=== PATIENT | male | born 1955 | race Caucasian/White ===

== ENCOUNTER 2020-10-15 13:52 | Inpatient (IN) | payer MEDICARE, OTHER ==
[2020-10-15] MEDS ORDERED: IPRATROPIUM-ALBUTEROL 3 ML NEB INHALATION STA (13:55)
[2020-10-15] MEDS ORDERED: ACETAMINOPHEN TAB 325 MG TAB PO STA (13:55)
--- NOTE | 2020-10-15 14:08 | ED ---
General Adult HPI - General Chief complaint: Altered Mental Status Stated complaint: dyspnea Time Seen by Provider: 10/15/20 13:54 Source: patient, EMS, RN notes reviewed Mode of arrival: EMS Limitations: altered mental status - History of Present Illness Initial comments: Patient is a pleasant 64-year-old male presenting to emergency department by ambulance for dyspnea. Patient reportedly has been missing his dialysis and police have been called several times for well check. Patient has refused to go for dialysis. Patient was found today to be altered during will check. Patient is a poor historian. Patient does admit to being short of breath. EMS was concerned for possible fever. - Related Data Home Medications Medication Instructions Recorded Confirmed Calcium Acetate [PhosLo] 1,334 mg PO AC-TID 02/20/15 03/01/15 amLODIPine [Norvasc] 10 mg PO DAILY@1500 02/20/15 03/01/15 Previous Rx's Medication Instructions Recorded Epoetin Juanpablo [Procrit] 4,000 unit SQ MoWeFr vial 03/09/15 HYDROcodone/APAP 7.5-325MG [[place] 1 each PO Q6H PRN #12 tab 03/09/15 7.5-325] bisacodyL [Dulcolax] 10 mg PO DAILY PRN #20 tablet. 03/09/15 Allergies Allergy/AdvReac Type Severity Reaction Status Date / Time Sulfa (Sulfonamide Allergy Rash/Hives Verified 03/01/15 13:26 Antibiotics) Review of Systems ROS Statement: Those systems with pertinent positive or pertinent negative responses have been documented in the HPI. ROS Other: All systems not noted in ROS Statement are negative. Constitutional: Reports: fever Eyes: Denies: eye pain ENT: Denies: ear pain Respiratory: Reports: dyspnea Cardiovascular: Denies: chest pain Endocrine: Denies: fatigue Gastrointestinal: Denies: abdominal pain Genitourinary: Denies: dysuria Musculoskeletal: Denies: back pain Skin: Denies: rash Neurological: Denies: weakness Past Medical History Past Medical History: Hypertension Additional Past Medical History / Comment(s): DIALYSIS T,TH,SA History of Any Multi-Drug Resistant Organisms: None Reported Additional Past Surgical History / Comment(s): FISTULA Past Psychological History: No Psychological Hx Reported Smoking Status: Unknown if ever smoked Past Alcohol Use History: None Reported Past Drug Use History: None Reported - Past Family History Mother Family Medical History: Dementia, Hypertension General Exam Limitations: altered mental status General appearance: alert Head exam: Present: normocephalic Eye exam: Present: normal appearance ENT exam: Present: mucous membranes dry Neck exam: Present: normal inspection Respiratory exam: Present: respiratory distress, rales Cardiovascular Exam: Present: regular rate, normal rhythm GI/Abdominal exam: Present: soft. Absent: tenderness Extremities exam: Present: pedal edema (+1 bilateral). Absent: calf tenderness Neurological exam: Present: alert. Absent: motor sensory deficit Expanded Neurological exam: Present: protecting the airway Patient oriented to: Present: person, place Psychiatric exam: Present: normal affect, normal mood Skin exam: Present: normal color Course Vital Signs 10/15/20 10/15/20 10/15/20 13:53 14:26 14:35 Temperature 103.3 F H Pulse Rate 87 80 80 Respiratory 22 31 H 21 Rate Blood Pressure 145/83 O2 Sat by Pulse 99 Oximetry - Reevaluation(s) Reevaluation #1: 10/15/20 14:15 Call from patient's dialysis center states last dialysis was 5 days ago EKG Findings - EKG Comments: EKG Findings:: Normal sinus rhythm with rate of 86. MO 158. QRS 124. QT 380. QTC 454 per left axis. LVH with repolarization change. Lateral T wave inversion in V6. Medical Decision Making - Medical Decision Making Patient reevaluated and improving with BiPAP. Patient updated on results and plan. Case was discussed with Dr. Mederos, who will admit for hospital call. - Lab Data Lab Results 10/15/20 10/15/20 10/15/20 Range/Units 14:03 14:03 14:03 PT 13.3 H (9.0-12.0) sec INR 1.3 H (<1.2) APTT 25.5 (22.0-30.0) sec Plasma Lactic Acid Kory 1.7 (0.7-2.0) mmol/L Coronavirus (PCR) Not Detected (Not Detectd) - Radiology Data Radiology results: image reviewed (Masslike consolidation right upper lobe) Disposition Clinical Impression: Pneumonia, Sepsis Disposition: ADMITTED IP TO THIS HOSP Condition: Serious Is patient prescribed a controlled substance at d/c from ED?: No Referrals: None,Stated [Primary Care Provider] - 1-2 days Decision Time: 14:55
[2020-10-15] MEDS ORDERED: IPRATROPIUM-ALBUTEROL 3 ML NEB INHALATION PRN (14:11)
[2020-10-15] MEDS ORDERED: AZITHROMYCIN 500 MG in SODIUM CHLORIDE 0.9% 250 ML IVPB STA (14:11)
[2020-10-15] MEDS ORDERED: PNEUMONIA PROTOCOL UTILIZED 1 EACH MISC PO PRN (14:11)
--- NOTE | 2020-10-15 14:17 | XR ---
EXAMINATION TYPE: XR chest 1V portable DATE OF EXAM: 10/15/2020 COMPARISON: Chest x-ray May 15, 2012 HISTORY: Fever and shortness of breath TECHNIQUE: Single frontal view of the chest is obtained. FINDINGS: There is chronic parenchymal change with new right upper lung opacity. There is additiona l medial right mid to lower lung opacity. No mediastinal shift. Left lung clear. No significant pleur al effusion or pneumothorax. The cardiac silhouette size is more prominent and enlarged on current st udy with atherosclerotic aorta. The osseous structures are intact. IMPRESSION: Cardiomegaly and chronic parenchymal changes with right upper lung and medial right mid to lower lung masslike consolidation. Correlate for multilobar pneumonia. Follow-up studies after rafa atment advised to exclude underlying mass.
[2020-10-15 14:43] LABS: INR 1.3 (<1.2); Partial Thromboplastin Time 25.5 sec (22.0-30.0); Prothrombin Time 13.3 sec (9.0-12.0)
[2020-10-15 14:45] LABS: Albumin 3.3 g/dL (3.5-5.0); Calcium 9.8 mg/dL (8.4-10.2); Total Protein 5.9 g/dL (6.3-8.2)
[2020-10-15 14:53] LABS: Potassium 6.8 mmol/L (3.5-5.1)
[2020-10-15 15:03] LABS: Basophils % (A) 0 %; Eosinophils % (A) 0 %; HCT 33.3 % (39.0-53.0); HGB 11.2 gm/dL (13.0-17.5); Lymphocytes # (A) 0.2 k/uL (1.0-4.8); Lymphocytes % (A) 3 %; MCH 32.9 pg (25.0-35.0); MCHC 33.5 g/dL (31.0-37.0); MCV 98.1 fL (80.0-100.0); Macrocytosis Slight; Mean Platelet Volume 10.6; Monocytes # (A) 0.3 k/uL (0-1.0); Monocytes % (A) 3 %; Neutrophils # (A) 8.3 k/uL (1.3-7.7); Neutrophils % (A) 93 %; Platelet Count 152 k/uL (150-450); RBC 3.39 m/uL (4.30-5.90); RDW 15.6 % (11.5-15.5); WBC 8.9 k/uL (3.8-10.6)
[2020-10-15] MEDS ORDERED: DEXTROSE 50% SYRINGE 50 ML IVP STA (15:51)
[2020-10-15] MEDS ORDERED: INSULIN REGULAR 100 UNIT/ML VIAL (IV) IV ONE (16:00)
[2020-10-15 16:02] LABS: Glucose,Whole Blood 117 mg/dL (75-99)
[2020-10-15] MEDS: IPRATROPIUM-ALBUTEROL 3 ML NEB INHALATION SCH ×2 (16:15→19:21)
[2020-10-15] MEDS ORDERED: CALCIUM GLUCONATE 1 GM in SODIUM CHLORIDE 0.9% 100 ML IVPB ONE (16:38)
[2020-10-15] MEDS ORDERED: SODIUM BICARB 8.4% 50 ML SYR (1 MEQ/ML) IV STA (16:39)
[2020-10-15 16:52] LABS: ABG HCO3 21 mmol/L (21-25); ABG Oxygen Saturation 98.5 % (94-97); ABG PCO2 32 mmHg (35-45); ABG PH 7.43 (7.35-7.45); ABG PO2 143 mmHg (83-108); ABG TCO2 22 mmol/L (19-24)
[2020-10-15 17:04] LABS: Glucose,Whole Blood 178 mg/dL (75-99)
[2020-10-15 17:51] LABS: Calcium 9.7 mg/dL (8.4-10.2); Magnesium 3.1 mg/dL (1.6-2.3); Potassium 5.6 mmol/L (3.5-5.1)
[2020-10-15 18:15] LABS: Phosphorus 9.2 mg/dL (2.5-4.5)
--- NOTE | 2020-10-15 20:54 | P.GSCN ---
History of Present Illness Consult date: 10/15/20 History of present illness: Harinder is a 64 y/o male who presented to the ER via ambulance for shortness of breath. He has refused on multiple occasions to go to dialysis and has reportedly missed the last week. Apparently he has had multiple wellness checks. Poor historian, apparently the daytime dialysis nurse reported the fistula to be non functional and subsequent catheter was requested. Pt unable to give much information given mental status Past Medical History Past Medical History: Hypertension Additional Past Medical History / Comment(s): DIALYSIS T,TH,SA History of Any Multi-Drug Resistant Organisms: None Reported Additional Past Surgical History / Comment(s): FISTULA Past Psychological History: No Psychological Hx Reported Smoking Status: Unknown if ever smoked Past Alcohol Use History: None Reported Past Drug Use History: None Reported - Past Family History Mother Family Medical History: Dementia, Hypertension Medications and Allergies Home Medications Medication Instructions Recorded Confirmed Type amLODIPine [Norvasc] 10 mg PO DAILY 02/20/15 10/15/20 History Carvedilol [Coreg] 25 mg PO BID 10/15/20 10/15/20 History Doxazosin [Cardura] 2 mg PO BID 10/15/20 10/15/20 History Fosrenal 1 tab PO AC-TID 10/15/20 10/15/20 History Pantoprazole Sodium [Protonix] 40 mg PO DAILY PRN 10/15/20 10/15/20 History Patiromer Calcium Sorbitex 8.4 gm PO DAILY 10/15/20 10/15/20 History [Veltassa] Renaplex-D 1 tab PO DAILY 10/15/20 10/15/20 History Sevelamer [Renvela] 1,600 mg PO AC-TID 10/15/20 10/15/20 History cloNIDine HCL [Catapres] 0.3 mg PO Q8H 10/15/20 10/15/20 History Allergies Allergy/AdvReac Type Severity Reaction Status Date / Time Sulfa (Sulfonamide Allergy Rash/Hives Verified 10/15/20 16:06 Antibiotics) Surgical - Exam Vital Signs Temp Pulse Resp BP Pulse Ox 103.3 F H 87 22 145/83 99 10/15/20 13:53 10/15/20 13:53 10/15/20 13:53 10/15/20 13:53 10/15/20 13:53 General is a lethargic male in no acute distress. HEENT normocephalic. CPAP in place. heart appears regular. Lungs with coarse breath sounds. Left upper extremity fistula aneurysmal, good palpable thrill almost throughout. Dilated veins up to axilla/shoulder with palpable thrill. Results - Labs 10/15/20 14:03 10/15/20 17:10 Abnormal Lab Results - Last 24 Hours (Table) 10/15/20 10/15/20 10/15/20 Range/Units 14:03 14:03 14:03 RBC 3.39 L (4.30-5.90) m/uL Hgb 11.2 L (13.0-17.5) gm/dL Hct 33.3 L (39.0-53.0) % RDW 15.6 H (11.5-15.5) % Neutrophils # 8.3 H (1.3-7.7) k/uL Lymphocytes # 0.2 L (1.0-4.8) k/uL PT 13.3 H (9.0-12.0) sec INR 1.3 H (<1.2) ABG pCO2 (35-45) mmHg ABG pO2 (83-108) mmHg ABG O2 Saturation (94-97) % Potassium 6.8 H* (3.5-5.1) mmol/L Carbon Dioxide 18 L (22-30) mmol/L BUN 175 H* (9-20) mg/dL Creatinine 18.65 H* (0.66-1.25) mg/dL Glucose 120 H (74-99) mg/dL POC Glucose (mg/dL) (75-99) mg/dL Phosphorus (2.5-4.5) mg/dL Magnesium (1.6-2.3) mg/dL AST 108 H (17-59) U/L Alkaline Phosphatase 33 L (38-126) U/L Total Protein 5.9 L (6.3-8.2) g/dL Albumin 3.3 L (3.5-5.0) g/dL 10/15/20 10/15/20 10/15/20 Range/Units 16:01 16:49 17:03 RBC (4.30-5.90) m/uL Hgb (13.0-17.5) gm/dL Hct (39.0-53.0) % RDW (11.5-15.5) % Neutrophils # (1.3-7.7) k/uL Lymphocytes # (1.0-4.8) k/uL PT (9.0-12.0) sec INR (<1.2) ABG pCO2 32 L (35-45) mmHg ABG pO2 143 H (83-108) mmHg ABG O2 Saturation 98.5 H (94-97) % Potassium (3.5-5.1) mmol/L Carbon Dioxide (22-30) mmol/L BUN (9-20) mg/dL Creatinine (0.66-1.25) mg/dL Glucose (74-99) mg/dL POC Glucose (mg/dL) 117 H 178 H (75-99) mg/dL Phosphorus (2.5-4.5) mg/dL Magnesium (1.6-2.3) mg/dL AST (17-59) U/L Alkaline Phosphatase (38-126) U/L Total Protein (6.3-8.2) g/dL Albumin (3.5-5.0) g/dL 10/15/20 Range/Units 17:10 RBC (4.30-5.90) m/uL Hgb (13.0-17.5) gm/dL Hct (39.0-53.0) % RDW (11.5-15.5) % Neutrophils # (1.3-7.7) k/uL Lymphocytes # (1.0-4.8) k/uL PT (9.0-12.0) sec INR (<1.2) ABG pCO2 (35-45) mmHg ABG pO2 (83-108) mmHg ABG O2 Saturation (94-97) % Potassium 5.6 H (3.5-5.1) mmol/L Carbon Dioxide 19 L (22-30) mmol/L BUN 181 H* (9-20) mg/dL Creatinine 18.86 H* (0.66-1.25) mg/dL Glucose 161 H (74-99) mg/dL POC Glucose (mg/dL) (75-99) mg/dL Phosphorus 9.2 H* (2.5-4.5) mg/dL Magnesium 3.1 H (1.6-2.3) mg/dL AST (17-59) U/L Alkaline Phosphatase (38-126) U/L Total Protein (6.3-8.2) g/dL Albumin (3.5-5.0) g/dL Diabetes panel 10/15/20 10/15/20 Range/Units 14:03 17:10 Sodium 139 140 (137-145) mmol/L Potassium 6.8 H* 5.6 H (3.5-5.1) mmol/L Chloride 99 100 (98-107) mmol/L Carbon Dioxide 18 L 19 L (22-30) mmol/L BUN 175 H* 181 H* (9-20) mg/dL Creatinine 18.65 H* 18.86 H* (0.66-1.25) mg/dL Glucose 120 H 161 H (74-99) mg/dL Calcium 9.8 9.7 (8.4-10.2) mg/dL AST 108 H (17-59) U/L ALT 36 (4-49) U/L Alkaline Phosphatase 33 L (38-126) U/L Total Protein 5.9 L (6.3-8.2) g/dL Albumin 3.3 L (3.5-5.0) g/dL Calcium panel 10/15/20 10/15/20 Range/Units 14:03 17:10 Calcium 9.8 9.7 (8.4-10.2) mg/dL Phosphorus 9.2 H* (2.5-4.5) mg/dL Albumin 3.3 L (3.5-5.0) g/dL Pituitary panel 10/15/20 10/15/20 Range/Units 14:03 17:10 Sodium 139 140 (137-145) mmol/L Potassium 6.8 H* 5.6 H (3.5-5.1) mmol/L Chloride 99 100 (98-107) mmol/L Carbon Dioxide 18 L 19 L (22-30) mmol/L BUN 175 H* 181 H* (9-20) mg/dL Creatinine 18.65 H* 18.86 H* (0.66-1.25) mg/dL Glucose 120 H 161 H (74-99) mg/dL Calcium 9.8 9.7 (8.4-10.2) mg/dL Adrenal panel 10/15/20 10/15/20 Range/Units 14:03 17:10 Sodium 139 140 (137-145) mmol/L Potassium 6.8 H* 5.6 H (3.5-5.1) mmol/L Chloride 99 100 (98-107) mmol/L Carbon Dioxide 18 L 19 L (22-30) mmol/L BUN 175 H* 181 H* (9-20) mg/dL Creatinine 18.65 H* 18.86 H* (0.66-1.25) mg/dL Glucose 120 H 161 H (74-99) mg/dL Calcium 9.8 9.7 (8.4-10.2) mg/dL Total Bilirubin 1.0 (0.2-1.3) mg/dL AST 108 H (17-59) U/L ALT 36 (4-49) U/L Alkaline Phosphatase 33 L (38-126) U/L Total Protein 5.9 L (6.3-8.2) g/dL Albumin 3.3 L (3.5-5.0) g/dL Assessment and Plan Assessment: ESRD noncompliance [facility] dialysis uremia pyrexic Plan: dialysis access appears to be fine, wait until 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
[2020-10-16] MEDS: IPRATROPIUM-ALBUTEROL 3 ML NEB INHALATION SCH ×4 (07:37→20:45)
--- NOTE | 2020-10-16 08:13 | XR ---
EXAMINATION TYPE: XR chest 1V portable DATE OF EXAM: 10/16/2020 COMPARISON: 10/15/2020 INDICATION: Pneumonia TECHNIQUE: Single frontal view of the chest is obtained. FINDINGS: The heart size is upper limits of normal. The pulmonary vasculature is normal. There is large consolidation right upper lobe can be compatible with pneumonia. There may be some imp rovement over the interval. IMPRESSION: 1. Large right upper lobe consolidation can be compatible with pneumonia. Some improvement may be pre sent. Continued follow-up to clearing is recommended.
[2020-10-16] MEDS ORDERED: AZITHROMYCIN 500 MG TAB PO SCH (09:00)
--- NOTE | 2020-10-16 09:38 | CT ---
EXAMINATION TYPE: CT brain wo con DATE OF EXAM: 10/16/2020 COMPARISON: None HISTORY: Unequal pupils, sepsis, pneumonia CT DLP: 1099.4 mGycm Automated exposure control for dose reduction was used. FINDINGS: Mild to moderate generalized degenerative change. Low-attenuation in the white matter is nonspecific but most typical remote white matter ischemia. No midline shift or mass effect. There is nodular prom inence the basilar tip. Calvarium intact. Craniocervical junction maintained. Sella turcica has a normal appearance. Intracra nial atherosclerotic changes noted. Tiny low density within the right basal ganglia compatible with r emote lacunar infarct. IMPRESSION: DEGENERATIVE AND NONSPECIFIC WHITE MATTER CHANGES MOST TYPICAL OF REMOTE ISCHEMIA NOTED NODULAR PROMI NENCE OF THE BASILAR TIP COULD BE ASSOCIATED WITH A SMALL ANEURYSM SHORT-TERM FOLLOW-UP MRA MASHPEE OF ALFONSO RECOMMENDED..
[2020-10-16] MEDS ORDERED: VANCOMYCIN IV PER PHARMACY 1 EACH MISC MISCELLANE PRN (09:44)
[2020-10-16] MEDS ORDERED: DEXAMETHASONE SOD PHOSPHATE 4 MG/ML 1 ML VIAL IV PRN (09:51)
[2020-10-16] MEDS: LORazepam 2 MG/ML INJ ONE ×2 (09:56→10:06)
[2020-10-16] MEDS ORDERED: VANCOMYCIN 1,250 MG in SODIUM CHLORIDE 0.9% 250 ML IVPB ONE (10:00)
--- NOTE | 2020-10-16 10:02 | P.NPCON ---
History of Present Illness - Reason for Consult end stage renal disease - History of Present Illness Reason for consultation: End-stage renal disease History of present illness: Patient is a 64-year-old male seen in renal consultation for end-stage renal disease. He is maintained on hemodialysis on Monday schedule via left upper extremity AV fistula. Patient is usually very compliant with hemodialysis treatments outpatient but missed the past week. He was found to be altered during wellness check and was brought to the hospital. He is currently on BiPAP. He is not a reliable historian. Potassium level w case was discussed with the neurologist and a CT angiogram of the head and neck will be ordered. as 6.8 on admission and he underwent emergent hemodialysis last night. Labs from this morning are pending. Blood pressures stable. One of his pupils as noted to be nonreactive. Computed tomography scan revealed no acute changes. Patient also had a black colored bowel movement this morning. Vital signs are stable. General: The patient appeared well nourished and normally developed. HEENT: Currently on BiPAP. LUNGS: Breath sounds decreased. HEART: Rate and Rhythm are regular. ABDOMEN: Soft, no distention. EXTREMITITES: No edema. Past Medical History Past Medical History: Hypertension Additional Past Medical History / Comment(s): DIALYSIS ,, History of Any Multi-Drug Resistant Organisms: None Reported Additional Past Surgical History / Comment(s): FISTULA Past Psychological History: No Psychological Hx Reported Smoking Status: Unknown if ever smoked Past Alcohol Use History: None Reported Past Drug Use History: None Reported - Past Family History Mother Family Medical History: Dementia, Hypertension Medications and Allergies Home Medications Medication Instructions Recorded Confirmed Type amLODIPine [Norvasc] 10 mg PO DAILY 02/20/15 10/15/20 History Carvedilol [Coreg] 25 mg PO BID 10/15/20 10/15/20 History Doxazosin [Cardura] 2 mg PO BID 10/15/20 10/15/20 History Fosrenal 1 tab PO AC-TID 10/15/20 10/15/20 History Pantoprazole Sodium [Protonix] 40 mg PO DAILY PRN 10/15/20 10/15/20 History Patiromer Calcium Sorbitex 8.4 gm PO DAILY 10/15/20 10/15/20 History [Veltassa] Renaplex-D 1 tab PO DAILY 10/15/20 10/15/20 History Sevelamer [Renvela] 1,600 mg PO AC-TID 10/15/20 10/15/20 History cloNIDine HCL [Catapres] 0.3 mg PO Q8H 10/15/20 10/15/20 History Allergies Allergy/AdvReac Type Severity Reaction Status Date / Time Sulfa (Sulfonamide Allergy Rash/Hives Verified 10/15/20 16:06 Antibiotics) Physical Exam Vitals: Vital Signs Temp Pulse Pulse Resp BP BP Pulse Ox 10/16/20 07:50 82 10/16/20 07:39 80 10/16/20 04:00 99 F 86 29 H 167/97 10/16/20 02:00 27 H 10/16/20 00:00 99.8 F H 10/15/20 23:04 101.2 F H 67 139/97 10/15/20 19:37 76 10/15/20 19:24 73 10/15/20 18:35 101.2 F H 75 27 H 141/85 95 10/15/20 16:25 80 24 10/15/20 16:15 73 28 H 99 10/15/20 16:00 101.2 F H 77 20 128/82 98 10/15/20 15:30 75 22 135/84 98 10/15/20 15:15 77 20 136/83 98 10/15/20 15:00 81 22 141/84 100 10/15/20 14:35 80 21 10/15/20 14:26 80 31 H 10/15/20 13:53 103.3 F H 87 22 145/83 99 Intake and Output 10/15/20 10/16/20 10/16/20 22:59 06:59 14:59 Output Total 0 1000 Balance 0 -1000 Output: Urine 0 0 Hemodialysis 1000 Other: Voiding Method Urinal # Bowel Movements 1 Weight 63.4 kg Results - Lab Results Most recent lab results ABG pH 7.43 (7.35-7.45) 10/15/20 16:49 ABG pCO2 32 mmHg (35-45) L 10/15/20 16:49 ABG pO2 143 mmHg (83-108) H 10/15/20 16:49 ABG HCO3 21 mmol/L (21-25) 10/15/20 16:49 ABG O2 Saturation 98.5 % (94-97) H 10/15/20 16:49 Calcium 9.7 mg/dL (8.4-10.2) 10/15/20 17:10 Phosphorus 9.2 mg/dL (2.5-4.5) H* 10/15/20 17:10 Magnesium 3.1 mg/dL (1.6-2.3) H 10/15/20 17:10 10/15/20 14:03 10/15/20 17:10 Assessment and Plan Plan: Assessment: 1. End-stage renal disease maintained on hemodialysis on Monday schedule via left approximately AV fistula. 2. Altered mental status. Questionable aneurysm versus stroke. CT angiogram of the head and neck will be ordered. Case discussed with neurology. 3. Hyperkalemia secondary to chronic kidney disease and missed dialysis treatments. Patient has chronic hyperkalemia and is maintained on Veltassa as outpatient. He does not make urine. 4. Melena. Possible uremic bleed. 5. Chronic kidney disease mineral bone disease. 6. Metabolic acidosis secondary to chronic kidney disease. 7. Hypertension with chronic disease. 8. Possible pneumonia on chest x-ray. On antibiotics. Plan: Hemodialysis today and again tomorrow. I will give him a dose of IV DDAVP. Check CBC and BMP now. CT angiogram of the head and neck pending. Add phosphate binders once able to tolerate oral intake. Thank you for the consult patient. I will continue to follow the patient with you during his hospital stay.
[2020-10-16 10:15] LABS: HCT 30.8 % (39.0-53.0); HGB 10.2 gm/dL (13.0-17.5); MCH 32.6 pg (25.0-35.0); MCHC 33.2 g/dL (31.0-37.0); MCV 98.2 fL (80.0-100.0); Macrocytosis Slight; Mean Platelet Volume 9.9; Platelet Count 135 k/uL (150-450); RBC 3.14 m/uL (4.30-5.90); RDW 15.4 % (11.5-15.5); WBC 6.1 k/uL (3.8-10.6)
[2020-10-16] MEDS ORDERED: LACOSAMIDE IV 100 MG in SODIUM CHLORIDE 0.9% 50 ML IVPB STA (10:21)
[2020-10-16 10:24] LABS: INR 1.3 (<1.2); Prothrombin Time 13.6 sec (9.0-12.0)
[2020-10-16 10:25] LABS: Albumin 2.6 g/dL (3.5-5.0); Calcium 9.8 mg/dL (8.4-10.2); Potassium 5.4 mmol/L (3.5-5.1); Total Bilirubin 0.8 mg/dL (0.2-1.3); Total Protein 5.1 g/dL (6.3-8.2)
[2020-10-16] MEDS ORDERED: DESMOPRESSIN ACETATE 19 MCG in SODIUM CHLORIDE 0.9% 50 ML IVPB ONE (11:00)
[2020-10-16] MEDS: PIPERACILLIN-TAZOBACTAM 3.375 GM in SODIUM CHLORIDE 0.9% 100 ML IVPB SCH ×2 (11:08→22:02)
--- NOTE | 2020-10-16 11:10 | P.CNPUL ---
History of Present Illness Consult date: 10/16/20 Requesting physician: Santi Monae Reason for consult: pneumonia Chief complaint: Altered mental status History of present illness: This is a 64-year-old white male with history of chronic renal failure, end- stage renal disease, patient is on hemodialysis normally Monday and Monday. Patient has always been very compliant with hemodialysis treatments and he always showed up to the dialysis unit for hemodialysis on a regular basis. However over the last week, patient has not been showing up for his hemodialysis, and a wellness check on the patient was done, and he was found u se, short of breath, and experiencing episodes of myoclonic jerks, and extremely weak. Patient was brought into the ER, and he was found to have right upper lobe pneumonia possibly even a left lower lobe infiltrate, patient is also found to have profound mental status change with profound weakness, myoclonic jerking, anisocoria with right pupil much more dilated than the left pupil. Patient is a lso found to be extremely uremic and encephalopathic. Workup in the ER included CT of the brain which was nondiagnostic except for slight asymmetry of the optic nerve on the right. Nonspecific white matter changes were noted. His labs showed no evidence of leukocytosis. He was hyperkalemic with a potassium as high as 6.8 acidotic with bicarb of 18 uremic with a BUN of 175 and creatinine of 18.65. COVID-19 PCR was negative. ABG on BiPAP showed a pO2 of 143 pCO2 of 32 pH of 7.43. And this was on IPAP of 12 and EPAP of 6 and FiO2 of 40%. Angiography CT of the head and neck is pending. Patient was admitted to the ICU, and I was asked to see him on consultation. As soon as I evaluated the patient, recommended stat neurological consultation, also recommended changing his antibiotics to vancomycin and Zosyn. Cultures are pending. Review of Systems ROS unobtainable: due to mental status Past Medical History Past Medical History: Hypertension Additional Past Medical History / Comment(s): DIALYSIS T,, History of Any Multi-Drug Resistant Organisms: None Reported Additional Past Surgical History / Comment(s): FISTULA Past Psychological History: No Psychological Hx Reported Smoking Status: Unknown if ever smoked Past Alcohol Use History: None Reported Past Drug Use History: None Reported - Past Family History Mother Family Medical History: Dementia, Hypertension Medications and Allergies Home Medications Medication Instructions Recorded Confirmed Type amLODIPine [Norvasc] 10 mg PO DAILY 02/20/15 10/15/20 History Carvedilol [Coreg] 25 mg PO BID 10/15/20 10/15/20 History Doxazosin [Cardura] 2 mg PO BID 10/15/20 10/15/20 History Fosrenal 1 tab PO AC-TID 10/15/20 10/15/20 History Pantoprazole Sodium [Protonix] 40 mg PO DAILY PRN 10/15/20 10/15/20 History Patiromer Calcium Sorbitex 8.4 gm PO DAILY 10/15/20 10/15/20 History [Veltassa] Renaplex-D 1 tab PO DAILY 10/15/20 10/15/20 History Sevelamer [Renvela] 1,600 mg PO AC-TID 10/15/20 10/15/20 History cloNIDine HCL [Catapres] 0.3 mg PO Q8H 10/15/20 10/15/20 History Allergies Allergy/AdvReac Type Severity Reaction Status Date / Time Sulfa (Sulfonamide Allergy Rash/Hives Verified 10/15/20 16:06 Antibiotics) Physical Exam Vitals: Vital Signs Temp Pulse Pulse Resp BP BP Pulse Ox 10/16/20 07:50 82 10/16/20 07:39 80 10/16/20 04:00 99 F 86 29 H 167/97 10/16/20 02:00 27 H 10/16/20 00:00 99.8 F H 10/15/20 23:04 101.2 F H 67 139/97 10/15/20 19:37 76 10/15/20 19:24 73 10/15/20 18:35 101.2 F H 75 27 H 141/85 95 10/15/20 16:25 80 24 10/15/20 16:15 73 28 H 99 10/15/20 16:00 101.2 F H 77 20 128/82 98 10/15/20 15:30 75 22 135/84 98 10/15/20 15:15 77 20 136/83 98 10/15/20 15:00 81 22 141/84 100 10/15/20 14:35 80 21 10/15/20 14:26 80 31 H 10/15/20 13:53 103.3 F H 87 22 145/83 99 Intake and Output 10/15/20 10/16/20 10/16/20 22:59 06:59 14:59 Output Total 0 1000 0 Balance 0 -1000 0 Output: Urine 0 0 Hemodialysis 1000 0 Other: Voiding Method Urinal # Bowel Movements 1 Weight 63.4 kg Physical Exam: Revealed 64-year-old male frail looking, chronically ill-looking, extremely weak, comprehends simple instructions and follows simple instructions however he is noted to have myoclonic jerks all over his body, patient opens and closes eyes, wiggles his toes, but he has profound weakness in his upper extremities and lower extremities. Slight hyperreflexia is noted, pupils are unequal with the right pupil dilated. Head: Atraumatic, normocephalic. Patient is on BiPAP. HEENT:[Neck is supple.] [No neck masses.] [No thyromegaly.] [No JVD.] Chest: [Symmetrical chest expansion, diminished breath sound bilaterally crackles at the base. No rhonchi and no wheezes. Cardiac Exam: [Normal S1 and S2, no S3 gallop, no murmur.] Abdomen: [Soft, nontender, no megaly, no rebound, no guarding, normal bowel sounds.] Extremities: [No clubbing, no edema, no cyanosis.] [Left Arm AV fistula is noted.] Neurological Exam: Patient is noted to be encephalopathic. He does comprehend and follows simple instructions. But extremely weak. Noted to have myoclonic jerks all over. Noted to have anisocoria with right pupil much larger than the left pupil. Profound weakness noted in upper and lower extremities. Slight hyperreflexia noted. Patient has confused mental status. Results - Laboratory Findings CBC and BMP: 10/16/20 10:04 10/15/20 17:10 ABG ABG pH 7.43 (7.35-7.45) 10/15/20 16:49 ABG pCO2 32 mmHg (35-45) L 10/15/20 16:49 ABG pO2 143 mmHg (83-108) H 10/15/20 16:49 ABG O2 Saturation 98.5 % (94-97) H 10/15/20 16:49 PT/INR, D-dimer PT 13.6 sec (9.0-12.0) H 10/16/20 10:04 INR 1.3 (<1.2) H 10/16/20 10:04 Abnormal lab findings: Abnormal Labs 10/15/20 10/15/20 10/15/20 14:03 14:03 14:03 RBC 3.39 L Hgb 11.2 L Hct 33.3 L RDW 15.6 H Plt Count Neutrophils # 8.3 H Lymphocytes # 0.2 L PT 13.3 H INR 1.3 H APTT ABG pCO2 ABG pO2 ABG O2 Saturation Potassium 6.8 H* Carbon Dioxide 18 L BUN 175 H* Creatinine 18.65 H* Glucose 120 H POC Glucose (mg/dL) Phosphorus Magnesium AST 108 H Alkaline Phosphatase 33 L Total Protein 5.9 L Albumin 3.3 L 10/15/20 10/15/20 10/15/20 16:01 16:49 17:03 RBC Hgb Hct RDW Plt Count Neutrophils # Lymphocytes # PT INR APTT ABG pCO2 32 L ABG pO2 143 H ABG O2 Saturation 98.5 H Potassium Carbon Dioxide BUN Creatinine Glucose POC Glucose (mg/dL) 117 H 178 H Phosphorus Magnesium AST Alkaline Phosphatase Total Protein Albumin 10/15/20 10/16/20 10/16/20 17:10 10:04 10:04 RBC 3.14 L Hgb 10.2 L Hct 30.8 L RDW Plt Count 135 L Neutrophils # Lymphocytes # PT 13.6 H INR 1.3 H APTT 35.0 H ABG pCO2 ABG pO2 ABG O2 Saturation Potassium 5.6 H Carbon Dioxide 19 L BUN 181 H* Creatinine 18.86 H* Glucose 161 H POC Glucose (mg/dL) Phosphorus 9.2 H* Magnesium 3.1 H AST Alkaline Phosphatase Total Protein Albumin - Diagnostic Findings Chest x-ray: image reviewed (As noted in HPI.) Additional studies: CT of the brain as noted in HPI. Assessment and Plan Assessment: Impression: Altered mental status, secondary to acute metabolic encephalopathy with severe uremia, known history of end-stage renal disease, but no hemodialysis for the last 1 week. Papilledema involving the right optic nerve, possible CVA. Further workup is pending. Possible CVA with encephalopathy profound weakness and myoclonic jerks as well as anisocoria/unequal pupillary sizes Acute rhabdomyolysis with significantly elevated CPK mostly because the patient has been inactive, and he may have fallen at home. Acute bilateral pneumonia with significant consolidation in the right upper lobe, strongly suspect aspiration pneumonia. Possible sepsis with pneumonia being the primary source. End-stage renal disease, on hemodialysis. History of hypertension Acute metabolic acidosis secondary to chronic kidney disease. Hyperkalemia secondary to chronic kidney disease and missed hemodialysis. Recommendation: Monitor patient in the ICU. Transition BiPAP to nasal cannula and titrate accordingly. Stat neurology consultation. Decadron 4 mg IV push every 6 hours for papilledema. Ophthalmology consultation to evaluate papilledema. CT angiogram of the head and neck, and consider MRI. EEG to be done. Although I strongly doubt seizures but not entirely ruled out. Hydrate patient with early because of his rhabdomyolysis. And monitor CPK. Hemodialysis today and every day for now. Antibiotics for presumptive aspiration pneumonia and sepsis, will empirically use vancomycin and Zosyn. GI and DVT prophylaxis. Address nutritional support/enteral feeding in the next 24 hours. Prognosis extremely poor and guarded, we'll continue to follow. Patient is critically ill. Time with Patient: Greater than 30
--- NOTE | 2020-10-16 11:33 | P.CNNES ---
History of Present Illness Consult date: 10/16/20 Requesting physician: Wander Fernando Reason for Consult: altered mental status change and unequal pupils History of Present Illness: This is a 64-year-old gentleman with medical history of end-stage renal disease on dialysis, hypertension who presented to the emergency department on the 10/16/2020 the ambulance for dyspnea. History is obtained from medical records as well as the medical team. Per his tile inspector (Dr. Fernando) who is known to him, patient baseline is awake alert rated 3 and verbalizes appropriately and is complying getting his hemodialysis except for the last 1 week he misses dialysis which is off from his baseline. Patient resides home alone. Per the patient nurse it is noted that the patient has unequal pupils and unknown last normal state and has been having tremors throughout the body as well as has confusion. A shallow medication per EMR is clonidine 0.3 mg every 8 hours, amlodipine 10 mg daily, Protonix, carvedilol 25 motor as it 1 tab twice a day, Doxazosin, Renaplex, Renvela, Veltassa. Some other workup in the hospital consisted of: Initial vital signs: Blood pressure of 145/83, heart rate of 87, respiratory of 22, temperature of 103.3 Fahrenheit rectal and pulse ox of 99% room air. He had a repeated the temperature of 101.2. White blood cell is 8.9 and a repeat is 6 0.1 thousand which is considered within normal limits. He had the slight neutrophilic of 8.3. Chemistry panel is a sodium of 139 considered within normal limits, glucose of 120 which is slightly elevated but unremarkable, calcium initial one was 9.8 which is considered within normal limits. His initial potassium is 6.8 which is a significantly elevated. His creatinine on presentation to 18.6 which is above his baseline and he missed dialysis for a week. As well as the BUN is 175 on presentation the which is also elevated. AST of 108 which is slightly elevated but the ALT is 36 which is considered within normal limits. Phosphorus is 9.2 which is elevated and magnesium 3.1 which is also elevated. His potassium is trending down and the last one is 5.6. CT of the head is reported as degenerative and nonspecific white matter changes most typical of remote ischemic noted nodular prominence of basilar tip could be associated with a small aneurysm short segment follow-up [facility] [place] recommended. Chest x-ray was reported as cardiomegaly and chronic parenchymal changes with the right upper long and medial right mid to lower lung mass likely consolidation. Correlate for multi-lobe pneumonia. Follow-up studies after treatment advised to exclude underlying mass. Repeat chest x-ray on 10/16/2020 is reported as large right upper lobe consolidation can be compatible with pneumonia. Some improvement may be present. Continue to follow up to clearing is recommended that. Review of Systems Review of system is limited but the per positive and negative as per HPI. Past Medical History Past Medical History: Hypertension Additional Past Medical History / Comment(s): DIALYSIS T,TH,SA History of Any Multi-Drug Resistant Organisms: None Reported Additional Past Surgical History / Comment(s): FISTULA Past Psychological History: No Psychological Hx Reported Smoking Status: Unknown if ever smoked Past Alcohol Use History: None Reported Past Drug Use History: None Reported - Past Family History Mother Family Medical History: Dementia, Hypertension Medications and Allergies Home Medications Medication Instructions Recorded Confirmed Type amLODIPine [Norvasc] 10 mg PO DAILY 02/20/15 10/15/20 History Carvedilol [Coreg] 25 mg PO BID 10/15/20 10/15/20 History Doxazosin [Cardura] 2 mg PO BID 10/15/20 10/15/20 History Fosrenal 1 tab PO AC-TID 10/15/20 10/15/20 History Pantoprazole Sodium [Protonix] 40 mg PO DAILY PRN 10/15/20 10/15/20 History Patiromer Calcium Sorbitex 8.4 gm PO DAILY 10/15/20 10/15/20 History [Veltassa] Renaplex-D 1 tab PO DAILY 10/15/20 10/15/20 History Sevelamer [Renvela] 1,600 mg PO AC-TID 10/15/20 10/15/20 History cloNIDine HCL [Catapres] 0.3 mg PO Q8H 10/15/20 10/15/20 History Allergies Allergy/AdvReac Type Severity Reaction Status Date / Time Sulfa (Sulfonamide Allergy Rash/Hives Verified 10/15/20 16:06 Antibiotics) Physical Examination - Vital Signs Vital Signs: Vital Signs Temp Pulse Pulse Resp BP BP Pulse Ox 10/16/20 07:50 82 10/16/20 07:39 80 10/16/20 04:00 99 F 86 29 H 167/97 10/16/20 02:00 27 H 10/16/20 00:00 99.8 F H 10/15/20 23:04 101.2 F H 67 139/97 10/15/20 19:37 76 10/15/20 19:24 73 10/15/20 18:35 101.2 F H 75 27 H 141/85 95 10/15/20 16:25 80 24 10/15/20 16:15 73 28 H 99 10/15/20 16:00 101.2 F H 77 20 128/82 98 10/15/20 15:30 75 22 135/84 98 10/15/20 15:15 77 20 136/83 98 10/15/20 15:00 81 22 141/84 100 10/15/20 14:35 80 21 10/15/20 14:26 80 31 H 10/15/20 13:53 103.3 F H 87 22 145/83 99 Intake and Output 10/15/20 10/16/20 10/16/20 22:59 06:59 14:59 Output Total 0 1000 0 Balance 0 -1000 0 Output: Urine 0 0 Hemodialysis 1000 0 Other: Voiding Method Urinal # Bowel Movements 1 Weight 63.4 kg GENERAL: The patient is lying in bed and seems in moderate acute distress. HENT: Supple neck and no nuchal ridigity. CHEST: The heart rate is regular rate rhythm. No murmurs to auscultation. No carotid bruit bilaterally. LUNG: Clear to auscultation bilaterally no wheezing noted throughout. Not labored breathing. ABDOMEN/GI: Bowel sounds present in all 4 quadrants. No tenderness to palpation throughout. NEUROLOGICAL: Higher mental function: The patient is awake, alert, oriented to self only. Otherwise not responding to questions. She is following simple commands (showing thumbs up, closing and opening eyes and sticking tongue out). . Cranial nerves: The pupils are round, unequal, right is 6-7 while left is 3-4 and the right is sluggishly reactive to light. Has moderate ptosis of the right eye. Visual hurtado are hard to assess. Primary gaze is midline or slightly to right. EOM is hard to assess but felt he prefers right and time he would cross midline to left. No facial weakness. Has mild dysarthria. Was able to stick tongue out but was not moving it side to side. Otherwise could not assess rest of cranial nerves because of his condition. Motor: Gait is deferred. The strength is with assistance able to keep arms raised but would drift but did not fall on bed. I felt he was moving the right upper more than left while resting. Bilateral lowers with assistance would drop to floor. Decrease tone throughout. Has tremor throughout the body and it was repeating jerks/twitches and that including face. Cerebellum: Could not assess. Sensation: Could not assess. Reflexes (right/left): 2+ throughout except patellars are 2-3+ Plantars are mute bilaterally. Results Coagulation study: PT of 13.3, INR 1.3 and PTT of 25.5 the repeat INR is 1.3. Sanchez virus PCR was not detected. - Laboratory Findings CBC and BMP: 10/16/20 10:04 10/16/20 10:04 Abnormal Lab Findings: Abnormal Labs 10/15/20 10/15/20 10/15/20 14:03 14:03 14:03 RBC 3.39 L Hgb 11.2 L Hct 33.3 L RDW 15.6 H Plt Count Neutrophils # 8.3 H Lymphocytes # 0.2 L PT 13.3 H INR 1.3 H APTT ABG pCO2 ABG pO2 ABG O2 Saturation Potassium 6.8 H* Carbon Dioxide 18 L BUN 175 H* Creatinine 18.65 H* Glucose 120 H POC Glucose (mg/dL) Phosphorus Magnesium AST 108 H Alkaline Phosphatase 33 L Total Protein 5.9 L Albumin 3.3 L 10/15/20 10/15/20 10/15/20 16:01 16:49 17:03 RBC Hgb Hct RDW Plt Count Neutrophils # Lymphocytes # PT INR APTT ABG pCO2 32 L ABG pO2 143 H ABG O2 Saturation 98.5 H Potassium Carbon Dioxide BUN Creatinine Glucose POC Glucose (mg/dL) 117 H 178 H Phosphorus Magnesium AST Alkaline Phosphatase Total Protein Albumin 10/15/20 10/16/20 10/16/20 17:10 10:04 10:04 RBC 3.14 L Hgb 10.2 L Hct 30.8 L RDW Plt Count 135 L Neutrophils # Lymphocytes # PT 13.6 H INR 1.3 H APTT 35.0 H ABG pCO2 ABG pO2 ABG O2 Saturation Potassium 5.6 H Carbon Dioxide 19 L BUN 181 H* Creatinine 18.86 H* Glucose 161 H POC Glucose (mg/dL) Phosphorus 9.2 H* Magnesium 3.1 H AST Alkaline Phosphatase Total Protein Albumin Assessment and Plan Assessment: Encephalopathy seems multifactorial toxic-metabolic encephalopathy (missed dialysis for the past on week and has worsening of kidney and electrolyte deragement) as well septic encephalopathy (pneumonia). Right eye ptosis, unequal pupils (dilated over the right) and preference to the right: Rule out aneurysm vs mass effect and rule out stroke. Myoclonus throughout the body. Seems possibly metabolic. Cannot rule out seizures. Electrolyte imbalance hyperphosphatemia, hypermagnesemia Acute Pneumonia over the right. Hypertension chronic disease Plan: I ordered CT angiography of the head and neck. I ordered a stat EEG. I prophylactically the start the patient on Vimpat 100 mg IV loading dose then 50 mg IV every 12 hours.Patient was given 2 mg of Ativan in total. Every hour neuro checks Ordered 2-D echo and lipid panel. Ordered MRI of the brain and MRI Cervical without to rule out stroke or mass (Cannot get Gadolinium). Started the patient on Ceftriaxone 2gm every 12 hours, ampicillin and he is on Vacomycine for meningeal coverage (seems unlikely). Ordered hemoglobin A1c, vitamin B-12, folate level. Ordered ammonia level. TSH levels ordered by the ICU team and is pending. Consulted ophthalmology infection disease. 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 We'll defer the rest of medical management to the ICU team met. Next The plan is discussed with the patient's nurse and ICU team. Also discussed case with Nephrology team. Thank you for consultation. UPDATE: CT angiography of the head is reported as no large vessel intracranial arterial occlusion, significant stenosis or aneurysm at change is seen. Incidental severe right upper lobe consolidation and small bilateral pleural effusion. While for the CT angiography of the neck it is reported as moderate atherosclerotic change at the bilateral carotid bifurcation resulting in mild, less than 40% ICA stenosis on both sides. There may be a moderate narrowing at the right vertebral artery origin. MRI the brain is reported as no MRI evidence for recent infarct. Background mild diffuse cerebral atrophy and moderate to advanced nonspecific white matter changes favor product of chronic small vessel ischemia and patient of this age. Other etiologies not entirely excluded. Increased fluid in the left mastoid air cells could reflect product of mastoiditis, correlate clinically. MRI cervical spine was reported as suboptimal study. Multilevel degenerative changes as noted above. Spinal cold caliber and signal preserved. Routine EEG: There is mild to moderate encephalopathy. There are no focal slowing, epileptiform discharges or seizures on the EEG. The tremors/twitching is without EEG correlate for seizures. I spoke with Ophthamologist (Dr. Carballo) and he stated that patient does not have papilledema and he said the patient right eye is dilated and non-reactive. I went back and the his pupils are unequal with right significantly enlarge compared to left. But the right pupil is reactive (7mm-->4mm). Because of the images above the patient does not have an aneurysm, there is no significant occlusion or stenosis, there is no stroke. Unknown cause of patient right pupil symptoms. Ordered lumbar puncture (to rule out any central infection). If cannot get consent for Lumbar puncture, then I am giving an emergent consent. Please obtain opening pressure. I ordered CSF studies and some fungal . Consulted Anesthesiology STAT. This was discussed with the patient's nurse. Dr. Campbell will take over neurology service starting tomorrow AM. Joaquin Camacho M.D. Neuro-Hospitalist Time with Patient: Greater than 30
[2020-10-16 11:57] LABS: T4, Free (Free Thyroxine) 0.73 ng/dL (0.78-2.19)
[2020-10-16] MEDS ORDERED: AMPICILLIN 2,000 MG in SODIUM CHLORIDE 0.9% 100 ML IVPB SCH (12:00)
--- NOTE | 2020-10-16 12:07 | CT ---
EXAMINATION TYPE: CODE STROKE: CTA head neck DATE OF EXAM: 10/16/2020 COMPARISON: CT same day HISTORY: 64-year-old male confusion, Altered mental status. TECHNIQUE: Contiguous axial scanning of the head and neck performed with IV Contrast, patient injecte d with 65ml mL of Isovue 370. Coronal/sagittal MIP reconstructions performed. 3-D reconstructions gen erated on a dedicated independent workstation. CT DLP: 416.9 mGycm Automated exposure control for dose reduction was used. FINDINGS: NECK: Severe consolidation right upper lobe. Small bilateral pleural effusions. Mild atherosclerotic arch calcifications. Conventional vessel branching anatomy. Moderate atherosclerotic narrowing origin of the right vertebral artery and mild at the origin of the left vertebral artery. The vertebral arteries otherwise appear patent throughout the course. Right common carotid artery is patent. Moderate atherosclerotic calcifications right carotid bifurcation with mild, less than 40% narrowing proximal right ICA by NASCET criteria. Left common carotid artery is patent. Moderate atherosclerotic calcifications of the left carotid bifurcation with mild, less than 40% narr owing proximal left ICA by NASCET criteria. HEAD: Mild atherosclerotic calcifications bilateral V4 segments of the vertebral arteries. Otherwise, verte bral and basilar arteries are patent as is the remainder of the posterior circulation. Mild atherosclerotic calcifications within the carotid siphons. Otherwise, the internal carotid arter ies and remainder of the posterior circulation is patent. No aneurysmal change is identified. IMPRESSION: 1. NECK: MODERATE ATHEROSCLEROTIC CHANGE AT THE BILATERAL CAROTID BIFURCATIONS RESULTING IN MILD, LES S THAN 40% PROXIMAL ICA STENOSIS ON BOTH SIDES. THERE MAY BE A MODERATE NARROWING AT THE RIGHT VERTEB RAL ARTERY ORIGIN. 2. HEAD: NO LARGE VESSEL INTRACRANIAL ARTERIAL OCCLUSION, SIGNIFICANT STENOSIS, OR ANEURYSMAL CHANGE IS SEEN. 3. INCIDENTAL: SEVERE RIGHT UPPER LOBE CONSOLIDATION AND SMALL BILATERAL PLEURAL EFFUSIONS.
[2020-10-16] MEDS: SODIUM CHLORIDE 0.9% 1,000 ML IV SCH ×2 (12:26→20:39)
[2020-10-16 13:33] LABS: Magnesium 2.4 mg/dL (1.6-2.3)
[2020-10-16] MEDS ORDERED: LORazepam 2 MG/ML INJ IV STA (14:11)
--- NOTE | 2020-10-16 15:50 | MR ---
EXAMINATION TYPE: MR brain/cspine wo DATE OF EXAM: 10/16/2020 COMPARISON: CT brain earlier today. HISTORY: Right ptosis and unequal pupil. Stroke. R/O mass. Neck pain. TECHNIQUE: Multiplanar, multisequence imaging of the brain and brainstem and cervical spine are all p erformed without IV contrast. FINDINGS: BRAIN: Diffusion weighted images demonstrate no evidence of a recent infarct or other diffusion abnormality. There is mild ventricular and sulcal prominence redemonstrated. There are more prominent focal and co nfluent areas of T2 hyperintensity seen throughout the white matter bilaterally greatest at deep and periventricular levels. Lesions are nonspecific in appearance and distribution favor product of chron ic small vessel ischemic change. Midline structures redemonstrate normal morphology. The craniocervical junction appears within michael l limits. Slight prominence or dolichoectasia of basilar tip redemonstrated otherwise normal flow voi ds are noted. There is small mucous retention cyst or polyp in the inferior posterior left maxillary sinus. The visualized sinuses are otherwise clear and the globes are intact. Increased fluid signal l eft mastoid air cells redemonstrated IMPRESSION: 1. No MRI evidence for recent infarct. 2. Background mild diffuse cerebral atrophy and moderate to advanced nonspecific white matter changes favor product of chronic small vessel ischemic change in patient of this age. Other etiologies not e ntirely excluded. 3. Increased fluid signal left mastoid air cells could reflect product of mastoiditis, correlate clin ically. C-SPINE: FINDINGS: Exam suboptimal due to artifact degradation. Sagittal images of the cervical spine show the craniocervical junction to appear within normal limits. The cervical and upper thoracic spinal cord is normal in course caliber and signal. Slight grade 1 retrolisthesis C3 on C4. The vertebral body heights are normal. Moderate multilevel disc space narrowing and mild anterior spurring. Overall dif fuse diminished T1 and T2 signal of osseous structures perhaps artifact as no diffuse sclerosis seen on recent CT, correlate to exclude myeloproliferative disorder. Axial images significantly degraded by artifact. Axial images at C3-C4 level show broad-based right p aracentral spur disc complex effacing anterior thecal sac and causing moderate right-sided neural for aminal narrowing protrusion. Axial images show neural foramina to be mild to moderately narrowed at C 4-C5 level due to broad-based disc protrusion. Patent bilateral neural foramina at C5-C6 and C7-T1 1 levels with more moderate to severe right-sided narrowing at C6-C7 level thought present due to poste rior spur disc complex. IMPRESSION: Suboptimal study. Multilevel degenerative changes as noted above. Spinal cord caliber and signal preserved.
--- NOTE | 2020-10-16 17:09 | P.HPIM ---
History of Present Illness H&P Date: 10/16/20 Chief Complaint: Altered mental status 64-year-old male presenting to emergency department by ambulance for dyspnea. Patient reportedly has been missing his dialysis and police have been called several times for well check. Patient has refused to go for dialysis. Patient was found today to be altered during will check. Patient is a poor historian. Patient does admit to being short of breath. EMS was concerned for possible fever. Initial vital signs: Blood pressure of 145/83, heart rate of 87, respiratory of 22, temperature of 103.3 Fahrenheit rectal and pulse ox of 99% room air. He had a repeated the temperature of 101.2. White blood cell is 8.9 and a repeat is 6 0.1 thousand which is considered within normal limits. He had the slight neutrophilic of 8.3. Chemistry panel is a sodium of 139 considered within normal limits, glucose of 120 which is slightly elevated but unremarkable, calcium initial one was 9.8 which is considered within normal limits. His initial potassium is 6.8 which is a significantly elevated. His creatinine on presentation to 18.6 which is above his baseline and he missed dialysis for a week. As well as the BUN is 175 on presentation the which is also elevated. AST of 108 which is slightly elevated but the ALT is 36 which is considered within normal limits. Phosphorus is 9.2 which is elevated and magnesium 3.1 which is also elevated. His potassium is trending down and the last one is 5.6. CT of the head is reported as degenerative and nonspecific white matter changes most typical of remote ischemic noted nodular prominence of basilar tip could be associated with a small aneurysm short segment follow-up MRA [place] of [place] recommended. Chest x-ray was reported as cardiomegaly and chronic parenchymal changes with the right upper long and medial right mid to lower lung mass likely consolidation. Correlate for multi-lobe pneumonia. Follow-up studies after treatment advised to exclude underlying mass. Repeat chest x-ray on 10/16/2020 is reported as large right upper lobe consolidation can be compatible with pneumonia. Some improvement may be present. Continue to follow up to clearing is recommended that. Review of Systems ROS unobtainable: due to mental status Past Medical History Past Medical History: Hypertension Additional Past Medical History / Comment(s): DIALYSIS T,TH,SA History of Any Multi-Drug Resistant Organisms: None Reported Additional Past Surgical History / Comment(s): FISTULA Past Psychological History: No Psychological Hx Reported Smoking Status: Unknown if ever smoked Past Alcohol Use History: None Reported Past Drug Use History: None Reported - Past Family History Mother Family Medical History: Dementia, Hypertension Medications and Allergies Home Medications Medication Instructions Recorded Confirmed Type amLODIPine [Norvasc] 10 mg PO DAILY 02/20/15 10/15/20 History Carvedilol [Coreg] 25 mg PO BID 10/15/20 10/15/20 History Doxazosin [Cardura] 2 mg PO BID 10/15/20 10/15/20 History Fosrenal 1 tab PO AC-TID 10/15/20 10/15/20 History Pantoprazole Sodium [Protonix] 40 mg PO DAILY PRN 10/15/20 10/15/20 History Patiromer Calcium Sorbitex 8.4 gm PO DAILY 10/15/20 10/15/20 History [Veltassa] Renaplex-D 1 tab PO DAILY 10/15/20 10/15/20 History Sevelamer [Renvela] 1,600 mg PO AC-TID 10/15/20 10/15/20 History cloNIDine HCL [Catapres] 0.3 mg PO Q8H 10/15/20 10/15/20 History Allergies Allergy/AdvReac Type Severity Reaction Status Date / Time Sulfa (Sulfonamide Allergy Rash/Hives Verified 10/15/20 16:06 Antibiotics) Physical Exam Vitals: Vital Signs Temp Pulse Pulse Resp BP BP Pulse Ox 10/16/20 07:50 82 10/16/20 07:39 80 10/16/20 04:00 99 F 86 29 H 167/97 10/16/20 02:00 27 H 10/16/20 00:00 99.8 F H 10/15/20 23:04 101.2 F H 67 139/97 10/15/20 19:37 76 10/15/20 19:24 73 10/15/20 18:35 101.2 F H 75 27 H 141/85 95 10/15/20 16:25 80 24 10/15/20 16:15 73 28 H 99 10/15/20 16:00 101.2 F H 77 20 128/82 98 10/15/20 15:30 75 22 135/84 98 10/15/20 15:15 77 20 136/83 98 10/15/20 15:00 81 22 141/84 100 10/15/20 14:35 80 21 10/15/20 14:26 80 31 H 10/15/20 13:53 103.3 F H 87 22 145/83 99 Intake and Output 10/15/20 10/16/20 10/16/20 22:59 06:59 14:59 Output Total 0 1000 0 Balance 0 -1000 0 Output: Urine 0 0 Hemodialysis 1000 0 Other: Voiding Method Urinal # Bowel Movements 1 Weight 63.4 kg Head: Atraumatic, normocephalic. Patient is on BiPAP. HEENT:[Neck is supple.] [No neck masses.] [No thyromegaly.] [No JVD.] Chest: [Symmetrical chest expansion, diminished breath sound bilaterally crackles at the base. No rhonchi and no wheezes. Cardiac Exam: [Normal S1 and S2, no S3 gallop, no murmur.] Abdomen: [Soft, nontender, no megaly, no rebound, no guarding, normal bowel sounds.] Extremities: [No clubbing, no edema, no cyanosis.] [Left Arm AV fistula is noted.] Neurological Exam: Patient is noted to be encephalopathic. He does comprehend a nd follows simple instructions. But extremely weak. Noted to have myoclonic jerks all over. Noted to have anisocoria with right pupil much larger than the left pupil. Profound weakness noted in upper and lower extremities. Slight hyperreflexia noted. Patient has confused mental status. Results CBC & Chem 7: 10/16/20 10:04 10/16/20 10:04 Labs: Abnormal Lab Results - Last 24 Hours (Table) 10/15/20 10/15/20 10/15/20 Range/Units 14:03 14:03 14:03 RBC 3.39 L (4.30-5.90) m/uL Hgb 11.2 L (13.0-17.5) gm/dL Hct 33.3 L (39.0-53.0) % RDW 15.6 H (11.5-15.5) % Plt Count (150-450) k/uL Neutrophils # 8.3 H (1.3-7.7) k/uL Lymphocytes # 0.2 L (1.0-4.8) k/uL PT 13.3 H (9.0-12.0) sec INR 1.3 H (<1.2) APTT (22.0-30.0) sec ABG pCO2 (35-45) mmHg ABG pO2 (83-108) mmHg ABG O2 Saturation (94-97) % Potassium 6.8 H* (3.5-5.1) mmol/L Carbon Dioxide 18 L (22-30) mmol/L BUN 175 H* (9-20) mg/dL Creatinine 18.65 H* (0.66-1.25) mg/dL Glucose 120 H (74-99) mg/dL POC Glucose (mg/dL) (75-99) mg/dL Phosphorus (2.5-4.5) mg/dL Magnesium (1.6-2.3) mg/dL AST 108 H (17-59) U/L Alkaline Phosphatase 33 L (38-126) U/L Creatine Kinase (55-170) U/L Total Protein 5.9 L (6.3-8.2) g/dL Albumin 3.3 L (3.5-5.0) g/dL TSH (0.465-4.680) mIU/L 10/15/20 10/15/20 10/15/20 Range/Units 16:01 16:49 17:03 RBC (4.30-5.90) m/uL Hgb (13.0-17.5) gm/dL Hct (39.0-53.0) % RDW (11.5-15.5) % Plt Count (150-450) k/uL Neutrophils # (1.3-7.7) k/uL Lymphocytes # (1.0-4.8) k/uL PT (9.0-12.0) sec INR (<1.2) APTT (22.0-30.0) sec ABG pCO2 32 L (35-45) mmHg ABG pO2 143 H (83-108) mmHg ABG O2 Saturation 98.5 H (94-97) % Potassium (3.5-5.1) mmol/L Carbon Dioxide (22-30) mmol/L BUN (9-20) mg/dL Creatinine (0.66-1.25) mg/dL Glucose (74-99) mg/dL POC Glucose (mg/dL) 117 H 178 H (75-99) mg/dL Phosphorus (2.5-4.5) mg/dL Magnesium (1.6-2.3) mg/dL AST (17-59) U/L Alkaline Phosphatase (38-126) U/L Creatine Kinase (55-170) U/L Total Protein (6.3-8.2) g/dL Albumin (3.5-5.0) g/dL TSH (0.465-4.680) mIU/L 10/15/20 10/16/20 10/16/20 Range/Units 17:10 10:04 10:04 RBC 3.14 L (4.30-5.90) m/uL Hgb 10.2 L (13.0-17.5) gm/dL Hct 30.8 L (39.0-53.0) % RDW (11.5-15.5) % Plt Count 135 L (150-450) k/uL Neutrophils # (1.3-7.7) k/uL Lymphocytes # (1.0-4.8) k/uL PT 13.6 H (9.0-12.0) sec INR 1.3 H (<1.2) APTT 35.0 H (22.0-30.0) sec ABG pCO2 (35-45) mmHg ABG pO2 (83-108) mmHg ABG O2 Saturation (94-97) % Potassium 5.6 H (3.5-5.1) mmol/L Carbon Dioxide 19 L (22-30) mmol/L BUN 181 H* (9-20) mg/dL Creatinine 18.86 H* (0.66-1.25) mg/dL Glucose 161 H (74-99) mg/dL POC Glucose (mg/dL) (75-99) mg/dL Phosphorus 9.2 H* (2.5-4.5) mg/dL Magnesium 3.1 H (1.6-2.3) mg/dL AST (17-59) U/L Alkaline Phosphatase (38-126) U/L Creatine Kinase (55-170) U/L Total Protein (6.3-8.2) g/dL Albumin (3.5-5.0) g/dL TSH (0.465-4.680) mIU/L 10/16/20 Range/Units 10:04 RBC (4.30-5.90) m/uL Hgb (13.0-17.5) gm/dL Hct (39.0-53.0) % RDW (11.5-15.5) % Plt Count (150-450) k/uL Neutrophils # (1.3-7.7) k/uL Lymphocytes # (1.0-4.8) k/uL PT (9.0-12.0) sec INR (<1.2) APTT (22.0-30.0) sec ABG pCO2 (35-45) mmHg ABG pO2 (83-108) mmHg ABG O2 Saturation (94-97) % Potassium 5.4 H (3.5-5.1) mmol/L Carbon Dioxide (22-30) mmol/L BUN 119 H* (9-20) mg/dL Creatinine 12.68 H* (0.66-1.25) mg/dL Glucose 110 H (74-99) mg/dL POC Glucose (mg/dL) (75-99) mg/dL Phosphorus (2.5-4.5) mg/dL Magnesium (1.6-2.3) mg/dL AST 98 H (17-59) U/L Alkaline Phosphatase 27 L (38-126) U/L Creatine Kinase 4425 H* (55-170) U/L Total Protein 5.1 L (6.3-8.2) g/dL Albumin 2.6 L (3.5-5.0) g/dL TSH 6.410 H (0.465-4.680) mIU/L Assessment and Plan Assessment: 1. Altered mental status, secondary to acute metabolic encephalopathy with severe uremia - known history of end-stage renal disease, but no hemodialysis for the last 1 week. - Nephrology is on board and patient will undergo hemodialysis today and again tomorrow 2. Papilledema involving the right optic nerve, possible CVA. Further workup is pending. -- Possible CVA with encephalopathy profound weakness and myoclonic jerks as well as anisocoria/unequal pupillary sizes; patient has been placed on Decadron 4 mg IV every 6 hours her papilledema - Stat neurology consultation is obtained; ophthalmology is consulted - CT head and CTA head and neck is unremarkable; patient is to receive an MRI of the brain; EEG is ordered and pending 3. Acute rhabdomyolysis with significantly elevated CPK mostly because the patient has been inactive, and he may have fallen at home. - Patient will be treated with IV fluid hydration; hemodialysis per nephrology recommendations; we will monitor strict VIOLA's, daily weights, renal function and electrolytes 4. Acute bilateral pneumonia with significant consolidation in the right upper lobe, strongly suspect aspiration pneumonia. --Possible sepsis with pneumonia being the primary source. - Drying Room Attendant service recommending IV Zosyn and vancomycin for presumption of aspiration pneumonia and sepsis - Further recommendations once blood cultures and sputum cultures are resulted 5. End-stage renal disease, on hemodialysis. --Acute metabolic acidosis secondary to chronic kidney disease. --Hyperkalemia secondary to chronic kidney disease and missed hemodialysis. 6. Hypertension; amlodipine 10 mg daily, Coreg 25 mg twice a day, Cardura 2 mg twice a day and clonidine 0.3 mg every 8 hours DVT prophylaxis; SCDs CODE STATUS; full code
--- NOTE | 2020-10-16 17:26 | CONS ---
CONSULTATION DATE OF SERVICE: 10/16/2020. HISTORY: This is a 64-year-old white male with a history of chronic renal failure, who was found unresponsive, admitted to the hospital with severe mental status changes. The patient was diagnosed with right-sided pneumonia with questionable involvement of the left side as well. Of note, that the patient's pupil is dilated in his right eye. The patient is currently resting in bed and is not responsive to commands. PHYSICAL EXAM: External examination revealed significant ptosis bilaterally. It does not appear there is significant asymmetry in his ptosis at this time. Visual acuity: I was not able to obtain the vision due to the patient's current mental status. The pupils were asymmetric with the right side measuring 6 mm and fixed. There was no significant responsiveness to light stimulus. The left side was 3 mm and responsive to light. I could not appreciate any significant afferent pupillary defect at this at this time. Extraocular movements were difficult to determine. However, they appeared full during my examination. The patient was able to assume primary gaze when both eyelids were lifted up and the proper alignment appeared to be evident. In attempt to have the patient move his eyes to the left gaze position, the right eye was able to cross the midline. However, he did appear to favor his right side when looking at objects. On penlight exam, the lids were normal in their contour. The conjunctivae was quiet. Both corneas were clear. The anterior chambers were well formed. The iris was normal and the lenses appeared clear. On fundus exam, the patient has normal-appearing maculae vessels and discs. IMPRESSION: Anisocoria, due to this patient's the patient's mental condition, I cannot rule out the possibility of a 3rd nerve palsy on the right side. Typically, these result in the deviation of the affected eye to the lateral gaze in that eye. However, symptoms are often difficult to determine in an unresponsive patient. With the pupil enlargement of the right side, consideration of a compressive lesion must be considered. This includes aneurysm of the [place] and it is my understanding that the CTA was negative. A CT of the head likewise was negative. I would still recommend an MRI to determine the presence of any compressive lesion of the 3rd nerve on the right side. An MRI is currently pending. However, contrast cannot be used due to the patient's current renal status. I will continue to follow this patient and feel free to consult me should a change in his mental status occur. Thank you very much for the consultation. MMDANISH / IJN: [id number] /
--- NOTE | 2020-10-16 17:48 | ECHOF ---
Referral Reason:rule out stroke MEASUREMENTS -------- HEIGHT: 172.7 cm WEIGHT: 63.0 kg BP: 167/97 RVIDd: 3.8 cm (< 3.3) IVSd: 1.7 cm (0.6 - 1.1) LVIDd: 5.6 cm (3.9 - 5.3) LVPWd: 1.5 cm (0.6 - 1.1) IVSs: 2.2 cm LVIDs: 3.7 cm LVPWs: 2.5 cm LA Diam: 5.4 cm (2.7 - 3.8) Ao Diam: 3.1 cm (2.0 - 3.7) AV Cusp: 1.5 cm (1.5 - 2.6) LA Diam: 4.6 cm (2.7 - 3.8) MV EXCURSION: 19.910 mm (> 18.000) MV EF SLOPE: 103 mm/s (70 - 150) EPSS: 0.9 cm MV E Fran: 0.74 m/s MV DecT: 170 ms MV A Fran: 1.24 m/s MV E/A Ratio: 0.59 AV maxP.01 mmHg AV meanP.71 mmHg RAP: 5.00 mmHg RVSP: 50.94 mmHg FINDINGS -------- Sinus rhythm. This was a technically adequate study. The left ventricular size is normal. There is severe concentric left ventricular hypertrophy. Ove rall left ventricular systolic function is low-normal with, an EF between 50 - 55 %. The right ventricle is mild to moderately enlarged. The left atrium is markedly dilated. The right atrium is moderately enlarged. Interatrial and interventricular septum intact. There is mild aortic valve sclerosis. There is mild aortic regurgitation. There is mild aortic st enosis present. Peak/mean gradient across the Aortic Valve is 31.01mmHg / 16.71mmHg. The mitral valve leaflets are mild to moderately thickened. [id number] mitral regurgitatio n is present. Moderate tricuspid regurgitation present. There is moderate pulmonary hypertension. The right jaida tricular systolic pressure, as measured by Doppler, is 50.94mmHg. There is no pulmonic regurgitation present. The aortic root size is normal. Normal inferior vena cava with normal inspiratory collapse consistent with estimated right atrial pre ssure of 5 mmHg. There is a moderate, generalized pericardial effusion present. CONCLUSIONS -------- 1. There is severe concentric left ventricular hypertrophy. 2. Overall left ventricular systolic function is low-normal with, an EF between 50 - 55 %. 3. The right ventricle is mild to moderately enlarged. 4. The left atrium is markedly dilated. 5. The right atrium is moderately enlarged. 6. There is mild aortic valve sclerosis. 7. There is mild aortic regurgitation. 8. There is mild aortic stenosis present. 9. Peak/mean gradient across the Aortic Valve is 31.01mmHg / 16.71mmHg. 10. The mitral valve leaflets are mild to moderately thickened. 11. [id number] mitral regurgitation is present. 12. Moderate tricuspid regurgitation present. 13. There is moderate pulmonary hypertension. 14. There is a moderate, generalized pericardial effusion present. PRECAST WORKER: Madai Pérez RDCS
[2020-10-16 20:38] LABS: Hemoglobin A1C 4.9 % (4.0-6.0)
--- NOTE | 2020-10-16 21:06 | EEG ---
ELECTROENCEPHALOGRAM REPORT DATE OF SERVICE: 10/16/2020 CLINICAL HISTORY: This is a 64-year-old gentleman with altered mental status as well as entire body jerks/tremor. This video EEG is obtained to evaluate for seizure epileptiform activity. RELEVANT MEDICATION: 2 mg of Ativan and Vimpat. EEG TYPE: Routine 21 channel EEG performed with video using the 10/20 electrode placement system. DESCRIPTION: Wakefulness and drowsiness are obtained. During the awake state the background consists of low to moderate voltage of 6-7 hertz theta activity and sometimes intermixed with delta activity. There is no stage 2 sleep architecture seen. There is no focal slowing seen on the EEG. Interictal and ictal none. There is no EEG that correlate for seizure for patient's diffuse body tremor or jerks. ACTIVATION PROCEDURE: Photic stimulation did not evoke a posterior driving response. There is no abnormality during the photic stimulation. Hyperventilation is not performed. CLINICAL INTERPRETATION: This is an abnormal routine EEG. The background slowing is suggestive of mild to moderate encephalopathy likely due to toxic metabolic encephalopathy. There are no focal slowing, epileptiform discharges or seizure on the EEG. The patient's diffuse body jerk/tremor is without any EEG correlate for seizures. Clinical correlation is recommended. RECOMMENDATION: If patient continues to have altered mental status with body jerks/tremor, then consider repeating EEG. ERICKA / BROOKN: [id number] / ISABELA
[2020-10-16 21:45] LABS: Chol/HDL Ratio 9.89; LDL Cholesterol,Calculated 46.2 mg/dL (0.0-131.0); VLDL Calculation 33.8 mg/dL (5.00-40.00)
[2020-10-16] MEDS: LACOSAMIDE IV 50 MG in SODIUM CHLORIDE 0.9% 50 ML IVPB SCH (22:23)
--- NOTE | 2020-10-16 22:47 | CONS ---
CONSULTATION DATE OF SERVICE: 10/16/2020 REASON FOR CONSULTATION: Underlying infection. HISTORY OF PRESENT ILLNESS: The patient is a 64-year-old male with a past medical history significant for end-stage renal disease on dialysis through left arm AV fistula Monday, and Monday. Apparently, the patient has not been going for dialysis over the last one week and the police have been called multiple times for a well check on him. Yesterday afternoon the patient, on arrival of the forensic social worker, was noticed to be confused and running a fever and did not look good. EMS was called and the patient was subsequently brought to [facility] ER for further evaluation. On arrival to the ER, the patient had been running a fever of 103 degrees Fahrenheit. The patient was tachycardic and hypoxic requiring supplemental oxygen. The patient did have a normal white count though. Did have elevated BUN and creatinine as well as potassium. Liver enzymes were mildly elevated. The patient did have blood culture which is currently pending. The patient did have a chest x-ray which shows cardiomegaly, chronic parenchymal changes with right upper lobe and right middle lobe infiltrate concerning for pneumonia. The patient has been admitted to the ICU. He was started on vancomycin and Zosyn. Infectious Disease was consulted for further management of antibiotic therapy. Most of the information has been obtained from review of the chart and nursing staff as the patient is currently pleasantly confused, lethargic and was not able to provide any history. REVIEW OF SYSTEMS: Positive points have been mentioned in HPI. Rest of systems are negative. PAST MEDICAL HISTORY: End-stage disease on hemodialysis Monday, and Monday and history of hypertension. PAST SURGICAL HISTORY: Left arm fistula placement. SOCIAL HISTORY: No history of smoking or drug use. FAMILY HISTORY: Mother with history of dementia and hypertension. ALLERGIES: SULFA. MEDICATIONS: The patient is currently on Zosyn, vancomycin, Decadron, DuoNeb. Prior to that received Rocephin and Zithromax. PHYSICAL EXAMINATION: Blood pressure is 155/97, pulse of 105, temperature is 100, T-max is 103. He is 90% on 40% ( ). General description is a middle-aged male lying in bed in no distress. No tachypnea or accessory muscles of respiration use. HEENT: Examination shows pallor, no scleral icterus. Oral mucous membranes dry. Neck: Trachea central, no thyromegaly. Lungs: Unlabored breathing. Coarse breath sounds bilaterally, no wheeze. Heart S1, S2. Tachycardic. Abdomen soft, mildly distended, no guarding or rigidity. Extremities: No edema of the feet. No rash or mass palpable. Neurologically, the patient is lethargic. Orientation could not be determined. LABS: Hemoglobin is 10.1, white count 6.1, BUN of 119, creatinine is 2.68, potassium is 5.4, admission potassium was 6.8. AST slightly elevated. ALT was normal. CK is elevated. Sanchez PCR was not detected. Chest x-ray with right upper lobe dense consolidation. DIAGNOSTIC IMPRESSION AND PLAN: Patient admitted to the hospital with sepsis in this patient who did have a fever, tachycardia with right upper lobe pneumonia, concern for likely aspiration etiology and this patient did have mental status changes and has been missing his dialysis ( ) sensitivities of infection. PLAN: 1. Try to obtain a sputum for ( ) culture. 2. Continue with Zosyn 3.5 g q.8 hours along with vancomycin. 3. We will follow on his clinical condition and culture to further adjust medication if needed. Thank you for this consultation. Will follow this patient along with you. MMODL / IJN: [id number] /
[2020-10-17 00:04] LABS: Glucose,Whole Blood 102 mg/dL (75-99)
[2020-10-17] MEDS: SODIUM CHLORIDE 0.9% 1,000 ML IV SCH ×3 (06:30→18:29)
[2020-10-17] MEDS: DEXAMETHASONE SOD PHOSPHATE 4 MG/ML 1 ML VIAL IV SCH ×4 (06:30→23:20)
[2020-10-17 07:00] LABS: Glucose,Whole Blood 100 mg/dL (75-99)
[2020-10-17 07:28] LABS: Basophils % (A) 0 %; Eosinophils # (A) 0.1 k/uL (0-0.7); Eosinophils % (A) 1 %; HCT 32.2 % (39.0-53.0); HGB 10.3 gm/dL (13.0-17.5); Hypochromasia Moderate; Lymphocytes # (A) 0.2 k/uL (1.0-4.8); Lymphocytes % (A) 4 %; MCH 32.7 pg (25.0-35.0); MCV 102.1 fL (80.0-100.0); Macrocytosis Slight; Mean Platelet Volume 9.9; Monocytes # (A) 0.1 k/uL (0-1.0); Monocytes % (A) 2 %; Neutrophils % (A) 93 %; Platelet Count 136 k/uL (150-450); RBC 3.16 m/uL (4.30-5.90); RDW 14.8 % (11.5-15.5); WBC 5.4 k/uL (3.8-10.6)
[2020-10-17 07:36] LABS: Calcium 10.6 mg/dL (8.4-10.2); Potassium 5.5 mmol/L (3.5-5.1)
[2020-10-17] MEDS: IPRATROPIUM-ALBUTEROL 3 ML NEB INHALATION SCH ×4 (07:42→19:18)
[2020-10-17] MEDS ORDERED: VANCOMYCIN 1,250 MG in SODIUM CHLORIDE 0.9% 250 ML IVPB ONE (10:00)
[2020-10-17 10:09] LABS: INR 1.4 (<1.2); Prothrombin Time 14.5 sec (9.0-12.0)
[2020-10-17] MEDS: LACOSAMIDE IV 50 MG in SODIUM CHLORIDE 0.9% 50 ML IVPB SCH ×2 (10:56→20:27)
[2020-10-17] MEDS: PIPERACILLIN-TAZOBACTAM 3.375 GM in SODIUM CHLORIDE 0.9% 100 ML IVPB SCH ×2 (11:02→21:03)
--- NOTE | 2020-10-17 11:50 | XR ---
EXAMINATION TYPE: XR chest 1V portable DATE OF EXAM: 10/17/2020 COMPARISON: 10/16/2020 INDICATION: Right upper lobe pneumonia TECHNIQUE: Single frontal view of the chest is obtained. FINDINGS: The heart size is mildly prominent. The pulmonary vasculature is normal. There is a large consolidation right apex. Findings can be compatible with pneumonia. Follow-up to [facility] is recommended. Underlying neoplasm is not excluded. IMPRESSION: 1. Persistent right upper lobe consolidation can be compatible with pneumonia. Follow up exams are re commended.
--- NOTE | 2020-10-17 12:00 | PN ---
PROGRESS NOTE The patient is seen for followup for end-stage renal disease. He was admitted to the hospital with having missed dialysis for about a week. The patient is currently maintained on BiPAP. He is awake, but drowsy. Currently patient is seen on dialysis, doing well. EXAMINATION: Today blood pressure 127/78, heart rate 96 per minute. Patient is afebrile. Examination of the heart S1, S2. Examination of the lungs, bilateral breath sounds are heard. Abdomen is soft, nontender. Examination of lower extremities shows edema 1+ bilaterally. 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 He is currently maintained on BiPAP. LAB: Show hemoglobin 10.3, sodium 145, potassium 5.5, BUN 105, serum creatinine 12.28. ASSESSMENT: 1. End-stage renal disease, currently on hemodialysis, tolerating treatment well. 2. Volume overload. 3. Hyperkalemia associated with having missed dialysis prior to admission. 4. Mental status changes, possible cerebrovascular accident, status post MRI of the head which does not reveal any acute findings. 5. Gastrointestinal bleed. 6. Metabolic acidosis secondary to renal failure. 7. Possible pneumonia on chest x-ray. PLAN: Hemodialysis today. Will arrange for dialysis again on Monday. Increase UF as tolerated. MMODL / IJN: [id number] /
--- NOTE | 2020-10-17 12:51 | P.PN ---
Subjective Progress Note Date: 10/17/20 Principal diagnosis: Acute metabolic encephalopathy This is a 64-year-old white male with history of chronic renal failure, end- stage renal disease, patient is on hemodialysis normally Monday and Monday. Patient has always been very compliant with hemodialysis treatments and he always showed up to the dialysis unit for hemodialysis on a regular basis. However over the last week, patient has not been showing up for his hemodialysis, and a wellness check on the patient was done, and he was found use, short of breath, and experiencing episodes of myoclonic jerks, and extremely weak. Patient was brought into the ER, and he was found to have right upper lobe pneumonia possibly even a left lower lobe infiltrate, patient is also found to have profound mental status change with profound weakness, myoclonic jerking, anisocoria with right pupil much more dilated than the left pupil. Patient is also found to be extremely uremic and encephalopathic. Workup in the ER included CT of the brain which was nondiagnostic except for slight asymmetry of the optic nerve on the right. Nonspecific white matter changes were noted. His labs showed no evidence of leukocytosis. He was hyperkalemic with a potassium as high as 6.8 acidotic with bicarb of 18 uremic with a BUN of 175 and creatinine of 18.65. COVID-19 PCR was negative. ABG on BiPAP showed a pO2 of 143 pCO2 of 32 pH of 7.43. And this was on IPAP of 12 and EPAP of 6 and FiO2 of 40%. Angiography CT of the head and neck is pending. Patient was admitted to the ICU, and I was asked to see him on consultation. As soon as I evaluated the patient, recommended stat neurological consultation, also recommended changing his antibiotics to vancomycin and Zosyn. Cultures are pending. Patient was reevaluated today on 10/17/2020, remains in the ICU, remains on BiPAP with IPAP of 12 and EPAP of 6 FiO2 40%, remains on daily hemodialysis, he is receiving hemodialysis this morning. Continues to have significant uremia creatinine remains 12.28. Patient will be dialyzed today and the plan is to remove 3 L. Patient did not get a lumbar puncture mostly because of his elevated PTT. Remains on IV fluid at 0.9 normal saline 1 50 mL per hour. CPK is improving, but remains over 1999. CBC is relatively normal PTT is 42 potassium is 5.5 BUN 105 creatinine 12.28. CPK 2226. Patient remains on updrafts, he is also on anti-seizure therapy, Decadron, Zosyn empirically, chest x-ray continues to show right upper lobe pneumonia. Objective - Vital Signs Vital signs: Vital Signs Temp 99.1 F 10/17/20 06:00 Pulse 85 10/17/20 11:26 Resp 16 10/17/20 07:00 BP 127/78 10/17/20 07:00 Pulse Ox 97 10/17/20 07:00 Intake & Output 10/16/20 10/17/20 10/17/20 18:59 06:59 18:59 Intake Total 1300 2100 Output Total 1000 Balance 300 2100 Weight 65.4 kg Intake: IV 1200 1950 Sodium Chloride 0.9% 1, 1200 1950 000 ml @ 150 mls/hr IV . Q6H40M [facility] Rx#:[id number] Intake, IV Titration 100 150 Amount Lacosamide IV 50 mg In 50 50 Sodium Chloride 0.9% 50 ml @ 100 mls/hr IVPB BID [facility] Rx#:[id number] Piperacillin-Tazobactam 3 100 .375 gm In Sodium Chloride 0.9% 100 ml @ 25 mls/hr IVPB Q12HR [facility] Rx #:[id number] cefTRIAXone 2 gm In 50 Sodium Chloride 0.9% 50 ml @ 100 mls/hr IVPB ONCE ONE Rx#:[id number] Output: Hemodialysis 1000 Other: # Bowel Movements 1 - Exam Physical Exam: Revealed 64-year-old male frail looking, in no distress, remains on BiPAP. Head: Atraumatic, normocephalic. Patient is on BiPAP. HEENT:[Neck is supple.] [No neck masses.] [No thyromegaly.] [No JVD.] Chest: [Symmetrical chest expansion, diminished breath sound bilaterally crackles at the base. No rhonchi and no wheezes. Cardiac Exam: [Normal S1 and S2, no S3 gallop, no murmur.] Abdomen: [Soft, nontender, no megaly, no rebound, no guarding, normal bowel sounds.] Extremities: [No clubbing, no edema, no cyanosis.] [Left Arm AV fistula is noted.] Neurological Exam: Less encephalopathic today compared to yesterday.. He does comprehend and follows simple instructions. But extremely weak. Less myoclonic jerks noted today compared to yesterday.. Noted to have anisocoria with right pupil much larger than the left pupil. Profound weakness persists in both upper and lower extremities. - Labs CBC & Chem 7: 10/17/20 07:17 10/17/20 07:17 Labs: Abnormal Lab Results - Last 24 Hours (Table) 10/16/20 10/17/20 10/17/20 Range/Units 13:02 00:02 04:05 RBC (4.30-5.90) m/uL Hgb (13.0-17.5) gm/dL Hct (39.0-53.0) % MCV (80.0-100.0) fL Plt Count (150-450) k/uL Lymphocytes # (1.0-4.8) k/uL PT (9.0-12.0) sec INR (<1.2) APTT (22.0-30.0) sec Potassium (3.5-5.1) mmol/L Chloride (98-107) mmol/L Carbon Dioxide (22-30) mmol/L BUN (9-20) mg/dL Creatinine 11.86 H* (0.66-1.25) mg/dL Glucose (74-99) mg/dL POC Glucose (mg/dL) 102 H (75-99) mg/dL Calcium (8.4-10.2) mg/dL Magnesium 2.4 H (1.6-2.3) mg/dL Creatine Kinase 2226 H* (55-170) U/L Triglycerides 169.0 H (0.0-149.0) mg/dL HDL Cholesterol 9.0 L (40.0-60.0) mg/dL Vitamin B12 957.0 H (200.0-944.0) pg/mL 10/17/20 10/17/20 10/17/20 Range/Units 06:58 07:17 07:17 RBC 3.16 L (4.30-5.90) m/uL Hgb 10.3 L (13.0-17.5) gm/dL Hct 32.2 L (39.0-53.0) % MCV 102.1 H (80.0-100.0) fL Plt Count 136 L (150-450) k/uL Lymphocytes # 0.2 L (1.0-4.8) k/uL PT (9.0-12.0) sec INR (<1.2) APTT (22.0-30.0) sec Potassium 5.5 H (3.5-5.1) mmol/L Chloride 108 H (98-107) mmol/L Carbon Dioxide 20 L (22-30) mmol/L BUN 105 H* (9-20) mg/dL Creatinine 12.28 H* (0.66-1.25) mg/dL Glucose 107 H (74-99) mg/dL POC Glucose (mg/dL) 100 H (75-99) mg/dL Calcium 10.6 H (8.4-10.2) mg/dL Magnesium (1.6-2.3) mg/dL Creatine Kinase (55-170) U/L Triglycerides (0.0-149.0) mg/dL HDL Cholesterol (40.0-60.0) mg/dL Vitamin B12 (200.0-944.0) pg/mL 10/17/20 Range/Units 08:29 RBC (4.30-5.90) m/uL Hgb (13.0-17.5) gm/dL Hct (39.0-53.0) % MCV (80.0-100.0) fL Plt Count (150-450) k/uL Lymphocytes # (1.0-4.8) k/uL PT 14.5 H (9.0-12.0) sec INR 1.4 H (<1.2) APTT 42.0 H (22.0-30.0) sec Potassium (3.5-5.1) mmol/L Chloride (98-107) mmol/L Carbon Dioxide (22-30) mmol/L BUN (9-20) mg/dL Creatinine (0.66-1.25) mg/dL Glucose (74-99) mg/dL POC Glucose (mg/dL) (75-99) mg/dL Calcium (8.4-10.2) mg/dL Magnesium (1.6-2.3) mg/dL Creatine Kinase (55-170) U/L Triglycerides (0.0-149.0) mg/dL HDL Cholesterol (40.0-60.0) mg/dL Vitamin B12 (200.0-944.0) pg/mL Microbiology - Last 24 Hours (Table) 10/15/20 14:21 Blood Culture - Preliminary Blood No Growth after 24 hours 10/15/20 14:05 Blood Culture - Preliminary Blood No Growth after 24 hours Assessment and Plan Assessment: Impression: Altered mental status, secondary to acute metabolic encephalopathy with severe uremia, known history of end-stage renal disease, but no hemodialysis for the last 1 week. Possible CVA with encephalopathy profound weakness and myoclonic jerks as well a s anisocoria/unequal pupillary sizes Acute rhabdomyolysis with significantly elevated CPK mostly because the patient has been inactive, and he may have fallen at home. Acute bilateral pneumonia with significant consolidation in the right upper lobe, strongly suspect aspiration pneumonia. Possible sepsis with pneumonia being the primary source. End-stage renal disease, on hemodialysis. History of hypertension Acute metabolic acidosis secondary to chronic kidney disease. Hyperkalemia secondary to chronic kidney disease and missed hemodialysis. Recommendation: Continue to monitor in the ICU. Continue BiPAP. Continue to follow up with other consultants including neurology and infectious disease as well as nephrology and ophthalmology. Continue Decadron. Continue hemodialysis. Continue IV fluids for his rhabdomyolysis. Continue GI and DVT prophylaxis. Continue Zosyn for presumptive aspiration pneumonia. Address nutritional support possibly enteral feeding once the BiPAP was discontinued. Overall prognosis remains extremely poor and guarded. We'll continue to follow. Time with Patient: Less than 30
[2020-10-17 14:03] LABS: Glucose,Whole Blood 119 mg/dL (75-99)
--- NOTE | 2020-10-17 15:45 | PN ---
PROGRESS NOTE DATE OF SERVICE: 10/17/2020 REASON FOR FOLLOWUP: Pneumonia, likely aspiration etiology. INTERVAL HISTORY: The patient is afebrile. The patient is more awake and alert. The patient denies having any headache. No chest pain, abdominal pain or diarrhea. PHYSICAL EXAMINATION: Blood pressure 149/91 with a pulse of 82, temperature is 97.7. He is 98% on 3 L nasal cannula. General description is a middle-aged male lying in bed in no distress. Respiratory system: Unlabored breathing, ( ), no wheeze. Heart S1, S2. Regular rate and rhythm. Abdomen soft, no tenderness. LABS: Hemoglobin is 10.1, white count of 5.4, BUN of 105, creatinine is 12.28. DIAGNOSTIC IMPRESSION AND PLAN: Patient in the hospital with mental status changes, fever, sepsis, concern for pneumonia, possible aspiration etiology. Patient is covered with Zosyn, to continue. Will monitor clinical course closely. Continue supportive care. MMODL / IJN: [id number] /
--- NOTE | 2020-10-17 16:08 | P.PN ---
Subjective Progress Note Date: 10/17/20 Principal diagnosis: Acute metabolic encephalopathy Possible CVA with encephalopathy Acute rhabdomyolysis Acute bilateral pneumonia/ sepsis End-stage renal disease/HD. 64-year-old male presenting to emergency department by ambulance for dyspnea. Patient reportedly has been missing his dialysis and police have been called several times for well check. Patient has refused to go for dialysis. Patient was found today to be altered during will check. Patient is a poor historian. Patient does admit to being short of breath. EMS was concerned for possible fever. Initial vital signs: Blood pressure of 145/83, heart rate of 87, respiratory of 22, temperature of 103.3 Fahrenheit rectal and pulse ox of 99% room air. He had a repeated the temperature of 101.2. White blood cell is 8.9 and a repeat is 6 0.1 thousand which is considered within normal limits. He had the slight neutrophilic of 8.3. Chemistry panel is a sodium of 139 considered within normal limits, glucose of 120 which is slightly elevated but unremarkable, calcium initial one was 9.8 which is considered within normal limits. His initial potassium is 6.8 which is a significantly elevated. His creatinine on presentation to 18.6 which is above his baseline and he missed dialysis for a week. As well as the BUN is 175 on presentation the which is also elevated. AST of 108 which is slightly elevated but the ALT is 36 which is considered within normal limits. Phosphorus is 9.2 which is elevated and magnesium 3.1 which is also elevated. His potassium is trending down and the last one is 5.6. CT of the head is reported as degenerative and nonspecific white matter changes most typical of remote ischemic noted nodular prominence of basilar tip could be associated with a small aneurysm short segment follow-up [facility] [place] [facility] [place] recommended. Chest x-ray was reported as cardiomegaly and chronic parenchymal changes with the right upper long and medial right mid to lower lung mass likely consolidation. Correlate for multi-lobe pneumonia. Follow-up studies after treatment advised to exclude underlying mass. Repeat chest x-ray on 10/16/2020 is reported as large right upper lobe consolidation can be compatible with pneumonia. Some improvement may be present. Continue to follow up to clearing is recommended that. Objective - Vital Signs Vital signs: Vital Signs Temp 99.1 F 10/17/20 06:00 Pulse 84 10/17/20 07:59 Resp 16 10/17/20 07:00 BP 127/78 10/17/20 07:00 Pulse Ox 97 10/17/20 07:00 Intake & Output 10/16/20 10/17/20 10/17/20 18:59 06:59 18:59 Intake Total 1300 2100 Output Total 1000 Balance 300 2100 Weight 65.4 kg Intake: IV 1200 1950 Sodium Chloride 0.9% 1, 1200 1950 000 ml @ 150 mls/hr IV . Q6H40M [facility] Rx#:[id number] Intake, IV Titration 100 150 Amount Lacosamide IV 50 mg In 50 50 Sodium Chloride 0.9% 50 ml @ 100 mls/hr IVPB BID [facility] Rx#:[id number] Piperacillin-Tazobactam 3 100 .375 gm In Sodium Chloride 0.9% 100 ml @ 25 mls/hr IVPB Q12HR [facility] Rx #:[id number] cefTRIAXone 2 gm In 50 Sodium Chloride 0.9% 50 ml @ 100 mls/hr IVPB ONCE ONE Rx#:[id number] Output: Hemodialysis 1000 Other: # Bowel Movements 1 - Exam - Constitutional General appearance: Present: average body habitus, cooperative, no acute distress - EENT Eyes: Present: anicteric sclerae, EOMI, PERRLA, normal appearance ENT: Present: hearing grossly normal, normal oropharynx Ears: bilateral: normal - Neck Neck: Present: normal ROM. Absent: lymphadenopathy, rigidity, thyromegaly Carotids: negative: bruit present Thyroid: bilateral: normal size, negative: enlarged, nodule - Respiratory Respiratory: bilateral: CTA, negative: rales, rhonchi, wheezing - Cardiovascular Rhythm: regular Heart sounds: normal: S1, S2 Abnormal Heart Sounds: Absent: systolic murmur, diastolic murmur - Gastrointestinal General gastrointestinal: Present: normal bowel sounds, soft. Absent: diste nded, organomegaly, tenderness - Genitourinary Genitourinary Comment(s): deferred - Integumentary Integumentary: Present: normal turgor. Absent: jaundiced, rash, ulcer - Neurologic Neurologic: Present: CNII-XII intact. Absent: focal deficits - Musculoskeletal Musculoskeletal: Present: gait normal, strength equal bilaterally - Psychiatric Psychiatric: Present: A&O x's 3, appropriate affect, intact judgment & insight - Labs CBC & Chem 7: 10/17/20 07:17 10/17/20 07:17 Labs: Abnormal Lab Results - Last 24 Hours (Table) 10/16/20 10/16/20 10/16/20 Range/Units 10:04 10:04 13:02 RBC (4.30-5.90) m/uL Hgb (13.0-17.5) gm/dL Hct (39.0-53.0) % MCV (80.0-100.0) fL Plt Count (150-450) k/uL Lymphocytes # (1.0-4.8) k/uL PT 13.6 H (9.0-12.0) sec INR 1.3 H (<1.2) APTT 35.0 H (22.0-30.0) sec Potassium 5.4 H (3.5-5.1) mmol/L Chloride (98-107) mmol/L Carbon Dioxide (22-30) mmol/L BUN 119 H* (9-20) mg/dL Creatinine 12.68 H* (0.66-1.25) mg/dL Glucose 110 H (74-99) mg/dL POC Glucose (mg/dL) (75-99) mg/dL Calcium (8.4-10.2) mg/dL Magnesium 2.4 H (1.6-2.3) mg/dL AST 98 H (17-59) U/L Alkaline Phosphatase 27 L (38-126) U/L Creatine Kinase 4425 H* (55-170) U/L Total Protein 5.1 L (6.3-8.2) g/dL Albumin 2.6 L (3.5-5.0) g/dL Triglycerides 169.0 H (0.0-149.0) mg/dL HDL Cholesterol 9.0 L (40.0-60.0) mg/dL Vitamin B12 957.0 H (200.0-944.0) pg/mL TSH 6.410 H (0.465-4.680) mIU/L Free T4 0.73 L (0.78-2.19) ng/dL 10/17/20 10/17/20 10/17/20 Range/Units 00:02 04:05 06:58 RBC (4.30-5.90) m/uL Hgb (13.0-17.5) gm/dL Hct (39.0-53.0) % MCV (80.0-100.0) fL Plt Count (150-450) k/uL Lymphocytes # (1.0-4.8) k/uL PT (9.0-12.0) sec INR (<1.2) APTT (22.0-30.0) sec Potassium (3.5-5.1) mmol/L Chloride (98-107) mmol/L Carbon Dioxide (22-30) mmol/L BUN (9-20) mg/dL Creatinine 11.86 H* (0.66-1.25) mg/dL Glucose (74-99) mg/dL POC Glucose (mg/dL) 102 H 100 H (75-99) mg/dL Calcium (8.4-10.2) mg/dL Magnesium (1.6-2.3) mg/dL AST (17-59) U/L Alkaline Phosphatase (38-126) U/L Creatine Kinase 2226 H* (55-170) U/L Total Protein (6.3-8.2) g/dL Albumin (3.5-5.0) g/dL Triglycerides (0.0-149.0) mg/dL HDL Cholesterol (40.0-60.0) mg/dL Vitamin B12 (200.0-944.0) pg/mL TSH (0.465-4.680) mIU/L Free T4 (0.78-2.19) ng/dL 10/17/20 10/17/20 10/17/20 Range/Units 07:17 07:17 08:29 RBC 3.16 L (4.30-5.90) m/uL Hgb 10.3 L (13.0-17.5) gm/dL Hct 32.2 L (39.0-53.0) % MCV 102.1 H (80.0-100.0) fL Plt Count 136 L (150-450) k/uL Lymphocytes # 0.2 L (1.0-4.8) k/uL PT 14.5 H (9.0-12.0) sec INR 1.4 H (<1.2) APTT 42.0 H (22.0-30.0) sec Potassium 5.5 H (3.5-5.1) mmol/L Chloride 108 H (98-107) mmol/L Carbon Dioxide 20 L (22-30) mmol/L BUN 105 H* (9-20) mg/dL Creatinine 12.28 H* (0.66-1.25) mg/dL Glucose 107 H (74-99) mg/dL POC Glucose (mg/dL) (75-99) mg/dL Calcium 10.6 H (8.4-10.2) mg/dL Magnesium (1.6-2.3) mg/dL AST (17-59) U/L Alkaline Phosphatase (38-126) U/L Creatine Kinase (55-170) U/L Total Protein (6.3-8.2) g/dL Albumin (3.5-5.0) g/dL Triglycerides (0.0-149.0) mg/dL HDL Cholesterol (40.0-60.0) mg/dL Vitamin B12 (200.0-944.0) pg/mL TSH (0.465-4.680) mIU/L Free T4 (0.78-2.19) ng/dL Microbiology - Last 24 Hours (Table) 10/15/20 14:21 Blood Culture - Preliminary Blood No Growth after 24 hours 10/15/20 14:05 Blood Culture - Preliminary Blood No Growth after 24 hours Assessment and Plan Assessment: 1. Altered mental status, secondary to acute metabolic encephalopathy with severe uremia - known history of end-stage renal disease, but no hemodialysis for the last 1 week. - Nephrology is on board and patient will undergo hemodialysis today and again t omorrow 2. Papilledema involving the right optic nerve, possible CVA. Further workup is pending. -- Possible CVA with encephalopathy profound weakness and myoclonic jerks as well as anisocoria/unequal pupillary sizes; patient has been placed on Decadron 4 mg IV every 6 hours her papilledema - Stat neurology consultation is obtained; ophthalmology is consulted - CT head and CTA head and neck is unremarkable; patient is to receive an MRI of the brain; EEG is ordered and pending 3. Acute rhabdomyolysis with significantly elevated CPK mostly because the patient has been inactive, and he may have fallen at home. - Patient will be treated with IV fluid hydration; hemodialysis per nephrology recommendations; we will monitor strict VIOLA's, daily weights, renal function and electrolytes 4. Acute bilateral pneumonia with significant consolidation in the right upper lobe, strongly suspect aspiration pneumonia. --Possible sepsis with pneumonia being the primary source. - Tutoring Assistant service recommending IV Zosyn and vancomycin for presumption of aspiration pneumonia and sepsis - Further recommendations once blood cultures and sputum cultures are resulted 5. End-stage renal disease, on hemodialysis. --Acute metabolic acidosis secondary to chronic kidney disease. --Hyperkalemia secondary to chronic kidney disease and missed hemodialysis. 6. Hypertension; amlodipine 10 mg daily, Coreg 25 mg twice a day, Cardura 2 mg twice a day and clonidine 0.3 mg every 8 hours DVT prophylaxis; SCDs CODE STATUS; full code
[2020-10-17] MEDS ORDERED: hydrALAZINE HCL 20 MG/ML 1 ML VIAL IVP PRN (18:15)
[2020-10-17 19:01] LABS: Glucose,Whole Blood 123 mg/dL (75-99)
[2020-10-17 22:58] LABS: Glucose,Whole Blood 112 mg/dL (75-99)
[2020-10-18] MEDS: DEXAMETHASONE SOD PHOSPHATE 4 MG/ML 1 ML VIAL IV SCH ×2 (05:59→22:08)
[2020-10-18] MEDS: SODIUM CHLORIDE 0.9% 1,000 ML IV SCH ×4 (06:00→17:39)
[2020-10-18 06:04] LABS: Glucose,Whole Blood 125 mg/dL (75-99)
[2020-10-18 06:23] LABS: HCT 32.5 % (39.0-53.0); HGB 10.2 gm/dL (13.0-17.5); Hypochromasia Marked; MCH 32.1 pg (25.0-35.0); MCHC 31.2 g/dL (31.0-37.0); Macrocytosis Slight; Mean Platelet Volume 10.1; Platelet Count 158 k/uL (150-450); RBC 3.16 m/uL (4.30-5.90); RDW 14.9 % (11.5-15.5)
[2020-10-18 07:09] LABS: Potassium 5.1 mmol/L (3.5-5.1)
[2020-10-18] MEDS: IPRATROPIUM-ALBUTEROL 3 ML NEB INHALATION SCH ×4 (07:36→19:27)
[2020-10-18] MEDS ORDERED: DEXAMETHASONE SOD PHOSPHATE 4 MG/ML 1 ML VIAL IV SCH (09:00)
[2020-10-18] MEDS: DOXAZOSIN 2 MG TAB PO SCH ×2 (10:25→22:06)
[2020-10-18] MEDS: amLODIPine 10 MG TAB PO SCH (10:26)
[2020-10-18] MEDS: carvediloL 12.5 MG TAB PO SCH ×2 (10:26→17:39)
[2020-10-18] MEDS: PIPERACILLIN-TAZOBACTAM 3.375 GM in SODIUM CHLORIDE 0.9% 100 ML IVPB SCH ×2 (10:26→22:08)
[2020-10-18] MEDS: cloNIDine HCL 0.1 MG TAB PO SCH ×3 (10:26→22:03)
[2020-10-18] MEDS: LACOSAMIDE IV 50 MG in SODIUM CHLORIDE 0.9% 50 ML IVPB SCH ×2 (10:30→22:09)
--- NOTE | 2020-10-18 10:35 | P.PN ---
Subjective Progress Note Date: 10/18/20 Principal diagnosis: Acute metabolic encephalopathy This is a 64-year-old white male with history of chronic renal failure, end- stage renal disease, patient is on hemodialysis normally Monday and Monday. Patient has always been very compliant with hemodialysis treatments and he always showed up to the dialysis unit for hemodialysis on a regular basis. However over the last week, patient has not been showing up for his hemodialysis, and a wellness check on the patient was done, and he was found use, short of breath, and experiencing episodes of myoclonic jerks, and extremely weak. Patient was brought into the ER, and he was found to have right upper lobe pneumonia possibly even a left lower lobe infiltrate, patient is also found to have profound mental status change with profound weakness, myoclonic jerking, anisocoria with right pupil much more dilated than the left pupil. Patient is also found to be extremely uremic and encephalopathic. Workup in the ER included CT of the brain which was nondiagnostic except for slight asymmetry of the optic nerve on the right. Nonspecific white matter changes were noted. His labs showed no evidence of leukocytosis. He was hyperkalemic with a potassium as high as 6.8 acidotic with bicarb of 18 uremic with a BUN of 175 and creatinine of 18.65. COVID-19 PCR was negative. ABG on BiPAP showed a pO2 of 143 pCO2 of 32 pH of 7.43. And this was on IPAP of 12 and EPAP of 6 and FiO2 of 40%. Angiography CT of the head and neck is pending. Patient was admitted to the ICU, and I was asked to see him on consultation. As soon as I evaluated the patient, recommended stat neurological consultation, also recommended changing his antibiotics to vancomycin and Zosyn. Cultures are pending. Patient was reevaluated today on 10/17/2020, remains in the ICU, remains on BiPAP with IPAP of 12 and EPAP of 6 FiO2 40%, remains on daily hemodialysis, he is receiving hemodialysis this morning. Continues to have significant uremia creatinine remains 12.28. Patient will be dialyzed today and the plan is to remove 3 L. Patient did not get a lumbar puncture mostly because of his elevated PTT. Remains on IV fluid at 0.9 normal saline 1 50 mL per hour. CPK is improving, but remains over 1999. CBC is relatively normal PTT is 42 potassium is 5.5 BUN 105 creatinine 12.28. CPK 2226. Patient remains on updrafts, he is also on anti-seizure therapy, Decadron, Zosyn empirically, chest x-ray continues to show right upper lobe pneumonia. On 10/18/2020 patient seen in follow-up in the intensive care unit, he is more awake on today's exam, however still confused, but not agitated, less shaky, he is breathing comfortably, he is currently on room air with a pulse ox of 95%, no evidence of any respiratory distress, he is on IV fluids 0.9 at 150 ML per hour, no other drips. Today's chest x-ray has been reviewed showing persistent right upper lobe consolidation. Current antibiotic coverage is with Zosyn and van comycin. His blood cultures have been negative, today's labs have been reviewed. His white count is 6.0, hemoglobin is 10.2, sodium is 144, potassium is 5.1, chloride is 108, CO2 is 18, B1 is 91, creatinine is 9.5. Patient had hemodialysis treatment yesterday would removal of 1.5 L of fluid, his total CK is improving on today's labs, and is down to 1125. Patient was also tested for COVID-19 was found to be negative, his vital signs have been stable, his last lactic acid from couple days ago was down to 1.7. At no fever or chills in the last 24 hours. Pupils are a lot more reactive today, his right pupil is improved in size, and is 3 mm, his left pupil is 2 mm. And also remains on Deca dron milligrams every 6 hours for papilledema, patient was seen by ophthalmology consultation was noted. Patient has been nothing by mouth, and he states he is hungry and would like to eat. His abdomen is soft, no tenderness tenderness, no nausea vomiting or diarrhea. Blood pressures are running a little higher, with the systolic in the 150s and 160s and diastolic in the 90s and 100s. We can r estart some of his home medications including Coreg, Norvasc, Cardura. Objective - Vital Signs Vital signs: Vital Signs Temp 98 F 10/18/20 04:00 Pulse 86 10/18/20 07:47 Resp 13 10/18/20 07:00 BP 150/96 10/18/20 07:00 Pulse Ox 94 L 10/18/20 07:36 Intake & Output 10/17/20 10/18/20 10/18/20 18:59 06:59 18:59 Intake Total 2200 1800 150 Output Total 0 1800 0 Balance 2200 0 150 Weight 63.8 kg Intake: IV 2200 1800 150 Lacosamide IV 50 mg In 50 50 Sodium Chloride 0.9% 50 ml @ 100 mls/hr IVPB BID [facility] Rx#:[id number] Piperacillin-Tazobactam 3 100 100 .375 gm In Sodium Chloride 0.9% 100 ml @ 25 mls/hr IVPB Q12HR [facility] Rx #:[id number] Sodium Chloride 0.9% 1, 1800 1650 150 000 ml @ 150 mls/hr IV . Q6H40M [facility] Rx#:[id number] Vancomycin 1,250 mg In 250 Sodium Chloride 0.9% 250 ml @ 125 mls/hr IVPB ONCE ONE Rx#:[id number] Output: Urine 0 0 0 Hemodialysis 1800 - Exam GENERAL EXAM: Lethargic, but readily arousable to verbal stimuli, 64-year-old white male, resting comfortably in bed, oriented 2, slightly confused, but not agitated, on room air with a pulse ox of 95% comfortable in no apparent distress. HEAD: Normocephalic/atraumatic. EYES: Normal reaction of pupils, equal size. Conjunctiva pink, sclera white. NOSE: Clear with pink turbinates. THROAT: No erythema or exudates. NECK: No masses, no JVD, no thyroid enlargement, no adenopathy. CHEST: No chest wall deformity. Symmetrical expansion. LUNGS: Equal air entry with no crackles, wheeze, rhonchi or dullness. CVS: Regular rate and rhythm, normal S1 and S2, no gallops, no murmurs, no rubs ABDOMEN: Soft, nontender. No hepatosplenomegaly, normal bowel sounds, no guarding or rigidity. EXTREMITIES: No clubbing, no edema, no cyanosis, 2+ pulses and upper and lower extremities. MUSCULOSKELETAL: Muscle strength and tone normal. SPINE: No scoliosis or deformity SKIN: No rashes CENTRAL NERVOUS SYSTEM: Alert and oriented -2. No focal deficits, tone is norm al in all 4 extremities. PSYCHIATRIC: Alert and oriented -2. Appropriate affect. Intact judgment and insight. - Labs CBC & Chem 7: 10/18/20 05:30 10/18/20 05:31 Labs: Abnormal Lab Results - Last 24 Hours (Table) 10/17/20 10/17/20 10/17/20 Range/Units 14:01 18:59 22:55 RBC (4.30-5.90) m/uL Hgb (13.0-17.5) gm/dL Hct (39.0-53.0) % MCV (80.0-100.0) fL Chloride (98-107) mmol/L Carbon Dioxide (22-30) mmol/L BUN (9-20) mg/dL Creatinine (0.66-1.25) mg/dL Glucose (74-99) mg/dL POC Glucose (mg/dL) 119 H 123 H 112 H (75-99) mg/dL Calcium (8.4-10.2) mg/dL Creatine Kinase (55-170) U/L 10/18/20 10/18/20 10/18/20 Range/Units 05:30 05:31 06:02 RBC 3.16 L (4.30-5.90) m/uL Hgb 10.2 L (13.0-17.5) gm/dL Hct 32.5 L (39.0-53.0) % MCV 103.0 H (80.0-100.0) fL Chloride 108 H (98-107) mmol/L Carbon Dioxide 18 L (22-30) mmol/L BUN 91 H (9-20) mg/dL Creatinine 9.50 H* (0.66-1.25) mg/dL Glucose 134 H (74-99) mg/dL POC Glucose (mg/dL) 125 H (75-99) mg/dL Calcium 11.0 H (8.4-10.2) mg/dL Creatine Kinase (55-170) U/L 10/18/20 Range/Units 09:16 RBC (4.30-5.90) m/uL Hgb (13.0-17.5) gm/dL Hct (39.0-53.0) % MCV (80.0-100.0) fL Chloride (98-107) mmol/L Carbon Dioxide (22-30) mmol/L BUN (9-20) mg/dL Creatinine (0.66-1.25) mg/dL Glucose (74-99) mg/dL POC Glucose (mg/dL) (75-99) mg/dL Calcium (8.4-10.2) mg/dL Creatine Kinase 1125 H* (55-170) U/L Microbiology - Last 24 Hours (Table) 10/15/20 14:05 Blood Culture - Preliminary Blood No Growth after 48 hours 10/15/20 14:21 Blood Culture - Preliminary Blood No Growth after 48 hours Assessment and Plan Plan: Assessment: #1. Altered mental status, secondary to acute metabolic encephalopathy with severe uremia, with a known history of end-stage renal disease, had missed hemodialysis for one week prior to presentation #2. Possible CVA with encephalopathy, profound weakness in myoclonic jerks as well as in the subchorionic/unequal pupillary sizes. #3. Acute rhabdomyolysis with significantly elevated CPK, related to possible fall at home, and inability to ambulate #4. Acute bilateral pneumonia with significant consolidation in the right upper lobe, strongly suspect aspiration pneumonia, currently covered with Zosyn and vancomycin #5. Possible sepsis with pneumonia being the primary source #6. End-stage renal disease on hemodialysis #7. History of hypertension #8. Acute metabolic acidosis secondary to acute on chronic kidney disease #9. Hyperkalemia secondary to acute on chronic kidney disease, and missed hemodialysis, improved #10. Papilledema involving the right optic nerve, possible CVA, ophthalmology is following. She is currently on Decadron. CT had and CTA head and neck were unremarkable, MRI of the brain with no evidence of recent infarct #11. Myoclonus, EEG showed background slowing, suggestive of mild to moderate encephalopathy, no evidence of epileptiform discharges Plan: Continue current medical treatment Continue IV fluids at 75 Discontinue vancomycin, continue with Zosyn Cut back Decadron 4 mg IV twice daily We'll restart his medications including Norvasc, Coreg, Catapres and Cardura Obtain bedside swallow evaluation, start oral feedings with full liquid diet with supervision Follow-up chest x-ray tomorrow follow-up labs Continue close monitoring in the intensive care unit I performed a history & physical examination of the patient and discussed their management with my nurse practitioner, Acacia Guzman. I reviewed the nurse practitioner's note and agree with the documented findings and plan of care. Lung sounds are positive for clear breath sounds throughout the lung hurtado. The findings and the impression was discussed with the patient. I attest to the documentation by the nurse practitioner. Time with Patient: Greater than 30
[2020-10-18 11:04] LABS: Glucose,Whole Blood 136 mg/dL (75-99)
[2020-10-18] MEDS ORDERED: VANCOMYCIN 1,250 MG in SODIUM CHLORIDE 0.9% 250 ML IVPB ONE (12:00)
--- NOTE | 2020-10-18 12:01 | PN ---
PROGRESS NOTE Patient is seen for followup for end-stage renal disease. This morning he is comfortable, awake. He is not in any acute distress. The patient was dialyzed yesterday. PHYSICAL EXAMINATION: This morning blood pressure is 150/96, heart rate 72 per minute, he is afebrile . Examination of the heart S1, S2. Examination of the lungs, decreased breath sounds at the bases. Abdomen is soft, nontender. Examination lower extremities shows edema, mainly in the feet. [employer] exam grossly intact. The patient is sleepy but arousable. LAB: Show sodium 144, potassium 5.1, chloride 108, CO2 is 18, BUN 91, creatinine 9.5, hemoglobin 10.2 g/dL. CK 1125. ASSESSMENT: 1. End-stage renal disease, on hemodialysis on a Monday, , Monday schedule. We will arrange for dialysis again tomorrow as patient remains with significantly elevated creatinine and metabolic acidosis. 2. Mental status changes associated with uremia as well as underlying infection, most likely pneumonia. 3. Pneumonia, right upper lobe consolidation seen on chest x-ray, maintained on antibiotics. 4. Hyperkalemia, currently improved post dialysis. 5. Gastrointestinal bleed. No active bleeding noted at this time. 6. Metabolic acidosis secondary to renal failure, expect further improvement with dialysis tomorrow. We will adjust bicarb bath on the machine. PLAN: Hemodialysis in a.m. UF about 2 L as tolerated. MMODL / BROOKN: [id number] /
--- NOTE | 2020-10-18 15:46 | PN ---
PROGRESS NOTE DATE OF SERVICE: 10/18/2020. REASON FOR FOLLOWUP: Pneumonia. INTERVAL HISTORY: The patient is afebrile. The patient is breathing comfortably. He is more awake, alert. Was drinking juice without difficulty swallowing. No chest pain or shortness of breath. Occasional cough. No abdominal pain, no diarrhea. PHYSICAL EXAMINATION: Blood pressure 159/96, pulse of 72, temperature is 97.4. He is 91% on 2 L nasal cannula. General description is a middle-aged male lying in bed in no distress. Respiratory system: Unlabored breathing, decreased intensity of breath sounds. No wheeze. Heart: S1, S2. Regular rate and rhythm. Abdomen soft, no tenderness. LABS: Hemoglobin is 10.1, white count 6.0, BUN of 21, creatinine of 0.50. Blood culture has been negative. Sputum not collected. DIAGNOSTIC IMPRESSION AND PLAN: Patient admitted to the hospital with mental status changes in this patient who did have a cough, consolidation right upper lobe, possible aspiration pneumonia. To continue with Zosyn. Try to obtain a sputum ( ) and monitor clinical course closely. MMODL / IJN: [id number] /
--- NOTE | 2020-10-18 16:11 | P.PN ---
Subjective Progress Note Date: 10/18/20 The patient is seen in neurologic follow-up on October 18, 2020, via telemetry neurology. Chart is reviewed. MRI of the brain reveals no signs of compressive lesion. CT angiogram of the head and neck reveals no signs of aneurysm. Ophthalmology consultation is reviewed. They report bilateral ptosis. According to the family at the bedside, patient has been a little bit more alert today. The patient himself, denies diplopia. Objective - Vital Signs Vital signs: Vital Signs Temp 97.4 F L 10/18/20 08:00 Pulse 62 10/18/20 15:29 Resp 16 10/18/20 15:00 BP 126/78 10/18/20 15:00 Pulse Ox 93 L 10/18/20 15:00 Intake & Output 10/17/20 10/18/20 10/18/20 18:59 06:59 18:59 Intake Total 2200 1800 900 Output Total 0 1800 0 Balance 2200 0 900 Weight 63.8 kg Intake: IV 2200 1800 900 Lacosamide IV 50 mg In 50 50 Sodium Chloride 0.9% 50 ml @ 100 mls/hr IVPB BID [facility] Rx#:[id number] Piperacillin-Tazobactam 3 100 100 .375 gm In Sodium Chloride 0.9% 100 ml @ 25 mls/hr IVPB Q12HR [facility] Rx #:[id number] Sodium Chloride 0.9% 1, 1800 1650 900 000 ml @ 75 mls/hr IV . [id number] [facility] Rx#:[id number] Vancomycin 1,250 mg In 250 Sodium Chloride 0.9% 250 ml @ 125 mls/hr IVPB ONCE ONE Rx#:[id number] Output: Urine 0 0 0 Hemodialysis 1800 - Exam Gen.: The patient is reclining in the bed. He is well-nourished, well-developed and in no acute distress. HEENT: Head is atraumatic, normocephalic. Fundus not visualized. There is no scleral icterus. Neurological examination Mental status: The patient is awake. He is essentially nonverbal. He does deny diplopia. He does not follow commands. There are no spontaneous movements. Cranial nerves: Pupils are unequal with the right pupil being 3 mm and the left being 2 mm. Both are reactive. Eyes are midline. There is bilateral ptosis. There is no obvious facial asymmetry. Motor: There are no spontaneous movements - Labs CBC & Chem 7: 10/18/20 05:30 10/18/20 05:31 Labs: Abnormal Lab Results - Last 24 Hours (Table) 10/17/20 10/17/20 10/18/20 Range/Units 18:59 22:55 05:30 RBC 3.16 L (4.30-5.90) m/uL Hgb 10.2 L (13.0-17.5) gm/dL Hct 32.5 L (39.0-53.0) % MCV 103.0 H (80.0-100.0) fL Chloride (98-107) mmol/L Carbon Dioxide (22-30) mmol/L BUN (9-20) mg/dL Creatinine (0.66-1.25) mg/dL Glucose (74-99) mg/dL POC Glucose (mg/dL) 123 H 112 H (75-99) mg/dL Calcium (8.4-10.2) mg/dL Creatine Kinase (55-170) U/L 10/18/20 10/18/20 10/18/20 Range/Units 05:31 06:02 09:16 RBC (4.30-5.90) m/uL Hgb (13.0-17.5) gm/dL Hct (39.0-53.0) % MCV (80.0-100.0) fL Chloride 108 H (98-107) mmol/L Carbon Dioxide 18 L (22-30) mmol/L BUN 91 H (9-20) mg/dL Creatinine 9.50 H* (0.66-1.25) mg/dL Glucose 134 H (74-99) mg/dL POC Glucose (mg/dL) 125 H (75-99) mg/dL Calcium 11.0 H (8.4-10.2) mg/dL Creatine Kinase 1125 H* (55-170) U/L 10/18/20 Range/Units 11:03 RBC (4.30-5.90) m/uL Hgb (13.0-17.5) gm/dL Hct (39.0-53.0) % MCV (80.0-100.0) fL Chloride (98-107) mmol/L Carbon Dioxide (22-30) mmol/L BUN (9-20) mg/dL Creatinine (0.66-1.25) mg/dL Glucose (74-99) mg/dL POC Glucose (mg/dL) 136 H (75-99) mg/dL Calcium (8.4-10.2) mg/dL Creatine Kinase (55-170) U/L Microbiology - Last 24 Hours (Table) 10/15/20 14:05 Blood Culture - Preliminary Blood No Growth after 48 hours 10/15/20 14:21 Blood Culture - Preliminary Blood No Growth after 48 hours Assessment and Plan Assessment: 1. Toxic metabolic encephalopathy secondary to acute on chronic renal failure 2. Bilateral ptosis with anisocoria-consider myasthenia gravis Plan: 1. We will order acetylcholine receptor antibodies 2. Continue your supportive medical care and treatment Time with Patient: Less than 30 (Spent 25 minutes with patient via teleneurology)
--- NOTE | 2020-10-18 16:18 | P.PN ---
Subjective Progress Note Date: 10/18/20 Principal diagnosis: Acute metabolic encephalopathy Possible CVA with encephalopathy Acute rhabdomyolysis Acute bilateral pneumonia/ sepsis End-stage renal disease/HD. 64-year-old male presenting to emergency department by ambulance for dyspnea. Patient reportedly has been missing his dialysis and police have been called several times for well check. Patient has refused to go for dialysis. Patient was found today to be altered during will check. Patient is a poor historian. Patient does admit to being short of breath. EMS was concerned for possible fever. Initial vital signs: Blood pressure of 145/83, heart rate of 87, respiratory of 22, temperature of 103.3 Fahrenheit rectal and pulse ox of 99% room air. He had a repeated the temperature of 101.2. White blood cell is 8.9 and a repeat is 6 0.1 thousand which is considered within normal limits. He had the slight neutrophilic of 8.3. Chemistry panel is a sodium of 139 considered within normal limits, glucose of 120 which is slightly elevated but unremarkable, calcium initial one was 9.8 which is considered within normal limits. His initial potassium is 6.8 which is a significantly elevated. His creatinine on presentation to 18.6 which is above his baseline and he missed dialysis for a week. As well as the BUN is 175 on presentation the which is also elevated. AST of 108 which is slightly elevated but the ALT is 36 which is considered within normal limits. Phosphorus is 9.2 which is elevated and magnesium 3.1 which is also elevated. His potassium is trending down and the last one is 5.6. CT of the head is reported as degenerative and nonspecific white matter changes most typical of remote ischemic noted nodular prominence of basilar tip could be associated with a small aneurysm short segment follow-up [facility] [place] recommended. Chest x-ray was reported as cardiomegaly and chronic parenchymal changes with the right upper long and medial right mid to lower lung mass likely consolidation. Correlate for multi-lobe pneumonia. Follow-up studies after treatment advised to exclude underlying mass. Repeat chest x-ray on 10/16/2020 is reported as large right upper lobe consolidation can be compatible with pneumonia. Some improvement may be present. Continue to follow up to clearing is recommended that. 10/18/2020 patient seen and evaluated at bedside in ICU, patient is more awake and responsive this morning; remains confused Currently on room air with a pulse ox of 95%, no evidence of any respiratory distress Chest x-ray has been reviewed showing persistent right upper lobe consolidation; patient remains on IV antibiotics in form of Zosyn and vancomycin. His blood cultures have been negative; white count is 6.0, hemoglobin is 10.2, sodium is 144, potassium is 5.1, chloride is 108, CO2 is 18, B1 is 91, creatinine is 9.5. Patient is negative for COVID-19 MRI of the brain reveals no signs of compressive lesion. CT angiogram of the head and neck reveals no signs of aneurysm. Patient had hemodialysis treatment yesterday would removal of 1.5 L of fluid, his total CK is improving on today's labs, and is down to 1125. Patient remains on Decadron milligrams every 6 hours for papilledema, patient was seen by ophthalmology consultation was noted. Patient has been nothing by mouth, and he states he is hungry and would like to eat. His abdomen is soft, no tenderness tenderness, no nausea vomiting or diarrhea. Blood pressures are running a little higher, with the systolic in the 150s and 160s and diastolic in the 90s and 100s. We can restart some of his home medications including Coreg, Norvasc, Cardura. Neurology is on board for toxic metabolic encephalopathy; possibility of myasthenia gravis given bilateral ptosis and anisocoria; acetylcholine receptor antibodies has been ordered by neurology Objective - Vital Signs Vital signs: Vital Signs Temp 97.4 F L 10/18/20 08:00 Pulse 90 10/18/20 11:35 Resp 14 10/18/20 11:00 BP 152/97 10/18/20 11:00 Pulse Ox 95 10/18/20 11:00 Intake & Output 10/17/20 10/18/20 10/18/20 18:59 06:59 18:59 Intake Total 2200 1800 600 Output Total 0 1800 0 Balance 2200 0 600 Weight 63.8 kg Intake: IV 2200 1800 600 Lacosamide IV 50 mg In 50 50 Sodium Chloride 0.9% 50 ml @ 100 mls/hr IVPB BID [facility] Rx#:[id number] Piperacillin-Tazobactam 3 100 100 .375 gm In Sodium Chloride 0.9% 100 ml @ 25 mls/hr IVPB Q12HR [facility] Rx #:[id number] Sodium Chloride 0.9% 1, 1800 1650 600 000 ml @ 75 mls/hr IV . [id number] [facility] Rx#:[id number] Vancomycin 1,250 mg In 250 Sodium Chloride 0.9% 250 ml @ 125 mls/hr IVPB ONCE ONE Rx#:[id number] Output: Urine 0 0 0 Hemodialysis 1800 - Exam - Constitutional General appearance: Present: average body habitus, cooperative, no acute distress - EENT Eyes: Present: anicteric sclerae, EOMI, PERRLA, normal appearance ENT: Present: hearing grossly normal, normal oropharynx Ears: bilateral: normal - Neck Neck: Present: normal ROM. Absent: lymphadenopathy, rigidity, thyromegaly Carotids: negative: bruit present Thyroid: bilateral: normal size, negative: enlarged, nodule - Respiratory Respiratory: bilateral: CTA, negative: rales, rhonchi, wheezing - Cardiovascular Rhythm: regular Heart sounds: normal: S1, S2 Abnormal Heart Sounds: Absent: systolic murmur, diastolic murmur - Gastrointestinal General gastrointestinal: Present: normal bowel sounds, soft. Absent: distende d, organomegaly, tenderness - Genitourinary Genitourinary Comment(s): deferred - Integumentary Integumentary: Present: normal turgor. Absent: jaundiced, rash, ulcer - Neurologic Neurologic: Present: CNII-XII intact. Absent: focal deficits - Musculoskeletal Musculoskeletal: Present: gait normal, strength equal bilaterally - Psychiatric Psychiatric: Present: A&O x's 3, appropriate affect, intact judgment & insight - Labs CBC & Chem 7: 10/18/20 05:30 10/18/20 05:31 Labs: Abnormal Lab Results - Last 24 Hours (Table) 10/17/20 10/17/20 10/17/20 Range/Units 14:01 18:59 22:55 RBC (4.30-5.90) m/uL Hgb (13.0-17.5) gm/dL Hct (39.0-53.0) % MCV (80.0-100.0) fL Chloride (98-107) mmol/L Carbon Dioxide (22-30) mmol/L BUN (9-20) mg/dL Creatinine (0.66-1.25) mg/dL Glucose (74-99) mg/dL POC Glucose (mg/dL) 119 H 123 H 112 H (75-99) mg/dL Calcium (8.4-10.2) mg/dL Creatine Kinase (55-170) U/L 10/18/20 10/18/20 10/18/20 Range/Units 05:30 05:31 06:02 RBC 3.16 L (4.30-5.90) m/uL Hgb 10.2 L (13.0-17.5) gm/dL Hct 32.5 L (39.0-53.0) % MCV 103.0 H (80.0-100.0) fL Chloride 108 H (98-107) mmol/L Carbon Dioxide 18 L (22-30) mmol/L BUN 91 H (9-20) mg/dL Creatinine 9.50 H* (0.66-1.25) mg/dL Glucose 134 H (74-99) mg/dL POC Glucose (mg/dL) 125 H (75-99) mg/dL Calcium 11.0 H (8.4-10.2) mg/dL Creatine Kinase (55-170) U/L 10/18/20 10/18/20 Range/Units 09:16 11:03 RBC (4.30-5.90) m/uL Hgb (13.0-17.5) gm/dL Hct (39.0-53.0) % MCV (80.0-100.0) fL Chloride (98-107) mmol/L Carbon Dioxide (22-30) mmol/L BUN (9-20) mg/dL Creatinine (0.66-1.25) mg/dL Glucose (74-99) mg/dL POC Glucose (mg/dL) 136 H (75-99) mg/dL Calcium (8.4-10.2) mg/dL Creatine Kinase 1125 H* (55-170) U/L Microbiology - Last 24 Hours (Table) 10/15/20 14:05 Blood Culture - Preliminary Blood No Growth after 48 hours 10/15/20 14:21 Blood Culture - Preliminary Blood No Growth after 48 hours Assessment and Plan Assessment: 1. Altered mental status, secondary to acute metabolic encephalopathy with severe uremia - known history of end-stage renal disease, but no hemodialysis for the last 1 week. - Nephrology is on board and patient will undergo hemodialysis today and again tomorrow 2. Papilledema involving the right optic nerve, possible CVA. Further workup is pending. -- Possible CVA with encephalopathy profound weakness and myoclonic jerks as well as anisocoria/unequal pupillary sizes; patient has been placed on Decadron 4 mg IV every 6 hours her papilledema - Stat neurology consultation is obtained; ophthalmology is consulted - CT head and CTA head and neck is unremarkable; patient is to receive an MRI of the brain; EEG is ordered and pending 3. Acute rhabdomyolysis with significantly elevated CPK mostly because the patient has been inactive, and he may have fallen at home. - Patient will be treated with IV fluid hydration; hemodialysis per nephrology recommendations; we will monitor strict VIOLA's, daily weights, renal function and electrolytes 4. Acute bilateral pneumonia with significant consolidation in the right upper lobe, strongly suspect aspiration pneumonia. --Possible sepsis with pneumonia being the primary source. - [employer] recommending IV Zosyn and vancomycin for presumption of aspiration pneumonia and sepsis - Further recommendations once blood cultures and sputum cultures are resulted 5. End-stage renal disease, on hemodialysis. --Acute metabolic acidosis secondary to chronic kidney disease. --Hyperkalemia secondary to chronic kidney disease and missed hemodialysis. 6. Hypertension; amlodipine 10 mg daily, Coreg 25 mg twice a day, Cardura 2 mg twice a day and clonidine 0.3 mg every 8 hours DVT prophylaxis; SCDs CODE STATUS; full code
[2020-10-18 18:01] LABS: Glucose,Whole Blood 151 mg/dL (75-99)
[2020-10-18 23:38] LABS: Glucose,Whole Blood 137 mg/dL (75-99)
[2020-10-19] MEDS: SODIUM CHLORIDE 0.9% 1,000 ML IV SCH ×2 (00:05→16:44)
[2020-10-19 00:37] LABS: Glucose,Whole Blood 127 mg/dL (75-99)
[2020-10-19 05:52] LABS: Basophils % (A) 0 %; Eosinophils % (A) 0 %; HCT 30.7 % (39.0-53.0); HGB 9.6 gm/dL (13.0-17.5); Hypochromasia Marked; Lymphocytes # (A) 0.3 k/uL (1.0-4.8); Lymphocytes % (A) 5 %; MCH 32.2 pg (25.0-35.0); MCHC 31.3 g/dL (31.0-37.0); MCV 102.7 fL (80.0-100.0); Macrocytosis Slight; Mean Platelet Volume 10.5; Monocytes # (A) 0.2 k/uL (0-1.0); Monocytes % (A) 3 %; Neutrophils # (A) 4.7 k/uL (1.3-7.7); Neutrophils % (A) 90 %; Platelet Count 135 k/uL (150-450); RBC 2.99 m/uL (4.30-5.90); WBC 5.2 k/uL (3.8-10.6)
[2020-10-19 06:09] LABS: Albumin 2.3 g/dL (3.5-5.0); Calcium 10.2 mg/dL (8.4-10.2); Potassium 5.2 mmol/L (3.5-5.1); Total Bilirubin 0.5 mg/dL (0.2-1.3); Total Protein 4.6 g/dL (6.3-8.2)
[2020-10-19 06:16] LABS: Glucose,Whole Blood 138 mg/dL (75-99)
--- NOTE | 2020-10-19 07:42 | XR ---
EXAMINATION TYPE: XR chest 1V DATE OF EXAM: 10/19/2020 COMPARISON: 10/17/2020 INDICATION: Short of breath TECHNIQUE: Single frontal view of the chest is obtained. FINDINGS: The heart size is prominent. The pulmonary vasculature is normal. Vertebral of consolidation is present which is improving. Left lower lobe infiltrate is developing. IMPRESSION: 1. Improving right upper lobe infiltrate. 2. Developing left lower lobe infiltrate.
[2020-10-19] MEDS: IPRATROPIUM-ALBUTEROL 3 ML NEB INHALATION SCH ×4 (07:49→19:26)
[2020-10-19] MEDS: carvediloL 12.5 MG TAB PO SCH ×2 (09:14→16:44)
[2020-10-19] MEDS: PIPERACILLIN-TAZOBACTAM 3.375 GM in SODIUM CHLORIDE 0.9% 100 ML IVPB SCH ×2 (09:32→22:13)
[2020-10-19] MEDS: cloNIDine HCL 0.1 MG TAB PO SCH ×3 (09:33→22:13)
[2020-10-19] MEDS: DEXAMETHASONE SOD PHOSPHATE 4 MG/ML 1 ML VIAL IV SCH ×2 (09:33→22:14)
[2020-10-19] MEDS: amLODIPine 10 MG TAB PO SCH (09:33)
[2020-10-19] MEDS: DOXAZOSIN 2 MG TAB PO SCH ×2 (09:33→22:14)
--- NOTE | 2020-10-19 10:50 | P.PN ---
Subjective Progress Note Date: 10/19/20 Principal diagnosis: Acute metabolic encephalopathy This is a 64-year-old white male with history of chronic renal failure, end- stage renal disease, patient is on hemodialysis normally Monday and Monday. Patient has always been very compliant with hemodialysis treatments and he always showed up to the dialysis unit for hemodialysis on a regular basis. However over the last week, patient has not been showing up for his hemodialysis, and a wellness check on the patient was done, and he was found use, short of breath, and experiencing episodes of myoclonic jerks, and extremely weak. Patient was brought into the ER, and he was found to have right upper lobe pneumonia possibly even a left lower lobe infiltrate, patient is also found to have profound mental status change with profound weakness, myoclonic jerking, anisocoria with right pupil much more dilated than the left pupil. Patient is also found to be extremely uremic and encephalopathic. Workup in the ER included CT of the brain which was nondiagnostic except for slight asymmetry of the optic nerve on the right. Nonspecific white matter changes were noted. His labs showed no evidence of leukocytosis. He was hyperkalemic with a potassium as high as 6.8 acidotic with bicarb of 18 uremic with a BUN of 175 and creatinine of 18.65. COVID-19 PCR was negative. ABG on BiPAP showed a pO2 of 143 pCO2 of 32 pH of 7.43. And this was on IPAP of 12 and EPAP of 6 and FiO2 of 40%. Angiography CT of the head and neck is pending. Patient was admitted to the ICU, and I was asked to see him on consultation. As soon as I evaluated the patient, recommended stat neurological consultation, also recommended changing his antibiotics to vancomycin and Zosyn. Cultures are pending. Patient was reevaluated today on 10/17/2020, remains in the ICU, remains on BiPAP with IPAP of 12 and EPAP of 6 FiO2 40%, remains on daily hemodialysis, he is receiving hemodialysis this morning. Continues to have significant uremia creatinine remains 12.28. Patient will be dialyzed today and the plan is to remove 3 L. Patient did not get a lumbar puncture mostly because of his elevated PTT. Remains on IV fluid at 0.9 normal saline 1 50 mL per hour. CPK is improving, but remains over 1999. CBC is relatively normal PTT is 42 potassium is 5.5 BUN 105 creatinine 12.28. CPK 2226. Patient remains on updrafts, he is also on anti-seizure therapy, Decadron, Zosyn empirically, chest x-ray continues to show right upper lobe pneumonia. On 10/18/2020 patient seen in follow-up in the intensive care unit, he is more awake on today's exam, however still confused, but not agitated, less shaky, he is breathing comfortably, he is currently on room air with a pulse ox of 95%, no evidence of any respiratory distress, he is on IV fluids 0.9 at 150 ML per hour, no other drips. Today's chest x-ray has been reviewed showing persistent right upper lobe consolidation. Current antibiotic coverage is with Zosyn and van comycin. His blood cultures have been negative, today's labs have been reviewed. His white count is 6.0, hemoglobin is 10.2, sodium is 144, potassium is 5.1, chloride is 108, CO2 is 18, B1 is 91, creatinine is 9.5. Patient had hemodialysis treatment yesterday would removal of 1.5 L of fluid, his total CK is improving on today's labs, and is down to 1125. Patient was also tested for COVID-19 was found to be negative, his vital signs have been stable, his last lactic acid from couple days ago was down to 1.7. At no fever or chills in the last 24 hours. Pupils are a lot more reactive today, his right pupil is improved in size, and is 3 mm, his left pupil is 2 mm. And also remains on Deca dron milligrams every 6 hours for papilledema, patient was seen by ophthalmology consultation was noted. Patient has been nothing by mouth, and he states he is hungry and would like to eat. His abdomen is soft, no tenderness tenderness, no nausea vomiting or diarrhea. Blood pressures are running a little higher, with the systolic in the 150s and 160s and diastolic in the 90s and 100s. We can r estart some of his home medications including Coreg, Norvasc, Cardura. On 10/19/2009 with patient seen in follow-up in intensive care unit, he is resting comfortably in bed, he is awake, he is oriented to self, but not place or time. No garbled speech, no focal neurological deficits. He is moving all 4 extremities, he is generally weak, appears to be in no acute distress, no sign of any shortness of breath or cough, today's chest x-ray has been reviewed showing improving right upper lobe infiltrate, and developing left lower lobe infiltrate. He is on 2 L of oxygen with pulse ox of 98%, as been afebrile, hemodynamically his been stable, he continues on Zosyn for antibiotic coverage. Cultures remain negative, patient's last hemodialysis session was on 10/17/2020 would removal of 1.8 L of fluid. Patient remains on dexamethasone 4 mg twice a day, remains on Levaquin some 9, remains on breathing treatments, antibiotics, and IV fluids with 0.9 normal saline at a rate of 75 ML per hour. No Acute issues overnight. Today's labs have been reviewed, white blood cell count is 5.2, hemoglobin is 9.6, potassium is 5.2, chloride is 110, CO2 is 20, B1 is 117, creatinine is 9.85. Patient is anuric, anticipate hemodialysis today, nephrology is following. His CPKs were improving on yesterday's labs and or down to 1125, obtain a follow-up CK today. His had no nausea or vomiting or diarrhea. His oral intake has been poor. The patient has been tolerating full liquid diet. Objective - Vital Signs Vital signs: Vital Signs Temp 98.9 F 10/19/20 08:00 Pulse 58 L 10/19/20 10:00 Resp 15 10/19/20 10:00 BP 96/63 10/19/20 10:00 Pulse Ox 94 L 10/19/20 10:00 Intake & Output 10/18/20 10/19/20 10/19/20 18:59 06:59 18:59 Intake Total 1125 1080 400 Output Total 0 0 Balance 1125 1080 400 Weight 67.3 kg Intake: IV 1125 1050 400 Lacosamide IV 50 mg In 50 Sodium Chloride 0.9% 50 ml @ 100 mls/hr IVPB BID [facility] Rx#:[id number] Piperacillin-Tazobactam 3 100 100 .375 gm In Sodium Chloride 0.9% 100 ml @ 25 mls/hr IVPB Q12HR [facility] Rx #:[id number] Sodium Chloride 0.9% 1, 1125 900 300 000 ml @ 75 mls/hr IV . [id number] [facility] Rx#:[id number] Oral 30 Output: Urine 0 0 Other: # Bowel Movements 1 - Exam GENERAL EXAM: Lethargic, but readily arousable to verbal stimuli, 64-year-old white male, resting comfortably in bed, oriented 2, slightly confused, but not agitated, on room air with a pulse ox of 95% comfortable in no apparent distress. HEAD: Normocephalic/atraumatic. EYES: Normal reaction of pupils, equal size. Conjunctiva pink, sclera white. NOSE: Clear with pink turbinates. THROAT: No erythema or exudates. NECK: No masses, no JVD, no thyroid enlargement, no adenopathy. CHEST: No chest wall deformity. Symmetrical expansion. LUNGS: Equal air entry with no crackles, wheeze, rhonchi or dullness. CVS: Regular rate and rhythm, normal S1 and S2, no gallops, no murmurs, no rubs ABDOMEN: Soft, nontender. No hepatosplenomegaly, normal bowel sounds, no guarding or rigidity. EXTREMITIES: No clubbing, no edema, no cyanosis, 2+ pulses and upper and lower extremities. MUSCULOSKELETAL: Muscle strength and tone normal. SPINE: No scoliosis or deformity SKIN: No rashes CENTRAL NERVOUS SYSTEM: Alert and oriented -2. No focal deficits, tone is normal in all 4 extremities. PSYCHIATRIC: Alert and oriented -2. Appropriate affect. Intact judgment and insight. - Labs CBC & Chem 7: 10/19/20 05:36 10/19/20 05:36 Labs: Abnormal Lab Results - Last 24 Hours (Table) 10/18/20 10/18/20 10/18/20 Range/Units 11:03 17:59 23:36 RBC (4.30-5.90) m/uL Hgb (13.0-17.5) gm/dL Hct (39.0-53.0) % MCV (80.0-100.0) fL Plt Count (150-450) k/uL Lymphocytes # (1.0-4.8) k/uL Potassium (3.5-5.1) mmol/L Chloride (98-107) mmol/L Carbon Dioxide (22-30) mmol/L BUN (9-20) mg/dL Creatinine (0.66-1.25) mg/dL Glucose (74-99) mg/dL POC Glucose (mg/dL) 136 H 151 H 137 H (75-99) mg/dL Alkaline Phosphatase (38-126) U/L Total Protein (6.3-8.2) g/dL Albumin (3.5-5.0) g/dL 10/19/20 10/19/20 10/19/20 Range/Units 00:35 05:36 05:36 RBC 2.99 L (4.30-5.90) m/uL Hgb 9.6 L (13.0-17.5) gm/dL Hct 30.7 L (39.0-53.0) % MCV 102.7 H (80.0-100.0) fL Plt Count 135 L (150-450) k/uL Lymphocytes # 0.3 L (1.0-4.8) k/uL Potassium 5.2 H (3.5-5.1) mmol/L Chloride 110 H (98-107) mmol/L Carbon Dioxide 20 L (22-30) mmol/L BUN 117 H* (9-20) mg/dL Creatinine 9.85 H* (0.66-1.25) mg/dL Glucose 149 H (74-99) mg/dL POC Glucose (mg/dL) 127 H (75-99) mg/dL Alkaline Phosphatase 32 L (38-126) U/L Total Protein 4.6 L (6.3-8.2) g/dL Albumin 2.3 L (3.5-5.0) g/dL 10/19/20 Range/Units 06:14 RBC (4.30-5.90) m/uL Hgb (13.0-17.5) gm/dL Hct (39.0-53.0) % MCV (80.0-100.0) fL Plt Count (150-450) k/uL Lymphocytes # (1.0-4.8) k/uL Potassium (3.5-5.1) mmol/L Chloride (98-107) mmol/L Carbon Dioxide (22-30) mmol/L BUN (9-20) mg/dL Creatinine (0.66-1.25) mg/dL Glucose (74-99) mg/dL POC Glucose (mg/dL) 138 H (75-99) mg/dL Alkaline Phosphatase (38-126) U/L Total Protein (6.3-8.2) g/dL Albumin (3.5-5.0) g/dL Microbiology - Last 24 Hours (Table) 10/15/20 14:21 Blood Culture - Preliminary Blood No Growth after 72 hours 10/15/20 14:05 Blood Culture - Preliminary Blood No Growth after 72 hours Assessment and Plan Plan: Assessment: #1. Altered mental status, secondary to acute metabolic encephalopathy with severe uremia, with a known history of end-stage renal disease, had missed hemodialysis for one week prior to presentation #2. Possible CVA with encephalopathy, profound weakness in myoclonic jerks as well as in the subchorionic/unequal pupillary sizes. #3. Acute rhabdomyolysis with significantly elevated CPK, related to possible fall at home, and inability to ambulate #4. Acute bilateral pneumonia with significant consolidation in the right upper lobe, strongly suspect aspiration pneumonia, currently covered with Zosyn and vancomycin #5. Possible sepsis with pneumonia being the primary source #6. End-stage renal disease on hemodialysis #7. History of hypertension #8. Acute metabolic acidosis secondary to acute on chronic kidney disease #9. Hyperkalemia secondary to acute on chronic kidney disease, and missed hemodialysis, improved #10. Papilledema involving the right optic nerve, possible CVA, ophthalmology is following. She is currently on Decadron. CT had and CTA head and neck were unremarkable, MRI of the brain with no evidence of recent infarct #11. Myoclonus, EEG showed background slowing, suggestive of mild to moderate encephalopathy, no evidence of epileptiform discharges Plan: Continue IV fluids at 75 follow up CK level Continue antibiotic coverage with Zosyn Continue Decadron 4 mg IV twice daily Today's chest x-ray has been reviewed, labs have been reviewed Hemodialysis per nephrology Hemodynamically patient has remained stable Allegedly patient is a bit more awake and alert although still disoriented to place and time Neurology swallowing MRI showed no compressive lesion or aneurysm No acute issues overnight Vital signs are stable Stable to [facility] I performed a history & physical examination of the patient and discussed their management with my nurse practitioner, Acacia Guzman. I reviewed the nurse practitioner's note and agree with the documented findings and plan of care. Lung sounds are positive for clear breath sounds throughout the lung hurt[place]. The findings and the impression was discussed with the patient. I attest to the documentation by the nurse practitioner. Time with Patient: Greater than 30
[2020-10-19 11:06] LABS: Candida albicans IgE Class CLASS 0
[2020-10-19 11:21] LABS: Glucose,Whole Blood 110 mg/dL (75-99)
[2020-10-19 13:22] LABS: Folate, Serum 15.3 ng/mL
--- NOTE | 2020-10-19 14:14 | PN ---
PROGRESS NOTE The patient is seen for followup for end-stage renal disease. He is currently seen on hemodialysis, tolerating his treatment fairly well. Blood pressure slightly on the lower side. Goal UF is about 1-2 L as tolerated. PHYSICAL EXAMINATION: On examination today, patient is awake. He is comfortable. He goes back to sleep. Blood pressure 130/79, heart rate 70 per minute. He is afebrile. Examination of the heart S1, S2. Examination of the lungs, bilateral breath sounds are heard. Abdomen is soft, nontender. Examination of lower extremities shows improved edema. [employer] exam grossly intact. LAB: Shows hemoglobin 9.6 g/dL, sodium 143, potassium 5.2, BUN 117, creatinine 9.85. ASSESSMENT: 1. End-stage renal disease, on hemodialysis on a Monday, , Monday schedule as outpatient status post hemodialysis on Monday. Patient being dialyzed again today secondary to significantly elevated BUN and creatinine and the fact that he had missed a week of dialysis prior to his admission. 2. Metabolic acidosis. Expect improvement post dialysis. The bicarb bath has been adjusted. 3. Hyperkalemia, improved post dialysis. 4. Pneumonia with right upper lobe consolidation, maintained on antibiotics. 5. Mental status changes secondary to pneumonia and uremia. 6. Gastrointestinal bleed. PLAN: Hemodialysis today. Can decrease goal to about 1 to 1-1/2 L as tolerated since blood pressure is on the lower side. Patient's volume status has improved significantly. MMODL / IJN: [id number] /
--- NOTE | 2020-10-19 14:50 | P.PN ---
Subjective Progress Note Date: 10/19/20 64-year-old male presenting to emergency department by ambulance for dyspnea. Patient reportedly has been missing his dialysis and police have been called several times for well check. Patient has refused to go for dialysis. Patient was found today to be altered during will check. Patient is a poor historian. Patient does admit to being short of breath. EMS was concerned for possible fever. Initial vital signs: Blood pressure of 145/83, heart rate of 87, respiratory of 22, temperature of 103.3 Fahrenheit rectal and pulse ox of 99% room air. He had a repeated the temperature of 101.2. White blood cell is 8.9 and a repeat is 6 0.1 thousand which is considered within normal limits. He had the slight neutrophilic of 8.3. Chemistry panel is a sodium of 139 considered within normal limits, glucose of 120 which is slightly elevated but unremarkable, calcium initial one was 9.8 which is considered within normal limits. His initial potassium is 6.8 which is a significantly elevated. His creatinine on presentation to 18.6 which is above his baseline and he missed dialysis for a week. As well as the BUN is 175 on presentation the which is also elevated. AST of 108 which is slightly elevated but the ALT is 36 which is considered within normal limits. Phosphorus is 9.2 which is elevated and magnesium 3.1 which is also elevated. His potassium is trending down and the last one is 5.6. CT of the head is reported as degenerative and nonspecific white matter changes most typical of remote ischemic noted nodular prominence of basilar tip could be associated with a small aneurysm short segment follow-up [facility] recommended. Chest x-ray was reported as cardiomegaly and chronic parenchymal changes with the right upper long and medial right mid to lower lung mass likely conso lidation. Correlate for multi-lobe pneumonia. Follow-up studies after treatment advised to exclude underlying mass. Repeat chest x-ray on 10/16/2020 is reported as large right upper lobe consolidation can be compatible with pneumonia. Some improvement may be present. Continue to follow up to clearing is recommended that. 10/18/2020 patient seen and evaluated at bedside in ICU, patient is more awake and responsive this morning; remains confused Currently on room air with a pulse ox of 95%, no evidence of any respiratory distress Chest x-ray has been reviewed showing persistent right upper lobe consolidation; patient remains on IV antibiotics in form of Zosyn and vancomycin. His blood cultures have been negative; white count is 6.0, hemoglobin is 10.2, sodium is 144, potassium is 5.1, chloride is 108, CO2 is 18, B1 is 91, creatinine is 9.5. Patient is negative for COVID-19 MRI of the brain reveals no signs of compressive lesion. CT angiogram of the head and neck reveals no signs of aneurysm. Patient had hemodialysis treatment yesterday would removal of 1.5 L of fluid, his total CK is improving on today's labs, and is down to 1125. Patient remains on Decadron milligrams every 6 hours for papilledema, patient was seen by ophthalmology consultation was noted. Patient has been nothing by mouth, and he states he is hungry and would like to eat. His abdomen is soft, no tenderness tenderness, no nausea vomiting or diarrhea. Blood pressures are r unning a little higher, with the systolic in the 150s and 160s and diastolic in the 90s and 100s. We can restart some of his home medications including Coreg, Norvasc, Cardura. Neurology is on board for toxic metabolic encephalopathy; possibility of myasthenia gravis given bilateral ptosis and anisocoria; acetylcholine receptor antibodies has been ordered by neurology 10/19/2020 Patient is seen and evaluated in follow-up today continues to be closely monitored in the ICU. Patient's mentation continues to improve although extremely lethargic and is alert 2. Patient currently receiving hemodialysis for end-stage renal disease. Multiple consultations including nephrology and neurology following along with crm campaign manager. Patient states he uses 2 L of oxygen in the outpatient setting and continues to do so although denies any worsening shortness of breath. Patient's chest x-ray today shows improving right upper lobe infiltrate with a possible developing left lower lobe. Blood pressure has been on the lower side and will continue to monitor. White blood count within normal limits at 5.2, hemoglobin is 9.6, sodium is 143 with a potassium of 5.2, BUN is 117 and creatinine is 9.85. Sugars being monitored closely and will continue with sliding scale if needed. Patient maintained on full liquids and tolerating although continues to have poor oral intake stating he does not have much of an appetite. Patient also continues on IV Zosyn with infectious disease following closely. Blood cultures have remained negative. Patient is afebrile. Review of systems: Constitutional: reports of fatigue Cardiovascular: No reports of chest pain or palpitations Respiratory: No reports of shortness of breath or cough GI: No reports of nausea, vomiting, or diarrhea : No reports of dysuria or retention, a is anuric Neurovascular: Reports generalized weakness All medications have been reviewed Physical exam: Gen: This is a 64-year-old male asleep and lethargic although easily arousable but fatigues easily, oriented 2, no acute distress HEENT: Head is atraumatic, normocephalic. Pupils equal, round. Sclerae is anicteric. NECK: Supple. No JVD. No lymphadenopathy. No thyromegaly. LUNGS: Diminished breath sounds bilaterally with no wheezing or rhonchi noted. No intercostal retractions. HEART: Regular rate and rhythm. No murmur. ABDOMEN: Soft. Thin, Bowel sounds are present. No masses. No tenderness. EXTREMITIES: No pedal edema. No calf tenderness. NEUROLOGICAL: Patient is awake, alert and oriented x3. Cranial nerves 2 through 12 are grossly intact. Assessment and plan: Altered mental status secondary to acute medical encephalopathy with severe uremia: Patient has end-stage renal disease and had been missing hemodialysis for 1 week, nephrology following and currently receiving ultrafiltration dialysis today Papilledema involving the right optic nerve, possibly CVA with neurology following a neurological workup is in process, CT of the head and CTA of the h ead and neck are negative, MRI of the brain is negative for recent infarct with possible left mastoiditis not excluded Acute rhabdomyolysis with elevated CK with possibility of unwitnessed fall and downtime at home Acute bilateral pneumonia with significant consolidation in the right upper lobe with possible aspiration pneumonia with possible sepsis, present on admission: Patient being followed by infectious disease and maintained on IV Zosyn End-stage renal disease on hemodialysis and nephrology following, reported one week without dialysis Acute metabolic acidosis secondary to chronic kidney disease Hyperkalemia secondary to chronic kidney disease and missed hemodialysis Hypertension DVT prophylaxis Full code Plan: Patient continues on hemodialysis with nephrology along with crm campaign manager and infectious disease following. Neurology also following. Patient underwent MRI of the brain which was negative for any evidence of recent infarct which also showed some background mild diffuse cerebral atrophy and moderate to advanced nonspecific white matter changes favoring chronic small vessel ischemic change with increased fluid signal of the left mastoid air cells that could reflect mas toiditis. Ophthalmology was consulted and pending. Patient to continue on IV antibiotic therapy along with gentle IV hydration and IV Decadron. Patient to continue with breathing inhalational treatments as well. Will repeat labs in continue to monitor closely. Encourage oral intake as he is maintained on full liquids and not eating much. Patient is extremely lethargic but arousable. We'll have PT/OT evaluate the patient. Objective - Vital Signs Vital signs: Vital Signs Temp 98.9 F 10/19/20 08:00 Pulse 57 L 10/19/20 08:00 Resp 16 10/19/20 08:00 BP 107/70 10/19/20 08:00 Pulse Ox 98 10/19/20 08:00 Intake & Output 10/18/20 10/19/20 10/19/20 18:59 06:59 18:59 Intake Total 1125 1080 150 Output Total 0 0 Balance 1125 1080 150 Weight 67.3 kg Intake: IV 1125 1050 150 Lacosamide IV 50 mg In 50 Sodium Chloride 0.9% 50 ml @ 100 mls/hr IVPB BID [facility] Rx#:[id number] Piperacillin-Tazobactam 3 100 .375 gm In Sodium Chloride 0.9% 100 ml @ 25 mls/hr IVPB Q12HR [facility] Rx #:[id number] Sodium Chloride 0.9% 1, 1125 900 150 000 ml @ 75 mls/hr IV . [id number] [facility] Rx#:[id number] Oral 30 Output: Urine 0 0 Other: # Bowel Movements 1 - Labs CBC & Chem 7: 10/19/20 05:36 10/19/20 05:36 Labs: Abnormal Lab Results - Last 24 Hours (Table) 10/18/20 10/18/20 10/18/20 Range/Units 09:16 11:03 17:59 RBC (4.30-5.90) m/uL Hgb (13.0-17.5) gm/dL Hct (39.0-53.0) % MCV (80.0-100.0) fL Plt Count (150-450) k/uL Lymphocytes # (1.0-4.8) k/uL Potassium (3.5-5.1) mmol/L Chloride (98-107) mmol/L Carbon Dioxide (22-30) mmol/L BUN (9-20) mg/dL Creatinine (0.66-1.25) mg/dL Glucose (74-99) mg/dL POC Glucose (mg/dL) 136 H 151 H (75-99) mg/dL Alkaline Phosphatase (38-126) U/L Creatine Kinase 1125 H* (55-170) U/L Total Protein (6.3-8.2) g/dL Albumin (3.5-5.0) g/dL 10/18/20 10/19/20 10/19/20 Range/Units 23:36 00:35 05:36 RBC 2.99 L (4.30-5.90) m/uL Hgb 9.6 L (13.0-17.5) gm/dL Hct 30.7 L (39.0-53.0) % MCV 102.7 H (80.0-100.0) fL Plt Count 135 L (150-450) k/uL Lymphocytes # 0.3 L (1.0-4.8) k/uL Potassium (3.5-5.1) mmol/L Chloride (98-107) mmol/L Carbon Dioxide (22-30) mmol/L BUN (9-20) mg/dL Creatinine (0.66-1.25) mg/dL Glucose (74-99) mg/dL POC Glucose (mg/dL) 137 H 127 H (75-99) mg/dL Alkaline Phosphatase (38-126) U/L Creatine Kinase (55-170) U/L Total Protein (6.3-8.2) g/dL Albumin (3.5-5.0) g/dL 10/19/20 10/19/20 Range/Units 05:36 06:14 RBC (4.30-5.90) m/uL Hgb (13.0-17.5) gm/dL Hct (39.0-53.0) % MCV (80.0-100.0) fL Plt Count (150-450) k/uL Lymphocytes # (1.0-4.8) k/uL Potassium 5.2 H (3.5-5.1) mmol/L Chloride 110 H (98-107) mmol/L Carbon Dioxide 20 L (22-30) mmol/L BUN 117 H* (9-20) mg/dL Creatinine 9.85 H* (0.66-1.25) mg/dL Glucose 149 H (74-99) mg/dL POC Glucose (mg/dL) 138 H (75-99) mg/dL Alkaline Phosphatase 32 L (38-126) U/L Creatine Kinase (55-170) U/L Total Protein 4.6 L (6.3-8.2) g/dL Albumin 2.3 L (3.5-5.0) g/dL Microbiology - Last 24 Hours (Table) 10/15/20 14:21 Blood Culture - Preliminary Blood No Growth after 72 hours 10/15/20 14:05 Blood Culture - Preliminary Blood No Growth after 72 hours
[2020-10-19] MEDS: LACOSAMIDE IV 50 MG in SODIUM CHLORIDE 0.9% 50 ML IVPB SCH ×2 (15:00→23:48)
[2020-10-19 23:55] LABS: Glucose,Whole Blood 140 mg/dL (75-99)
[2020-10-20 06:01] LABS: Glucose,Whole Blood 135 mg/dL (75-99)
[2020-10-20] MEDS: carvediloL 12.5 MG TAB PO SCH ×2 (06:37→17:14)
[2020-10-20] MEDS: SODIUM CHLORIDE 0.9% 1,000 ML IV SCH (06:39)
--- NOTE | 2020-10-20 06:42 | P.PN ---
Subjective Progress Note Date: 10/20/20 Principal diagnosis: Acute on chronic renal failure. This is a 64-year-old white male with history of chronic renal failure, end- stage renal disease, patient is on hemodialysis normally Monday and Monday. Patient has always been very compliant with hemodialysis treatments and he always showed up to the dialysis unit for hemodialysis on a regular basis. However over the last week, patient has not been showing up for his hemodialysis, and a wellness check on the patient was done, and he was found use, short of breath, and experiencing episodes of myoclonic jerks, and extremely weak. Patient was brought into the ER, and he was found to have right upper lobe pneumonia possibly even a left lower lobe infiltrate, patient is also found to have profound mental status change with profound weakness, myoclonic jerking, anisocoria with right pupil much more dilated than the left pupil. Patient is also found to be extremely uremic and encephalopathic. Workup in the ER included CT of the brain which was nondiagnostic except for slight asymmetry of the optic nerve on the right. Nonspecific white matter changes were noted. His labs showed no evidence of leukocytosis. He was hyperkalemic with a potassium as high as 6.8 acidotic with bicarb of 18 uremic with a BUN of 175 and creatinine of 18.65. COVID-19 PCR was negative. ABG on BiPAP showed a pO2 of 143 pCO2 of 32 pH of 7.43. And this was on IPAP of 12 and EPAP of 6 and FiO2 of 40%. Angiography CT of the head and neck is pending. Patient was admitted to the ICU, and I was asked to see him on consultation. As soon as I evaluated the patient, recommended stat neurological consultation, also recommended changing his antibiotics to vancomycin and Zosyn. Cultures are pending. Patient was reevaluated today on 10/17/2020, remains in the ICU, remains on BiPAP with IPAP of 12 and EPAP of 6 FiO2 40%, remains on daily hemodialysis, he is receiving hemodialysis this morning. Continues to have significant uremia creatinine remains 12.28. Patient will be dialyzed today and the plan is to remove 3 L. Patient did not get a lumbar puncture mostly because of his elevated PTT. Remains on IV fluid at 0.9 normal saline 1 50 mL per hour. CPK is improving, but remains over 2000. CBC is relatively normal PTT is 42 potassium is 5.5 BUN 105 creatinine 12.28. CPK 2226. Patient remains on updrafts, he is also on anti-seizure therapy, Decadron, Zosyn empirically, chest x-ray continues to show right upper lobe pneumonia. On 10/18/2020 patient seen in follow-up in the intensive care unit, he is more awake on today's exam, however still confused, but not agitated, less shaky, he is breathing comfortably, he is currently on room air with a pulse ox of 95%, no evidence of any respiratory distress, he is on IV fluids 0.9 at 150 ML per hour, no other drips. Today's chest x-ray has been reviewed showing persistent right upper lobe consolidation. Current antibiotic coverage is with Zosyn and v ancomycin. His blood cultures have been negative, today's labs have been reviewed. His white count is 6.0, hemoglobin is 10.2, sodium is 144, potassium is 5.1, chloride is 108, CO2 is 18, B1 is 91, creatinine is 9.5. Patient had hemodialysis treatment yesterday would removal of 1.5 L of fluid, his total CK is improving on today's labs, and is down to 1125. Patient was also tested for COVID-19 was found to be negative, his vital signs have been stable, his last lactic acid from couple days ago was down to 1.7. At no fever or chills in the last 24 hours. Pupils are a lot more reactive today, his right pupil is improved in size, and is 3 mm, his left pupil is 2 mm. And also remains on De cadron milligrams every 6 hours for papilledema, patient was seen by ophthalmology consultation was noted. Patient has been nothing by mouth, and he states he is hungry and would like to eat. His abdomen is soft, no tenderness tenderness, no nausea vomiting or diarrhea. Blood pressures are running a little higher, with the systolic in the 150s and 160s and diastolic in the 90s and 100s. We can restart some of his home medications including Coreg, Norvasc, Cardura. On 10/19/2009 with patient seen in follow-up in intensive care unit, he is resting comfortably in bed, he is awake, he is oriented to self, but not place or time. No garbled speech, no focal neurological deficits. He is moving all 4 extremities, he is generally weak, appears to be in no acute distress, no sign of any shortness of breath or cough, today's chest x-ray has been reviewed showing improving right upper lobe infiltrate, and developing left lower lobe infiltrate. He is on 2 L of oxygen with pulse ox of 98%, as been afebrile, hemodynamically his been stable, he continues on Zosyn for antibiotic coverage. Cultures remain negative, patient's last hemodialysis session was on 10/17/2020 would removal of 1.8 L of fluid. Patient remains on dexamethasone 4 mg twice a day, remains on Levaquin some 9, remains on breathing treatments, antibiotics, and IV fluids with 0.9 normal saline at a rate of 75 ML per hour. No Acute issues overnight. Today's labs have been reviewed, white blood cell count is 5.2, hemoglobin is 9.6, potassium is 5.2, chloride is 110, CO2 is 20, B1 is 117, creatinine is 9.85. Patient is anuric, anticipate hemodialysis today, nephrology is following. His CPKs were improving on yesterday's labs and or down to 1125, obtain a follow-up CK today. His had no nausea or vomiting or diarrhea. His oral intake has been poor. The patient has been tolerating full liquid diet. Progress note dated 10/20/2020. This is a 64-year-old male who is again seen in the intensive care unit, room 253. The patient is waiting for a bed out on the general medical floor, with telemetry. Currently, he's on 2 L nasal cannula. He is getting saline at 50 mL an hour. He did have hemodialysis yesterday, with 1 L being removed. Clinically he is feeling well. He had an uneventful night according to the nurse. No labs from today as yet. Blood cultures are negative. Objective - Vital Signs Vital signs: Vital Signs Temp 98.1 F 10/20/20 02:00 Pulse 65 10/20/20 02:00 Resp 14 10/20/20 02:00 BP 133/81 10/20/20 02:00 Pulse Ox 94 L 10/20/20 02:00 Intake & Output 10/19/20 10/19/20 10/20/20 06:59 18:59 06:59 Intake Total 1080 1000 600 Output Total 0 1000 0 Balance 1080 0 600 Weight 67.3 kg 68 kg Intake: IV 1050 1000 600 Lacosamide IV 50 mg In 50 Sodium Chloride 0.9% 50 ml @ 100 mls/hr IVPB BID [facility] Rx#:[id number] Piperacillin-Tazobactam 3 100 100 .375 gm In Sodium Chloride 0.9% 100 ml @ 25 mls/hr IVPB Q12HR [facility] Rx #:[id number] Sodium Chloride 0.9% 1, 900 900 600 000 ml @ 75 mls/hr IV . [id number] [facility] Rx#:[id number] Oral 30 Output: Urine 0 0 0 Hemodialysis 1000 Other: # Bowel Movements 1 - Exam No acute distress, oriented 3. Currently on 2 L nasal cannula. HEENT examination is grossly unremarkable. Neck supple. Full range of motion. No adenopathy thyromegaly or neck vein distention. Cardiovascular examination reveals regular rhythm rate. S1-S2 normal. No S3 or S4. No discernible murmur noted. Heart sounds are distant. Heart rate 65 bpm. Lungs reveal scattered bilateral rhonchi. Mild bibasilar crackles. Breath sounds equal bilaterally. No wheezes. Abdomen soft bowel sounds are heard. No masses or tenderness. Extremities are intact. No cyanosis or clubbing. Mild diffuse edema is appreciated.. Skin is without rash or lesion. Neurologic examination is brief but nonfocal. - Labs CBC & Chem 7: 10/19/20 05:36 10/19/20 05:36 Labs: Abnormal Lab Results - Last 24 Hours (Table) 10/16/20 10/19/20 10/19/20 Range/Units 12:57 05:36 11:20 POC Glucose (mg/dL) 110 H (75-99) mg/dL Creatine Kinase 543 H (55-170) U/L RBC Folate 1,289 H (280 - 791) ng/mL 10/19/20 10/20/20 Range/Units 23:54 06:00 POC Glucose (mg/dL) 140 H 135 H (75-99) mg/dL Creatine Kinase (55-170) U/L RBC Folate (280 - 791) ng/mL Microbiology - Last 24 Hours (Table) 10/15/20 14:21 Blood Culture - Preliminary Blood No Growth after 96 hours 10/15/20 14:05 Blood Culture - Preliminary Blood No Growth after 96 hours Assessment and Plan Assessment: #1. Altered mental status, secondary to acute metabolic encephalopathy with severe uremia, with a known history of end-stage renal disease, had missed hemodialysis for one week prior to presentation. #2. Possible CVA with encephalopathy, profound weakness in myoclonic jerks as well as in the subchorionic/unequal pupillary sizes. #3. Acute rhabdomyolysis with significantly elevated CPK, related to possible fall at home, and inability to ambulate. #4. Acute bilateral pneumonia with significant consolidation in the right upper lobe, strongly suspect aspiration pneumonia, currently covered with Zosyn and vancomycin. #5. Possible sepsis with pneumonia being the primary source. #6. End-stage renal disease on hemodialysis. #7. History of hypertension. #8. Acute metabolic acidosis secondary to acute on chronic kidney disease. #9. Hyperkalemia secondary to acute on chronic kidney disease, and missed hemodialysis, improved. #10. Papilledema involving the right optic nerve, possible CVA, ophthalmology is following. She is currently on Decadron. CT had and CTA head and neck were unremarkable, MRI of the brain with no evidence of recent infarct. #11. Myoclonus, EEG showed background slowing, suggestive of mild to moderate encephalopathy, no evidence of epileptiform discharges. Plan: Plan dated 10/20/2020. The patient is stable. The patient can be transferred out of the intensive care unit. The patient did have hemodialysis yesterday, and 1 L was removed. The patient remains on 2 L nasal cannula. That can probably be weaned off as well. We will continue to follow. Prognosis is guarded. Time with Patient: Less than 30
[2020-10-20 07:57] LABS: Calcium 9.5 mg/dL (8.4-10.2); Potassium 4.4 mmol/L (3.5-5.1)
[2020-10-20 08:00] LABS: Basophils % (A) 1 %; Eosinophils % (A) 0 %; HCT 28.8 % (39.0-53.0); HGB 9.1 gm/dL (13.0-17.5); Hypochromasia Slight; Lymphocytes # (A) 0.4 k/uL (1.0-4.8); Lymphocytes % (A) 7 %; MCH 31.8 pg (25.0-35.0); MCHC 31.6 g/dL (31.0-37.0); MCV 100.6 fL (80.0-100.0); Macrocytosis Slight; Mean Platelet Volume 9.8; Monocytes # (A) 0.2 k/uL (0-1.0); Monocytes % (A) 4 %; Neutrophils # (A) 5.4 k/uL (1.3-7.7); Neutrophils % (A) 88 %; Platelet Count 131 k/uL (150-450); RBC 2.87 m/uL (4.30-5.90); RDW 15.6 % (11.5-15.5); WBC 6.1 k/uL (3.8-10.6)
--- NOTE | 2020-10-20 08:04 | PN ---
PROGRESS NOTE DATE OF SERVICE: 10/19/2020. REASON FOR FOLLOWUP: Pneumonia. INTERVAL HISTORY: The patient is afebrile. The patient is breathing slightly comfortably. Denies having any chest pain. Did have a cough. Not bringing up any sputum. No abdominal pain. No diarrhea. PHYSICAL EXAMINATION: Blood pressure 132/87, pulse of 73, temperature 98.4. He is 91% on 2 L nasal cannula. General description is a middle-aged male lying in bed in no distress. Respiratory system: Unlabored breathing with decreased breath sounds in the base. No wheeze. Heart S1, S2. Regular rate and rhythm. Abdomen: Soft, no tenderness. LABS: Hemoglobin 9.1, white count of 5.2. BUN of 114, creatinine 9.58. Blood culture negative. Sputum not collected. DIAGNOSTIC IMPRESSION AND PLAN: Patient with more likely aspiration etiology. Patient is covered with Zosyn that will be continued. Did have clinical improvement and continue supportive care. MMODL / IJN: [id number] /
[2020-10-20] MEDS: DEXAMETHASONE SOD PHOSPHATE 4 MG/ML 1 ML VIAL IV SCH ×2 (08:45→21:40)
[2020-10-20] MEDS: amLODIPine 10 MG TAB PO SCH (08:45)
[2020-10-20] MEDS: cloNIDine HCL 0.1 MG TAB PO SCH ×3 (08:45→21:40)
[2020-10-20] MEDS: PIPERACILLIN-TAZOBACTAM 3.375 GM in SODIUM CHLORIDE 0.9% 100 ML IVPB SCH ×2 (08:46→21:39)
[2020-10-20] MEDS: DOXAZOSIN 2 MG TAB PO SCH ×2 (08:46→21:40)
[2020-10-20] MEDS: IPRATROPIUM-ALBUTEROL 3 ML NEB INHALATION SCH ×4 (08:46→19:17)
[2020-10-20] MEDS: LACOSAMIDE IV 50 MG in SODIUM CHLORIDE 0.9% 50 ML IVPB SCH ×2 (09:05→22:05)
--- NOTE | 2020-10-20 11:20 | P.PN ---
Subjective Progress Note Date: 10/19/20 Patient was seen for a follow-up. Patient initially seen by Dr. Joaquin Camacho. Please refer to his note for details. Patient is a 64-year-old male with history of end-stage renal disease on hemodialysis, who missed his dialysis for one week. Patient came with altered mental status, unequal pupil, enlarged on the right but slightly reactive. Patient is receiving hemodialysis every day. Mentation is much improved. No seizure-like activity. No focal symptoms. MRI of the brain reveals no signs of compressive lesion. CT angiogram of the head and neck reveals no signs of aneurysm. Ophthalmology consultation is reviewed. They report bilateral ptosis. CTA negative for aneurysm. MRI brain negative for stroke. EEG negative for seizure. Patient's mentation is much improved. He does have pneumonia. Objective - Vital Signs Vital signs: Vital Signs Temp 97.9 F 10/19/20 20:00 Pulse 70 10/19/20 20:00 Resp 15 10/19/20 20:00 BP 136/80 10/19/20 20:00 Pulse Ox 94 L 10/19/20 17:00 Intake & Output 10/19/20 10/19/20 10/20/20 06:59 18:59 06:59 Intake Total 1080 1000 Output Total 0 1000 Balance 1080 0 Weight 67.3 kg Intake: IV 1050 1000 Lacosamide IV 50 mg In 50 Sodium Chloride 0.9% 50 ml @ 100 mls/hr IVPB BID [facility] Rx#:[id number] Piperacillin-Tazobactam 3 100 100 .375 gm In Sodium Chloride 0.9% 100 ml @ 25 mls/hr IVPB Q12HR [facility] Rx #:[id number] Sodium Chloride 0.9% 1, 900 900 000 ml @ 75 mls/hr IV . [id number] [facility] Rx#:[id number] Oral 30 Output: Urine 0 0 Hemodialysis 1000 Other: # Bowel Movements 1 - Exam Patient is very much alert and awake. Patient states he is 64 years of age, and that he is in [facility] in [place]. He could not tell the month although he knows the year is 2020. Patient's speech and language functions are normal. No aphasia or dysarthria. Patient's pupils are round, sluggishly reacting. Face is symmetric and tongue protrudes to the midline. Muscle strength is normal in the arms and legs. No ataxia. Sensations are equal. - Labs CBC & Chem 7: 10/20/20 07:25 10/20/20 07:25 Labs: Abnormal Lab Results - Last 24 Hours (Table) 10/16/20 10/19/20 10/19/20 Range/Units 12:57 00:35 05:36 RBC 2.99 L (4.30-5.90) m/uL Hgb 9.6 L (13.0-17.5) gm/dL Hct 30.7 L (39.0-53.0) % MCV 102.7 H (80.0-100.0) fL Plt Count 135 L (150-450) k/uL Lymphocytes # 0.3 L (1.0-4.8) k/uL Potassium (3.5-5.1) mmol/L Chloride (98-107) mmol/L Carbon Dioxide (22-30) mmol/L BUN (9-20) mg/dL Creatinine (0.66-1.25) mg/dL Glucose (74-99) mg/dL POC Glucose (mg/dL) 127 H (75-99) mg/dL Alkaline Phosphatase (38-126) U/L Creatine Kinase (55-170) U/L Total Protein (6.3-8.2) g/dL Albumin (3.5-5.0) g/dL RBC Folate 1,289 H (280 - 791) ng/mL 10/19/20 10/19/20 10/19/20 Range/Units 05:36 05:36 06:14 RBC (4.30-5.90) m/uL Hgb (13.0-17.5) gm/dL Hct (39.0-53.0) % MCV (80.0-100.0) fL Plt Count (150-450) k/uL Lymphocytes # (1.0-4.8) k/uL Potassium 5.2 H (3.5-5.1) mmol/L Chloride 110 H (98-107) mmol/L Carbon Dioxide 20 L (22-30) mmol/L BUN 117 H* (9-20) mg/dL Creatinine 9.85 H* (0.66-1.25) mg/dL Glucose 149 H (74-99) mg/dL POC Glucose (mg/dL) 138 H (75-99) mg/dL Alkaline Phosphatase 32 L (38-126) U/L Creatine Kinase 543 H (55-170) U/L Total Protein 4.6 L (6.3-8.2) g/dL Albumin 2.3 L (3.5-5.0) g/dL RBC Folate (280 - 791) ng/mL 10/19/20 Range/Units 11:20 RBC (4.30-5.90) m/uL Hgb (13.0-17.5) gm/dL Hct (39.0-53.0) % MCV (80.0-100.0) fL Plt Count (150-450) k/uL Lymphocytes # (1.0-4.8) k/uL Potassium (3.5-5.1) mmol/L Chloride (98-107) mmol/L Carbon Dioxide (22-30) mmol/L BUN (9-20) mg/dL Creatinine (0.66-1.25) mg/dL Glucose (74-99) mg/dL POC Glucose (mg/dL) 110 H (75-99) mg/dL Alkaline Phosphatase (38-126) U/L Creatine Kinase (55-170) U/L Total Protein (6.3-8.2) g/dL Albumin (3.5-5.0) g/dL RBC Folate (280 - 791) ng/mL Microbiology - Last 24 Hours (Table) 10/15/20 14:21 Blood Culture - Preliminary Blood No Growth after 96 hours 10/15/20 14:05 Blood Culture - Preliminary Blood No Growth after 96 hours Assessment and Plan Assessment: * Toxic metabolic encephalopathy, likely due to missing hemodialysis. Patient is getting dialysis almost daily. Patient's mentation has remarkably improved. His well oriented. * ESRD on hemodialysis. * Right upper lobe consolidation, compatible with pneumonia. Patient on Zosyn. * Chronic anemia with neck close eye ptosis. * Myoclonic jerks, likely due to toxic metabolic dysfunction. Now resolved. * Hypertension Plan: * Patient's mentation has much improved. Still mild confusion. Patient's BUN is 117, creatinine 9.85. Patient is getting dialysis every day. * Chest x-ray from 10/17/2020 shows persistent right upper lobe consolidation, can be compatible with pneumonia. Follow-up exam recommended. * Ophthalmology has seen the patient for anisocoria. At present pupils seems equal. Possible tonic pupil. * CT angiography of the head is reported as no large vessel intracranial arterial occlusion, significant stenosis or aneurysm at change is seen. Incidental severe right upper lobe consolidation and small bilateral pleural effusion. While for the CT angiography of the neck it is reported as moderate atherosclerotic change at the bilateral carotid bifurcation resulting in mild, less than 40% ICA stenosis on both sides. There may be a moderate narrowing at the right vertebral artery origin. We will start aspirin 81 mg daily. * MRI the brain is reported as no MRI evidence for recent infarct. Background mild diffuse cerebral atrophy and moderate to advanced nonspecific white matter changes favor product of chronic small vessel ischemia and patient of this age. Other etiologies not entirely excluded. Increased fluid in the left mastoid air cells could reflect product of mastoiditis, correlate clinically. * MRI cervical spine was reported as suboptimal study. Multilevel degenerative changes as noted above. Spinal cord caliber and signal preserved. * Routine EEG: There is mild to moderate encephalopathy. There are no focal slowing, epileptiform discharges or seizures on the EEG. The tremors/twitching is without EEG correlate for seizures. * May discontinue Vimpat, once renal functions and other metabolic functions stabilizing patient's mentation goes back to normal. * B12 957, folate 15.3. TSH is 6.4. Will defer IM to address elevated TSH. Hemoglobin A1c 4.9. Sanchez virus PCR negative.
[2020-10-20 11:53] LABS: Glucose,Whole Blood 118 mg/dL (75-99)
[2020-10-20] MEDS: ASPIRIN 81 MG PO SCH (12:35)
--- NOTE | 2020-10-20 14:16 | P.PN ---
Subjective Progress Note Date: 10/20/20 64-year-old male presenting to emergency department by ambulance for dyspnea. Patient reportedly has been missing his dialysis and police have been called several times for well check. Patient has refused to go for dialysis. Patient was found today to be altered during will check. Patient is a poor historian. Patient does admit to being short of breath. EMS was concerned for possible fever. Initial vital signs: Blood pressure of 145/83, heart rate of 87, respiratory of 22, temperature of 103.3 Fahrenheit rectal and pulse ox of 99% room air. He had a repeated the temperature of 101.2. White blood cell is 8.9 and a repeat is 6 0.1 thousand which is considered within normal limits. He had the slight neutrophilic of 8.3. Chemistry panel is a sodium of 139 considered within normal limits, glucose of 120 which is slightly elevated but unremarkable, calcium initial one was 9.8 which is considered within normal limits. His initial potassium is 6.8 which is a significantly elevated. His creatinine on presentation to 18.6 which is above his baseline and he missed dialysis for a week. As well as the BUN is 175 on presentation the which is also elevated. AST of 108 which is slightly elevated but the ALT is 36 which is considered within normal limits. Phosphorus is 9.2 which is elevated and magnesium 3.1 which is also elevated. His potassium is trending down and the last one is 5.6. CT of the head is reported as degenerative and nonspecific white matter changes most typical of remote ischemic noted nodular prominence of basilar tip could be associated with a small aneurysm short segment follow-up MRA [place] of [place] recommended. Chest x-ray was reported as cardiomegaly and chronic parenchymal changes with the right upper long and medial right mid to lower lung mass likely conso lidation. Correlate for multi-lobe pneumonia. Follow-up studies after treatment advised to exclude underlying mass. Repeat chest x-ray on 10/16/2020 is reported as large right upper lobe consolidation can be compatible with pneumonia. Some improvement may be present. Continue to follow up to clearing is recommended that. 10/18/2020 patient seen and evaluated at bedside in ICU, patient is more awake and responsive this morning; remains confused Currently on room air with a pulse ox of 95%, no evidence of any respiratory distress Chest x-ray has been reviewed showing persistent right upper lobe consolidation; patient remains on IV antibiotics in form of Zosyn and vancomycin. His blood cultures have been negative; white count is 6.0, hemoglobin is 10.2, sodium is 144, potassium is 5.1, chloride is 108, CO2 is 18, B1 is 91, creatinine is 9.5. Patient is negative for COVID-19 MRI of the brain reveals no signs of compressive lesion. CT angiogram of the head and neck reveals no signs of aneurysm. Patient had hemodialysis treatment yesterday would removal of 1.5 L of fluid, his total CK is improving on today's labs, and is down to 1125. Patient remains on Decadron milligrams every 6 hours for papilledema, patient was seen by ophthalmology consultation was noted. Patient has been nothing by mouth, and he states he is hungry and would like to eat. His abdomen is soft, no tenderness tenderness, no nausea vomiting or diarrhea. Blood pressures are r unning a little higher, with the systolic in the 150s and 160s and diastolic in the 90s and 100s. We can restart some of his home medications including Coreg, Norvasc, Cardura. Neurology is on board for toxic metabolic encephalopathy; possibility of myasthenia gravis given bilateral ptosis and anisocoria; acetylcholine receptor antibodies has been ordered by neurology 10/19/2020 Patient is seen and evaluated in follow-up today continues to be closely monitored in the ICU. Patient's mentation continues to improve although extremely lethargic and is alert 2. Patient currently receiving hemodialysis for end-stage renal disease. Multiple consultations including nephrology and neurology following along with pipe coverer. Patient states he uses 2 L of oxygen in the outpatient setting and continues to do so although denies any worsening shortness of breath. Patient's chest x-ray today shows improving right upper lobe infiltrate with a possible developing left lower lobe. Blood pressure has been on the lower side and will continue to monitor. White blood count within normal limits at 5.2, hemoglobin is 9.6, sodium is 143 with a potassium of 5.2, BUN is 117 and creatinine is 9.85. Sugars being monitored closely and will continue with sliding scale if needed. Patient maintained on full liquids and tolerating although continues to have poor oral intake stating he does not have much of an appetite. Patient also continues on IV Zosyn with infectious disease following closely. Blood cultures have remained negative. Patient is afebrile. 10/20/2020 Patient is seen in follow-up currently working with PT/OT therapy at the bedside and continues to be quite weak and plans are for possible rehab that can accommodate hemodialysis as he continues on Monday/Monday/Monday schedule. Patient states he does live at home home and is unable to care for himself currently. Patient did receive hemodialysis yesterday with 1 L removal and doing well with nephrology following closely. Patient is tolerating oral diet and advance as tolerated. Possible speech reevaluation to further increase diet. Patient continues to have poor oral intake and requires encouragement. Patient is slightly more awake today. Continues on 2 L via nasal cannula and wean as tolerated. Patient also continues with IV Zosyn and blood cultures remain negative. Recommend continue aspiration precautions with head of the bed elevated 30-45. Patient continues on Decadron for possible papilledema and ophthalmology has been consulted and following. Neurology also following. Blood count within normal limits at 6.1 hemoglobin is 9.1, sodium is 144 with a potassium of 4.4. Appropriate home medications resumed. Review of systems: Constitutional: reports of fatigue Cardiovascular: No reports of chest pain or palpitations Respiratory: No reports of shortness of breath or cough GI: No reports of nausea, vomiting, or diarrhea, reports continued decreased appetite : No reports of dysuria or retention, patient is anuric Neurovascular: Reports generalized weakness All medications have been reviewed Physical exam: Gen: This is a 64-year-old male sitting up in the chair lethargic although awake but fatigues easily, oriented 2-3, no acute distress HEENT: Head is atraumatic, normocephalic. Pupils equal, round. Sclerae is anicteric. NECK: Supple. No JVD. No lymphadenopathy. No thyromegaly. LUNGS: Diminished breath sounds bilaterally with no wheezing or rhonchi noted. No intercostal retractions. HEART: Regular rate and rhythm. No murmur. ABDOMEN: Soft. Thin, Bowel sounds are present. No masses. No tenderness. EXTREMITIES: No pedal edema. No calf tenderness. NEUROLOGICAL: Patient is awake, alert and oriented x3. Diffusely weak Assessment and plan: Altered mental status secondary to acute metabolic encephalopathy with severe uremia: Patient has end-stage renal disease and had been missing hemodialysis for 1 week, nephrology following and currently continued on Monday /Monday/Monday schedule Papilledema involving the right optic nerve, possibly CVA with neurology following a neurological workup is in process, CT of the head and CTA of the head and neck are negative, MRI of the brain is negative for recent infarct with possible left mastoiditis not excluded, patient is continued on IV Decadron and ophthalmology following. CVA ruled out Acute rhabdomyolysis with elevated CK with possibility of unwitnessed fall and downtime at home Acute bilateral pneumonia with significant consolidation in the right upper lobe with possible aspiration pneumonia with possible sepsis, present on admission: Patient being followed by infectious disease and maintained on IV Zosyn End-stage renal disease on hemodialysis and nephrology following, reported one week without dialysis Acute metabolic acidosis secondary to chronic kidney disease Hyperkalemia secondary to chronic kidney disease and missed hemodialysis, improved Hypertension DVT prophylaxis Full code Plan: Patient continues on hemodialysis with nephrology along with pipe coverer and infectious disease following. Neurology also following. Patient underwent MRI of the brain which was negative for any evidence of recent infarct which also showed some background mild diffuse cerebral atrophy and moderate to advanced nonspecific white matter changes favoring chronic small vessel ischemic change with increased fluid signal of the left mastoid air cells that could reflect mastoiditis. Ophthalmology was consulted and following for possible papilledema. Patient is maintained on IV Decadron and will continue. Patient to continue on IV Zosyn therapy along with gentle IV hydration. Patient to continue with breathing inhalational treatments as well. Continue to Encourage oral intake as he is maintained on full liquids and not eating much. Advanced diet as tolerated and continue with aspiration precautions of head of the bed elevated 30-45 and supervision with meals. PT/OT therapy evaluated the patient recommending subacute rehab and social work following working on accepting facilities and accommodate hemodialysis as he continues with Monday/Monday/Monday schedule. [facility] Objective - Vital Signs Vital signs: Vital Signs Temp 97.7 F 10/20/20 08:00 Pulse 64 10/20/20 08:00 Resp 12 10/20/20 08:00 BP 141/82 10/20/20 08:00 Pulse Ox 94 L 10/20/20 08:00 Intake & Output 10/19/20 10/20/20 10/20/20 18:59 06:59 18:59 Intake Total 1000 600 Output Total 1000 0 Balance 0 600 Weight 68 kg Intake: IV 1000 600 Piperacillin-Tazobactam 3 100 .375 gm In Sodium Chloride 0.9% 100 ml @ 25 mls/hr IVPB Q12HR [facility] Rx #:[id number] Sodium Chloride 0.9% 1, 900 600 000 ml @ 75 mls/hr IV . [id number] [facility] Rx#:[id number] Output: Urine 0 0 Hemodialysis 1000 - Labs CBC & Chem 7: 10/20/20 07:25 10/20/20 07:25 Labs: Abnormal Lab Results - Last 24 Hours (Table) 10/16/20 10/19/20 10/19/20 Range/Units 12:57 05:36 11:20 RBC (4.30-5.90) m/uL Hgb (13.0-17.5) gm/dL Hct (39.0-53.0) % MCV (80.0-100.0) fL RDW (11.5-15.5) % Plt Count (150-450) k/uL Lymphocytes # (1.0-4.8) k/uL Chloride (98-107) mmol/L BUN (9-20) mg/dL Creatinine (0.66-1.25) mg/dL Glucose (74-99) mg/dL POC Glucose (mg/dL) 110 H (75-99) mg/dL Creatine Kinase 543 H (55-170) U/L RBC Folate 1,289 H (280 - 791) ng/mL 10/19/20 10/20/20 10/20/20 Range/Units 23:54 06:00 07:25 RBC 2.87 L (4.30-5.90) m/uL Hgb 9.1 L (13.0-17.5) gm/dL Hct 28.8 L (39.0-53.0) % MCV 100.6 H (80.0-100.0) fL RDW 15.6 H (11.5-15.5) % Plt Count 131 L (150-450) k/uL Lymphocytes # 0.4 L (1.0-4.8) k/uL Chloride (98-107) mmol/L BUN (9-20) mg/dL Creatinine (0.66-1.25) mg/dL Glucose (74-99) mg/dL POC Glucose (mg/dL) 140 H 135 H (75-99) mg/dL Creatine Kinase (55-170) U/L RBC Folate (280 - 791) ng/mL 10/20/20 Range/Units 07:25 RBC (4.30-5.90) m/uL Hgb (13.0-17.5) gm/dL Hct (39.0-53.0) % MCV (80.0-100.0) fL RDW (11.5-15.5) % Plt Count (150-450) k/uL Lymphocytes # (1.0-4.8) k/uL Chloride 111 H (98-107) mmol/L BUN 78 H (9-20) mg/dL Creatinine 6.43 H (0.66-1.25) mg/dL Glucose 142 H (74-99) mg/dL POC Glucose (mg/dL) (75-99) mg/dL Creatine Kinase (55-170) U/L RBC Folate (280 - 791) ng/mL Microbiology - Last 24 Hours (Table) 10/15/20 14:21 Blood Culture - Preliminary Blood No Growth after 96 hours 10/15/20 14:05 Blood Culture - Preliminary Blood No Growth after 96 hours
[2020-10-20 16:43] LABS: Glucose,Whole Blood 129 mg/dL (75-99)
[2020-10-20] MEDS: SEVELAMER 800 MG TAB PO SCH ×2 (17:11→18:45)
[2020-10-20] MEDS ORDERED: SEVELAMER 800 MG TAB PO SCH (17:30)
--- NOTE | 2020-10-20 17:30 | PN ---
PROGRESS NOTE Patient is seen for followup for end-stage renal disease. This morning he is comfortable, awake, not in any acute distress. The patient has been confused at times according to nursing staff. PHYSICAL EXAMINATION: On examination today, blood pressure 141/82, heart rate of 64 per minute, he is afebrile. Examination of the heart S1, S2. Examination of lungs, decreased breath sounds at the bases. Abdomen is soft, nontender. Examination of lower extremities shows no significant edema. BOX PACKER exam shows patient is moving all 4 extremities. He has been confused at times as per nursing staff. LAB: Show hemoglobin 9.1, sodium 144, potassium 4.4, chloride 111, BUN 78, serum creatinine 6.43. ASSESSMENT: 1. End-stage renal disease on hemodialysis on a Monday, , Monday schedule. However, patient is currently on a Monday, Monday, Monday schedule. We will dialyze him tomorrow and plan for another treatment on to get him back on his regular schedule. 2. Hypertension. Continue current antihypertensive regimen. Blood pressure is controlled. 3. Mental status changes associated with some degree of uremia, currently improved. 4. Hyperkalemia on admission, now resolved. 5. Right lung pneumonia, maintained on antibiotics. 6. Chronic kidney disease mineral bone disorder. The patient is maintained on Renvela. He is currently not eating much. He is maintained on five Renvela's t.i.d. with meals. This dose was increased as at home the patient takes two tablets t.i.d. The patient would likely need another binder added. 7. Mental status changes possibly related to toxic metabolic encephalopathy, currently improving. PLAN: Hemodialysis in a.m. and then will dialyze the patient again on to get him back on his regular outpatient schedule. MMODL / IJN: [id number] /
--- NOTE | 2020-10-20 22:26 | PN ---
PROGRESS NOTE DATE OF SERVICE: 10/20/2020 REASON FOR FOLLOWUP: Pneumonia. INTERVAL HISTORY: The patient is afebrile. The patient is more awake and alert. He is breathing comfortably. Denies any chest pain, no cough. No nausea. No diarrhea. PHYSICAL EXAMINATION: Blood pressure 122/76, pulse of 73, temperature 98. He is 93% on 2 L nasal cannula. General description is a middle-aged male lying in bed in no distress. Respiratory system: Unlabored breathing, decreased breath sounds at the base. No wheeze. Heart: S1, S2. Regular rate and rhythm. Abdomen soft, no tenderness. LABS: Hemoglobin 9.1, white count 6.1, BUN of 78, creatinine 6.43. Blood culture has been negative. DIAGNOSTIC IMPRESSION AND PLAN: Patient with right lower lobe pneumonia, possible aspiration etiology and responding to Zosyn that will be continued, transition to oral on discharge. Continue supportive care. MMODL / IJN: [id number] /
[2020-10-20 23:47] LABS: Glucose,Whole Blood 197 mg/dL (75-99)
[2020-10-21 04:09] LABS: Calcium 9.5 mg/dL (8.4-10.2); Potassium 4.5 mmol/L (3.5-5.1)
[2020-10-21] MEDS: carvediloL 12.5 MG TAB PO SCH ×2 (06:33→20:45)
[2020-10-21] MEDS: SEVELAMER 800 MG TAB PO SCH ×4 (06:33→17:12)
[2020-10-21 06:36] LABS: Glucose,Whole Blood 165 mg/dL (75-99)
--- NOTE | 2020-10-21 09:02 | P.PN ---
Subjective Progress Note Date: 10/20/20 10/20/2020: Patient is sitting comfortably in the recliner. Patient's son friend was also present. Patient offers no complaints. 10/19/2020: Patient was seen for a follow-up. Patient initially seen by Dr. Joaquin Camacho. Please refer to his note for details. Patient is a 64-year-old male with history of end-stage renal disease on hemodialysis, who missed his dialysis for one week. Patient came with altered mental status, unequal pupil, enlarged on the right but slightly reactive. Patient is receiving hemodialysis every day. Mentation is much improved. No seizure-like activity. No focal symptoms. MRI of the brain reveals no signs of compressive lesion. CT angiogram of the head and neck reveals no signs of aneurysm. Ophthalmology consultation is reviewed. They report bilateral ptosis. CTA negative for aneurysm. MRI brain negative for stroke. EEG negative for seizure. Patient's mentation is much improved. He does have pneumonia. Objective - Vital Signs Vital signs: Vital Signs Temp 97.7 F 10/20/20 08:00 Pulse 60 10/20/20 14:00 Resp 17 10/20/20 14:00 BP 122/76 10/20/20 14:00 Pulse Ox 93 L 10/20/20 14:00 Intake & Output 10/19/20 10/20/20 10/20/20 18:59 06:59 18:59 Intake Total 1000 600 480 Output Total 1000 0 Balance 0 600 480 Weight 68 kg Intake: IV 1000 600 480 Piperacillin-Tazobactam 3 100 .375 gm In Sodium Chloride 0.9% 100 ml @ 25 mls/hr IVPB Q12HR [facility] Rx #:[id number] Sodium Chloride 0.9% 1, 900 600 480 000 ml @ 75 mls/hr IV . [id number] [facility] Rx#:[id number] Output: Urine 0 0 Hemodialysis 1000 - Exam Patient is very much alert and awake. Speech and language functions are normal. Patient states it is February and the year is 2020. No aphasia or dysarthria. Patient's pupils are mostly equal, round, briskly reacting. The left pupil at times appears minimally larger, but on repeated testing appears equal and both are equally reactive. Face is symmetric and tongue protrudes to the midline. Patient has significant edema of the left upper limb, which is heavier than the right. There is presence of the AV fistula. Patient has mild peripheral edema. On muscle strength testing, (right/left) deltoid 5/5-, biceps 5/5, collar band creaser is 5/5-. Hip flexion 5/5-, ankle dorsiflexion is 5/5. Patient has ataxia for ecvdyw-co-slvc testing on the left. Clarification from the note from yesterday. Current muscle strength examination is more reliable, as compared to yesterday, as patient was more cooperating with exam. - Labs CBC & Chem 7: 10/20/20 07:25 10/21/20 03:18 Labs: Abnormal Lab Results - Last 24 Hours (Table) 10/19/20 10/20/20 10/20/20 Range/Units 23:54 06:00 07:25 RBC 2.87 L (4.30-5.90) m/uL Hgb 9.1 L (13.0-17.5) gm/dL Hct 28.8 L (39.0-53.0) % MCV 100.6 H (80.0-100.0) fL RDW 15.6 H (11.5-15.5) % Plt Count 131 L (150-450) k/uL Lymphocytes # 0.4 L (1.0-4.8) k/uL Chloride (98-107) mmol/L BUN (9-20) mg/dL Creatinine (0.66-1.25) mg/dL Glucose (74-99) mg/dL POC Glucose (mg/dL) 140 H 135 H (75-99) mg/dL Phosphorus (2.5-4.5) mg/dL 10/20/20 10/20/20 10/20/20 Range/Units 07:25 07:25 11:52 RBC (4.30-5.90) m/uL Hgb (13.0-17.5) gm/dL Hct (39.0-53.0) % MCV (80.0-100.0) fL RDW (11.5-15.5) % Plt Count (150-450) k/uL Lymphocytes # (1.0-4.8) k/uL Chloride 111 H (98-107) mmol/L BUN 78 H (9-20) mg/dL Creatinine 6.43 H (0.66-1.25) mg/dL Glucose 142 H (74-99) mg/dL POC Glucose (mg/dL) 118 H (75-99) mg/dL Phosphorus 7.8 H (2.5-4.5) mg/dL 10/20/20 Range/Units 16:41 RBC (4.30-5.90) m/uL Hgb (13.0-17.5) gm/dL Hct (39.0-53.0) % MCV (80.0-100.0) fL RDW (11.5-15.5) % Plt Count (150-450) k/uL Lymphocytes # (1.0-4.8) k/uL Chloride (98-107) mmol/L BUN (9-20) mg/dL Creatinine (0.66-1.25) mg/dL Glucose (74-99) mg/dL POC Glucose (mg/dL) 129 H (75-99) mg/dL Phosphorus (2.5-4.5) mg/dL Microbiology - Last 24 Hours (Table) 10/15/20 14:21 Blood Culture - Preliminary Blood No Growth after 120 hours 10/15/20 14:05 Blood Culture - Preliminary Blood No Growth after 120 hours Assessment and Plan Assessment: * Toxic metabolic encephalopathy, likely due to missing hemodialysis. Patient is getting dialysis almost daily. Patient's mentation has remarkably improved. Patient still gets confused, mildly encephalopathic. * ESRD on hemodialysis. * Right upper lobe consolidation, compatible with pneumonia. Patient on Zosyn. * Chronic anemia. * Myoclonic jerks, likely due to toxic metabolic dysfunction. Now resolved. * Hypertension Plan: * Patient's mentation has much improved. Still mild confusion. Patient's BUN is 78, creatinine 6.43. Patient is getting dialysis every day. * Chest x-ray from 10/17/2020 shows persistent right upper lobe consolidation, can be compatible with pneumonia. Follow-up exam recommended. * Ophthalmology has seen the patient for anisocoria. At present pupils are equal. Possible ?tonic pupil. * CT angiography of the head is reported as no large vessel intracranial arterial occlusion, significant stenosis or aneurysm at change is seen. Incidental severe right upper lobe consolidation and small bilateral pleural effusion. While for the CT angiography of the neck it is reported as moderate atherosclerotic change at the bilateral carotid bifurcation resulting in mild, less than 40% ICA stenosis on both sides. There may be a moderate narrowing at the right vertebral artery origin. We will start aspirin 81 mg daily. * MRI the brain 10/16/2020 is reported as no MRI evidence for recent infarct. Background mild diffuse cerebral atrophy and moderate to advanced nonspecific white matter changes favor product of chronic small vessel ischemia and patient of this age. Other etiologies not entirely excluded. Increased fluid in the left mastoid air cells could reflect product of mastoiditis, correlate clinically. * 2-D echo 10/16/2020 shows severe concentric LVH, EF is low normal between 50- 55%. Right ventricle is mild to moderately enlarged. Left atrium is markedly dilated. Moderate to severe MR, moderate TR. Moderate, generalized pericardial effusion. Would defer critical care to address echo findings. * MRI cervical spine was reported as suboptimal study. Multilevel degenerative changes as noted above. Spinal cord caliber and signal preserved. * Routine EEG: There is mild to moderate encephalopathy. There are no focal slowing, epileptiform discharges or seizures on the EEG. The tremors/twitching is without EEG correlate for seizures. * May discontinue Vimpat, once renal functions and other metabolic functions have stabilized, and patient's mentation goes back to normal. * B12 957, folate 15.3. TSH is 6.4. Will defer IM to address elevated TSH. Hemoglobin A1c 4.9. Sanchez virus PCR negative.
--- NOTE | 2020-10-21 09:14 | P.PN ---
Subjective Progress Note Date: 10/21/20 Principal diagnosis: Acute on chronic renal failure. This is a 64-year-old white male with history of chronic renal failure, end- stage renal disease, patient is on hemodialysis normally Monday and Monday. Patient has always been very compliant with hemodialysis treatments and he always showed up to the dialysis unit for hemodialysis on a regular basis. However over the last week, patient has not been showing up for his hemodialysis, and a wellness check on the patient was done, and he was found use, short of breath, and experiencing episodes of myoclonic jerks, and extremely weak. Patient was brought into the ER, and he was found to have right upper lobe pneumonia possibly even a left lower lobe infiltrate, patient is also found to have profound mental status change with profound weakness, myoclonic jerking, anisocoria with right pupil much more dilated than the left pupil. Patient is also found to be extremely uremic and encephalopathic. Workup in the ER included CT of the brain which was nondiagnostic except for slight asymmetry of the optic nerve on the right. Nonspecific white matter changes were noted. His labs showed no evidence of leukocytosis. He was hyperkalemic with a potassium as high as 6.8 acidotic with bicarb of 18 uremic with a BUN of 175 and creatinine of 18.65. COVID-19 PCR was negative. ABG on BiPAP showed a pO2 of 143 pCO2 of 32 pH of 7.43. And this was on IPAP of 12 and EPAP of 6 and FiO2 of 40%. Angiography CT of the head and neck is pending. Patient was admitted to the ICU, and I was asked to see him on consultation. As soon as I evaluated the patient, recommended stat neurological consultation, also recommended changing his antibiotics to vancomycin and Zosyn. Cultures are pending. Patient was reevaluated today on 10/17/2020, remains in the ICU, remains on BiPAP with IPAP of 12 and EPAP of 6 FiO2 40%, remains on daily hemodialysis, he is receiving hemodialysis this morning. Continues to have significant uremia creatinine remains 12.28. Patient will be dialyzed today and the plan is to remove 3 L. Patient did not get a lumbar puncture mostly because of his elevated PTT. Remains on IV fluid at 0.9 normal saline 1 50 mL per hour. CPK is improving, but remains over 2000. CBC is relatively normal PTT is 42 potassium is 5.5 BUN 105 creatinine 12.28. CPK 2226. Patient remains on updrafts, he is also on anti-seizure therapy, Decadron, Zosyn empirically, chest x-ray continues to show right upper lobe pneumonia. On 10/18/2020 patient seen in follow-up in the intensive care unit, he is more awake on today's exam, however still confused, but not agitated, less shaky, he is breathing comfortably, he is currently on room air with a pulse ox of 95%, no evidence of any respiratory distress, he is on IV fluids 0.9 at 150 ML per hour, no other drips. Today's chest x-ray has been reviewed showing persistent right upper lobe consolidation. Current antibiotic coverage is with Zosyn and v ancomycin. His blood cultures have been negative, today's labs have been reviewed. His white count is 6.0, hemoglobin is 10.2, sodium is 144, potassium is 5.1, chloride is 108, CO2 is 18, B1 is 91, creatinine is 9.5. Patient had hemodialysis treatment yesterday would removal of 1.5 L of fluid, his total CK is improving on today's labs, and is down to 1125. Patient was also tested for COVID-19 was found to be negative, his vital signs have been stable, his last lactic acid from couple days ago was down to 1.7. At no fever or chills in the last 24 hours. Pupils are a lot more reactive today, his right pupil is improved in size, and is 3 mm, his left pupil is 2 mm. And also remains on De cadron milligrams every 6 hours for papilledema, patient was seen by ophthalmology consultation was noted. Patient has been nothing by mouth, and he states he is hungry and would like to eat. His abdomen is soft, no tenderness tenderness, no nausea vomiting or diarrhea. Blood pressures are running a little higher, with the systolic in the 150s and 160s and diastolic in the 90s and 100s. We can restart some of his home medications including Coreg, Norvasc, Cardura. On 10/19/2009 with patient seen in follow-up in intensive care unit, he is resting comfortably in bed, he is awake, he is oriented to self, but not place or time. No garbled speech, no focal neurological deficits. He is moving all 4 extremities, he is generally weak, appears to be in no acute distress, no sign of any shortness of breath or cough, today's chest x-ray has been reviewed showing improving right upper lobe infiltrate, and developing left lower lobe infiltrate. He is on 2 L of oxygen with pulse ox of 98%, as been afebrile, hemodynamically his been stable, he continues on Zosyn for antibiotic coverage. Cultures remain negative, patient's last hemodialysis session was on 10/17/2020 would removal of 1.8 L of fluid. Patient remains on dexamethasone 4 mg twice a day, remains on Levaquin some 9, remains on breathing treatments, antibiotics, and IV fluids with 0.9 normal saline at a rate of 75 ML per hour. No Acute issues overnight. Today's labs have been reviewed, white blood cell count is 5.2, hemoglobin is 9.6, potassium is 5.2, chloride is 110, CO2 is 20, B1 is 117, creatinine is 9.85. Patient is anuric, anticipate hemodialysis today, nephrology is following. His CPKs were improving on yesterday's labs and or down to 1125, obtain a follow-up CK today. His had no nausea or vomiting or diarrhea. His oral intake has been poor. The patient has been tolerating full liquid diet. Progress note dated 10/20/2020. This is a 64-year-old male who is again seen in the intensive care unit, room 253. The patient is waiting for a bed out on the general medical floor, with telemetry. Currently, he's on 2 L nasal cannula. He is getting saline at 50 mL an hour. He did have hemodialysis yesterday, with 1 L being removed. Clinically he is feeling well. He had an uneventful night according to the nurse. No labs from today as yet. Blood cultures are negative. Progress note dated 10/21/2020. 64-year-old male, again seen in the intensive care unit, room 253. The patient is either on room air, or when he sleeping, on 2 L. The patient's getting saline at KVO which she does not need. I've asked the nurse to discontinue that. The patient is doing well otherwise. We'll discontinue Zosyn and Decadron. His IV as mentioned above will be discontinued as well. The patient can be transferred to the general medical floor with telemetry. Current lab data includes a sodium 145, potassium 4.5, chlorides 110, CO2 23, anion gap 12, BUN 96, creatinine 7.62. No chest x-ray today. Objective - Vital Signs Vital signs: Vital Signs Temp 96 F L 10/21/20 02:00 Pulse 48 L 10/21/20 02:00 Resp 9 L 10/21/20 02:00 BP 145/83 10/21/20 02:00 Pulse Ox 95 10/21/20 02:00 Intake & Output 10/20/20 10/21/20 10/21/20 18:59 06:59 18:59 Intake Total 480 180 Output Total 0 Balance 480 180 Weight 66.4 kg Intake: IV 480 180 Sodium Chloride 0.9% 1, 480 180 000 ml @ 75 mls/hr IV . [id number] [facility] Rx#:[id number] Output: Urine 0 - Exam No acute distress, oriented 3. Currently on 2 L nasal cannula. Saturations are 95%. HEENT examination is grossly unremarkable. Neck supple. Full range of motion. No adenopathy thyromegaly or neck vein distention. Cardiovascular examination reveals regular rhythm rate. S1-S2 normal. No S3 or S4. No discernible murmur noted. Heart sounds are distant. Heart rate 52 bpm. Lungs reveal scattered bilateral rhonchi. Mild bibasilar crackles. Breath sounds equal bilaterally. No wheezes. Abdomen soft bowel sounds are heard. No masses or tenderness. Extremities are intact. No cyanosis or clubbing. Mild diffuse edema is appreciated.. Skin is without rash or lesion. Neurologic examination is brief but nonfocal. - Labs CBC & Chem 7: 10/20/20 07:25 10/21/20 03:18 Labs: Abnormal Lab Results - Last 24 Hours (Table) 10/20/20 10/20/20 10/20/20 Range/Units 07:25 11:52 16:41 Chloride (98-107) mmol/L BUN (9-20) mg/dL Creatinine (0.66-1.25) mg/dL Glucose (74-99) mg/dL POC Glucose (mg/dL) 118 H 129 H (75-99) mg/dL Phosphorus 7.8 H (2.5-4.5) mg/dL 10/20/20 10/21/20 10/21/20 Range/Units 23:45 03:18 06:35 Chloride 110 H (98-107) mmol/L BUN 96 H (9-20) mg/dL Creatinine 7.62 H* (0.66-1.25) mg/dL Glucose 127 H (74-99) mg/dL POC Glucose (mg/dL) 197 H 165 H (75-99) mg/dL Phosphorus (2.5-4.5) mg/dL Microbiology - Last 24 Hours (Table) 10/15/20 14:21 Blood Culture - Preliminary Blood No Growth after 120 hours 10/15/20 14:05 Blood Culture - Preliminary Blood No Growth after 120 hours Assessment and Plan Assessment: #1. Altered mental status, secondary to acute metabolic encephalopathy with severe uremia, with a known history of end-stage renal disease, had missed hemodialysis for one week prior to presentation. #2. Possible CVA with encephalopathy, profound weakness in myoclonic jerks as well as in the subchorionic/unequal pupillary sizes. #3. Acute rhabdomyolysis with significantly elevated CPK, related to possible fall at home, and inability to ambulate. #4. Acute bilateral pneumonia with significant consolidation in the right upper lobe, strongly suspect aspiration pneumonia, currently covered with Zosyn and vancomycin. #5. Possible sepsis with pneumonia being the primary source. #6. End-stage renal disease on hemodialysis. #7. History of hypertension. #8. Acute metabolic acidosis secondary to acute on chronic kidney disease. #9. Hyperkalemia secondary to acute on chronic kidney disease, and missed hemodialysis, improved. #10. Papilledema involving the right optic nerve, possible CVA, ophthalmology is following. She is currently on Decadron. CT had and CTA head and neck were unremarkable, MRI of the brain with no evidence of recent infarct. #11. Myoclonus, EEG showed background slowing, suggestive of mild to moderate encephalopathy, no evidence of epileptiform discharges. Plan: Plan dated 10/20/2020. The patient is stable. The patient can be transferred out of the intensive care unit. The patient did have hemodialysis yesterday, and 1 L was removed. The patient remains on 2 L nasal cannula. That can probably be weaned off as well. We will continue to follow. Prognosis is guarded. Plan dated 10/21/2020. Currently, the patient's doing well. The patient can be transferred out to the general medical floor with telemetry. We are going to discontinue the antibiotic, i.e. Zosyn, and Decadron. We'll also DC the IV fluids. The patient otherwise is doing reasonably well. Most of the time, the patient's on room air. He does have some mild desaturation when he sleeps at nighttime. We will continue to follow make recommendations where appropriate. Time with Patient: Less than 30
[2020-10-21] MEDS: ASPIRIN 81 MG PO SCH (09:17)
[2020-10-21] MEDS: DOXAZOSIN 2 MG TAB PO SCH ×2 (09:17→21:16)
[2020-10-21] MEDS: cloNIDine HCL 0.1 MG TAB PO SCH ×3 (09:17→21:15)
[2020-10-21] MEDS: FOLIC ACID-VIT B COMPLEX-VIT C 1 CAP PO SCH (09:20)
[2020-10-21] MEDS: amLODIPine 10 MG TAB PO SCH (09:21)
[2020-10-21 11:34] LABS: Glucose,Whole Blood 107 mg/dL (75-99)
[2020-10-21] MEDS: PATIROMER CALCIUM SORBITEX PO SCH (11:49)
[2020-10-21] MEDS: PIPERACILLIN-TAZOBACTAM 3.375 GM in SODIUM CHLORIDE 0.9% 100 ML IVPB SCH (12:08)
--- NOTE | 2020-10-21 13:23 | PN ---
PROGRESS NOTE The patient is seen for followup for end-stage renal disease. This morning he is awake, comfortable, not in any acute distress. The patient has not had any further ectopies. He is currently seen on dialysis. He is tolerating his treatment well. PHYSICAL EXAMINATION: Blood pressure 145/83, heart rate 53 per minute. He is afebrile. Examination of the heart S1, S2. Examination of the lungs, bilateral breath sounds are heard. Abdomen is soft, nontender. Examination of lower extremities shows no evidence of edema [employer]IAN exam grossly intact. LAB: Show sodium 145, potassium 4.5, chloride 110, BUN 96, serum creatinine 7.62. ASSESSMENT: 1. End-stage renal disease, on hemodialysis on a Monday, , Monday schedule, currently maintained on a Monday, Monday, Monday schedule. We will dialyze him again tomorrow to get him back on the TTS schedule. 2. Sepsis from pneumonia, currently improving. 3. Hyperkalemia, now improved. 4. Encephalopathy from uremia and sepsis, now improved. PLAN: Repeat hemodialysis in a.m. Encourage increased oral intake. MMODL / IJN: [id number] /
[2020-10-21] MEDS: LACOSAMIDE IV 50 MG in SODIUM CHLORIDE 0.9% 50 ML IVPB SCH ×2 (13:30→21:24)
--- NOTE | 2020-10-21 13:51 | PN ---
PROGRESS NOTE DATE OF SERVICE: 10/21/2020. REASON FOR FOLLOWUP: Aspiration pneumonia. INTERVAL HISTORY: Patient is afebrile. The patient is breathing more comfortably. Denies having any chest pain or cough. No abdominal pain or diarrhea. PHYSICAL EXAMINATION: Blood pressure 145/83, pulse 40, temperature 96, he is 95 percent on 2 L nasal cannula. General description is a middle-aged male up in the bed in no distress. Respiratory system: Unlabored breathing, clear to auscultation anteriorly. Heart S1-S2 regular rate and rhythm. Abdomen: Soft, no tenderness. LABS: BUN of 96, creatinine 7.62. Blood culture negative so far. Sputum was not collected. DIAGNOSTIC IMPRESSION AND PLAN: Patient admitted to the hospital with mental status changes in this patient who did have a right upper lobe pneumonia concern for possible aspiration etiology, the patient to be continued on Zosyn, transition to oral antibiotic on discharge and monitor clinical course closely. MMODL / IJN: [id number] /
--- NOTE | 2020-10-21 14:14 | P.PN ---
Subjective Progress Note Date: 10/21/20 64-year-old male presenting to emergency department by ambulance for dyspnea. Patient reportedly has been missing his dialysis and police have been called several times for well check. Patient has refused to go for dialysis. Patient was found today to be altered during will check. Patient is a poor historian. Patient does admit to being short of breath. EMS was concerned for possible fever. Initial vital signs: Blood pressure of 145/83, heart rate of 87, respiratory of 22, temperature of 103.3 Fahrenheit rectal and pulse ox of 99% room air. He had a repeated the temperature of 101.2. White blood cell is 8.9 and a repeat is 6 0.1 thousand which is considered within normal limits. He had the slight neutrophilic of 8.3. Chemistry panel is a sodium of 139 considered within normal limits, glucose of 120 which is slightly elevated but unremarkable, calcium initial one was 9.8 which is considered within normal limits. His initial potassium is 6.8 which is a significantly elevated. His creatinine on presentation to 18.6 which is above his baseline and he missed dialysis for a week. As well as the BUN is 175 on presentation the which is also elevated. AST of 108 which is slightly elevated but the ALT is 36 which is considered within normal limits. Phosphorus is 9.2 which is elevated and magnesium 3.1 which is also elevated. His potassium is trending down and the last one is 5.6. CT of the head is reported as degenerative and nonspecific white matter changes most typical of remote ischemic noted nodular prominence of basilar tip could be associated with a small aneurysm short segment follow-up MRA habematole[facility] of [place] recommended. Chest x-ray was reported as cardiomegaly and chronic parenchymal changes with the right upper long and medial right mid to lower lung mass likely conso lidation. Correlate for multi-lobe pneumonia. Follow-up studies after treatment advised to exclude underlying mass. Repeat chest x-ray on 10/16/2020 is reported as large right upper lobe consolidation can be compatible with pneumonia. Some improvement may be present. Continue to follow up to clearing is recommended that. 10/18/2020 patient seen and evaluated at bedside in ICU, patient is more awake and responsive this morning; remains confused Currently on room air with a pulse ox of 95%, no evidence of any respiratory distress Chest x-ray has been reviewed showing persistent right upper lobe consolidation; patient remains on IV antibiotics in form of Zosyn and vancomycin. His blood cultures have been negative; white count is 6.0, hemoglobin is 10.2, sodium is 144, potassium is 5.1, chloride is 108, CO2 is 18, B1 is 91, creatinine is 9.5. Patient is negative for COVID-19 MRI of the brain reveals no signs of compressive lesion. CT angiogram of the head and neck reveals no signs of aneurysm. Patient had hemodialysis treatment yesterday would removal of 1.5 L of fluid, his total CK is improving on today's labs, and is down to 1125. Patient remains on Decadron milligrams every 6 hours for papilledema, patient was seen by ophthalmology consultation was noted. Patient has been nothing by mouth, and he states he is hungry and would like to eat. His abdomen is soft, no tenderness tenderness, no nausea vomiting or diarrhea. Blood pressures are r unning a little higher, with the systolic in the 150s and 160s and diastolic in the 90s and 100s. We can restart some of his home medications including Coreg, Norvasc, Cardura. Neurology is on board for toxic metabolic encephalopathy; possibility of myasthenia gravis given bilateral ptosis and anisocoria; acetylcholine receptor antibodies has been ordered by neurology 10/19/2020 Patient is seen and evaluated in follow-up today continues to be closely monitored in the ICU. Patient's mentation continues to improve although extremely lethargic and is alert 2. Patient currently receiving hemodialysis for end-stage renal disease. Multiple consultations including nephrology and neurology following along with club concierge. Patient states he uses 2 L of oxygen in the outpatient setting and continues to do so although denies any worsening shortness of breath. Patient's chest x-ray today shows improving right upper lobe infiltrate with a possible developing left lower lobe. Blood pressure has been on the lower side and will continue to monitor. White blood count within normal limits at 5.2, hemoglobin is 9.6, sodium is 143 with a potassium of 5.2, BUN is 117 and creatinine is 9.85. Sugars being monitored closely and will continue with sliding scale if needed. Patient maintained on full liquids and tolerating although continues to have poor oral intake stating he does not have much of an appetite. Patient also continues on IV Zosyn with infectious disease following closely. Blood cultures have remained negative. Patient is afebrile. 10/20/2020 Patient is seen in follow-up currently working with PT/OT therapy at the bedside and continues to be quite weak and plans are for possible rehab that can accommodate hemodialysis as he continues on Monday/Monday/Monday schedule. Patient states he does live at home home and is unable to care for himself currently. Patient did receive hemodialysis yesterday with 1 L removal and doing well with nephrology following closely. Patient is tolerating oral diet and advance as tolerated. Possible speech reevaluation to further increase diet. Patient continues to have poor oral intake and requires encouragement. Patient is slightly more awake today. Continues on 2 L via nasal cannula and wean as tolerated. Patient also continues with IV Zosyn and blood cultures remain negative. Recommend continue aspiration precautions with head of the bed elevated 30-45. Patient continues on Decadron for possible papilledema and ophthalmology has been consulted and following. Neurology also following. Blood count within normal limits at 6.1 hemoglobin is 9.1, sodium is 144 with a potassium of 4.4. Appropriate home medications resumed. 10/21/2020 Patient is seen in follow-up this morning continues to be in the ICU and awaiting overflow bed with no acute overnight issues noted. Patient continues on IV Zosyn and we'll transition to oral antibiotics on discharge. Patient is tolerating diet and continues to have poor oral intake although is eating with no difficulties. Patient currently receiving hemodialysis as he is normally scheduled on Monday/Monday/Monday. Mentation much improved although patient is lethargic but answering and responding to questions and commands appropriately. Social work following for possible placement at [facility] and awaiting an accepting facility. Sodium is 145 with a potassium of 4.5 current creatinine is 7.62 and again receiving hemodialysis today. Review of systems: Constitutional: reports of fatigue Cardiovascular: No reports of chest pain or palpitations Respiratory: No reports of shortness of breath or cough GI: No reports of nausea, vomiting, or diarrhea, reports continued decreased appetite : No reports of dysuria or retention, patient is anuric Neurovascular: Reports generalized weakness All medications have been reviewed Physical exam: Gen: This is a 64-year-old male sitting up in the bed awake but fatigues easily, oriented 3, no acute distress HEENT: Head is atraumatic, normocephalic. Pupils equal, round. Sclerae is anic teric. NECK: Supple. No JVD. No lymphadenopathy. No thyromegaly. LUNGS: Diminished breath sounds bilaterally with no wheezing or rhonchi noted. No intercostal retractions. HEART: Regular rate and rhythm. No murmur. ABDOMEN: Soft. Thin, Bowel sounds are present. No masses. No tenderness. EXTREMITIES: No pedal edema. No calf tenderness. NEUROLOGICAL: Patient is awake, alert and oriented x3. Diffusely weak Assessment and plan: -Altered mental status secondary to acute metabolic encephalopathy with severe uremia: Patient has end-stage renal disease and had been missing hemodialysis for 1 week, nephrology following and currently continued on Monday/Monday/Monday schedule, improved -Papilledema involving the right optic nerve, possibly CVA with neurology following a neurological workup is in process, CT of the head and CTA of the head and neck are negative, MRI of the brain is negative for recent infarct with possible left mastoiditis not excluded, patient is continued on IV Decadron and ophthalmology following. CVA ruled out -Acute rhabdomyolysis with elevated CK with possibility of unwitnessed fall and downtime at home, improved -Acute bilateral pneumonia with significant consolidation in the right upper lobe with possible aspiration pneumonia with possible sepsis, present on admission: Patient being followed by infectious disease and maintained on IV Zosyn, we'll transition to oral antibiotics on discharge -End-stage renal disease on hemodialysis and nephrology following, reported one week without dialysis -Acute metabolic acidosis secondary to chronic kidney disease -Hyperkalemia secondary to chronic kidney disease and missed hemodialysis, improved -Hypertension -DVT prophylaxis -Full code Plan: Patient continues on hemodialysis with nephrology along with club concierge and infectious disease following. Neurology also following. Patient underwent MRI of the brain which was negative for any evidence of recent infarct which also showed some background mild diffuse cerebral atrophy and moderate to advanced nonspecific white matter changes favoring chronic small vessel ischemic change with increased fluid signal of the left mastoid air cells that could reflect mastoiditis. Ophthalmology was consulted and following for possible papilledema. Patient is maintained on IV Decadron and will continue. Patient to continue on IV Zosyn therapy along with gentle IV hydration. Patient to continue with breathing inhalational treatments as well. Continue to Encourage oral intake as he is tolerating regular diet although not eating much. continue with aspiration precautions of head of the bed elevated 30-45 and supervision with meals. PT/OT therapy evaluated the patient recommending subacute rehab and social work following working on accepting facilities and accommodate hemodialysis as he continues with Monday/Monday/Monday schedule. Patient aggie iting transfer out of the ICU and stable for [facility] floor. Possible discharge in 24-48 hours. Objective - Vital Signs Vital signs: Vital Signs Temp 96 F L 10/21/20 02:00 Pulse 48 L 10/21/20 02:00 Resp 9 L 10/21/20 02:00 BP 145/83 10/21/20 02:00 Pulse Ox 95 10/21/20 02:00 Intake & Output 10/20/20 10/21/20 10/21/20 18:59 06:59 18:59 Intake Total 480 180 Output Total 0 Balance 480 180 Weight 66.4 kg Intake: IV 480 180 Sodium Chloride 0.9% 1, 480 180 000 ml @ 75 mls/hr IV . [id number] [facility] Rx#:[id number] Output: Urine 0 - Labs CBC & Chem 7: 10/20/20 07:25 10/21/20 03:18 Labs: Abnormal Lab Results - Last 24 Hours (Table) 10/20/20 10/20/20 10/20/20 Range/Units 07:25 11:52 16:41 Chloride (98-107) mmol/L BUN (9-20) mg/dL Creatinine (0.66-1.25) mg/dL Glucose (74-99) mg/dL POC Glucose (mg/dL) 118 H 129 H (75-99) mg/dL Phosphorus 7.8 H (2.5-4.5) mg/dL 10/20/20 10/21/20 10/21/20 Range/Units 23:45 03:18 06:35 Chloride 110 H (98-107) mmol/L BUN 96 H (9-20) mg/dL Creatinine 7.62 H* (0.66-1.25) mg/dL Glucose 127 H (74-99) mg/dL POC Glucose (mg/dL) 197 H 165 H (75-99) mg/dL Phosphorus (2.5-4.5) mg/dL Microbiology - Last 24 Hours (Table) 10/15/20 14:21 Blood Culture - Preliminary Blood No Growth after 120 hours 10/15/20 14:05 Blood Culture - Preliminary Blood No Growth after 120 hours
[2020-10-21 14:41] VITALS: BMI 22.2
[2020-10-21 17:06] LABS: Glucose,Whole Blood 108 mg/dL (75-99)
[2020-10-21 21:01] LABS: Glucose,Whole Blood 117 mg/dL (75-99)
[2020-10-22] MEDS: PIPERACILLIN-TAZOBACTAM 3.375 GM in SODIUM CHLORIDE 0.9% 100 ML IVPB SCH ×2 (00:46→12:05)
[2020-10-22 04:20] LABS: Calcium 8.9 mg/dL (8.4-10.2); Potassium 3.6 mmol/L (3.5-5.1)
[2020-10-22] MEDS: SEVELAMER 800 MG TAB PO SCH ×2 (06:52→12:05)
[2020-10-22] MEDS: carvediloL 12.5 MG TAB PO SCH (06:52)
[2020-10-22 07:05] LABS: Glucose,Whole Blood 93 mg/dL (75-99)
--- NOTE | 2020-10-22 09:45 | P.PN ---
Subjective Progress Note Date: 10/22/20 Principal diagnosis: Acute on chronic renal failure. This is a 64-year-old white male with history of chronic renal failure, end- stage renal disease, patient is on hemodialysis normally Monday and Monday. Patient has always been very compliant with hemodialysis treatments and he always showed up to the dialysis unit for hemodialysis on a regular basis. However over the last week, patient has not been showing up for his hemodialysis, and a wellness check on the patient was done, and he was found use, short of breath, and experiencing episodes of myoclonic jerks, and extremely weak. Patient was brought into the ER, and he was found to have right upper lobe pneumonia possibly even a left lower lobe infiltrate, patient is also found to have profound mental status change with profound weakness, myoclonic jerking, anisocoria with right pupil much more dilated than the left pupil. Patient is also found to be extremely uremic and encephalopathic. Workup in the ER included CT of the brain which was nondiagnostic except for slight asymmetry of the optic nerve on the right. Nonspecific white matter changes were noted. His labs showed no evidence of leukocytosis. He was hyperkalemic with a potassium as high as 6.8 acidotic with bicarb of 18 uremic with a BUN of 175 and creatinine of 18.65. COVID-19 PCR was negative. ABG on BiPAP showed a pO2 of 143 pCO2 of 32 pH of 7.43. And this was on IPAP of 12 and EPAP of 6 and FiO2 of 40%. Angiography CT of the head and neck is pending. Patient was admitted to the ICU, and I was asked to see him on consultation. As soon as I evaluated the patient, recommended stat neurological consultation, also recommended changing his antibiotics to vancomycin and Zosyn. Cultures are pending. Patient was reevaluated today on 10/17/2020, remains in the ICU, remains on BiPAP with IPAP of 12 and EPAP of 6 FiO2 40%, remains on daily hemodialysis, he is receiving hemodialysis this morning. Continues to have significant uremia creatinine remains 12.28. Patient will be dialyzed today and the plan is to remove 3 L. Patient did not get a lumbar puncture mostly because of his elevated PTT. Remains on IV fluid at 0.9 normal saline 1 50 mL per hour. CPK is improving, but remains over 2000. CBC is relatively normal PTT is 42 potassium is 5.5 BUN 105 creatinine 12.28. CPK 2226. Patient remains on updrafts, he is also on anti-seizure therapy, Decadron, Zosyn empirically, chest x-ray continues to show right upper lobe pneumonia. On 10/18/2020 patient seen in follow-up in the intensive care unit, he is more awake on today's exam, however still confused, but not agitated, less shaky, he is breathing comfortably, he is currently on room air with a pulse ox of 95%, no evidence of any respiratory distress, he is on IV fluids 0.9 at 150 ML per hour, no other drips. Today's chest x-ray has been reviewed showing persistent right upper lobe consolidation. Current antibiotic coverage is with Zosyn and v ancomycin. His blood cultures have been negative, today's labs have been reviewed. His white count is 6.0, hemoglobin is 10.2, sodium is 144, potassium is 5.1, chloride is 108, CO2 is 18, B1 is 91, creatinine is 9.5. Patient had hemodialysis treatment yesterday would removal of 1.5 L of fluid, his total CK is improving on today's labs, and is down to 1125. Patient was also tested for COVID-19 was found to be negative, his vital signs have been stable, his last lactic acid from couple days ago was down to 1.7. At no fever or chills in the last 24 hours. Pupils are a lot more reactive today, his right pupil is improved in size, and is 3 mm, his left pupil is 2 mm. And also remains on De cadron milligrams every 6 hours for papilledema, patient was seen by ophthalmology consultation was noted. Patient has been nothing by mouth, and he states he is hungry and would like to eat. His abdomen is soft, no tenderness tenderness, no nausea vomiting or diarrhea. Blood pressures are running a little higher, with the systolic in the 150s and 160s and diastolic in the 90s and 100s. We can restart some of his home medications including Coreg, Norvasc, Cardura. On 10/19/2009 with patient seen in follow-up in intensive care unit, he is resting comfortably in bed, he is awake, he is oriented to self, but not place or time. No garbled speech, no focal neurological deficits. He is moving all 4 extremities, he is generally weak, appears to be in no acute distress, no sign of any shortness of breath or cough, today's chest x-ray has been reviewed showing improving right upper lobe infiltrate, and developing left lower lobe infiltrate. He is on 2 L of oxygen with pulse ox of 98%, as been afebrile, hemodynamically his been stable, he continues on Zosyn for antibiotic coverage. Cultures remain negative, patient's last hemodialysis session was on 10/17/2020 would removal of 1.8 L of fluid. Patient remains on dexamethasone 4 mg twice a day, remains on Levaquin some 9, remains on breathing treatments, antibiotics, and IV fluids with 0.9 normal saline at a rate of 75 ML per hour. No Acute issues overnight. Today's labs have been reviewed, white blood cell count is 5.2, hemoglobin is 9.6, potassium is 5.2, chloride is 110, CO2 is 20, B1 is 117, creatinine is 9.85. Patient is anuric, anticipate hemodialysis today, nephrology is following. His CPKs were improving on yesterday's labs and or down to 1125, obtain a follow-up CK today. His had no nausea or vomiting or diarrhea. His oral intake has been poor. The patient has been tolerating full liquid diet. Progress note dated 10/20/2020. This is a 64-year-old male who is again seen in the intensive care unit, room 253. The patient is waiting for a bed out on the general medical floor, with telemetry. Currently, he's on 2 L nasal cannula. He is getting saline at 50 mL an hour. He did have hemodialysis yesterday, with 1 L being removed. Clinically he is feeling well. He had an uneventful night according to the nurse. No labs from today as yet. Blood cultures are negative. Progress note dated 10/21/2020. 64-year-old male, again seen in the intensive care unit, room 253. The patient is either on room air, or when he sleeping, on 2 L. The patient's getting saline at KVO which she does not need. I've asked the nurse to discontinue that. The patient is doing well otherwise. We'll discontinue Zosyn and Decadron. His IV as mentioned above will be discontinued as well. The patient can be transferred to the general medical floor with telemetry. Current lab data includes a sodium 145, potassium 4.5, chlorides 110, CO2 23, anion gap 12, BUN 96, creatinine 7.62. No chest x-ray today. Progress note dated 10/22/2020. 64-year-old male, again seen in the intensive care unit, room 253. The patient is not on any supplemental oxygen or receiving any IV fluids. The patient continues to do well. Clinically he is much more stable. The patient will continue on hemodialysis, and his usual schedule. He has no new complaints today. He is resting comfortably. Most recent blood work shows a sodium 140, potassium 3.6, chlorides 103, CO2 27, anion gap 10, BUN 66, creatinine 5.84. The patient has not had a recent chest x-ray. Objective - Vital Signs Vital signs: Vital Signs Temp 97.5 F L 10/22/20 08:00 Pulse 58 L 10/22/20 08:00 Resp 16 10/22/20 08:00 BP 124/73 10/22/20 08:00 Pulse Ox 95 10/22/20 08:00 Intake & Output 10/21/20 10/22/20 10/22/20 18:59 06:59 18:59 Intake Total 400 100 Output Total 2000 0 Balance -1600 100 0 Weight 66.4 kg 66 kg Intake: IV 100 Piperacillin-Tazobactam 3 100 .375 gm In Sodium Chloride 0.9% 100 ml @ 25 mls/hr IVPB Q12HR [facility] Rx #:[id number] Intake, IV Titration 50 Amount Lacosamide IV 50 mg In 50 Sodium Chloride 0.9% 50 ml @ 100 mls/hr IVPB BID [facility] Rx#:[id number] Oral 250 100 Output: Urine 0 Hemodialysis 2000 Other: # Voids 0 0 # Bowel Movements 1 - Exam No acute distress, oriented 3. Currently, on room air, saturations are 95%. HEENT examination is grossly unremarkable. Neck supple. Full range of motion. No adenopathy thyromegaly or neck vein di stention. Cardiovascular examination reveals regular rhythm rate. S1-S2 normal. No S3 or S4. No discernible murmur noted. Heart sounds are distant. Heart rate 58 bpm. Lungs reveal scattered bilateral rhonchi. Mild bibasilar crackles. Breath sounds equal bilaterally. No wheezes. Abdomen soft bowel sounds are heard. No masses or tenderness. Extremities are intact. No cyanosis or clubbing. Mild diffuse edema is appreciated.. Skin is without rash or lesion. Neurologic examination is brief but nonfocal. - Labs CBC & Chem 7: 10/20/20 07:25 10/22/20 03:35 Labs: Abnormal Lab Results - Last 24 Hours (Table) 10/21/20 10/21/20 10/21/20 Range/Units 11:33 17:05 20:59 BUN (9-20) mg/dL Creatinine (0.66-1.25) mg/dL POC Glucose (mg/dL) 107 H 108 H 117 H (75-99) mg/dL 10/22/20 Range/Units 03:35 BUN 66 H (9-20) mg/dL Creatinine 5.84 H (0.66-1.25) mg/dL POC Glucose (mg/dL) (75-99) mg/dL Microbiology - Last 24 Hours (Table) 10/15/20 14:21 Blood Culture - Final Blood No Growth after 144 hours 10/15/20 14:05 Blood Culture - Final Blood No Growth after 144 hours Assessment and Plan Assessment: #1. Altered mental status, secondary to acute metabolic encephalopathy with severe uremia, with a known history of end-stage renal disease, had missed hemo dialysis for one week prior to presentation. #2. Possible CVA with encephalopathy, profound weakness in myoclonic jerks as well as in the subchorionic/unequal pupillary sizes. #3. Acute rhabdomyolysis with significantly elevated CPK, related to possible fall at home, and inability to ambulate. #4. Acute bilateral pneumonia with significant consolidation in the right upper lobe, strongly suspect aspiration pneumonia, currently covered with Zosyn and vancomycin. #5. Possible sepsis with pneumonia being the primary source. #6. End-stage renal disease on hemodialysis. #7. History of hypertension. #8. Acute metabolic acidosis secondary to acute on chronic kidney disease. #9. Hyperkalemia secondary to acute on chronic kidney disease, and missed hemodialysis, improved. #10. Papilledema involving the right optic nerve, possible CVA, ophthalmology is following. She is currently on Decadron. CT had and CTA head and neck were unremarkable, MRI of the brain with no evidence of recent infarct. #11. Myoclonus, EEG showed background slowing, suggestive of mild to moderate encephalopathy, no evidence of epileptiform discharges. Plan: Plan dated 10/20/2020. The patient is stable. The patient can be transferred out of the intensive care unit. The patient did have hemodialysis yesterday, and 1 L was removed. The patient remains on 2 L nasal cannula. That can probably be weaned off as well. We will continue to follow. Prognosis is guarded. Plan dated 10/21/2020. Currently, the patient's doing well. The patient can be transferred out to the general medical floor with telemetry. We are going to discontinue the antibiotic, i.e. Zosyn, and Decadron. We'll also DC the IV fluids. The patient otherwise is doing reasonably well. Most of the time, the patient's on room air. He does have some mild desaturation when he sleeps at nighttime. We will continue to follow make recommendations where appropriate. Plan dated 10/22/2020. The patient's doing well. The patient has been weaned off of supplemental oxygen. He's not receiving any IV fluids. He continues with his usual hemodialysis. Microbiology studies are negative. The patient remains on Zosyn as per infectious diseases. Additional recommendations and suggestions are forthcoming. We will see the patient only as needed moving forward. Time with Patient: Less than 30
[2020-10-22] MEDS ORDERED: LOPERAMIDE 2 MG CAP PO PRN (11:25)
[2020-10-22] MEDS ORDERED: LOPERAMIDE 2 MG CAP PO STA (11:25)
[2020-10-22] MEDS: LACOSAMIDE IV 50 MG in SODIUM CHLORIDE 0.9% 50 ML IVPB SCH (12:04)
[2020-10-22] MEDS: ASPIRIN 81 MG PO SCH (12:05)
[2020-10-22] MEDS: FOLIC ACID-VIT B COMPLEX-VIT C 1 CAP PO SCH (12:05)
--- NOTE | 2020-10-22 14:36 | P.DS ---
Providers Date of admission: 10/15/20 14:11 Expected date of discharge: 10/22/20 Attending physician: Santi Monae MD Consults: 10/15/20 14:13 Consult Physician Urgent Consulting Provider: Wander Fernando Consult Reason/Comments: ESRD Do you want consulting provider notified?: Yes 10/16/20 08:56 Consult Physician Urgent Consulting Provider: Beena Ovlera Consult Reason/Comments: ICU management Do you want consulting provider notified?: Yes 10/16/20 08:58 Consult Physician Urgent Consulting Provider: Joaquin Camacho Consult Reason/Comments: unequal pupils, mental status changes Do you want consulting provider notified?: Yes 10/16/20 10:02 Consult Physician Routine Consulting Provider: Lennox Baxter Consult Reason/Comments: papilledema Do you want consulting provider notified?: Yes 10/16/20 10:59 Consult Physician Urgent Consulting Provider: Sabine Brooks Consult Reason/Comments: underlying infection Do you want consulting provider notified?: Yes 10/16/20 17:58 Consult to Anesthesia Stat Consulting Provider: Anesthesia,Services Consult Reason/Comments: lumbar puncture. Obtain opening pressure Primary care physician: Stated None Hospital Course: Final diagnosis -Altered mental status secondary to acute metabolic encephalopathy with severe uremia: Patient has end-stage renal disease and had been missing hemodialysis for 1 week -Papilledema involving the right optic nerve, possibly CVA with neurology following a neurological workup is in process, CT of the head and CTA of the head and neck are negative, MRI of the brain is negative for recent infarct with possible left mastoiditis not excluded. CVA ruled out -Acute rhabdomyolysis with elevated CK with possibility of unwitnessed fall and downtime at home, improved -Acute bilateral pneumonia with significant consolidation in the right upper lobe with possible aspiration pneumonia with possible sepsis, present on admission -End-stage renal disease on hemodialysis and nephrology following, reported one week without dialysis -Acute metabolic acidosis secondary to chronic kidney disease -Hyperkalemia secondary to chronic kidney disease and missed hemodialysis, improved -Hypertension -DVT prophylaxis -Full code Discharge disposition Patient is being discharged in a stable condition with guarded prognosis to [facility] for continued PT/OT therapy. Patient will follow-up with Dr. Damon in the outpatient setting upon discharge. Patient is to continue with hemodialysis as scheduled. Total time taken is greater than 35 minutes. Hospital course 64-year-old male presenting to emergency department by ambulance for dyspnea. Patient reportedly has been missing his dialysis and police have been called several times for well check. Patient has refused to go for dialysis. Patient was found today to be altered during will check. Patient is a poor historian. Patient does admit to being short of breath. EMS was concerned for possible fever. Initial vital signs: Blood pressure of 145/83, heart rate of 87, respiratory of 22, temperature of 103.3 Fahrenheit rectal and pulse ox of 99% room air. He had a repeated the temperature of 101.2. White blood cell is 8.9 and a repeat is 6 0.1 thousand which is considered within normal limits. He had the slight neutrophilic of 8.3. Chemistry panel is a sodium of 139 considered within normal limits, glucose of 120 which is slightly elevated but unremarkable, calcium initial one was 9.8 which is considered within normal limits. His initial potassium is 6.8 which is a significantly elevated. His creatinine on presentation to 18.6 which is above his baseline and he missed dialysis for a week. As well as the BUN is 175 on presentation the which is also elevated. AST of 108 which is slightly elevated but the ALT is 36 which is considered within normal limits. Phosphorus is 9.2 which is elevated and magnesium 3.1 which is also elevated. His potassium is trending down and the last one is 5.6. CT of the head is reported as degenerative and nonspecific white matter changes most typical of remote ischemic noted nodular prominence of basilar tip could be associated with a small aneurysm short segment follow-up MRA [place] of [place] recommended. Chest x-ray was reported as cardiomegaly and chronic parenchymal changes with the right upper long and medial right mid to lower lung mass likely consolidation. Correlate for multi-lobe pneumonia. Follow-up studies after treatment advised to exclude underlying mass. Repeat chest x-ray on 10/16/2020 is reported as large right upper lobe consolidation can be compatible with pneumonia. Some improvement may be present. Continue to follow up to clearing is recommended that. 10/18/2020 patient seen and evaluated at bedside in ICU, patient is more awake and responsive this morning; remains confused Currently on room air with a pulse ox of 95%, no evidence of any respiratory distress Chest x-ray has been reviewed showing persistent right upper lobe consolidation; patient remains on IV antibiotics in form of Zosyn and vancomycin. His blood cultures have been negative; white count is 6.0, hemoglobin is 10.2, sodium is 144, potassium is 5.1, chloride is 108, CO2 is 18, B1 is 91, creatinine is 9.5. Patient is negative for COVID-19 MRI of the brain reveals no signs of compressive lesion. CT angiogram of the head and neck reveals no signs of aneurysm. Patient had hemodialysis treatment yesterday would removal of 1.5 L of fluid, his total CK is improving on today's labs, and is down to 1125. Patient remains on Decadron milligrams every 6 hours for papilledema, patient was seen by ophthalmology consultation was noted. Patient has been nothing by mouth, and he states he is hungry and would like to eat. His abdomen is soft, no tenderness tenderness, no nausea vomiting or diarrhea. Blood pressures are running a little higher, with the systolic in the 150s and 160s and diastolic in the 90s and 100s. We can restart some of his home medications including Coreg, Norvasc, Cardura. Neurology is on board for toxic metabolic encephalopathy; possibility of myasthenia gravis given bilateral ptosis and anisocoria; acetylcholine receptor antibodies has been ordered by neurology 10/19/2020 Patient is seen and evaluated in follow-up today continues to be closely monitored in the ICU. Patient's mentation continues to improve although extremely lethargic and is alert 2. Patient currently receiving hemodialysis for end-stage renal disease. Multiple consultations including nephrology and neurology following along with activity aid. Patient states he uses 2 L of oxygen in the outpatient setting and continues to do so although denies any worsening shortness of breath. Patient's chest x-ray today shows improving right upper lobe infiltrate with a possible developing left lower lobe. Blood pressure has been on the lower side and will continue to monitor. White blood count within normal limits at 5.2, hemoglobin is 9.6, sodium is 143 with a potassium of 5.2, BUN is 117 and creatinine is 9.85. Sugars being monitored closely and will continue with sliding scale if needed. Patient maintained on full liquids and tolerating although continues to have poor oral intake stating he does not have much of an appetite. Patient also continues on IV Zosyn with infectious disease following closely. Blood cultures have remained negative. Patient is afebrile. 10/20/2020 Patient is seen in follow-up currently working with PT/OT therapy at the bedside and continues to be quite weak and plans are for possible rehab that can accommodate hemodialysis as he continues on Monday/Monday/Monday schedule. Patient states he does live at home home and is unable to care for himself currently. Patient did receive hemodialysis yesterday with 1 L removal and doing well with nephrology following closely. Patient is tolerating oral diet and advance as tolerated. Possible speech reevaluation to further increase diet. Patient continues to have poor oral intake and requires encouragement. Patient is slightly more awake today. Continues on 2 L via nasal cannula and wean as tolerated. Patient also continues with IV Zosyn and blood cultures remain negative. Recommend continue aspiration precautions with head of the bed elevated 30-45. Patient continues on Decadron for possible papilledema and ophthalmology has been consulted and following. Neurology also following. Blood count within normal limits at 6.1 hemoglobin is 9.1, sodium is 144 with a potassium of 4.4. Appropriate home medications resumed. 10/21/2020 Patient is seen in follow-up this morning continues to be in the ICU and awaiting overflow bed with no acute overnight issues noted. Patient continues on IV Zosyn and we'll transition to oral antibiotics on discharge. Patient is tolerating diet and continues to have poor oral intake although is eating with no difficulties. Patient currently receiving hemodialysis as he is normally scheduled on Monday/Monday/Monday. Mentation much improved although patient is lethargic but answering and responding to questions and commands appropriately. Social work following for possible placement at [facility] and awaiting an accepting facility. Sodium is 145 with a potassium of 4.5 current creatinine is 7.62 and again receiving hemodialysis today. Currently no reports of chest pain, shortness of breath, or palpitations. Patient is afebrile. No reports of nausea or vomiting and patient is tolerating diet. Patient will be going to [facility] today. 10/22/2020 Patient is seen this morning with no acute overnight issues. Patient currently receiving hemodialysis as he is scheduled Monday/Monday/Monday and will continue. Patient awaiting to go to [facility] with accepted him for continued PT/OT therapy. Per neurology patient to continue with Vimpat and will need neurology outpatient follow-up and continue current medications. Patient will also continue with antibiotics in the form of Augmentin 500 mg twice daily for the next 1 week and then may discontinue. Patient to continue with current consistent carb diet, renal diet and continue with aspiration precautions of head of the bed elevated 30-45. Patient will need outpatient follow-up with primary care provider along with nephrology as well. Gen: This is a 64-year-old male sitting up in the bed awake but fatigues easily, oriented 3, no acute distress HEENT: Head is atraumatic, normocephalic. Pupils equal, round. Sclerae is anicteric. NECK: Supple. No JVD. No lymphadenopathy. No thyromegaly. LUNGS: Diminished breath sounds bilaterally with no wheezing or rhonchi noted. No intercostal retractions. HEART: Regular rate and rhythm. No murmur. ABDOMEN: Soft. Thin, Bowel sounds are present. No masses. No tenderness. EXTREMITIES: No pedal edema. No calf tenderness. NEUROLOGICAL: Patient is awake, alert and oriented x3. Diffusely weak On exam vital signs are stable. Cardio S1, S2 are muffled. Respiratory system shows diminished breath sounds at the bases with no wheezing or rhonchi noted. Abdomen is soft and nontender. Nervous system shows diffuse weakness. Please refer to medication reconciliation sheet for a list of medications. Patient Condition at Discharge: Stable Plan - Discharge Summary New Discharge Prescriptions: New Sevelamer [Renvela] 4,000 mg PO AC-TID tab Lacosamide [Vimpat] 50 mg PO BID 3 Days #6 tab Aspirin 81 mg PO DAILY chew Amoxicillin/Potassium Clav [Augmentin 500-125 Tablet] 1 tab PO Q12HR 7 Days #14 tab Loperamide [Imodium] 2 mg PO QID PRN cap PRN Reason: Diarrhea Continue amLODIPine [Norvasc] 10 mg PO DAILY Patiromer Calcium Sorbitex [Veltassa] 8.4 gm PO DAILY cloNIDine HCL [Catapres] 0.3 mg PO Q8H Pantoprazole Sodium [Protonix] 40 mg PO DAILY PRN PRN Reason: Heartburn Carvedilol [Coreg] 25 mg PO BID Renaplex-D 1 tab PO DAILY Doxazosin [Cardura] 2 mg PO BID Lanthanum Carbonate 1,000 mg PO TID-W/MEALS Discontinued Sevelamer [Renvela] 1,600 mg PO AC-TID Discharge Medication List amLODIPine [Norvasc] 10 mg PO DAILY 02/20/15 [History] Carvedilol [Coreg] 25 mg PO BID 10/15/20 [History] Doxazosin [Cardura] 2 mg PO BID 10/15/20 [History] Lanthanum Carbonate 1,000 mg PO TID-W/MEALS 10/15/20 [History] Pantoprazole Sodium [Protonix] 40 mg PO DAILY PRN 10/15/20 [History] Patiromer Calcium Sorbitex [Veltassa] 8.4 gm PO DAILY 10/15/20 [History] Renaplex-D 1 tab PO DAILY 10/15/20 [History] cloNIDine HCL [Catapres] 0.3 mg PO Q8H 10/15/20 [History] Amoxicillin/Potassium Clav [Augmentin 500-125 Tablet] 1 tab PO Q12HR 7 Days #14 tab 10/22/20 [Rx] Aspirin 81 mg PO DAILY chew 10/22/20 [Rx] Lacosamide [Vimpat] 50 mg PO BID 3 Days #6 tab 10/22/20 [Rx] Loperamide [Imodium] 2 mg PO QID PRN cap 10/22/20 [Rx] Sevelamer [Renvela] 4,000 mg PO AC-TID tab 10/22/20 [Rx] Follow up Appointment(s)/Referral(s): Fam Han MD [REFERRING] - 1 Week Jose Martin Rivera MD [REFERRING] - 1 Week Activity/Diet/Wound Care/Special Instructions: Patient is going to [facility] as tolerated Continue with antibiotics twice daily for 1 week and then may discontinue Continue his medications as prescribed Outpatient follow-up with neurology in 1-2 weeks Continue with hemodialysis Monday/Monday/Monday and follow-up with nephrology outpatient Need to establish with primary care provider in the outpatient setting Continue with nephro oral supplements 3 times a day with meals Continue renal diet low potassium, low phosphorus Continue with aspiration precautions of head of the bed elevated 30-45 at all times Follow-up outpatient with ophthalmology for possible papilledema Discharge Disposition: TRANSFER TO SNF/ECF
[2020-10-22 15:06] VITALS: BP 128/71; PULSE 66; RESP 20; TEMP 98
[2020-10-22] MEDS: PATIROMER CALCIUM SORBITEX PO SCH (15:06)
[2020-10-22] MEDS: cloNIDine HCL 0.1 MG TAB PO SCH (15:07)
[2020-10-22] MEDS: amLODIPine 10 MG TAB PO SCH (15:07)
[2020-10-22] MEDS: DOXAZOSIN 2 MG TAB PO SCH (15:07)
--- NOTE | 2020-10-22 15:48 | PN ---
PROGRESS NOTE DATE OF SERVICE: 10/22/2020 REASON FOR FOLLOWUP VISIT: Pneumonia, likely aspiration etiology. INTERVAL HISTORY: The patient is currently afebrile. He is breathing comfortably. Undergoing dialysis. However mentioned not feeling that good though. denies having any chest pain or any worsening cough. No vomiting. No abdominal pain. No diarrhea. PHYSICAL EXAMINATION: Blood pressure is 128/77 with a pulse of 71, temperature 98.6. He is 95% on room air. General description is a middle-aged male lying in bed in no distress. Respiratory system: Unlabored breathing, decreased intensity of breath sounds. No wheeze. Heart: S1, S2. Regular rate and rhythm. Abdomen: Soft, no tenderness. LABS: Hemoglobin 9.8, white count 6.1. BUN of 66, creatinine 5.84. Blood culture has been negative. Sputum not collected. DIAGNOSTIC IMPRESSION AND PLAN: Patient with lower lobe pneumonia, possible aspiration etiology. Overall improvement on Zosyn, finish therapy with either Avelox or Augmentin for another week and close outpatient followup. MMODL / IJN: [id number] /
[2020-10-22 20:54] LABS: Histoplasma Abs by ID None Detected (None Detected); Histoplasma Abs by Mycelia, CF <1:8 (<1:8)
== END 2020-10-22 17:14 | DRG 871 ==
LOC: EC 13:52 → 3SCARD 14:11 → 2SICU 16:16
PROVIDERS: ADMIT Internal Medicine; ATTEND Internal Medicine
PROC: 5A09557 Assistance with Respiratory Ventilation, Greater than 96 Consecutive Hours, Continuous Positive Airway Pressure (ICD-10-PCS; principal; 2020-10-15)
DX: A41.9 Sepsis, unspecified organism (principal); J18.9 Pneumonia, unspecified organism; N18.6 End stage renal disease; G92 Toxic encephalopathy; J69.0 Pneumonitis due to inhalation of food and vomit; I12.0 Hypertensive chronic kidney disease with stage 5 chronic kidney disease or end stage renal disease; H47.10 Unspecified papilledema; M62.82 Rhabdomyolysis; E87.2 Acidosis; N17.9 Acute kidney failure, unspecified; Z91.15 Patient's noncompliance with renal dialysis; E87.5 Hyperkalemia; E83.39 Other disorders of phosphorus metabolism; H02.401 Unspecified ptosis of right eyelid; E83.41 Hypermagnesemia; E87.70 Fluid overload, unspecified; G25.3 Myoclonus; Z99.2 Dependence on renal dialysis; Z91.19 Patient's noncompliance with other medical treatment and regimen; Z82.49 Family history of ischemic heart disease and other diseases of the circulatory system; Z79.899 Other long term (current) drug therapy; Z20.822 Contact with and (suspected) exposure to COVID-19; R65.20 Severe sepsis without septic shock; R09.02 Hypoxemia
CPT/HCPCS: 36600; 70450; 70496; 70498; 70551; 71045; 72141; 80048; 80053; 80061; 80202; 82140; 82533; 82550; 82565; 82607; 82746; 82747; 82805; 83036; 83519; 83605; 83735; 84100; 84439; 84443; 85025; 85027; 85610; 85730; 86003; 86635; 86698; 87040; 87327; 87635; 90935; 93005; 93306; 94640; 94660; 95816; 99285

== ENCOUNTER 2020-10-24 14:54 | Inpatient (IN) | payer MEDICARE, OTHER ==
--- NOTE | 2020-10-24 16:19 | ED ---
General Adult HPI - General Chief complaint: Skin/Abscess/Foreign Body Stated complaint: dialysis abscess Time Seen by Provider: 10/24/20 15:39 Source: patient, EMS, RN notes reviewed Mode of arrival: EMS Limitations: no limitations - History of Present Illness Initial comments: Patient is a pleasant 64-year-old male presenting to the emergency Department with swelling to the left arm. Patient states it is been present for a couple of weeks now. Patient is a poor historian. Patient after time is able to state that his dialysis fistula was placed approximately 6 years ago. Patient is unclear where this was placed. Patient denies any discomfort. Patient denies any fevers. Patient has swelling of his left forearm. Patient denies any dyspnea or fevers. - Related Data Home Medications Medication Instructions Recorded Confirmed amLODIPine [Norvasc] 10 mg PO DAILY 02/20/15 10/15/20 Carvedilol [Coreg] 25 mg PO BID 10/15/20 10/15/20 Doxazosin [Cardura] 2 mg PO BID 10/15/20 10/15/20 Lanthanum Carbonate 1,000 mg PO TID-W/MEALS 10/15/20 10/20/20 Pantoprazole Sodium [Protonix] 40 mg PO DAILY PRN 10/15/20 10/15/20 Patiromer Calcium Sorbitex 8.4 gm PO DAILY 10/15/20 10/15/20 [Veltassa] Renaplex-D 1 tab PO DAILY 10/15/20 10/15/20 cloNIDine HCL [Catapres] 0.3 mg PO Q8H 10/15/20 10/15/20 Previous Rx's Medication Instructions Recorded Amoxicillin/Potassium Clav 1 tab PO Q12HR 7 Days #14 tab 10/22/20 [Augmentin 500-125 Tablet] Aspirin 81 mg PO DAILY chew 10/22/20 Lacosamide [Vimpat] 50 mg PO BID 3 Days #6 tab 10/22/20 Loperamide [Imodium] 2 mg PO QID PRN cap 10/22/20 Sevelamer [Renvela] 4,000 mg PO AC-TID tab 10/22/20 Allergies Allergy/AdvReac Type Severity Reaction Status Date / Time Sulfa (Sulfonamide Allergy Rash/Hives Verified 10/24/20 15:13 Antibiotics) Review of Systems ROS Statement: Those systems with pertinent positive or pertinent negative responses have been documented in the HPI. ROS Other: All systems not noted in ROS Statement are negative. Constitutional: Denies: fever, chills Eyes: Denies: eye pain ENT: Denies: ear pain Respiratory: Denies: cough Cardiovascular: Denies: chest pain Endocrine: Denies: fatigue Gastrointestinal: Denies: abdominal pain Genitourinary: Denies: dysuria Musculoskeletal: Denies: back pain Skin: Denies: lesions Past Medical History Past Medical History: Hypertension Additional Past Medical History / Comment(s): DIALYSIS T,TH,SA History of Any Multi-Drug Resistant Organisms: None Reported Additional Past Surgical History / Comment(s): FISTULA, rigth side kidney removal. Past Psychological History: No Psychological Hx Reported Smoking Status: Unknown if ever smoked Past Alcohol Use History: None Reported Past Drug Use History: None Reported - Past Family History Mother Family Medical History: Dementia, Hypertension General Exam Limitations: no limitations General appearance: alert, in no apparent distress Head exam: Present: normocephalic Eye exam: Present: normal appearance Neck exam: Present: normal inspection Respiratory exam: Present: normal lung sounds bilaterally Cardiovascular Exam: Present: regular rate, normal rhythm GI/Abdominal exam: Present: soft. Absent: tenderness Extremities exam: Present: other (Large dilated left upper arm fistula consistent with previous exam. Thrill present. Left forearm with mild swelling extending to the hand. No significant erythema or warmth or tenderness.) Back exam: Present: normal inspection Neurological exam: Present: alert Psychiatric exam: Present: normal affect, normal mood Skin exam: Present: normal color Course Vital Signs 10/24/20 10/24/20 15:05 19:01 Temperature 98 F Pulse Rate 78 73 Respiratory 18 16 Rate Blood Pressure 147/83 134/80 O2 Sat by Pulse 97 97 Oximetry Medical Decision Making - Medical Decision Making Patient reevaluated and updated. Case discussed with Dr. Amaya, who will admit for patient was recently admitted to their service. - Lab Data Result diagrams: 10/24/20 17:29 10/24/20 17:29 Lab Results 10/24/20 10/24/20 10/24/20 Range/Units 17:29 17:29 17:29 WBC 5.1 (3.8-10.6) k/uL RBC 2.71 L (4.30-5.90) m/uL Hgb 8.6 L (13.0-17.5) gm/dL Hct 26.8 L (39.0-53.0) % MCV 98.8 (80.0-100.0) fL MCH 31.7 (25.0-35.0) pg MCHC 32.1 (31.0-37.0) g/dL RDW 16.8 H (11.5-15.5) % Plt Count 83 L (150-450) k/uL MPV 10.2 Neutrophils % 80 % Lymphocytes % 12 % Monocytes % 3 % Eosinophils % 3 % Basophils % 0 % Neutrophils # 4.1 (1.3-7.7) k/uL Lymphocytes # 0.6 L (1.0-4.8) k/uL Monocytes # 0.2 (0-1.0) k/uL Eosinophils # 0.2 (0-0.7) k/uL Basophils # 0.0 (0-0.2) k/uL Anisocytosis Slight Macrocytosis Slight PT 11.5 (9.0-12.0) sec INR 1.1 (<1.2) APTT 19.1 L (22.0-30.0) sec Sodium 136 L (137-145) mmol/L Potassium 4.5 (3.5-5.1) mmol/L Chloride 103 (98-107) mmol/L Carbon Dioxide 23 (22-30) mmol/L Anion Gap 10 mmol/L BUN 85 H (9-20) mg/dL Creatinine 6.97 H (0.66-1.25) mg/dL Est GFR (CKD-EPI)AfAm 9 (>60 ml/min/1.73 sqM) Est GFR (CKD-EPI)NonAf 8 (>60 ml/min/1.73 sqM) Glucose 94 (74-99) mg/dL Calcium 8.7 (8.4-10.2) mg/dL Total Bilirubin 0.9 (0.2-1.3) mg/dL AST 76 H (17-59) U/L ALT 61 H (4-49) U/L Alkaline Phosphatase 38 (38-126) U/L Total Protein 5.2 L (6.3-8.2) g/dL Albumin 2.6 L (3.5-5.0) g/dL - Radiology Data Radiology results: report reviewed (us negative for DVT), image reviewed (Chest x-ray shows new mild right lower lobe infiltrate) Disposition Clinical Impression: Renal failure (ARF), acute on chronic, Arm swelling, Pneumonia Disposition: ADMITTED IP TO THIS HOSP Is patient prescribed a controlled substance at d/c from ED?: No Referrals: None,Stated [Primary Care Provider] - 1-2 days Decision Time: 19:25
[2020-10-24 17:47] LABS: Albumin 2.6 g/dL (3.5-5.0); Calcium 8.7 mg/dL (8.4-10.2); Total Bilirubin 0.9 mg/dL (0.2-1.3); Total Protein 5.2 g/dL (6.3-8.2)
--- NOTE | 2020-10-24 17:50 | US ---
EXAMINATION TYPE: US venous doppler duplex UE LT DATE OF EXAM: 10/24/2020 COMPARISON: NONE CLINICAL HISTORY: swelling. Patient has dialysis graft that is severly dilated. SIDE PERFORMED: Left Left Arm: No DVT seen. Dialysis vessel is severely distended and patent. IMPRESSION: No evidence of deep vein thrombosis in the left arm.
[2020-10-24 17:57] LABS: Potassium 4.5 mmol/L (3.5-5.1)
[2020-10-24 18:01] LABS: Anisocytosis Slight; Basophils % (A) 0 %; Eosinophils # (A) 0.2 k/uL (0-0.7); Eosinophils % (A) 3 %; HCT 26.8 % (39.0-53.0); HGB 8.6 gm/dL (13.0-17.5); Lymphocytes # (A) 0.6 k/uL (1.0-4.8); Lymphocytes % (A) 12 %; MCH 31.7 pg (25.0-35.0); MCHC 32.1 g/dL (31.0-37.0); MCV 98.8 fL (80.0-100.0); Macrocytosis Slight; Mean Platelet Volume 10.2; Monocytes # (A) 0.2 k/uL (0-1.0); Monocytes % (A) 3 %; Neutrophils # (A) 4.1 k/uL (1.3-7.7); Neutrophils % (A) 80 %; RBC 2.71 m/uL (4.30-5.90); RDW 16.8 % (11.5-15.5); WBC 5.1 k/uL (3.8-10.6)
[2020-10-24 18:02] LABS: Platelet Count 83 k/uL (150-450)
[2020-10-24 18:03] LABS: INR 1.1 (<1.2); Prothrombin Time 11.5 sec (9.0-12.0)
[2020-10-24 18:12] LABS: Partial Thromboplastin Time 19.1 sec (22.0-30.0)
--- NOTE | 2020-10-24 19:10 | XR ---
EXAMINATION TYPE: XR chest 2V DATE OF EXAM: 10/24/2020 COMPARISON: 10/19/2020 HISTORY: Weakness TECHNIQUE: 2 views FINDINGS: There is some blunting of the costophrenic angles and more on the left side. Heart size is normal. There are no hilar masses. There is some mild infiltrate right upper lobe. There is no gross heart failure. There is some mild infiltrate left lung base. There is small infiltrate lateral right lung base. IMPRESSION: Bilateral pneumonia that is improved compared to recent exam. No heart failure. There is a new small infiltrate right lung base compared to last exam.
[2020-10-24] MEDS ORDERED: AZITHROMYCIN 500 MG in SODIUM CHLORIDE 0.9% 250 ML IVPB STA (19:25)
[2020-10-24] MEDS ORDERED: PNEUMONIA PROTOCOL UTILIZED 1 EACH MISC PO PRN (19:25)
[2020-10-24] MEDS ORDERED: PIPERACILLIN-TAZOBACTAM 3.375 GM in SODIUM CHLORIDE 0.9% 100 ML IVPB STA (19:25)
--- NOTE | 2020-10-24 20:31 | HP ---
HISTORY AND PHYSICAL DATE OF SERVICE: 10/24/2020 CHIEF COMPLAINT: Swelling of the left arm as well as inability to do the hemodialysis. HISTORY OF PRESENT ILLNESS: This 64-year-old gentleman with a past medical history of multiple medical problems, including hypertension, history of hemodialysis on Monday, , Monday, history of AV fistula on the left arm, was recently admitted to [facility] with complaints of change in mental status and some papilledema. The patient apparently had some cellulitic process on the left arm also. The patient was seen by Infectious Disease during that time. The patient has also had some left lower lobe pneumonia, possibly aspiration. Zosyn was finished and the patient was started on p.o. antibiotics and discharged. Currently apparently the dialysis could not be done, and the patient was sent to [facility] for further evaluation and treatment. The patient missed hemodialysis and the creatinine is elevated to 6.97 and BUN is 85. The chest x-ray which was done today, which was reviewed personally by me, showed some bilateral pneumonia. The patient has significant pneumonic process on the right upper lobe which is clear, but the right lower lobe is still showing some changes. Fluid overload could not be completely ruled out. There is no history of any fever, rigor or chills at this time. The patient is followed by Dr. Han in the outpatient setting. PAST MEDICAL HISTORY: History of hypertension, history of chronic renal failure, history of AV fistula on the left arm. MEDICATIONS: Home medications are clonidine, amlodipine, Renvela, RenaPlex, Protonix, Imodium, lanthanum, Vimpat, Cardura, Coreg, aspirin, Augmentin. ALLERGIES: SULFA. FAMILY HISTORY: Dementia, hypertension. SOCIAL HISTORY: No history of smoking. No history of al intake. REVIEW OF SYSTEMS: ENT: Diminished hearing. Diminished vision. CARDIOVASCULAR SYSTEM: As mentioned earlier. RESPIRATORY SYSTEM: As mentioned earlier. GI: As mentioned earlier. : As mentioned earlier. NERVOUS SYSTEM: No numbness, weakness. ALLERGY/IMMUNOLOGY: No asthma or hay fever. MUSCULOSKELETAL: As mentioned earlier. HEMATOLOGY/ONCOLOGY: No history of anemia. ENDOCRINE: No history of diabetes or hypothyroidism. CONSTITUTIONAL: As mentioned earlier. DERMATOLOGY: As mentioned earlier. RHEUMATOLOGY: Negative. PSYCHIATRY: Negative. PHYSICAL EXAMINATION: Patient is alert and oriented x3. Pulse 78, blood pressure 147/83, respiration 18, temperature 98 degrees, pulse ox 97% on room air, HEENT: Conjunctivae normal. Oral mucosa moist. NECK: No jugular venous distention. No carotid bruit. No lymph node enlargement. CARDIOVASCULAR SYSTEM: S1, S2 muffled. No S3. No S4. RESPIRATORY: Breath sounds diminished at the bases. No rhonchi. No crackles. ABDOMEN: Soft, nontender. No mass palpable. LEGS: No edema. No swelling. NERVOUS SYSTEM: Higher functions as mentioned earlier. Moves all 4 limbs. Mild diffuse weakness. LYMPHATICS: No lymph node palpable in neck, axillae or groin. SKIN: Significant dilatation of the veins present. Minimal erythema noted. No tenderness noted. Pulsations noted. JOINTS: No active deforming arthropathy. LABS: Labs at this time show WBC 5.2, hemoglobin is 8.6, sodium 136, AST 76. ALT is 61. ASSESSMENT: 1. Left arm AV fistula with inability to do the dialysis. 2. Possible right lower lobe pneumonia. 3. History of recent bilateral pneumonia, right more than the left, including right upper lobe. 4. History of chronic kidney disease, end-stage renal disease. 5. Recent change in mental status, metabolic acidosis secondary to uremia. 6. History of papilledema involving the right optic nerve recently. 7. History of rhabdomyolysis recently. RECOMMENDATIONS AND DISCUSSION: In this 64-year-old gentleman who presented with multiple complex medical issues, at this time I recommend continuing the current medications. Consult Nephrology. Repeat labs. I would also recommend continuing the antibiotics. Infectious disease evaluation. The ultrasound shows extremely dilated veins at this time. Will continue to monitor. Prognosis is guarded because of multiple complex medical issues. A copy of this dictation is being forwarded to Dr. Han, who is the primary physician. MMODL / IJN: [id number] / MTDD
[2020-10-24] MEDS ORDERED: LOPERAMIDE 2 MG CAP PO PRN (21:08)
[2020-10-24] MEDS: cloNIDine HCL 0.1 MG TAB PO SCH (21:30)
[2020-10-25] MEDS: PIPERACILLIN-TAZOBACTAM 3.375 GM in SODIUM CHLORIDE 0.9% 100 ML IVPB SCH ×2 (04:01→12:12)
[2020-10-25] MEDS: cloNIDine HCL 0.1 MG TAB PO SCH ×3 (05:42→21:21)
[2020-10-25] MEDS: PANTOPRAZOLE 40 MG TABLET PO SCH (05:42)
[2020-10-25] MEDS ORDERED: SEVELAMER 800 MG TAB PO SCH ×3 (07:00→08:00)
[2020-10-25] MEDS ORDERED: ACETAMINOPHEN TAB 325 MG TAB PO PRN (07:10)
[2020-10-25] MEDS ORDERED: [UNRECOGNIZED DRUG - OTHER] PO SCH (09:00)
--- NOTE | 2020-10-25 09:17 | XR ---
EXAMINATION TYPE: XR chest 2V DATE OF EXAM: 10/25/2020 COMPARISON: 10/24/2020 HISTORY: 64 years Male. STUDY INDICATION GIVEN: pneumonia . TECHNIQUE: AP and lateral chest radiographs FINDINGS AND IMPRESSION: Left retrocardiac opacity without significant change likely representing pneumonia. Bibasilar subsegm ental atelectasis and mild interstitial opacities could be on the basis of mild pulmonary edema. There is bilateral left greater than right pleural effusion. No pneumothorax. Mild prominence of the cardiac silhouette. Normal mediastinal silhouette. Vascular calcifications pro ject over the intrathoracic aorta. No acute osseous abnormality.
[2020-10-25] MEDS: AZITHROMYCIN 500 MG in SODIUM CHLORIDE 0.9% 250 ML IVPB SCH (09:19)
[2020-10-25] MEDS: SEVELAMER 800 MG TAB PO SCH ×3 (09:19→17:13)
[2020-10-25] MEDS: FOLIC ACID-VIT B COMPLEX-VIT C 1 CAP PO SCH (09:20)
[2020-10-25] MEDS: DOXAZOSIN 2 MG TAB PO SCH ×2 (09:20→17:13)
[2020-10-25] MEDS: LACOSAMIDE 50 MG TABLET PO SCH ×3 (09:21→21:21)
[2020-10-25] MEDS: LANTHANUM 1000 MG PO SCH ×3 (09:21→17:13)
[2020-10-25] MEDS: ASPIRIN 81 MG PO SCH (09:21)
[2020-10-25] MEDS: amLODIPine 10 MG TAB PO SCH (09:22)
[2020-10-25] MEDS: carvediloL 12.5 MG TAB PO SCH ×2 (09:22→17:13)
--- NOTE | 2020-10-25 09:23 | P.NPCON ---
History of Present Illness - Reason for Consult end stage renal disease - History of Present Illness Reason for consultation: End-stage renal disease History of present illness: I sent patient is a 64-year-old male seen in initial consultation for end-stage renal disease. He is maintained on hemodialysis on Monday schedule via left upper extremity AV fistula. Patient was recently discharged from the hospital last week and at that time was admitted with altered mental status, uremia and pneumonia. He went to hemodialysis yesterday but there was concern of his left arm being swollen and that dialysis techs were not comfortable starting him on hemodialysis. He was advised to go to [facility] but was transferred here. Patient's vascular surgeon is Dr. Snyder who is out of [facility]. Patient states he had a stent placed in his access about 2 weeks ago. He currently denies any chest pain shortness of breath. He is awake and alert. No fever or chills. No vomiting or diarrhea. Potassium level 4.5 as of yesterday. Vital signs are stable. General: The patient appeared well nourished and normally developed. HEENT: Head exam is unremarkable. LUNGS: Breath sounds decreased. HEART: Rate and Rhythm are regular. ABDOMEN: Soft, no distention. EXTREMITITES: No edema. Past Medical History Past Medical History: Hypertension Additional Past Medical History / Comment(s): DIALYSIS ,,; pt. is a poor historian. History of Any Multi-Drug Resistant Organisms: None Reported Additional Past Surgical History / Comment(s): FISTULA, rigth side kidney re moval. Past Psychological History: No Psychological Hx Reported Smoking Status: Former smoker, Unknown if ever smoked Past Alcohol Use History: None Reported Past Drug Use History: None Reported - Past Family History Mother Family Medical History: Dementia, Hypertension Medications and Allergies Home Medications Medication Instructions Recorded Confirmed Type amLODIPine [Norvasc] 10 mg PO DAILY@0900 02/20/15 10/24/20 History Carvedilol [Coreg] 25 mg PO BID@0900,1700 10/15/20 10/24/20 History Doxazosin [Cardura] 2 mg PO BID@0900,1700 10/15/20 10/24/20 History Lanthanum Carbonate 1,000 mg PO TID@0800,1200,1700 10/15/20 10/24/20 History Patiromer Calcium Sorbitex 8.4 gm PO DAILY@0900 10/15/20 10/24/20 History [Veltassa] cloNIDine HCL [Catapres] 0.3 mg PO TID@0600,1400,2200 10/15/20 10/24/20 History Loperamide [Imodium] 2 mg PO QID PRN cap 10/22/20 10/24/20 Rx Amoxicillin/Potassium Clav 1 tab PO BID@0900,2100 10/24/20 10/24/20 History [Augmentin 500-125 Tablet] Aspirin 81 mg PO DAILY@0900 10/24/20 10/24/20 History Lacosamide [Vimpat] 50 mg PO TID@0900,1300,2100 10/24/20 10/24/20 History Omeprazole 20 mg PO DAILY@0600 10/24/20 10/24/20 History Prostat Sugar Free Liquid Protein 1 can PO BID@0900,1700 10/24/20 10/24/20 History Saba-Dwight (P-Srjeucz-F-Folic-Acid) 1 tab PO DAILY@0900 10/24/20 10/24/20 History Sevelamer [Renvela] 4,000 mg PO TID@0700,1100,1800 10/24/20 10/24/20 History Allergies Allergy/AdvReac Type Severity Reaction Status Date / Time Sulfa (Sulfonamide Allergy Rash/Hives Verified 10/24/20 20:43 Antibiotics) Physical Exam Vitals: Vital Signs Temp Pulse Pulse Resp BP BP Pulse Ox 10/25/20 08:00 98.3 F 73 16 120/62 96 10/25/20 07:49 97 10/25/20 01:44 98.3 F 76 17 126/66 96 10/24/20 22:00 97.6 F 75 18 161/76 98 10/24/20 19:01 73 16 134/80 97 10/24/20 15:05 98 F 78 18 147/83 97 Intake and Output 10/24/20 10/25/20 10/25/20 22:59 06:59 14:59 Other: # Voids 0 # Bowel Movements 1 Weight 66.5 kg Results - Lab Results Most recent lab results Calcium 8.7 mg/dL (8.4-10.2) 10/24/20 17:29 10/24/20 17:29 10/24/20 17:29 Assessment and Plan Plan: Assessment: 1. End-stage renal disease maintained on hemodialysis on Monday schedule via left upper extremity AV fistula. 2. Recent intervention of the AV fistula. Left upper extremity swollen. Patient's vascular surgeon is Dr. Snyder out of [facility]. 3. Recent pneumonia on antibiotics. 4. Hypertension with chronic kidney disease. Stable. 5. Chronic kidney disease mineral bone disease maintained on Renvela. 6. Anemia of chronic kidney disease. 7. Chronic hyperkalemia maintained on Veltassa outpatient. Plan: Patient did not receive hemodialysis yesterday due to concern of his vascular access. Check potassium level today. Add Grecthen. Vascular surgery consulted but will not be able to see the patient today. He will be transferred to [facility]. Above plan was discussed with the patient and the nurse. Thank you for the consultation. I will continue to follow the patient with you during his hospital stay.
[2020-10-25] MEDS ORDERED: DARBEPOETIN ALFA 40 MCG/0.4 ML SYRINGE SQ SCH (10:00)
[2020-10-25] MEDS: PATIROMER CALCIUM SORBITEX PO SCH (11:36)
[2020-10-25 13:39] LABS: ALT 44 U/L (4-49); AST 43 U/L (17-59); African American GFR (CKD) 7 (>60 ml/min/1.73 sqM); Albumin/Globulin Ratio 0.9; Alkaline Phosphatase 51 U/L (38-126); Anion Gap 9 mmol/L; Blood Urea Nitrogen 96 mg/dL (9-20); Calcium 8.5 mg/dL (8.4-10.2); Carbon Dioxide 19 mmol/L (22-30); Chloride 110 mmol/L (98-107); Globulin 2.2 g/dL; Glucose 97 mg/dL (74-99); Non-African American GFR(CKD) 6 (>60 ml/min/1.73 sqM); Sodium 138 mmol/L (137-145); Total Bilirubin 0.6 mg/dL (0.2-1.3); Total Protein 4.2 g/dL (6.3-8.2)
--- NOTE | 2020-10-25 14:02 | PN ---
PROGRESS NOTE DATE OF SERVICE: 10/25/2020 This 64-year-old gentleman with a past medical history of chronic kidney disease, had a left arm fistula. The patient has significant swelling of left arm fistula and staff at the dialysis center was some uncomfortable in accessing, so the patient was sent here. Apparently patient had vascular surgery procedure and recent stent placement also in [facility] and Nephrology, Dr. Fernando as well as vascular surgery recommend the patient be transferred to [facility] under the care of his previous physicians. The patient has massively enlarged dialysis fistula with a persistent bruit on the left arm. No chest pain. No palpitations. No fever. PHYSICAL EXAMINATION: Alert and oriented times three. Pulse 73, blood pressure 120/60, respirations 16, temperature 98.2, pulse ox 97% on room air. HEENT: Conjunctivae normal. Neck: No JVD. Cardiovascular: S1, S2 muffled. Respiration: Breath sounds diminished in the bases. A few scattered rhonchi and crackles. Abdomen: Soft, nontender. Legs are no edema. No swelling. Nervous system: No focal deficits. LABS: WBC 12.2, hemoglobin is 8.6, sodium 136, creatinine 6.97. ASSESSMENT: 1. Left arm fistula swelling and dilatation with inability to perform the dialysis. 2. Possible right lower lobe pneumonia. 3. History of recent bilateral pneumonia, right more than the left including the right upper lobe. 4. History of chronic kidney disease, end-stage renal disease. 5. Recent change in mental status acute metabolic encephalopathy secondary to uremia. 6. History of papilledema in the right optic nerve recently. 7. History of rhabdomyolysis recently. RECOMMENDATIONS AND DISCUSSION: Recommend to continue current medications, symptomatic treatment. Otherwise, at this time, I recommend follow closely with vascular surgery and Nephrology and pillowcase turner for possible transfer to [facility]. We will talk with the physician on- call. Prognosis guarded. Further recommendations to follow. MMODL / IJN: [id number] /
--- NOTE | 2020-10-25 23:51 | P.CONS ---
History of Present Illness - Reason for Consult Consult date: 10/25/20 pneumonia Requesting physician: Shawn Amaya - Chief Complaint left arm swelling x few days - History of Present Illness History of present illness : Patient is 64-year-old male who was recently admitted to this facility with mental status changes with concern for right upper lobe aspiration pneumonia patient was treated with Zosyn after stabilized and discharged on oral antibiotics patient to have a history of end- stage renal disease on hemodialysis Monday through the left arm AV fistula patient went for dialysis yesterday however noticed to have more swelling in the left arm dialysis nurses were not comfortable and subsequently sent the patient to the ER for further evaluation, patient currently denies having any fever or any chills the patient denies having any chest pain or shortness of breath did have occasional cough no sputum production denies having any pain to the left upper extremity did have some swelling but no redness on admission to the hospital the patient was afebrile he did have a normal white count Doppler ultrasound of the left upper extremity was negative for DVT chest x-ray was bilateral pneumonia however improved compared to recent exam patient was started on Zosyn and Zithromax admitted to the hospital infectious disease was consulted for further management Review of system: Positive point has been mentioned in HPI rest of the systems are negative Past medical history : Reviewed, documented below Past surgical history : Reviewed, documented below Social history: Reviewed, documented below Medications: Reviewed, as documented below GENERAL DESCRIPTION: Middle-aged male lying in bed, no distress. No tachypnea or accessory muscle of respiration use. HEENT: Shows Pallor , no scleral icterus. Oral mucous membrane is dry. NECK: Trachea central, no thyromegaly. LUNGS: Unlabored breathing. Decreased breath sound at the base. No wheeze or crackle. HEART: S1, S2, regular rate and rhythm. ABDOMEN: Soft, no tenderness , guarding or rigidity EXTREMITIES: No edema of feet. SKIN: No rash, no masses palpable. NEUROLOGICAL: The patient is awake, alert, oriented x3, mood and affect normal. LABS AND RADIOLOGY: Reviewed results see below Assessment : Patient with evidence of bilateral pneumonia seen on the chest x- ray in this patient who was recently to the hospital and concern for possible as piration pneumonia for the patient was treated with Zosyn and did have an improvement now presented to hospital with the swelling to the left upper extremity site of his AV fistula ultrasound was negative for any DVT Plan: 1-patient to continue with the Zosyn while inpatient 2-try to obtain a sputum for Gram stain culture 3-check inflammatory markers We will follow on clinical condition and cultures to further adjust medication if needed Thank you for this consultation we will follow the patient along with you Past Medical History Past Medical History: Hypertension Additional Past Medical History / Comment(s): DIALYSIS T,TH,SA; pt. is a poor historian. History of Any Multi-Drug Resistant Organisms: None Reported Additional Past Surgical History / Comment(s): FISTULA, rigth side kidney removal. Past Psychological History: No Psychological Hx Reported Smoking Status: Former smoker, Unknown if ever smoked Past Alcohol Use History: None Reported Past Drug Use History: None Reported - Past Family History Mother Family Medical History: Dementia, Hypertension Medications and Allergies Home Medications Medication Instructions Recorded Confirmed Type amLODIPine [Norvasc] 10 mg PO DAILY@0900 02/20/15 10/24/20 History Carvedilol [Coreg] 25 mg PO BID@0900,1700 10/15/20 10/24/20 History Doxazosin [Cardura] 2 mg PO BID@0900,1700 10/15/20 10/24/20 History Lanthanum Carbonate 1,000 mg PO TID@0800,1200,1700 10/15/20 10/24/20 History Patiromer Calcium Sorbitex 8.4 gm PO DAILY@0900 10/15/20 10/24/20 History [Veltassa] cloNIDine HCL [Catapres] 0.3 mg PO TID@0600,1400,2200 10/15/20 10/24/20 History Loperamide [Imodium] 2 mg PO QID PRN cap 10/22/20 10/24/20 Rx Amoxicillin/Potassium Clav 1 tab PO BID@0900,2100 10/24/20 10/24/20 History [Augmentin 500-125 Tablet] Aspirin 81 mg PO DAILY@0900 10/24/20 10/24/20 History Lacosamide [Vimpat] 50 mg PO TID@0900,1300,2100 10/24/20 10/24/20 History Omeprazole 20 mg PO DAILY@0600 10/24/20 10/24/20 History Prostat Sugar Free Liquid Protein 1 can PO BID@0900,1700 10/24/20 10/24/20 History Saba-Dwight (K-Pxcatuy-U-Folic-Acid) 1 tab PO DAILY@0900 10/24/20 10/24/20 History Sevelamer [Renvela] 4,000 mg PO TID@0700,1100,1800 10/24/20 10/24/20 History Allergies Allergy/AdvReac Type Severity Reaction Status Date / Time Sulfa (Sulfonamide Allergy Rash/Hives Verified 10/24/20 20:43 Antibiotics) Physical Exam Vitals: Vital Signs Temp Pulse Pulse Resp BP BP Pulse Ox 10/25/20 14:00 98.8 F 76 16 147/72 96 10/25/20 08:00 98.3 F 73 16 120/62 96 10/25/20 07:49 97 10/25/20 01:44 98.3 F 76 17 126/66 96 10/24/20 22:00 97.6 F 75 18 161/76 98 10/24/20 19:01 73 16 134/80 97 Intake and Output 10/25/20 10/25/20 10/25/20 06:59 14:59 22:59 Other: # Voids 0 # Bowel Movements 1 Results CBC & Chem 7: 10/24/20 17:29 10/25/20 10:25 Labs: Abnormal Lab Results - Last 24 Hours (Table) 10/24/20 10/24/20 10/24/20 Range/Units 17:29 17:29 17:29 RBC 2.71 L (4.30-5.90) m/uL Hgb 8.6 L (13.0-17.5) gm/dL Hct 26.8 L (39.0-53.0) % RDW 16.8 H (11.5-15.5) % Plt Count 83 L (150-450) k/uL Lymphocytes # 0.6 L (1.0-4.8) k/uL APTT 19.1 L (22.0-30.0) sec Sodium 136 L (137-145) mmol/L Chloride (98-107) mmol/L Carbon Dioxide (22-30) mmol/L BUN 85 H (9-20) mg/dL Creatinine 6.97 H (0.66-1.25) mg/dL AST 76 H (17-59) U/L ALT 61 H (4-49) U/L Total Protein 5.2 L (6.3-8.2) g/dL Albumin 2.6 L (3.5-5.0) g/dL 10/25/ Range/Units 10:25 RBC (4.30-5.90) m/uL Hgb (13.0-17.5) gm/dL Hct (39.0-53.0) % RDW (11.5-15.5) % Plt Count (150-450) k/uL Lymphocytes # (1.0-4.8) k/uL APTT (22.0-30.0) sec Sodium (137-145) mmol/L Chloride 110 H (98-107) mmol/L Carbon Dioxide 19 L (22-30) mmol/L BUN 96 H (9-20) mg/dL Creatinine 8.15 H* (0.66-1.25) mg/dL AST (17-59) U/L ALT (4-49) U/L Total Protein 4.2 L (6.3-8.2) g/dL Albumin 2.0 L (3.5-5.0) g/dL
[2020-10-26] MEDS: PIPERACILLIN-TAZOBACTAM 3.375 GM in SODIUM CHLORIDE 0.9% 100 ML IVPB SCH ×2 (01:39→14:18)
[2020-10-26] MEDS: PANTOPRAZOLE 40 MG TABLET PO SCH (05:15)
[2020-10-26] MEDS: cloNIDine HCL 0.1 MG TAB PO SCH ×3 (05:16→20:25)
[2020-10-26] MEDS: carvediloL 12.5 MG TAB PO SCH ×2 (08:21→17:11)
[2020-10-26] MEDS: ASPIRIN 81 MG PO SCH (08:21)
[2020-10-26] MEDS: DOXAZOSIN 2 MG TAB PO SCH ×2 (08:22→17:14)
[2020-10-26] MEDS: SEVELAMER 800 MG TAB PO SCH ×3 (08:22→17:14)
[2020-10-26] MEDS: FOLIC ACID-VIT B COMPLEX-VIT C 1 CAP PO SCH (08:22)
[2020-10-26] MEDS: PATIROMER CALCIUM SORBITEX PO SCH (08:23)
[2020-10-26] MEDS: amLODIPine 10 MG TAB PO SCH (08:23)
[2020-10-26] MEDS: LANTHANUM 1000 MG PO SCH ×3 (08:23→17:15)
[2020-10-26] MEDS: LACOSAMIDE 50 MG TABLET PO SCH ×3 (08:25→20:25)
[2020-10-26] MEDS: AZITHROMYCIN 500 MG in SODIUM CHLORIDE 0.9% 250 ML IVPB SCH (08:25)
--- NOTE | 2020-10-26 09:08 | P.PN ---
Subjective Patient is seen in follow-up for end-stage renal disease. He is maintained on hemodialysis on Monday schedule. Denies chest pain or shortness of breath. Vital signs are stable. General: The patient appeared well nourished and normally developed. HEENT: Head exam is unremarkable. Neck is without jugular venous distension. LUNGS: Breath sounds decreased. HEART: Rate and Rhythm are regular. ABDOMEN: Soft, no distention. EXTREMITITES: No edema. Objective - Vital Signs Vital signs: Vital Signs Temp 98.3 F 10/26/20 08:00 Pulse 65 10/26/20 08:00 Resp 18 10/26/20 08:00 BP 128/65 10/26/20 08:00 Pulse Ox 98 10/26/20 08:00 Intake & Output 10/25/20 10/26/20 10/26/20 18:59 06:59 18:59 Intake Total 250 Balance 250 Intake: Oral 250 Other: # Voids 0 # Bowel Movements 0 - Labs CBC & Chem 7: 10/24/20 17:29 10/25/20 10:25 Labs: Abnormal Lab Results - Last 24 Hours (Table) 10/25/20 Range/Units 10:25 Chloride 110 H (98-107) mmol/L Carbon Dioxide 19 L (22-30) mmol/L BUN 96 H (9-20) mg/dL Creatinine 8.15 H* (0.66-1.25) mg/dL Total Protein 4.2 L (6.3-8.2) g/dL Albumin 2.0 L (3.5-5.0) g/dL Microbiology - Last 24 Hours (Table) 10/24/20 19:43 Blood Culture - Preliminary Blood No Growth after 24 hours 10/24/20 19:43 Blood Culture - Preliminary Blood No Growth after 24 hours Assessment and Plan Plan: Assessment: 1. End-stage renal disease maintained on hemodialysis on Monday schedule via left upper extremity AV fistula. 2. Recent intervention of the AV fistula. Left upper extremity swollen. Patient's vascular surgeon is Dr. Snyder out of [facility]. 3. Recent pneumonia on antibiotics. 4. Hypertension with chronic kidney disease. Stable. 5. Chronic kidney disease mineral bone disease maintained on Renvela. 6. Anemia of chronic kidney disease maintained on Aranesp. 7. Chronic hyperkalemia maintained on Veltassa outpatient. 8. Metabolic acidosis secondary to chronic kidney disease. Expect improvement postdialysis. Plan: Patient has not been evaluated by vascular surgery for clearance of the AV fistula. Discussed with the nurse that patient needs dialysis today and if AV fistula cannot be used, then temporary catheter needs to be placed. Awaits transfer to [facility] once room available.
[2020-10-26 09:34] LABS: Basophils # (A) 0.01 X 10*3/uL (0.00-0.10); Basophils % (A) 0.2 %; Eosinophils # (A) 0.19 X 10*3/uL (0.04-0.35); Lymphocytes # (A) 0.74 X 10*3/uL (0.90-5.00); Lymphocytes % (A) 11.8 %; Monocytes # (A) 0.52 X 10*3/uL (0.20-1.00); Monocytes % (A) 8.3 %; Neutrophils # (A) 4.71 X 10*3/uL (1.80-7.70); Neutrophils % (A) 74.9 %
[2020-10-26 09:41] LABS: HCT 21.5 % (39.6-50.0); HGB 6.5 g/dL (13.0-17.0); MCHC 30.2 g/dL (32.0-37.0); MCV 102.4 fL (80.0-97.0); Mean Platelet Volume 11.6 fL (9.5-12.2); Platelet Count 119 X 10*3/uL (140-440); RDW 16.2 % (11.5-14.5); WBC 6.28 X 10*3/uL (4.50-10.00)
--- NOTE | 2020-10-26 12:20 | P.GSCN ---
History of Present Illness Consult date: 10/26/20 Reason for Consult: Swollen fistula Requesting physician: Wander Fernando History of present illness: This is 64-year-old male patient with a past medical history of end-stage renal disease on hemodialysis who states he was sent to the emergency department Monday from his hemodialysis for evaluation of left upper extremity swelling. He receives dialysis on Monday, , Monday schedule. The patient was just recently admitted to this hospital for treatment of altered mental status, uremia and pneumonia. 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 However at that time the fistula was working without any problems, and he underwent hemodialysis. The patient states he has been having swelling in that left upper extremity and he had seen his vascular surgeon Dr. Snyder out of [facility] who he thinks put a stent and within the last 2 weeks duration. Nephrology has seen patient and asked vascular surgery to assess left upper extremity AV fistula for hemodialysis. The patient is a poor historian, and unable to give accurate details. 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 The patient is able to move his left upper extremity, he denies any acute pain. He denies any shortness of breath or chest pain. Patient is currently undergoing hemodialysis with good flow, hemodialysis nurse states easily cannulated. Review of Systems A 14 point review of systems was completed all pertinent positives and negatives as stated in the HPI Past Medical History Past Medical History: Hypertension Additional Past Medical History / Comment(s): DIALYSIS ,,; pt. is a poor historian. History of Any Multi-Drug Resistant Organisms: None Reported Additional Past Surgical History / Comment(s): FISTULA, rigth side kidney removal. Past Psychological History: No Psychological Hx Reported Smoking Status: Former smoker, Unknown if ever smoked Past Alcohol Use History: None Reported Past Drug Use History: None Reported - Past Family History Mother Family Medical History: Dementia, Hypertension Medications and Allergies Home Medications Medication Instructions Recorded Confirmed Type amLODIPine [Norvasc] 10 mg PO DAILY@0900 02/20/15 10/24/20 History Carvedilol [Coreg] 25 mg PO BID@0900,1700 10/15/20 10/24/20 History Doxazosin [Cardura] 2 mg PO BID@0900,1700 10/15/20 10/24/20 History Lanthanum Carbonate 1,000 mg PO TID@0800,1200,1700 10/15/20 10/24/20 History Patiromer Calcium Sorbitex 8.4 gm PO DAILY@0900 10/15/20 10/24/20 History [Veltassa] cloNIDine HCL [Catapres] 0.3 mg PO TID@0600,1400,2200 10/15/20 10/24/20 History Loperamide [Imodium] 2 mg PO QID PRN cap 10/22/20 10/24/20 Rx Amoxicillin/Potassium Clav 1 tab PO BID@0900,2100 10/24/20 10/24/20 History [Augmentin 500-125 Tablet] Aspirin 81 mg PO DAILY@0900 10/24/20 10/24/20 History Lacosamide [Vimpat] 50 mg PO TID@0900,1300,2100 10/24/20 10/24/20 History Omeprazole 20 mg PO DAILY@0600 10/24/20 10/24/20 History Prostat Sugar Free Liquid Protein 1 can PO BID@0900,1700 10/24/20 10/24/20 History Saba-Dwight (M-Anchgkx-U-Folic-Acid) 1 tab PO DAILY@0900 10/24/20 10/24/20 History Sevelamer [Renvela] 4,000 mg PO TID@0700,1100,1800 10/24/20 10/24/20 History Allergies Allergy/AdvReac Type Severity Reaction Status Date / Time Sulfa (Sulfonamide Allergy Rash/Hives Verified 10/24/20 20:43 Antibiotics) Surgical - Exam Vital Signs Temp Pulse Resp BP Pulse Ox 98 F 78 18 147/83 97 10/24/20 15:05 10/24/20 15:05 10/24/20 15:05 10/24/20 15:05 10/24/20 15:05 General appearance: The patient is alert, oriented, in no acute distress. HET: Head is normocephalic and atraumatic. Neck: Supple without lymphadenopathy. Trachea midline. Heart: S1 S2. Regular rate and rhythm. Lungs: Clear to auscultation. Abdomen: Soft, nontender, nondistended. Extremities: Bilateral palpable radial pulses. Bilateral normal upper extremity range of motion. Left upper extremity with swelling, Left upper extremity fistula aneurysmal, good palpable thrill almost throughout. Dilated veins up to axilla/shoulder with palpable thrill. Neurological: No focal deficits. Strength and sensation are grossly intact. Results - Labs 10/26/20 04:49 10/25/20 10:25 Abnormal Lab Results - Last 24 Hours (Table) 10/25/20 Range/Units 10:25 Chloride 110 H (98-107) mmol/L Carbon Dioxide 19 L (22-30) mmol/L BUN 96 H (9-20) mg/dL Creatinine 8.15 H* (0.66-1.25) mg/dL Total Protein 4.2 L (6.3-8.2) g/dL Albumin 2.0 L (3.5-5.0) g/dL Microbiology - Last 24 Hours (Table) 10/24/20 19:43 Blood Culture - Preliminary Blood No Growth after 24 hours 10/24/20 19:43 Blood Culture - Preliminary Blood No Growth after 24 hours Diabetes panel 10/25/20 Range/Units 10:25 Sodium 138 (137-145) mmol/L Potassium 4.0 (3.5-5.1) mmol/L Chloride 110 H (98-107) mmol/L Carbon Dioxide 19 L (22-30) mmol/L BUN 96 H (9-20) mg/dL Creatinine 8.15 H* (0.66-1.25) mg/dL Glucose 97 (74-99) mg/dL Calcium 8.5 (8.4-10.2) mg/dL AST 43 (17-59) U/L ALT 44 (4-49) U/L Alkaline Phosphatase 51 (38-126) U/L Total Protein 4.2 L (6.3-8.2) g/dL Albumin 2.0 L (3.5-5.0) g/dL Calcium panel 10/25/20 Range/Units 10:25 Calcium 8.5 (8.4-10.2) mg/dL Albumin 2.0 L (3.5-5.0) g/dL Pituitary panel 10/25/20 Range/Units 10:25 Sodium 138 (137-145) mmol/L Potassium 4.0 (3.5-5.1) mmol/L Chloride 110 H (98-107) mmol/L Carbon Dioxide 19 L (22-30) mmol/L BUN 96 H (9-20) mg/dL Creatinine 8.15 H* (0.66-1.25) mg/dL Glucose 97 (74-99) mg/dL Calcium 8.5 (8.4-10.2) mg/dL Adrenal panel 10/25/20 Range/Units 10:25 Sodium 138 (137-145) mmol/L Potassium 4.0 (3.5-5.1) mmol/L Chloride 110 H (98-107) mmol/L Carbon Dioxide 19 L (22-30) mmol/L BUN 96 H (9-20) mg/dL Creatinine 8.15 H* (0.66-1.25) mg/dL Glucose 97 (74-99) mg/dL Calcium 8.5 (8.4-10.2) mg/dL Total Bilirubin 0.6 (0.2-1.3) mg/dL AST 43 (17-59) U/L ALT 44 (4-49) U/L Alkaline Phosphatase 51 (38-126) U/L Total Protein 4.2 L (6.3-8.2) g/dL Albumin 2.0 L (3.5-5.0) g/dL - Imaging Comments: Left upper extremity venous Doppler negative for DVT. Assessment and Plan Assessment: 1. End-stage renal disease on hemodialysis Plan: Dialysis access appears to be fine, access site cannulated easily and hemodialysis working well. No indication for any acute vascular surgical intervention. Continue dialysis as ordered. Patient needs to follow-up with vascular surgeon from [place] for upper extremity swelling. Thank you for this consultation, and allowing us take part in the plan of care o f your patient during his hospital stay The impression and plan of care has been dictated as directed. I performed a history and examination of this patient, discussed the same with the dictator. I agree with the dictator's note ,documented as a scribe. Any additional findings or plans will be noted.
[2020-10-26 12:41] LABS: African American GFR (CKD) 6.2 (60.0-200.0); Anion Gap 17.5 mmol/L (4.00-12.00); BUN/Creat Ratio 11.08 Ratio (12.00-20.00); Calcium 7.8 mg/dL (8.7-10.3); Carbon Dioxide 19.5 mmol/L (21.6-31.8); Non-African American GFR(CKD) 5.4 (60.0-200.0); Potassium 4.3 mmol/L (3.5-5.5)
--- NOTE | 2020-10-26 19:18 | PN ---
PROGRESS NOTE DATE OF SERVICE: 10/26/2020 REASON FOR FOLLOWUP: Pneumonia. INTERVAL HISTORY: The patient is afebrile. The patient is currently feeling better, breathing comfortably. Denies having any chest pain or shortness of breath. Occasional cough. No abdominal pain or diarrhea. PHYSICAL EXAMINATION: On examination, blood pressure 109/64, pulse of 68, temperature 97.4. He is 98% on room air. GENERAL DESCRIPTION: General description is middle-aged male lying in bed in no distress. RESPIRATORY SYSTEM: Unlabored breathing. Clear to auscultation anteriorly. HEART: S1, S2. Regular rate and rhythm. ABDOMEN: Soft. No tenderness. LABS: Hemoglobin is 6.5, white count 6.28, BUN of 103, creatinine 9.3. Blood culture has been negative. DIAGNOSTIC IMPRESSION AND PLAN: Patient with pneumonia, possible aspiration etiology, for which the patient is responding to the IV Zosyn; to continue. Transition to oral antibiotic on discharge and monitor his clinical course closely. MMODL / IJN: [id number] /
--- NOTE | 2020-10-26 21:47 | CT ---
EXAMINATION TYPE: CT upper extremity LT wo con DATE OF EXAM: 10/26/2020 COMPARISON: None HISTORY: left arm swelling CT DLP: 1595.6 mGycm Automated exposure control for dose reduction was used. Images obtained from the top of the shoulder to the distal metacarpals without contrast. The glenohumeral joint is intact. Shoulder joint spaces are fairly normal. Elbow joint appears intact . There is no sign of elbow joint effusion. Radius and ulna appear intact. Scapula appears normal. Th e carpal bones appear intact. There is a long tubular structure on the anterior humerus consistent wi th a dilated dialysis vessel Extending from the shoulder to the elbow. This is markedly aneurysmal an d measures up to 4.6 cm in diameter. There is some atherosclerotic vascular calcification.There is diffuse subcutaneous edema around the f orearm. There is also subcutaneous edema around the left hip joint I see no focal bone destruction. E tejas fluid in the forearm measures up to 1.7 cm in thickness. IMPRESSION: Dilated dialysis vessel in the upper arm. Extensive subcutaneous edema around the forearm and to a le sser extent the upper arm.
[2020-10-27] MEDS: PIPERACILLIN-TAZOBACTAM 3.375 GM in SODIUM CHLORIDE 0.9% 100 ML IVPB SCH ×2 (00:04→15:12)
[2020-10-27] MEDS: PANTOPRAZOLE 40 MG TABLET PO SCH (04:15)
--- NOTE | 2020-10-27 04:36 | P.PN ---
Subjective Progress Note Date: 10/26/20 This is a 64-year-old male who was recently admitted with significant swelling noted to the left arm fistula and is being closely monitored. Patient is maintained on hemodialysis with a left arm fistula and nursing staff at the dialysis center were uncomfortable with accessing and sent here for further evaluation. Nephrology consulted along with vascular surgery and currently receiving hemodialysis today at the bedside. Patient continues to have significant left arm swelling and ordering CT of the left arm and report is pending. Review of systems: Constitutional: No reports of fatigue, fever, or chills Cardiovascular: No reports of chest pain or palpitations Respiratory: No reports of shortness of breath or cough GI: No reports of nausea, vomiting, or diarrhea : No reports of dysuria or retention Neurovascular: No reports of weakness or numbness All medications have been reviewed Objective - Vital Signs Vital signs: Vital Signs Temp 98.3 F 10/26/20 08:00 Pulse 65 10/26/20 08:00 Resp 18 10/26/20 08:00 BP 128/65 10/26/20 08:00 Pulse Ox 98 10/26/20 08:00 Intake & Output 10/25/20 10/26/20 10/26/20 18:59 06:59 18:59 Intake Total 250 Balance 250 Intake: Oral 250 Other: # Voids 0 # Bowel Movements 0 - Exam Gen: This is a 64-year-old male awake, alert and oriented 2-3, thin built. Temp is 98.3F, pulse is 65, respirations are 18, blood pressure is 128/65, oxygen saturation is 98% on room air. HEENT: Head is atraumatic, normocephalic. Pupils equal, round. Sclerae is anicteric. NECK: Supple. No JVD. No lymphadenopathy. No thyromegaly. LUNGS: diminished breath sounds bilaterally with some scattered rhonchi noted. No intercostal retractions. HEART: S1, S2 muffled ABDOMEN: Soft. Bowel sounds are present. No masses. No tenderness. EXTREMITIES: No pedal edema. No calf tenderness. left upper extremity swelling noted and dialysis fistula noted with a thrill and currently receiving hemodialysis NEUROLOGICAL: Patient is awake, alert and oriented x2-3. no focal deficits noted. - Labs CBC & Chem 7: 10/26/20 04:49 10/26/20 04:49 Labs: Abnormal Lab Results - Last 24 Hours (Table) 10/25/20 10/26/20 10/26/20 Range/Units 10:25 04:49 04:49 RBC 2.10 L (4.40-5.60) X 10*6/uL Hgb 6.5 L* (13.0-17.0) g/dL Hct 21.5 L (39.6-50.0) % MCV 102.4 H (80.0-97.0) fL MCHC 30.2 L (32.0-37.0) g/dL RDW 16.2 H (11.5-14.5) % Plt Count 119 L (140-440) X 10*3/uL Plt Count Comment A Immature Gran # 0.11 H (0.00-0.04) X 10*3/uL Lymphocytes # 0.74 L (0.90-5.00) X 10*3/uL Chloride 110 H (98-107) mmol/L Carbon Dioxide 19 L (22-30) mmol/L BUN 96 H (9-20) mg/dL Creatinine 8.15 H* (0.66-1.25) mg/dL C-Reactive Protein (0.0-0.8) mg/dL Total Protein 4.2 L (6.3-8.2) g/dL Albumin 2.0 L (3.5-5.0) g/dL Procalcitonin 11.12 H (0.02-0.09) ng/mL 10/26/20 Range/Units 04:49 RBC (4.40-5.60) X 10*6/uL Hgb (13.0-17.0) g/dL Hct (39.6-50.0) % MCV (80.0-97.0) fL MCHC (32.0-37.0) g/dL RDW (11.5-14.5) % Plt Count (140-440) X 10*3/uL Plt Count Comment Immature Gran # (0.00-0.04) X 10*3/uL Lymphocytes # (0.90-5.00) X 10*3/uL Chloride (98-107) mmol/L Carbon Dioxide (22-30) mmol/L BUN (9-20) mg/dL Creatinine (0.66-1.25) mg/dL C-Reactive Protein 6.8 H (0.0-0.8) mg/dL Total Protein (6.3-8.2) g/dL Albumin (3.5-5.0) g/dL Procalcitonin (0.02-0.09) ng/mL Microbiology - Last 24 Hours (Table) 10/24/20 19:43 Blood Culture - Preliminary Blood No Growth after 24 hours 10/24/20 19:43 Blood Culture - Preliminary Blood No Growth after 24 hours Assessment and Plan Assessment: Left arm fistula swelling and dilatation with inability to perform dialysis Possible right lower lobe pneumonia History of recent bilateral pneumonia of right more than left including the right upper lobe history of chronic kidney disease, end-stage renal disease Recent change in mental status acute metabolic encephalopathy secondary to uremia 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 Nephrology and vascular surgery following. Vascular surgery evaluated the patient for possible temporary cath placement as the dialysis center of [facility] was uncomfortable with accessing the left fistula given its significant swelling and was accessed by the dialysis nurse here at [facility] with no difficulties. Dialysis nurse here states the swelling of the left upper extremity is chronic for this patient. Patient will need outpatient follow up with vascular surgeon out of [place] if requiring revision of the fistula. Patient had left upper extremity CT showing dilated dialysis vessel and significant subcutaneous edema noted around the forearm and lesser of the upper arm. Patient continues on IV antibiotics with infectious disease following. Patient refusing return to rehab. Will have PT/OT evaluate the patient. Prognosis is guarded.
[2020-10-27] MEDS: cloNIDine HCL 0.1 MG TAB PO SCH ×3 (05:42→22:06)
[2020-10-27 05:47] LABS: Anisocytosis Slight; Basophils % (A) 0 %; Eosinophils # (A) 0.2 k/uL (0-0.7); Eosinophils % (A) 3 %; HCT 25.3 % (39.0-53.0); HGB 8.2 gm/dL (13.0-17.5); Hypochromasia Moderate; Lymphocytes # (A) 0.8 k/uL (1.0-4.8); Lymphocytes % (A) 15 %; MCH 32.3 pg (25.0-35.0); MCHC 32.3 g/dL (31.0-37.0); MCV 100.1 fL (80.0-100.0); Macrocytosis Slight; Mean Platelet Volume 9.2; Monocytes # (A) 0.3 k/uL (0-1.0); Monocytes % (A) 5 %; Neutrophils # (A) 3.8 k/uL (1.3-7.7); Neutrophils % (A) 75 %; Poikilocytosis Slight; RBC 2.53 m/uL (4.30-5.90); RDW 16.3 % (11.5-15.5); WBC 5.1 k/uL (3.8-10.6)
[2020-10-27 05:49] LABS: Platelet Count 130 k/uL (150-450)
[2020-10-27 06:20] LABS: African American GFR (CKD) 10 (>60 ml/min/1.73 sqM); Anion Gap 9 mmol/L; Blood Urea Nitrogen 67 mg/dL (9-20); Calcium 8.9 mg/dL (8.4-10.2); Carbon Dioxide 21 mmol/L (22-30); Chloride 113 mmol/L (98-107); Glucose 92 mg/dL (74-99); Non-African American GFR(CKD) 8 (>60 ml/min/1.73 sqM); Potassium 4.2 mmol/L (3.5-5.1); Sodium 143 mmol/L (137-145)
[2020-10-27] MEDS: carvediloL 12.5 MG TAB PO SCH ×2 (08:44→18:27)
[2020-10-27] MEDS: amLODIPine 10 MG TAB PO SCH (08:44)
[2020-10-27] MEDS: PATIROMER CALCIUM SORBITEX PO SCH (08:45)
[2020-10-27] MEDS: LANTHANUM 1000 MG PO SCH ×3 (08:45→17:21)
[2020-10-27] MEDS: DOXAZOSIN 2 MG TAB PO SCH ×2 (08:45→18:27)
[2020-10-27] MEDS: SEVELAMER 800 MG TAB PO SCH ×3 (09:13→18:28)
[2020-10-27] MEDS: ONDANSETRON 4 MG/2 ML VIAL IVP PRN ×2 (09:13→18:54)
[2020-10-27] MEDS: FOLIC ACID-VIT B COMPLEX-VIT C 1 CAP PO SCH (09:13)
[2020-10-27] MEDS: ASPIRIN 81 MG PO SCH (09:14)
[2020-10-27] MEDS: LACOSAMIDE 50 MG TABLET PO SCH ×3 (09:14→21:46)
--- NOTE | 2020-10-27 09:32 | P.PN ---
Subjective Patient is seen in follow-up for end-stage renal disease. He is maintained on hemodialysis on Monday schedule. Denies chest pain or shortness of breath. Tolerating dialysis well. Access working fine. Vital signs are stable. General: The patient appeared well nourished and normally developed. HEENT: Head exam is unremarkable. Neck is without jugular venous distension. LUNGS: Breath sounds decreased. HEART: Rate and Rhythm are regular. ABDOMEN: Soft, no distention. EXTREMITITES: No edema. Objective - Vital Signs Vital signs: Vital Signs Temp 97.8 F 10/27/20 08:00 Pulse 99 10/27/20 08:00 Resp 18 10/27/20 08:00 BP 91/53 10/27/20 08:00 Pulse Ox 91 L 10/27/20 08:00 Intake & Output 10/26/20 10/27/20 10/27/20 18:59 06:59 18:59 Intake Total 850 580 Output Total 2000 Balance -1150 580 Intake: Intake, IV Titration 100 Amount Piperacillin-Tazobactam 3 100 .375 gm In Sodium Chloride 0.9% 100 ml @ 25 mls/hr IVPB Q12H [facility] Rx# :[id number] Oral 540 480 Blood Product 310 Rc As-1 Unit 310 [id number] Output: Hemodialysis 2000 Other: # Voids 0 0 # Bowel Movements 1 0 - Labs CBC & Chem 7: 10/27/20 05:30 10/27/20 05:30 Labs: Abnormal Lab Results - Last 24 Hours (Table) 10/26/20 10/26/20 10/26/20 Range/Units 04:49 04:49 04:49 RBC 2.10 L (4.40-5.60) X 10*6/uL Hgb 6.5 L* (13.0-17.0) g/dL Hct 21.5 L (39.6-50.0) % MCV 102.4 H (80.0-97.0) fL MCHC 30.2 L (32.0-37.0) g/dL RDW 16.2 H (11.5-14.5) % Plt Count 119 L (140-440) X 10*3/uL Plt Count Comment A Immature Gran # 0.11 H (0.00-0.04) X 10*3/uL Lymphocytes # 0.74 L (0.90-5.00) X 10*3/uL Chloride (98-107) mmol/L Carbon Dioxide (21.6-31.8) mmol/L Anion Gap (4.00-12.00) mmol/L BUN (9.0-27.0) mg/dL Creatinine (0.6-1.5) mg/dL Est GFR (CKD-EPI)AfAm (60.0-200.0) Est GFR (CKD-EPI)NonAf (60.0-200.0) BUN/Creatinine Ratio (12.00-20.00) Ratio Calcium (8.7-10.3) mg/dL C-Reactive Protein 6.8 H (0.0-0.8) mg/dL Procalcitonin 11.12 H (0.02-0.09) ng/mL Crossmatch 10/26/20 10/26/20 10/27/20 Range/Units 04:49 10:07 05:30 RBC 2.53 L (4.40-5.60) X 10*6/uL Hgb 8.2 L (13.0-17.0) g/dL Hct 25.3 L (39.6-50.0) % MCV 100.1 H (80.0-97.0) fL MCHC (32.0-37.0) g/dL RDW 16.3 H (11.5-14.5) % Plt Count 130 L D (140-440) X 10*3/uL Plt Count Comment Immature Gran # (0.00-0.04) X 10*3/uL Lymphocytes # 0.8 L (0.90-5.00) X 10*3/uL Chloride (98-107) mmol/L Carbon Dioxide 19.5 L (21.6-31.8) mmol/L Anion Gap 17.50 H (4.00-12.00) mmol/L BUN 103.0 H* (9.0-27.0) mg/dL Creatinine 9.3 H* (0.6-1.5) mg/dL Est GFR (CKD-EPI)AfAm 6.2 L (60.0-200.0) Est GFR (CKD-EPI)NonAf 5.4 L (60.0-200.0) BUN/Creatinine Ratio 11.08 L (12.00-20.00) Ratio Calcium 7.8 L (8.7-10.3) mg/dL C-Reactive Protein (0.0-0.8) mg/dL Procalcitonin (0.02-0.09) ng/mL Crossmatch See Detail 10/27/20 Range/Units 05:30 RBC (4.40-5.60) X 10*6/uL Hgb (13.0-17.0) g/dL Hct (39.6-50.0) % MCV (80.0-97.0) fL MCHC (32.0-37.0) g/dL RDW (11.5-14.5) % Plt Count (140-440) X 10*3/uL Plt Count Comment Immature Gran # (0.00-0.04) X 10*3/uL Lymphocytes # (0.90-5.00) X 10*3/uL Chloride 113 H (98-107) mmol/L Carbon Dioxide 21 L (21.6-31.8) mmol/L Anion Gap (4.00-12.00) mmol/L BUN 67 H (9.0-27.0) mg/dL Creatinine 6.50 H (0.6-1.5) mg/dL Est GFR (CKD-EPI)AfAm (60.0-200.0) Est GFR (CKD-EPI)NonAf (60.0-200.0) BUN/Creatinine Ratio (12.00-20.00) Ratio Calcium (8.7-10.3) mg/dL C-Reactive Protein (0.0-0.8) mg/dL Procalcitonin (0.02-0.09) ng/mL Crossmatch Microbiology - Last 24 Hours (Table) 10/24/20 19:43 Blood Culture - Preliminary Blood No Growth after 48 hours 10/24/20 19:43 Blood Culture - Preliminary Blood No Growth after 48 hours Assessment and Plan Plan: Assessment: 1. End-stage renal disease maintained on hemodialysis on Monday schedule via left upper extremity AV fistula. 2. Recent intervention of the AV fistula. Left upper extremity swollen. Vascular axis was cleared to be used by vascular surgery. No problems with dialysis yesterday or today. 3. Recent pneumonia on antibiotics. 4. Hypertension with chronic kidney disease. Stable. 5. Chronic kidney disease mineral bone disease maintained on Renvela. 6. Anemia of chronic kidney disease maintained on Aranesp. 7. Chronic hyperkalemia maintained on Veltassa outpatient. 8. Metabolic acidosis secondary to chronic kidney disease. Improved postdialysis. Plan: Currently seen was undergoing hemodialysis. Next treatment on . Patient to follow-up with his vascular surgeon, Dr. Snyder out of [facility], upon discharge.
--- NOTE | 2020-10-27 10:16 | P.PN ---
Subjective Progress Note Date: 10/27/20 Principal diagnosis: Left upper extremity swelling Patient seen and examined lying in bed. No acute changes through the night. He did have a drop in his hemoglobin yesterday to 6.5 and was given 1 unit of PRBC transfusion. Repeat hemoglobin today is 8.2. He was having complaints of some dark tarry stool 1 episode. He underwent hemodialysis yesterday without any difficulty with cannulation and treatment. He again is undergoing hemodialysis today without any difficulty. Objective - Vital Signs Vital signs: Vital Signs Temp 97.8 F 10/27/20 08:00 Pulse 99 10/27/20 08:00 Resp 18 10/27/20 08:00 BP 91/53 10/27/20 08:00 Pulse Ox 91 L 10/27/20 08:00 Intake & Output 10/26/20 10/27/20 10/27/20 18:59 06:59 18:59 Intake Total 850 580 Output Total 2000 Balance -1150 580 Intake: Intake, IV Titration 100 Amount Piperacillin-Tazobactam 3 100 .375 gm In Sodium Chloride 0.9% 100 ml @ 25 mls/hr IVPB Q12H [facility] Rx# :[id number] Oral 540 480 Blood Product 310 Rc As-1 Unit 310 [id number] Output: Hemodialysis 2000 Other: # Voids 0 0 # Bowel Movements 1 0 - Exam General appearance: The patient is alert, oriented, in no acute distress. HET: Head is normocephalic and atraumatic. Neck: Supple without lymphadenopathy. Trachea midline. Heart: S1 S2. Regular rate and rhythm. Lungs: Clear to auscultation. Extremities: Normal skin color and turgor. Left upper extremity with swelling, AV fistula aneurysmal. Neurological: No focal deficits. Strength and sensation are grossly intact. - Labs CBC & Chem 7: 10/27/20 05:30 10/27/20 05:30 Labs: Abnormal Lab Results - Last 24 Hours (Table) 10/26/20 10/26/20 10/26/20 Range/Units 04:49 04:49 10:07 RBC (4.30-5.90) m/uL Hgb (13.0-17.5) gm/dL Hct (39.0-53.0) % MCV (80.0-100.0) fL RDW (11.5-15.5) % Plt Count (150-450) k/uL Lymphocytes # (1.0-4.8) k/uL Chloride (98-107) mmol/L Carbon Dioxide 19.5 L (21.6-31.8) mmol/L Anion Gap 17.50 H (4.00-12.00) mmol/L BUN 103.0 H* (9.0-27.0) mg/dL Creatinine 9.3 H* (0.6-1.5) mg/dL Est GFR (CKD-EPI)AfAm 6.2 L (60.0-200.0) Est GFR (CKD-EPI)NonAf 5.4 L (60.0-200.0) BUN/Creatinine Ratio 11.08 L (12.00-20.00) Ratio Calcium 7.8 L (8.7-10.3) mg/dL Procalcitonin 11.12 H (0.02-0.09) ng/mL Crossmatch See Detail 10/27/20 10/27/20 Range/Units 05:30 05:30 RBC 2.53 L (4.30-5.90) m/uL Hgb 8.2 L (13.0-17.5) gm/dL Hct 25.3 L (39.0-53.0) % MCV 100.1 H (80.0-100.0) fL RDW 16.3 H (11.5-15.5) % Plt Count 130 L D (150-450) k/uL Lymphocytes # 0.8 L (1.0-4.8) k/uL Chloride 113 H (98-107) mmol/L Carbon Dioxide 21 L (21.6-31.8) mmol/L Anion Gap (4.00-12.00) mmol/L BUN 67 H (9.0-27.0) mg/dL Creatinine 6.50 H (0.6-1.5) mg/dL Est GFR (CKD-EPI)AfAm (60.0-200.0) Est GFR (CKD-EPI)NonAf (60.0-200.0) BUN/Creatinine Ratio (12.00-20.00) Ratio Calcium (8.7-10.3) mg/dL Procalcitonin (0.02-0.09) ng/mL Crossmatch Microbiology - Last 24 Hours (Table) 08/14/21 19:43 Blood Culture - Preliminary Blood No Growth after 48 hours 10/24/20 19:43 Blood Culture - Preliminary Blood No Growth after 48 hours Assessment and Plan Assessment: 1. End-stage renal disease on hemodialysis Plan: Dialysis access appears to be fine, access site cannulated easily and hemodialysis working well, now on his second treatment. No indication for any acute vascular surgical intervention. Continue dialysis as ordered. Patient needs to follow-up with vascular surgeon from [place] for upper extremity swelling. Thank you for this consultation, vascular surgery will sign off at this time. The impression and plan of care has been dictated as directed. I performed a history and examination of this patient, discussed the same with the dictator. I agree with the dictator's note ,documented as a scribe. Any additional findings or plans will be noted.
[2020-10-27] MEDS: AZITHROMYCIN 500 MG in SODIUM CHLORIDE 0.9% 250 ML IVPB SCH (11:36)
--- NOTE | 2020-10-27 12:29 | P.CONS ---
History of Present Illness - Reason for Consult Consult date: 10/27/20 Melena, anemia Requesting physician: Shawn Amaya - Chief Complaint Left upper extremity swelling - History of Present Illness This is 64-year-old male patient with a past medical history of end-stage renal disease on hemodialysis who states he was sent to the emergency department Monday from his hemodialysis for evaluation of left upper extremity swelling. He receives dialysis on Monday, , Monday schedule. The patient was just recently admitted to this hospital for treatment of altered mental status, uremia and pneumonia. 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 However at that time the fistula was working without any problems, and he underwent hemodialysis. The patient states he has been having swelling in that left upper extremity and he had seen his vascular surgeon Dr. Snyder out of [facility] who he thinks put a stent and within the last 2 weeks duration. The patient is able to move his left upper extremity, he denies any acute pain. He denies any shortness of breath or chest pain. Patient is currently undergoing hemodialysis with good flow, hemodialysis nurse states easily cannulated. Patient was noted to have a drop in his hemoglobin yesterday to 6.5, he received 1 unit of PRBC transfusion. Today repeat hemoglobin is 8.2. He had a dark tarry stool reported this morning. He denies any abdominal pain, however states he has some nausea but no vomiting. He denies any NSAID use, he does take a daily low-dose aspirin, no history of peptic ulcer disease, states he did have an EGD many many years ago. He states once in a while he has some acid reflux. He states his last colonoscopy was greater than 5 years ago and was within normal limits. He does have a history of chronic anemia. patient was seen later in the afternoon after an 18 was called, patient had approximately 300 mL of dark red emesis. Review of Systems REVIEW OF SYSTEMS: CARDIOPULMONARY: No chest pain or shortness of breath. Gastrointestinal: No abdominal pain. Nausea, no vomiting. No hematemesis, coffee-ground emesis. No rectal bleeding, reported dark black tarry stool today. GENITOURINARY: No dysuria or hematuria. MUSCULOSKELETAL: Reports normal range of motion., Joint pain. Left upper extremity swelling SKIN: No rashes. No jaundice. ENDOCRINE: No chills, fevers. No excessive weight gain or loss. No polydipsia or polyuria. PSYCHIATRIC: Unremarkable. NEUROLOGY: No change in mental status. Denies dizziness, headache. ENT: Vision unremarkable. CONSTITUTIONAL: No recent weight loss. No fever, chills, night sweats. Past Medical History Past Medical History: Hypertension Additional Past Medical History / Comment(s): DIALYSIS T,TH,SA; pt. is a poor historian. History of Any Multi-Drug Resistant Organisms: None Reported Additional Past Surgical History / Comment(s): FISTULA, rigth side kidney removal. Past Psychological History: No Psychological Hx Reported Smoking Status: Former smoker, Unknown if ever smoked Past Alcohol Use History: None Reported Past Drug Use History: None Reported - Past Family History Mother Family Medical History: Dementia, Hypertension Medications and Allergies Home Medications Medication Instructions Recorded Confirmed Type amLODIPine [Norvasc] 10 mg PO DAILY@0900 02/20/15 10/24/20 History Carvedilol [Coreg] 25 mg PO BID@0900,1700 10/15/20 10/24/20 History Doxazosin [Cardura] 2 mg PO BID@0900,1700 10/15/20 10/24/20 History Lanthanum Carbonate 1,000 mg PO TID@0800,1200,1700 10/15/20 10/24/20 History Patiromer Calcium Sorbitex 8.4 gm PO DAILY@0900 10/15/20 10/24/20 History [Veltassa] cloNIDine HCL [Catapres] 0.3 mg PO TID@0600,1400,2200 10/15/20 10/24/20 History Loperamide [Imodium] 2 mg PO QID PRN cap 10/22/20 10/24/20 Rx Amoxicillin/Potassium Clav 1 tab PO BID@0900,2100 10/24/20 10/24/20 History [Augmentin 500-125 Tablet] Aspirin 81 mg PO DAILY@0900 10/24/20 10/24/20 History Lacosamide [Vimpat] 50 mg PO TID@0900,1300,2100 10/24/20 10/24/20 History Omeprazole 20 mg PO DAILY@0600 10/24/20 10/24/20 History Prostat Sugar Free Liquid Protein 1 can PO BID@0900,1700 10/24/20 10/24/20 History Saba-Dwight (H-Gpuknay-Q-Folic-Acid) 1 tab PO DAILY@0900 10/24/20 10/24/20 History Sevelamer [Renvela] 4,000 mg PO TID@0700,1100,1800 10/24/20 10/24/20 History Allergies Allergy/AdvReac Type Severity Reaction Status Date / Time Sulfa (Sulfonamide Allergy Rash/Hives Verified 10/24/20 20:43 Antibiotics) Physical Exam Vitals: Vital Signs Temp Pulse Pulse Resp BP BP Pulse Ox 10/27/20 08:00 97.8 F 99 18 91/53 91 L 10/27/20 02:55 98.9 F 77 18 144/75 96 10/26/20 22:30 96 10/26/20 20:00 98.2 F 75 17 134/65 98 10/26/20 14:49 68 18 109/64 10/26/20 14:00 97.4 F L 72 18 119/64 98 10/26/20 12:43 97.5 F L 66 16 97/55 99 10/26/20 12:41 97.5 F L 61 16 95/52 99 10/26/20 12:11 97.0 F L 64 17 97/57 98 10/26/20 12:01 97.0 F L 68 17 107/60 98 Intake and Output 10/26/20 10/27/20 10/27/20 22:59 06:59 14:59 Intake Total 540 580 Balance 540 580 Intake: Intake, IV Titration 100 Amount Piperacillin-Tazobactam 3 100 .375 gm In Sodium Chloride 0.9% 100 ml @ 25 mls/hr IVPB Q12H [facility] Rx# :[id number] Oral 540 480 Other: # Voids 0 0 # Bowel Movements 1 0 Results CBC & Chem 7: 10/27/20 05:30 10/27/20 05:30 Labs: Abnormal Lab Results - Last 24 Hours (Table) 10/26/20 10/26/20 10/26/20 Range/Units 04:49 04:49 10:07 RBC (4.30-5.90) m/uL Hgb (13.0-17.5) gm/dL Hct (39.0-53.0) % MCV (80.0-100.0) fL RDW (11.5-15.5) % Plt Count (150-450) k/uL Lymphocytes # (1.0-4.8) k/uL Chloride (98-107) mmol/L Carbon Dioxide 19.5 L (21.6-31.8) mmol/L Anion Gap 17.50 H (4.00-12.00) mmol/L BUN 103.0 H* (9.0-27.0) mg/dL Creatinine 9.3 H* (0.6-1.5) mg/dL Est GFR (CKD-EPI)AfAm 6.2 L (60.0-200.0) Est GFR (CKD-EPI)NonAf 5.4 L (60.0-200.0) BUN/Creatinine Ratio 11.08 L (12.00-20.00) Ratio Calcium 7.8 L (8.7-10.3) mg/dL Procalcitonin 11.12 H (0.02-0.09) ng/mL Crossmatch See Detail 10/27/20 10/27/20 Range/Units 05:30 05:30 RBC 2.53 L (4.30-5.90) m/uL Hgb 8.2 L (13.0-17.5) gm/dL Hct 25.3 L (39.0-53.0) % MCV 100.1 H (80.0-100.0) fL RDW 16.3 H (11.5-15.5) % Plt Count 130 L D (150-450) k/uL Lymphocytes # 0.8 L (1.0-4.8) k/uL Chloride 113 H (98-107) mmol/L Carbon Dioxide 21 L (21.6-31.8) mmol/L Anion Gap (4.00-12.00) mmol/L BUN 67 H (9.0-27.0) mg/dL Creatinine 6.50 H (0.6-1.5) mg/dL Est GFR (CKD-EPI)AfAm (60.0-200.0) Est GFR (CKD-EPI)NonAf (60.0-200.0) BUN/Creatinine Ratio (12.00-20.00) Ratio Calcium (8.7-10.3) mg/dL Procalcitonin (0.02-0.09) ng/mL Crossmatch Microbiology - Last 24 Hours (Table) 10/24/20 19:43 Blood Culture - Preliminary Blood No Growth after 48 hours 10/24/20 19:43 Blood Culture - Preliminary Blood No Growth after 48 hours Comments: Left upper extremity ultrasound negative for DVT CT of the left upper extremity shows soft tissue swelling. Enlarged AV fistula. Assessment and Plan (1) Melena Narrative/Plan: 64-year-old male with multiple comorbidities including end-stage renal disease on hemodialysis who came into the emergency department for left upper extremity swelling. He has been seen and evaluated by vascular surgery with no vascular surgical intervention indicated. The patient has a history of chronic anemia. GI was consult for anemia with reports of a black tarry stool. He has no previous history of peptic ulcer disease, no use of NSAIDs, he does take a low- dose baby aspirin daily, no anticoagulation, he has no history of previous EGD, and his last endoscopy was greater than 5 years ago which she states was normal. On admission he was noted to have a hemoglobin of 8.6, it dropped to 6.5 yesterday and he received 1 unit of PRBC transfusion. Today's repeat is 8.2. He denies any abdominal pain or vomiting, but he is complaining of nausea. Likely we are dealing with an upper GI source of blood loss on top of chronic anemia. Possible etiologies could include AVM, peptic ulcer disease, gastritis, esophagitis, or other etiology. Would recommend upper endoscopy. Current Visit: Yes Status: Acute Code(s): K92.1 - MELENA SNOMED Code(s): 6471334 (2) Chronic anemia Current Visit: Yes Status: Acute Code(s): D64.9 - ANEMIA, UNSPECIFIED SNOMED Code(s): 726249227 (3) End-stage renal disease on hemodialysis Current Visit: Yes Status: Acute Code(s): N18.6 - END STAGE RENAL DISEASE; Z99.2 - DEPENDENCE ON RENAL DIALYSIS SNOMED Code(s): 233630335 Plan: 1. Continue symptomatic and supportive care 2. Repeat stat CBC 3. Agree with transfer to ICU 4. NG tube with intermittent suction NG tube 4. Daily CBC, transfuse for hemoglobin less than 7 5. Protonix 40 mg IV twice a day 6. Antiemetics as needed 7. Hemodialysis as ordered per nephrology 8. nothing by mouth 9. Recommend EGD, procedure discussed with patient in detail including risks and benefits. Patient is willing to proceed with procedure, tentatively planned for tomorrow Thank you for this consultation, we will continue to follow. Dr. Mackenzie Mcdaniel I agree with the dictator's note, documented as a scribe by Valeria Wilkerson.
[2020-10-27] MEDS ORDERED: PANTOPRAZOLE 40 MG/10 ML VIAL IVP ONE (13:37)
--- NOTE | 2020-10-27 13:43 | P.PN ---
Subjective Progress Note Date: 10/27/20 This is a 64-year-old male who was recently admitted with significant swelling noted to the left arm fistula and is being closely monitored. Patient is maintained on hemodialysis with a left arm fistula and nursing staff at the dialysis center were uncomfortable with accessing and sent here for further evaluation. Nephrology consulted along with vascular surgery and currently receiving hemodialysis today at the bedside. Patient continues to have significant left arm swelling and ordering CT of the left arm and report is pending. 10/27/2020 Patient is seen and evaluated in follow-up this morning currently receiving hemodialysis as he is maintained on Monday//Monday schedule and was admitted with overload and nephrology following closely. Vascular surgery also following as patient has continued left upper extremity swelling and CT noted to have a dilated dialysis catheter and surrounding edema in the subcutaneous area and dialysis catheter has been functioning and easily cannulated per dialysis nurse. Patient denies any left upper arm pain but is having some abdominal discomfort associated with nausea. States he did have a bowel movement today that was black and tarry and loose and have consulted GI. A hemoglobin was found to be 6.5 yesterday and was given 1 unit of PRBC and hemoglobin today is 8.2. Plans are for possible upper endoscopy tomorrow. Patient is maintained on IV Protonix twice daily and will continue at this time. Review of systems: Constitutional: reports of fatigue, no reports of fever, or chills Cardiovascular: No reports of chest pain or palpitations Respiratory: No reports of shortness of breath or cough GI: Reports nausea but no reports of vomiting and did have 1 loose bowel movement today that was black and tarry with continued abdominal discomfort noted : No reports of dysuria or retention Neurovascular: Reports generalized weakness All medications have been reviewed Active Medications Acetaminophen (Acetaminophen Tab 325 Mg Tab) 650 mg PO Q6HR PRN PRN Reason: Fever and/ or Pain Last Admin: 10/27/20 04:15 Dose: 650 mg Documented by: Amlodipine Besylate (Amlodipine 10 Mg Tab) 10 mg PO DAILY@0900 [facility] Last Admin: 10/27/20 08:44 Dose: Not Given Documented by: Aspirin (Aspirin 81 Mg) 81 mg PO DAILY@0900 [facility] Last Admin: 10/27/20 09:14 Dose: Not Given Documented by: Carvedilol (Carvedilol 12.5 Mg Tab) 25 mg PO BID@0900,1700 [facility] Last Admin: 10/27/20 08:44 Dose: Not Given Documented by: Clonidine (Clonidine Hcl 0.1 Mg Tab) 0.3 mg PO TID@0600,1400,2200 [facility] Last Admin: 10/27/20 05:42 Dose: Not Given Documented by: Darbepoetin Juanpablo (Darbepoetin Juanpablo 40 Mcg/0.4 Ml Syringe) 40 mcg SQ Q7D [facility] Last Admin: 10/25/20 12:11 Dose: 40 mcg Documented by: Doxazosin Mesylate (Doxazosin 2 Mg Tab) 2 mg PO BID@0900,1700 [facility] Last Admin: 10/27/20 08:45 Dose: Not Given Documented by: Azithromycin 500 mg/ Sodium (Chloride) 250 mls @ 250 mls/hr IVPB DAILY [facility] Stop: 10/28/20 09:59 Last Admin: 10/27/20 11:36 Dose: 250 mls/hr Documented by: Piperacillin Sod/Tazobactam (Sod 3.375 gm/ Sodium Chloride) 100 mls @ 25 mls/hr IVPB Q12H [facility] Last Admin: 10/27/20 00:04 Dose: 25 mls/hr Documented by: Lacosamide (Lacosamide 50 Mg Tablet) 50 mg PO TID@0900,1300,2100 [facility] Last Admin: 10/27/20 09:14 Dose: 50 mg Documented by: Loperamide HCl (Loperamide 2 Mg Cap) 2 mg PO QID PRN PRN Reason: Diarrhea Miscellaneous Information (Pneumonia Protocol Utilized 1 Each Misc) 1 each PO ONCE PRN PRN Reason: Per Protocol Multivit/Ca Carb/B Cmplx/FA/Prenat (Folic Acid-Vit B Complex-Vit C 1 Cap) 1 each PO DAILY@0900 [facility] Last Admin: 10/27/20 09:13 Dose: 1 each Documented by: Patient's Own ( Patiromer Calcium Sorbitex [Veltassa] 8.4 Gm Powd.Pack) 8.4 gm PO DAILY@0900 [facility] Last Admin: 10/27/20 08:45 Dose: Not Given Documented by: Non Formulary Drug- (Lanthanum 1,000mg) 1,000 each PO TID@0800,1200,1700 [facility] Last Admin: 10/27/20 08:45 Dose: Not Given Documented by: Ondansetron HCl (Ondansetron 4 Mg/2 Ml Vial) 4 mg IVP Q6HR PRN PRN Reason: Nausea And Vomiting Last Admin: 10/27/20 09:13 Dose: 4 mg Documented by: Pantoprazole Sodium (Pantoprazole 40 Mg/10 Ml Vial) 40 mg IVP BID [facility] Sevelamer Carbonate (Sevelamer 800 Mg Tab) 4,000 mg PO AC-TID [facility] Last Admin: 10/27/20 09:13 Dose: 4,000 mg Documented by: Objective - Vital Signs Vital signs: Vital Signs Temp 97.8 F 10/27/20 08:00 Pulse 99 10/27/20 08:00 Resp 18 10/27/20 08:00 BP 91/53 10/27/20 08:00 Pulse Ox 91 L 10/27/20 08:00 Intake & Output 10/26/20 10/27/20 10/27/20 18:59 06:59 18:59 Intake Total 850 580 Output Total 1999 Balance -1150 580 Intake: Intake, IV Titration 100 Amount Piperacillin-Tazobactam 3 100 .375 gm In Sodium Chloride 0.9% 100 ml @ 25 mls/hr IVPB Q12H [facility] Rx# :[id number] Oral 540 480 Blood Product 310 Rc As-1 Unit 310 [id number] Output: Hemodialysis 1999 Other: # Voids 0 0 # Bowel Movements 1 0 - Exam Gen: This is a 64-year-old male awake, alert and oriented 2-3, thin built. Temp is 97.8 F, pulse is 99, respirations are 18, blood pressure is 91/53, oxygen saturation is 91% on room air. HEENT: Head is atraumatic, normocephalic. Pupils equal, round. Sclerae is anicteric. NECK: Supple. No JVD. No lymphadenopathy. No thyromegaly. LUNGS: diminished breath sounds bilaterally with some scattered rhonchi noted. No intercostal retractions. HEART: S1, S2 muffled ABDOMEN: Soft. Tenderness of the left and right lower quadrants on palpation. Nondistended. Bowel sounds are present. No masses. EXTREMITIES: No pedal edema. No calf tenderness. left upper extremity swelling noted and dialysis fistula noted with a thrill and currently receiving hemodialysis NEUROLOGICAL: Patient is awake, alert and oriented x2-3. no focal deficits noted. Diffusely weak - Labs CBC & Chem 7: 10/27/20 05:30 10/27/20 05:30 Labs: Abnormal Lab Results - Last 24 Hours (Table) 10/26/20 10/26/20 10/26/20 Range/Units 04:49 04:49 04:49 RBC 2.10 L (4.40-5.60) X 10*6/uL Hgb 6.5 L* (13.0-17.0) g/dL Hct 21.5 L (39.6-50.0) % MCV 102.4 H (80.0-97.0) fL MCHC 30.2 L (32.0-37.0) g/dL RDW 16.2 H (11.5-14.5) % Plt Count 119 L (140-440) X 10*3/uL Plt Count Comment A Immature Gran # 0.11 H (0.00-0.04) X 10*3/uL Lymphocytes # 0.74 L (0.90-5.00) X 10*3/uL Chloride (98-107) mmol/L Carbon Dioxide (21.6-31.8) mmol/L Anion Gap (4.00-12.00) mmol/L BUN (9.0-27.0) mg/dL Creatinine (0.6-1.5) mg/dL Est GFR (CKD-EPI)AfAm (60.0-200.0) Est GFR (CKD-EPI)NonAf (60.0-200.0) BUN/Creatinine Ratio (12.00-20.00) Ratio Calcium (8.7-10.3) mg/dL C-Reactive Protein 6.8 H (0.0-0.8) mg/dL Procalcitonin 11.12 H (0.02-0.09) ng/mL Crossmatch 10/26/20 10/26/20 10/27/20 Range/Units 04:49 10:07 05:30 RBC 2.53 L (4.40-5.60) X 10*6/uL Hgb 8.2 L (13.0-17.0) g/dL Hct 25.3 L (39.6-50.0) % MCV 100.1 H (80.0-97.0) fL MCHC (32.0-37.0) g/dL RDW 16.3 H (11.5-14.5) % Plt Count 130 L D (140-440) X 10*3/uL Plt Count Comment Immature Gran # (0.00-0.04) X 10*3/uL Lymphocytes # 0.8 L (0.90-5.00) X 10*3/uL Chloride (98-107) mmol/L Carbon Dioxide 19.5 L (21.6-31.8) mmol/L Anion Gap 17.50 H (4.00-12.00) mmol/L BUN 103.0 H* (9.0-27.0) mg/dL Creatinine 9.3 H* (0.6-1.5) mg/dL Est GFR (CKD-EPI)AfAm 6.2 L (60.0-200.0) Est GFR (CKD-EPI)NonAf 5.4 L (60.0-200.0) BUN/Creatinine Ratio 11.08 L (12.00-20.00) Ratio Calcium 7.8 L (8.7-10.3) mg/dL C-Reactive Protein (0.0-0.8) mg/dL Procalcitonin (0.02-0.09) ng/mL Crossmatch See Detail 10/27/20 Range/Units 05:30 RBC (4.40-5.60) X 10*6/uL Hgb (13.0-17.0) g/dL Hct (39.6-50.0) % MCV (80.0-97.0) fL MCHC (32.0-37.0) g/dL RDW (11.5-14.5) % Plt Count (140-440) X 10*3/uL Plt Count Comment Immature Gran # (0.00-0.04) X 10*3/uL Lymphocytes # (0.90-5.00) X 10*3/uL Chloride 113 H (98-107) mmol/L Carbon Dioxide 21 L (21.6-31.8) mmol/L Anion Gap (4.00-12.00) mmol/L BUN 67 H (9.0-27.0) mg/dL Creatinine 6.50 H (0.6-1.5) mg/dL Est GFR (CKD-EPI)AfAm (60.0-200.0) Est GFR (CKD-EPI)NonAf (60.0-200.0) BUN/Creatinine Ratio (12.00-20.00) Ratio Calcium (8.7-10.3) mg/dL C-Reactive Protein (0.0-0.8) mg/dL Procalcitonin (0.02-0.09) ng/mL Crossmatch Microbiology - Last 24 Hours (Table) 10/24/20 19:43 Blood Culture - Preliminary Blood No Growth after 48 hours 10/24/20 19:43 Blood Culture - Preliminary Blood No Growth after 48 hours Assessment and Plan Assessment: Left arm fistula swelling and dilatation with inability to perform dialysis Possible acute GI bleed Acute blood loss anemia possibly secondary to GI bleed and possible anemia of chronic disease Possible right lower lobe pneumonia History of recent bilateral pneumonia of right more than left including the right upper lobe history of chronic kidney disease, end-stage renal disease Recent change in mental status acute metabolic encephalopathy secondary to uremia 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 Nephrology and vascular surgery following. Dialysis nurse here states the swelling of the left upper extremity is chronic for this patient. Patient will need outpatient follow up with vascular surgeon out of [place] if requiring revision of the fistula. Patient had left upper extremity CT showing dilated dialysis vessel and significant subcutaneous edema noted around the forearm and lesser of the upper arm. Hemodialysis nurse again easily cannulated the dialysis fistula of the left arm and hemodialysis done today. Patient having some nausea associated with abdominal discomfort and noted to have 1 bowel movement that was loose and black and tarry. Later in the afternoon it was reported by nursing staff that patient had bright red blood emesis noted shortly after lunch and Ateam was ca lled and patient is being followed by GI. Plans for upper EGD to assess bleeding in the morning. Stat CBC ordered and will transfuse if hemoglobin is 7 or less. Patient is status post 1 unit of PRBC yesterday with dialysis and hemoglobin was 8.2 this morning. Patient will be nothing by mouth and monitor for further bleeding and is maintained on IV Protonix twice daily. Patient continues on IV antibiotics with infectious disease following. Patient again refusing return to rehab once stabilized and discharged. PT/OT to evaluate the patient after hemodialysis. Given patient's severity of symptoms and active bleeding patient will be transferred to the ICU for close monitoring. Prognosis is guarded. Time with Patient: Greater than 30
--- NOTE | 2020-10-27 13:57 | P.EN ---
A- team: Indication: bloody emesis Arrived on Scene to find: nursing at bedside HR 105, BP 135/80 Patient seen and examined at bedside. Denies any lightheadedness, dizziness or palpitations. Reports some abdominal bloating and gas feeling just gotten better since vomiting. Vital signs reviewed General: ill appearing, no distress, appears at stated age Derm: bruising right arm, warm, dry Head: atraumatic, normocephalic, symmetric Eyes: EOMI, no lid lag, anicteric sclera Mouth: no lip lesion, mucus membranes moist Cardiovascular: S1S2 reg, with murmur, positive posterior tibial pulse bilateral, Lungs: CTA bilateral, no rhonchi, no rales , no accessory muscle use Abdominal: soft, + nontender to palpation, no guarding, no appreciable o rganomegaly Psych: Alert, oriented, appropriate affect Assessment: Upper GI bleed Anemia- acute on chronic - additional protonix 40 IVP X1 now - GI made aware - will need improved IV access - stat CBC , pt/ptt - transfused 1 unit pRBC 10/26 - consider DDAVP if continued bleeding. ESRD with hematoma near fistula - Nrphrology recs Plan: - transfer to ICU, Await CBC and pt/ptt Disposition: Transfer to ICU Notified: Dr. Brasher via phone call Dr. Amaya via perfect serve A Total of minutes of 33 critical care time was spent on the complex care of this patient.
[2020-10-27 14:03] LABS: Anisocytosis Slight; Basophils % (A) 0 %; Eosinophils # (A) 0.1 k/uL (0-0.7); Eosinophils % (A) 1 %; HCT 23.3 % (39.0-53.0); HGB 7.5 gm/dL (13.0-17.5); Hypochromasia Slight; Lymphocytes # (A) 0.5 k/uL (1.0-4.8); Lymphocytes % (A) 9 %; MCH 32.2 pg (25.0-35.0); MCHC 32.3 g/dL (31.0-37.0); MCV 99.5 fL (80.0-100.0); Macrocytosis Slight; Mean Platelet Volume 9.1; Monocytes # (A) 0.2 k/uL (0-1.0); Monocytes % (A) 5 %; Neutrophils # (A) 4.2 k/uL (1.3-7.7); Neutrophils % (A) 84 %; Platelet Count 116 k/uL (150-450); Poikilocytosis Slight; RBC 2.34 m/uL (4.30-5.90); RDW 16.3 % (11.5-15.5)
[2020-10-27 14:19] LABS: INR 1.2 (<1.2); Partial Thromboplastin Time 26.6 sec (22.0-30.0); Prothrombin Time 12.1 sec (9.0-12.0)
--- NOTE | 2020-10-27 14:45 | P.CNPUL ---
History of Present Illness Consult date: 10/27/20 Requesting physician: Shawn Amaya Reason for consult: other Chief complaint: Hematemesis, black tarry stools, anemia History of present illness: This is a 64-year-old white male patient with past medical history of end-stage renal disease on hemodialysis on Monday, and Monday schedule, hypertension, former smoker, chronic anemia on Aranesp, who presented to the emergency department on 10/24/2020 for evaluation of increased swelling of the left arm, which was present for a couple of weeks prior to hospitalization. Patient is a poor historian, he states that the dialysis fistula was placed several years ago. We saw the patient in consultation recently on 10/16/2020 when he was hospitalized with altered mental status, acute bilateral pneumonia with significant consolidation in the right upper lobe, with sepsis, uremia, and acute rhabdomyolysis after missing hemodialysis for a week. There was questionable papilledema involving the right optic nerve, with possibility of CVA at that time and patient was evaluated by both neurology and ophthalmology. Patient was treated with antibiotics, he was dialyzed, he clinically improved, and he was discharged to [facility] for continued PT and OT therapy on 10/22/2020 to complete an oral course of Augmentin [id number] mg twice daily for 7 more days. On 10/24/2020 patient was brought back to the hospital for reeva luation for the swelling of the left upper arm, denied any dyspnea or fevers, denied any cough, his admission chest x-ray showed a bilateral pneumonia that was improving compared his most recent chest x-ray prior to discharge from the hospital. There was a new small infiltrate in the right lung base compared the previous chest x-ray. Left upper extremity Doppler showed no evidence of DVT in the left arm. Patient was placed on a combination of azithromycin and Zosyn. He was receiving hemodialysis and had a hemodialysis session on 10/26/2020 with removal of 3 L of fluid, and again today on 10/27/2020. Today rapid response team was called to the bedside for concern of an episode of hematemesis, and an episode of dark tarry stools. Yesterday patient received a unit of packed red blood cells for a hemoglobin of 6.5, and this morning his hemoglobin was up to 8.2 and recheck in the afternoon came back at 7.5. Patient was transferred to the intensive care unit. Currently his blood pressure is 91/53, he is breathing comfortably, he denies any bony complaints, he is on room air with a pulse ox of 91-96%, he is awake and alert, oriented to self, and to place. He is afebrile, no complaints of chest discomfort. He was started on IV Protonix 40 mg twice daily, and GI service has been consulted and patient is nothing by mouth for possible EGD and colonoscopy tomorrow on 10/28/2020. Review of Systems All systems: negative Constitutional: Denies chills, Denies fever Eyes: denies blurred vision, denies pain Ears, nose, mouth and throat: Denies headache, Denies sore throat Cardiovascular: Denies chest pain, Denies shortness of breath Respiratory: Denies cough Gastrointestinal: Reports bloating, Reports hematemesis, Reports melena, Denies abdominal pain, Denies diarrhea, Denies nausea, Denies vomiting Musculoskeletal: Denies myalgias Integumentary: Denies pruritus, Denies rash Neurological: Denies numbness, Denies weakness Psychiatric: Denies anxiety, Denies depression Endocrine: Denies fatigue, Denies weight change Past Medical History Past Medical History: Hypertension Additional Past Medical History / Comment(s): DIALYSIS T,TH,SA; pt. is a poor historian. History of Any Multi-Drug Resistant Organisms: None Reported Additional Past Surgical History / Comment(s): FISTULA, rigth side kidney removal. Past Psychological History: No Psychological Hx Reported Smoking Status: Former smoker, Unknown if ever smoked Past Alcohol Use History: None Reported Past Drug Use History: None Reported - Past Family History Mother Family Medical History: Dementia, Hypertension Medications and Allergies Home Medications Medication Instructions Recorded Confirmed Type amLODIPine [Norvasc] 10 mg PO DAILY@0900 02/20/15 10/24/20 History Carvedilol [Coreg] 25 mg PO BID@0900,1700 10/15/20 10/24/20 History Doxazosin [Cardura] 2 mg PO BID@0900,1700 10/15/20 10/24/20 History Lanthanum Carbonate 1,000 mg PO TID@0800,1200,1700 10/15/20 10/24/20 History Patiromer Calcium Sorbitex 8.4 gm PO DAILY@0900 10/15/20 10/24/20 History [Veltassa] cloNIDine HCL [Catapres] 0.3 mg PO TID@0600,1400,2200 10/15/20 10/24/20 History Loperamide [Imodium] 2 mg PO QID PRN cap 10/22/20 10/24/20 Rx Amoxicillin/Potassium Clav 1 tab PO BID@0900,2100 10/24/20 10/24/20 History [Augmentin 500-125 Tablet] Aspirin 81 mg PO DAILY@0900 10/24/20 10/24/20 History Lacosamide [Vimpat] 50 mg PO TID@0900,1300,2100 10/24/20 10/24/20 History Omeprazole 20 mg PO DAILY@0600 10/24/20 10/24/20 History Prostat Sugar Free Liquid Protein 1 can PO BID@0900,1700 10/24/20 10/24/20 History Saba-Dwight (M-Telfmnb-S-Folic-Acid) 1 tab PO DAILY@0900 10/24/20 10/24/20 History Sevelamer [Renvela] 4,000 mg PO TID@0700,1100,1800 10/24/20 10/24/20 History Allergies Allergy/AdvReac Type Severity Reaction Status Date / Time Sulfa (Sulfonamide Allergy Rash/Hives Verified 10/24/20 20:43 Antibiotics) Physical Exam Vitals: Vital Signs Temp Pulse Resp BP Pulse Ox 10/27/20 13:27 98.7 F 99 139/72 10/27/20 08:00 97.8 F 99 18 91/53 91 L 10/27/20 02:55 98.9 F 77 18 144/75 96 10/26/20 22:30 96 10/26/20 20:00 98.2 F 75 17 134/65 98 10/26/20 14:49 68 18 109/64 Intake and Output 10/26/20 10/27/20 10/27/20 22:59 06:59 14:59 Intake Total 540 580 Output Total 700 Balance 540 580 -700 Intake: Intake, IV Titration 100 Amount Piperacillin-Tazobactam 3 100 .375 gm In Sodium Chloride 0.9% 100 ml @ 25 mls/hr IVPB Q12H [facility] Rx# :[id number] Oral 540 480 Output: Emesis 700 Other: # Voids 0 0 # Bowel Movements 1 0 GENERAL EXAM: Alert, very pleasant, 64-year-old white male, resting comfortably in bed, on room air, breathing comfortably, with a pulse ox of 91-97%, comfortable in no apparent distress. HEAD: Normocephalic/atraumatic. EYES: Normal reaction of pupils, equal size. Conjunctiva pink, sclera white. NOSE: Clear with pink turbinates. THROAT: No erythema or exudates. NECK: No masses, no JVD, no thyroid enlargement, no adenopathy. CHEST: No chest wall deformity. Symmetrical expansion. LUNGS: Equal air entry with no crackles, wheeze, rhonchi or dullness. CVS: Regular rate and rhythm, normal S1 and S2, no gallops, no murmurs, no rubs ABDOMEN: Soft, nontender. No hepatosplenomegaly, normal bowel sounds, no guarding or rigidity. EXTREMITIES: No clubbing, no edema, no cyanosis, 2+ pulses and upper and lower extremities. Left upper arm fistula present, and there is significant swelling involving the left upper arm MUSCULOSKELETAL: Muscle strength and tone normal. SPINE: No scoliosis or deformity SKIN: No rashes CENTRAL NERVOUS SYSTEM: Alert and oriented -3. No focal deficits, tone is normal in all 4 extremities. PSYCHIATRIC: Alert and oriented -3. Appropriate affect. Intact judgment and insight. Results - Laboratory Findings CBC and BMP: 10/27/20 13:51 10/27/20 05:30 PT/INR, D-dimer PT 11.5 sec (9.0-12.0) 10/24/20 17:29 INR 1.1 (<1.2) 10/24/20 17:29 Abnormal lab findings: Abnormal Labs 10/24/20 10/24/20 10/24/20 17:29 17:29 17:29 RBC 2.71 L Hgb 8.6 L Hct 26.8 L MCV MCHC RDW 16.8 H Plt Count 83 L Plt Count Comment Immature Gran # Lymphocytes # 0.6 L APTT 19.1 L Sodium 136 L Chloride Carbon Dioxide Anion Gap BUN 85 H Creatinine 6.97 H Est GFR (CKD-EPI)AfAm Est GFR (CKD-EPI)NonAf BUN/Creatinine Ratio Calcium AST 76 H ALT 61 H C-Reactive Protein Total Protein 5.2 L Albumin 2.6 L Procalcitonin Crossmatch 10/25/20 10/26/20 10/26/20 10:25 04:49 04:49 RBC 2.10 L Hgb 6.5 L* Hct 21.5 L MCV 102.4 H MCHC 30.2 L RDW 16.2 H Plt Count 119 L Plt Count Comment A Immature Gran # 0.11 H Lymphocytes # 0.74 L APTT Sodium Chloride 110 H Carbon Dioxide 19 L Anion Gap BUN 96 H Creatinine 8.15 H* Est GFR (CKD-EPI)AfAm Est GFR (CKD-EPI)NonAf BUN/Creatinine Ratio Calcium AST ALT C-Reactive Protein Total Protein 4.2 L Albumin 2.0 L Procalcitonin 11.12 H Crossmatch 10/26/20 10/26/20 10/26/20 04:49 04:49 10:07 RBC Hgb Hct MCV MCHC RDW Plt Count Plt Count Comment Immature Gran # Lymphocytes # APTT Sodium Chloride Carbon Dioxide 19.5 L Anion Gap 17.50 H BUN 103.0 H* Creatinine 9.3 H* Est GFR (CKD-EPI)AfAm 6.2 L Est GFR (CKD-EPI)NonAf 5.4 L BUN/Creatinine Ratio 11.08 L Calcium 7.8 L AST ALT C-Reactive Protein 6.8 H Total Protein Albumin Procalcitonin Crossmatch See Detail 10/27/20 10/27/20 10/27/20 05:30 05:30 13:51 RBC 2.53 L 2.34 L Hgb 8.2 L 7.5 L Hct 25.3 L 23.3 L MCV 100.1 H MCHC RDW 16.3 H 16.3 H Plt Count 130 L D 116 L Plt Count Comment Immature Gran # Lymphocytes # 0.8 L 0.5 L APTT Sodium Chloride 113 H Carbon Dioxide 21 L Anion Gap BUN 67 H Creatinine 6.50 H Est GFR (CKD-EPI)AfAm Est GFR (CKD-EPI)NonAf BUN/Creatinine Ratio Calcium AST ALT C-Reactive Protein Total Protein Albumin Procalcitonin Crossmatch - Diagnostic Findings Chest x-ray: report reviewed, image reviewed Additional studies: Computed tomography scan of the left upper extremity without contrast showing dilated dialysis vessel in the left upper arm, extensive subcutaneous edema a round the forearm and to lesser degree in the upper arm. Venous Doppler of the left upper arm Assessment and Plan Plan: Assessment: #1. Acute GI bleeding, acute on chronic GI blood loss anemia. Patient had an episode of hematemesis and dark tarry stools, patient required 1 unit of packed red blood cells for a hemoglobin of 6.8 #2. Left upper arm swelling, at the site of hemodialysis AV fistula, Doppler ultrasound showed no evidence of DVT, and CT scan of the left arm showed extensive subcutaneous emphysema #3. Recent hospitalization for acute metabolic encephalopathy, bilateral pneumonia possibly related to aspiration, sepsis, possible papilledema #4. End-stage renal disease on hemodialysis on Monday schedule #5. Hypertension #6. Former smoker #7. Papilledema involving the right optic nerve during most recent admission. CT of the head and CTA head and neck were unremarkable, MRI of the brain with no evidence of recent infarct #8. General medical debility Plan: We'll give the patient IV fluids 500 mL of 0.9 normal saline Follow serial H&H's every 6 hours Continue Protonix 40 mg twice daily GI service is following and is planning on EGD tomorrow Keep patient nothing by mouth Continue current antibiotics Most recent chest x-ray reviewed No significant pulmonary symptoms, patient is on room air We'll continue close monitoring in the ICU Right groin central line venous catheter was placed in the right femoral vein Continue to follow I performed a history & physical examination of the patient and discussed their management with my nurse practitioner, Acacia Guzman. I reviewed the nurse practitioner's note and agree with the documented findings and plan of care. Lung sounds are positive for diminished breath sounds throughout the lung hurtado. The findings and the impression was discussed with the patient. I attest to the documentation by the nurse practitioner. Time with Patient: Greater than 30
--- NOTE | 2020-10-27 14:57 | P.PCN ---
Date of Procedure: 10/27/20 Preoperative Diagnosis: GI bleeding Postoperative Diagnosis: GI bleeding Procedure(s) Performed: Insertion of a central line Anesthesia: local Surgeon: Jaxson Brasher Estimated Blood Loss (ml): 0 Pathology: none sent Condition: critical Disposition: ICU Operative Findings: Indication: Hemodynamic monitoring/Intravenous access. A time-out was completed verifying correct patient, procedure, site, positioning, and implant(s) or special equipment if applicable. The patient was placed in a dependent position appropriate for central line placement based on the vein to be cannulated. The patients right groin was prepped and draped in sterile fashion. 1% Lidocaine was used to anesthetize the surrounding skin area. A triple lumen 9F Cordis catheter was introduced into the right common femoral vein using Seldinger technique. The catheter was threaded smoothly over the guide wire and appropriate blood return was obtained. Each lumen of the catheter was evacuated of air and flushed with sterile saline. The catheter was then sutured in place to the skin and a sterile dressing applied. Perfusion to the extremity distal to the point of catheter insertion was checked and found to be adequate. The patient tolerated the procedure well and there were no complications.
[2020-10-27 16:18] LABS: % Iron Saturation 40.84 (15.00-50.00)
--- NOTE | 2020-10-27 18:22 | PN ---
PROGRESS NOTE DATE OF SERVICE: 10/27/2020 REASON FOR FOLLOWUP: Pneumonia. INTERVAL HISTORY: The patient did have an episode of emesis for which the patient has been transferred to the ICU. GI has been on the case. The patient is currently hemodynamically stable. No fever. No chest pain or any worsening cough. No abdominal pain or diarrhea. PHYSICAL EXAMINATION: Blood pressure 129/70 with a pulse of 100, temperature 97.5. He is 93% on 5 L nasal cannula. General description is a middle-aged male lying in bed in no distress. Respiratory system: Unlabored breathing, decreased breath sounds in the base, with no wheeze. Heart S1, S2. Regular rate and rhythm. Abdomen soft, no tenderness. LABS: Hemoglobin 7.5, white count 5.0. Blood culture negative so far. DIAGNOSTIC IMPRESSION AND PLAN: Patient admitted to the hospital with swelling to the left arm AV fistula site and respiratory ( ), component of pneumonia, possible aspiration etiology, now with evidence of bloody emesis. GI is on the case. Patient is covered with Zosyn, will be continued while monitoring his clinical course closely. Continue supportive care. MMODL / IJN: [id number] /
[2020-10-27] MEDS: METOCLOPRAMIDE 5 MG/ML 2 ML VIAL IVP SCH (21:03)
[2020-10-27] MEDS: MORPHINE SULFATE 2 MG/ML SYRINGE IVP PRN (21:04)
[2020-10-27 21:32] LABS: Anisocytosis Slight; Basophils % (A) 0 %; Eosinophils # (A) 0.1 k/uL (0-0.7); Eosinophils % (A) 1 %; HCT 22.2 % (39.0-53.0); Hypochromasia Moderate; Lymphocytes # (A) 0.5 k/uL (1.0-4.8); Lymphocytes % (A) 11 %; MCH 30.8 pg (25.0-35.0); MCHC 30.5 g/dL (31.0-37.0); MCV 101.1 fL (80.0-100.0); Macrocytosis Slight; Mean Platelet Volume 9.5; Monocytes # (A) 0.3 k/uL (0-1.0); Monocytes % (A) 6 %; Neutrophils % (A) 80 %; Platelet Count 101 k/uL (150-450); Poikilocytosis Slight; RBC 2.19 m/uL (4.30-5.90); RDW 16.7 % (11.5-15.5)
[2020-10-27] MEDS: PANTOPRAZOLE 40 MG/10 ML VIAL IVP SCH (21:43)
[2020-10-27 21:56] LABS: HGB 6.8 gm/dL (13.0-17.5)
[2020-10-28] MEDS: PIPERACILLIN-TAZOBACTAM 3.375 GM in SODIUM CHLORIDE 0.9% 100 ML IVPB SCH ×2 (00:08→22:26)
[2020-10-28] MEDS: MORPHINE SULFATE 2 MG/ML SYRINGE IVP PRN ×2 (01:27→05:43)
[2020-10-28] MEDS: ONDANSETRON 4 MG/2 ML VIAL IVP PRN (01:27)
[2020-10-28] MEDS: METOCLOPRAMIDE 5 MG/ML 2 ML VIAL IVP SCH ×4 (03:56→22:24)
[2020-10-28 05:31] LABS: Anisocytosis Slight; Basophils % (A) 0 %; Eosinophils # (A) 0.1 k/uL (0-0.7); Eosinophils % (A) 1 %; HCT 24.4 % (39.0-53.0); HGB 8.1 gm/dL (13.0-17.5); Hypochromasia Slight; Lymphocytes # (A) 0.5 k/uL (1.0-4.8); Lymphocytes % (A) 8 %; MCH 32.6 pg (25.0-35.0); MCHC 33.3 g/dL (31.0-37.0); MCV 97.8 fL (80.0-100.0); Macrocytosis Slight; Mean Platelet Volume 9.1; Monocytes # (A) 0.3 k/uL (0-1.0); Monocytes % (A) 5 %; Neutrophils # (A) 5.4 k/uL (1.3-7.7); Neutrophils % (A) 85 %; Platelet Count 116 k/uL (150-450); Poikilocytosis Slight; RDW 16.1 % (11.5-15.5); WBC 6.3 k/uL (3.8-10.6)
[2020-10-28] MEDS: cloNIDine HCL 0.1 MG TAB PO SCH ×3 (05:43→22:26)
[2020-10-28 05:45] LABS: Magnesium 2.3 mg/dL (1.6-2.3); Phosphorus 6.1 mg/dL (2.5-4.5)
[2020-10-28] MEDS: SEVELAMER 800 MG TAB PO SCH ×3 (06:44→15:25)
--- NOTE | 2020-10-28 06:53 | XR ---
EXAMINATION TYPE: XR chest 1V DATE OF EXAM: 10/28/2020 HISTORY: Shortness of breath. COMPARISON: 10/25/2020 TECHNIQUE: Single view of the chest is submitted. FINDINGS: Demonstrated are scattered senescent parenchymal change. Persistent increased density right upper lobe medially. Increased density left lower lobe unchanged. Small left-sided pleural effusion. Overall stable examination of the chest. The heart is stable. Hilar and mediastinal structures are within normal limits. Degenerative changes are seen of the dorsal spine. IMPRESSION: 1. Stable chest
[2020-10-28] MEDS: LANTHANUM 1000 MG PO SCH ×3 (08:24→15:25)
[2020-10-28] MEDS: PATIROMER CALCIUM SORBITEX PO SCH (08:25)
[2020-10-28] MEDS: PANTOPRAZOLE 40 MG/10 ML VIAL IVP SCH ×2 (08:31→22:25)
[2020-10-28] MEDS ORDERED: IV FLUID CONTINUATION 1,000 ML IV ONE (09:13)
[2020-10-28] MEDS ORDERED: PROPOFOL 10 MG/ML 20 ML VIAL IV ONE (09:18)
[2020-10-28] MEDS ORDERED: SODIUM CHLORIDE 0.9% 500 ML 500 ML IV ONE (09:43)
--- NOTE | 2020-10-28 09:51 | P.PCN ---
Date of Procedure: 10/28/20 Procedure(s) Performed: BRIEF HISTORY: Patient is a 64-year-old, pleasant, white male admitted hospital with acute upper GI bleed. He has history of end-stage renal disease on hemodialysis and has been having black tarry stools for 2 days. At the time of admission to hospital hemoglobin of 6.4 and descending appeared to 6 exacerbation. Yesterday evening he had an episode of hematemesis followed by several episodes of coffee-ground emesis. This morning hemoglobin dropped to 6.8 g/dL and received another unit of PRBC transfusion. He scheduled for an upper endoscopy to evaluate further. PROCEDURE PERFORMED: Esophagogastroduodenoscopy. PREOPERATIVE DIAGNOSIS: Acute upper GI bleed. IV sedation per anesthesia. PROCEDURE: After informed consent was obtained, the patient was brought into the endoscopy unit. IV sedation was administered by Anesthesia under continuous monitoring. Initially the Olympus GIF-140 video endoscope was inserted into the mouth. Esophagus intubated without any difficulty. It was gradually advanced into the stomach there was at least 500-600 mL of coffee ground material that was aspirated. There was a large adherent clot noted in the antrum of the stomach occluding the entire lumen and despite multiple and as I was not able to advance the scope beyond the clot into the duodenum. I tried to wash the clot off but was not successful. The body the stomach appeared normal and retroflexion the cardia and the fundus appeared normal. The scope at this time was withdrawn to the stomach, adequately insufflated with air, and upon careful examination, mucosa of the antrum, body, cardia and the fundus appeared normal. The scope was then withdrawn into the esophagus. The GE junction was located at 39 cm from the incisors. The esophagus appeared normal. There were no erosions or ulcerations seen and the patient tolerated the procedure well. IMPRESSION: 1. Large adherent clot in the antrum of the stomach occluding the entire lumen and the scope could not be advanced into the duodenum.. 2. Small hiatal hernia. RECOMMENDATIONS: The findings of this examination were discussed with the patient. Discuss with Dr. Amaya and surgical consultation was obtained with and the case was discussed with him. In the meantime results with him in 2 more units of PRBC transfusion continue IV Protonix and monitor CBC every 6 hours..
[2020-10-28] MEDS ORDERED: SODIUM CHLORIDE 0.9% 500 ML 1,000 ML IV ONE (10:02)
--- NOTE | 2020-10-28 10:10 | P.PN ---
Subjective Progress Note Date: 10/28/20 Principal diagnosis: Acute GI bleed This is a 64-year-old white male patient with past medical history of end-stage renal disease on hemodialysis on Monday, and Monday schedule, hypertension, former smoker, chronic anemia on Aranesp, who presented to the emergency department on 10/24/2020 for evaluation of increased swelling of the left arm, which was present for a couple of weeks prior to hospitalization. Patient is a poor historian, he states that the dialysis fistula was placed several years ago. We saw the patient in consultation recently on 10/16/2020 wh en he was hospitalized with altered mental status, acute bilateral pneumonia with significant consolidation in the right upper lobe, with sepsis, uremia, and acute rhabdomyolysis after missing hemodialysis for a week. There was questionable papilledema involving the right optic nerve, with possibility of CVA at that time and patient was evaluated by both neurology and ophthalmology. Patient was treated with antibiotics, he was dialyzed, he clinically improved, and he was discharged to [facility] for continued PT and OT therapy on 10/22/2020 to complete an oral course of Augmentin [id number] mg twice daily for 7 more days. On 10/24/2020 patient was brought back to the hospital for reevaluation for the swelling of the left upper arm, denied any dyspnea or fevers, denied any cough, his admission chest x-ray showed a bilateral pneumonia that was improving compared his most recent chest x-ray prior to discharge from the hospital. There was a new small infiltrate in the right lung base compared the previous chest x-ray. Left upper extremity Doppler showed no evidence of DVT in the left arm. Patient was placed on a combination of azithromycin and Zosyn. He was receiving hemodialysis and had a hemodialysis session on 10/26/2020 with removal of 3 L of fluid, and again today on 10/27/2020. Today rapid response team was called to the bedside for concern of an episode of hematemesis, and an episode of dark tarry stools. Yesterday patient received a unit of packed red blood cells for a hemoglobin of 6.5, and this morning his hemoglobin was up to 8.2 and recheck in the afternoon came back at 7.5. Patient was transferred to the intensive care unit. Currently his blood pressure is 91/53, he is breathing comfortably, he denies any bony complaints, he is on room air with a pulse ox of 91-96%, he is awake and alert, oriented to self, and to place. He is afebrile, no complaints of chest discomfort. He was started on IV Protonix 40 mg twice daily, and GI service has been consulted and patient is nothing by mouth for possible EGD and colonoscopy tomorrow on 10/28/2020. On 10/28/2020 patient is seen in follow-up in intensive care unit, he is still having episodes of hematemesis, he has had 3 episodes overnight, last one this morning at 7 AM dark bloody emesis approximately 500 mL in the emesis basin. Abdomen is soft. And has remained nothing by mouth tonight, EGD is planned for this morning, last night he received additional unit of blood for hemoglobin of 6.8, this morning's hemoglobin is 8.1, white count is 6.3, his had no fever or chills, he has had no difficulty breathing, no cough, no chest pain. Sinus mechanism, tachycardic with a rate of 108 BPM, room air pulse ox is 95%, a bit hypertensive this morning, with a blood pressure in the 160s to 180 systolic, and 80s to 90s diastolic. His chest x-ray today shows a stable chest, with the right upper lobe density, and left lower lobe density unchanged. Clinically patient is not complaining of any pulmonary complaints. His blood cultures has remained negative. His electrolytes are unremarkable today, his BUN is 50, and creatinine is 5.56. Objective - Vital Signs Vital signs: Vital Signs Temp 97.6 F 10/28/20 04:00 Pulse 108 H 10/28/20 09:00 Resp 12 10/28/20 09:00 BP 182/91 10/28/20 09:00 Pulse Ox 94 L 10/28/20 09:00 Intake & Output 10/27/20 10/28/20 10/28/20 18:59 06:59 18:59 Intake Total 620 440 320 Output Total 700 1400 600 Balance -80 -960 -280 Weight 67 kg Intake: IV 620 130 320 0.9 NS 520 130 20 Piperacillin-Tazobactam 3 100 .375 gm In Sodium Chloride 0.9% 100 ml @ 25 mls/hr IVPB Q12H [facility] Rx# :[id number] Blood Product 310 Rc As-1 Unit 310 [id number] Output: Urine 0 0 Emesis 700 1400 600 - Exam GENERAL EXAM: Alert, very pleasant, 64-year-old white male, resting comfortably in bed, on room air, breathing comfortably, with a pulse ox of 91-97%, comfortable in no apparent distress. HEAD: Normocephalic/atraumatic. EYES: Normal reaction of pupils, equal size. Conjunctiva pink, sclera white. NOSE: Clear with pink turbinates. THROAT: No erythema or exudates. NECK: No masses, no JVD, no thyroid enlargement, no adenopathy. CHEST: No chest wall deformity. Symmetrical expansion. LUNGS: Equal air entry with no crackles, wheeze, rhonchi or dullness. CVS: Regular rate and rhythm, normal S1 and S2, no gallops, no murmurs, no rubs ABDOMEN: Soft, nontender. No hepatosplenomegaly, normal bowel sounds, no guarding or rigidity. EXTREMITIES: No clubbing, no edema, no cyanosis, 2+ pulses and upper and lower extremities. Left upper arm fistula present, and there is significant swelling involving the left upper arm MUSCULOSKELETAL: Muscle strength and tone normal. SPINE: No scoliosis or deformity SKIN: No rashes CENTRAL NERVOUS SYSTEM: Alert and oriented -3. No focal deficits, tone is normal in all 4 extremities. PSYCHIATRIC: Alert and oriented -3. Appropriate affect. Intact judgment and insight. - Labs CBC & Chem 7: 10/28/20 05:10 10/28/20 05:00 Labs: Abnormal Lab Results - Last 24 Hours (Table) 10/26/20 10/27/20 10/27/20 Range/Units 10:07 05:30 13:51 RBC 2.34 L (4.30-5.90) m/uL Hgb 7.5 L (13.0-17.5) gm/dL Hct 23.3 L (39.0-53.0) % MCV (80.0-100.0) fL MCHC (31.0-37.0) g/dL RDW 16.3 H (11.5-15.5) % Plt Count 116 L (150-450) k/uL Lymphocytes # 0.5 L (1.0-4.8) k/uL PT (9.0-12.0) sec INR (<1.2) BUN (9-20) mg/dL Creatinine (0.66-1.25) mg/dL Phosphorus (2.5-4.5) mg/dL TIBC 191 L (228-460) ug/dL Crossmatch See Detail 10/27/20 10/27/20 10/28/20 Range/Units 13:52 21:15 05:00 RBC 2.19 L (4.30-5.90) m/uL Hgb 6.8 L* (13.0-17.5) gm/dL Hct 22.2 L (39.0-53.0) % MCV 101.1 H (80.0-100.0) fL MCHC 30.5 L (31.0-37.0) g/dL RDW 16.7 H (11.5-15.5) % Plt Count 101 L (150-450) k/uL Lymphocytes # 0.5 L (1.0-4.8) k/uL PT 12.1 H (9.0-12.0) sec INR 1.2 H (<1.2) BUN 50 H (9-20) mg/dL Creatinine 5.56 H (0.66-1.25) mg/dL Phosphorus 6.1 H (2.5-4.5) mg/dL TIBC (228-460) ug/dL Crossmatch 10/28/20 Range/Units 05:10 RBC 2.50 L (4.30-5.90) m/uL Hgb 8.1 L (13.0-17.5) gm/dL Hct 24.4 L (39.0-53.0) % MCV (80.0-100.0) fL MCHC (31.0-37.0) g/dL RDW 16.1 H (11.5-15.5) % Plt Count 116 L (150-450) k/uL Lymphocytes # 0.5 L (1.0-4.8) k/uL PT (9.0-12.0) sec INR (<1.2) BUN (9-20) mg/dL Creatinine (0.66-1.25) mg/dL Phosphorus (2.5-4.5) mg/dL TIBC (228-460) ug/dL Crossmatch Microbiology - Last 24 Hours (Table) 10/24/20 19:43 Blood Culture - Preliminary Blood No Growth after 72 hours 10/24/20 19:43 Blood Culture - Preliminary Blood No Growth after 72 hours Assessment and Plan Plan: Assessment: #1. Acute GI bleeding, acute on chronic GI blood loss anemia. Patient had an episode of hematemesis and dark tarry stools, patient has received 2 units of packed red blood cells thus far, this morning his hemoglobin is 8.1. #2. A large gastric ulcer with large adherent clot in the antrum of the stomach, occluding the entire lumen, seen on the EGD today on 10/28/2020, surgical consultation has been placed in pending at this time. Small hiatal hernia #3. Left upper arm swelling, at the site of hemodialysis AV fistula, Doppler ultrasound showed no evidence of DVT, and CT scan of the left arm showed extensive subcutaneous emphysema #4. Recent hospitalization for acute metabolic encephalopathy, bilateral pneumonia possibly related to aspiration, sepsis, possible papilledema #5. End-stage renal disease on hemodialysis on Monday schedule #6. Hypertension #7. Former smoker #8. Papilledema involving the right optic nerve during most recent admission. CT of the head and CTA head and neck were unremarkable, MRI of the brain with no evidence of recent infarct #9. General medical debility Plan: We'll give the patient 500 mL IV 0.9 normal saline bolus Transfuse with 2 units of packed red blood cells Gen. surgery has been consulted for possibility of surgery, EGD has been completed and there was a large gastric ulcer with a large clot in the antrum of the stomach Hemodynamic patient has remained stable Today's labs have been reviewed Continue close hemodynamic monitoring No pulmonary symptoms, no fever or chills Today's chest x-ray has been reviewed showing stable findings, overall improved since last week We can stop the antibiotics at this time Continue serial H&H's Continue monitoring for active bleeding Surgical consultation has been obtained Continue close monitoring in the ICU I performed a history & physical examination of the patient and discussed their management with my nurse practitioner, Acacia Guzman. I reviewed the nurse practitioner's note and agree with the documented findings and plan of care. Lung sounds are positive for diminished breath sounds throughout the lung hurtado. The findings and the impression was discussed with the patient. I attest to the documentation by the nurse practitioner. Time with Patient: Greater than 30
[2020-10-28] MEDS: amLODIPine 10 MG TAB PO SCH (10:31)
[2020-10-28] MEDS: FOLIC ACID-VIT B COMPLEX-VIT C 1 CAP PO SCH (10:31)
[2020-10-28] MEDS: DOXAZOSIN 2 MG TAB PO SCH ×2 (10:31→15:25)
[2020-10-28] MEDS: LACOSAMIDE 50 MG TABLET PO SCH ×2 (10:31→11:38)
[2020-10-28] MEDS: carvediloL 12.5 MG TAB PO SCH ×2 (10:31→15:25)
[2020-10-28] MEDS ORDERED: SODIUM CHLORIDE 0.9% 1,000 ML IV ONE (10:53)
[2020-10-28 11:15] LABS: Anisocytosis Slight; HCT 25.2 % (39.0-53.0); HGB 8.1 gm/dL (13.0-17.5); Hypochromasia Moderate; MCH 31.8 pg (25.0-35.0); MCHC 32.1 g/dL (31.0-37.0); Macrocytosis Slight; Mean Platelet Volume 9.2; Platelet Count 118 k/uL (150-450); Poikilocytosis Slight; RBC 2.55 m/uL (4.30-5.90); WBC 7.4 k/uL (3.8-10.6)
[2020-10-28] MEDS: CLEVIDIPINE BUTYRATE 25 MG in EMPTY BAG 1 BAG IV SCH ×2 (11:48→22:24)
--- NOTE | 2020-10-28 12:44 | XR ---
EXAMINATION TYPE: XR KUB portable DATE OF EXAM: 10/28/2020 COMPARISON: NONE HISTORY: Pain TECHNIQUE: Single supine KUB image of the abdomen is obtained FINDINGS: NG tube is noted within the stomach. Vascular calcifications are seen. Right femoral line identified. Small bowel demonstrates no evidence for dilatation or air fluid levels. Gas and fecal material is seen in non-distended colon. The lung bases are cut off the film limiting evaluation for pneumoperitoneum. No unusual calcifications. The lung bases are clear. The osseous structures are intact. IMPRESSION: 1. Overall nonobstructive bowel gas pattern.
[2020-10-28] MEDS: PHYTONADIONE 5 MG in SODIUM CHLORIDE 0.9% 50 ML IVPB SCH (12:47)
--- NOTE | 2020-10-28 13:09 | P.GSCN ---
History of Present Illness Consult date: 10/28/20 Reason for Consult: Bleeding duodenal ulcer History of present illness: This is a 64-year-old male who underwent endoscopy by Dr. Mcdaniel this morning patient has a large clots the duodenum. Dr. Mcdaniel was unable see the ulcer. I've asked see him regarding possible ulcer repair. Patient has received 2 units of packed red cells currently. . Past Medical History Past Medical History: Hypertension Additional Past Medical History / Comment(s): DIALYSIS T,TH,SA; pt. is a poor h istorian. History of Any Multi-Drug Resistant Organisms: None Reported Additional Past Surgical History / Comment(s): FISTULA, rigth side kidney remov al. Past Psychological History: No Psychological Hx Reported Smoking Status: Former smoker, Unknown if ever smoked Past Alcohol Use History: None Reported Past Drug Use History: None Reported - Past Family History Mother Family Medical History: Dementia, Hypertension Medications and Allergies Home Medications Medication Instructions Recorded Confirmed Type amLODIPine [Norvasc] 10 mg PO DAILY@0900 02/20/15 10/24/20 History Carvedilol [Coreg] 25 mg PO BID@0900,1700 10/15/20 10/24/20 History Doxazosin [Cardura] 2 mg PO BID@0900,1700 10/15/20 10/24/20 History Lanthanum Carbonate 1,000 mg PO TID@0800,1200,1700 10/15/20 10/24/20 History Patiromer Calcium Sorbitex 8.4 gm PO DAILY@0900 10/15/20 10/24/20 History [Veltassa] cloNIDine HCL [Catapres] 0.3 mg PO TID@0600,1400,2200 10/15/20 10/24/20 History Loperamide [Imodium] 2 mg PO QID PRN cap 10/22/20 10/24/20 Rx Amoxicillin/Potassium Clav 1 tab PO BID@0900,2100 10/24/20 10/24/20 History [Augmentin 500-125 Tablet] Aspirin 81 mg PO DAILY@0900 10/24/20 10/24/20 History Lacosamide [Vimpat] 50 mg PO TID@0900,1300,2100 10/24/20 10/24/20 History Omeprazole 20 mg PO DAILY@0600 10/24/20 10/24/20 History Prostat Sugar Free Liquid Protein 1 can PO BID@0900,1700 10/24/20 10/24/20 History Saba-Dwight (U-Teoiumx-X-Folic-Acid) 1 tab PO DAILY@0900 10/24/20 10/24/20 History Sevelamer [Renvela] 4,000 mg PO TID@0700,1100,1800 10/24/20 10/24/20 History Allergies Allergy/AdvReac Type Severity Reaction Status Date / Time Sulfa (Sulfonamide Allergy Rash/Hives Verified 10/24/20 20:43 Antibiotics) Surgical - Exam Vital Signs Temp Pulse Resp BP Pulse Ox 98 F 78 18 147/83 97 10/24/20 15:05 10/24/20 15:05 10/24/20 15:05 10/24/20 15:05 10/24/20 15:05 - General well developed, no distress - Eyes PERRL - ENT normal pinna - Neck no masses - Respiratory normal expansion - Cardiovascular Rhythm: regular - Abdomen Abdomen: soft, non tender Results - Labs 10/28/20 10:54 10/28/20 05:00 Abnormal Lab Results - Last 24 Hours (Table) 10/26/20 10/27/20 10/27/20 Range/Units 10:07 05:30 13:51 RBC 2.34 L (4.30-5.90) m/uL Hgb 7.5 L (13.0-17.5) gm/dL Hct 23.3 L (39.0-53.0) % MCV (80.0-100.0) fL MCHC (31.0-37.0) g/dL RDW 16.3 H (11.5-15.5) % Plt Count 116 L (150-450) k/uL Lymphocytes # 0.5 L (1.0-4.8) k/uL PT (9.0-12.0) sec INR (<1.2) BUN (9-20) mg/dL Creatinine (0.66-1.25) mg/dL Phosphorus (2.5-4.5) mg/dL TIBC 191 L (228-460) ug/dL Crossmatch See Detail 10/27/20 10/27/20 10/28/20 Range/Units 13:52 21:15 05:00 RBC 2.19 L (4.30-5.90) m/uL Hgb 6.8 L* (13.0-17.5) gm/dL Hct 22.2 L (39.0-53.0) % MCV 101.1 H (80.0-100.0) fL MCHC 30.5 L (31.0-37.0) g/dL RDW 16.7 H (11.5-15.5) % Plt Count 101 L (150-450) k/uL Lymphocytes # 0.5 L (1.0-4.8) k/uL PT 12.1 H (9.0-12.0) sec INR 1.2 H (<1.2) BUN 50 H (9-20) mg/dL Creatinine 5.56 H (0.66-1.25) mg/dL Phosphorus 6.1 H (2.5-4.5) mg/dL TIBC (228-460) ug/dL Crossmatch 10/28/20 10/28/20 Range/Units 05:10 10:54 RBC 2.50 L 2.55 L (4.30-5.90) m/uL Hgb 8.1 L 8.1 L (13.0-17.5) gm/dL Hct 24.4 L 25.2 L (39.0-53.0) % MCV (80.0-100.0) fL MCHC (31.0-37.0) g/dL RDW 16.1 H 16.0 H (11.5-15.5) % Plt Count 116 L 118 L (150-450) k/uL Lymphocytes # 0.5 L (1.0-4.8) k/uL PT (9.0-12.0) sec INR (<1.2) BUN (9-20) mg/dL Creatinine (0.66-1.25) mg/dL Phosphorus (2.5-4.5) mg/dL TIBC (228-460) ug/dL Crossmatch Microbiology - Last 24 Hours (Table) 10/24/20 19:43 Blood Culture - Preliminary Blood No Growth after 72 hours 10/24/20 19:43 Blood Culture - Preliminary Blood No Growth after 72 hours Diabetes panel 10/28/20 Range/Units 05:00 Sodium 140 (137-145) mmol/L Potassium 4.0 (3.5-5.1) mmol/L Chloride 107 (98-107) mmol/L Carbon Dioxide 25 (22-30) mmol/L BUN 50 H (9-20) mg/dL Creatinine 5.56 H (0.66-1.25) mg/dL Glucose 96 (74-99) mg/dL Calcium 9.0 (8.4-10.2) mg/dL Calcium panel 10/28/20 Range/Units 05:00 Calcium 9.0 (8.4-10.2) mg/dL Phosphorus 6.1 H (2.5-4.5) mg/dL Pituitary panel 10/28/20 Range/Units 05:00 Sodium 140 (137-145) mmol/L Potassium 4.0 (3.5-5.1) mmol/L Chloride 107 (98-107) mmol/L Carbon Dioxide 25 (22-30) mmol/L BUN 50 H (9-20) mg/dL Creatinine 5.56 H (0.66-1.25) mg/dL Glucose 96 (74-99) mg/dL Calcium 9.0 (8.4-10.2) mg/dL Adrenal panel 10/28/20 Range/Units 05:00 Sodium 140 (137-145) mmol/L Potassium 4.0 (3.5-5.1) mmol/L Chloride 107 (98-107) mmol/L Carbon Dioxide 25 (22-30) mmol/L BUN 50 H (9-20) mg/dL Creatinine 5.56 H (0.66-1.25) mg/dL Glucose 96 (74-99) mg/dL Calcium 9.0 (8.4-10.2) mg/dL Assessment and Plan Assessment: Upper GI bleed related to duodenal ulcer. Patient is receiving 2 units of packed red cells. I discussed the patient's son that he may require operative intervention. The patient will be watched closely.
[2020-10-28] MEDS: LACOSAMIDE IV 50 MG in SODIUM CHLORIDE 0.9% 50 ML IVPB SCH ×2 (13:45→22:26)
--- NOTE | 2020-10-28 14:03 | P.PN ---
Subjective Progress Note Date: 10/28/20 This is a 64-year-old male who was recently admitted with significant swelling noted to the left arm fistula and is being closely monitored. Patient is maintained on hemodialysis with a left arm fistula and nursing staff at the dialysis center were uncomfortable with accessing and sent here for further evaluation. Nephrology consulted along with vascular surgery and currently receiving hemodialysis today at the bedside. Patient continues to have significant left arm swelling and ordering CT of the left arm and report is pending. 10/27/2020 Patient is seen and evaluated in follow-up this morning currently receiving hemodialysis as he is maintained on Monday//Monday schedule and was admitted with overload and nephrology following closely. Vascular surgery also following as patient has continued left upper extremity swelling and CT noted to have a dilated dialysis catheter and surrounding edema in the subcutaneous area and dialysis catheter has been functioning and easily cannulated per dialysis nurse. Patient denies any left upper arm pain but is having some abdominal discomfort associated with nausea. States he did have a bowel movement today that was black and tarry and loose and have consulted GI. A hemoglobin was found to be 6.5 yesterday and was given 1 unit of PRBC and hemoglobin today is 8.2. Plans are for possible upper endoscopy tomorrow. Patient is maintained on IV Protonix twice daily and will continue at this time. 10/28/2020 Patient is seen in follow-up continues to be in the ICU being closely monitored and continues to have bleeding noted. Patient states that he had another episode of dark tarry stools and multiple episodes of hematemesis. Patient's repeat hemoglobin after 1 unit of PRBCs went up to 7.5 and continue to have bloody emesis and hemoglobin repeat was found to be 6.8 and given another unit and hemoglobin this morning is 8.1. Patient is scheduled to receive 2 more units of PRBCs. GI following closely and patient underwent EGD showing a large adherent clot in the antrum of the stomach occluding the entire lumen with inab ility to advance the scope into the duodenum but a small hiatal hernia. Patient is maintained on IV Protonix twice daily and will continue. Patient is currently nothing by mouth and takes multiple blood pressure medications and blood pressures have been elevated and patient is being started on Cleviprex for tighter hypertension control. No plans for dialysis today. Surgery has been consulted with discussion of possible clot evacuation and is closely monitoring and transfusing as necessary. To continue with hemoglobin every 6 hours. Review of systems: Constitutional: reports of fatigue, no reports of fever, or chills Cardiovascular: No reports of chest pain or palpitations Respiratory: No reports of shortness of breath or cough GI: Reports nausea with multiple episodes of hematemesis with continued abdominal pain : No reports of dysuria or retention Neurovascular: Reports generalized weakness All medications have been reviewed Active Medications Acetaminophen (Acetaminophen Tab 325 Mg Tab) 650 mg PO Q6HR PRN PRN Reason: Fever and/ or Pain Last Admin: 10/27/20 04:15 Dose: 650 mg Documented by: Amlodipine Besylate (Amlodipine 10 Mg Tab) 10 mg PO DAILY@0900 [facility] Last Admin: 10/28/20 10:31 Dose: Not Given Documented by: Carvedilol (Carvedilol 12.5 Mg Tab) 25 mg PO BID@0900,1700 [facility] Last Admin: 10/28/20 10:31 Dose: Not Given Documented by: Clonidine (Clonidine Hcl 0.1 Mg Tab) 0.3 mg PO TID@0600,1400,2200 [facility] Last Admin: 10/28/20 13:45 Dose: Not Given Documented by: Darbepoetin Juanpablo (Darbepoetin Juanpablo 40 Mcg/0.4 Ml Syringe) 40 mcg SQ Q7D [facility] Last Admin: 10/25/20 12:11 Dose: 40 mcg Documented by: Doxazosin Mesylate (Doxazosin 2 Mg Tab) 2 mg PO BID@0900,1700 [facility] Last Admin: 10/28/20 10:31 Dose: Not Given Documented by: Clevidipine 25 mg/ IV Solution 50 mls @ 2 mls/hr IV .Q24H [facility]; Protocol Last Titration: 10/28/20 12:46 Dose: 2 mg/hr, 4 mls/hr Documented by: Phytonadione 5 mg/ Sodium (Chloride) 50.5 mls @ 100 mls/hr IVPB DAILY [facility] Last Admin: 10/28/20 12:47 Dose: 100 mls/hr Documented by: Lacosamide 50 mg/ Sodium (Chloride) 55 mls @ 100 mls/hr IVPB TID [facility] Last Admin: 10/28/20 13:45 Dose: 100 mls/hr Documented by: Loperamide HCl (Loperamide 2 Mg Cap) 2 mg PO QID PRN PRN Reason: Diarrhea Metoclopramide HCl (Metoclopramide 5 Mg/Ml 2 Ml Vial) 5 mg IVP Q6H [facility] Last Admin: 10/28/20 08:30 Dose: 5 mg Documented by: Miscellaneous Information (Pneumonia Protocol Utilized 1 Each Misc) 1 each PO ONCE PRN PRN Reason: Per Protocol Morphine Sulfate (Morphine Sulfate 2 Mg/Ml Syringe) 2 mg IVP Q4HR PRN PRN Reason: Pain/Discomfort Last Admin: 10/28/20 05:43 Dose: 2 mg Documented by: Multivit/Ca Carb/B Cmplx/FA/Prenat (Folic Acid-Vit B Complex-Vit C 1 Cap) 1 each PO DAILY@0900 [facility] Last Admin: 10/28/20 10:31 Dose: Not Given Documented by: Patient's Own ( Patiromer Calcium Sorbitex [Veltassa] 8.4 Gm Powd.Pack) 8.4 gm PO DAILY@0900 [facility] Last Admin: 10/28/20 08:25 Dose: Not Given Documented by: Non Formulary Drug- (Lanthanum 1,000mg) 1,000 each PO TID@0800,1200,1700 [facility] Last Admin: 10/28/20 11:38 Dose: Not Given Documented by: Ondansetron HCl (Ondansetron 4 Mg/2 Ml Vial) 4 mg IVP Q6HR PRN PRN Reason: Nausea And Vomiting Last Admin: 10/28/20 01:27 Dose: 4 mg Documented by: Pantoprazole Sodium (Pantoprazole 40 Mg/10 Ml Vial) 40 mg IVP BID [facility] Last Admin: 10/28/20 08:31 Dose: 40 mg Documented by: Sevelamer Carbonate (Sevelamer 800 Mg Tab) 4,000 mg PO AC-TID [facility] Last Admin: 10/28/20 11:38 Dose: Not Given Documented by: Objective - Vital Signs Vital signs: Vital Signs Temp 97.6 F 10/28/20 12:00 Pulse 80 10/28/20 12:00 Resp 9 L 10/28/20 12:00 BP 147/83 10/28/20 12:00 Pulse Ox 92 L 10/28/20 12:00 Intake & Output 10/27/20 10/28/2021 18:59 06:59 18:59 Intake Total 550 841 0685 Output Total 700 1400 600 Balance -80 -960 740 Weight 67 kg Intake: IV 172 847 1739 0.9 NS 520 130 40 Piperacillin-Tazobactam 3 100 .375 gm In Sodium Chloride 0.9% 100 ml @ 25 mls/hr IVPB Q12H [facility] Rx# :[id number] Sodium Chloride 0.9% 1, 1000 000 ml @ 999 mls/hr IV . Q1H1M ONE Rx#:[id number] Blood Product 310 Rc As-1 Unit 310 [id number] Output: Urine 0 0 0 Emesis 700 1400 600 Other: # Voids 0 # Bowel Movements 1 - Exam Gen: This is a 64-year-old male awake, alert and oriented 2-3, thin built. Temp is 97.6 F, pulse is 80, respirations are 9, blood pressure is 147/83, oxyg en saturation is 92% on room air. HEENT: Head is atraumatic, normocephalic. Pupils equal, round. Sclerae is anicteric. NG tube noted NECK: Supple. No JVD. No lymphadenopathy. No thyromegaly. LUNGS: diminished breath sounds bilaterally with some scattered rhonchi noted. No intercostal retractions. HEART: S1, S2 muffled ABDOMEN: Soft. Tenderness of the left and right lower quadrants on palpation. Nondistended. Bowel sounds are present. No masses. EXTREMITIES: No pedal edema. No calf tenderness. left upper extremity swelling noted and dialysis fistula noted with a thrill NEUROLOGICAL: Patient is awake, alert and oriented x2-3. no focal deficits noted. Diffusely weak - Labs CBC & Chem 7: 10/28/20 10:54 10/28/20 05:00 Labs: Abnormal Lab Results - Last 24 Hours (Table) 10/26/20 10/27/20 10/27/20 Range/Units 10:07 05:30 13:51 RBC 2.34 L (4.30-5.90) m/uL Hgb 7.5 L (13.0-17.5) gm/dL Hct 23.3 L (39.0-53.0) % MCV (80.0-100.0) fL MCHC (31.0-37.0) g/dL RDW 16.3 H (11.5-15.5) % Plt Count 116 L (150-450) k/uL Lymphocytes # 0.5 L (1.0-4.8) k/uL PT (9.0-12.0) sec INR (<1.2) BUN (9-20) mg/dL Creatinine (0.66-1.25) mg/dL Phosphorus (2.5-4.5) mg/dL TIBC 191 L (228-460) ug/dL Crossmatch See Detail 10/27/20 10/27/20 10/28/20 Range/Units 13:52 21:15 05:00 RBC 2.19 L (4.30-5.90) m/uL Hgb 6.8 L* (13.0-17.5) gm/dL Hct 22.2 L (39.0-53.0) % MCV 101.1 H (80.0-100.0) fL MCHC 30.5 L (31.0-37.0) g/dL RDW 16.7 H (11.5-15.5) % Plt Count 101 L (150-450) k/uL Lymphocytes # 0.5 L (1.0-4.8) k/uL PT 12.1 H (9.0-12.0) sec INR 1.2 H (<1.2) BUN 50 H (9-20) mg/dL Creatinine 5.56 H (0.66-1.25) mg/dL Phosphorus 6.1 H (2.5-4.5) mg/dL TIBC (228-460) ug/dL Crossmatch 10/28/20 10/28/20 Range/Units 05:10 10:54 RBC 2.50 L 2.55 L (4.30-5.90) m/uL Hgb 8.1 L 8.1 L (13.0-17.5) gm/dL Hct 24.4 L 25.2 L (39.0-53.0) % MCV (80.0-100.0) fL MCHC (31.0-37.0) g/dL RDW 16.1 H 16.0 H (11.5-15.5) % Plt Count 116 L 118 L (150-450) k/uL Lymphocytes # 0.5 L (1.0-4.8) k/uL PT (9.0-12.0) sec INR (<1.2) BUN (9-20) mg/dL Creatinine (0.66-1.25) mg/dL Phosphorus (2.5-4.5) mg/dL TIBC (228-460) ug/dL Crossmatch Microbiology - Last 24 Hours (Table) 10/24/20 19:43 Blood Culture - Preliminary Blood No Growth after 72 hours 10/24/20 19:43 Blood Culture - Preliminary Blood No Growth after 72 hours Assessment and Plan Assessment: Left arm fistula swelling and dilatation with inability to perform dialysis acute upper GI bleed as noted on EGD with large adherent clot in the antrum of the stomach occluding the entire lumen with inability to advance in the duodenum with a small hiatal hernia, possible bleeding duodenal ulcer Acute blood loss anemia possibly secondary to GI bleed and possible anemia of chronic disease Possible right lower lobe pneumonia History of recent bilateral pneumonia of right more than left including the right upper lobe history of chronic kidney disease, end-stage renal disease Recent change in mental status acute metabolic encephalopathy secondary to uremia 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 Patient is receiving 2 more units of PRBC and hemoglobin is currently 8.1. Patient underwent EGD showing a large adherent clot in the antrum of the stomach occluding the entire lumen with inability to advance in the duodenum along with a small hiatal hernia and approximately 500-600 mL's of coffee-ground stomach material that was aspirated. GI following and surgical consult placed for possible clot evacuation and will be monitored closely in the ICU. Nephrology also following and patient is ma intained on Monday//Monday schedule with possibility of hemodialysis tomorrow. Patient has NG tube placed and will continue with nothing by mouth and patient also maintained on Cleviprex for blood pressure control as he takes multiple oral medications and is hypertensive today. Continue with IV Protonix twice daily. Patient continues on IV antibiotics with infectious disease following. Given patient's severity of symptoms and active bleeding patient will be closely monitored in the ICU. Prognosis remains guarded. Time with Patient: Greater than 30
--- NOTE | 2020-10-28 14:47 | PN ---
PROGRESS NOTE The patient is seen for followup for end-stage renal disease. He was admitted to the hospital with significant swelling of his arm and pseudoaneurysm formation and he is status post EGD today which showed significant blood clot, and Surgery has been consulted for possible surgical intervention. On examination today, blood pressure 142/77, heart rate 93 per minute. He is afebrile. EXAMINATION OF THE HEART: S1 and S2. EXAMINATION OF LUNGS: Bilateral breath sounds are heard. ABDOMEN: Soft, nontender. LOWER EXTREMITIES: Examination of lower extremities shows no significant edema. 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 Labs show hemoglobin 8.1, sodium 140, potassium 4.0, BUN 50, creatinine 5.56. ASSESSMENT: 1. End-stage renal disease, on hemodialysis on a Monday, , Monday schedule as outpatient. Will plan to dialyze tomorrow. 2. Gastrointestinal bleed with significant blood clot noted on EGD. General Surgery has been consulted for possible surgical intervention. 3. Acute blood loss anemia, status post packed RBC transfusion. 4. Pseudoaneurysm in the left arm AV fistula and swelling of the arm with negative Doppler for DVT. Patient see at [facility] and we will try and transfer the patient there, as he will not be able to get outpatient dialysis pseudoaneurysm is bigger and his arm is also much more swollen. He will need intervention by Vascular Surgery prior to restarting treatment as outpatient. 5. Chronic kidney disease mineral bone disorder. PLAN: Discussed with the hospitalist regarding transfer to [facility]. At this time beds are not available, and we will continue with inpatient dialysis for now. Surgery on consult for the GI bleed. MMODL / IJN: [id number] /
--- NOTE | 2020-10-28 18:04 | PN ---
PROGRESS NOTE DATE OF SERVICE: 10/28/2020 REASON FOR FOLLOWUP: Pneumonia. INTERVAL HISTORY: The patient did have multiple episodes of coffee-ground emesis. The patient is status post EGD, noted to have significant bleeding under the clot. Surgical consultation has been obtained. The patient is hemodynamically stable, not on any pressor support. The patient denies having any chest pain, shortness of breath or cough. No diarrhea. PHYSICAL EXAMINATION: On examination, blood pressure 153/75 with a pulse of 80, temperature 98. He is 92% on 2 L nasal cannula. GENERAL DESCRIPTION: General description is a middle-aged male lying in bed in no distress. RESPIRATORY SYSTEM: Unlabored breathing. Decreased breath sounds at the bases. No wheeze. HEART: S1, S2. Regular rate and rhythm. ABDOMEN: Soft. No tenderness. LABS: Hemoglobin 8.1, white count 7.5, BUN of 50, creatinine 5.56. DIAGNOSTIC IMPRESSION AND PLAN: Patient recently admitted to hospital with an episode of aspiration pneumonia, for which the patient is on Zosyn. Will continue while waiting for overall resolution of his GI issue. Continue with supportive care. MMODL / IJN: [id number] /
[2020-10-28 20:47] LABS: Basophils # (A) 0.1 k/uL (0-0.2); Basophils % (A) 1 %; Eosinophils # (A) 0.1 k/uL (0-0.7); Eosinophils % (A) 1 %; HCT 30.2 % (39.0-53.0); Hypochromasia Slight; Lymphocytes # (A) 0.7 k/uL (1.0-4.8); Lymphocytes % (A) 7 %; MCH 31.7 pg (25.0-35.0); MCHC 32.6 g/dL (31.0-37.0); Macrocytosis Slight; Mean Platelet Volume 9.5; Monocytes # (A) 0.6 k/uL (0-1.0); Monocytes % (A) 6 %; Neutrophils # (A) 8.1 k/uL (1.3-7.7); Neutrophils % (A) 84 %; Platelet Count 118 k/uL (150-450); Poikilocytosis Slight; RBC 3.12 m/uL (4.30-5.90); RDW 15.7 % (11.5-15.5); WBC 9.6 k/uL (3.8-10.6)
[2020-10-28 20:52] LABS: HGB 9.9 gm/dL (13.0-17.5)
[2020-10-29] MEDS: MORPHINE SULFATE 2 MG/ML SYRINGE IVP PRN (02:21)
[2020-10-29] MEDS: CLEVIDIPINE BUTYRATE 25 MG in EMPTY BAG 1 BAG IV SCH ×6 (02:25→22:47)
[2020-10-29] MEDS: METOCLOPRAMIDE 5 MG/ML 2 ML VIAL IVP SCH ×4 (03:50→20:23)
[2020-10-29 05:28] LABS: Anisocytosis Slight; Basophils % (A) 0 %; Eosinophils # (A) 0.1 k/uL (0-0.7); Eosinophils % (A) 2 %; HCT 29.2 % (39.0-53.0); HGB 9.6 gm/dL (13.0-17.5); Lymphocytes # (A) 0.6 k/uL (1.0-4.8); Lymphocytes % (A) 7 %; MCH 32.5 pg (25.0-35.0); MCV 98.3 fL (80.0-100.0); Macrocytosis Slight; Monocytes # (A) 0.4 k/uL (0-1.0); Monocytes % (A) 4 %; Neutrophils # (A) 7.7 k/uL (1.3-7.7); Neutrophils % (A) 86 %; Platelet Count 123 k/uL (150-450); Poikilocytosis Slight; RBC 2.97 m/uL (4.30-5.90); RDW 16.1 % (11.5-15.5)
[2020-10-29] MEDS: cloNIDine HCL 0.1 MG TAB PO SCH (05:50)
[2020-10-29 06:02] LABS: Calcium 8.9 mg/dL (8.4-10.2); Potassium 3.9 mmol/L (3.5-5.1)
[2020-10-29] MEDS: SEVELAMER 800 MG TAB PO SCH ×3 (06:37→17:14)
[2020-10-29] MEDS: LACOSAMIDE IV 50 MG in SODIUM CHLORIDE 0.9% 50 ML IVPB SCH (09:17)
[2020-10-29] MEDS: FOLIC ACID-VIT B COMPLEX-VIT C 1 CAP PO SCH (09:18)
[2020-10-29] MEDS: PIPERACILLIN-TAZOBACTAM 3.375 GM in SODIUM CHLORIDE 0.9% 100 ML IVPB SCH ×2 (10:08→20:24)
[2020-10-29] MEDS: PANTOPRAZOLE 40 MG/10 ML VIAL IVP SCH ×2 (10:09→20:23)
[2020-10-29] MEDS: PHYTONADIONE 5 MG in SODIUM CHLORIDE 0.9% 50 ML IVPB SCH (10:09)
[2020-10-29] MEDS: PATIROMER CALCIUM SORBITEX PO SCH (10:21)
[2020-10-29] MEDS: LANTHANUM 1000 MG PO SCH ×3 (10:21→17:14)
[2020-10-29 11:55] LABS: Albumin 2.8 g/dL (3.5-5.0); Potassium 3.4 mmol/L (3.5-5.1); Total Bilirubin 0.8 mg/dL (0.2-1.3); Total Protein 5.3 g/dL (6.3-8.2)
--- NOTE | 2020-10-29 14:10 | P.PN ---
Subjective Progress Note Date: 10/29/20 Principal diagnosis: Acute GI bleed This is a 64-year-old white male patient with past medical history of end-stage renal disease on hemodialysis on Monday, and Monday schedule, hypertension, former smoker, chronic anemia on Aranesp, who presented to the emergency department on 10/24/2020 for evaluation of increased swelling of the left arm, which was present for a couple of weeks prior to hospitalization. Patient is a poor historian, he states that the dialysis fistula was placed several years ago. We saw the patient in consultation recently on 10/16/2020 wh en he was hospitalized with altered mental status, acute bilateral pneumonia with significant consolidation in the right upper lobe, with sepsis, uremia, and acute rhabdomyolysis after missing hemodialysis for a week. There was questionable papilledema involving the right optic nerve, with possibility of CVA at that time and patient was evaluated by both neurology and ophthalmology. Patient was treated with antibiotics, he was dialyzed, he clinically improved, and he was discharged to [facility] for continued PT and OT therapy on 10/22/2020 to complete an oral course of Augmentin [id number] mg twice daily for 7 more days. On 10/24/2020 patient was brought back to the hospital for reevaluation for the swelling of the left upper arm, denied any dyspnea or fevers, denied any cough, his admission chest x-ray showed a bilateral pneumonia that was improving compared his most recent chest x-ray prior to discharge from the hospital. There was a new small infiltrate in the right lung base compared the previous chest x-ray. Left upper extremity Doppler showed no evidence of DVT in the left arm. Patient was placed on a combination of azithromycin and Zosyn. He was receiving hemodialysis and had a hemodialysis session on 10/26/2020 with removal of 3 L of fluid, and again today on 10/27/2020. Today rapid response team was called to the bedside for concern of an episode of hematemesis, and an episode of dark tarry stools. Yesterday patient received a unit of packed red blood cells for a hemoglobin of 6.5, and this morning his hemoglobin was up to 8.2 and recheck in the afternoon came back at 7.5. Patient was transferred to the intensive care unit. Currently his blood pressure is 91/53, he is breathing comfortably, he denies any bony complaints, he is on room air with a pulse ox of 91-96%, he is awake and alert, oriented to self, and to place. He is afebrile, no complaints of chest discomfort. He was started on IV Protonix 40 mg twice daily, and GI service has been consulted and patient is nothing by mouth for possible EGD and colonoscopy tomorrow on 10/28/2020. On 10/28/2020 patient is seen in follow-up in intensive care unit, he is still having episodes of hematemesis, he has had 3 episodes overnight, last one this morning at 7 AM dark bloody emesis approximately 500 mL in the emesis basin. Abdomen is soft. And has remained nothing by mouth tonight, EGD is planned for this morning, last night he received additional unit of blood for hemoglobin of 6.8, this morning's hemoglobin is 8.1, white count is 6.3, his had no fever or chills, he has had no difficulty breathing, no cough, no chest pain. Sinus mechanism, tachycardic with a rate of 108 BPM, room air pulse ox is 95%, a bit hypertensive this morning, with a blood pressure in the 160s to 180 systolic, and 80s to 90s diastolic. His chest x-ray today shows a stable chest, with the right upper lobe density, and left lower lobe density unchanged. Clinically patient is not complaining of any pulmonary complaints. His blood cultures has remained negative. His electrolytes are unremarkable today, his BUN is 50, and creatinine is 5.56. On 10/29/2020 patient is seen in follow-up in intensive care unit, he is resting in bed, NG tube was inserted yesterday, and there has been 700 mL of dark maroon colored emesis, gastric drainage in the last 24 hours in addition to several episodes of hematemesis yesterday prior to NG tube insertion. Patient is awake and alert, he is oriented 3, he appears to be in no acute distress other than having the sore throat and discomfort related to NG tube placement. Remains on Cleviprex at 3 mg per hour, blood pressure is currently better controlled, patient has not been able to take any of his oral antihypertensives related to active GI bleeding for last 24 hours. He remains nothing by mouth, abdomen is soft, nontender, no nausea. No cough, no chest discomfort. His had no fever or chills, he is in sinus mechanism with a rate of 91 BPM, he is status post transfusion with 4 units of packed red blood cells 2 of them were transfused ye sterday, today's hemoglobin is 9.6. Recent blood work has been reviewed showing potassium 3.9, BUN 63 creatinine 6.91 and patient is having another hemodialysis treatment today. We stopped his antibiotics yesterday is his aspiration pneumonia has cleared up, and patient was having no significant pulmonary symptoms, no fever or chills, ID service is following and has restarted the patient on Zosyn. Cultures remained negative. No leukocytosis on his blood work. Yesterday general surgery was consulted for possibility of surgical intervention in regards to a large gastric ulcer with a large adherent clot. Currently hemodynamically patient has remained stable not requiring any vasopressor support. He is being monitored for any further bleeding, surgery is following. Objective - Vital Signs Vital signs: Vital Signs Temp 97.2 F L 10/29/20 09:30 Pulse 85 10/29/20 10:00 Resp 12 10/29/20 10:00 BP 139/81 10/29/20 10:00 Pulse Ox 97 10/29/20 10:00 Intake & Output 10/28/20 10/29/20 10/29/20 18:59 06:59 18:59 Intake Total 2750.000 228.2 180 Output Total 747 162 2632 Balance 1840.000 -221.8 -1820 Weight 67.2 kg Intake: IV 1460 130 180 0.9 NS 110 130 30 Phytonadione 5 mg In 50 50 Sodium Chloride 0.9% 50 ml @ 100 mls/hr IVPB DAILY [facility] Rx#:[id number] Piperacillin-Tazobactam 3 100 .375 gm In Sodium Chloride 0.9% 100 ml @ 25 mls/hr IVPB Q12H [facility] Rx# :[id number] Sodium Chloride 0.9% 1, 1000 000 ml @ 999 mls/hr IV . Q1H1M [facility] Rx#:[id number] Intake, IV Titration 50.000 98.2 Amount Clevidipine Butyrate 25 50.000 98.2 mg In Empty Bag 1 bag @ 1 MG/HR 2 mls/hr IV .Q24H [facility] Rx#:[id number] Blood Product 1240 Rc As-1 Unit 310 [id number] As-1 Unit 310 [id number] Output: Gastric Drainage 250 450 Urine 60 0 Emesis 600 Hemodialysis 2000 Other: # Voids 0 # Bowel Movements 1 - Exam GENERAL EXAM: Alert, very pleasant, 64-year-old white male, breathing comfortably, with a pulse ox of 91-97%, comfortable in no apparent distress. Patient has a NG-tube in place HEAD: Normocephalic/atraumatic. EYES: Normal reaction of pupils, equal size. Conjunctiva pink, sclera white. NOSE: Clear with pink turbinates. NG tube in place to low intermittent suction, with suction canister being full of dark maroonish-colored emesis THROAT: No erythema or exudates. NECK: No masses, no JVD, no thyroid enlargement, no adenopathy. CHEST: No chest wall deformity. Symmetrical expansion. LUNGS: Equal air entry with no crackles, wheeze, rhonchi or dullness. CVS: Regular rate and rhythm, normal S1 and S2, no gallops, no murmurs, no rubs ABDOMEN: Soft, nontender. No hepatosplenomegaly, normal bowel sounds, no guarding or rigidity. EXTREMITIES: No clubbing, no edema, no cyanosis, 2+ pulses and upper and lower extremities. Left upper arm fistula present, and there is swelling involving the left upper arm MUSCULOSKELETAL: Muscle strength and tone normal. SPINE: No scoliosis or deformity SKIN: No rashes CENTRAL NERVOUS SYSTEM: Alert and oriented -3. No focal deficits, tone is normal in all 4 extremities. PSYCHIATRIC: Alert and oriented -3. Appropriate affect. Intact judgment and insight. - Labs CBC & Chem 7: 10/29/20 04:56 10/29/20 10:35 Labs: Abnormal Lab Results - Last 24 Hours (Table) 10/26/20 10/28/20 10/29/20 Range/Units 10:07 20:30 04:56 RBC 3.12 L 2.97 L (4.30-5.90) m/uL Hgb 9.9 L D 9.6 L (13.0-17.5) gm/dL Hct 30.2 L 29.2 L (39.0-53.0) % RDW 15.7 H 16.1 H (11.5-15.5) % Plt Count 118 L 123 L (150-450) k/uL Neutrophils # 8.1 H (1.3-7.7) k/uL Lymphocytes # 0.7 L 0.6 L (1.0-4.8) k/uL Sodium (137-145) mmol/L Potassium (3.5-5.1) mmol/L Chloride (98-107) mmol/L Carbon Dioxide (22-30) mmol/L BUN (9-20) mg/dL Creatinine (0.66-1.25) mg/dL Total Protein (6.3-8.2) g/dL Albumin (3.5-5.0) g/dL Crossmatch See Detail 10/29/20 10/29/20 Range/Units 04:56 10:35 RBC (4.30-5.90) m/uL Hgb (13.0-17.5) gm/dL Hct (39.0-53.0) % RDW (11.5-15.5) % Plt Count (150-450) k/uL Neutrophils # (1.3-7.7) k/uL Lymphocytes # (1.0-4.8) k/uL Sodium 136 L (137-145) mmol/L Potassium 3.4 L (3.5-5.1) mmol/L Chloride 108 H (98-107) mmol/L Carbon Dioxide 20 L (22-30) mmol/L BUN 63 H 31 H (9-20) mg/dL Creatinine 6.91 H 4.01 H (0.66-1.25) mg/dL Total Protein 5.3 L (6.3-8.2) g/dL Albumin 2.8 L (3.5-5.0) g/dL Crossmatch Microbiology - Last 24 Hours (Table) 10/24/20 19:43 Blood Culture - Preliminary Blood No Growth after 96 hours 10/24/20 19:43 Blood Culture - Preliminary Blood No Growth after 96 hours Assessment and Plan Plan: Assessment: #1. Acute GI bleeding, acute on chronic GI blood loss anemia. Patient had an episode of hematemesis and dark tarry stools, patient has received 4 units of packed red blood cells thus far, this morning his hemoglobin is 9.6. #2. A large gastric ulcer with large adherent clot in the antrum of the s tomach, occluding the entire lumen, seen on the EGD today on 10/28/2020, surgical consultation has been placed in pending at this time. Small hiatal hernia #3. Left upper arm swelling, at the site of hemodialysis AV fistula, Doppler ultrasound showed no evidence of DVT, and CT scan of the left arm showed extensive subcutaneous emphysema #4. Recent hospitalization for acute metabolic encephalopathy, bilateral pneumonia possibly related to aspiration, sepsis, possible papilledema #5. End-stage renal disease on hemodialysis on Monday schedule #6. Hypertension #7. Former smoker #8. Papilledema involving the right optic nerve during most recent admission. CT of the head and CTA head and neck were unremarkable, MRI of the brain with no evidence of recent infarct #9. General medical debility Plan: Continue serial H&H's Today's labs have been reviewed, this was hemoglobin is 9.6 Not requiring any vasopressor support Continue with hemodialysis Breathing comfortably No fever or chills Antibiotics can be discontinued as his aspiration pneumonia has cleared up NG tube is in place, still having significant drainage with dark bloody output Patient is nothing by mouth Gen. surgery is following We'll continue to monitor the patient in the intensive care unit I performed a history & physical examination of the patient and discussed their management with my nurse practitioner, Acacia Guzman. I reviewed the nurse practitioner's note and agree with the documented findings and plan of care. Lung sounds are positive for diminished breath sounds throughout the lung hurtado. The findings and the impression was discussed with the patient. I attest to the documentation by the nurse practitioner. Time with Patient: Greater than 30
--- NOTE | 2020-10-29 14:38 | P.PN ---
Subjective Progress Note Date: 10/29/20 Principal diagnosis: Left upper extremity swelling Patient was seen and examined in the ICU. He is status post EGD yesterday with findings of large adherent clot in the antrum of the stomach occluding the entire lumen and the scope could not be advanced into the duodenum, small hiatal hernia. Gen. surgery was consult, Dr. Vidal saw the patient, no plans for surgical intervention at this time. Patient has NG tube in place, nursing reports 350 mL of dark red output through the night. He has 100 mL of dark red output currently. States his abdominal pain has improved, he has had no vomiting this morning. Reported that he had a small firm bowel movement which was dark. Hemoglobin is stable at 9.4. Patient has had a total of 4 units of PRBC transfusion. Patient underwent hemodialysis this morning. Objective - Vital Signs Vital signs: Vital Signs Temp 97.2 F L 10/29/20 09:30 Pulse 90 10/29/20 09:30 Resp 18 10/29/20 09:30 BP 147/80 10/29/20 09:30 Pulse Ox 88 L 10/29/20 07:00 Intake & Output 10/28/20 10/29/20 10/29/20 18:59 06:59 18:59 Intake Total 2750.000 178.2 Output Total 770 896 1631 Balance 1840.000 -271.8 -2000 Weight 67.2 kg Intake: IV 1460 130 0.9 NS 110 130 Phytonadione 5 mg In 50 Sodium Chloride 0.9% 50 ml @ 100 mls/hr IVPB DAILY [facility] Rx#:[id number] Sodium Chloride 0.9% 1, 1000 000 ml @ 999 mls/hr IV . Q1H1M [facility] Rx#:[id number] Intake, IV Titration 50.000 48.2 Amount Clevidipine Butyrate 25 50.000 48.2 mg In Empty Bag 1 bag @ 1 MG/HR 2 mls/hr IV .Q24H [facility] Rx#:[id number] Blood Product 1240 Rc As-1 Unit 310 [id number] As-1 Unit 310 [id number] Output: Gastric Drainage 250 450 Urine 60 Emesis 600 Hemodialysis 2000 Other: # Voids 0 # Bowel Movements 1 - Exam General appearance: The patient is alert, oriented, appears in no acute distress. HET: Head is normocephalic and atraumatic. Conjunctiva pink. Sclera anicteric. Neck: Supple without lymphadenopathy. Abdomen: Soft, nontender, nondistended with bowel sounds. No guarding or rigidity. Extremities: Normal skin color and turgor. No pedal edema Skin: No rashes, no jaundice Neurological: No focal deficits. Alert and oriented 3. - Labs CBC & Chem 7: 10/29/20 04:56 10/29/20 10:35 Labs: Abnormal Lab Results - Last 24 Hours (Table) 10/26/20 10/28/20 10/28/20 Range/Units 10:07 10:54 20:30 RBC 2.55 L 3.12 L (4.30-5.90) m/uL Hgb 8.1 L 9.9 L D (13.0-17.5) gm/dL Hct 25.2 L 30.2 L (39.0-53.0) % RDW 16.0 H 15.7 H (11.5-15.5) % Plt Count 118 L 118 L (150-450) k/uL Neutrophils # 8.1 H (1.3-7.7) k/uL Lymphocytes # 0.7 L (1.0-4.8) k/uL Chloride (98-107) mmol/L Carbon Dioxide (22-30) mmol/L BUN (9-20) mg/dL Creatinine (0.66-1.25) mg/dL Crossmatch See Detail 10/29/20 10/29/20 Range/Units 04:56 04:56 RBC 2.97 L (4.30-5.90) m/uL Hgb 9.6 L (13.0-17.5) gm/dL Hct 29.2 L (39.0-53.0) % RDW 16.1 H (11.5-15.5) % Plt Count 123 L (150-450) k/uL Neutrophils # (1.3-7.7) k/uL Lymphocytes # 0.6 L (1.0-4.8) k/uL Chloride 108 H (98-107) mmol/L Carbon Dioxide 20 L (22-30) mmol/L BUN 63 H (9-20) mg/dL Creatinine 6.91 H (0.66-1.25) mg/dL Crossmatch Microbiology - Last 24 Hours (Table) 10/24/20 19:43 Blood Culture - Preliminary Blood No Growth after 96 hours 10/24/20 19:43 Blood Culture - Preliminary Blood No Growth after 96 hours Assessment and Plan (1) Melena Narrative/Plan: 64-year-old male with multiple comorbidities including end-stage renal disease on hemodialysis who came into the emergency department for left upper extremity swelling. He has been seen and evaluated by vascular surgery with no vascular surgical intervention indicated. The patient has a history of chronic anemia. GI was consult for anemia with reports of a black tarry stool. He has no previous history of peptic ulcer disease, no use of NSAIDs, he does take a low- dose baby aspirin daily, no anticoagulation, he has no history of previous EGD, and his last endoscopy was greater than 5 years ago which she states was normal. On admission he was noted to have a hemoglobin of 8.6, it dropped to 6.5 yesterday and he received 1 unit of PRBC transfusion. Today's repeat is 8.2. He denies any abdominal pain or vomiting, but he is complaining of nausea. Likely we are dealing with an upper GI source of blood loss on top of chronic anemia. Possible etiologies could include AVM, peptic ulcer disease, gastritis, esophagitis, or other etiology. Would recommend upper endoscopy. A shunt underwent EGD with findings of a large adherent clot in the antrum of the stomach occluding the entire lumen and the scope could not be advanced into the duodenum. Small hiatal hernia. Surgery was consulted, no plans at this time for any surgical intervention. Current Visit: Yes Status: Acute Code(s): K92.1 - MELENA SNOMED Code(s): 3258549 (2) Chronic anemia Current Visit: Yes Status: Acute Code(s): D64.9 - ANEMIA, UNSPECIFIED SNOMED Code(s): 029216228 (3) End-stage renal disease on hemodialysis Current Visit: Yes Status: Acute Code(s): N18.6 - END STAGE RENAL DISEASE; Z99.2 - DEPENDENCE ON RENAL DIALYSIS SNOMED Code(s): 812463986 Plan: 1. Continue symptomatic and supportive care 2. Daily CBC, transfuse for hemoglobin less than 7 3. NG tube with intermittent suction NG tube 4. Protonix 40 mg IV twice a day 5. Antiemetics as needed 6. Hemodialysis as ordered per nephrology 7. May have clear liquid diet, nothing by mouth after midnight 8. Gen. surgery on consult, following closely 9. Further recommendations to follow based on clinical course Thank you for this consultation, we will continue to follow. Dr. Mackenzie Mcdaniel I agree with the dictator's note, documented as a scribe by Valeria Wilkerson.
--- NOTE | 2020-10-29 16:23 | PN ---
PROGRESS NOTE Patient is seen for followup for end-stage renal disease. The patient was dialyzed this morning. He tolerated his treatment fairly well. He had about 2 L of ultrafiltration. Patient continues to have bleeding from the NG tube. His hemoglobin is fairly stable at 9.6 g/dL. Surgery is on consult. No plans for surgery at this point. PHYSICAL EXAMINATION: On examination this morning, blood pressure was 139/81, heart rate 85 per minute. Patient is afebrile. EXAMINATION OF THE HEART: S1 and S2. EXAMINATION OF LUNGS: Bilateral breath sounds are heard. Decreased breath sounds at the bases. ABDOMEN: Soft, nontender. LOWER EXTREMITIES: Examination of lower extremities shows no significant edema. Left upper arm AV fistula has pseudoaneurysms and the arm is swollen. METAL FURRER EXAM: Grossly intact. LABS: Labs show hemoglobin 9.6, sodium 136, potassium 3.4, BUN 31, creatinine 4.0. ASSESSMENT: 1. End-stage renal disease, on hemodialysis on a Monday, , Monday schedule. 2. Acute gastrointestinal bleed with EGD showing large clot in the stomach, currently being followed by Surgery as well. Patient continues to have bleeding from the NG tube. Hemoglobin is stable. Surgery on consult. 3. Recent hospitalization for pneumonia, status post antibiotics. 4. Chronic kidney disease mineral bone disorder. 5. Hypertension. Currently on Cleviprex drip since patient is n.p.o. PLAN: Next dialysis on Monday. I will give a dose of DDAVP. MMODL / IJN: [id number] /
[2020-10-29] MEDS ORDERED: DESMOPRESSIN ACETATE 20 MCG in SODIUM CHLORIDE 0.9% 50 ML IVPB ONE (17:00)
[2020-10-29 17:48] LABS: HCT 30.6 % (39.0-53.0); HGB 10.3 gm/dL (13.0-17.5); Hypochromasia Slight; MCH 32.8 pg (25.0-35.0); MCHC 33.8 g/dL (31.0-37.0); MCV 97.1 fL (80.0-100.0); Mean Platelet Volume 8.9; Platelet Count 117 k/uL (150-450); Poikilocytosis Slight; RBC 3.15 m/uL (4.30-5.90); RDW 15.4 % (11.5-15.5); WBC 9.3 k/uL (3.8-10.6)
--- NOTE | 2020-10-29 18:06 | PN ---
PROGRESS NOTE DATE OF SERVICE: 10/29/2020 REASON FOR FOLLOWUP: Aspiration pneumonia. INTERVAL HISTORY: The patient is afebrile. The patient still has the NG and it is draining blood- stained secretions. Patient is complaining of the NG and wants it to be out. Denies any chest pain, shortness of breath or cough. No abdominal pain or diarrhea. PHYSICAL EXAMINATION: Blood pressure is 139/81 with a pulse of 85, temperature 97.2. He is 97% on room air. GENERAL DESCRIPTION: General description is a middle-aged male lying in bed in no distress. RESPIRATORY SYSTEM: Unlabored breathing. Decreased breath sounds in the base. No wheeze. HEART: S1, S2. Regular rate and rhythm. ABDOMEN: Soft. No tenderness. LABS: Hemoglobin is 9 , white count 9.0, BUN of 31, creatinine 4.1. DIAGNOSTIC IMPRESSION AND PLAN: Patient with aspiration pneumonia, admitted to hospital with swelling to the left arm, now with evidence of acute GI bleed, being monitored by GI and the surgery service. Patient is covered with Zosyn; to continue while monitoring clinical course closely. Continue with supportive care. MMODL / IJN: [id number] / [id number]
[2020-10-30] MEDS ORDERED: LORazepam 2 MG/ML INJ IV PRN (00:32)
[2020-10-30 00:48] LABS: HCT 26.3 % (39.0-53.0); HGB 9.1 gm/dL (13.0-17.5); MCH 33.2 pg (25.0-35.0); MCHC 34.7 g/dL (31.0-37.0); MCV 95.6 fL (80.0-100.0); Mean Platelet Volume 9.5; Platelet Count 101 k/uL (150-450); RBC 2.75 m/uL (4.30-5.90)
[2020-10-30] MEDS: CLEVIDIPINE BUTYRATE 25 MG in EMPTY BAG 1 BAG IV SCH ×5 (01:30→16:13)
[2020-10-30] MEDS: METOCLOPRAMIDE 5 MG/ML 2 ML VIAL IVP SCH ×3 (03:11→16:13)
--- NOTE | 2020-10-30 04:10 | P.PN ---
Subjective Progress Note Date: 10/29/20 This is a 64-year-old male who was recently admitted with significant swelling noted to the left arm fistula and is being closely monitored. Patient is maintained on hemodialysis with a left arm fistula and nursing staff at the dialysis center were uncomfortable with accessing and sent here for further evaluation. Nephrology consulted along with vascular surgery and currently receiving hemodialysis today at the bedside. Patient continues to have significant left arm swelling and ordering CT of the left arm and report is pending. 10/27/2020 Patient is seen and evaluated in follow-up this morning currently receiving hemodialysis as he is maintained on Monday//Monday schedule and was admitted with overload and nephrology following closely. Vascular surgery also following as patient has continued left upper extremity swelling and CT noted to have a dilated dialysis catheter and surrounding edema in the subcutaneous area and dialysis catheter has been functioning and easily cannulated per dialysis nurse. Patient denies any left upper arm pain but is having some abdominal discomfort associated with nausea. States he did have a bowel movement today that was black and tarry and loose and have consulted GI. A hemoglobin was found to be 6.5 yesterday and was given 1 unit of PRBC and hemoglobin today is 8.2. Plans are for possible upper endoscopy tomorrow. Patient is maintained on IV Protonix twice daily and will continue at this time. 10/28/2020 Patient is seen in follow-up continues to be in the ICU being closely monitored and continues to have bleeding noted. Patient states that he had another episode of dark tarry stools and multiple episodes of hematemesis. Patient's repeat hemoglobin after 1 unit of PRBCs went up to 7.5 and continue to have bloody emesis and hemoglobin repeat was found to be 6.8 and given another unit and hemoglobin this morning is 8.1. Patient is scheduled to receive 2 more units of PRBCs. GI following closely and patient underwent EGD showing a large adherent clot in the antrum of the stomach occluding the entire lumen with inab ility to advance the scope into the duodenum but a small hiatal hernia. Patient is maintained on IV Protonix twice daily and will continue. Patient is currently nothing by mouth and takes multiple blood pressure medications and blood pressures have been elevated and patient is being started on Cleviprex for tighter hypertension control. No plans for dialysis today. Surgery has been consulted with discussion of possible clot evacuation and is closely monitoring and transfusing as necessary. To continue with hemoglobin every 6 hours. 10/29/2020 Patient is seen and evaluated in follow up this morning and is being closely monitored in the ICU with multiple medical consultations following including GI, nephrology, nursing assoc, and general surgery. Patient continues with NG tube with coffee ground drainage noted of approximately 350 output since last night. Patient is to receive dialysis today. Patient remains NPO. Hemoglobin today status post an additional 2 units of PRBC received yesterday is 9.6 and will continue with H&H every six hours for close monitoring. WBC is 9.0 and patient is afebrile. Infectious disease following as well and patient continues on IV zosyn for possible aspiration pneumonia. Potassium 3.4 and will replace per protocol. Left upper extremity continues with swelling in the hand and forearm. Dialysis shunt easily cannulated by hemodialysis nurse this morning. Review of systems: Constitutional: reports of fatigue, no reports of fever, or chills Cardiovascular: No reports of chest pain or palpitations Respiratory: No reports of shortness of breath or cough GI: Reports occasional nausea with no further episodes of vomiting overnight with continued lower left and right abdominal discomfort : No reports of dysuria or retention Neurovascular: Reports generalized weakness All medications have been reviewed Active Medications Acetaminophen (Acetaminophen Tab 325 Mg Tab) 650 mg PO Q6HR PRN PRN Reason: Fever and/ or Pain Last Admin: 10/27/20 04:15 Dose: 650 mg Documented by: Darbepoetin Juanpablo (Darbepoetin Juanpablo 40 Mcg/0.4 Ml Syringe) 40 mcg SQ Q7D [facility] Last Admin: 10/25/20 12:11 Dose: 40 mcg Documented by: Clevidipine 25 mg/ IV Solution 50 mls @ 2 mls/hr IV .Q24H [facility]; Protocol Last Admin: 10/29/20 15:38 Dose: 12 mg/hr, 24 mls/hr Documented by: Phytonadione 5 mg/ Sodium (Chloride) 50.5 mls @ 100 mls/hr IVPB DAILY [facility] Last Admin: 10/29/20 10:09 Dose: 100 mls/hr Documented by: Piperacillin Sod/Tazobactam (Sod 3.375 gm/ Sodium Chloride) 100 mls @ 25 mls/hr IVPB Q12HR [facility] Last Admin: 10/29/20 10:08 Dose: 25 mls/hr Documented by: Desmopressin Acetate 20 mcg/ (Sodium Chloride) 55 mls @ 200 mls/hr IVPB ONCE ONE Stop: 10/29/20 16:16 Loperamide HCl (Loperamide 2 Mg Cap) 2 mg PO QID PRN PRN Reason: Diarrhea Metoclopramide HCl (Metoclopramide 5 Mg/Ml 2 Ml Vial) 5 mg IVP Q6H [facility] Last Admin: 10/29/20 10:09 Dose: 5 mg Documented by: Miscellaneous Information (Pneumonia Protocol Utilized 1 Each Misc) 1 each PO ONCE PRN PRN Reason: Per Protocol Morphine Sulfate (Morphine Sulfate 2 Mg/Ml Syringe) 2 mg IVP Q4HR PRN PRN Reason: Pain/Discomfort Last Admin: 10/29/20 02:21 Dose: 2 mg Documented by: Multivit/Ca Carb/B Cmplx/FA/Prenat (Folic Acid-Vit B Complex-Vit C 1 Cap) 1 ea ch PO DAILY@0900 [facility] Last Admin: 10/29/20 09:18 Dose: Not Given Documented by: Patient's Own ( Patiromer Calcium Sorbitex [Veltassa] 8.4 Gm Powd.Pack) 8.4 gm PO DAILY@0900 [facility] Last Admin: 10/29/20 10:21 Dose: Not Given Documented by: Non Formulary Drug- (Lanthanum 1,000mg) 1,000 each PO TID@0800,1200,1700 [facility] Last Admin: 10/29/20 13:24 Dose: Not Given Documented by: Ondansetron HCl (Ondansetron 4 Mg/2 Ml Vial) 4 mg IVP Q6HR PRN PRN Reason: Nausea And Vomiting Last Admin: 10/28/20 01:27 Dose: 4 mg Documented by: Pantoprazole Sodium (Pantoprazole 40 Mg/10 Ml Vial) 40 mg IVP BID [facility] Last Admin: 10/29/20 10:09 Dose: 40 mg Documented by: Sevelamer Carbonate (Sevelamer 800 Mg Tab) 4,000 mg PO AC-TID [facility] Last Admin: 10/29/20 13:24 Dose: Not Given Documented by: Objective - Vital Signs Vital signs: Vital Signs Temp 98.3 F 10/29/20 04:00 Pulse 94 10/29/20 07:00 Resp 13 10/29/20 07:00 BP 147/78 10/29/20 07:00 Pulse Ox 88 L 10/29/20 07:00 Intake & Output 10/28/20 10/29/20 10/29/20 18:59 06:59 18:59 Intake Total 2750.000 178.2 Output Total 910 450 Balance 1840.000 -271.8 Weight 67.2 kg Intake: IV 1460 130 0.9 NS 110 130 Phytonadione 5 mg In 50 Sodium Chloride 0.9% 50 ml @ 100 mls/hr IVPB DAILY [facility] Rx#:[id number] Sodium Chloride 0.9% 1, 1000 000 ml @ 999 mls/hr IV . Q1H1M [facility] Rx#:[id number] Intake, IV Titration 50.000 48.2 Amount Clevidipine Butyrate 25 50.000 48.2 mg In Empty Bag 1 bag @ 1 MG/HR 2 mls/hr IV .Q24H [facility] Rx#:[id number] Blood Product 1240 Rc As-1 Unit 310 [id number] Rc As-1 Unit 310 [id number] Output: Gastric Drainage 250 450 Urine 60 Emesis 600 Other: # Voids 0 # Bowel Movements 1 - Exam Gen: This is a 64-year-old male awake, alert and oriented 2-3, thin built. Temp is 97.9 F, pulse is 97, respirations are 14, blood pressure is 124/75, oxygen saturation is 94% on room air. HEENT: Head is atraumatic, normocephalic. Pupils equal, round. Sclerae is anicteric. NG tube noted NECK: Supple. No JVD. No lymphadenopathy. No thyromegaly. LUNGS: diminished breath sounds bilaterally with some scattered rhonchi noted. No intercostal retractions. HEART: S1, S2 muffled ABDOMEN: Soft. Tenderness of the left and right lower quadrants on palpation. Non-distended. Bowel sounds are present. No masses. EXTREMITIES: No pedal edema. No calf tenderness. left upper extremity swelling noted and dialysis fistula noted with a thrill, swelling continues of the left hand and forearm and elevated on a pillow on exam NEUROLOGICAL: Patient is awake, alert and oriented x2-3. no focal deficits note d. Diffusely weak - Labs CBC & Chem 7: 10/30/20 00:29 10/29/20 10:35 Labs: Abnormal Lab Results - Last 24 Hours (Table) 10/26/20 10/28/20 10/28/20 Range/Units 10:07 10:54 20:30 RBC 2.55 L 3.12 L (4.30-5.90) m/uL Hgb 8.1 L 9.9 L D (13.0-17.5) gm/dL Hct 25.2 L 30.2 L (39.0-53.0) % RDW 16.0 H 15.7 H (11.5-15.5) % Plt Count 118 L 118 L (150-450) k/uL Neutrophils # 8.1 H (1.3-7.7) k/uL Lymphocytes # 0.7 L (1.0-4.8) k/uL Chloride (98-107) mmol/L Carbon Dioxide (22-30) mmol/L BUN (9-20) mg/dL Creatinine (0.66-1.25) mg/dL Crossmatch See Detail 10/29/20 10/29/20 Range/Units 04:56 04:56 RBC 2.97 L (4.30-5.90) m/uL Hgb 9.6 L (13.0-17.5) gm/dL Hct 29.2 L (39.0-53.0) % RDW 16.1 H (11.5-15.5) % Plt Count 123 L (150-450) k/uL Neutrophils # (1.3-7.7) k/uL Lymphocytes # 0.6 L (1.0-4.8) k/uL Chloride 108 H (98-107) mmol/L Carbon Dioxide 20 L (22-30) mmol/L BUN 63 H (9-20) mg/dL Creatinine 6.91 H (0.66-1.25) mg/dL Crossmatch Microbiology - Last 24 Hours (Table) 10/24/20 19:43 Blood Culture - Preliminary Blood No Growth after 96 hours 10/24/20 19:43 Blood Culture - Preliminary Blood No Growth after 96 hours Assessment and Plan Assessment: Left arm fistula swelling and dilatation with inability to perform dialysis acute upper GI bleed as noted on EGD with large adherent clot in the antrum of the stomach occluding the entire lumen with inability to advance in the duodenum with a small hiatal hernia, possible bleeding duodenal ulcer Acute blood loss anemia possibly secondary to GI bleed and possible anemia of chronic disease Possible right lower lobe pneumonia History of recent bilateral pneumonia of right more than left including the right upper lobe history of chronic kidney disease, end-stage renal disease Recent change in mental status acute metabolic encephalopathy secondary to uremia History of papilledema in the right optic nerve recently History of rhabdomyolysis recently GI prophylaxis DVT prophylaxis Full code Recommendations and discussion: Recommend to continue with current medications, hemoglobins every 6 hours and close monitoring for continued bleeding. Patient hemoglobin this morning is 9.6 status post 2 units of PRBCs. Patient underwent EGD showing a large adherent clot in the antrum of the stomach occluding the entire lumen with inability to advance in the duodenum along with a small hiatal hernia and approximately 500-6 00 mL's of coffee-ground stomach material that was aspirated. GI following and surgical following as well for possible clot evacuation and will be monitored closely in the ICU. Patient continues on Vitamin K daily as well. Nephrology also following and patient is maintained on Monday//Monday schedule and receiving hemodialysis currently. Patient has NG tube placed and will continue with nothing by mouth and patient also maintained on Cleviprex for blood pressure control. Continue with IV Protonix twice daily. Patient continues on IV antibiotics with infectious disease following. Patient continues with weakness and will have PT/OT work with the patient once more stable. Prognosis remains guarded.
[2020-10-30] MEDS: SEVELAMER 800 MG TAB PO SCH ×3 (04:17→16:03)
[2020-10-30 05:10] LABS: Basophils % (A) 0 %; Eosinophils # (A) 0.2 k/uL (0-0.7); Eosinophils % (A) 3 %; HCT 26.7 % (39.0-53.0); HGB 9.1 gm/dL (13.0-17.5); Lymphocytes # (A) 0.6 k/uL (1.0-4.8); Lymphocytes % (A) 9 %; MCH 32.9 pg (25.0-35.0); MCV 96.7 fL (80.0-100.0); Mean Platelet Volume 9.2; Monocytes # (A) 0.3 k/uL (0-1.0); Monocytes % (A) 4 %; Neutrophils % (A) 83 %; Platelet Count 101 k/uL (150-450); RBC 2.76 m/uL (4.30-5.90); RDW 15.1 % (11.5-15.5); WBC 7.2 k/uL (3.8-10.6)
[2020-10-30 05:37] LABS: Albumin 2.6 g/dL (3.5-5.0); Calcium 8.7 mg/dL (8.4-10.2); Potassium 3.1 mmol/L (3.5-5.1); Total Bilirubin 0.8 mg/dL (0.2-1.3)
[2020-10-30] MEDS ORDERED: POTASSIUM CHLORIDE 20 MEQ in WATER FOR INJECTION 1 100ML.BAG IVPB STA (05:55)
[2020-10-30] MEDS: LANTHANUM 1000 MG PO SCH ×3 (08:01→16:03)
[2020-10-30] MEDS: FOLIC ACID-VIT B COMPLEX-VIT C 1 CAP PO SCH (08:01)
[2020-10-30] MEDS: PATIROMER CALCIUM SORBITEX PO SCH (08:05)
[2020-10-30] MEDS: PANTOPRAZOLE 40 MG/10 ML VIAL IVP SCH (08:11)
[2020-10-30] MEDS: PIPERACILLIN-TAZOBACTAM 3.375 GM in SODIUM CHLORIDE 0.9% 100 ML IVPB SCH (08:11)
[2020-10-30] MEDS: PHYTONADIONE 5 MG in SODIUM CHLORIDE 0.9% 50 ML IVPB SCH (09:32)
[2020-10-30 11:27] LABS: HCT 23.9 % (39.0-53.0); HGB 8.4 gm/dL (13.0-17.5); MCH 33.4 pg (25.0-35.0); MCHC 35.1 g/dL (31.0-37.0); MCV 95.3 fL (80.0-100.0); Mean Platelet Volume 8.9; RBC 2.51 m/uL (4.30-5.90); RDW 15.6 % (11.5-15.5); WBC 6.5 k/uL (3.8-10.6)
--- NOTE | 2020-10-30 11:29 | P.PN ---
Progress Note - Text Progress Note Date: 10/30/20 The patient is resting comfortably in bed. He has had some bright red blood per nasogastric tube. His he will but has been 10.1, 9.3, 9.3. On exam her vital signs are stable. Abdomen soft. Duodenal ulcer. Patient scheduled for repeat EGD today.
--- NOTE | 2020-10-30 11:59 | P.PN ---
Subjective Progress Note Date: 10/30/20 Principal diagnosis: Acute GI bleed This is a 64-year-old white male patient with past medical history of end-stage renal disease on hemodialysis on Monday, and Monday schedule, hypertension, former smoker, chronic anemia on Aranesp, who presented to the emergency department on 10/24/2020 for evaluation of increased swelling of the left arm, which was present for a couple of weeks prior to hospitalization. Patient is a poor historian, he states that the dialysis fistula was placed several years ago. We saw the patient in consultation recently on 10/16/2020 wh en he was hospitalized with altered mental status, acute bilateral pneumonia with significant consolidation in the right upper lobe, with sepsis, uremia, and acute rhabdomyolysis after missing hemodialysis for a week. There was questionable papilledema involving the right optic nerve, with possibility of CVA at that time and patient was evaluated by both neurology and ophthalmology. Patient was treated with antibiotics, he was dialyzed, he clinically improved, and he was discharged to [facility] for continued PT and OT therapy on 10/22/2020 to complete an oral course of Augmentin 116235 mg twice daily for 7 more days. On 10/24/2020 patient was brought back to the hospital for reevaluation for the swelling of the left upper arm, denied any dyspnea or fevers, denied any cough, his admission chest x-ray showed a bilateral pneumonia that was improving compared his most recent chest x-ray prior to discharge from the hospital. There was a new small infiltrate in the right lung base compared the previous chest x-ray. Left upper extremity Doppler showed no evidence of DVT in the left arm. Patient was placed on a combination of azithromycin and Zosyn. He was receiving hemodialysis and had a hemodialysis session on 10/26/2020 with removal of 3 L of fluid, and again today on 10/27/2020. Today rapid response team was called to the bedside for concern of an episode of hematemesis, and an episode of dark tarry stools. Yesterday patient received a unit of packed red blood cells for a hemoglobin of 6.5, and this morning his hemoglobin was up to 8.2 and recheck in the afternoon came back at 7.5. Patient was transferred to the intensive care unit. Currently his blood pressure is 91/53, he is breathing comfortably, he denies any bony complaints, he is on room air with a pulse ox of 91-96%, he is awake and alert, oriented to self, and to place. He is afebrile, no complaints of chest discomfort. He was started on IV Protonix 40 mg twice daily, and GI service has been consulted and patient is nothing by mouth for possible EGD and colonoscopy tomorrow on 10/28/2020. On 10/28/2020 patient is seen in follow-up in intensive care unit, he is still having episodes of hematemesis, he has had 3 episodes overnight, last one this morning at 7 AM dark bloody emesis approximately 500 mL in the emesis basin. Abdomen is soft. And has remained nothing by mouth tonight, EGD is planned for this morning, last night he received additional unit of blood for hemoglobin of 6.8, this morning's hemoglobin is 8.1, white count is 6.3, his had no fever or chills, he has had no difficulty breathing, no cough, no chest pain. Sinus mechanism, tachycardic with a rate of 108 BPM, room air pulse ox is 95%, a bit hypertensive this morning, with a blood pressure in the 160s to 180 systolic, and 80s to 90s diastolic. His chest x-ray today shows a stable chest, with the right upper lobe density, and left lower lobe density unchanged. Clinically patient is not complaining of any pulmonary complaints. His blood cultures has remained negative. His electrolytes are unremarkable today, his BUN is 50, and creatinine is 5.56. On 10/29/2020 patient is seen in follow-up in intensive care unit, he is resting in bed, NG tube was inserted yesterday, and there has been 700 mL of dark maroon colored emesis, gastric drainage in the last 24 hours in addition to several episodes of hematemesis yesterday prior to NG tube insertion. Patient is awake and alert, he is oriented 3, he appears to be in no acute distress other than having the sore throat and discomfort related to NG tube placement. Remains on Cleviprex at 3 mg per hour, blood pressure is currently better controlled, patient has not been able to take any of his oral antihypertensives related to active GI bleeding for last 24 hours. He remains nothing by mouth, abdomen is soft, nontender, no nausea. No cough, no chest discomfort. His had no fever or chills, he is in sinus mechanism with a rate of 91 BPM, he is status post transfusion with 4 units of packed red blood cells 2 of them were transfused ye sterday, today's hemoglobin is 9.6. Recent blood work has been reviewed showing potassium 3.9, BUN 63 creatinine 6.91 and patient is having another hemodialysis treatment today. We stopped his antibiotics yesterday is his aspiration pneumonia has cleared up, and patient was having no significant pulmonary symptoms, no fever or chills, ID service is following and has restarted the patient on Zosyn. Cultures remained negative. No leukocytosis on his blood work. Yesterday general surgery was consulted for possibility of surgical intervention in regards to a large gastric ulcer with a large adherent clot. Currently hemodynamically patient has remained stable not requiring any vasopressor support. He is being monitored for any further bleeding, surgery is following. On 10/30/2000 patient seen in follow-up in the intensive care unit, he is resting comfortably in bed, he is on room air, with a pulse ox of 97%, blood pressure is stable, he still remains on Cleviprex infusion because of his nothing by mouth status, Cleviprex is currently infusing at 12 mg per hour, current blood pressure is 135/65, he is in sinus rhythm with a rate of 101 BPM, he is breathing comfortably, lung sounds reveal some minimal crackles at bilateral bases, no rhonchi or wheezing, no cough or phlegm production. NG tube remains in place as been 700 mL of dark red output overnight, he is more bright red this morning. Abdomen is soft, nontender, no nausea or vomiting, no bloody bowel movements per the patient. I work has been reviewed showing hemoglobin of 9.1, platelet count is 101, potassium 3.1, the rest of electrolytes are within normal limits, BUN is 40, creatinine is 6.06, patient had hemodialysis session yesterday would removal of 2 L of fluid. Currently oxygenation is stable, no swelling noted in bilateral lower extremities no abdominal distention, no signs of fluid overload. Patient is currently receiving 0.9 with secondary to 20 ML per hour. he remains on Zosyn per ID service recommendation is for recent history of aspiration pneumonia. Is on IV Protonix 40 mg twice daily, GI service is following, and the plan is for repeat EGD today Objective - Vital Signs Vital signs: Vital Signs Temp 97.7 F 10/30/20 04:00 Pulse 93 10/30/20 07:00 Resp 17 10/30/20 07:00 BP 129/70 10/30/20 07:00 Pulse Ox 93 L 10/30/20 07:00 Intake & Output 10/29/20 10/30/20 10/30/20 18:59 06:59 18:59 Intake Total 578 440 70 Output Total 1999 1200 700 Balance -4098 -760 -444 Weight 61.2 kg Intake: IV 310 240 20 0.9 NS 110 240 20 Desmopressin Acetate 20 50 mcg In Sodium Chloride 0. 9% 50 ml @ 200 mls/hr IVPB ONCE ONE Rx#: [id number] Phytonadione 5 mg In 50 Sodium Chloride 0.9% 50 ml @ 100 mls/hr IVPB DAILY [facility] Rx#:[id number] Piperacillin-Tazobactam 3 100 .375 gm In Sodium Chloride 0.9% 100 ml @ 25 mls/hr IVPB Q12H [facility] Rx# :[id number] Intake, IV Titration 68 200 50 Amount Clevidipine Butyrate 25 68 200 50 mg In Empty Bag 1 bag @ 1 MG/HR 2 mls/hr IV .Q24H [facility] Rx#:[id number] Oral 200 Output: Gastric Drainage 1200 700 Urine 0 0 0 Hemodialysis 1999 - Exam GENERAL EXAM: Alert, very pleasant, 64-year-old white male, breathing comfortably, with a pulse ox of 91-97%, comfortable in no apparent distress. Patient has a NG-tube in place HEAD: Normocephalic/atraumatic. EYES: Normal reaction of pupils, equal size. Conjunctiva pink, sclera white. NOSE: Clear with pink turbinates. NG tube in place to low intermittent suction, with suction canister being full of dark maroonish-colored emesis THROAT: No erythema or exudates. NECK: No masses, no JVD, no thyroid enlargement, no adenopathy. CHEST: No chest wall deformity. Symmetrical expansion. LUNGS: Equal air entry with no crackles, wheeze, rhonchi or dullness. CVS: Regular rate and rhythm, normal S1 and S2, no gallops, no murmurs, no rubs ABDOMEN: Soft, nontender. No hepatosplenomegaly, normal bowel sounds, no guarding or rigidity. EXTREMITIES: No clubbing, no edema, no cyanosis, 2+ pulses and upper and lower extremities. Left upper arm fistula present, and there is swelling involving the left upper arm MUSCULOSKELETAL: Muscle strength and tone normal. SPINE: No scoliosis or deformity SKIN: No rashes CENTRAL NERVOUS SYSTEM: Alert and oriented -3. No focal deficits, tone is normal in all 4 extremities. PSYCHIATRIC: Alert and oriented -3. Appropriate affect. Intact judgment and insight. - Labs CBC & Chem 7: 10/30/20 11:07 10/30/20 04:28 Labs: Abnormal Lab Results - Last 24 Hours (Table) 10/29/20 10/29/20 10/30/20 Range/Units 10:35 17:34 00:29 RBC 3.15 L 2.75 L (4.30-5.90) m/uL Hgb 10.3 L 9.1 L (13.0-17.5) gm/dL Hct 30.6 L 26.3 L (39.0-53.0) % Plt Count 117 L 101 L (150-450) k/uL Lymphocytes # (1.0-4.8) k/uL Sodium 136 L (137-145) mmol/L Potassium 3.4 L (3.5-5.1) mmol/L BUN 31 H (9-20) mg/dL Creatinine 4.01 H (0.66-1.25) mg/dL Total Protein 5.3 L (6.3-8.2) g/dL Albumin 2.8 L (3.5-5.0) g/dL 10/30/20 10/30/20 Range/Units 04:28 04:28 RBC 2.76 L (4.30-5.90) m/uL Hgb 9.1 L (13.0-17.5) gm/dL Hct 26.7 L (39.0-53.0) % Plt Count 101 L (150-450) k/uL Lymphocytes # 0.6 L (1.0-4.8) k/uL Sodium (137-145) mmol/L Potassium 3.1 L (3.5-5.1) mmol/L BUN 40 H (9-20) mg/dL Creatinine 6.06 H (0.66-1.25) mg/dL Total Protein 5.0 L (6.3-8.2) g/dL Albumin 2.6 L (3.5-5.0) g/dL Microbiology - Last 24 Hours (Table) 10/24/20 19:43 Blood Culture - Preliminary Blood No Growth after 120 hours 10/24/20 19:43 Blood Culture - Preliminary Blood No Growth after 120 hours Assessment and Plan Plan: Assessment: #1. Acute GI bleeding, acute on chronic GI blood loss anemia. Patient had an episode of hematemesis and dark tarry stools, patient has received 4 units of packed red blood cells thus far, this morning his hemoglobin is 9.1 #2. A large gastric ulcer with large adherent clot in the antrum of the stomach, occluding the entire lumen, seen on the EGD today on 10/28/2020, surgical consultation has been placed in pending at this time. Small hiatal hernia #3. Left upper arm swelling, at the site of hemodialysis AV fistula, Doppler ultrasound showed no evidence of DVT, and CT scan of the left arm showed extensive subcutaneous emphysema #4. Recent hospitalization for acute metabolic encephalopathy, bilateral pneumonia possibly related to aspiration, sepsis, possible papilledema #5. End-stage renal disease on hemodialysis on Monday schedule #6. Hypertension #7. Former smoker #8. Papilledema involving the right optic nerve during most recent admission. CT of the head and CTA head and neck were unremarkable, MRI of the brain with no evidence of recent infarct #9. General medical debility Plan: Continue serial H&H's Today's labs have been reviewed, this was hemoglobin is 9.1 Ring significant dark maroon output from the NG tube, 700 mL overnight which is more red and grossly bloody today Continues on PPI therapy Patient is nothing by mouth GI Service is following and recommending repeat EGD today Otherwise vital signs have been stable, patient is not requiring any vasopressor support Today's labs have been reviewed Continues on antibiotics, he however his had no fever or chills His aspiration pneumonia cleared up on most recent chest x-ray We'll continue close monitoring in the intensive care unit I performed a history & physical examination of the patient and discussed their management with my nurse practitioner, Acacia Guzman. I reviewed the nurse practitioner's note and agree with the documented findings and plan of care. Lung sounds are positive for diminished breath sounds throughout the lung hurtado. The findings and the impression was discussed with the patient. I attest to the documentation by the nurse practitioner. Time with Patient: Less than 30
--- NOTE | 2020-10-30 12:39 | PN ---
PROGRESS NOTE Patient is seen for followup for end-stage renal disease. He is maintained on a Monday, , Monday schedule. The patient was admitted to the hospital with significant swelling at his AV fistula; however, no plans for intervention, as patient's primary vascular surgeon is out of [place], Dr. Galvan . In the meantime, patient developed acute GI bleed. His initial EGD showed large blood clot in the stomach, and therefore no further intervention could be done. Surgery was consulted and there are plans to repeat EGD today. Hemoglobin this morning is stable at 9.1 g/dL. However, repeat hemoglobin did drop to 8.4. PHYSICAL EXAMINATION: On examination today, patient is lying in bed, comfortable, not in any acute distress. Blood pressure 129/66, heart rate 97 per minute. He is afebrile. EXAMINATION OF THE HEART: S1 and S2. EXAMINATION OF LUNGS: Bilateral breath sounds are heard. ABDOMEN: Soft, nontender. LOWER EXTREMITIES: Examination of lower extremities shows no evidence of edema. 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 LABS: Labs show hemoglobin 8.4, sodium 137, potassium 3.1, BUN 40, creatinine 6.0. ASSESSMENT: 1. End-stage renal disease, on hemodialysis on a Monday, , Monday schedule. We will plan for dialysis tomorrow. 2. Swelling in the left arm and at the AV fistula with an aneurysm formation. No plans for intervention at this point. We have been able to dialyze the patient using 17- gauge needles. His vascular surgeon is out of [place]. 3. Acute gastrointestinal bleed, status post DDAVP and packed RBCs transfusion. Scheduled for repeat endoscopy today. Initial EGD showed large blood clot in the stomach. 4. Hypokalemia, status post replacement. 5. Anemia secondary to acute blood loss. 6. Chronic kidney disease mineral bone disorder. 7. Hypertension. All oral antihypertensive medications are on hold. Patient is maintained on Cleviprex. PLAN: Hemodialysis in a.m. Replace potassium. Continue to use 17-gauge needles. MMODL / IJN: [id number] /
[2020-10-30] MEDS ORDERED: SODIUM CHLORIDE 0.9% 500 ML 500 ML IV ONE (12:48)
[2020-10-30] MEDS ORDERED: PROPOFOL 10 MG/ML 20 ML VIAL IV ONE (12:49)
[2020-10-30 12:55] LABS: Platelet Count 96 k/uL (150-450)
--- NOTE | 2020-10-30 13:01 | P.PCN ---
Date of Procedure: 10/30/20 Procedure(s) Performed: BRIEF HISTORY: Patient is a 64-year-old, pleasant, white male with history of end-stage renal disease on hemodialysis admitted hospital with acute upper GI bleed. He received 4 units of PRBC transition. An upper endoscopy done 2 days ago that revealed a large adherent clot occupying the entire antrum of the stomach.NG tube was placed and he was started on Protonix 40 mg twice a day. Surgery was consulted. In the last 2 days bleeding has slowed down significantly. Hemoglobin remains stable. He is scheduled for a second look upper endoscopy to evaluate further and identify the source of bleeding PROCEDURE PERFORMED: Esophagogastroduodenoscopy. PREOPERATIVE DIAGNOSIS: Acute upper GI bleed with recent upper endoscopy 2 days ago that showed large clot in the antrum of the stomach. IV sedation per anesthesia. PROCEDURE: After informed consent was obtained, the patient was brought into the endoscopy unit. IV sedation was administered by Anesthesia under continuous monitoring. Initially the Olympus GIF-140 video endoscope was inserted into the mouth. Esophagus intubated without any difficulty. It was gradually advanced into the stomach and once again there was a large clot prevented antrum of the stomach. The clot was adherent and could not be dislodged. Despite multiple attempts I was not able to advance the scope into the pylorus. The body, cardia and the fundus appeared normal. The scope was then withdrawn into the esophagus. The GE junction was located at 39 cm from the incisors. The esophagus appeared normal. There were no erosions or ulcerations seen and the patient tolerated the procedure well. IMPRESSION: 1. Large adherent clot occupied the entire antrum of the stomach and this was of bleeding could not be identified. . RECOMMENDATIONS: The findings of this examination were discussed with the patient . Findings were discussed with Dr. Vidal. At this time NG tube will be reinserted and will continue to monitor him closely.. Continue Protonix 40 mg twice daily and monitor CBC daily
[2020-10-30 14:54] VITALS: BMI 21.1
--- NOTE | 2020-10-30 17:51 | P.DS ---
Providers Date of admission: 10/24/20 19:26 Expected date of discharge: 10/30/20 Attending physician: Shawn Amaya Consults: 10/24/20 19:25 Consult Physician Routine Consulting Provider: Wander Fernando Consult Reason/Comments: crf Do you want consulting provider notified?: Yes 10/24/20 19:54 Consult Physician Routine Consulting Provider: Sabine Brooks Consult Reason/Comments: pneumonia Do you want consulting provider notified?: Yes 10/27/20 09:08 Consult Physician Urgent Consulting Provider: Mariela Mcdaniel Consult Reason/Comments: possible GI bleed, dark tarry stools/ low hemoglobin Do you want consulting provider notified?: Yes 10/27/20 14:18 Consult Physician Stat Consulting Provider: Jaxson Brasher Consult Reason/Comments: ICU management, GI bleeding Do you want consulting provider notified?: Yes 10/28/20 10:01 Consult Physician Stat Consulting Provider: Nj Vidal Consult Reason/Comments: Evacuate large clot Do you want consulting provider notified?: Already Contacted Primary care physician: Stated None Hospital Course: Final Diagnosis Left arm fistula swelling and dilatation with inability to perform dialysis acute upper GI bleed as noted on EGD with large adherent clot in the antrum of the stomach occluding the entire lumen with inability to advance in the duodenum with a small hiatal hernia, possible bleeding duodenal ulcer Acute blood loss anemia possibly secondary to GI bleed and possible anemia of chronic disease Possible right lower lobe pneumonia History of recent bilateral pneumonia of right more than left including the right upper lobe history of chronic kidney disease, end-stage renal disease Recent change in mental status acute metabolic encephalopathy secondary to uremia 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 Total time taken is greater than 35 minutes. Hospital course This is a 64-year-old male who was recently admitted with significant swelling noted to the left arm fistula and is being closely monitored. Patient is maintained on hemodialysis with a left arm fistula and nursing staff at the dialysis center were uncomfortable with accessing and sent here for further evaluation. Nephrology consulted along with vascular surgery and currently receiving hemodialysis today at the bedside. Patient continues to have significant left arm swelling and ordering CT of the left arm and report is pending. 10/27/2020 Patient is seen and evaluated in follow-up this morning currently receiving hemodialysis as he is maintained on Monday//Monday schedule and was admitted with overload and nephrology following closely. Vascular surgery also following as patient has continued left upper extremity swelling and CT noted to have a dilated dialysis catheter and surrounding edema in the subcutaneous area and dialysis catheter has been functioning and easily cannulated per dialysis nurse. Patient denies any left upper arm pain but is having some abdominal discomfort associated with nausea. States he did have a bowel movement today that was black and tarry and loose and have consulted GI. A hemoglobin was found to be 6.5 yesterday and was given 1 unit of PRBC and hemoglobin today is 8.2. Plans are for possible upper endoscopy tomorrow. Patient is maintained on IV Protonix twice daily and will continue at this time. 10/28/2020 Patient is seen in follow-up continues to be in the ICU being closely monitored and continues to have bleeding noted. Patient states that he had another episode of dark tarry stools and multiple episodes of hematemesis. Patient's repeat hemoglobin after 1 unit of PRBCs went up to 7.5 and continue to have bloody emesis and hemoglobin repeat was found to be 6.8 and given another unit and hemoglobin this morning is 8.1. Patient is scheduled to receive 2 more units of PRBCs. GI following closely and patient underwent EGD showing a large adherent clot in the antrum of the stomach occluding the entire lumen with inability to advance the scope into the duodenum but a small hiatal hernia. Patient is maintained on IV Protonix twice daily and will continue. Patient is currently nothing by mouth and takes multiple blood pressure medications and blood pressures have been elevated and patient is being started on Cleviprex for tighter hypertension control. No plans for dialysis today. Surgery has been consulted with discussion of possible clot evacuation and is closely monitoring and transfusing as necessary. To continue with hemoglobin every 6 hours. 10/29/2020 Patient is seen and evaluated in follow up this morning and is being closely monitored in the ICU with multiple medical consultations following including GI, nephrology, commercial loan closer, and general surgery. Patient continues with NG tube with coffee ground drainage noted of approximately 350 output since last night. Patient is to receive dialysis today. Patient remains NPO. Hemoglobin today status post an additional 2 units of PRBC received yesterday is 9.6 and will continue with H&H every six hours for close monitoring. WBC is 9.0 and patient is afebrile. Infectious disease following as well and patient continues on IV zosyn for possible aspiration pneumonia. Potassium 3.4 and will replace per protocol. Left upper extremity continues with swelling in the hand and forearm. Dialysis shunt easily cannulated by hemodialysis nurse this morning. 10/30/2020 Patient continues to be in the ICU being closely monitored and underwent repeat EGD with GI and continues to have an acute GI bleed with an adherent clot noted without successful removal. Patient is requiring transfer to tertiary [facility] center and is accepted at [facility] for further treatment and evaluation with possible surgical intervention. Patient has NG tube with bloody drainage noted and continues to be NPO. Patient continues on Cleviprex for blood pressure control. Hemoglobin is 8.4 currently and will continue to monitor every 6 hours. Transfuse if 7 or less. ICU is aware of the transfer and awaiting a call back for a bed assignment. Gen: This is a 64-year-old male awake, alert and oriented 2-3, thin built. Temp is 97.5 F, pulse is 100, respirations are 15, blood pressure is 152/75, oxygen saturation is 92% on room air. HEENT: Head is atraumatic, normocephalic. Pupils equal, round. Sclerae is anic teric. NG tube noted NECK: Supple. No JVD. No lymphadenopathy. No thyromegaly. LUNGS: diminished breath sounds bilaterally with some scattered rhonchi noted. No intercostal retractions. HEART: S1, S2 muffled ABDOMEN: Soft. Tenderness of the left and right lower quadrants on palpation. Non-distended. Bowel sounds are present. No masses. EXTREMITIES: No pedal edema. No calf tenderness. left upper extremity swelling noted and dialysis fistula noted with a thrill, swelling continues of the left hand and forearm and elevated on a pillow on exam NEUROLOGICAL: Patient is awake, alert and oriented x2-3. no focal deficits noted. Diffusely weak Please refer to medication reconciliation sheet for a list of medications. Patient Condition at Discharge: Stable Plan - Discharge Summary Discharge Rx Participant: No New Discharge Prescriptions: No Action amLODIPine [Norvasc] 10 mg PO DAILY@0900 Patiromer Calcium Sorbitex [Veltassa] 8.4 gm PO DAILY@0900 cloNIDine HCL [Catapres] 0.3 mg PO TID@0600,1400,2200 Carvedilol [Coreg] 25 mg PO BID@0900,1700 Prostat Sugar Free Liquid Protein 1 can PO BID@0900,1700 Amoxicillin/Potassium Clav [Augmentin 500-125 Tablet] 1 tab PO BID@0900,2100 Sevelamer [Renvela] 4,000 mg PO TID@0700,1100,1800 Doxazosin [Cardura] 2 mg PO BID@0900,1700 Lanthanum Carbonate [Lanthanum Carbonate Chew] 1,000 mg PO TID@0800,1200,1700 Loperamide [Imodium] 2 mg PO QID PRN cap PRN Reason: Diarrhea Saba-Dwight (G-Gvvisei-C-Folic-Acid) 1 tab PO DAILY@0900 Aspirin 81 mg PO DAILY@0900 Lacosamide [Vimpat] 50 mg PO TID@0900,1300,2100 Omeprazole 20 mg PO DAILY@0600 Discharge Medication List amLODIPine [Norvasc] 10 mg PO DAILY@0900 02/20/15 [History] Carvedilol [Coreg] 25 mg PO BID@0900,1700 10/15/20 [History] Doxazosin [Cardura] 2 mg PO BID@0900,1700 10/15/20 [History] Lanthanum Carbonate [Lanthanum Carbonate Chew] 1,000 mg PO TID@0800,1200,1700 10/15/20 [History] Patiromer Calcium Sorbitex [Veltassa] 8.4 gm PO DAILY@0900 10/15/20 [History] cloNIDine HCL [Catapres] 0.3 mg PO TID@0600,1400,2200 10/15/20 [History] Loperamide [Imodium] 2 mg PO QID PRN cap 10/22/20 [Rx] Amoxicillin/Potassium Clav [Augmentin 500-125 Tablet] 1 tab PO BID@0900,2100 10/24/20 [History] Aspirin 81 mg PO DAILY@0900 10/24/20 [History] Lacosamide [Vimpat] 50 mg PO TID@0900,1300,2100 10/24/20 [History] Omeprazole 20 mg PO DAILY@0600 10/24/20 [History] Prostat Sugar Free Liquid Protein 1 can PO BID@0900,1700 10/24/20 [History] Saba-Dwight (A-Kntrofb-A-Folic-Acid) 1 tab PO DAILY@0900 10/24/20 [History] Sevelamer [Renvela] 4,000 mg PO TID@0700,1100,1800 10/24/20 [History] Follow up Appointment(s)/Referral(s): None,Stated [Primary Care Provider] - 1-2 days
[2020-10-30 18:38] VITALS: BP 167/82; PULSE 97; RESP 15; TEMP 98
--- NOTE | 2020-10-30 23:48 | P.PN ---
Progress Note - Text Progress Note Date: 10/30/20 REASON FOR FOLLOWUP: Aspiration pneumonia. INTERVAL HISTORY: The patient remains to be afebrile. The patient still has the NG and it is draining blood-stained secretions. Patient is complaining feeling hungry and wants to eat, no chest pain shortness of minimal cough no abdominal pain patient is status post a repeat EGD this morning with evidence of a clot in the continuous bleeding. PHYSICAL EXAMINATION: Blood pressure is 130/80 with a pulse of 80, temperature 97.2. He is 97% on room air. GENERAL DESCRIPTION: General description is a middle-aged male lying in bed in no distress. RESPIRATORY SYSTEM: Unlabored breathing. Decreased breath sounds in the base. No wheeze. HEART: S1, S2. Regular rate and rhythm. ABDOMEN: Soft. No tenderness. LABS: Reviewed. DIAGNOSTIC IMPRESSION AND PLAN: Patient with aspiration pneumonia, admitted to hospital with swelling to the left arm,now with evidence of acute GI bleed, for the patient did have an EGD x2 with persistent bleeding, surgery is on the case patient is covered with a Zosyn for Pneumonia continue along with supportive care
== END 2020-10-31 06:17 | disposition other institution (70) | DRG 314 ==
LOC: EC 14:54 → 4SSUR 19:26 → 2SICU 10-27 13:41
PROVIDERS: ADMIT Hospitalist; ATTEND Hospitalist
PROC: 30233N1 Transfusion of Nonautologous Red Blood Cells into Peripheral Vein, Percutaneous Approach (ICD-10-PCS; 2020-10-24)
PROC: 5A1D70Z Performance of Urinary Filtration, Intermittent, Less than 6 Hours Per Day (ICD-10-PCS; 2020-10-26)
PROC: 06HM33Z Insertion of Infusion Device into Right Femoral Vein, Percutaneous Approach (ICD-10-PCS; 2020-10-27)
PROC: B54BZZA Ultrasonography of Right Lower Extremity Veins, Guidance (ICD-10-PCS; 2020-10-27)
PROC: 5A1D70Z Performance of Urinary Filtration, Intermittent, Less than 6 Hours Per Day (ICD-10-PCS; 2020-10-27)
PROC: 0DJ08ZZ Inspection of Upper Intestinal Tract, Via Natural or Artificial Opening Endoscopic (ICD-10-PCS; principal; 2020-10-28 12:35)
PROC: 0DJ08ZZ Inspection of Upper Intestinal Tract, Via Natural or Artificial Opening Endoscopic (ICD-10-PCS; 2020-10-30)
PROC: 0D9770Z Drainage of Stomach, Pylorus with Drainage Device, Via Natural or Artificial Opening (ICD-10-PCS; 2020-10-30)
PROC: 5A1D70Z Performance of Urinary Filtration, Intermittent, Less than 6 Hours Per Day (ICD-10-PCS; 2020-10-30)
DX: T82.898A Other specified complication of vascular prosthetic devices, implants and grafts, initial encounter (principal); N18.6 End stage renal disease; K26.4 Chronic or unspecified duodenal ulcer with hemorrhage; J69.0 Pneumonitis due to inhalation of food and vomit; G93.41 Metabolic encephalopathy; D62 Acute posthemorrhagic anemia; E87.2 Acidosis; H47.10 Unspecified papilledema; I12.0 Hypertensive chronic kidney disease with stage 5 chronic kidney disease or end stage renal disease; N17.9 Acute kidney failure, unspecified; M62.82 Rhabdomyolysis; G93.49 Other encephalopathy; R22.32 Localized swelling, mass and lump, left upper limb; K44.9 Diaphragmatic hernia without obstruction or gangrene; Z20.822 Contact with and (suspected) exposure to COVID-19; D63.1 Anemia in chronic kidney disease; E87.5 Hyperkalemia; E87.6 Hypokalemia; E87.70 Fluid overload, unspecified; K21.9 Gastro-esophageal reflux disease without esophagitis; M89.8X9 Other specified disorders of bone, unspecified site; M89.9 Disorder of bone, unspecified; Z99.2 Dependence on renal dialysis; Z88.2 Allergy status to sulfonamides; Z79.82 Long term (current) use of aspirin; Z79.899 Other long term (current) drug therapy; Z87.01 Personal history of pneumonia (recurrent); Z86.73 Personal history of transient ischemic attack (TIA), and cerebral infarction without residual deficits; Z87.891 Personal history of nicotine dependence
CPT/HCPCS: 36415; 43235; 71045; 71046; 74018; 80048; 80053; 83540; 83550; 83735; 84100; 84145; 85025; 85027; 85610; 85730; 86140; 86850; 86900; 86901; 86920; 87040; 87635; 90935; 99285

== ENCOUNTER 2020-11-28 18:07 | Emergency (ER) | payer MEDICARE, OTHER ==
[2020-11-28 18:12] VITALS: TEMP 98.1
[2020-11-28 18:50] LABS: Calcium 8.3 mg/dL (8.4-10.2); Magnesium 2.2 mg/dL (1.6-2.3); Potassium 3.3 mmol/L (3.5-5.1)
[2020-11-28 18:56] LABS: Anisocytosis Slight; Basophils % (A) 1 %; Eosinophils # (A) 0.2 k/uL (0-0.7); Eosinophils % (A) 8 %; HCT 23.9 % (39.0-53.0); HGB 7.9 gm/dL (13.0-17.5); Lymphocytes # (A) 0.5 k/uL (1.0-4.8); Lymphocytes % (A) 18 %; MCH 31.2 pg (25.0-35.0); MCV 94.5 fL (80.0-100.0); Macrocytosis Slight; Mean Platelet Volume 8.8; Monocytes # (A) 0.2 k/uL (0-1.0); Monocytes % (A) 8 %; Neutrophils # (A) 1.7 k/uL (1.3-7.7); Neutrophils % (A) 64 %; RBC 2.53 m/uL (4.30-5.90); RDW 18.9 % (11.5-15.5); WBC 2.6 k/uL (3.8-10.6)
[2020-11-28 18:57] LABS: Platelet Count 169 k/uL (150-450)
--- NOTE | 2020-11-28 19:33 | ED ---
General Adult HPI - General Chief complaint: Recheck/Abnormal Lab/Rx Stated complaint: abn labs Time Seen by Provider: 11/28/20 18:14 Source: patient, RN notes reviewed, old records reviewed Mode of arrival: ambulatory Limitations: no limitations - History of Present Illness Initial comments: I evaluated the patient when he was placed in a room. Patient is a 65-year-old male with past medical history remarkable for ESRD on hemodialysis, prior episode of GI bleed one month ago, myelodysplastic syndrome status post chemotherapy presents emergency department after being sent in by his dialysis center for possible anemia. Patient does run anemic at baseline, and currently denies any symptoms following dialysis including lightheadedness, shortness of breath, chest pain, weakness. Patient states he feels fine otherwise. Denies any signs of GI bleed, including hematemesis, nausea, melanotic or hematochezia. Patient states that previously she was diagnosed with a healing abdominal ulcer he believes and was having episodes of hematemesis which has not recurred since that admission. He otherwise has no acute complaints at this time. He is u ncertain what is causing the anemia but states he is typically anemic and has a history of it when he goes to dialysis. He has not missed any runs of dialysis. Obtained a full run at dialysis. He denies any fevers, chills, cough, sick contacts, chest pain. Denies any diarrhea or constipation. His no other acute point at this time. He does state that he has had a chronic left upper extremity swelling for which she is seen vascular surgery this week where he has his AV fistula. He is still receiving dialysis out of the fistula. He denies any weakness or numbness to the left upper extremity. Has been relatively unchanged over the last 1-2 weeks. - Related Data Home Medications Medication Instructions Recorded Confirmed amLODIPine [Norvasc] 10 mg PO DAILY@0900 02/20/15 10/24/20 Carvedilol [Coreg] 25 mg PO BID@0900,1700 10/15/20 10/24/20 Doxazosin [Cardura] 2 mg PO BID@0900,1700 10/15/20 10/24/20 Lanthanum Carbonate [Lanthanum 1,000 mg PO TID@0800,1200,1700 10/15/20 10/24/20 Carbonate Chew] Patiromer Calcium Sorbitex 8.4 gm PO DAILY@0900 10/15/20 10/24/20 [Veltassa] cloNIDine HCL [Catapres] 0.3 mg PO TID@0600,1400,2200 10/15/20 10/24/20 Amoxicillin/Potassium Clav 1 tab PO BID@0900,2100 10/24/20 10/24/20 [Augmentin 500-125 Tablet] Aspirin 81 mg PO DAILY@0900 10/24/20 10/24/20 Lacosamide [Vimpat] 50 mg PO TID@0900,1300,2100 10/24/20 10/24/20 Omeprazole 20 mg PO DAILY@0600 10/24/20 10/24/20 Prostat Sugar Free Liquid Protein 1 can PO BID@0900,1700 10/24/20 10/24/20 Saba-Dwight (Z-Oazvsrg-O-Folic-Acid) 1 tab PO DAILY@0900 10/24/20 10/24/20 Sevelamer [Renvela] 4,000 mg PO TID@0700,1100,1800 10/24/20 10/24/20 Previous Rx's Medication Instructions Recorded Loperamide [Imodium] 2 mg PO QID PRN cap 10/22/20 Allergies Allergy/AdvReac Type Severity Reaction Status Date / Time Sulfa (Sulfonamide Allergy Rash/Hives Verified 11/28/20 18:12 Antibiotics) Review of Systems ROS Statement: Those systems with pertinent positive or pertinent negative responses have been documented in the HPI. Review of Systems: CONST: Denies fever EYES: Denies blurry vision ENT: Denies nasal congestion C/V: Denies Chest pain RESP: Denies shortness of breath GI: Denies abdominal pain : Denies dysuria SKIN: Denies rash. MSK: Denies joint pain. NEURO: Denies headache ROS Other: All systems not noted in ROS Statement are negative. Past Medical History Past Medical History: Hypertension Additional Past Medical History / Comment(s): DIALYSIS T,TH,SA; pt. is a poor historian. History of Any Multi-Drug Resistant Organisms: None Reported Additional Past Surgical History / Comment(s): FISTULA, rigth side kidney removal. Past Psychological History: No Psychological Hx Reported Smoking Status: Former smoker, Unknown if ever smoked Past Alcohol Use History: None Reported Past Drug Use History: None Reported - Past Family History Mother Family Medical History: Dementia, Hypertension General Exam - General Exam Comments Initial Comments: General: Appears in no acute distress. HEAD: Normal with no signs of head trauma. EYES: PERRLA, EOMI, conjunctiva normal, no discharge. ENT: Hearing grossly intact, normal oropharynx. RESPIRATORY: Clear breath sounds bilaterally. No wheezes, rales, or rhonchi. C/V: Regular rate and rhythm. S1 and S2 auscultated, peripheral pulses 2+ and intact throughout. Patient does have nonpitting edema of the left upper extremity which per patient has been worsening over the last 2 weeks and was seen by vascular surgery when he was in the hospital previously and has an appointment with them this week to evaluate his AV fistula which is still functioning fine. Patient has a left upper extremity AV fistula with palpable thrill and audible bruit. ABD: Abd is soft, nontender, nondistended EXT: Normal range of motion, no obvious deformity SKIN: No rashes or lesions observed on exposed skin. NEURO: Alert and oriented x 4. Cranial nerves II-XII intact. No focal sensory or strength deficits. Limitations: no limitations Course Vital Signs 11/28/20 11/28/20 18:10 19:45 Temperature 98.1 F Pulse Rate 71 66 Respiratory 20 16 Rate Blood Pressure 142/66 138/76 O2 Sat by Pulse 99 100 Oximetry Medical Decision Making - Medical Decision Making Based on patient's presentation and physical exam, I'm concerned for acute anemia in this patient. He has a history of anemia. He is not symptomatic at this time. He has no signs of GI bleed with a history of it. His no symptoms or reoccurrence of GI bleeding his no concern for that this time either. Therefore we will just obtain basic laboratory studies including a CBC and BMP. He received his full run of dialysis and and do not anticipate abnormal labs. He was in agreement this plan. Patient's lavatory studies revealed a normocytic anemia with hemoglobin 7.9, and on review of his prior hemoglobins he typically runs between 7-10. This appears to be his baseline at this time. His no signs of acute bleed at this time. Patient also has a elevated BUN/creatinine setting of ESRD. Patient is mildly hypo-kalemic at 3.3. The remainder of his labs are relatively unremarkable. At this time, as the patient is not having any signs or symptoms of GI bleeding, is not having symptomatically anemia, is having a chronic hemoglobin level within range of his chronic anemia as well as chronic disease, do believe that he is stable for discharge home with close follow-up. He was in agreement with this plan. He will obtain his normally scheduled dialysis appointment on Monday. He has follow-up with vascular surgery this week as well. I instruc kirsten him to return if he has any signs of GI bleed, lightheadedness, chest pain, shortness of breath. He was in agreement this plan. I instructed the patient to follow up with their PCP in the next 3 days. I explained that the patient should return to the emergency department if they e xperience any worsening symptoms. Strict return precautions were discussed with the patient. The patient expressed understanding of these instructions. I answered all questions that the patient had. The patient was discharged home in good condition with their prescriptions and follow up information. - Lab Data Result diagrams: 11/28/20 18:29 11/28/20 18:30 Lab Results 11/28/20 11/28/20 Range/Units 18:29 18:30 WBC 2.6 L (3.8-10.6) k/uL RBC 2.53 L (4.30-5.90) m/uL Hgb 7.9 L (13.0-17.5) gm/dL Hct 23.9 L (39.0-53.0) % MCV 94.5 (80.0-100.0) fL MCH 31.2 (25.0-35.0) pg MCHC 33.0 (31.0-37.0) g/dL RDW 18.9 H (11.5-15.5) % Plt Count 169 D (150-450) k/uL MPV 8.8 Neutrophils % 64 % Lymphocytes % 18 % Monocytes % 8 % Eosinophils % 8 % Basophils % 1 % Neutrophils # 1.7 (1.3-7.7) k/uL Lymphocytes # 0.5 L (1.0-4.8) k/uL Monocytes # 0.2 (0-1.0) k/uL Eosinophils # 0.2 (0-0.7) k/uL Basophils # 0.0 (0-0.2) k/uL Anisocytosis Slight Macrocytosis Slight Sodium 138 (137-145) mmol/L Potassium 3.3 L (3.5-5.1) mmol/L Chloride 97 L (98-107) mmol/L Carbon Dioxide 34 H (22-30) mmol/L Anion Gap 7 mmol/L BUN 22 H (9-20) mg/dL Creatinine 2.88 H (0.66-1.25) mg/dL Est GFR (CKD-EPI)AfAm 25 (>60 ml/min/1.73 sqM) Est GFR (CKD-EPI)NonAf 22 (>60 ml/min/1.73 sqM) Glucose 116 H (74-99) mg/dL Calcium 8.3 L (8.4-10.2) mg/dL Magnesium 2.2 (1.6-2.3) mg/dL Disposition Clinical Impression: ESRD (end stage renal disease) on dialysis, Chronic anemia Disposition: HOME SELF-CARE Condition: Good Instructions (If sedation given, give patient instructions): Anemia (ED) Is patient prescribed a controlled substance at d/c from ED?: No Referrals: Wander Fernando DO [Primary Care Provider] - 1-2 days
[2020-11-28 19:47] VITALS: BP 138/76; PULSE 66; RESP 16
== END 2020-11-28 19:44 | disposition home or self-care (01) ==
LOC: EC 18:07
DX: I12.0 Hypertensive chronic kidney disease with stage 5 chronic kidney disease or end stage renal disease (principal); N18.6 End stage renal disease; D50.0 Iron deficiency anemia secondary to blood loss (chronic); Z99.2 Dependence on renal dialysis; Z79.82 Long term (current) use of aspirin; Z79.899 Other long term (current) drug therapy; Z87.891 Personal history of nicotine dependence; Z88.2 Allergy status to sulfonamides; Z82.49 Family history of ischemic heart disease and other diseases of the circulatory system
CPT/HCPCS: 36415; 80048; 83735; 85025; 99284

== ENCOUNTER 2021-05-24 20:34 | Emergency (ER) | payer MEDICARE, OTHER ==
[2021-05-24 22:07] VITALS: BP 155/81; PULSE 59; RESP 15; TEMP 97.8
--- NOTE | 2021-05-24 22:27 | ED ---
Pediatric HENT HPI - General Chief Complaint: ENT Stated Complaint: Left Ear Bleeding Time Seen by Provider: 05/24/21 22:15 Source: patient, RN notes reviewed Mode of arrival: ambulatory - History of Present Illness Initial Comments: Patient states he scratched the external meatus of his left ear about 45 hours ago and started getting some bleeding from the area. Patient states she's had bleeding from the area since. Denies any other symptomology. No other bleeding sites. He is on chemotherapy for cancer but denies any blood in the stool. No epistaxis. No other blood dyscrasias. States he feels well otherwise. No headache, no fever or chills, no changes in vision or hearing, no sore throat or difficulty with speech, no neck pain, no chest pain or shortness of breath, no abdominal pain, no nausea or vomiting, no changes in urination or bowel movements, no numbness or tingling, no extremity pain, no skin rashes or lesions. - Related Data Home Medications Medication Instructions Recorded Confirmed amLODIPine [Norvasc] 10 mg PO DAILY@0900 02/20/15 10/24/20 Carvedilol [Coreg] 25 mg PO BID@0900,1700 10/15/20 10/24/20 Doxazosin [Cardura] 2 mg PO BID@0900,1700 10/15/20 10/24/20 Lanthanum Carbonate [Lanthanum 1,000 mg PO TID@0800,1200,1700 10/15/20 10/24/20 Carbonate Chew] Patiromer Calcium Sorbitex 8.4 gm PO DAILY@0900 10/15/20 10/24/20 [Veltassa] cloNIDine HCL [Catapres] 0.3 mg PO TID@0600,1400,2200 10/15/20 10/24/20 Amoxicillin/Potassium Clav 1 tab PO BID@0900,2100 10/24/20 10/24/20 [Augmentin 500-125 Tablet] Aspirin 81 mg PO DAILY@0900 10/24/20 10/24/20 Lacosamide [Vimpat] 50 mg PO TID@0900,1300,2100 10/24/20 10/24/20 Omeprazole 20 mg PO DAILY@0600 10/24/20 10/24/20 Prostat Sugar Free Liquid Protein 1 can PO BID@0900,1700 08/14/21 08/14/21 Saba-Dwight (X-Hmdjqve-I-Folic-Acid) 1 tab PO DAILY@0900 10/24/20 10/24/20 Sevelamer [Renvela] 4,000 mg PO TID@0700,1100,1800 10/24/20 10/24/20 Previous Rx's Medication Instructions Recorded Loperamide [Imodium] 2 mg PO QID PRN cap 10/22/20 Ciprofloxacin-Hc Otic Susp [Cipro 3 drops LEFT EAR BID #10 ml 05/24/21 Hc Otic Suspension] Allergies Allergy/AdvReac Type Severity Reaction Status Date / Time Sulfa (Sulfonamide Allergy Rash/Hives Verified 05/24/21 21:58 Antibiotics) Review of Systems ROS Statement: Those systems with pertinent positive or pertinent negative responses have been documented in the HPI. ROS Other: All systems not noted in ROS Statement are negative. Past Medical History Past Medical History: Cancer, Hypertension Additional Past Medical History / Comment(s): DIALYSIS T,TH,SA; pt. is a poor historian. pt states he sees Dr. Chavis, but unsure of location of cancer. History of Any Multi-Drug Resistant Organisms: None Reported Additional Past Surgical History / Comment(s): FISTULA, right side kidney removal. Past Psychological History: No Psychological Hx Reported Smoking Status: Former smoker, Unknown if ever smoked Past Alcohol Use History: None Reported Past Drug Use History: None Reported - Past Family History Mother Family Medical History: Dementia, Hypertension General Exam - General Exam Comments Initial Comments: Healthy-appearing 65-year-old male no acute distress. Patient does not appear to be ill or toxic. General appearance: alert, in no apparent distress Head exam: Present: atraumatic, normocephalic, normal inspection Eye exam: Present: normal appearance, PERRL, EOMI. Absent: scleral icterus, conjunctival injection, periorbital swelling ENT exam: Present: normal exam, normal oropharynx, mucous membranes moist, TM's normal bilaterally, other (Minimal bleeding from the left ear canal near the inferior portion of the external meatus. Tiny abrasion to this area. No evidence of infectious process otherwise.). Absent: normal external ear exam Neck exam: Present: normal inspection, full ROM. Absent: tenderness, meningismus, lymphadenopathy Respiratory exam: Present: normal lung sounds bilaterally. Absent: respiratory distress, wheezes, rales, rhonchi, stridor Cardiovascular Exam: Present: regular rate, normal rhythm, normal heart sounds. Absent: systolic murmur, diastolic murmur, rubs, gallop, clicks GI/Abdominal exam: Present: soft, normal bowel sounds. Absent: distended, tenderness, guarding, rebound, rigid Extremities exam: Present: normal inspection, full ROM, normal capillary refill. Absent: tenderness, pedal edema, joint swelling, calf tenderness Back exam: Present: normal inspection Neurological exam: Present: alert, oriented X3, CN II-XII intact Psychiatric exam: Present: normal affect, normal mood Skin exam: Present: warm, dry, intact, normal color. Absent: rash Course Vital Signs 05/24/21 21:58 Temperature 97.8 F Pulse Rate 59 L Respiratory 15 Rate Blood Pressure 155/81 O2 Sat by Pulse 98 Oximetry - Reevaluation(s) Reevaluation #1: 05/24/21 23:59 Medical record is reviewed Patient is informed of results and questions answered Patient in no distressPatient was improved after application of tranexamic acid. There was no bleeding. We will continue with a cotton ball to left EAC until tomorrow. We will then give ciprofloxacin otic as the patient is on chemotherapy. Has seen Dr. Gonzales before. We'll have him call in the morning for follow-up appointment. Medical Decision Making - Medical Decision Making Left EAC abrasion. We'll apply tranexamic acid on a cotton ball. No bleeding at discharge. No distress. We'll have the patient call Dr. Gonzales in the morning for follow-up. Patient was told to return to the ER for any signs or symptoms worsen. Told to return immediately if any other problems arise. All questions answered. Treatment plan discussed. Patient in agreement Every effort has been made to ensure accuracy of this dictation. However, due to the limitations of electronic medical records and dictation devices, errors in charting still occur. Disposition Clinical Impression: Abrasion of left ear canal Disposition: HOME SELF-CARE Condition: Stable Instructions (If sedation given, give patient instructions): Abrasion (ED) Additional Instructions: Abrasion to left ear canal. There is some inflammation to the ear canal. The cottonball in for 12-14 hours then apply the antibiotic drops as directed. Make an appointment with the ear nose and throat doctor as discussed. Follow-up with your regular physician as directed. Return to the ER immediately if any symptoms worsen, new symptoms arise, or any other problems develop. Prescriptions: Ciprofloxacin-Hc Otic Susp [Cipro Hc Otic Suspension] 3 drops LEFT EAR BID #10 ml Is patient prescribed a controlled substance at d/c from ED?: No Referrals: Wander Fernando DO [Primary Care Provider] - 1-2 days Abdifatah Cummings DO [Doctor of Osteopathic Medicine] - 1-2 days Time of Disposition: 23:56
[2021-05-24] MEDS ORDERED: TRANEXAMIC ACID IN NACL,ISO-OS 1,000 MG/100 ML BAG IRRIGATION ONE (22:30)
[2021-05-24] MEDS ORDERED: TRANEXAMIC ACID IN NACL,ISO-OS 1,000 MG in SALINE 1 100ML.BAG IVPB ONE (22:30)
[2021-05-24] MEDS ORDERED: TRANEXAMIC ACID 1,000 MG/10 ML VIAL IRRIGATION ONE (23:00)
== END 2021-05-25 00:21 | disposition home or self-care (01) ==
LOC: EC 20:34
DX: S00.412A Abrasion of left ear, initial encounter (principal); I10 Essential (primary) hypertension; Z87.891 Personal history of nicotine dependence; Z79.82 Long term (current) use of aspirin; Z79.899 Other long term (current) drug therapy; X58.XXXA Exposure to other specified factors, initial encounter
CPT/HCPCS: 99283

== ENCOUNTER 2022-01-21 00:58 | Inpatient (IN) | payer MEDICARE, OTHER ==
[2022-01-21] MEDS ORDERED: MORPHINE SULFATE 4 MG/ML SYRINGE IVP STA ×2 (01:12→01:37)
[2022-01-21 01:17] LABS: Basophils % (A) 1 %; Eosinophils # (A) 0.2 k/uL (0-0.7); Eosinophils % (A) 4 %; HCT 26.4 % (39.0-53.0); HGB 9.1 gm/dL (13.0-17.5); Lymphocytes # (A) 0.6 k/uL (1.0-4.8); Lymphocytes % (A) 16 %; MCH 33.2 pg (25.0-35.0); MCHC 34.3 g/dL (31.0-37.0); MCV 96.8 fL (80.0-100.0); Mean Platelet Volume 9.4; Monocytes # (A) 0.3 k/uL (0-1.0); Monocytes % (A) 7 %; Neutrophils # (A) 2.8 k/uL (1.3-7.7); Neutrophils % (A) 71 %; Platelet Count 107 k/uL (150-450); RBC 2.73 m/uL (4.30-5.90); RDW 13.4 % (11.5-15.5); WBC 3.9 k/uL (3.8-10.6)
[2022-01-21] MEDS ORDERED: HEPARIN SODIUM 1,000 UN/ML (10ML VL) MISCELLANE STA (01:22)
--- NOTE | 2022-01-21 01:24 | ED ---
Chest Pain HPI - General Chief Complaint: Chest Pain Stated Complaint: STEMI Time Seen by Provider: 01/21/22 01:00 Source: patient, EMS Mode of arrival: EMS Limitations: no limitations - History of Present Illness Initial Comments: This patient is 66-year-old man who presents to be evaluated for left-sided chest pain. The patient states that 12 hours ago now, he had onset of an episode of sweating followed shortly thereafter by left-sided chest pain. When the symptoms did not resolve, he called EMS who transported him here. The patient notes there is some nausea as well. He continues to have pain that was relieved a little bit by nitroglycerin that was administered by EMS. MD Complaint: chest pain Onset/Timin -: hour(s) Onset: during rest Pain Location: left chest Pain Radiation: none Severity: severe Quality: aching Consistency: constant Improves With: nothing Anginal Symptoms: nausea, diaphoresis Treatments Prior to Arrival: aspirin, nitroglycerin, oxygen - Related Data Home Medications Medication Instructions Recorded Confirmed amLODIPine [Norvasc] 10 mg PO DAILY@0900 02/20/15 10/24/20 Doxazosin [Cardura] 2 mg PO BID@0900,1700 10/15/20 10/24/20 Lanthanum Carbonate [Lanthanum 1,000 mg PO TID@0800,1200,1700 10/15/20 10/24/20 Carbonate Chew] Patiromer Calcium Sorbitex 8.4 gm PO DAILY@0900 10/15/20 10/24/20 [Veltassa] carvediloL [Coreg] 25 mg PO BID@0900,1700 10/15/20 10/24/20 cloNIDine HCL [Catapres] 0.3 mg PO TID@0600,1400,2200 10/15/20 10/24/20 Amoxicillin/Potassium Clav 1 tab PO BID@0900,2100 10/24/20 10/24/20 [Augmentin 500-125 Tablet] Aspirin 81 mg PO DAILY@0900 10/24/20 10/24/20 Lacosamide [Vimpat] 50 mg PO TID@0900,1300,2100 10/24/20 10/24/20 Omeprazole 20 mg PO DAILY@0600 10/24/20 10/24/20 Prostat Sugar Free Liquid Protein 1 can PO BID@0900,1700 10/24/20 10/24/20 Saba-Dwight (W-Wrxsizy-A-Folic-Acid) 1 tab PO DAILY@0900 10/24/20 10/24/20 Sevelamer [Renvela] 4,000 mg PO TID@0700,1100,1800 10/24/20 10/24/20 Previous Rx's Medication Instructions Recorded Loperamide [Imodium] 2 mg PO QID PRN cap 10/22/20 Ciprofloxacin-Hc Otic Susp [Cipro 3 drops LEFT EAR BID #10 ml 05/24/21 Hc Otic Suspension] Allergies Allergy/AdvReac Type Severity Reaction Status Date / Time Sulfa (Sulfonamide Allergy Rash/Hives Verified 01/21/22 00:59 Antibiotics) Review of Systems ROS Statement: Those systems with pertinent positive or pertinent negative responses have been documented in the HPI. ROS Other: All systems not noted in ROS Statement are negative. Constitutional: Denies: fever, chills Respiratory: Reports: dyspnea. Denies: cough Cardiovascular: Reports: chest pain. Denies: palpitations, orthopnea, edema, syncope Gastrointestinal: Reports: nausea. Denies: vomiting, diarrhea, constipation Genitourinary: Denies: dysuria, hematuria Musculoskeletal: Denies: back pain Skin: Denies: rash Neurological: Denies: headache, weakness, numbness Psychiatric: Reports: anxiety EKG Findings - EKG Comments: EKG Findings:: Versus the comparison ECG, today the patient appears to have ST elevations in leads 1 and aVL with reciprocal change in V3. - EKG Results: EKG: interpreted by ERMD, sinus rhythm, normal axis - Blocks, [place], Hypertrophy, ST Abn: AV and intraventricular conduction: intraventricular conduction delay - MS, Pacemaker, Normal: Myocardial infarction: lateral MS (acute or recent) Past Medical History Past Medical History: Cancer, Hypertension Additional Past Medical History / Comment(s): DIALYSIS T,TH,SA; pt. is a poor historian. pt states he sees Dr. Chavis, but unsure of location of cancer. History of Any Multi-Drug Resistant Organisms: None Reported Additional Past Surgical History / Comment(s): FISTULA, right side kidney removal. Past Psychological History: No Psychological Hx Reported Smoking Status: Former smoker, Unknown if ever smoked Past Alcohol Use History: None Reported Past Drug Use History: None Reported - Past Family History Mother Family Medical History: Dementia, Hypertension General Exam Limitations: no limitations General appearance: alert, in distress Head exam: Present: atraumatic, normocephalic Eye exam: Present: normal appearance. Absent: scleral icterus, conjunctival injection ENT exam: Present: normal oropharynx Neck exam: Present: normal inspection Respiratory exam: Present: normal lung sounds bilaterally. Absent: respiratory distress, wheezes, rales, rhonchi, stridor, chest wall tenderness, accessory muscle use Cardiovascular Exam: Present: normal rhythm, bradycardia, systolic murmur. Absent: diastolic murmur, rubs, gallop GI/Abdominal exam: Present: soft. Absent: distended, tenderness, guarding, rebound, rigid, mass Extremities exam: Present: normal inspection, normal capillary refill. Absent: pedal edema, calf tenderness Back exam: Present: normal inspection. Absent: CVA tenderness (R), CVA tenderness (L) Neurological exam: Present: alert Skin exam: Present: warm, dry, intact. Absent: rash Course Vital Signs 01/21/22 01/21/22 01/21/22 00:59 01:10 01:20 Temperature 98.3 F Pulse Rate 53 L 52 L 58 L Respiratory 16 18 27 H Rate Blood Pressure 102/71 102/71 144/104 O2 Sat by Pulse 97 100 100 Oximetry 01/21/22 01/21/22 01/21/22 01:25 01:30 01:35 Temperature Pulse Rate 56 L 57 L 56 L Respiratory 6 L 18 16 Rate Blood Pressure 183/99 176/87 171/84 O2 Sat by Pulse 100 Oximetry 01/21/22 01:40 Temperature Pulse Rate 55 L Respiratory 16 Rate Blood Pressure 173/85 O2 Sat by Pulse 100 Oximetry Chest Pain [facility] Patient is 66-year-old man presenting by ambulance with onset of left-sided chest pain, diaphoresis, nausea. The patient ECG does appear to show elevations in 1, aVL with reciprocal change in lead 3. I discussed case with Dr. James and Phone Banker activated. Critical Care Time Critical Care Time: Yes (35 minutes) Disposition Clinical Impression: ST elevation myocardial infarction (STEMI) Disposition: ADMITTED IP TO THIS [facility] Condition: Critical
[2022-01-21] MEDS ORDERED: ACETAMINOPHEN TAB 325 MG TAB PO PRN (01:25)
[2022-01-21] MEDS ORDERED: NALOXONE 0.4 MG/ML 1 ML VIAL IV PRN ×2 (01:25→02:32)
[2022-01-21] MEDS ORDERED: MORPHINE SULFATE 4 MG/ML SYRINGE IV PRN (01:25)
[2022-01-21 01:30] LABS: Albumin 3.3 g/dL (3.5-5.0); Calcium 7.9 mg/dL (8.4-10.2); Magnesium 2.1 mg/dL (1.6-2.3); Potassium 3.4 mmol/L (3.5-5.1); Total Bilirubin 0.4 mg/dL (0.2-1.3); Total Protein 5.4 g/dL (6.3-8.2)
[2022-01-21] MEDS ORDERED: SODIUM CHLORIDE 0.9% 1,000 ML IV SCH (01:30)
[2022-01-21 01:33] LABS: INR 1.2 (<1.2); Partial Thromboplastin Time 26.7 sec (22.0-30.0); Prothrombin Time 12.5 sec (9.0-12.0)
--- NOTE | 2022-01-21 01:35 | XR ---
EXAMINATION TYPE: XR chest 1V portable DATE OF EXAM: 01/21/2022 COMPARISON: 10/28/2020 HISTORY: Chest pain TECHNIQUE: Single view FINDINGS: There is some coarsening of interstitial markings. No heart failure. There are chest leads. Thoracic aorta is atheromatous. IMPRESSION: Mild pulmonary fibrosis. There is clearing of the left pleural effusion compared to old e xam. No obvious heart failure.
[2022-01-21] MEDS ORDERED: VERAPAMIL 2.5 MG/ML 2 ML AMP ONE (01:46)
[2022-01-21] MEDS ORDERED: IV FLUID CONTINUATION 1,000 ML IV ONE (01:58)
[2022-01-21] MEDS ORDERED: HEPARIN SODIUM 1,000 UN/ML (10ML VL) ONE (01:58)
[2022-01-21] MEDS ORDERED: LIDOCAINE 1% INJ 10MG/ML (30 ML VIAL-PF) SQ ONE (02:02)
[2022-01-21] MEDS ORDERED: MIDAZOLAM 2 MG/2 ML VIAL IV ONE (02:03)
[2022-01-21] MEDS ORDERED: VERAPAMIL SYRINGE (5 MG/10 ML) INTRAARTER ONE (02:03)
[2022-01-21] MEDS ORDERED: HEPARIN SODIUM 1,000 UN/ML (10ML VL) IV ONE (02:08)
[2022-01-21] MEDS ORDERED: CLOPIDOGREL 75 MG TAB ONE (03:03)
[2022-01-21] MEDS ORDERED: CLOPIDOGREL 75 MG TAB PO ONE (03:10)
[2022-01-21] MEDS ORDERED: PHENYLEPHRINE-0.9% NACL SYG 1,000 MCG/10 ML SYRINGE IV ONE (03:26)
[2022-01-21] MEDS ORDERED: IOPAMIDOL-370 100ML BTL INJ ONE (03:36)
[2022-01-21] MEDS ORDERED: IOPAMIDOL-370 125ML BTL INJ ONE (03:36)
[2022-01-21] MEDS ORDERED: ZOLPIDEM 5 MG TAB PO PRN (03:41)
[2022-01-21] MEDS ORDERED: MAG HYDROX/AL HYDROX/SIMETH 30 ML CUP PO PRN (03:41)
[2022-01-21] MEDS ORDERED: NITROGLYCERIN SL TABS 0.4 MG TAB SUBLINGUAL PRN (03:41)
[2022-01-21] MEDS ORDERED: RX INFO: IV CONTRAST WAS GIVEN 1 EACH MISC MISCELLANE PRN (03:41)
[2022-01-21] MEDS ORDERED: ATROPINE SULFATE 0.1 MG/ML 10ML SYRINGE IV PRN (03:41)
[2022-01-21] MEDS ORDERED: SODIUM CHLORIDE 0.9% 1,000 ML in EMPTY BAG 1 BAG IV SCH (03:45)
--- NOTE | 2022-01-21 03:49 | P.CRDCN ---
History of Present Illness Consult date: 01/21/22 Chief complaint: Chest pain History of present illness: This is a 66-year-old gentleman with a past medical history significant for end stage renal disease on hemodialysis as well as hypertension and dyslipidemia and valvular heart disease was noted mild aortic stenosis based on echocardiogram was performed in 2020 as well as moderate mitral regurgitation was brought to the hospital by ambulance for further evaluation of chest discomfort and EKG concerning for acute anterior/lateral ST segment deviation. The patient discomfort started about 12 hours ago. He described pain on the left side of the chest as a dull kind of discomfort/pressure kind of discomfort associated with sweating and shortness of breath. An EKG was performed and showed finding concerning for anterior/lateral ST segment deviation myocardial infarction. An emergent heart catheterization was advised. The patient underwent a heart catheterization and that revealed intermediate lesion involving the very proximal LAD with haziness as well as a plaque rupture and thrombus formation. Also he was found to have occluded small first diagonal branch. The patient u nderwent successful stenting of the proximal left anterior descending artery with a good angiographic results and was ALEX-3 flow. The procedure was performed from right radial approach. He was chest pain-free by the end of the procedure. The patient will be admitted to the intensive care unit. He will be placed on dual antiplatelet therapy along with high intensity statin. I would hold any beta arpit or CHANI inhibitor at this point in the light of marginally low blood pressure required small dose of vasopressors at one time only. An echocardiogram will be performed to assess the aortic valve. Clearly he does have systolic murmur was decrease in the intensity of S2. The echo from 2020 showed only mild aortic stenosis but the murmur at this time definitely seems to be somewhat concerning for at least moderate aortic stenosis. Beside that we'll consult nephrology regarding hemodialysis. Past Medical History Past Medical History: Cancer, Hypertension Additional Past Medical History / Comment(s): DIALYSIS T,TH,SA; pt. is a poor historian. pt states he sees Dr. Chavis, but unsure of location of cancer. History of Any Multi-Drug Resistant Organisms: None Reported Additional Past Surgical History / Comment(s): FISTULA, right side kidney removal. Past Psychological History: No Psychological Hx Reported Smoking Status: Former smoker, Unknown if ever smoked Past Alcohol Use History: None Reported Past Drug Use History: None Reported - Past Family History Mother Family Medical History: Dementia, Hypertension Medications and Allergies Home Medications Medication Instructions Recorded Confirmed Type amLODIPine [Norvasc] 10 mg PO DAILY@0900 02/20/15 10/24/20 History Doxazosin [Cardura] 2 mg PO BID@0900,1700 10/15/20 10/24/20 History Lanthanum Carbonate [Lanthanum 1,000 mg PO TID@0800,1200,1700 10/15/20 10/24/20 History Carbonate Chew] Patiromer Calcium Sorbitex 8.4 gm PO DAILY@0900 10/15/20 10/24/20 History [Veltassa] carvediloL [Coreg] 25 mg PO BID@0900,1700 10/15/20 10/24/20 History cloNIDine HCL [Catapres] 0.3 mg PO TID@0600,1400,2200 10/15/20 10/24/20 History Loperamide [Imodium] 2 mg PO QID PRN cap 10/22/20 10/24/20 Rx Amoxicillin/Potassium Clav 1 tab PO BID@0900,2100 10/24/20 10/24/20 History [Augmentin 500-125 Tablet] Aspirin 81 mg PO DAILY@0900 10/24/20 10/24/20 History Lacosamide [Vimpat] 50 mg PO TID@0900,1300,2100 10/24/20 10/24/20 History Omeprazole 20 mg PO DAILY@0600 10/24/20 10/24/20 History Prostat Sugar Free Liquid Protein 1 can PO BID@0900,1700 10/24/20 10/24/20 History Saba-Dwight (O-Gqqgcyb-A-Folic-Acid) 1 tab PO DAILY@0900 10/24/20 10/24/20 History Sevelamer [Renvela] 4,000 mg PO TID@0700,1100,1800 10/24/20 10/24/20 History Ciprofloxacin-Hc Otic Susp [Cipro 3 drops LEFT EAR BID #10 ml 05/24/21 Rx Hc Otic Suspension] Allergies Allergy/AdvReac Type Severity Reaction Status Date / Time Sulfa (Sulfonamide Allergy Rash/Hives Verified 01/21/22 00:59 Antibiotics) Physical Exam Vitals: Vital Signs Temp Pulse Resp BP Pulse Ox 01/21/22 01:40 55 L 16 173/85 100 01/21/22 01:35 56 L 16 171/84 100 01/21/22 01:30 57 L 18 176/87 01/21/22 01:25 56 L 6 L 183/99 01/21/22 01:20 58 L 27 H 144/104 100 01/21/22 01:10 52 L 18 102/71 100 01/21/22 00:59 98.3 F 53 L 16 102/71 97 Intake and Output 01/20/22 01/20/22 01/21/22 14:59 22:59 06:59 Intake Total 880 Balance 880 Intake: IV 880 Other: Weight 65.771 kg - Constitutional General appearance: no acute distress - Respiratory Respiratory: bilateral: CTA - Cardiovascular Rhythm: regular Heart sounds: normal: S1, S2 Abnormal Heart Sounds: systolic murmur Results 01/21/22 01:05 01/21/22 01:05 Cardiac Enzymes 01/21/22 01/21/22 Range/Units 01:05 01:05 AST 17 (17-59) U/L Troponin I 0.033 (0.000-0.034) ng/mL Coagulation 01/21/22 Range/Units 01:05 PT 12.5 H (9.0-12.0) sec APTT 26.7 (22.0-30.0) sec CBC 01/21/22 Range/Units 01:05 WBC 3.9 (3.8-10.6) k/uL RBC 2.73 L (4.30-5.90) m/uL Hgb 9.1 L (13.0-17.5) gm/dL Hct 26.4 L (39.0-53.0) % Plt Count 107 L (150-450) k/uL Comprehensive Metabolic Panel 01/21/22 Range/Units 01:05 Sodium 140 (137-145) mmol/L Potassium 3.4 L (3.5-5.1) mmol/L Chloride 105 (98-107) mmol/L Carbon Dioxide 27 (22-30) mmol/L BUN 28 H (9-20) mg/dL Creatinine 4.60 H (0.66-1.25) mg/dL Glucose 118 H (74-99) mg/dL Calcium 7.9 L (8.4-10.2) mg/dL AST 17 (17-59) U/L ALT 15 (4-49) U/L Alkaline Phosphatase 91 (38-126) U/L Total Protein 5.4 L (6.3-8.2) g/dL Albumin 3.3 L (3.5-5.0) g/dL Current Medications Generic Name Dose Route Start Last Admin Trade Name Freq PRN Reason Stop Dose Admin Acetaminophen 650 mg 01/21/22 01:25 Acetaminophen Tab 325 Mg Tab PO Q4HR PRN Fever and/or Mild Pain Al Hydroxide/Mg Hydroxide 30 ml 01/21/22 03:41 Mag Hydrox/Al Hydrox/Simeth 30 Ml Cup PO Q4HR PRN Heartburn Aspirin 81 mg 01/21/22 09:00 Aspirin 81 Mg PO DAILY@0900 [facility] Atorvastatin Calcium 80 mg 01/21/22 21:00 Atorvastatin 80 Mg Tab PO HS [facility] Atropine Sulfate 0.5 mg 01/21/22 03:41 Atropine Sulfate 0.1 Mg/Ml 10ml Syringe IV ONCE PRN Symptomatic Bradycardia Clopidogrel Bisulfate 75 mg 01/22/22 09:00 Clopidogrel 75 Mg Tab PO DAILY [facility] Protocol Famotidine 20 mg 01/21/22 09:00 Famotidine 20 Mg/2 Ml Vial IV Q12HR [facility] Sodium Chloride 1,000 mls @ 20 mls/hr 01/21/22 01:30 01/21/22 01:31 Saline 0.9% IV 20 mls/hr .Q24H MARIAH Administration Sodium Chloride 1,000 ml/ IV 1,000 mls @ 75 mls/hr 01/21/22 03:45 Solution IV 01/21/22 08:46 .[id number] [facility] Miscellaneous Information 1 each 01/21/22 03:41 Rx Info: Iv Contrast Was Given 1 Each Misc MISCELLANE 01/23/22 03:42 DAILY PRN Per Protocol Morphine Sulfate 4 mg 01/21/22 01:25 Morphine Sulfate 4 Mg/Ml Syringe IV Q3HR PRN Severe Pain (Scale 7 to 10) Naloxone HCl 0.2 mg 01/21/22 01:25 Naloxone 0.4 Mg/Ml 1 Ml Vial IV Q2M PRN Opioid Reversal Naloxone HCl 0.2 mg 01/21/22 02:32 Naloxone 0.4 Mg/Ml 1 Ml Vial IV Q2M PRN Opioid Reversal Nitroglycerin 0.4 mg 01/21/22 03:41 Nitroglycerin Sl Tabs 0.4 Mg Tab SUBLINGUAL Q5M PRN Chest Pain Zolpidem Tartrate 5 mg 01/21/22 03:41 Zolpidem 5 Mg Tab PO HS PRN Insomnia Intake and Output 01/20/22 01/20/22 01/21/22 14:59 22:59 06:59 Intake Total 880 Balance 880 Intake: IV 880 Other: Weight 65.771 kg Patient Weight 01/21/22 06:59 Weight 65.771 kg 01/21/22 01:05 01/21/22 01:05 Assessment and Plan Assessment: Assessment #1 acute coronary syndrome as described above #2 status post PCI of the left anterior descending artery #3 in stage renal disease on dialysis #4 hypertension #5 dyslipidemia Plan #1 continue dual antiplatelet therapy #2 continue high intensity statin #3 hold any beta arpit or CHANI inhibitor in the light of marginal blood pressure #4 obtain an echocardiogram was Doppler to assess ejection fraction and aortic valve #5 ICU admission #6 follow-up with the patient
--- NOTE | 2022-01-21 03:58 | P.PCN ---
Date of Procedure: 01/21/22 Operative Findings: CARDIAC CATHETERIZATION AND PERCUTANEOUS CORONARY INTERVENTION PERFORMING PHYSICIAN: Naveed James MD, VI PROCEDURE PERFORMED: 1. Selective right and left coronary angiogram 2. Successful stenting of proximal LAD using 3.5 x 15 mm and 3.5 x 18 mm Xience BRANDON which with an excellent angiographic results 3. Intravascular ultrasound of the left anterior descending artery INDICATION: Acute ST segment elevation myocardial infarction in this 66-year-old gentleman who presented with a chest discomfort and EKG concerning for acute anterior ST segment elevation. He does have also into stage renal disease on dialysis as well as hypertension and dyslipidemia COMPLICATION: None APPROACH: Right radial artery LEVEL OF SEDATION: Moderate with the sedation time off 92 minutes PROCEDURE DESCRIPTION: After obtaining an informed consent the patient was brought to the cardiac warehouse general laborer. The right radial artery was cannulated using micropuncture technique, the micropuncture wire passed easily then I placed a 6-Slovak sheath in the right radial artery. At that point anticoagulation was initiated using additional 2000 units of heparin were the patient was given 4000 in the emergency department 45 minutes ago. Then I did give the patient 2 mg of verapamil IV. Selective right and left coronary angiogram was performed. Selective right coronary angiogram performed using JR4 catheter and selective left coronary an giogram was performed using JL 3.5 catheter. After that I did intervene on the LAD as well as first diagonal branch of the LAD. The procedure was completed without any complication SELECTIVE CORONARY ANGIOGRAM: The right coronary artery: Large caliber vessel and a dominant vessel. 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 The left circumflex: The LCx has an anomalous origin from the right coronary artery. It does have mild disease only. The left anterior descending artery: The proximal LAD appears to have a hazy/calcified lesion with a plaque rupture. The lesion appeared to be in the range of 60-70%. The LAD proximally gives rises into a large diagonal branch which Gives a small to medium size subbranch. That subbranch appeared to be subtotally occluded. The mid and distal LAD have mild disease only. PCI OF THE LAD: Anticoagulation as a mentioned was initiated using heparin with continuous ACT monitoring. I did engage the left main using JL 3.5 guiding catheter. The initial impression was that the diagonal was the culprit lesion for that reason I did wire the diagonal using a whisper wire. Attempting advancing initially 1.5 and then 1 mm balloon was unsuccessful and at that point we realize that the diagonal probably was chronically occluded and not the culprit lesion. Further investigation of the LAD was performed using intravascular ultrasound and the catheter was unable to cross the lesion but was able to enter the very proximal part of the lesion which appears to be extremely calcified with eccentric lesion appeared to be extremely tight. At that point and in the light of continuing chest discomfort with decided to pursue with intervention on the LAD. I did balloon the LAD using 3.5 mm balloon. Subsequently I deployed 3.5 x 15 mm stent where the stent was positioned under fluoroscopy guidance and deployed under its nominal pressure. Following angiogram showed distal edge dissection which I d ecided to cover that using another 3.5 x 18 mm stent which was positioned distal to the first stent with about 2 mm overlap between the first and second stent. Please note that guideline or was used to get the stent this time. I did deploy the second stent under 12 eugenia for 20 seconds. The area of overlap was dilated using the same stent balloon. Then I did postdilated using 4 mm noncompliant b alloon. Final angiogram showed excellent angiographic results was ALEX-3 flow and the patient was chest pain-free by the end of the procedure. CONCLUSION: #1 Acute coronary syndrome. The patient presented with a chest discomfort and EKG concerning for ST segment elevation in the anterior/lateral leads #2 Plaque rupture involving the very proximal LAD. 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
[2022-01-21 03:59] LABS: Glucose,Whole Blood 205 mg/dL (70-110)
[2022-01-21] MEDS ORDERED: NOREPINEPHRIN 4 MG-0.9% NS PMX 4 MG/250 ML ML IV ONE (04:11)
[2022-01-21] MEDS: NOREPINEPHRINE 4 MG in SODIUM CHLORIDE 0.9% 250 ML IV SCH ×3 (04:15→11:36)
[2022-01-21] MEDS ORDERED: POTASSIUM CHLORIDE ER 20 MEQ TAB.ER PO SCH (05:00)
[2022-01-21] MEDS ORDERED: FLUMAZENIL 0.1 MG/ML 5 ML VIAL IVP PRN (05:00)
--- NOTE | 2022-01-21 05:42 | P.HPIM ---
History of Present Illness H&P Date: 01/21/22 The patient is a 66-year-old male with a PMH of ESRD on hemodialysis, hypertension, hyperlipidemia, and aortic stenosis who had presented to the emergency room with complaints of chest discomfort. The patient had reported experiencing left-sided chest discomfort that started 12 hours ago, with associated shortness of breath, diaphoresis, and palpitations. The patient's EKG performed in the emergency room was concerning for ST elevation AR for which cardiology was immediately consulted and the patient was taken for cardiac catheterization which revealed a proximal LAD occlusion, for which a stent was placed. The patient was seen postoperatively on the ICU. He reported no further chest discomfort. Reported feeling tired (he had received sedation recently). Endorsed having left upper quadrant abdominal pain, which started earlier today. Denied nausea, vomiting, fever, chills, cough. At time of interview, the patient's blood pressure was noted to be low at 73/50. The pat ient was initiated on Levophed by cardiology. Review of systems: Pertinent positives and negatives as discussed in HPI, a complete review of systems was performed and all other systems are negative. Physical examination: General: non toxic, no distress, appears at stated age, normal weight Derm: no unusual rashes/lesions, warm Head: atraumatic, normocephalic, symmetric Eyes: EOMI, no lid lag, anicteric sclera, pupils equal round reactive to light ENT: Nose and ears atraumatic Neck: No cervical lymphadenopathy, trachea midline, supple Mouth: no lip lesion, mucus membranes moist Cardiovascular: S1S2 reg, no murmur, positive dorsalis pedis pulse bilateral, no edema Lungs: CTA bilateral, no rhonchi, no rales, no accessory muscle use Abdominal: soft, left upper quadrant tenderness to palpation, guarding Ext: muscle strength 5 out of 5 in all 4 extremities grossly, no gross muscle atrophy, no contractures, Neuro: CN II-XI grossly intact, no gross focal neuro deficits Psych: Lethargic, oriented to person, place, and Assessment/plan LUQ abdominal pain with guarding -Obtain CT abdomen and pelvis ST elevation AR status post stenting to LAD -Continue with aspirin, Plavix, Lipitor -Cardiology recommendations appreciated -Cardiac monitoring -Echocardiogram ESRD and hemodialysis -Nephrology consulted for resumption of dialysis DVT prophylaxis -Heparin subq The patient is admitted with an anticipated greater than 2 midnight stay for evaluation of STEMI0 CODE STATUS: Full Code Discussed with: Patient Anticipated discharge date: 2-[address]: Home Past Medical History Past Medical History: Cancer, Hypertension Additional Past Medical History / Comment(s): DIALYSIS T,TH,SA; pt. is a poor historian. pt states he sees Dr. Chavis, but unsure of location of cancer. History of Any Multi-Drug Resistant Organisms: None Reported Additional Past Surgical History / Comment(s): FISTULA, right side kidney removal. Past Psychological History: No Psychological Hx Reported Smoking Status: Former smoker, Unknown if ever smoked Past Alcohol Use History: None Reported Past Drug Use History: None Reported - Past Family History Mother Family Medical History: Dementia, Hypertension Medications and Allergies Home Medications Medication Instructions Recorded Confirmed Type amLODIPine [Norvasc] 10 mg PO DAILY@0900 02/20/15 10/24/20 History Doxazosin [Cardura] 2 mg PO BID@0900,1700 10/15/20 10/24/20 History Lanthanum Carbonate [Lanthanum 1,000 mg PO TID@0800,1200,1700 10/15/20 10/24/20 History Carbonate Chew] Patiromer Calcium Sorbitex 8.4 gm PO DAILY@0900 10/15/20 10/24/20 History [Veltassa] carvediloL [Coreg] 25 mg PO BID@0900,1700 10/15/20 10/24/20 History cloNIDine HCL [Catapres] 0.3 mg PO TID@0600,1400,2200 10/15/20 10/24/20 History Loperamide [Imodium] 2 mg PO QID PRN cap 10/22/20 10/24/20 Rx Amoxicillin/Potassium Clav 1 tab PO BID@0900,2100 10/24/20 10/24/20 History [Augmentin 500-125 Tablet] Aspirin 81 mg PO DAILY@0900 10/24/20 10/24/20 History Lacosamide [Vimpat] 50 mg PO TID@0900,1300,2100 10/24/20 10/24/20 History Omeprazole 20 mg PO DAILY@0600 10/24/20 10/24/20 History Prostat Sugar Free Liquid Protein 1 can PO BID@0900,1700 10/24/20 10/24/20 History Saba-Dwight (Z-Znrbqew-W-Folic-Acid) 1 tab PO DAILY@0900 10/24/20 10/24/20 History Sevelamer [Renvela] 4,000 mg PO TID@0700,1100,1800 10/24/20 10/24/20 History Ciprofloxacin-Hc Otic Susp [Cipro 3 drops LEFT EAR BID #10 ml 05/24/21 Rx Hc Otic Suspension] Allergies Allergy/AdvReac Type Severity Reaction Status Date / Time Sulfa (Sulfonamide Allergy Rash/Hives Verified 01/21/22 00:59 Antibiotics) Physical Exam Vitals: Vital Signs Temp Pulse Resp BP Pulse Ox 01/21/22 05:00 62 26 H 73/50 99 01/21/22 04:45 61 20 82/57 100 01/21/22 04:30 60 14 90/62 100 01/21/22 04:15 58 L 23 86/56 100 01/21/22 04:10 58 L 27 H 69/47 99 01/21/22 04:05 95.1 F L 55 L 32 H 68/49 92 L 01/21/22 04:00 58 L 14 72/50 01/21/22 03:58 26 H 01/21/22 01:40 55 L 16 173/85 100 01/21/22 01:35 56 L 16 171/84 100 01/21/22 01:30 57 L 18 176/87 01/21/22 01:25 56 L 6 L 183/99 01/21/22 01:20 58 L 27 H 144/104 100 01/21/22 01:10 52 L 18 102/71 100 01/21/22 00:59 98.3 F 53 L 16 102/71 97 Intake and Output 01/20/22 01/20/22 01/21/22 14:59 22:59 06:59 Intake Total 1046.246 Output Total 0 Balance 1046.246 Intake: IV 1030 Sodium Chloride 0.9% 1, 150 000 ml In Empty Bag 1 bag @ 75 mls/hr IV .[id number] [facility] Rx#:[id number] Intake, IV Titration 16.246 Amount Norepinephrine 4 mg In 16.246 Sodium Chloride 0.9% 250 ml @ 0.03 MCG/KG/MIN 7. 518 mls/hr IV .Q24H [facility] Rx#:[id number] Output: Urine 0 Other: Weight 65.771 kg Results CBC & Chem 7: 01/21/22 01:05 01/21/22 01:05 Labs: Abnormal Lab Results - Last 24 Hours (Table) 01/21/22 01/21/22 01/21/22 Range/Units 01:05 01:05 01:05 RBC 2.73 L (4.30-5.90) m/uL Hgb 9.1 L (13.0-17.5) gm/dL Hct 26.4 L (39.0-53.0) % Plt Count 107 L (150-450) k/uL Lymphocytes # 0.6 L (1.0-4.8) k/uL PT 12.5 H (9.0-12.0) sec INR 1.2 H (<1.2) Potassium 3.4 L (3.5-5.1) mmol/L BUN 28 H (9-20) mg/dL Creatinine 4.60 H (0.66-1.25) mg/dL Glucose 118 H (74-99) mg/dL POC Glucose (mg/dL) (70-110) mg/dL Calcium 7.9 L (8.4-10.2) mg/dL Total Protein 5.4 L (6.3-8.2) g/dL Albumin 3.3 L (3.5-5.0) g/dL Amylase 126 H (30-110) U/L 01/21/22 Range/Units 03:57 RBC (4.30-5.90) m/uL Hgb (13.0-17.5) gm/dL Hct (39.0-53.0) % Plt Count (150-450) k/uL Lymphocytes # (1.0-4.8) k/uL PT (9.0-12.0) sec INR (<1.2) Potassium (3.5-5.1) mmol/L BUN (9-20) mg/dL Creatinine (0.66-1.25) mg/dL Glucose (74-99) mg/dL POC Glucose (mg/dL) 205 H (70-110) mg/dL Calcium (8.4-10.2) mg/dL Total Protein (6.3-8.2) g/dL Albumin (3.5-5.0) g/dL Amylase (30-110) U/L
[2022-01-21] MEDS: POTASSIUM CHLORIDE 10 MEQ in WATER FOR INJECTION 1 100ML.BAG IVPB SCH ×2 (06:36→09:02)
[2022-01-21 06:57] LABS: Glucose,Whole Blood 255 mg/dL (70-110)
[2022-01-21] MEDS ORDERED: SODIUM CHLORIDE 0.9% 500 ML 500 ML IV ONE ×2 (07:01→09:03)
[2022-01-21] MEDS ORDERED: propofoL 100 ML IV ONE (07:02)
--- NOTE | 2022-01-21 07:50 | XR ---
EXAMINATION TYPE: XR chest 1V portable DATE OF EXAM: 01/21/2022 HISTORY: Shortness of breath. COMPARISON: 01/21/2027 TECHNIQUE: Single view of the chest is submitted. FINDINGS: Endotracheal tube is approximately 2.1 cm from the dotty. NG tube is seen coursing into the stomach. Linear atelectasis or infiltrate left lower lobe. The heart is stable. Hilar and mediastinal structures are within normal limits. Degenerative changes are seen of the dorsal spine. IMPRESSION: 1. Linear atelectasis or infiltrate left lower lobe.
--- NOTE | 2022-01-21 07:53 | XR ---
EXAMINATION TYPE: XR chest 1V portable DATE OF EXAM: 01/21/2022 HISTORY: Shortness of breath. COMPARISON: 01/21/22 TECHNIQUE: Single view of the chest is submitted. FINDINGS: Endotracheal tube is 1.8 cm from the dotty and should be pulled back 1 or 2 cm. Linear atelectasis or infiltrate left lower lobe. The heart is stable. Hilar and mediastinal structures are within normal limits. Degenerative changes are seen of the dorsal spine. IMPRESSION: 1. Endotracheal tube is 1.8 cm from the dotty and should be pulled back 1 or 2 cm.
[2022-01-21] MEDS ORDERED: HEPARIN SODIUM,PORCINE/PF 5,000 UNIT/0.5 ML SYRINGE SQ SCH (08:00)
[2022-01-21 08:31] LABS: Albumin 3.1 g/dL (3.5-5.0); Basophils % (A) 1 %; Calcium 8.7 mg/dL (8.4-10.2); Eosinophils % (A) 1 %; HCT 23.8 % (39.0-53.0); Hypochromasia Marked; Lymphocytes # (A) 0.9 k/uL (1.0-4.8); Lymphocytes % (A) 20 %; MCHC 30.3 g/dL (31.0-37.0); Macrocytosis Marked; Magnesium 2.8 mg/dL (1.6-2.3); Mean Platelet Volume 10.3; Monocytes # (A) 0.2 k/uL (0-1.0); Monocytes % (A) 4 %; Neutrophils # (A) 3.5 k/uL (1.3-7.7); Neutrophils % (A) 73 %; Platelet Count 142 k/uL (150-450); Potassium 5.6 mmol/L (3.5-5.1); RBC 2.18 m/uL (4.30-5.90); RDW 13.8 % (11.5-15.5); Total Bilirubin 0.8 mg/dL (0.2-1.3); Total Protein 4.8 g/dL (6.3-8.2); WBC 4.7 k/uL (3.8-10.6)
[2022-01-21 08:34] LABS: HGB 7.2 gm/dL (13.0-17.5); MCV 108.8 fL (80.0-100.0)
[2022-01-21] MEDS ORDERED: VANCOMYCIN 1,250 MG in SODIUM CHLORIDE 0.9% 250 ML IVPB STA (08:49)
[2022-01-21] MEDS ORDERED: VANCOMYCIN IV PER PHARMACY 1 EACH MISC MISCELLANE PRN (08:50)
--- NOTE | 2022-01-21 08:56 | P.NPCON ---
History of Present Illness - Reason for Consult end stage renal disease - History of Present Illness Reason for consultation: End-stage renal disease History of present illness: Patient is a 66-year-old male seen in renal consultation for end-stage renal disease. He is maintained on hemodialysis on Monday schedule via left upper extremity AV fistula. Patient presented to the hospital with left-sided chest pain which began about 12 hours prior to admission. Patient was diagnosed with acute anterior wall myocardial infarction and underwent cardiac catheterization with stenting of the LAD.patient was doing well overnight but early this morning patient became lethargic and unresponsive. He was subsequently intubated. He is currently on high-dose Levophed. There is also blood coming from the OG tube concerning for GI bleed. Patient's hemoglobin this morning is 7.2. Patient did complete hemodialysis yesterday. Patient has chronic hyperkalemia and is maintained on veltassa outpatient. Patient also follows with oncology for underlying malignancy and has received chemotherapy. Vital signs - blood pressure low. On vasopressor support. General: Resting in bed. HEENT: Intubated. OG tube noted. LUNGS: Breath sounds decreased. HEART: Rate and Rhythm are regular. ABDOMEN: Soft, mild distention. EXTREMITITES: No edema. Past Medical History Past Medical History: Cancer, Hypertension Additional Past Medical History / Comment(s): DIALYSIS ,,; pt. is a poor historian. pt states he sees Dr. Chavis, but unsure of location of cancer. History of Any Multi-Drug Resistant Organisms: None Reported Additional Past Surgical History / Comment(s): FISTULA, right side kidney removal. Past Psychological History: No Psychological Hx Reported Smoking Status: Former smoker, Unknown if ever smoked Past Alcohol Use History: None Reported Past Drug Use History: None Reported - Past Family History Mother Family Medical History: Dementia, Hypertension Medications and Allergies Home Medications Medication Instructions Recorded Confirmed Type amLODIPine [Norvasc] 10 mg PO DAILY@0900 02/20/15 10/24/20 History Doxazosin [Cardura] 2 mg PO BID@0900,1700 10/15/20 10/24/20 History Lanthanum Carbonate [Lanthanum 1,000 mg PO TID@0800,1200,1700 10/15/20 10/24/20 History Carbonate Chew] Patiromer Calcium Sorbitex 8.4 gm PO DAILY@0900 10/15/20 10/24/20 History [Veltassa] carvediloL [Coreg] 25 mg PO BID@0900,1700 10/15/20 10/24/20 History cloNIDine HCL [Catapres] 0.3 mg PO TID@0600,1400,2200 10/15/20 10/24/20 History Loperamide [Imodium] 2 mg PO QID PRN cap 10/22/20 10/24/20 Rx Amoxicillin/Potassium Clav 1 tab PO BID@0900,2100 10/24/20 10/24/20 History [Augmentin 500-125 Tablet] Aspirin 81 mg PO DAILY@0900 10/24/20 10/24/20 History Lacosamide [Vimpat] 50 mg PO TID@0900,1300,2100 10/24/20 10/24/20 History Omeprazole 20 mg PO DAILY@0600 10/24/20 10/24/20 History Prostat Sugar Free Liquid Protein 1 can PO BID@0900,1700 10/24/20 10/24/20 History Saba-Dwight (U-Nnxmygp-P-Folic-Acid) 1 tab PO DAILY@0900 10/24/20 10/24/20 History Sevelamer [Renvela] 4,000 mg PO TID@0700,1100,1800 10/24/20 10/24/20 History Ciprofloxacin-Hc Otic Susp [Cipro 3 drops LEFT EAR BID #10 ml 05/24/21 Rx Hc Otic Suspension] Allergies Allergy/AdvReac Type Severity Reaction Status Date / Time Sulfa (Sulfonamide Allergy Rash/Hives Verified 01/21/22 00:59 Antibiotics) Physical Exam Vitals: Vital Signs Temp Pulse Resp BP Pulse Ox FiO2 01/21/22 07:30 75 31 H 87/47 01/21/22 07:16 100 01/21/22 07:15 89 32 H 79/58 01/21/22 07:10 100 01/21/22 07:06 100 01/21/22 07:00 93 28 H 64/51 01/21/22 06:45 84 24 81/48 100 01/21/22 06:30 81 36 H 75/52 95 01/21/22 06:15 77 35 H 74/44 99 01/21/22 06:00 71 32 H 80/57 100 01/21/22 05:45 68 28 H 75/52 100 01/21/22 05:30 67 27 H 72/53 100 01/21/22 05:15 67 27 H 62/46 100 01/21/22 05:00 62 26 H 73/50 99 01/21/22 04:45 61 20 82/57 100 01/21/22 04:30 60 14 90/62 100 01/21/22 04:15 58 L 23 86/56 100 01/21/22 04:10 58 L 27 H 69/47 99 01/21/22 04:05 95.1 F L 55 L 32 H 68/49 92 L 01/21/22 04:00 58 L 14 72/50 01/21/22 03:58 26 H 01/21/22 01:40 55 L 16 173/85 100 01/21/22 01:35 56 L 16 171/84 100 01/21/22 01:30 57 L 18 176/87 01/21/22 01:25 56 L 6 L 183/99 01/21/22 01:20 58 L 27 H 144/104 100 01/21/22 01:10 52 L 18 102/71 100 01/21/22 00:59 98.3 F 53 L 16 102/71 97 Intake and Output 01/20/22 01/21/22 01/21/22 22:59 06:59 14:59 Intake Total 1284.311 156.858 Output Total 0 0 Balance 1284.311 156.858 Intake: IV 1030 75 Sodium Chloride 0.9% 1, 150 75 000 ml In Empty Bag 1 bag @ 75 mls/hr IV .[id number] [facility] Rx#:[id number] Intake, IV Titration 254.311 81.858 Amount Norepinephrine 4 mg In 79.311 81.858 Sodium Chloride 0.9% 250 ml @ 0.03 MCG/KG/MIN 7. 518 mls/hr IV .Q24H [facility] Rx#:[id number] Potassium Chloride 10 meq 100 In Water For Injection 1 100ml.bag @ 100 mls/hr IVPB Q1H [facility] Rx#: [id number] Sodium Chloride 0.9% 1, 75 000 ml In Empty Bag 1 bag @ 75 mls/hr IV .[id number] [facility] Rx#:[id number] Output: Urine 0 0 Other: Weight 65.771 kg Results - Lab Results Most recent lab results Calcium 8.7 mg/dL (8.4-10.2) 01/21/22 08:09 Magnesium 2.8 mg/dL (1.6-2.3) H 01/21/22 08:09 01/21/22 08:09 01/21/22 08:09 Assessment and Plan Plan: assessment: 1. End-stage renal disease maintained on hemodialysis on Monday schedule via left upper extremity AV fistula. 2. Acute UT status post stenting of the LAD 01/20/2022. 3. Chronic hyperkalemia maintained on veltassa outpatient. 4. Concern for GI bleed. Hemoglobin 7.2 today. 5. Metabolic acidosis secondary to chronic kidney disease. 6. Hypertension with chronic kidney disease. Currently blood pressure low vasopressor support. 7. Chronic kidney disease mineral bone disease. Plan: Hemodialysis tomorrow. Add lokelma. Change fluids to bicarb drip. Follow-up ABG. Follow-up CAT scan of the brain and abdomen as well as echocardiogram. Wean FiO2. Repeat BMP this afternoon. Check iron studies. Add Aranesp. Monitor hemoglobin and transfuse as needed. Thank you for the consultation. I will continue to follow the patient with you during his hospital stay.
[2022-01-21] MEDS ORDERED: FAMOTIDINE 20 MG/2 ML VIAL IV SCH (09:00)
[2022-01-21] MEDS ORDERED: DEXTROSE 5% IN WATER 1,000 ML with SODIUM BICARB (1 MEQ/ML) 150 ML IV SCH (09:00)
[2022-01-21] MEDS ORDERED: PIPERACILLIN-TAZOBACTAM 3.375 GM in SODIUM CHLORIDE 0.9% 100 ML IVPB SCH (09:00)
[2022-01-21] MEDS ORDERED: DARBEPOETIN ALFA 40 MCG/0.4 ML SYRINGE SQ SCH (09:00)
[2022-01-21] MEDS ORDERED: SODIUM ZIRCONIUM CYCLOSILICATE 10 GM PACKET PO SCH (09:00)
[2022-01-21] MEDS ORDERED: ASPIRIN 81 MG PO SCH (09:00)
[2022-01-21 09:10] LABS: ABG Base Excess -12.4 mmol/L; ABG HCO3 15 mmol/L (21-25); ABG Oxygen Saturation 99.5 % (94-97); ABG PCO2 35 mmHg (35-45); ABG PH 7.24 (7.35-7.45); ABG PO2 209 mmHg (83-108); ABG TCO2 16 mmol/L (19-24)
[2022-01-21] MEDS ORDERED: DEXTROSE 50% SYRINGE 50 ML IVP STA (09:11)
[2022-01-21] MEDS ORDERED: INSULIN REGULAR 100 UNIT/ML VIAL (IV) IV ONE (09:11)
[2022-01-21] MEDS ORDERED: SODIUM BICARB 8.4% 50 ML SYR (1 MEQ/ML) IV STA ×2 (09:12→18:01)
[2022-01-21 09:14] LABS: Allen Test Performed? no
[2022-01-21 09:16] LABS: Basophils % (A) 0 %; Calcium 8.1 mg/dL (8.4-10.2); Eosinophils % (A) 0 %; Hypochromasia Marked; Lymphocytes # (A) 0.8 k/uL (1.0-4.8); Lymphocytes % (A) 15 %; MCH 33.7 pg (25.0-35.0); MCHC 32.1 g/dL (31.0-37.0); Macrocytosis Moderate; Mean Platelet Volume 10.1; Monocytes # (A) 0.2 k/uL (0-1.0); Monocytes % (A) 4 %; Neutrophils # (A) 4.4 k/uL (1.3-7.7); Neutrophils % (A) 80 %; Platelet Count 122 k/uL (150-450); Potassium 5.3 mmol/L (3.5-5.1); RBC 1.76 m/uL (4.30-5.90); RDW 13.9 % (11.5-15.5); WBC 5.4 k/uL (3.8-10.6)
[2022-01-21 09:19] LABS: HCT 18.4 % (39.0-53.0); HGB 5.9 gm/dL (13.0-17.5)
[2022-01-21] MEDS ORDERED: PANTOPRAZOLE 40 MG/10 ML VIAL IVP SCH (09:45)
[2022-01-21 10:06] LABS: Glucose,Whole Blood 248 mg/dL (70-110)
[2022-01-21] MEDS ORDERED: SODIUM CHLORIDE 0.9% 1,000 ML IV ONE (10:06)
--- NOTE | 2022-01-21 11:02 | P.PN ---
Subjective Progress Note Date: 01/21/22 Patient is a 66-year-old male with ESRD on hemodialysis, hypertension, hyperlipidemia, and aortic stenosis who had presented to the emergency room with complaints of chest discomfort. The patient's EKG performed in the emergency room was concerning for ST elevation AR for which cardiology was immediately consulted and the patient was taken for cardiac catheterization which revealed a proximal LAD occlusion, for which 2 stents were placed. He was hypotensive post cath and was initiated on the affected by cardiology. At approximately 6:30 this morning patient had worsening of his condition. His blood pressure was low. He required intubation. He had a bedside echocardiogram performed which per verbal report showed an ejection fraction of 30-35%. Upon placement of O G- tube it was noted that he had geraldine blood return. Initial hemoglobin on presentation had been 9.1 and on repeat was 5.9. Potassium 5.3. He required increasing doses of levothyroid and ultimately vasopressin. 2 units of packed red blood cells were ordered and the patient was placed on IV Protonix. Nephrology placed him on a hyperkalrmia cocktail. Patient seen and examined at bedside. Events as listed above. Son present at bedside and updated on patient's status. We discussed that should his bleeding. Continue to require escalating vasopressors will likely from this bleed. General:ill appearing, miximal distress, appears at stated age Derm: warm, dry, left arm tortous fistual Head: atraumatic, normocephalic, symmetric Eyes: EOMI, no lid lag, anicteric sclera Mouth: no lip lesion, mucus membranes moist Cardiovascular: S1S2 reg, no murmur, positive posterior tibial pulse bilateral, Lungs: Course bs bilateral, no rhonchi, no rales , no accessory muscle use, NG canister with geraldine blood Abdominal: soft, nontender to palpation, no guarding, no appreciable organomegaly Ext: no gross muscle atrophy, no edema, no contractures Neuro: intubated on vent Psych: intubated on vent Assessment/plan: Acute GI bleed, suspect upper History of prior GI bleed 10/31 Hypovolemic shock - Levo and vaso - 2 units of pRBC, Serial CBC - add PPI - follow BP - D/W Dr. Bansal who recommneds transfer to a facility with GI services available. D/W Dr. Olvera who states that patient is currently not stable for transfer due to increaseing vaso pressor requirement STEMI Systolic Cardiomyopathy -S/P PCI to the LAD - Plavix and ASA - cardio recs - not a candidate for antiheart failrue therapy due to hypotension ESRD on HD Hyperkalemia -bicarb gtt, lokalemia, insulin, glucose - nephrology recs Thrombocytopenia - chronic at baseline Poor over all prognosis. No stable enough for transfer and surgery states needs GI due to type of bleed. DVT prophylaxis: SCDs Discussed with: son, nursing, Dr. Olvera, Dr. Vidal Anticipated discharge: pending clinical course Anticipated discharge place: pending clinical course A total of 65 minutes was spent on the care of this complex patient more than 50% of the time was spent in counseling and care coordination. Objective - Vital Signs Vital signs: Vital Signs Temp 95.1 F L 01/21/22 04:05 Pulse 72 01/21/22 10:57 Resp 25 H 01/21/22 10:57 BP 129/50 01/21/22 10:57 Pulse Ox 98 01/21/22 10:57 FiO2 50 01/21/22 10:37 Intake & Output 01/20/22 01/21/22 01/21/22 18:59 06:59 18:59 Intake Total 1284.311 422.093 Output Total 0 0 Balance 1284.311 422.093 Weight 65.771 kg 65.771 kg Intake: IV 1030 75 Sodium Chloride 0.9% 1, 150 75 000 ml In Empty Bag 1 bag @ 75 mls/hr IV .[id number] MARIAH Rx#:[id number] Intake, IV Titration 254.311 347.093 Amount Norepinephrine 4 mg In 79.311 347.093 Sodium Chloride 0.9% 250 ml @ 0.03 MCG/KG/MIN 7. 518 mls/hr IV .Q24H MARIAH Rx#:[id number] Potassium Chloride 10 meq 100 In Water For Injection 1 100ml.bag @ 100 mls/hr IVPB Q1H MARIAH Rx#: [id number] Sodium Chloride 0.9% 1, 75 000 ml In Empty Bag 1 bag @ 75 mls/hr IV .[id number] MARIAH Rx#:[id number] Blood Product 0 Rc Pheresis 2 As3 Unit 0 [id number] Output: Urine 0 0 - Labs CBC & Chem 7: 01/21/22 08:50 01/21/22 08:50 Labs: Abnormal Lab Results - Last 24 Hours (Table) 01/21/22 01/21/22 01/21/22 Range/Units 01:05 01:05 01:05 RBC 2.73 L (4.30-5.90) m/uL Hgb 9.1 L (13.0-17.5) gm/dL Hct 26.4 L (39.0-53.0) % MCV (80.0-100.0) fL MCHC (31.0-37.0) g/dL Plt Count 107 L (150-450) k/uL Lymphocytes # 0.6 L (1.0-4.8) k/uL Macrocytosis PT 12.5 H (9.0-12.0) sec INR 1.2 H (<1.2) ABG pH (7.35-7.45) ABG pO2 (83-108) mmHg ABG HCO3 (21-25) mmol/L ABG Total CO2 (19-24) mmol/L ABG O2 Saturation (94-97) % Potassium 3.4 L (3.5-5.1) mmol/L Carbon Dioxide (22-30) mmol/L BUN 28 H (9-20) mg/dL Creatinine 4.60 H (0.66-1.25) mg/dL Glucose 118 H (74-99) mg/dL POC Glucose (mg/dL) (70-110) mg/dL Calcium 7.9 L (8.4-10.2) mg/dL Magnesium (1.6-2.3) mg/dL Total Protein 5.4 L (6.3-8.2) g/dL Albumin 3.3 L (3.5-5.0) g/dL Amylase 126 H (30-110) U/L 01/21/22 01/21/22 01/21/22 Range/Units 03:57 06:56 08:09 RBC (4.30-5.90) m/uL Hgb (13.0-17.5) gm/dL Hct (39.0-53.0) % MCV (80.0-100.0) fL MCHC (31.0-37.0) g/dL Plt Count (150-450) k/uL Lymphocytes # (1.0-4.8) k/uL Macrocytosis PT (9.0-12.0) sec INR (<1.2) ABG pH (7.35-7.45) ABG pO2 (83-108) mmHg ABG HCO3 (21-25) mmol/L ABG Total CO2 (19-24) mmol/L ABG O2 Saturation (94-97) % Potassium 5.6 H (3.5-5.1) mmol/L Carbon Dioxide 15 L (22-30) mmol/L BUN 29 H (9-20) mg/dL Creatinine 6.17 H (0.66-1.25) mg/dL Glucose 181 H (74-99) mg/dL POC Glucose (mg/dL) 205 H 255 H (70-110) mg/dL Calcium (8.4-10.2) mg/dL Magnesium 2.8 H (1.6-2.3) mg/dL Total Protein 4.8 L (6.3-8.2) g/dL Albumin 3.1 L (3.5-5.0) g/dL Amylase (30-110) U/L 01/21/22 01/21/22 01/21/22 Range/Units 08:09 08:50 08:50 RBC 2.18 L 1.76 L (4.30-5.90) m/uL Hgb 7.2 L D 5.9 L* (13.0-17.5) gm/dL Hct 23.8 L 18.4 L* (39.0-53.0) % MCV 108.8 H D 105.0 H (80.0-100.0) fL MCHC 30.3 L (31.0-37.0) g/dL Plt Count 142 L 122 L (150-450) k/uL Lymphocytes # 0.9 L 0.8 L (1.0-4.8) k/uL Macrocytosis Marked A PT (9.0-12.0) sec INR (<1.2) ABG pH (7.35-7.45) ABG pO2 (83-108) mmHg ABG HCO3 (21-25) mmol/L ABG Total CO2 (19-24) mmol/L ABG O2 Saturation (94-97) % Potassium 5.3 H (3.5-5.1) mmol/L Carbon Dioxide 15 L (22-30) mmol/L BUN 29 H (9-20) mg/dL Creatinine 5.75 H (0.66-1.25) mg/dL Glucose 103 H (74-99) mg/dL POC Glucose (mg/dL) (70-110) mg/dL Calcium 8.1 L (8.4-10.2) mg/dL Magnesium (1.6-2.3) mg/dL Total Protein (6.3-8.2) g/dL Albumin (3.5-5.0) g/dL Amylase (30-110) U/L 01/21/22 01/21/22 Range/Units 09:06 10:04 RBC (4.30-5.90) m/uL Hgb (13.0-17.5) gm/dL Hct (39.0-53.0) % MCV (80.0-100.0) fL MCHC (31.0-37.0) g/dL Plt Count (150-450) k/uL Lymphocytes # (1.0-4.8) k/uL Macrocytosis PT (9.0-12.0) sec INR (<1.2) ABG pH 7.24 L (7.35-7.45) ABG pO2 209 H (83-108) mmHg ABG HCO3 15 L (21-25) mmol/L ABG Total CO2 16 L (19-24) mmol/L ABG O2 Saturation 99.5 H (94-97) % Potassium (3.5-5.1) mmol/L Carbon Dioxide (22-30) mmol/L BUN (9-20) mg/dL Creatinine (0.66-1.25) mg/dL Glucose (74-99) mg/dL POC Glucose (mg/dL) 248 H (70-110) mg/dL Calcium (8.4-10.2) mg/dL Magnesium (1.6-2.3) mg/dL Total Protein (6.3-8.2) g/dL Albumin (3.5-5.0) g/dL Amylase (30-110) U/L
[2022-01-21 11:34] VITALS: BMI 22.7
[2022-01-21] MEDS: VASOPRESSIN 20 UNIT in SODIUM CHLORIDE 0.9% 50 ML IV SCH ×2 (11:34→17:58)
--- NOTE | 2022-01-21 11:51 | P.GSCN ---
History of Present Illness Consult date: 01/21/22 History of present illness: CHIEF COMPLAINT: Chest pain Reason for consult GI bleed HISTORY OF PRESENT ILLNESS: This is a 66-year-old male who presented with chest pain with evidence of an acute STEMI. He required emergent heart catheterization with stent placement to the LAD. He was placed on aspirin and Plavix. He also has been on IV heparin. Patient became hypotensive and did require to be intubated. His OG tube had shown Abdifatah blood. Hemoglobin on admission was 9.1 has decreased to 5.9. He is on levo and vasopressin for his hypotension. They have started IV Protonix and 2 units of blood have been ordered. Surgical service consulted in regards to GI bleed. Patient seen and examined with Dr. Vidal PAST MEDICAL HISTORY: End-stage renal disease on hemodialysis, duodenal ulcer, hypertension PAST SURGICAL HISTORY: See below MEDICATIONS: See below ALLERGIES: See below SOCIAL HISTORY: No illicit drug use. REVIEW OF SYSTEMS: CONSTITUTIONAL: Denies fever or chills. HEENT: Denies blurred vision, vision changes, or eye pain. Denies hemoptysis CARDIOVASCULAR: Denies chest pain or pressure. RESPIRATORY: No shortness of breath. GASTROINTESTINAL: See HPI for pertinent findings HEMATOLOGIC: Denies bleeding disorders. GENITOURINARY: Denies any blood in urine or increased urinary frequency. SKIN: Denies pruitis. Denies rash. PHYSICAL EXAM: VITAL SIGNS: Reviewed GENERAL: Intubated and on mechanical ventilation HEENT: No sclera icterus. Extraocular movements grossly intact. Moist buccal mucosa. Head is atraumatic, normocephalic. No nasal drainage. ABDOMEN: Soft. Nondistended. Nontender LABORATORY DATA: WBC is 5.4 hemoglobin down from 7.2-5.9 platelets 122 Sodium is 138 potassium 5.3 creatinine 5.75 mg 2.8 IMAGING: ASSESSMENT: 1. Active GI bleed 2. Acute blood loss anemia 3. Acute non-ST elevated NH status post stenting and on blood thinners 4. End-stage renal disease on hemodialysis 5. History of prior GI bleed in October 2020 with Duodenal ulcer PLAN: -Recommend transferring patient to tertiary care center due to the active GI bleed and no GI coverage -Hold all ANTICOAGULATION, Plavix, aspirin and subcu heparin -Agree with blood transfusion -Continue supportive care -Continue ICU management Thank you for this consultation Physician Business Transformation Manager note has been reviewed by physicianTimbo Underwooding provider agrees with the documented findings, assessment, and plan of care. Past Medical History Past Medical History: Cancer, Hypertension Additional Past Medical History / Comment(s): DIALYSIS T,TH,SA; pt. is a poor historian. pt states he sees Dr. Chavis, but unsure of location of cancer. History of Any Multi-Drug Resistant Organisms: None Reported Additional Past Surgical History / Comment(s): FISTULA, right side kidney removal. Past Psychological History: No Psychological Hx Reported Smoking Status: Former smoker, Unknown if ever smoked Past Alcohol Use History: None Reported Past Drug Use History: None Reported - Past Family History Mother Family Medical History: Dementia, Hypertension Medications and Allergies Home Medications Medication Instructions Recorded Confirmed Type amLODIPine [Norvasc] 10 mg PO DAILY@0900 02/20/15 01/21/22 History Doxazosin [Cardura] 2 mg PO BID@0900,1700 10/15/20 01/21/22 History carvediloL [Coreg] 25 mg PO BID@0900,1700 10/15/20 01/21/22 History cloNIDine HCL [Catapres] 0.3 mg PO TID@0600,1400,2200 10/15/20 01/21/22 History Aspirin 81 mg PO DAILY@0900 10/24/20 01/21/22 History Saba-Dwight (U-Pqaiqvu-T-Folic-Acid) 1 tab PO DAILY@0900 10/24/20 01/21/22 History Sevelamer [Renvela] 1,600 mg PO TID-W/MEALS 10/24/20 01/21/22 History Auryxia 1gm/210mg 1 - 2 tab PO AC-TID 01/21/22 01/21/22 History Auryxia 1gm/210mg 1 tab PO DIRECTED PRN 01/21/22 01/21/22 History Pantoprazole [Protonix] 40 mg PO DAILY 01/21/22 01/21/22 History Allergies Allergy/AdvReac Type Severity Reaction Status Date / Time Sulfa (Sulfonamide Allergy Rash/Hives Verified 01/21/22 10:01 Antibiotics) Surgical - Exam Vital Signs Temp Pulse Resp BP Pulse Ox 98.3 F 53 L 16 102/71 97 01/21/22 00:59 01/21/22 00:59 01/21/22 00:59 01/21/22 00:59 01/21/22 00:59 Results - Labs 01/21/22 08:50 01/21/22 08:50 Abnormal Lab Results - Last 24 Hours (Table) 01/21/22 01/21/22 01/21/22 Range/Units 01:05 01:05 01:05 RBC 2.73 L (4.30-5.90) m/uL Hgb 9.1 L (13.0-17.5) gm/dL Hct 26.4 L (39.0-53.0) % MCV (80.0-100.0) fL MCHC (31.0-37.0) g/dL Plt Count 107 L (150-450) k/uL Lymphocytes # 0.6 L (1.0-4.8) k/uL Macrocytosis PT 12.5 H (9.0-12.0) sec INR 1.2 H (<1.2) ABG pH (7.35-7.45) ABG pO2 (83-108) mmHg ABG HCO3 (21-25) mmol/L ABG Total CO2 (19-24) mmol/L ABG O2 Saturation (94-97) % Potassium 3.4 L (3.5-5.1) mmol/L Carbon Dioxide (22-30) mmol/L BUN 28 H (9-20) mg/dL Creatinine 4.60 H (0.66-1.25) mg/dL Glucose 118 H (74-99) mg/dL POC Glucose (mg/dL) (70-110) mg/dL Calcium 7.9 L (8.4-10.2) mg/dL Magnesium (1.6-2.3) mg/dL Total Protein 5.4 L (6.3-8.2) g/dL Albumin 3.3 L (3.5-5.0) g/dL Amylase 126 H (30-110) U/L 01/21/22 01/21/22 01/21/22 Range/Units 03:57 06:56 08:09 RBC (4.30-5.90) m/uL Hgb (13.0-17.5) gm/dL Hct (39.0-53.0) % MCV (80.0-100.0) fL MCHC (31.0-37.0) g/dL Plt Count (150-450) k/uL Lymphocytes # (1.0-4.8) k/uL Macrocytosis PT (9.0-12.0) sec INR (<1.2) ABG pH (7.35-7.45) ABG pO2 (83-108) mmHg ABG HCO3 (21-25) mmol/L ABG Total CO2 (19-24) mmol/L ABG O2 Saturation (94-97) % Potassium 5.6 H (3.5-5.1) mmol/L Carbon Dioxide 15 L (22-30) mmol/L BUN 29 H (9-20) mg/dL Creatinine 6.17 H (0.66-1.25) mg/dL Glucose 181 H (74-99) mg/dL POC Glucose (mg/dL) 205 H 255 H (70-110) mg/dL Calcium (8.4-10.2) mg/dL Magnesium 2.8 H (1.6-2.3) mg/dL Total Protein 4.8 L (6.3-8.2) g/dL Albumin 3.1 L (3.5-5.0) g/dL Amylase (30-110) U/L 01/21/22 01/21/22 01/21/22 Range/Units 08:09 08:50 08:50 RBC 2.18 L 1.76 L (4.30-5.90) m/uL Hgb 7.2 L D 5.9 L* (13.0-17.5) gm/dL Hct 23.8 L 18.4 L* (39.0-53.0) % MCV 108.8 H D 105.0 H (80.0-100.0) fL MCHC 30.3 L (31.0-37.0) g/dL Plt Count 142 L 122 L (150-450) k/uL Lymphocytes # 0.9 L 0.8 L (1.0-4.8) k/uL Macrocytosis Marked A PT (9.0-12.0) sec INR (<1.2) ABG pH (7.35-7.45) ABG pO2 (83-108) mmHg ABG HCO3 (21-25) mmol/L ABG Total CO2 (19-24) mmol/L ABG O2 Saturation (94-97) % Potassium 5.3 H (3.5-5.1) mmol/L Carbon Dioxide 15 L (22-30) mmol/L BUN 29 H (9-20) mg/dL Creatinine 5.75 H (0.66-1.25) mg/dL Glucose 103 H (74-99) mg/dL POC Glucose (mg/dL) (70-110) mg/dL Calcium 8.1 L (8.4-10.2) mg/dL Magnesium (1.6-2.3) mg/dL Total Protein (6.3-8.2) g/dL Albumin (3.5-5.0) g/dL Amylase (30-110) U/L 01/21/22 01/21/22 Range/Units 09:06 10:04 RBC (4.30-5.90) m/uL Hgb (13.0-17.5) gm/dL Hct (39.0-53.0) % MCV (80.0-100.0) fL MCHC (31.0-37.0) g/dL Plt Count (150-450) k/uL Lymphocytes # (1.0-4.8) k/uL Macrocytosis PT (9.0-12.0) sec INR (<1.2) ABG pH 7.24 L (7.35-7.45) ABG pO2 209 H (83-108) mmHg ABG HCO3 15 L (21-25) mmol/L ABG Total CO2 16 L (19-24) mmol/L ABG O2 Saturation 99.5 H (94-97) % Potassium (3.5-5.1) mmol/L Carbon Dioxide (22-30) mmol/L BUN (9-20) mg/dL Creatinine (0.66-1.25) mg/dL Glucose (74-99) mg/dL POC Glucose (mg/dL) 248 H (70-110) mg/dL Calcium (8.4-10.2) mg/dL Magnesium (1.6-2.3) mg/dL Total Protein (6.3-8.2) g/dL Albumin (3.5-5.0) g/dL Amylase (30-110) U/L Diabetes panel 01/21/22 01/21/22 01/21/22 Range/Units 01:05 08:09 08:50 Sodium 140 142 138 (137-145) mmol/L Potassium 3.4 L 5.6 H 5.3 H (3.5-5.1) mmol/L Chloride 105 103 107 (98-107) mmol/L Carbon Dioxide 27 15 L 15 L (22-30) mmol/L BUN 28 H 29 H 29 H (9-20) mg/dL Creatinine 4.60 H 6.17 H 5.75 H (0.66-1.25) mg/dL Glucose 118 H 181 H 103 H (74-99) mg/dL Calcium 7.9 L 8.7 8.1 L (8.4-10.2) mg/dL AST 17 20 (17-59) U/L ALT 15 17 (4-49) U/L Alkaline Phosphatase 91 89 (38-126) U/L Total Protein 5.4 L 4.8 L (6.3-8.2) g/dL Albumin 3.3 L 3.1 L (3.5-5.0) g/dL Calcium panel 01/21/22 01/21/22 01/21/22 Range/Units 01:05 08:09 08:50 Calcium 7.9 L 8.7 8.1 L (8.4-10.2) mg/dL Albumin 3.3 L 3.1 L (3.5-5.0) g/dL Pituitary panel 01/21/22 01/21/22 01/21/22 Range/Units 01:05 08:09 08:50 Sodium 140 142 138 (137-145) mmol/L Potassium 3.4 L 5.6 H 5.3 H (3.5-5.1) mmol/L Chloride 105 103 107 (98-107) mmol/L Carbon Dioxide 27 15 L 15 L (22-30) mmol/L BUN 28 H 29 H 29 H (9-20) mg/dL Creatinine 4.60 H 6.17 H 5.75 H (0.66-1.25) mg/dL Glucose 118 H 181 H 103 H (74-99) mg/dL Calcium 7.9 L 8.7 8.1 L (8.4-10.2) mg/dL Adrenal panel 01/21/22 01/21/22 01/21/22 Range/Units 01:05 08:09 08:50 Sodium 140 142 138 (137-145) mmol/L Potassium 3.4 L 5.6 H 5.3 H (3.5-5.1) mmol/L Chloride 105 103 107 (98-107) mmol/L Carbon Dioxide 27 15 L 15 L (22-30) mmol/L BUN 28 H 29 H 29 H (9-20) mg/dL Creatinine 4.60 H 6.17 H 5.75 H (0.66-1.25) mg/dL Glucose 118 H 181 H 103 H (74-99) mg/dL Calcium 7.9 L 8.7 8.1 L (8.4-10.2) mg/dL Total Bilirubin 0.4 0.8 (0.2-1.3) mg/dL AST 17 20 (17-59) U/L ALT 15 17 (4-49) U/L Alkaline Phosphatase 91 89 (38-126) U/L Total Protein 5.4 L 4.8 L (6.3-8.2) g/dL Albumin 3.3 L 3.1 L (3.5-5.0) g/dL
[2022-01-21] MEDS ORDERED: NOREPINEPHRINE 8 MG in SODIUM CHLORIDE 0.9% 250 ML IV SCH (12:15)
[2022-01-21] MEDS ORDERED: NOREPINEPHRINE 32 MG in SODIUM CHLORIDE 0.9% 218 ML IV SCH (12:15)
--- NOTE | 2022-01-21 12:44 | P.CNPUL ---
History of Present Illness Consult date: 01/21/22 Requesting physician: Mally Morales Reason for consult: other (Acute hypoxic respiratory failure and hypotension, acute ST elevation myocardial infarction) Chief complaint: Chest pain History of present illness: This is a 66-year-old white male with history of end-stage renal disease, on hemodialysis, history of duodenal ulcer, hypertension, patient presented yesterday with mostly chest pain and acute ST elevation myocardial infarction. Patient underwent emergent cardiac catheterization, and he had stenting of the LAD. Patient was sent to the ICU on aspirin and Plavix, and he was on heparin prior to his cardiac catheterization. Apparently in the ICU the patient became hypotensive, placed on norepinephrine, required intubation and mechanical ventilation, and he also developed an upper episode of upper GI bleeding with dark blood noted in the orogastric tube which was placed at the time of intubation. Hemoglobin initially was 9.1, went down to 5.9. Patient received so far 2 units of packed RBCs, he also received Protonix and I have recommended immediate and stat GI consultation and general surgery consultation. There is no GI coverage, and the patient will be seen by surgery on consultation. In the meantime the patient is receiving fluid boluses he will be receiving pressors, and we'll arrange for blood to be transfused as soon as possible. We'll continue to monitor his CBC and hemoglobin. And transfuse accordingly. At this point in time, patient is not stable enough to transfer to a tertiary care center for GI evaluation. ABG on 50% FiO2, tidal volume of 400, assist control rate of 18 with a PEEP of 8, showed a pO2 of 209 pCO2 35 pH of 7.24, patient received 1 amp of sodium bicarb, and is already on bicarb drip as ordered by nephrology. Serum cortisol level is 21. Review of Systems ROS unobtainable: due to endotracheal tube Past Medical History Past Medical History: Cancer, Hypertension Additional Past Medical History / Comment(s): DIALYSIS T,TH,SA; pt. is a poor historian. pt states he sees Dr. Chavis, but unsure of location of cancer. History of Any Multi-Drug Resistant Organisms: None Reported Additional Past Surgical History / Comment(s): FISTULA, right side kidney removal. Past Psychological History: No Psychological Hx Reported Smoking Status: Former smoker, Unknown if ever smoked Past Alcohol Use History: None Reported Past Drug Use History: None Reported - Past Family History Mother Family Medical History: Dementia, Hypertension Medications and Allergies Home Medications Medication Instructions Recorded Confirmed Type amLODIPine [Norvasc] 10 mg PO DAILY@0900 02/20/15 01/21/22 History Doxazosin [Cardura] 2 mg PO BID@0900,1700 10/15/20 01/21/22 History carvediloL [Coreg] 25 mg PO BID@0900,1700 10/15/20 01/21/22 History cloNIDine HCL [Catapres] 0.3 mg PO TID@0600,1400,2200 10/15/20 01/21/22 History Aspirin 81 mg PO DAILY@0900 10/24/20 01/21/22 History Saba-Dwight (I-Oicmthl-L-Folic-Acid) 1 tab PO DAILY@0900 10/24/20 01/21/22 History Sevelamer [Renvela] 1,600 mg PO TID-W/MEALS 10/24/20 01/21/22 History Auryxia 1gm/210mg 1 - 2 tab PO AC-TID 01/21/22 01/21/22 History Auryxia 1gm/210mg 1 tab PO DIRECTED PRN 01/21/22 01/21/22 History Pantoprazole [Protonix] 40 mg PO DAILY 01/21/22 01/21/22 History Allergies Allergy/AdvReac Type Severity Reaction Status Date / Time Sulfa (Sulfonamide Allergy Rash/Hives Verified 01/21/22 10:01 Antibiotics) Physical Exam Vitals: Vital Signs Temp Pulse Resp BP Pulse Ox FiO2 01/21/22 12:15 71 17 100 01/21/22 12:12 94 F L 70 19 120/51 100 01/21/22 12:00 94.0 F L 73 19 100 50 01/21/22 11:46 73 19 135/56 100 01/21/22 11:45 73 37 H 100 01/21/22 11:30 72 22 100 01/21/22 11:15 71 24 100 01/21/22 11:10 70 21 100 01/21/22 11:00 72 23 99 01/21/22 10:57 72 25 H 129/50 98 01/21/22 10:50 67 26 H 98 01/21/22 10:40 67 17 98 01/21/22 10:37 72 25 H 134/51 98 50 01/21/22 10:30 66 27 H 98 01/21/22 10:20 65 20 98 01/21/22 10:10 65 22 98 01/21/22 10:00 62 22 99 01/21/22 09:50 68 24 98 01/21/22 09:40 66 27 H 99 01/21/22 09:30 62 18 100 01/21/22 09:20 62 18 100 01/21/22 09:10 64 18 100 01/21/22 09:00 67 21 98/40 96 01/21/22 08:50 68 25 H 104/39 50 01/21/22 08:40 66 19 105/43 97 01/21/22 08:30 68 17 107/38 01/21/22 08:20 69 24 112/40 98 01/21/22 08:10 75 31 H 113/46 01/21/22 08:00 70 26 H 122/46 100 01/21/22 07:50 70 25 H 89/62 97 01/21/22 07:30 75 31 H 87/47 01/21/22 07:16 100 01/21/22 07:15 89 32 H 79/58 01/21/22 07:10 100 01/21/22 07:06 100 01/21/22 07:00 93 28 H 64/51 01/21/22 06:45 84 24 81/48 100 01/21/22 06:30 81 36 H 75/52 95 01/21/22 06:15 77 35 H 74/44 99 01/21/22 06:00 71 32 H 80/57 100 01/21/22 05:45 68 28 H 75/52 100 01/21/22 05:30 67 27 H 72/53 100 01/21/22 05:15 67 27 H 62/46 100 01/21/22 05:00 62 26 H 73/50 99 01/21/22 04:45 61 20 82/57 100 01/21/22 04:30 60 14 90/62 100 01/21/22 04:15 58 L 23 86/56 100 01/21/22 04:10 58 L 27 H 69/47 99 01/21/22 04:05 95.1 F L 55 L 32 H 68/49 92 L 01/21/22 04:00 58 L 14 72/50 01/21/22 03:58 26 H 01/21/22 01:40 55 L 16 173/85 100 01/21/22 01:35 56 L 16 171/84 100 01/21/22 01:30 57 L 18 176/87 01/21/22 01:25 56 L 6 L 183/99 01/21/22 01:20 58 L 27 H 144/104 100 01/21/22 01:10 52 L 18 102/71 100 01/21/22 00:59 98.3 F 53 L 16 102/71 97 Intake and Output 01/20/22 01/21/22 01/21/22 22:59 06:59 14:59 Intake Total 8387.893 0963.159 Output Total 0 400 Balance 5818.135 7973.159 Intake: IV 1030 3125 Dextrose 5% in Water 1, 200 000 ml @ 50 mls/hr IV . Q23H MARIAH with Sodium Bicarb (1 Meq/ml) 150 ml Rx#:[id number] Piperacillin-Tazobactam 3 100 .375 gm In Sodium Chloride 0.9% 100 ml @ 25 mls/hr IVPB Q12HR MARIAH Rx #:[id number] Sodium Chloride 0.9% 1, 150 2575 000 ml In Empty Bag 1 bag @ 75 mls/hr [id number] Rx#:[id number] Vancomycin 1,250 mg In 250 Sodium Chloride 0.9% 250 ml @ 125 mls/hr IVPB ONCE ONE Rx#:[id number] Intake, IV Titration 254.311 629.159 Amount Norepinephrine 4 mg In 79.311 629.159 Sodium Chloride 0.9% 250 ml @ 0.03 MCG/KG/MIN 7. 518 mls/hr IV .Q24H MARIAH Rx#:[id number] Potassium Chloride 10 meq 100 In Water For Injection 1 100ml.bag @ 100 mls/hr IVPB Q1H MARIAH Rx#: [id number] Sodium Chloride 0.9% 1, 75 000 ml In Empty Bag 1 bag @ 75 mls/hr IV .[id number] MARIAH Rx#:[id number] Blood Product 275 Rc As-1 Unit 0 [id number] Rc Pheresis 2 As3 Unit 275 [id number] Output: Gastric Drainage 400 Urine 0 0 Other: # Voids 0 Weight 65.771 kg 65.771 kg ABP, PAP, CO, CI - Last 8 Hours Arterial Blood Pressure 124/52 Arterial Blood Pressure 124/52 Arterial Blood Pressure 134/56 Arterial Blood Pressure 116/46 Arterial Blood Pressure 119/48 Arterial Blood Pressure 117/47 Arterial Blood Pressure 124/49 Arterial Blood Pressure 130/50 Arterial Blood Pressure 140/52 Arterial Blood Pressure 134/51 Arterial Blood Pressure 116/45 Arterial Blood Pressure 123/47 Arterial Blood Pressure 106/43 Arterial Blood Pressure 111/45 Arterial Blood Pressure 128/48 Arterial Blood Pressure 101/41 Arterial Blood Pressure 91/37 Arterial Blood Pressure 66/34 Arterial Blood Pressure 72/37 Physical Exam: Revealed a 66-year-old white male frail, chronically ill, intubated and mechanically ventilated. On propofol, Head: Atraumatic, normocephalic. Endotracheal tube and orogastric tube are intact evidence of dark blood coming out of the orogastric tube. HEENT: Pale conjunctivae, [Neck is supple.] [No neck masses.] [No thyromegaly.] [No JVD.] Chest: [Symmetrical chest expansion, patient has a barrel chest, nor rhonchi no wheezes. Cardiac Exam: [Normal S1 and S2, no S3 gallop, 2/6 systolic murmur thought the precordium. Abdomen: [Soft, nontender, no megaly, no rebound, no guarding, normal bowel sounds.] Extremities: [No clubbing, no edema, no cyanosis.] Patient is noted to have a very aneurysmal and large AV fistula in the left arm. Neurological Exam: Cannot assess, patient is sedated. Unresponsive to any stimu li. Psychiatric: Could not assess. Skin: No rashes. Musculoskeletal: No deformities. The only deformity noted is his aneurysmal left AV fistula. Results - Laboratory Findings CBC and BMP: 01/21/22 08:50 01/21/22 08:50 ABG ABG pH 7.24 (7.35-7.45) L 01/21/22 09:06 ABG pCO2 35 mmHg (35-45) 01/21/22 09:06 ABG pO2 209 mmHg (83-108) H 01/21/22 09:06 ABG O2 Saturation 99.5 % (94-97) H 01/21/22 09:06 PT/INR, D-dimer PT 12.5 sec (9.0-12.0) H 01/21/22 01:05 INR 1.2 (<1.2) H 01/21/22 01:05 Abnormal lab findings: Abnormal Labs 01/21/22 01/21/22 01/21/22 01:05 01:05 01:05 RBC 2.73 L Hgb 9.1 L Hct 26.4 L MCV MCHC Plt Count 107 L Lymphocytes # 0.6 L Macrocytosis PT 12.5 H INR 1.2 H ABG pH ABG pO2 ABG HCO3 ABG Total CO2 ABG O2 Saturation Potassium 3.4 L Carbon Dioxide BUN 28 H Creatinine 4.60 H Glucose 118 H POC Glucose (mg/dL) Calcium 7.9 L Magnesium Total Protein 5.4 L Albumin 3.3 L Amylase 126 H Crossmatch 01/21/22 01/21/22 01/21/22 03:57 06:56 08:09 RBC Hgb Hct MCV MCHC Plt Count Lymphocytes # Macrocytosis PT INR ABG pH ABG pO2 ABG HCO3 ABG Total CO2 ABG O2 Saturation Potassium 5.6 H Carbon Dioxide 15 L BUN 29 H Creatinine 6.17 H Glucose 181 H POC Glucose (mg/dL) 205 H 255 H Calcium Magnesium 2.8 H Total Protein 4.8 L Albumin 3.1 L Amylase Crossmatch 01/21/22 01/21/22 01/21/22 08:09 08:50 08:50 RBC 2.18 L 1.76 L Hgb 7.2 L D 5.9 L* Hct 23.8 L 18.4 L* MCV 108.8 H D 105.0 H MCHC 30.3 L Plt Count 142 L 122 L Lymphocytes # 0.9 L 0.8 L Macrocytosis Marked A PT INR ABG pH ABG pO2 ABG HCO3 ABG Total CO2 ABG O2 Saturation Potassium Carbon Dioxide BUN Creatinine Glucose POC Glucose (mg/dL) Calcium Magnesium Total Protein Albumin Amylase Crossmatch See Detail 01/21/22 01/21/22 01/21/22 08:50 09:06 10:04 RBC Hgb Hct MCV MCHC Plt Count Lymphocytes # Macrocytosis PT INR ABG pH 7.24 L ABG pO2 209 H ABG HCO3 15 L ABG Total CO2 16 L ABG O2 Saturation 99.5 H Potassium 5.3 H Carbon Dioxide 15 L BUN 29 H Creatinine 5.75 H Glucose 103 H POC Glucose (mg/dL) 248 H Calcium 8.1 L Magnesium Total Protein Albumin Amylase Crossmatch - Diagnostic Findings Chest x-ray: image reviewed (Chest x-ray was reviewed, no evidence of pulmonary edema, no evidence of pneumonia, endotracheal tube was noted down distally close to the dotty, and this was pulled up 2 cm) Assessment and Plan Assessment: Impression: Acute ST elevation ID requiring stenting of LAD. Acute upper GI bleeding possibly secondary to duodenal ulcer Acute hypoxic respiratory failure requiring intubation and mechanical ventilation, most likely secondary to profound hypotension secondary to upper GI bleeding and hypovolemia. Hypovolemic shock, doubt cardiogenic shock. Doubt septic shock End-stage renal disease, on hemodialysis. History of duodenal ulcer. Acute blood loss anemia Acute on chronic hyperkalemia secondary to end-stage renal disease and metabolic acidosis. Acute metabolic acidosis secondary to chronic kidney disease and hypotension. Benign essential hypertension Recommendation: Continue ventilatory support Continue hemodynamic support patient will receive fluids, blood products, and in the meantime we will continue pressors. Continue bicarbonate drip. Transfuse to maintain hemoglobin above 7 PPI treatment Surgical/GI consultation. Hold anticoagulation if agreeable with cardiology/Plavix and aspirin. Patient was seen by surgery and recommended tertiary care referral, however the patient is not stable enough for transfer at this point. His condition is extremely critical. Patient is critically ill. We will continue to follow Time with Patient: Greater than 30
--- NOTE | 2022-01-21 12:59 | OP ---
OPERATIVE REPORT PROCEDURE PERFORMED: Placement of the right femoral triple-lumen catheter. PREOPERATIVE DIAGNOSIS: Profound hypotension, upper gastrointestinal bleeding, and the patient had no IV access. POSTOPERATIVE DIAGNOSIS: Profound hypotension, upper gastrointestinal bleeding, and the patient had no IV access. ANESTHESIA USED: 2 mL of 1% lidocaine. DESCRIPTION OF PROCEDURE: The patient was placed in a supine position, the area of the right groin was prepared in a sterile fashion and drapes were applied. The area was locally anesthetized with lidocaine. Then the right femoral vein was easily cannulated, a guidewire was placed, area on the guidewire was dilated, a triple-lumen catheter inserted over the guidewire and the guidewire was removed. Good blood flow noted in the 3 different ports of the triple-lumen catheter. Line was secured using 3.0 silk sutures. No complications. MMODL / IJN: [id number] /
--- NOTE | 2022-01-21 12:59 | OP ---
OPERATIVE REPORT PROCEDURE PERFORMED: Placement of the right femoral arterial line. PREOPERATIVE DIAGNOSIS: Profound hypotension and upper gastrointestinal bleeding, patient needed hemodynamic monitoring. POSTOPERATIVE DIAGNOSIS: Profound hypotension and upper gastrointestinal bleeding, patient needed hemodynamic monitoring. ANESTHESIA USED: None deployed. DESCRIPTION OF PROCEDURE: The right groin was prepared in a sterile fashion, drapes were applied, the right femoral artery was palpated, easily cannulated, and a guidewire was placed. A femoral Cook catheter was inserted over the guidewire, the guidewire was removed, good blood flow, good waveform. No complications. Line was secured using 3.0 silk sutures. MMODL / IJN: [id number] /
[2022-01-21 13:41] VITALS: BP 132/57
[2022-01-21 14:40] LABS: Basophils % (A) 0 %; Eosinophils % (A) 0 %; Lymphocytes # (A) 1.1 k/uL (1.0-4.8); Lymphocytes % (A) 10 %; MCH 31.7 pg (25.0-35.0); Mean Platelet Volume 10.3; Monocytes # (A) 0.5 k/uL (0-1.0); Monocytes % (A) 5 %; Neutrophils % (A) 83 %; Platelet Count 122 k/uL (150-450); RDW 14.4 % (11.5-15.5); WBC 10.8 k/uL (3.8-10.6)
[2022-01-21 14:44] LABS: HGB 7.9 gm/dL (13.0-17.5); MCV 95.9 fL (80.0-100.0)
[2022-01-21 15:53] LABS: Calcium 8.3 mg/dL (8.4-10.2); Potassium 5.2 mmol/L (3.5-5.1)
[2022-01-21] MEDS ORDERED: DEXTROSE 50% SYRINGE 50 ML IVP ONE (16:09)
[2022-01-21 16:12] LABS: Glucose,Whole Blood 55 mg/dL (70-110)
[2022-01-21 16:13] LABS: % Iron Saturation 123.26 (15.00-50.00)
[2022-01-21 16:34] LABS: Glucose,Whole Blood 191 mg/dL (70-110)
--- NOTE | 2022-01-21 16:41 | P.DS ---
Providers Date of admission: 01/21/22 01:27 Expected date of discharge: 01/21/22 Attending physician: Jonna Vaughn MD Consults: 01/21/22 01:25 Consult Physician Routine Consulting Provider: Wander Fernando Consult Reason/Comments: Dialysis patient, received IV contrast Do you want consulting provider notified?: Yes Consult Physician Stat Consulting Provider: Naveed James Consult Reason/Comments: Acute coronary syndrome. Do you want consulting provider notified?: Already Contacted 01/21/22 02:32 Consult Physician Stat Consulting Provider: Naveed James Consult Reason/Comments: STEMI Do you want consulting provider notified?: Already Contacted 01/21/22 03:42 Consult Physician Routine Consulting Provider: [facility] Consult Reason/Comments: Post Interventional patient Do you want consulting provider notified?: Already Contacted 01/21/22 09:25 Consult Physician Stat Consulting Provider: Nj Vidal Consult Reason/Comments: GIB Do you want consulting provider notified?: Yes Primary care physician: Wander Fernando Hospital Course: Discharge Diagnosis: STEMI Plaque rupture involving the very proximal LAD. successful stenting of the LAD with 2 stents Acute GI bleed, suspect upper Acute blood loss anemia Hypovolemic/distributive shock Systolic cardiomyopathy - per verbal report EF 30-35% ESRD on HD Metabolic cidosis Hyperkalemia Thrombocytopenia Hx HTN Chronic kidney disease mineral bone disease. Prior GI bleed 10/2020 with probable antral and duodenal ulcer Hospital Course: Patient is a 66-year-old male with ESRD on hemodialysis, hypertension, hyperlipidemia, and aortic stenosis who had presented to the emergency room with complaints of chest discomfort. The patient's EKG performed in the emergency room was concerning for ST elevation [place] for which cardiology was immediately consulted and the patient was taken for cardiac catheterization which revealed a proximal LAD occlusion, for which 2 stents were placed. He was hypotensive post cath and was initiated on levophed by cardiology. At approximately 6:30 this morning patient had worsening of his condition. His blood pressure was low. He required intubation due to work of breathing and altered level of mentation. He had a bedside echocardiogram performed which per verbal report showed an ejection fraction of 30-35%. Upon placement of OG-tube it was noted that he had geraldine blood return. He was started on borad spectrum antibiotics by critical care due to concerns for sepsis. Initial hemoglobin on presentation had been 9.1 and on repeat was 5.9. Potassium 5.3. He required increasing doses of levothyroid and ultimately vasopressin. 2 units of packed red blood cells were ordered and the patient was placed on IV Protonix. Nephrology placed him on a hyperkalrmia cocktail. Surgery was consulted and recommended transfer to a Center with gastroenterology. Critical care was contacted by myself who felt the patient was not stable enough for transfer at that time due to increasing vasopressors. Patient's vasopressor requirements back out at leave at 1 mcg/kg/m and vasopressin 0.04 units/m. These were decreased after 2 units of packed red blood cells were transfused. The bleeding decreased and there was only 100 additional CC of fluid in OG canister in several hours. Patient blood pressure remained stable for several hours. Per surgery all plavix and ASA was held. It was determined he was stable for transfer at that time. [facility] was contacted. Dr. Finn, GI and Critical care agreed to take the patient. Additional details: cardiology wanted to avoif platelet transfusion due to recent stent, but if conitnues to bleed can transfused platelets due to recent plavix load Patient did have an episode of hypoglycemia to 55. At that time his D5 with 3 amps of bicard infusion was increased (This event occured several hours after insulin given for hyperkalemia) [facility] Fernando for physical exam see progress note same date. A total of 105 minutes of time were spent preparing this complex discharge summary. Patient was transferred to [facility] on 01/21/22. Active Medications Generic Name Dose Route Start Last Admin Trade Name Freq PRN Reason Stop Dose Admin Acetaminophen 650 mg 01/21/22 01:25 Acetaminophen Tab 325 Mg Tab PO Q4HR PRN Fever and/or Mild Pain Al Hydroxide/Mg Hydroxide 30 ml 01/21/22 03:41 Mag Hydrox/Al Hydrox/Simeth 30 Ml Cup PO Q4HR PRN Heartburn Atorvastatin Calcium 80 mg 01/21/22 21:00 Atorvastatin 80 Mg Tab PO HS MARIAH Atropine Sulfate 0.5 mg 01/21/22 03:41 Atropine Sulfate 0.1 Mg/Ml 10ml Syringe IV ONCE PRN Symptomatic Bradycardia Darbepoetin Juanpablo 40 mcg 01/21/22 09:00 Darbepoetin Juanpablo 40 Mcg/0.4 Ml Syringe SQ Q7D MARIAH Flumazenil 0.2 mg 01/21/22 05:00 01/21/22 05:03 Flumazenil 0.1 Mg/Ml 5 Ml Vial IVP 0.2 mg ONCE PRN Administration Patient Response Sodium Chloride 1,000 mls @ 20 mls/hr 01/21/22 01:30 01/21/22 01:31 Saline 0.9% IV 20 mls/hr .Q24H MARIAH Administration Norepinephrine Bitartrate 4 mg 254 mls @ 7.518 mls/hr 01/21/22 04:30 01/21/22 12:38 / Sodium Chloride IV Infused .Q24H MARIAH Titration Protocol 0.03 MCG/KG/MIN Propofol 1,000 mg/ IV Solution 100 mls @ 5.919 mls/hr 01/21/22 07:15 01/21/22 09:10 IV 15 mcg/kg/min .[id number] MARIAH 5.919 mls/hr Administration Protocol 15 MCG/KG/MIN Piperacillin Sod/Tazobactam 100 mls @ 25 mls/hr 01/21/22 09:00 01/21/22 10:29 Sod 3.375 gm/ Sodium Chloride IVPB 25 mls/hr Q12HR MARIAH Administration Protocol Sodium Bicarbonate 150 ml/ 1,150 mls @ 50 mls/hr 01/21/22 09:00 01/21/22 09:48 Dextrose/Water IV 50 mls/hr .Q23H MARIAH Administration Vancomycin HCl 1,250 mg/ 250 mls @ 125 mls/hr 01/22/22 09:00 Sodium Chloride IVPB 01/22/22 10:59 ONCE ONE Vasopressin 20 unit/ Sodium 51 mls @ 4.59 mls/hr 01/21/22 10:00 01/21/22 11:34 Chloride IV 0.03 units/min .Q11H7M MARIAH 4.59 mls/hr Administration Protocol 0.03 UNITS/MIN Norepinephrine Bitartrate 32 250 mls @ 30.214 mls/hr 01/21/22 12:15 01/21/22 15:35 mg/ Sodium Chloride IV 0.65 mcg/kg/min .Q8H17M MARIAH 20.04 mls/hr Titration Protocol 0.98 MCG/KG/MIN Miscellaneous Information 1 each 01/21/22 03:41 Rx Info: Iv Contrast Was Given 1 Each [facility] MISCELLANE 01/23/22 03:42 DAILY PRN Per Protocol Miscellaneous Information 1 each 01/21/22 08:50 Vancomycin Iv Per Pharmacy 1 Each [facility] MISCELLANE DIRECTED PRN Per Protocol Protocol Morphine Sulfate 4 mg 01/21/22 01:25 Morphine Sulfate 4 Mg/Ml Syringe IV Q3HR PRN Severe Pain (Scale 7 to 10) Naloxone HCl 0.2 mg 01/21/22 02:32 Naloxone 0.4 Mg/Ml 1 Ml Vial IV Q2M PRN Opioid Reversal Nitroglycerin 0.4 mg 01/21/22 03:41 Nitroglycerin Sl Tabs 0.4 Mg Tab SUBLINGUAL Q5M PRN Chest Pain Pantoprazole Sodium 40 mg 01/21/22 09:45 01/21/22 11:01 Pantoprazole 40 Mg/10 Ml Vial IVP 40 mg BID MARIAH Administration Sodium Zirconium Cyclosilicate 10 gm 01/21/22 09:00 01/21/22 09:47 Sodium Zirconium Cyclosilicate 10 Gm Packet PO 01/22/22 21:01 10 gm BID MARIAH Administration Zolpidem Tartrate 5 mg 01/21/22 03:41 Zolpidem 5 Mg Tab PO HS PRN Insomnia Patient Condition at Discharge: Critical Plan - Discharge Summary Discharge Rx Participant: Yes New Discharge Prescriptions: No Action amLODIPine [Norvasc] 10 mg PO DAILY@0900 cloNIDine HCL [Catapres] 0.3 mg PO TID@0600,1400,2200 carvediloL [Coreg] 25 mg PO BID@0900,1700 Sevelamer [Renvela] 1,600 mg PO TID-W/MEALS Doxazosin [Cardura] 2 mg PO BID@0900,1700 Saba-Dwihgt (G-Vlpnark-P-Folic-Acid) 1 tab PO DAILY@0900 Aspirin 81 mg PO DAILY@0900 Pantoprazole [Protonix] 40 mg PO DAILY Auryxia 1gm/210mg 1 - 2 tab PO AC-TID Auryxia 1gm/210mg 1 tab PO DIRECTED PRN PRN Reason: snacks Discharge Medication List amLODIPine [Norvasc] 10 mg PO DAILY@0900 02/20/15 [History] Doxazosin [Cardura] 2 mg PO BID@0900,1700 10/15/20 [History] carvediloL [Coreg] 25 mg PO BID@0900,1700 10/15/20 [History] cloNIDine HCL [Catapres] 0.3 mg PO TID@0600,1400,2200 10/15/20 [History] Aspirin 81 mg PO DAILY@0900 10/24/20 [History] Saba-Dwight (K-Eqkwvkq-C-Folic-Acid) 1 tab PO DAILY@0900 10/24/20 [History] Sevelamer [Renvela] 1,600 mg PO TID-W/MEALS 10/24/20 [History] Auryxia 1gm/210mg 1 - 2 tab PO AC-TID 01/21/22 [History] Auryxia 1gm/210mg 1 tab PO DIRECTED PRN 01/21/22 [History] Pantoprazole [Protonix] 40 mg PO DAILY 01/21/22 [History] Follow up Appointment(s)/Referral(s): Wander Fernando DO [Primary Care Provider] - 1-2 days Patient Instructions/Handouts: Chest Pain (ED)
[2022-01-21 17:14] VITALS: TEMP 97.9
[2022-01-21 17:44] LABS: Glucose,Whole Blood 103 mg/dL (70-110)
[2022-01-21] MEDS ORDERED: SODIUM BICARB 8.4% 50 ML SYR (1 MEQ/ML) ONE (18:07)
[2022-01-21 18:11] VITALS: PULSE 90; RESP 37
--- NOTE | 2022-01-21 18:11 | CA ---
Transthoracic Echo Report Name: Harinder Gerard Age: 66 Gender: M : 1955 Exam Date: 01/21/2022 07:23 Exam Location: [facility] Ht (in): 67 Wt (lb): 145 Ordering Physician: Naveed James MD ([id number]) Attending/Referring Phys: [facility] Specialist Madai Pérez RDCS Procedure CPT: Indications: EF (cardiac) Cardiac Hx: Technical Quality: Fair Contrast 1: Total Dose (mL): Contrast 2: Total Dose (mL): MEASUREMENTS (Male / Female) Normal Values 2D ECHO LV Diastolic Diameter PLAX 3.4 cm 4.2 - 5.9 / 3.9 - 5.3 cm LV Systolic Diameter PLAX 2.1 cm IVS Diastolic Thickness 2.3 cm 0.6 - 1.0 / 0.6 - 0.9 cm LVPW Diastolic Thickness 2.0 cm 0.6 - 1.0 / 0.6 - 0.9 cm LV Relative Wall Thickness 1.2 DOPPLER AV Peak Velocity 240.7 cm/s AV Peak Gradient 23.2 mmHg AV Mean Velocity 172.1 cm/s AV Mean Gradient 13.2 mmHg AV Velocity Time Integral 36.7 cm LVOT Peak Velocity 75.8 cm/s LVOT Peak Gradient 2.3 mmHg LVOT Velocity Time Integral 11.8 cm MV Area PHT 3.6 cm??? Mitral E Point Velocity 63.6 cm/s Mitral A Point Velocity 45.9 cm/s Mitral E to A Ratio 1.4 MV Deceleration Time 213.7 ms FINDINGS Left Ventricle Severely increased left ventricular wall thickness. No obvious regional wall motion abnormalities. Left ventricular ejection fraction is estimated at 35 %. Left ventricle cavity size is decrease. Right Ventricle Normal right ventricular size. Right Atrium Normal right atrial size. Left Atrium Normal left atrial size. Mitral Valve Severe mitral annular calcification. Trace to mild mitral regurgitation. Aortic Valve Mild aortic stenosis with a peak gradient of 23 mmHg and a mean gradient of 13 mmHg. Tricuspid Valve Mild tricuspid regurgitation. Pulmonic Valve Pulmonic valve not well visualized. Pericardium Small pericardial effusion. Aorta Normal size aortic root and proximal ascending aorta. CONCLUSIONS Impaired LV function was EF around 35% with concentric LVH Mild aortic stenosis Small pericardial effusion Previewed by: Dr. Naveed James MD (Electronically Signed) Final Date: 21 January 2022 18:10
[2022-01-21] MEDS ORDERED: ATORVASTATIN 80 MG TAB PO SCH (21:00)
[2022-01-22] MEDS ORDERED: VANCOMYCIN 1,250 MG in SODIUM CHLORIDE 0.9% 250 ML IVPB ONE (09:00)
[2022-01-22] MEDS ORDERED: CLOPIDOGREL 75 MG TAB PO SCH (09:00)
== END 2022-01-21 19:00 | disposition short-term general hospital (02) | DRG 246 ==
LOC: EC 00:58 → 2SICU 01:27
PROVIDERS: ADMIT Internal Medicine; ATTEND Internal Medicine
PROC: B2111ZZ Fluoroscopy of Multiple Coronary Arteries using Low Osmolar Contrast (ICD-10-PCS; 2022-01-21)
PROC: 4A023N7 Measurement of Cardiac Sampling and Pressure, Left Heart, Percutaneous Approach (ICD-10-PCS; 2022-01-21)
PROC: B240ZZ3 Ultrasonography of Single Coronary Artery, Intravascular (ICD-10-PCS; 2022-01-21)
PROC: 04HY32Z Insertion of Monitoring Device into Lower Artery, Percutaneous Approach (ICD-10-PCS; 2022-01-21)
PROC: 4A133B1 Monitoring of Arterial Pressure, Peripheral, Percutaneous Approach (ICD-10-PCS; 2022-01-21)
PROC: 4A133J1 Monitoring of Arterial Pulse, Peripheral, Percutaneous Approach (ICD-10-PCS; 2022-01-21)
PROC: 06HY33Z Insertion of Infusion Device into Lower Vein, Percutaneous Approach (ICD-10-PCS; 2022-01-21)
PROC: 3E033XZ Introduction of Vasopressor into Peripheral Vein, Percutaneous Approach (ICD-10-PCS; 2022-01-21)
PROC: 0BH18EZ Insertion of Endotracheal Airway into Trachea, Via Natural or Artificial Opening Endoscopic (ICD-10-PCS; 2022-01-21)
PROC: 5A1935Z Respiratory Ventilation, Less than 24 Consecutive Hours (ICD-10-PCS; 2022-01-21)
PROC: 30233N1 Transfusion of Nonautologous Red Blood Cells into Peripheral Vein, Percutaneous Approach (ICD-10-PCS; 2022-01-21)
PROC: 0D9670Z Drainage of Stomach with Drainage Device, Via Natural or Artificial Opening (ICD-10-PCS; 2022-01-21)
PROC: 027035Z Dilation of Coronary Artery, One Artery with Two Drug-eluting Intraluminal Devices, Percutaneous Approach (ICD-10-PCS; principal; 2022-01-21 01:43)
DX: I21.09 ST elevation (STEMI) myocardial infarction involving other coronary artery of anterior wall (principal); J96.01 Acute respiratory failure with hypoxia; R57.1 Hypovolemic shock; R57.8 Other shock; N18.6 End stage renal disease; I31.39 Other pericardial effusion (noninflammatory); E87.21 Acute metabolic acidosis; I12.0 Hypertensive chronic kidney disease with stage 5 chronic kidney disease or end stage renal disease; I42.8 Other cardiomyopathies; D62 Acute posthemorrhagic anemia; K92.2 Gastrointestinal hemorrhage, unspecified; D69.6 Thrombocytopenia, unspecified; I08.3 Combined rheumatic disorders of mitral, aortic and tricuspid valves; C80.1 Malignant (primary) neoplasm, unspecified; E87.5 Hyperkalemia; E78.5 Hyperlipidemia, unspecified; M89.8X9 Other specified disorders of bone, unspecified site; E86.1 Hypovolemia; R00.1 Bradycardia, unspecified; E16.2 Hypoglycemia, unspecified; Z28.310 Unvaccinated for COVID-19; Z90.5 Acquired absence of kidney; Z99.2 Dependence on renal dialysis; Z87.891 Personal history of nicotine dependence; Z79.82 Long term (current) use of aspirin; Z79.2 Long term (current) use of antibiotics; Z88.2 Allergy status to sulfonamides; Z87.11 Personal history of peptic ulcer disease; Z92.21 Personal history of antineoplastic chemotherapy; Z79.899 Other long term (current) drug therapy; Z82.49 Family history of ischemic heart disease and other diseases of the circulatory system
CPT/HCPCS: 36415; 71045; 80048; 80053; 82150; 82533; 82728; 82805; 83540; 83550; 83690; 83735; 83880; 84484; 85025; 85610; 85730; 86850; 86900; 86901; 86920; 87040; 87635; 93005; 93306; 94002; 96361; 96374; 96375; 99291

== ENCOUNTER 2022-02-17 09:54 | Emergency (ER) | payer MEDICARE, OTHER ==
[2022-02-17] MEDS ORDERED: PANTOPRAZOLE 40 MG/10 ML VIAL IVP STA (10:20)
[2022-02-17] MEDS ORDERED: ONDANSETRON 4 MG/2 ML VIAL IVP STA (10:20)
[2022-02-17] MEDS ORDERED: HEPARIN SODIUM 1,000 UN/ML (10ML VL) IV ONE (11:20)
[2022-02-17] MEDS ORDERED: HEPARIN SODIUM 1,000 UN/ML (10ML VL) IV PRN (11:20)
--- NOTE | 2022-02-17 11:22 | ED ---
General Adult HPI - General Chief complaint: GI Bleed Stated complaint: GI Bleed Time Seen by Provider: 02/17/22 10:19 Source: EMS, RN notes reviewed, old records reviewed Mode of arrival: EMS Limitations: no limitations - History of Present Illness Initial comments: Patient is a 66-year-old male with a past medical history remarkable for ESRD on hemodialysis, DE who presents emergency department [facility], Occult Positive Stool with Anemia, and Volume Overload. Patient Also Appeared to Have an N STEMI at the outside hospital. He received aspirin there. Has had a little bit of intermittent confusion as well. Did miss dialysis. Was transferred here for dialysis and admission. He did receive 1 unit of blood which is still running when he arrived. The rest of the workup was remarkable for an elevated troponin, elevated d-dimer. Potassium was slightly elevated as well with no EKG changes. Patient states he has been feeling short of breath which is why he was taking the outside facility. Is uncertain why he missed dialysis. Presents for further evaluation at this time. Patient does have a DO NOT RESUSCITATE wristband on, however he states he is not sure if he is DO NOT RESUSCITATE. I'll speak with family regarding this. - Related Data Home Medications Medication Instructions Recorded Confirmed amLODIPine [Norvasc] 10 mg PO DAILY 02/20/15 02/17/22 Doxazosin [Cardura] 2 mg PO BID 10/15/20 02/17/22 carvediloL [Coreg] 25 mg PO BID 10/15/20 02/17/22 cloNIDine HCL [Catapres] 0.3 mg PO TID 10/15/20 02/17/22 Sevelamer [Renvela] 1,600 mg PO TID-W/MEALS 10/24/20 02/17/22 Auryxia 1gm/210mg 1 - 2 tab PO AC-TID 01/21/22 02/17/22 Auryxia 1gm/210mg 1 tab PO DIRECTED PRN 01/21/22 02/17/22 Pantoprazole [Protonix] 40 mg PO DAILY 01/21/22 02/17/22 Levothyroxine Sodium [Synthroid] 25 mcg PO DAILY 02/17/22 02/17/22 Allergies Allergy/AdvReac Type Severity Reaction Status Date / Time Sulfa (Sulfonamide Allergy Rash/Hives Verified 12/08/22 11:29 Antibiotics) Review of Systems ROS Statement: Those systems with pertinent positive or pertinent negative responses have been documented in the HPI. Review of Systems: CONST: Denies fever EYES: Denies blurry vision ENT: Denies nasal congestion C/V: Denies Chest pain RESP: Endorses shortness of breath GI: Denies abdominal pain : Denies dysuria SKIN: Denies rash. MSK: Denies joint pain. NEURO: Denies headache ROS Other: All systems not noted in ROS Statement are negative. Past Medical History Past Medical History: Cancer, Dialysis, Hypertension, Myocardial Infarction (DE), Renal Disease Additional Past Medical History / Comment(s): DIALYSIS M,W. F; pt. is a poor historian. pt states he sees Dr. Chavis, but unsure of location of cancer. Patients son states that he could have cancer of his stomach possible Last Myocardial Infarction Date:: 01/21/2022 History of Any Multi-Drug Resistant Organisms: None Reported Additional Past Surgical History / Comment(s): FISTULA, right side kidney removal. Past Psychological History: No Psychological Hx Reported Smoking Status: Former smoker - Past Family History Mother Family Medical History: Dementia, Hypertension General Exam - General Exam Comments Initial Comments: General: Appears in mild respiratory distress. HEAD: Normal with no signs of head trauma. EYES: PERRLA, EOMI, conjunctiva normal, no discharge. ENT: Hearing grossly intact, normal oropharynx. RESPIRATORY: Crackles bilaterally. Mild increased work of breathing. Mild hypoxia 6 with 2 L nasal cannula. C/V: Patient is tachycardic with a regular rhythm. S1 and S2 auscultated. Peripheral pulses 2+ and intact. ABD: Abd is soft, nontender, nondistended EXT: Normal range of motion, no obvious deformity SKIN: No rashes or lesions observed on exposed skin. NEURO: Alert and oriented 3 at this time. No focal deficits. Limitations: no limitations Course Vital Signs 02/17/22 02/17/22 09:59 12:56 Temperature 98 F 98.6 F Pulse Rate 122 H 106 H Respiratory 24 19 Rate Blood Pressure 138/85 119/74 O2 Sat by Pulse 96 97 Oximetry Medical Decision Making - Medical Decision Making Based on the patient's presentation and physical exam, he was initially accepted the transfer. When the patient arrived, there were details and information that we were unaware of until after discussion with the patient's senior interactive producer as well as further review of the chart, I do believe the patient will require transfer again. We do not have GI services here and apparently when the patient had an DE a month ago, he had significant upper GI bleed was transferr ed to [facility] for significant clipping of the stomach for GI bleed at that time. We do not have GI services available here. I did discuss this with Dr. Watson the on-call surgeon who requested transfer as well. I did discuss with Dr. Fernando who was in agreement. Patient is still having one unit of blood running. We will repeat blood work as well as EKG. Patient did have an elevated d-dimer in the 20s and Naif and no CT imaging was done. Patient likely requires a CT angiogram of the chest to rule out PE, however this may wait until he arrives at the transfer facility. Patient is stable at this time, is likely experiencing shortness of breath from his worsening volume overload state, and patient should not be treated with heparin at this time over concern for GI bleed anyways. Management will not change. I discussed this patient was in agreement. I did discuss the case with patient's son, Rene who I was able to reach over the phone. He believes his father is full code. We will cut off the DO NOT RESUSCITATE wristband at this time and clarify or make attempts to clarify with the outpatient facility. I spoke with [facility] who accepted the patient. Dr. Gonzalez the accepting physician. Patient will be transferred in serious condition. We did discuss obtaining a CT PE here, however he was in agreement with transfer at first and then further evaluation there. Patient was therefore transferred in serious condition. Anticoagulation will be held at this time over concern for GI bleed, anemia, and the risks far outweigh the benefits of that at this time. He has had no episodes of GI bleeding here in the department. - Lab Data Result diagrams: 02/17/22 10:57 02/17/22 10:57 Lab Results 02/17/22 02/17/22 02/17/22 Range/Units 10:57 10:57 10:57 WBC 13.7 H (3.8-10.6) k/uL RBC 2.35 L (4.30-5.90) m/uL Hgb 7.3 L (13.0-17.5) gm/dL Hct 22.4 L (39.0-53.0) % MCV 95.3 (80.0-100.0) fL MCH 31.2 (25.0-35.0) pg MCHC 32.8 (31.0-37.0) g/dL RDW 16.8 H (11.5-15.5) % Plt Count 186 D (150-450) k/uL MPV 9.0 Neutrophils % 89 % Lymphocytes % 5 % Monocytes % 4 % Eosinophils % 0 % Basophils % 0 % Neutrophils # 12.2 H (1.3-7.7) k/uL Lymphocytes # 0.7 L (1.0-4.8) k/uL Monocytes # 0.6 (0-1.0) k/uL Eosinophils # 0.0 (0-0.7) k/uL Basophils # 0.0 (0-0.2) k/uL Hypochromasia Slight Anisocytosis Slight Macrocytosis Slight PT 13.1 H (9.0-12.0) sec INR 1.3 H (<1.2) APTT 29.9 (22.0-30.0) sec Sodium 137 (137-145) mmol/L Potassium 5.6 H (3.5-5.1) mmol/L Chloride 97 L (98-107) mmol/L Carbon Dioxide 30 (22-30) mmol/L Anion Gap 10 mmol/L BUN 74 H (9-20) mg/dL Creatinine 7.69 H* (0.66-1.25) mg/dL Est GFR (CKD-EPI)AfAm 8 (>60 ml/min/1.73 sqM) Est GFR (CKD-EPI)NonAf 7 (>60 ml/min/1.73 sqM) Glucose 104 H (74-99) mg/dL Lactic Ac Sepsis Rflx Plasma Lactic Acid Kory (0.7-2.0) mmol/L Calcium 9.5 (8.4-10.2) mg/dL Total Bilirubin 1.8 H (0.2-1.3) mg/dL AST 88 H (17-59) U/L ALT 21 (4-49) U/L Alkaline Phosphatase 96 (38-126) U/L Troponin I (0.000-0.034) ng/mL NT-Pro-B Natriuret Pep pg/mL Total Protein 7.3 (6.3-8.2) g/dL Albumin 3.4 L (3.5-5.0) g/dL Amylase 257 H (30-110) U/L Lipase 635 H (23-300) U/L 02/17/22 02/17/22 02/17/22 Range/Units 10:57 10:57 10:57 WBC (3.8-10.6) k/uL RBC (4.30-5.90) m/uL Hgb (13.0-17.5) gm/dL Hct (39.0-53.0) % MCV (80.0-100.0) fL MCH (25.0-35.0) pg MCHC (31.0-37.0) g/dL RDW (11.5-15.5) % Plt Count (150-450) k/uL MPV Neutrophils % % Lymphocytes % % Monocytes % % Eosinophils % % Basophils % % Neutrophils # (1.3-7.7) k/uL Lymphocytes # (1.0-4.8) k/uL Monocytes # (0-1.0) k/uL Eosinophils # (0-0.7) k/uL Basophils # (0-0.2) k/uL Hypochromasia Anisocytosis Macrocytosis PT (9.0-12.0) sec INR (<1.2) APTT (22.0-30.0) sec Sodium (137-145) mmol/L Potassium (3.5-5.1) mmol/L Chloride (98-107) mmol/L Carbon Dioxide (22-30) mmol/L Anion Gap mmol/L BUN (9-20) mg/dL Creatinine (0.66-1.25) mg/dL Est GFR (CKD-EPI)AfAm (>60 ml/min/1.73 sqM) Est GFR (CKD-EPI)NonAf (>60 ml/min/1.73 sqM) Glucose (74-99) mg/dL Lactic Ac Sepsis Rflx Plasma Lactic Acid Kory 2.3 H* (0.7-2.0) mmol/L Calcium (8.4-10.2) mg/dL Total Bilirubin (0.2-1.3) mg/dL AST (17-59) U/L ALT (4-49) U/L Alkaline Phosphatase (38-126) U/L Troponin I 5.660 H* (0.000-0.034) ng/mL NT-Pro-B Natriuret Pep 027785 pg/mL Total Protein (6.3-8.2) g/dL Albumin (3.5-5.0) g/dL Amylase (30-110) U/L Lipase (23-300) U/L 02/17/22 Range/Units 11:45 WBC (3.8-10.6) k/uL RBC (4.30-5.90) m/uL Hgb (13.0-17.5) gm/dL Hct (39.0-53.0) % MCV (80.0-100.0) fL MCH (25.0-35.0) pg MCHC (31.0-37.0) g/dL RDW (11.5-15.5) % Plt Count (150-450) k/uL MPV Neutrophils % % Lymphocytes % % Monocytes % % Eosinophils % % Basophils % % Neutrophils # (1.3-7.7) k/uL Lymphocytes # (1.0-4.8) k/uL Monocytes # (0-1.0) k/uL Eosinophils # (0-0.7) k/uL Basophils # (0-0.2) k/uL Hypochromasia Anisocytosis Macrocytosis PT (9.0-12.0) sec INR (<1.2) APTT (22.0-30.0) sec Sodium (137-145) mmol/L Potassium (3.5-5.1) mmol/L Chloride (98-107) mmol/L Carbon Dioxide (22-30) mmol/L Anion Gap mmol/L BUN (9-20) mg/dL Creatinine (0.66-1.25) mg/dL Est GFR (CKD-EPI)AfAm (>60 ml/min/1.73 sqM) Est GFR (CKD-EPI)NonAf (>60 ml/min/1.73 sqM) Glucose (74-99) mg/dL Lactic Ac Sepsis Rflx Y Plasma Lactic Acid Kory (0.7-2.0) mmol/L Calcium (8.4-10.2) mg/dL Total Bilirubin (0.2-1.3) mg/dL AST (17-59) U/L ALT (4-49) U/L Alkaline Phosphatase (38-126) U/L Troponin I (0.000-0.034) ng/mL NT-Pro-B Natriuret Pep pg/mL Total Protein (6.3-8.2) g/dL Albumin (3.5-5.0) g/dL Amylase (30-110) U/L Lipase (23-300) U/L - EKG Data -: EKG Interpreted by Me EKG Comments: 12-lead Electrocardiogram Interpretation Note EKG was reviewed and interpreted by myself. 12-lead ECG performed at 1045 is interpreted by me as revealing sinus tachycardia at a rate of 108 beats per minute. Left axis deviation. CO interval 140 ms, QRS duration 141 ms, QTc 418 ms.. There were no ST or T wave abnormalities to suggest myocardial ischemia or injury. R wave progression across the precordium was delayed. By my interpretation this EKG is non-diagnostic for acute ischemia. Chem head with prior EKG from earlier, patient does have a history of left bundle-branch block which is unchanged. Critical Care Time Critical Care Time: Yes Total Critical Care Time: 35 Critical Care Time: Upon my evaluation, this patient had a high probability of imminent or life-threatening deterioration due to GI bleed, missed dialysis, volume overload, elevated d-dimer, nstemi, which required my direct attention, intervention, and personal management. I have personally provided 35 minutes of critical care time exclusive of time spent on separately billable procedures. Time includes review of laboratory data, radiology results, discussion with consultants, and monitoring for potential decompensation. Interventions were performed as documented in my note. Disposition Clinical Impression: GI bleed, NSTEMI (non-ST elevated myocardial infarction), Volume overload, Missed dialysis, CAD (coronary artery disease), Elevated d-dimer Disposition: OTHER INSTITUTION NOT DEFINED Condition: Serious Referrals: None,Stated [Primary Care Provider] - 1-2 days Time of Disposition: 11:10 - Out of Hospital Transfer - Req. Specs Out of Hospital Transfer - Requested Specifics: Other Emergency Center (Transfer to [facility] for GI evaluation.)
[2022-02-17 11:28] LABS: Anisocytosis Slight; Basophils % (A) 0 %; Eosinophils % (A) 0 %; HCT 22.4 % (39.0-53.0); HGB 7.3 gm/dL (13.0-17.5); Hypochromasia Slight; Lymphocytes # (A) 0.7 k/uL (1.0-4.8); Lymphocytes % (A) 5 %; MCH 31.2 pg (25.0-35.0); MCHC 32.8 g/dL (31.0-37.0); MCV 95.3 fL (80.0-100.0); Macrocytosis Slight; Monocytes # (A) 0.6 k/uL (0-1.0); Monocytes % (A) 4 %; Neutrophils # (A) 12.2 k/uL (1.3-7.7); Neutrophils % (A) 89 %; RBC 2.35 m/uL (4.30-5.90); RDW 16.8 % (11.5-15.5); WBC 13.7 k/uL (3.8-10.6)
[2022-02-17 11:29] LABS: Platelet Count 186 k/uL (150-450)
[2022-02-17] MEDS ORDERED: HEPARIN SOD,PORK IN 0.45% NACL 25,000 UNIT in 0.45% NACL 1 250ML.BAG IV SCH (11:30)
[2022-02-17 11:31] LABS: INR 1.3 (<1.2); Partial Thromboplastin Time 29.9 sec (22.0-30.0); Prothrombin Time 13.1 sec (9.0-12.0)
[2022-02-17 11:32] LABS: Albumin 3.4 g/dL (3.5-5.0); Calcium 9.5 mg/dL (8.4-10.2); Potassium 5.6 mmol/L (3.5-5.1); Total Bilirubin 1.8 mg/dL (0.2-1.3); Total Protein 7.3 g/dL (6.3-8.2)
[2022-02-17] MEDS ORDERED: SODIUM CHLORIDE 0.9% 1,000 ML IV STA (11:51)
[2022-02-17] MEDS ORDERED: SODIUM ZIRCONIUM CYCLOSILICATE 10 GM PACKET PO ONE (12:19)
--- NOTE | 2022-02-17 12:21 | P.NPCON ---
History of Present Illness - Reason for Consult end stage renal disease - History of Present Illness Reason for consultation: End-stage renal disease History of present illness: Patient is a 66-year-old male seen in consultation for end-stage renal disease. He is maintained on hemodialysis on Monday schedule. Patient is currently residing at a rehab facility. Patient went to an outside facility and was noted to have a low hemoglobin. He received a unit of blood and was subsequently transferred here. Hemoglobin here was 7.3. Patient received about 1 hour of hemodialysis treatment yesterday and then the treatment was cut short as he started vomiting and wasn't feeling well. Patient states he did notice red stool about 2 days ago but none since. Patient recently had an extensive hospitalization during which she underwent cardiac stenting which was uncomplicated by GI bleed for which she underwent clipping as well as embolization of arteries. He subsequently had CVA from the emboli and was eventually transferred to rehab facility. Blood pressure stable. Denies chest pain or shortness of breath. No vomiting. No diarrhea. Patient was seen and examined in the emergency room. Vital signs are stable. General: Awake. No acute distress. HEENT: Head exam is unremarkable. LUNGS: Breath sounds decreased. HEART: Rate and Rhythm are regular. ABDOMEN: Soft, no distention. EXTREMITITES: No edema. Past Medical History Past Medical History: Cancer, Dialysis, Hypertension, Myocardial Infarction ([place]), Renal Disease Additional Past Medical History / Comment(s): DIALYSIS M,W. F; pt. is a poor historian. pt states he sees Dr. Chavis, but unsure of location of cancer. Patients son states that he could have cancer of his stomach possible Last Myocardial Infarction Date:: 01/21/2022 History of Any Multi-Drug Resistant Organisms: None Reported Additional Past Surgical History / Comment(s): FISTULA, right side kidney removal. Past Psychological History: No Psychological Hx Reported Smoking Status: Former smoker - Past Family History Mother Family Medical History: Dementia, Hypertension Medications and Allergies Home Medications Medication Instructions Recorded Confirmed Type amLODIPine [Norvasc] 10 mg PO DAILY 02/20/15 02/17/22 History Doxazosin [Cardura] 2 mg PO BID 10/15/20 02/17/22 History carvediloL [Coreg] 25 mg PO BID 10/15/20 02/17/22 History cloNIDine HCL [Catapres] 0.3 mg PO TID 10/15/20 02/17/22 History Sevelamer [Renvela] 1,600 mg PO TID-W/MEALS 10/24/20 02/17/22 History Auryxia 1gm/210mg 1 - 2 tab PO AC-TID 01/21/22 02/17/22 History Auryxia 1gm/210mg 1 tab PO DIRECTED PRN 01/21/22 02/17/22 History Pantoprazole [Protonix] 40 mg PO DAILY 01/21/22 02/17/22 History Levothyroxine Sodium [Synthroid] 25 mcg PO DAILY 02/17/22 02/17/22 History Allergies Allergy/AdvReac Type Severity Reaction Status Date / Time Sulfa (Sulfonamide Allergy Rash/Hives Verified 02/17/22 11:29 Antibiotics) Physical Exam Vitals: Vital Signs Temp Pulse Resp BP Pulse Ox 02/17/22 09:59 98 F 122 H 24 138/85 96 Intake and Output 02/16/22 02/17/22 02/17/22 22:59 06:59 14:59 Other: Weight 63.503 kg Results - Lab Results Most recent lab results Calcium 9.5 mg/dL (8.4-10.2) 02/17/22 10:57 02/17/22 10:57 02/17/22 10:57 Assessment and Plan Plan: Assessment: 1. End-stage renal disease maintained on hemodialysis on Monday schedule. Patient has left upper extremity AV fistula. 2. Hyperkalemia secondary to chronic kidney disease. Patient has chronic hyperkalemia and is maintained on veltassa outpatient. 3. GI bleed status post trans-fusion. Hemoglobin currently 7.3. 4. Recent CVA. 5. Recent GI bleed status post diverticular clubbing and embolization. 6. Coronary artery disease status post cardiac stenting. 7. Chronic kidney disease mineral bone disease. Plan: Patient needs hemodialysis today. He is currently being transferred to [facility]. I will give him a dose of IV DDAVP if still at this facility for the next one hour. 10 g lokelma once now. Thank you for the consultation. I will continue to follow the patient with you during his hospital stay.
[2022-02-17] MEDS ORDERED: DESMOPRESSIN ACETATE 20 MCG in SODIUM CHLORIDE 0.9% 50 ML IVPB ONE (12:30)
[2022-02-17 12:59] VITALS: BP 119/74; PULSE 106; RESP 19; TEMP 98.6
== END 2022-02-17 12:58 | disposition other institution (70) ==
LOC: EC 09:54
DX: K92.2 Gastrointestinal hemorrhage, unspecified (principal); I21.4 Non-ST elevation (NSTEMI) myocardial infarction; E87.70 Fluid overload, unspecified; I12.0 Hypertensive chronic kidney disease with stage 5 chronic kidney disease or end stage renal disease; N18.6 End stage renal disease; I25.2 Old myocardial infarction; I25.10 Atherosclerotic heart disease of native coronary artery without angina pectoris; Z99.2 Dependence on renal dialysis; Z87.891 Personal history of nicotine dependence; Z88.2 Allergy status to sulfonamides; Z79.899 Other long term (current) drug therapy
CPT/HCPCS: 36415; 93005; 83880; 80053; 82150; 83605; 83690; 84484; 85025; 85610; 85730; 99291; 96374; 96375; 96361; J2405; C9113

== ENCOUNTER → 2022-03-30 | Outpatient (CLI) | payer MEDICARE, OTHER ==
--- NOTE | 2022-03-31 13:10 | MR ---
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 Decreased left kidney function. Hx rt nephrectomy. COMPARISON: 03/01/2015 CT abdomen. TECHNIQUE: Multiplanar multi-sequence imaging was performed without contrast. IV Contrast: None FINDINGS: LOWER CHEST: Small right and trace left pleural effusion. There is cardiomegaly. ABDOMEN Liver: Increase in signal on out of phase shift imaging. Gallbladder and Bile ducts: The common duct measures up to 10 mm in thickness. Common hepatic duct me asures 11 mm in thickness. There is low signal layering debris within the gallbladder lumen. Pancreas: Unremarkable. Spleen: The spleen is enlarged measuring up to 14.3 cm in caudocranial dimension. Adrenal glands: Unremarkable. Kidneys: Left renal fossa large cystic mass which is heterogenous and demonstrates high T2 and some i ntrinsic high T1 signal. Previously in 2014 there is an atrophic kidney. This measures up to 12.7 x 9 .8 cm. Anterior to the left renal fossa is a intrinsic high T1 high T2 fluid collection/cystic mass m easuring 5.0 x 3.8 cm. Stomach and Bowel: Unremarkable as visualized. Peritoneum: No evidence of pneumoperitoneum. Trace free fluid is seen. Vasculature: No aortic aneurysm. Musculoskeletal: The osseous structures appear intact. Multilevel disc degeneration changes throughou t the spine. Abdominal wall: Unremarkable. IMPRESSION: 1. Motion and noncontrast limited exam, 2. Left renal fossa heterogenous complex cystic mass with a more anterior cystic mass appears separa te possibly from the left renal fossa mass with intrinsic high T1 signal suggesting hemorrhagic compo nent. The left kidney was atrophic in 2014 and now measures up to 12.7 cm. Underlying hemorrhagic/nec rotic renal cell carcinoma not entirely excluded. Further workup recommended. 3. Surgically absent right kidney. 4. Iron deposition within the liver. 5. Cardiomegaly with small right and trace left pleural effusion. 6. Mild splenomegaly. 7. Trace ascites. 8. Biliary sludge.
== END | disposition home or self-care (01) ==
LOC: RADMRIMAIN 09:10
PROVIDERS: ATTEND Urology
DX: D41.02 Neoplasm of uncertain behavior of left kidney (principal); N28.1 Cyst of kidney, acquired; J90 Pleural effusion, not elsewhere classified; N26.1 Atrophy of kidney (terminal); I51.7 Cardiomegaly; K83.8 Other specified diseases of biliary tract; K76.89 Other specified diseases of liver; R16.1 Splenomegaly, not elsewhere classified; R18.8 Other ascites; Z90.5 Acquired absence of kidney
CPT/HCPCS: 74181

== ENCOUNTER → 2022-06-27 | Outpatient (CLI) | payer MEDICARE, OTHER ==
--- NOTE | 2022-06-27 17:09 | NM ---
EXAMINATION TYPE: NM parathyroid DATE OF EXAM: 06/27/2022 COMPARISON: NONE HISTORY: Hypercalcemia. TECHNIQUE: Following administration of 23.6 mCi Tc99m Sestamibi. Anterior projection images of the neck and ches t were obtained minutes and 4 hours post injection FINDINGS: Thyroid tracer washout: Delayed images demonstrate near-complete tracer washout from the thyroid. Parathyroid uptake: None. The delayed images do not demonstrate any focal abnormal persistent uptake in the region of the parathyroid glands to suggest parathyroid adenoma. Normal uptake: There is physiological tracer uptake in the salivary glands. IMPRESSION: Normal parathyroid imaging study. No evidence for mediastinal uptake to suggest mediastinal parathyro id adenoma
[2022-06-28 09:44] LABS: Angiotensin-1 Converting Enz. 27 U/L (8-52)
[2022-06-28 15:55] LABS: Albumin 3.67 g/dL (3.80-4.90); Gamma Globulin 1.51 g/dL (0.70-1.50)
[2022-06-28 18:57] LABS: Vitamin D, 1, 25-Dihydroxy 41 pg/mL (20 - 79)
== END | disposition home or self-care (01) ==
LOC: RADNMMAIN 11:05
PROVIDERS: ATTEND Internal Medicine
DX: E83.52 Hypercalcemia (principal)
CPT/HCPCS: 82652; 82164; 84165; 82306; 86334; 78070; 36415; A9500

== ENCOUNTER → 2022-08-09 | Outpatient (CLI) | payer MEDICARE, OTHER ==
[2022-08-10 03:07] LABS: Protein, Total 7.1 g/dL (6.2-8.2)
[2022-08-10 21:23] LABS: Albumin 3.38 g/dL (3.80-4.90); Gamma Globulin 1.73 g/dL (0.70-1.50)
== END | disposition home or self-care (01) ==
LOC: LABWHC1 13:58
PROVIDERS: ATTEND Internal Medicine
DX: E83.52 Hypercalcemia (principal)
CPT/HCPCS: 36415; 82626; 82652; 84165; 86334

== ENCOUNTER 2022-08-11 12:54 | Inpatient (IN) | payer MEDICARE, OTHER ==
[2022-08-11] MEDS ORDERED: IPRATROPIUM-ALBUTEROL 3 ML NEB INHALATION STA (13:07)
[2022-08-11] MEDS ORDERED: SODIUM CHLORIDE 0.9% 1,000 ML IV STA (13:07)
[2022-08-11] MEDS ORDERED: SODIUM CHLORIDE 0.9% 500 ML 500 ML IV STA (13:07)
[2022-08-11 13:53] LABS: Albumin 3.5 g/dL (3.5-5.0); Magnesium 2.4 mg/dL (1.6-2.3); Potassium 3.8 mmol/L (3.5-5.1); Total Bilirubin 1.2 mg/dL (0.2-1.3); Total Protein 6.9 g/dL (6.3-8.2)
[2022-08-11 13:56] LABS: INR 1.2 (<1.2); Prothrombin Time 12.7 sec (9.0-12.0)
--- NOTE | 2022-08-11 14:02 | ED ---
Weakness HPI - General Chief complaint: Weakness Stated complaint: sob Time Seen by Provider: 08/11/22 13:07 Source: patient, EMS Mode of arrival: EMS Limitations: altered mental status - History of Present Illness Initial comments: This is a 66-year-old male. Recent end-stage renal failure on dialysis. Patient's presents today for evaluation of weakness not feeling well denies pain shortness breath denies other complaints. Patient states he cannot explain why he does not feel well he is no known sick contacts no nausea vomiting or diarrhea states he cannot feel himself today. MD Complaint: generalized weakness, lack of energy -: unknown Location: generalized Severity: moderate Severity scale (1-10): 4 Consistency: constant, intermittent Improves with: none Worsens with: none Context: recent illness, history of similar Associated Symptoms: confusion, loss of appetite, nausea/vomiting - Related Data Previous Rx's Medication Instructions Recorded Aspirin 81 mg PO DAILY tab 08/18/22 Atorvastatin [Lipitor] 40 mg PO DAILY tab 08/18/22 Cinacalcet [Sensipar] 30 mg PO WEEKLY tab 08/18/22 Clopidogrel [Plavix] 75 mg PO DAILY tab 08/18/22 Darbepoetin Juanpablo [Aranesp] 60 mcg SQ Q7D each 08/18/22 Famotidine [Pepcid] 20 mg PO DAILY tab 08/18/22 Heparin Sodium,Porcine [Heparin 5,000 unit SQ Q12HR #60 each 08/18/22 Sodium] Isosorbide Mononitrate ER [Imdur] 30 mg PO DAILY tab 08/18/22 Levothyroxine Sodium [Synthroid] 50 mcg PO DAILY@0630 tab 08/18/22 QUEtiapine [SEROquel] 25 mg PO DAILY tab 08/18/22 carvediloL [Coreg*] 12.5 mg PO BID-W/MEALS tab 08/18/22 hydrALAZINE HCL [Apresoline] 50 mg PO BID tab 08/18/22 Allergies Allergy/AdvReac Type Severity Reaction Status Date / Time Sulfa (Sulfonamide Allergy Rash/Hives Verified 08/11/22 16:42 Antibiotics) Review of Systems ROS Statement: Those systems with pertinent positive or pertinent negative responses have been documented in the HPI. ROS Other: All systems not noted in ROS Statement are negative. Past Medical History Past Medical History: Cancer, Dialysis, Hypertension, Myocardial Infarction ([place]), Renal Disease Additional Past Medical History / Comment(s): DIALYSIS M,W. F; pt. is a poor historian. pt states he sees Dr. Chavis, but unsure of location of cancer. Patients son states that he could have cancer of his stomach possible Last Myocardial Infarction Date:: 01/21/2022 History of Any Multi-Drug Resistant Organisms: None Reported Additional Past Surgical History / Comment(s): FISTULA, right side kidney removal. Past Psychological History: No Psychological Hx Reported Smoking Status: Former smoker - Past Family History Mother Family Medical History: Dementia, Hypertension General Exam Limitations: altered mental status General appearance: alert, lethargic, in distress Head exam: Present: atraumatic, normocephalic, normal inspection Eye exam: Present: normal appearance, PERRL, EOMI. Absent: scleral icterus, conjunctival injection, periorbital swelling ENT exam: Present: normal exam, mucous membranes dry Neck exam: Present: normal inspection. Absent: tenderness, meningismus, lymphadenopathy Respiratory exam: Present: normal lung sounds bilaterally. Absent: respiratory distress, wheezes, rales, rhonchi, stridor Cardiovascular Exam: Present: normal rhythm, tachycardia, normal heart sounds. Absent: systolic murmur, diastolic murmur, rubs, gallop, clicks GI/Abdominal exam: Present: soft, normal bowel sounds. Absent: distended, tend erness, guarding, rebound, rigid Extremities exam: Present: normal inspection, full ROM, normal capillary refill. Absent: tenderness, pedal edema, joint swelling, calf tenderness Back exam: Present: normal inspection Neurological exam: Present: alert, oriented X3, CN II-XII intact Psychiatric exam: Present: normal affect, normal mood Skin exam: Present: warm, dry, intact, normal color. Absent: rash Course Vital Signs 08/11/22 08/11/22 08/11/22 12:59 14:49 15:20 Temperature 98.8 F Pulse Rate 105 H 103 H 105 H Respiratory 20 20 Rate Blood Pressure 169/88 169/91 O2 Sat by Pulse 99 99 Oximetry 08/11/22 15:31 Temperature Pulse Rate 104 H Respiratory Rate Blood Pressure O2 Sat by Pulse Oximetry - Reevaluation(s) Reevaluation #1: 08/11/22 15:34 Medical records reviewed Reevaluation #2: 08/11/22 15:34 No current changes symptoms Reevaluation #3: 08/11/22 15:34 Patient informed results questions answered Reevaluation #4: 08/11/22 15:35 Was pt. sent in by a medical professional or institution? @ -no Did you speak to anyone other than the patient for history? @ -no Did you review nursing and triage notes? @ -agree Were old charts reviewed? @ -no Differential Diagnosis? @ -prior EKG interpreted by me (3pts min.)? @ -yes X-rays interpreted by me (1pt min.)? @ -yes CT interpreted by me (1pt min.)? @ -no U/S interpreted by me (1pt. min.)? @ -no What testing was considered but not performed? (CT, X-rays, U/S, labs)? Why? @ -no What meds were considered but not given? Why? @ -no Did you discuss the management of the patient with other professionals? @ -no Did you reconcile home meds? @ -no Was smoking cessation discussed for >3mins.? @ -no Was critical care preformed (if so, how long)? @ -no Were there social determinants of health that impacted care today? How? (Homelessness, low income, unemployed, alcoholism, drug addiction, transportation, low edu. Level, literacy, decrease access to med. care, [facility], rehab)? @ -no Was there de-escalation of care discussed even if they declined? (Discuss DNR or withdrawal of care, Hospice)? @ -no What co-morbidities impacted this encounter? (DM, HTN, Smoking, COPD, CAD, Cancer, CVA, Hep., AIDS, mental health diagnosis, sleep apnea, morbid obesity)? @ -none Was patient admitted / discharged? @ -66 male to be admitted for multiple medical issues, severe shortness of breath on dialysis elevated troponin on dialysis with chest pain weakness Admitted Undiagnosed new problem with uncertain prognosis? @ -no Drug Therapy requiring intensive monitoring for toxicity (Heparin, Nitro, Insulin, Cardizem)? @ -no Were any procedures done? @ -no Diagnosis/symptom? @ -Weakness and a CAD, elevated troponin Acute, or Chronic, or Acute on Chronic? @ -no Uncomplicated (without systemic symptoms) or Complicated (systemic symptoms)? @ -uncomplicated Side effects of treatment? @ -no Exacerbation, Progression, or Severe Exacerbation] @ -no Poses a threat to life or bodily function? @ -Yes with ACS Reevaluation #5: 08/11/22 15:35 Differential Weakness: Hypoglycemia, shock, sepsis, hyponatremia, anemia, infection, [place], ETOH, adverse medicine reaction, overdose, stroke, this is not meant to be an all-inclusive list. Medical Decision Making - Medical Decision Making 66 male DF for evaluation. Patient is renal failure on dialysis, patient will be admitted for monitoring, supportive care secondary to condition of weakness and not feeling well. Elevated troponin we will trend - Lab Data Result diagrams: 08/17/22 10:15 08/17/22 10:15 Lab Results 08/11/22 08/11/22 08/11/22 Range/Units 13:22 13:22 13:22 WBC 2.8 L (3.8-10.6) k/uL RBC 3.15 L (4.30-5.90) m/uL Hgb 8.2 L (13.0-17.5) gm/dL Hct 26.4 L (39.0-53.0) % MCV 83.8 (80.0-100.0) fL MCH 26.1 (25.0-35.0) pg MCHC 31.2 (31.0-37.0) g/dL RDW 17.3 H (11.5-15.5) % Plt Count 114 L (150-450) k/uL MPV 8.6 Neutrophils % 77 % Lymphocytes % 10 % Monocytes % 7 % Eosinophils % 3 % Basophils % 1 % Neutrophils # 2.1 (1.3-7.7) k/uL Lymphocytes # 0.3 L (1.0-4.8) k/uL Monocytes # 0.2 (0-1.0) k/uL Eosinophils # 0.1 (0-0.7) k/uL Basophils # 0.0 (0-0.2) k/uL Hypochromasia Marked Anisocytosis Slight PT 12.7 H (9.0-12.0) sec INR 1.2 H (<1.2) APTT 29.0 (22.0-30.0) sec D-Dimer 3.29 H (<0.60) mg/L FEU Sodium 140 (137-145) mmol/L Potassium 3.8 (3.5-5.1) mmol/L Chloride 99 (98-107) mmol/L Carbon Dioxide 30 (22-30) mmol/L Anion Gap 11 mmol/L BUN 49 H (9-20) mg/dL Creatinine 7.51 H* (0.66-1.25) mg/dL Est GFR (CKD-EPI)AfAm 8 (>60 ml/min/1.73 sqM) Est GFR (CKD-EPI)NonAf 7 (>60 ml/min/1.73 sqM) Glucose 88 (74-99) mg/dL Plasma Lactic Acid Kory (0.7-2.0) mmol/L Calcium 11.0 H (8.4-10.2) mg/dL Ionized Calcium Kim (4.5-5.3) mg/dL Phosphorus (2.5-4.5) mg/dL Magnesium 2.4 H (1.6-2.3) mg/dL Iron (65-175) ug/dL TIBC (228-460) ug/dL % Saturation (15.00-50.00) Transferrin (204.0-354.0) mg/dL Ferritin (22.0-322.0) ng/mL Total Bilirubin 1.2 (0.2-1.3) mg/dL AST 14 L (17-59) U/L ALT 10 (4-49) U/L Alkaline Phosphatase 69 (38-126) U/L Ammonia (<30) umol/L Troponin I (0.000-0.034) ng/mL NT-Pro-B Natriuret Pep pg/mL Total Protein 6.9 (6.3-8.2) g/dL Total Protein (PEP) (5.7-8.2) g/dL Albumin 3.5 (3.5-5.0) g/dL Albumin (PEP) (3.80-4.90) g/dL Vkpjo-9-Rqjgunaxl (0.10-0.40) g/dL Wcnpq-7-Cwexdherh (0.60-1.00) g/dL Beta Globulins (0.60-1.30) g/dL Gamma Globulins (0.70-1.50) g/dL PEP Interpretation Triglycerides (0.00-149.00) mg/dL Cholesterol (0.00-200.00) mg/dL LDL Cholesterol, Calc (0.0-131.0) mg/dL VLDL Cholesterol, Calc (5.00-40.00) mg/dL HDL Cholesterol (40.00-60.00) mg/dL Cholesterol/HDL Ratio Ratio Angiotensin Convert Enz (8-52) U/L Vitamin B12 (200.0-944.0) pg/mL Vitamin D 25-Hydroxy (30.0-100.0) ng/mL Vit D 1,25-Dihydroxy (20 - 79) pg/mL Folate (4.40-31.00) ng/mL TSH (0.465-4.680) mIU/L Free T4 (0.78-2.19) ng/dL PTH Intact (14.0-72.0) pg/mL Serum [place] Interpret Free [place] LC, Quant (0.33-1.94) mg/dL Free Lambda LC, Quant (0.57-2.63) mg/dL Hep Bs Antigen (Nonreactive) Hep Bs Antibody (Nonreactive) Hep Bs Antibody, Quant mIU/mL 08/11/22 08/11/22 08/11/22 Range/Units 13:22 13:22 17:34 WBC (3.8-10.6) k/uL RBC (4.30-5.90) m/uL Hgb (13.0-17.5) gm/dL Hct (39.0-53.0) % MCV (80.0-100.0) fL MCH (25.0-35.0) pg MCHC (31.0-37.0) g/dL RDW (11.5-15.5) % Plt Count (150-450) k/uL MPV Neutrophils % % Lymphocytes % % Monocytes % % Eosinophils % % Basophils % % Neutrophils # (1.3-7.7) k/uL Lymphocytes # (1.0-4.8) k/uL Monocytes # (0-1.0) k/uL Eosinophils # (0-0.7) k/uL Basophils # (0-0.2) k/uL Hypochromasia Anisocytosis PT (9.0-12.0) sec INR (<1.2) APTT (22.0-30.0) sec D-Dimer (<0.60) mg/L FEU Sodium (137-145) mmol/L Potassium (3.5-5.1) mmol/L Chloride (98-107) mmol/L Carbon Dioxide (22-30) mmol/L Anion Gap mmol/L BUN (9-20) mg/dL Creatinine (0.66-1.25) mg/dL Est GFR (CKD-EPI)AfAm (>60 ml/min/1.73 sqM) Est GFR (CKD-EPI)NonAf (>60 ml/min/1.73 sqM) Glucose (74-99) mg/dL Plasma Lactic Acid Kory 1.3 (0.7-2.0) mmol/L Calcium (8.4-10.2) mg/dL Ionized Calcium Kim (4.5-5.3) mg/dL Phosphorus (2.5-4.5) mg/dL Magnesium (1.6-2.3) mg/dL Iron (65-175) ug/dL TIBC (228-460) ug/dL % Saturation (15.00-50.00) Transferrin (204.0-354.0) mg/dL Ferritin (22.0-322.0) ng/mL Total Bilirubin (0.2-1.3) mg/dL AST (17-59) U/L ALT (4-49) U/L Alkaline Phosphatase (38-126) U/L Ammonia (<30) umol/L Troponin I 0.090 H* 0.113 H* (0.000-0.034) ng/mL NT-Pro-B Natriuret Pep pg/mL Total Protein (6.3-8.2) g/dL Total Protein (PEP) (5.7-8.2) g/dL Albumin (3.5-5.0) g/dL Albumin (PEP) (3.80-4.90) g/dL Zoanc-6-Xaaebiqut (0.10-0.40) g/dL Klusw-6-Usdmlkojc (0.60-1.00) g/dL Beta Globulins (0.60-1.30) g/dL Gamma Globulins (0.70-1.50) g/dL PEP Interpretation Triglycerides (0.00-149.00) mg/dL Cholesterol (0.00-200.00) mg/dL LDL Cholesterol, Calc (0.0-131.0) mg/dL VLDL Cholesterol, Calc (5.00-40.00) mg/dL HDL Cholesterol (40.00-60.00) mg/dL Cholesterol/HDL Ratio Ratio Angiotensin Convert Enz (8-52) U/L Vitamin B12 (200.0-944.0) pg/mL Vitamin D 25-Hydroxy (30.0-100.0) ng/mL Vit D 1,25-Dihydroxy (20 - 79) pg/mL Folate (4.40-31.00) ng/mL TSH (0.465-4.680) mIU/L Free T4 (0.78-2.19) ng/dL PTH Intact (14.0-72.0) pg/mL Serum [place] Interpret Free [place] LC, Quant (0.33-1.94) mg/dL Free Lambda LC, Quant (0.57-2.63) mg/dL Hep Bs Antigen (Nonreactive) Hep Bs Antibody (Nonreactive) Hep Bs Antibody, Quant mIU/mL 08/11/22 08/11/22 08/12/22 Range/Units 17:34 21:50 07:40 WBC (3.8-10.6) k/uL RBC (4.30-5.90) m/uL Hgb (13.0-17.5) gm/dL Hct (39.0-53.0) % MCV (80.0-100.0) fL MCH (25.0-35.0) pg MCHC (31.0-37.0) g/dL RDW (11.5-15.5) % Plt Count (150-450) k/uL MPV Neutrophils % % Lymphocytes % % Monocytes % % Eosinophils % % Basophils % % Neutrophils # (1.3-7.7) k/uL Lymphocytes # (1.0-4.8) k/uL Monocytes # (0-1.0) k/uL Eosinophils # (0-0.7) k/uL Basophils # (0-0.2) k/uL Hypochromasia Anisocytosis PT (9.0-12.0) sec INR (<1.2) APTT (22.0-30.0) sec D-Dimer (<0.60) mg/L FEU Sodium (137-145) mmol/L Potassium (3.5-5.1) mmol/L Chloride (98-107) mmol/L Carbon Dioxide (22-30) mmol/L Anion Gap mmol/L BUN (9-20) mg/dL Creatinine (0.66-1.25) mg/dL Est GFR (CKD-EPI)AfAm (>60 ml/min/1.73 sqM) Est GFR (CKD-EPI)NonAf (>60 ml/min/1.73 sqM) Glucose (74-99) mg/dL Plasma Lactic Acid Kory (0.7-2.0) mmol/L Calcium (8.4-10.2) mg/dL Ionized Calcium Kim (4.5-5.3) mg/dL Phosphorus (2.5-4.5) mg/dL Magnesium (1.6-2.3) mg/dL Iron (65-175) ug/dL TIBC (228-460) ug/dL % Saturation (15.00-50.00) Transferrin (204.0-354.0) mg/dL Ferritin (22.0-322.0) ng/mL Total Bilirubin (0.2-1.3) mg/dL AST (17-59) U/L ALT (4-49) U/L Alkaline Phosphatase (38-126) U/L Ammonia (<30) umol/L Troponin I 0.327 H* (0.000-0.034) ng/mL NT-Pro-B Natriuret Pep 647679 pg/mL Total Protein (6.3-8.2) g/dL Total Protein (PEP) (5.7-8.2) g/dL Albumin (3.5-5.0) g/dL Albumin (PEP) (3.80-4.90) g/dL Ibrwc-4-Vbcynbkdn (0.10-0.40) g/dL Jcdtb-2-Qmlcwavqg (0.60-1.00) g/dL Beta Globulins (0.60-1.30) g/dL Gamma Globulins (0.70-1.50) g/dL PEP Interpretation Triglycerides 113.00 (0.00-149.00) mg/dL Cholesterol 136.00 (0.00-200.00) mg/dL LDL Cholesterol, Calc 86.8 (0.0-131.0) mg/dL VLDL Cholesterol, Calc 22.60 (5.00-40.00) mg/dL HDL Cholesterol 26.60 L (40.00-60.00) mg/dL Cholesterol/HDL Ratio 5.11 Ratio Angiotensin Convert Enz (8-52) U/L Vitamin B12 (200.0-944.0) pg/mL Vitamin D 25-Hydroxy (30.0-100.0) ng/mL Vit D 1,25-Dihydroxy (20 - 79) pg/mL Folate (4.40-31.00) ng/mL TSH (0.465-4.680) mIU/L Free T4 (0.78-2.19) ng/dL PTH Intact (14.0-72.0) pg/mL Serum [place] Interpret Free [place] LC, Quant (0.33-1.94) mg/dL Free Lambda LC, Quant (0.57-2.63) mg/dL Hep Bs Antigen (Nonreactive) Hep Bs Antibody (Nonreactive) Hep Bs Antibody, Quant mIU/mL 08/12/22 08/12/22 08/12/22 Range/Units 07:40 07:40 07:40 WBC 3.9 (3.8-10.6) k/uL RBC 3.07 L (4.30-5.90) m/uL Hgb 8.1 L (13.0-17.5) gm/dL Hct 26.2 L (39.0-53.0) % MCV 85.6 (80.0-100.0) fL MCH 26.4 (25.0-35.0) pg MCHC 30.9 L (31.0-37.0) g/dL RDW 17.5 H (11.5-15.5) % Plt Count 128 L (150-450) k/uL MPV 8.7 Neutrophils % 80 % Lymphocytes % 9 % Monocytes % 7 % Eosinophils % 2 % Basophils % 0 % Neutrophils # 3.1 (1.3-7.7) k/uL Lymphocytes # 0.4 L (1.0-4.8) k/uL Monocytes # 0.3 (0-1.0) k/uL Eosinophils # 0.1 (0-0.7) k/uL Basophils # 0.0 (0-0.2) k/uL Hypochromasia Marked Anisocytosis Slight PT (9.0-12.0) sec INR (<1.2) APTT (22.0-30.0) sec D-Dimer (<0.60) mg/L FEU Sodium 141 (137-145) mmol/L Potassium 4.2 (3.5-5.1) mmol/L Chloride 99 (98-107) mmol/L Carbon Dioxide 29 (22-30) mmol/L Anion Gap 13 mmol/L BUN 59 H (9-20) mg/dL Creatinine 8.80 H* (0.66-1.25) mg/dL Est GFR (CKD-EPI)AfAm 7 (>60 ml/min/1.73 sqM) Est GFR (CKD-EPI)NonAf 6 (>60 ml/min/1.73 sqM) Glucose 86 (74-99) mg/dL Plasma Lactic Acid Kory (0.7-2.0) mmol/L Calcium 10.3 H (8.4-10.2) mg/dL Ionized Calcium Kim (4.5-5.3) mg/dL Phosphorus 5.3 H (2.5-4.5) mg/dL Magnesium 2.4 H (1.6-2.3) mg/dL Iron (65-175) ug/dL TIBC (228-460) ug/dL % Saturation (15.00-50.00) Transferrin (204.0-354.0) mg/dL Ferritin (22.0-322.0) ng/mL Total Bilirubin 1.6 H (0.2-1.3) mg/dL AST 19 (17-59) U/L ALT 11 (4-49) U/L Alkaline Phosphatase 67 (38-126) U/L Ammonia (<30) umol/L Troponin I (0.000-0.034) ng/mL NT-Pro-B Natriuret Pep pg/mL Total Protein 6.7 (6.3-8.2) g/dL Total Protein (PEP) (5.7-8.2) g/dL Albumin 3.3 L (3.5-5.0) g/dL Albumin (PEP) (3.80-4.90) g/dL Edeph-9-Ysxdmfxxl (0.10-0.40) g/dL Yzzii-9-Fsiacjptn (0.60-1.00) g/dL Beta Globulins (0.60-1.30) g/dL Gamma Globulins (0.70-1.50) g/dL PEP Interpretation Triglycerides (0.00-149.00) mg/dL Cholesterol (0.00-200.00) mg/dL LDL Cholesterol, Calc (0.0-131.0) mg/dL VLDL Cholesterol, Calc (5.00-40.00) mg/dL HDL Cholesterol (40.00-60.00) mg/dL Cholesterol/HDL Ratio Ratio Angiotensin Convert Enz (8-52) U/L Vitamin B12 (200.0-944.0) pg/mL Vitamin D 25-Hydroxy (30.0-100.0) ng/mL Vit D 1,25-Dihydroxy (20 - 79) pg/mL Folate (4.40-31.00) ng/mL TSH 16.800 H (0.465-4.680) mIU/L Free T4 1.36 (0.78-2.19) ng/dL PTH Intact (14.0-72.0) pg/mL Serum [place] Interpret Free [place] LC, Quant (0.33-1.94) mg/dL Free Lambda LC, Quant (0.57-2.63) mg/dL Hep Bs Antigen (Nonreactive) Hep Bs Antibody (Nonreactive) Hep Bs Antibody, Quant mIU/mL 08/12/22 08/12/22 08/12/22 Range/Units 10:49 10:49 10:49 WBC (3.8-10.6) k/uL RBC (4.30-5.90) m/uL Hgb (13.0-17.5) gm/dL Hct (39.0-53.0) % MCV (80.0-100.0) fL MCH (25.0-35.0) pg MCHC (31.0-37.0) g/dL RDW (11.5-15.5) % Plt Count (150-450) k/uL MPV Neutrophils % % Lymphocytes % % Monocytes % % Eosinophils % % Basophils % % Neutrophils # (1.3-7.7) k/uL Lymphocytes # (1.0-4.8) k/uL Monocytes # (0-1.0) k/uL Eosinophils # (0-0.7) k/uL Basophils # (0-0.2) k/uL Hypochromasia Anisocytosis PT (9.0-12.0) sec INR (<1.2) APTT (22.0-30.0) sec D-Dimer (<0.60) mg/L FEU Sodium (137-145) mmol/L Potassium (3.5-5.1) mmol/L Chloride (98-107) mmol/L Carbon Dioxide (22-30) mmol/L Anion Gap mmol/L BUN (9-20) mg/dL Creatinine (0.66-1.25) mg/dL Est GFR (CKD-EPI)AfAm (>60 ml/min/1.73 sqM) Est GFR (CKD-EPI)NonAf (>60 ml/min/1.73 sqM) Glucose (74-99) mg/dL Plasma Lactic Acid Kory (0.7-2.0) mmol/L Calcium (8.4-10.2) mg/dL Ionized Calcium Kim (4.5-5.3) mg/dL Phosphorus (2.5-4.5) mg/dL Magnesium (1.6-2.3) mg/dL Iron 25 L (65-175) ug/dL TIBC 158 L (228-460) ug/dL % Saturation 15.61 (15.00-50.00) Transferrin 113.0 L (204.0-354.0) mg/dL Ferritin 3974.0 H (22.0-322.0) ng/mL Total Bilirubin (0.2-1.3) mg/dL AST (17-59) U/L ALT (4-49) U/L Alkaline Phosphatase (38-126) U/L Ammonia (<30) umol/L Troponin I (0.000-0.034) ng/mL NT-Pro-B Natriuret Pep pg/mL Total Protein (6.3-8.2) g/dL Total Protein (PEP) (5.7-8.2) g/dL Albumin (3.5-5.0) g/dL Albumin (PEP) (3.80-4.90) g/dL Yslgt-8-Ymhoaxwzb (0.10-0.40) g/dL Irirx-5-Xygtbqiis (0.60-1.00) g/dL Beta Globulins (0.60-1.30) g/dL Gamma Globulins (0.70-1.50) g/dL PEP Interpretation Triglycerides (0.00-149.00) mg/dL Cholesterol (0.00-200.00) mg/dL LDL Cholesterol, Calc (0.0-131.0) mg/dL VLDL Cholesterol, Calc (5.00-40.00) mg/dL HDL Cholesterol (40.00-60.00) mg/dL Cholesterol/HDL Ratio Ratio Angiotensin Convert Enz 43 (8-52) U/L Vitamin B12 (200.0-944.0) pg/mL Vitamin D 25-Hydroxy 63.7 (30.0-100.0) ng/mL Vit D 1,25-Dihydroxy 152 H (20 - 79) pg/mL Folate (4.40-31.00) ng/mL TSH (0.465-4.680) mIU/L Free T4 (0.78-2.19) ng/dL PTH Intact (14.0-72.0) pg/mL Serum [place] Interpret Free [place] LC, Quant (0.33-1.94) mg/dL Free Lambda LC, Quant (0.57-2.63) mg/dL Hep Bs Antigen Nonreactive (Nonreactive) Hep Bs Antibody Nonreactive (Nonreactive) Hep Bs Antibody, Quant 3.5 mIU/mL 08/12/22 08/12/22 08/12/22 Range/Units 10:49 10:49 10:49 WBC (3.8-10.6) k/uL RBC (4.30-5.90) m/uL Hgb (13.0-17.5) gm/dL Hct (39.0-53.0) % MCV (80.0-100.0) fL MCH (25.0-35.0) pg MCHC (31.0-37.0) g/dL RDW (11.5-15.5) % Plt Count (150-450) k/uL MPV Neutrophils % % Lymphocytes % % Monocytes % % Eosinophils % % Basophils % % Neutrophils # (1.3-7.7) k/uL Lymphocytes # (1.0-4.8) k/uL Monocytes # (0-1.0) k/uL Eosinophils # (0-0.7) k/uL Basophils # (0-0.2) k/uL Hypochromasia Anisocytosis PT (9.0-12.0) sec INR (<1.2) APTT (22.0-30.0) sec D-Dimer (<0.60) mg/L FEU Sodium (137-145) mmol/L Potassium (3.5-5.1) mmol/L Chloride (98-107) mmol/L Carbon Dioxide (22-30) mmol/L Anion Gap mmol/L BUN (9-20) mg/dL Creatinine (0.66-1.25) mg/dL Est GFR (CKD-EPI)AfAm (>60 ml/min/1.73 sqM) Est GFR (CKD-EPI)NonAf (>60 ml/min/1.73 sqM) Glucose (74-99) mg/dL Plasma Lactic Acid Kory (0.7-2.0) mmol/L Calcium (8.4-10.2) mg/dL Ionized Calcium Kim (4.5-5.3) mg/dL Phosphorus (2.5-4.5) mg/dL Magnesium (1.6-2.3) mg/dL Iron (65-175) ug/dL TIBC (228-460) ug/dL % Saturation (15.00-50.00) Transferrin (204.0-354.0) mg/dL Ferritin (22.0-322.0) ng/mL Total Bilirubin (0.2-1.3) mg/dL AST (17-59) U/L ALT (4-49) U/L Alkaline Phosphatase (38-126) U/L Ammonia (<30) umol/L Troponin I (0.000-0.034) ng/mL NT-Pro-B Natriuret Pep pg/mL Total Protein (6.3-8.2) g/dL Total Protein (PEP) 6.9 (5.7-8.2) g/dL Albumin (3.5-5.0) g/dL Albumin (PEP) 3.45 L (3.80-4.90) g/dL Eipnp-3-Xtpqhdajf 0.50 H (0.10-0.40) g/dL Osprn-9-Rdfsglwjc 0.75 (0.60-1.00) g/dL Beta Globulins 0.63 (0.60-1.30) g/dL Gamma Globulins 1.56 H (0.70-1.50) g/dL PEP Interpretation Triglycerides (0.00-149.00) mg/dL Cholesterol (0.00-200.00) mg/dL LDL Cholesterol, Calc (0.0-131.0) mg/dL VLDL Cholesterol, Calc (5.00-40.00) mg/dL HDL Cholesterol (40.00-60.00) mg/dL Cholesterol/HDL Ratio Ratio Angiotensin Convert Enz (8-52) U/L Vitamin B12 (200.0-944.0) pg/mL Vitamin D 25-Hydroxy (30.0-100.0) ng/mL Vit D 1,25-Dihydroxy (20 - 79) pg/mL Folate (4.40-31.00) ng/mL TSH (0.465-4.680) mIU/L Free T4 (0.78-2.19) ng/dL PTH Intact 155.0 H (14.0-72.0) pg/mL Serum [place] Interpret Free [place] LC, Quant 26.63 H (0.33-1.94) mg/dL Free Lambda LC, Quant 25.21 H (0.57-2.63) mg/dL Hep Bs Antigen (Nonreactive) Hep Bs Antibody (Nonreactive) Hep Bs Antibody, Quant mIU/mL 08/12/22 08/12/22 08/12/22 Range/Units 13:16 13:16 13:16 WBC (3.8-10.6) k/uL RBC (4.30-5.90) m/uL Hgb (13.0-17.5) gm/dL Hct (39.0-53.0) % MCV (80.0-100.0) fL MCH (25.0-35.0) pg MCHC (31.0-37.0) g/dL RDW (11.5-15.5) % Plt Count (150-450) k/uL MPV Neutrophils % % Lymphocytes % % Monocytes % % Eosinophils % % Basophils % % Neutrophils # (1.3-7.7) k/uL Lymphocytes # (1.0-4.8) k/uL Monocytes # (0-1.0) k/uL Eosinophils # (0-0.7) k/uL Basophils # (0-0.2) k/uL Hypochromasia Anisocytosis PT (9.0-12.0) sec INR (<1.2) APTT (22.0-30.0) sec D-Dimer (<0.60) mg/L FEU Sodium (137-145) mmol/L Potassium (3.5-5.1) mmol/L Chloride (98-107) mmol/L Carbon Dioxide (22-30) mmol/L Anion Gap mmol/L BUN (9-20) mg/dL Creatinine (0.66-1.25) mg/dL Est GFR (CKD-EPI)AfAm (>60 ml/min/1.73 sqM) Est GFR (CKD-EPI)NonAf (>60 ml/min/1.73 sqM) Glucose (74-99) mg/dL Plasma Lactic Acid Kory (0.7-2.0) mmol/L Calcium (8.4-10.2) mg/dL Ionized Calcium Kim 4.4 L (4.5-5.3) mg/dL Phosphorus (2.5-4.5) mg/dL Magnesium (1.6-2.3) mg/dL Iron (65-175) ug/dL TIBC (228-460) ug/dL % Saturation (15.00-50.00) Transferrin (204.0-354.0) mg/dL Ferritin (22.0-322.0) ng/mL Total Bilirubin (0.2-1.3) mg/dL AST (17-59) U/L ALT (4-49) U/L Alkaline Phosphatase (38-126) U/L Ammonia <9 (<30) umol/L Troponin I (0.000-0.034) ng/mL NT-Pro-B Natriuret Pep pg/mL Total Protein (6.3-8.2) g/dL Total Protein (PEP) (5.7-8.2) g/dL Albumin (3.5-5.0) g/dL Albumin (PEP) (3.80-4.90) g/dL Ohlpb-9-Ichqkvisj (0.10-0.40) g/dL Jhpvs-6-Otbrncejd (0.60-1.00) g/dL Beta Globulins (0.60-1.30) g/dL Gamma Globulins (0.70-1.50) g/dL PEP Interpretation Triglycerides (0.00-149.00) mg/dL Cholesterol (0.00-200.00) mg/dL LDL Cholesterol, Calc (0.0-131.0) mg/dL VLDL Cholesterol, Calc (5.00-40.00) mg/dL HDL Cholesterol (40.00-60.00) mg/dL Cholesterol/HDL Ratio Ratio Angiotensin Convert Enz (8-52) U/L Vitamin B12 960.0 H (200.0-944.0) pg/mL Vitamin D 25-Hydroxy (30.0-100.0) ng/mL Vit D 1,25-Dihydroxy (20 - 79) pg/mL Folate 16.80 (4.40-31.00) ng/mL TSH (0.465-4.680) mIU/L Free T4 (0.78-2.19) ng/dL PTH Intact (14.0-72.0) pg/mL Serum [place] Interpret Free [place] LC, Quant (0.33-1.94) mg/dL Free Lambda LC, Quant (0.57-2.63) mg/dL Hep Bs Antigen (Nonreactive) Hep Bs Antibody (Nonreactive) Hep Bs Antibody, Quant mIU/mL 08/12/22 08/13/22 Range/Units 16:49 07:13 WBC 3.8 (3.8-10.6) k/uL RBC 2.95 L (4.30-5.90) m/uL Hgb 7.6 L (13.0-17.5) gm/dL Hct 24.9 L (39.0-53.0) % MCV 84.3 (80.0-100.0) fL MCH 25.8 (25.0-35.0) pg MCHC 30.6 L (31.0-37.0) g/dL RDW 17.4 H (11.5-15.5) % Plt Count 110 L (150-450) k/uL MPV 8.9 Neutrophils % % Lymphocytes % % Monocytes % % Eosinophils % % Basophils % % Neutrophils # (1.3-7.7) k/uL Lymphocytes # (1.0-4.8) k/uL Monocytes # (0-1.0) k/uL Eosinophils # (0-0.7) k/uL Basophils # (0-0.2) k/uL Hypochromasia Marked Anisocytosis Slight PT (9.0-12.0) sec INR (<1.2) APTT (22.0-30.0) sec D-Dimer (<0.60) mg/L FEU Sodium 136 L (137-145) mmol/L Potassium 3.6 (3.5-5.1) mmol/L Chloride 95 L (98-107) mmol/L Carbon Dioxide 32 H (22-30) mmol/L Anion Gap 9 mmol/L BUN 35 H (9-20) mg/dL Creatinine 5.11 H (0.66-1.25) mg/dL Est GFR (CKD-EPI)AfAm 13 (>60 ml/min/1.73 sqM) Est GFR (CKD-EPI)NonAf 11 (>60 ml/min/1.73 sqM) Glucose 83 (74-99) mg/dL Plasma Lactic Acid Kory (0.7-2.0) mmol/L Calcium 10.0 (8.4-10.2) mg/dL Ionized Calcium Kim (4.5-5.3) mg/dL Phosphorus 5.6 H (2.5-4.5) mg/dL Magnesium (1.6-2.3) mg/dL Iron (65-175) ug/dL TIBC (228-460) ug/dL % Saturation (15.00-50.00) Transferrin (204.0-354.0) mg/dL Ferritin (22.0-322.0) ng/mL Total Bilirubin (0.2-1.3) mg/dL AST (17-59) U/L ALT (4-49) U/L Alkaline Phosphatase (38-126) U/L Ammonia (<30) umol/L Troponin I (0.000-0.034) ng/mL NT-Pro-B Natriuret Pep pg/mL Total Protein (6.3-8.2) g/dL Total Protein (PEP) (5.7-8.2) g/dL Albumin (3.5-5.0) g/dL Albumin (PEP) (3.80-4.90) g/dL Gsitx-3-Zfmviypyk (0.10-0.40) g/dL Lhyll-1-Qbmkbwdbn (0.60-1.00) g/dL Beta Globulins (0.60-1.30) g/dL Gamma Globulins (0.70-1.50) g/dL PEP Interpretation Triglycerides (0.00-149.00) mg/dL Cholesterol (0.00-200.00) mg/dL LDL Cholesterol, Calc (0.0-131.0) mg/dL VLDL Cholesterol, Calc (5.00-40.00) mg/dL HDL Cholesterol (40.00-60.00) mg/dL Cholesterol/HDL Ratio Ratio Angiotensin Convert Enz (8-52) U/L Vitamin B12 (200.0-944.0) pg/mL Vitamin D 25-Hydroxy (30.0-100.0) ng/mL Vit D 1,25-Dihydroxy (20 - 79) pg/mL Folate (4.40-31.00) ng/mL TSH (0.465-4.680) mIU/L Free T4 (0.78-2.19) ng/dL PTH Intact (14.0-72.0) pg/mL Serum [place] Interpret Free [place] LC, Quant (0.33-1.94) mg/dL Free Lambda LC, Quant (0.57-2.63) mg/dL Hep Bs Antigen (Nonreactive) Hep Bs Antibody (Nonreactive) Hep Bs Antibody, Quant mIU/mL - Radiology Data Radiology results: report reviewed (Chest x-rays negative for acute disease), image reviewed Disposition Clinical Impression: Dehydration, ZACK (acute kidney injury), Chronic renal failure, Weakness, End- stage renal disease on hemodialysis, Renal failure (ARF), acute on chronic, Arm swelling, Chronic anemia Disposition: ADMITTED IP TO THIS HOSP Condition: Fair Is patient prescribed a controlled substance at d/c from ED?: No Time of Disposition: 15:30
[2022-08-11 14:03] LABS: Anisocytosis Slight; Basophils % (A) 1 %; Eosinophils # (A) 0.1 k/uL (0-0.7); Eosinophils % (A) 3 %; HCT 26.4 % (39.0-53.0); HGB 8.2 gm/dL (13.0-17.5); Hypochromasia Marked; Lymphocytes # (A) 0.3 k/uL (1.0-4.8); Lymphocytes % (A) 10 %; MCH 26.1 pg (25.0-35.0); MCHC 31.2 g/dL (31.0-37.0); MCV 83.8 fL (80.0-100.0); Mean Platelet Volume 8.6; Monocytes # (A) 0.2 k/uL (0-1.0); Monocytes % (A) 7 %; Neutrophils # (A) 2.1 k/uL (1.3-7.7); Neutrophils % (A) 77 %; Platelet Count 114 k/uL (150-450); RBC 3.15 m/uL (4.30-5.90); RDW 17.3 % (11.5-15.5); WBC 2.8 k/uL (3.8-10.6)
--- NOTE | 2022-08-11 14:18 | XR ---
EXAMINATION TYPE: XR chest 2V DATE OF EXAM: 08/11/2022 1:59 PM COMPARISON: Chest radiographs from 01/21/2022 TECHNIQUE: XR chest 2V Frontal and lateral views of the chest. CLINICAL INDICATION:Male, 66 years old with history of difficulty breathing; FINDINGS: Lungs/Pleura: Blunting of the right costophrenic angle with associated atelectasis. There is no evide nce of focal consolidation, or pneumothorax. Pulmonary vascularity: Pulmonary vascular congestion. Heart/mediastinum: Cardiomediastinal silhouette is enlarged and stable. Atherosclerotic calcificatio ns are seen in the aorta. Musculoskeletal: No acute osseous pathology. IMPRESSION: Cardiomegaly, pulmonary vascular congestion and bilateral pleural effusions. Correlate with BNP for c ongestive heart failure.
[2022-08-11] MEDS ORDERED: NALOXONE 0.4 MG/ML 1 ML VIAL IV PRN (15:26)
[2022-08-11] MEDS ORDERED: MORPHINE SULFATE 4 MG/ML SYRINGE IV PRN (15:26)
[2022-08-11] MEDS ORDERED: ONDANSETRON 4 MG/2 ML VIAL IVP PRN (15:26)
--- NOTE | 2022-08-11 16:51 | P.CRDCN ---
History of Present Illness Consult date: 08/11/22 History of present illness: History of Present Illness: The patient is a 66-year-old male with known history of hypertension, end-stage renal disease, history of CAD who presented with symptoms of fatigue. He has dyspnea on exertion that is chronic as well as symptoms of fatigue. He denies any chest discomfort, dizziness or palpitations. On presentation his lab work were obtained and showed minimal troponin elevation subsequently an EKG was done at 4:00 PM that showed sinus mechanism, LVH, IVCD with nonspecific T-wave and ST changes laterally. The patient has a known history of CAD, presented in January 2022 with symptoms of chest discomfort and underwent cardiac catheterization by Dr. James and received stenting to the LAD. According to him he had no further chest discomfort since that time. He has chronic peripheral edema, unchanged. He denies any clear PND or orthopnea. He had his last dialysis 2 days ago. On presentation he was hypertensive. The list of his medication is not clear. The patient has not been seen in the office following his initial presentation in January. At that time he had an episode of GI bleeding, hypotension and respiratory failure. His echocardiogram showed an ejection fraction of 35%. The patient stop smoking about 8 years ago. Medications: The list is not available Review of Systems: Respiratory: Chronic dyspnea on exertion but no recent wheezing or cough GI: No nausea or vomiting . No history of peptic ulcer disease. No recent GI bleed. : He is on hemodialysis for 8 years Nervous System: No stroke or seizure. Physical Examination: 66-year-old male alert appears to be chronically ill ,Blood pressure 169/90, Heart rate 105 Head: Normocephalic. Eyes: Sclerae nonicteric. Neck: Good carotid upstroke, no bruit, no jugular venous distention. Lungs: Clear to auscultation. Heart: Regular rate and rhythm, S1-S2, no S3, no rub. Systolic ejection murmur 3/6 with holosystolic murmur at the apex. Abdomen: Soft nontender, positive bowel sounds no organomegaly. Extremities: +1-2 edema, intact distal pulses. Fistula noted in the left upper extremity Labs: Hemoglobin 8.2, WBC 2.8. Potassium 3.8. BUN 49, creatinine 7.51. Troponin 0.09. Chest x-ray with evidence of pleural effusion and congestion EKG: Sinus mechanism with LVH, IVCD and ST segment changes on the lateral leads probably be related to LVH Impression: 1. Fatigue and lack of energy probably secondary to end-stage renal disease 2. Mild troponin elevation, no evidence of acute coronary syndrome most likely secondary to renal status 3. History of CAD with prior stenting in January 4. End-stage renal disease on hemodialysis 5. Ischemic cardiac cardiomyopathy 6. History of hypertension Plan: 1. Start aspirin, Plavix and statin 2. Add hydralazine and nitrates 3. Obtain an echocardiogram with Doppler 4. Serial enzymes 5. Depending on his progress further recommendations will be made, thank you for this consult we will follow with you. Past Medical History Past Medical History: Cancer, Dialysis, Hypertension, Myocardial Infarction ([place]), Renal Disease Additional Past Medical History / Comment(s): DIALYSIS M,[place]; pt. is a poor historian. pt states he sees Dr. Chavis, but unsure of location of cancer. Patients son states that he could have cancer of his stomach possible Last Myocardial Infarction Date:: 01/21/2022 History of Any Multi-Drug Resistant Organisms: None Reported Additional Past Surgical History / Comment(s): FISTULA, right side kidney removal. Past Psychological History: No Psychological Hx Reported Smoking Status: Former smoker - Past Family History Mother Family Medical History: Dementia, Hypertension Medications and Allergies Home Medications Medication Instructions Recorded Confirmed Type No Known Home Medications 08/11/22 08/11/22 History Allergies Allergy/AdvReac Type Severity Reaction Status Date / Time Sulfa (Sulfonamide Allergy Rash/Hives Verified 08/11/22 16:42 Antibiotics) Physical Exam Vitals: Vital Signs Temp Pulse Resp BP Pulse Ox 08/11/22 15:31 104 H 08/11/22 15:20 105 H 08/11/22 14:49 103 H 20 169/91 99 08/11/22 12:59 98.8 F 105 H 20 169/88 99 Intake and Output 08/11/22 08/11/22 08/11/22 06:59 14:59 22:59 Other: Weight 72.575 kg Results 08/11/22 13:22 08/11/22 13:22 Cardiac Enzymes 08/11/22 08/11/22 Range/Units 13:22 13:22 AST 14 L (17-59) U/L Troponin I 0.090 H* (0.000-0.034) ng/mL Coagulation 08/11/22 Range/Units 13:22 PT 12.7 H (9.0-12.0) sec APTT 29.0 (22.0-30.0) sec CBC 08/11/22 Range/Units 13:22 WBC 2.8 L (3.8-10.6) k/uL RBC 3.15 L (4.30-5.90) m/uL Hgb 8.2 L (13.0-17.5) gm/dL Hct 26.4 L (39.0-53.0) % Plt Count 114 L (150-450) k/uL Comprehensive Metabolic Panel 08/11/22 Range/Units 13:22 Sodium 140 (137-145) mmol/L Potassium 3.8 (3.5-5.1) mmol/L Chloride 99 (98-107) mmol/L Carbon Dioxide 30 (22-30) mmol/L BUN 49 H (9-20) mg/dL Creatinine 7.51 H* (0.66-1.25) mg/dL Glucose 88 (74-99) mg/dL Calcium 11.0 H (8.4-10.2) mg/dL AST 14 L (17-59) U/L ALT 10 (4-49) U/L Alkaline Phosphatase 69 (38-126) U/L Total Protein 6.9 (6.3-8.2) g/dL Albumin 3.5 (3.5-5.0) g/dL Current Medications Generic Name Dose Route Start Last Admin Trade Name Freq PRN Reason Stop Dose Admin Aspirin 81 mg 08/11/22 16:45 Aspirin 81 Mg PO DAILY [facility] Atorvastatin Calcium 40 mg 08/11/22 16:45 Atorvastatin 40 Mg Tab PO DAILY [facility] Clopidogrel Bisulfate 75 mg 08/11/22 16:45 Clopidogrel 75 Mg Tab PO DAILY [facility] Sodium Chloride 1,000 mls @ 130 mls/hr 08/11/22 13:07 08/11/22 14:50 Saline 0.9% IV 08/11/22 20:48 Not Given .[id number] STA Sodium Chloride 1,000 mls @ 20 mls/hr 08/11/22 15:30 Saline 0.9% IV .Q24H [facility] Metoprolol Tartrate 25 mg 08/11/22 21:00 Metoprolol Tartrate 25 Mg Tab PO BID [facility]IA[facility] Morphine Sulfate 4 mg 08/11/22 15:26 Morphine Sulfate 4 Mg/Ml Syringe IV Q4HR PRN Severe Pain (Scale 7 to 10) Naloxone HCl 0.2 mg 08/11/22 15:26 Naloxone 0.4 Mg/Ml 1 Ml Vial IV Q2M PRN Opioid Reversal Ondansetron HCl 4 mg 08/11/22 15:26 Ondansetron 4 Mg/2 Ml Vial IVP Q8HR PRN Nausea And Vomiting Intake and Output 08/11/22 08/11/22 08/11/22 06:59 14:59 22:59 Other: Weight 72.575 kg Patient Weight 08/12/22 06:59 Weight 72.575 kg 08/11/22 13:22 08/11/22 13:22
[2022-08-11] MEDS: hydrALAZINE HCL 25 MG TAB PO SCH (19:36)
[2022-08-11] MEDS: ATORVASTATIN 40 MG TAB PO SCH (19:36)
[2022-08-11] MEDS: ASPIRIN 81 MG PO SCH (19:36)
[2022-08-11] MEDS: METOPROLOL TARTRATE 25 MG TAB PO SCH (19:36)
[2022-08-11] MEDS: CLOPIDOGREL 75 MG TAB PO SCH (19:36)
[2022-08-11] MEDS: ISOSORBIDE MONONITRATE ER 30 MG TAB.ER.24H PO SCH (19:36)
[2022-08-11] MEDS: SODIUM CHLORIDE 0.9% 1,000 ML IV SCH (19:37)
[2022-08-12 02:11] LABS: Chol/HDL Ratio 5.11 Ratio; LDL Cholesterol,Calculated 86.8 mg/dL (0.0-131.0)
[2022-08-12 08:49] LABS: Anisocytosis Slight; Basophils % (A) 0 %; Eosinophils # (A) 0.1 k/uL (0-0.7); Eosinophils % (A) 2 %; HCT 26.2 % (39.0-53.0); HGB 8.1 gm/dL (13.0-17.5); Hypochromasia Marked; Lymphocytes # (A) 0.4 k/uL (1.0-4.8); Lymphocytes % (A) 9 %; MCH 26.4 pg (25.0-35.0); MCHC 30.9 g/dL (31.0-37.0); MCV 85.6 fL (80.0-100.0); Mean Platelet Volume 8.7; Monocytes # (A) 0.3 k/uL (0-1.0); Monocytes % (A) 7 %; Neutrophils # (A) 3.1 k/uL (1.3-7.7); Neutrophils % (A) 80 %; Platelet Count 128 k/uL (150-450); RBC 3.07 m/uL (4.30-5.90); RDW 17.5 % (11.5-15.5); WBC 3.9 k/uL (3.8-10.6)
[2022-08-12] MEDS: METOPROLOL TARTRATE 25 MG TAB PO SCH (08:53)
[2022-08-12] MEDS: hydrALAZINE HCL 25 MG TAB PO SCH (08:53)
[2022-08-12] MEDS: ATORVASTATIN 40 MG TAB PO SCH (08:56)
[2022-08-12] MEDS: ISOSORBIDE MONONITRATE ER 30 MG TAB.ER.24H PO SCH (08:56)
[2022-08-12] MEDS: ASPIRIN 81 MG PO SCH (08:56)
[2022-08-12] MEDS: CLOPIDOGREL 75 MG TAB PO SCH (08:56)
[2022-08-12 09:16] LABS: Albumin 3.3 g/dL (3.5-5.0); Calcium 10.3 mg/dL (8.4-10.2); Magnesium 2.4 mg/dL (1.6-2.3); Phosphorus 5.3 mg/dL (2.5-4.5); Potassium 4.2 mmol/L (3.5-5.1); Total Bilirubin 1.6 mg/dL (0.2-1.3); Total Protein 6.7 g/dL (6.3-8.2)
[2022-08-12] MEDS: QUEtiapine 25 MG TAB PO SCH (09:28)
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
--- NOTE | 2022-08-12 11:25 | P.PN ---
Subjective HISTORY OF PRESENT ILLNESS: The patient is a 66-year-old male with known history of hypertension, end-stage renal disease, history of CAD who presented with symptoms of fatigue. He has dyspnea on exertion that is chronic as well as symptoms of fatigue. He denies any chest discomfort, dizziness or palpitations. On presentation his lab work were obtained and showed minimal troponin elevation subsequently an EKG was done at 4:00 PM that showed sinus mechanism, LVH, IVCD with nonspecific T-wave and ST changes laterally. The patient has a known history of CAD, presented in January 2022 with symptoms of chest discomfort and underwent cardiac catheterization by Dr. James and received stenting to the LAD. According to him he had no further chest discomfort since that time. He has chronic peripheral edema, unchanged. He denies any clear PND or orthopnea. He had his last dialysis 2 days ago. On presentation he was hypertensive. The list of his medication is not clear. The patient has not been seen in the office following his initial presentation in January. At that time he had an episode of GI bleeding, hypotension and respiratory failure. His echocardiogram showed an ejection fraction of 35%. The patient stop smoking about 8 years ago. Medications: The list is not available 08/12/2022 Patient examined this morning at the bedside. She denies chest pain or pressure. He denies shortness of breath. He is currently receiving hemodialysis. Blood pressures remain elevated with a systolic in the 160s. PHYSICAL EXAM: VITAL SIGNS: Reviewed. GENERAL: Well-developed in no acute distress. NECK: Supple. No JVD or thyromegaly LUNGS: Respirations even and unlabored. Lungs essentially clear to auscultation bilaterally. HEART: Regular rate and rhythm. S1 and S2 heard. EXTREMITIES: Normal range of motion. No clubbing or cyanosis. Peripheral pulses intact. No lower extremity edema ASSESSMENT: 1. Fatigue and lack of energy probably secondary to end-stage renal disease 2. Mild troponin elevation, no evidence of acute coronary syndrome most likely secondary to renal status 3. History of CAD with prior stenting in January 4. End-stage renal disease on hemodialysis 5. Ischemic cardiac cardiomyopathy 6. History of hypertension PLAN: Continue hemodialysis per nephrology Continue current cardiac medications Increase hydralazine to 50mg twice a day for optimal blood pressure control 2-D echo has been ordered. Await results Further recommendations pending patient's course Nurse practitioner note has been reviewed by physician. Signing provider agrees with the documented findings, assessment, and plan of care. Objective - Vital Signs Vital signs: Vital Signs Temp 98.1 F 08/12/22 08:30 Pulse 96 08/12/22 08:30 Resp 19 08/12/22 08:30 BP 169/94 08/12/22 08:30 Pulse Ox 94 L 08/12/22 08:30 FiO2 Intake & Output 08/11/22 08/12/22 08/12/22 18:59 06:59 18:59 Intake Total 200 Balance 200 Weight 72.575 kg 72.575 kg Intake: Oral 200 Other: Voiding Method Urinal Urinal - Labs CBC & Chem 7: 08/12/22 07:40 08/12/22 07:40 Labs: Abnormal Lab Results - Last 24 Hours (Table) 08/11/22 08/11/22 08/11/22 Range/Units 13:22 13:22 13:22 WBC 2.8 L (3.8-10.6) k/uL RBC 3.15 L (4.30-5.90) m/uL Hgb 8.2 L (13.0-17.5) gm/dL Hct 26.4 L (39.0-53.0) % MCHC (31.0-37.0) g/dL RDW 17.3 H (11.5-15.5) % Plt Count 114 L (150-450) k/uL Lymphocytes # 0.3 L (1.0-4.8) k/uL PT 12.7 H (9.0-12.0) sec INR 1.2 H (<1.2) D-Dimer 3.29 H (<0.60) mg/L FEU BUN 49 H (9-20) mg/dL Creatinine 7.51 H* (0.66-1.25) mg/dL Calcium 11.0 H (8.4-10.2) mg/dL Phosphorus (2.5-4.5) mg/dL Magnesium 2.4 H (1.6-2.3) mg/dL Total Bilirubin (0.2-1.3) mg/dL AST 14 L (17-59) U/L Troponin I (0.000-0.034) ng/mL Albumin (3.5-5.0) g/dL HDL Cholesterol (40.00-60.00) mg/dL TSH (0.465-4.680) mIU/L 08/11/22 08/11/22 08/11/22 Range/Units 13:22 17:34 17:34 WBC (3.8-10.6) k/uL RBC (4.30-5.90) m/uL Hgb (13.0-17.5) gm/dL Hct (39.0-53.0) % MCHC (31.0-37.0) g/dL RDW (11.5-15.5) % Plt Count (150-450) k/uL Lymphocytes # (1.0-4.8) k/uL PT (9.0-12.0) sec INR (<1.2) D-Dimer (<0.60) mg/L FEU BUN (9-20) mg/dL Creatinine (0.66-1.25) mg/dL Calcium (8.4-10.2) mg/dL Phosphorus (2.5-4.5) mg/dL Magnesium (1.6-2.3) mg/dL Total Bilirubin (0.2-1.3) mg/dL AST (17-59) U/L Troponin I 0.090 H* 0.113 H* (0.000-0.034) ng/mL Albumin (3.5-5.0) g/dL HDL Cholesterol 26.60 L (40.00-60.00) mg/dL TSH (0.465-4.680) mIU/L 08/11/22 08/12/22 08/12/22 Range/Units 21:50 07:40 07:40 WBC (3.8-10.6) k/uL RBC 3.07 L (4.30-5.90) m/uL Hgb 8.1 L (13.0-17.5) gm/dL Hct 26.2 L (39.0-53.0) % MCHC 30.9 L (31.0-37.0) g/dL RDW 17.5 H (11.5-15.5) % Plt Count 128 L (150-450) k/uL Lymphocytes # 0.4 L (1.0-4.8) k/uL PT (9.0-12.0) sec INR (<1.2) D-Dimer (<0.60) mg/L FEU BUN 59 H (9-20) mg/dL Creatinine 8.80 H* (0.66-1.25) mg/dL Calcium 10.3 H (8.4-10.2) mg/dL Phosphorus 5.3 H (2.5-4.5) mg/dL Magnesium 2.4 H (1.6-2.3) mg/dL Total Bilirubin 1.6 H (0.2-1.3) mg/dL AST (17-59) U/L Troponin I 0.327 H* (0.000-0.034) ng/mL Albumin 3.3 L (3.5-5.0) g/dL HDL Cholesterol (40.00-60.00) mg/dL TSH (0.465-4.680) mIU/L 08/12/22 Range/Units 07:40 WBC (3.8-10.6) k/uL RBC (4.30-5.90) m/uL Hgb (13.0-17.5) gm/dL Hct (39.0-53.0) % MCHC (31.0-37.0) g/dL RDW (11.5-15.5) % Plt Count (150-450) k/uL Lymphocytes # (1.0-4.8) k/uL PT (9.0-12.0) sec INR (<1.2) D-Dimer (<0.60) mg/L FEU BUN (9-20) mg/dL Creatinine (0.66-1.25) mg/dL Calcium (8.4-10.2) mg/dL Phosphorus (2.5-4.5) mg/dL Magnesium (1.6-2.3) mg/dL Total Bilirubin (0.2-1.3) mg/dL AST (17-59) U/L Troponin I (0.000-0.034) ng/mL Albumin (3.5-5.0) g/dL HDL Cholesterol (40.00-60.00) mg/dL TSH 16.800 H (0.465-4.680) mIU/L
[2022-08-12 12:26] LABS: T4, Free (Free Thyroxine) 1.36 ng/dL (0.78-2.19)
--- NOTE | 2022-08-12 13:10 | P.CNNES ---
History of Present Illness Consult date: 08/12/22 Requesting physician: Wander Fernando Reason for Consult: confusion History of Present Illness: This is a 66-year-old gentleman with history of end-stage renal disease on dialysis, hypertension, myocardial infarction, thyroid cancer who presented emergency department because of confusion. History was obtained from patient the cro. It seems the patient has been noncompliant with dialysis and has been more confused and baseline. Usually he is alert oriented 4 according to his cro. Patient is unable to provide history for me and currently is getting dialysis. Some of the workup during this hospital visit consisted of: He is afebrile. Creatinine is trending up at 8.80. magnesium is 2.4, calcium iSodium is 141. And glucose is 86. Phosphorus is 5.3. TSH is 16.80. Free T4 is 1.360.s 11.0. AST of 14 ALT is 10. Review of Systems Review of system is limited but the prone positive and negative as per HPI. Past Medical History Past Medical History: Cancer, Dialysis, Hypertension, Myocardial Infarction ([place]), Renal Disease Additional Past Medical History / Comment(s): DIALYSIS M,W. F; pt. is a poor historian. pt states he sees Dr. Chavis, but unsure of location of cancer. Patients son states that he could have cancer of his stomach possible Last Myocardial Infarction Date:: 01/21/2022 History of Any Multi-Drug Resistant Organisms: None Reported Additional Past Surgical History / Comment(s): FISTULA, right side kidney removal. Past Anesthesia/Blood Transfusion Reactions: No Reported Reaction Past Psychological History: No Psychological Hx Reported Smoking Status: Former smoker Past Alcohol Use History: None Reported Past Drug Use History: None Reported - Past Family History Mother History Unknown: Yes Family Medical History: Dementia, Hypertension Medications and Allergies Home Medications Medication Instructions Recorded Confirmed Type No Known Home Medications 08/11/22 08/11/22 History Allergies Allergy/AdvReac Type Severity Reaction Status Date / Time Sulfa (Sulfonamide Allergy Rash/Hives Verified 08/11/22 16:42 Antibiotics) Physical Examination - Vital Signs Vital Signs: Vital Signs Temp Pulse Pulse Resp BP BP Pulse Ox 08/12/22 11:30 100 17 157/97 95 08/12/22 08:30 98.1 F 96 19 169/94 94 L 08/12/22 03:36 98.4 F 98 20 159/83 94 L 08/12/22 01:45 102 H 08/11/22 23:36 97.8 F 102 H 20 148/82 95 08/11/22 20:19 117 H 20 08/11/22 19:25 117 H 20 08/11/22 19:20 98.1 F 117 H 20 172/89 92 L 08/11/22 15:31 104 H 08/11/22 15:20 105 H 08/11/22 14:49 103 H 20 169/91 99 08/11/22 12:59 98.8 F 105 H 20 169/88 99 Intake and Output 08/11/22 08/12/22 08/12/22 22:59 06:59 14:59 Intake Total 200 Balance 200 Intake: Oral 200 Other: Voiding Method Urinal Urinal Urinal Weight 72.575 kg GENERAL: The patient is lying in bed and is not in acute distress. CHEST: NO edema in extremities LUNG: Not labored breathing. NEUROLOGICAL: Limited. Higher mental function: The patient is drowsy but is awakeable to voice. Is oriented to self and correctly stated year. He stated he was in dialysis unit. He is able to name pen. He is following few simple commands. Delay in following commands. No neglect. Cranial nerves: The pupils are round, equal and reactive to light. Visual hurtado are full to confrontation throughout. Extraocular movement is intact no nystagmus is noted. No facial weakness. No dysarthria. Motor: The strength is hard to assess individual muscles because of cooperation. But lifting bilateral uppers above gravity and wiggling toes. Normal tone and bulk. Cerebellum: Unable to assess. Sensation: Unable to assess. Reflexes (right/left): 1+ throughout. Plantars are mute bilaterally. Results - Laboratory Findings CBC and BMP: 08/12/22 07:40 08/12/22 07:40 Abnormal Lab Findings: Abnormal Labs 08/11/22 08/11/22 08/11/22 13:22 13:22 13:22 WBC 2.8 L RBC 3.15 L Hgb 8.2 L Hct 26.4 L MCHC RDW 17.3 H Plt Count 114 L Lymphocytes # 0.3 L PT 12.7 H INR 1.2 H D-Dimer 3.29 H BUN 49 H Creatinine 7.51 H* Calcium 11.0 H Phosphorus Magnesium 2.4 H Total Bilirubin AST 14 L Troponin I Albumin HDL Cholesterol TSH 08/11/22 08/11/22 08/11/22 13:22 17:34 17:34 WBC RBC Hgb Hct MCHC RDW Plt Count Lymphocytes # PT INR D-Dimer BUN Creatinine Calcium Phosphorus Magnesium Total Bilirubin AST Troponin I 0.090 H* 0.113 H* Albumin HDL Cholesterol 26.60 L TSH 08/11/22 08/12/22 08/12/22 21:50 07:40 07:40 WBC RBC 3.07 L Hgb 8.1 L Hct 26.2 L MCHC 30.9 L RDW 17.5 H Plt Count 128 L Lymphocytes # 0.4 L PT INR D-Dimer BUN 59 H Creatinine 8.80 H* Calcium 10.3 H Phosphorus 5.3 H Magnesium 2.4 H Total Bilirubin 1.6 H AST Troponin I 0.327 H* Albumin 3.3 L HDL Cholesterol TSH 08/12/22 07:40 WBC RBC Hgb Hct MCHC RDW Plt Count Lymphocytes # PT INR D-Dimer BUN Creatinine Calcium Phosphorus Magnesium Total Bilirubin AST Troponin I Albumin HDL Cholesterol TSH 16.800 H Assessment and Plan Assessment: Altered mental status and is seems that due to metabolic encephalopathy. Rule out brain mets especially with hx of cancer. Multiple electrolyte abnormality: Hyper Lisseth ischemia, hyperphosphatemia, hypercalcemia. End-stage renal disease on dialysis Hypertension History of myocardial infarction History of thyroid cancer Plan: I ordered CT with and without to rule out any brain mass and any stroke. A CT and is negative for any enhancement patient continues to be confused with and consider MRI of the brain without. Ordered routine EEG because of his confusion to rule out any underlying seizure or discharges, but seems unlikely. I ordered vitamin B12, folate, ammonia level. Nephrology is on board Cardiology is on board Oncology was consulted by the nephrology team because of history of malignancy We'll defer the rest of the medical measure the primary team The plan was discussed with the primary team as well as nephrology team. Thank you for the consultation. Dr. Campbell will start neurology service tomorrow A.M. Time with Patient: Greater than 30
[2022-08-12] MEDS: carvediloL 12.5 MG TAB PO SCH ×2 (13:37→17:05)
[2022-08-12] MEDS: hydrALAZINE HCL 50 MG TAB PO SCH ×2 (13:37→19:37)
[2022-08-12 13:53] LABS: Ionized Calcium 4.4 mg/dL (4.5-5.3)
--- NOTE | 2022-08-12 15:18 | P.HPIM ---
History of Present Illness H&P Date: 08/12/22 This is a 66 year old male who is admitted for altered mental status and has been confused with family reporting worsening confusion over the last weeks patient is currently alert x 2-3. Patient had missed his scheduled hemodialysis appointment and family had gone over to check on the patient and found him to be significantly altered and brought in for evaluation. Patient has medical history of renal disease, hypertension, myocardial infarction, thyroid cancer. Usually alert x 4. Patient is a former smoker. He was recently treated with levofloxacin outpatient 2 weeks ago. Apparently patient has not been taking his medications at home. He makes statements about his cat and being suspicious of his cat and his cats friend as the reason for his hospital stay. He had a parathyroid scan done recently as outpatient showing no evidence for mediastinal uptake to suggest mediastinal parathyroid adenoma. Initial lab work reveals a white count of 2.8, hemoglobin of 8.2, platelet count of 114, d-dimer 3.29, INR 1.2, BUN/creatinine of 49 and 7.51. Calcium is elevated at 11, magnesium 2.4, troponin elevation of 0.090, 0.13, 0.327. The lipid panel was essentially normal. Chest x-ray on admission shows cardiomegaly with pulmonary vascular congestion and bilateral pleural effusions. Patient is scheduled to undergo hemodialysis today, neurology, nephrology, and cardiology services have been co nsulted. At the time of examination patient states his breathing has significant improved, denying shortness of breath, no chest pain, no nausea vomiting or diarrhea. REVIEW OF SYSTEMS: CONSTITUTIONAL: No fever, no malaise, no fatigue. HEENT: No recent visual problems or hearing problems. Denied any sore throat. CARDIOVASCULAR: No chest pain, orthopnea, PND, no palpitations, no syncope. PULMONARY: No shortness of breath, no cough, no hemoptysis. GASTROINTESTINAL: No diarrhea, no nausea, no vomiting, no abdominal pain. NEUROLOGICAL: No headaches, no weakness, no numbness. HEMATOLOGICAL: Denies any bleeding or petechiae. GENITOURINARY: Denies any burning micturition, frequency, or urgency. MUSCULOSKELETAL/RHEUMATOLOGICAL: Denies any joint pain, swelling, or any muscle pain. ENDOCRINE: Denies any polyuria or polydipsia. The rest of the 14-point review of systems is negative. PHYSICAL EXAMINATION: GENERAL: The patient is alert and oriented x2-3, not in any acute distress. Well developed, well nourished. HEENT: Pupils are round and equally reacting to light. EOMI. No scleral icterus. No conjunctival pallor. Normocephalic, atraumatic. No pharyngeal erythema. No thyromegaly. CARDIOVASCULAR: S1 and S2 present. No murmurs, rubs, or gallops. PULMONARY: Chest is clear to auscultation, no wheezing or crackles. ABDOMEN: Soft, nontender, nondistended, normoactive bowel sounds. No palpable organomegaly. MUSCULOSKELETAL: No joint swelling or deformity. EXTREMITIES: No cyanosis, clubbing, or pedal edema. NEUROLOGICAL: Gross neurological examination did not reveal any focal deficits. SKIN: No rashes. Left AV fistula in place. Assessment and plan Acute CHF exacerbation Volume overload secondary to missed hemodialysis Altered mental status likely acute metabolic encephalopathy from renal failure rule out brain metastasis Elevated D-Dimer Electrolyte imbalance with elevated magnesium, phosphorous and calcium End stage renal disease maintained on hemodialysis Mild aortic stenosis Heart failure systolic dysfunction EF 35%. History of thyroid cancer Hypertension S/P right nephrectomy Hx myocardial infarction Former Smoker GI prophylaxis DVT prophylaxis Full Code Plan Check urinalysis Nephrology cardiology consultation in place Patient to undergo hemodialysis today Echocardiogram pending VQ scan ordered for the elevated D-Dimer rule out PE Resume levothyroxine and check TSH Neurology and oncology on consultation PT/OT have been consulted patient will likely need YANNICK on discharge unable to care for himself at home The impression and plan of care has been dictated by Estefanía Adames, Nurse Practitioner as directed. Dr. Celsa MD I have performed a history and physical examination and medical decision making of this patient, discussed the same with the dictator, and agree with the dictators assessment and plan as written, documented as a scribe. Based on total visit time, I have performed more than 50% of this visit. Past Medical History Past Medical History: Cancer, Dialysis, Hypertension, Myocardial Infarction ([place]), Renal Disease Additional Past Medical History / Comment(s): DIALYSIS M,W. F; pt. is a poor historian. pt states he sees Dr. Chavis, but unsure of location of cancer. Patients son states that he could have cancer of his stomach possible Last Myocardial Infarction Date:: 01/21/2022 History of Any Multi-Drug Resistant Organisms: None Reported Additional Past Surgical History / Comment(s): FISTULA, right side kidney removal. Past Anesthesia/Blood Transfusion Reactions: No Reported Reaction Past Psychological History: No Psychological Hx Reported Smoking Status: Former smoker Past Alcohol Use History: None Reported Past Drug Use History: None Reported - Past Family History Mother History Unknown: Yes Family Medical History: Dementia, Hypertension Medications and Allergies Home Medications Medication Instructions Recorded Confirmed Type No Known Home Medications 08/11/22 08/11/22 History Allergies Allergy/AdvReac Type Severity Reaction Status Date / Time Sulfa (Sulfonamide Allergy Rash/Hives Verified 08/11/22 16:42 Antibiotics) Physical Exam Vitals: Vital Signs Temp Pulse Pulse Resp BP BP Pulse Ox 08/12/22 03:36 98.4 F 98 20 159/83 94 L 08/12/22 01:45 102 H 08/11/22 23:36 97.8 F 102 H 20 148/82 95 08/11/22 20:19 117 H 20 08/11/22 19:25 117 H 20 08/11/22 19:20 98.1 F 117 H 20 172/89 92 L 08/11/22 15:31 104 H 08/11/22 15:20 105 H 08/11/22 14:49 103 H 20 169/91 99 08/11/22 12:59 98.8 F 105 H 20 169/88 99 Intake and Output 08/11/22 08/12/22 08/12/22 22:59 06:59 14:59 Intake Total 200 Balance 200 Intake: Oral 200 Other: Voiding Method Urinal Urinal Weight 72.575 kg Results CBC & Chem 7: 08/12/22 07:40 08/12/22 07:40 Labs: Abnormal Lab Results - Last 24 Hours (Table) 08/11/22 08/11/22 08/11/22 Range/Units 13:22 13:22 13:22 WBC 2.8 L (3.8-10.6) k/uL RBC 3.15 L (4.30-5.90) m/uL Hgb 8.2 L (13.0-17.5) gm/dL Hct 26.4 L (39.0-53.0) % MCHC (31.0-37.0) g/dL RDW 17.3 H (11.5-15.5) % Plt Count 114 L (150-450) k/uL Lymphocytes # 0.3 L (1.0-4.8) k/uL PT 12.7 H (9.0-12.0) sec INR 1.2 H (<1.2) D-Dimer 3.29 H (<0.60) mg/L FEU BUN 49 H (9-20) mg/dL Creatinine 7.51 H* (0.66-1.25) mg/dL Calcium 11.0 H (8.4-10.2) mg/dL Magnesium 2.4 H (1.6-2.3) mg/dL AST 14 L (17-59) U/L Troponin I (0.000-0.034) ng/mL HDL Cholesterol (40.00-60.00) mg/dL 08/11/22 08/11/22 08/11/22 Range/Units 13:22 17:34 17:34 WBC (3.8-10.6) k/uL RBC (4.30-5.90) m/uL Hgb (13.0-17.5) gm/dL Hct (39.0-53.0) % MCHC (31.0-37.0) g/dL RDW (11.5-15.5) % Plt Count (150-450) k/uL Lymphocytes # (1.0-4.8) k/uL PT (9.0-12.0) sec INR (<1.2) D-Dimer (<0.60) mg/L FEU BUN (9-20) mg/dL Creatinine (0.66-1.25) mg/dL Calcium (8.4-10.2) mg/dL Magnesium (1.6-2.3) mg/dL AST (17-59) U/L Troponin I 0.090 H* 0.113 H* (0.000-0.034) ng/mL HDL Cholesterol 26.60 L (40.00-60.00) mg/dL 08/11/22 08/12/22 Range/Units 21:50 07:40 WBC (3.8-10.6) k/uL RBC 3.07 L (4.30-5.90) m/uL Hgb 8.1 L (13.0-17.5) gm/dL Hct 26.2 L (39.0-53.0) % MCHC 30.9 L (31.0-37.0) g/dL RDW 17.5 H (11.5-15.5) % Plt Count 128 L (150-450) k/uL Lymphocytes # 0.4 L (1.0-4.8) k/uL PT (9.0-12.0) sec INR (<1.2) D-Dimer (<0.60) mg/L FEU BUN (9-20) mg/dL Creatinine (0.66-1.25) mg/dL Calcium (8.4-10.2) mg/dL Magnesium (1.6-2.3) mg/dL AST (17-59) U/L Troponin I 0.327 H* (0.000-0.034) ng/mL HDL Cholesterol (40.00-60.00) mg/dL Thrombosis Risk Factor Assmnt - Choose All That Apply Any of the Below Risk Factors Present?: No Other Risk Factors: Yes Each Risk Factor Represents 2 Points: Age 61-74 years Other congenital or acquired thrombophilia - If yes, enter type in comment: No Thrombosis Risk Factor Assessment Total Risk Factor Score: 2 Thrombosis Risk Factor Assessment Level: Low Risk Assessment and Plan Time with Patient: Less than 30
[2022-08-12] MEDS: SODIUM CHLORIDE 0.9% 1,000 ML IV SCH (16:28)
--- NOTE | 2022-08-12 16:51 | P.CONS ---
History of Present Illness - Reason for Consult Consult date: 08/12/22 h/o MDS, AMS - History of Present Illness This is a 66-year-old white male, well known to our service. The patient was seen with cytopenias, with bone marrow aspiration and biopsy revealing myelodysplastic syndrome, RAEB 1. The patient was treated with Dacogen for several cycles, which he tolerated well, had an excellent response. His treatment was held, as he was started with cytopenias from the treatment itself. The patient was referred to bone marrow transplant, but did not make those appointments despite being encouraged to do so multiple times. He did not follow-up in the office after 09/01, canceling his subsequent appointments and not rescheduling. The patient is currently on hemodialysis for ESRD. He was brought in because of altered mental status, and increased weakness. Apparently this has been progressive over the past few weeks. The patient has missed dialysis appointments, and was found to be in his current state when checked on by family. He has had treatment for UTI about 2 weeks ago. Labs show hemoglobin of 8.1, WBC 3.9, ANC greater than 2000, and platelets of 128. Review of Systems Unobtainable from the patient, due to his current mental status, and diminished responsiveness. Obtained from chart including other physician notes, and nursing. Constitutional: Reports fatigue, Reports weakness, Reports weight loss Eyes: denies blurred vision, denies pain Ears: deny: decreased hearing, ear discharge, earache, tinnitus Ears, nose, mouth and throat: Denies headache, Denies sore throat Cardiovascular: Reports decreased exercise tolerance Respiratory: Denies cough Gastrointestinal: Denies abdominal pain, Denies diarrhea, Denies nausea, Denies vomiting Genitourinary: Reports as per HPI Musculoskeletal: Reports muscle weakness Integumentary: Denies pruritus, Denies rash Neurological: Reports as per HPI, Reports change in mentation, Reports confusion Psychiatric: Reports confusion Hematologic/Lymphatic: Reports as per HPI Past Medical History Past Medical History: Cancer, Dialysis, Hypertension, Myocardial Infarction ([place]), Renal Disease Additional Past Medical History / Comment(s): DIALYSIS MArnaldo; pt. is a poor historian. pt states he sees Dr. Chavis, but unsure of location of cancer. Patients son states that he could have cancer of his stomach possible Last Myocardial Infarction Date:: 01/21/2022 History of Any Multi-Drug Resistant Organisms: None Reported Additional Past Surgical History / Comment(s): FISTULA, right side kidney removal. Past Anesthesia/Blood Transfusion Reactions: No Reported Reaction Past Psychological History: No Psychological Hx Reported Smoking Status: Former smoker Past Alcohol Use History: None Reported Past Drug Use History: None Reported - Past Family History Mother History Unknown: Yes Family Medical History: Dementia, Hypertension Medications and Allergies Home Medications Medication Instructions Recorded Confirmed Type No Known Home Medications 08/11/22 08/11/22 History Allergies Allergy/AdvReac Type Severity Reaction Status Date / Time Sulfa (Sulfonamide Allergy Rash/Hives Verified 08/11/22 16:42 Antibiotics) Physical Exam Vitals: Vital Signs Temp Pulse Resp BP Pulse Ox 08/12/22 13:38 100/68 08/12/22 13:37 98.0 F 94 18 154/96 08/12/22 11:30 100 17 157/97 95 08/12/22 08:30 98.1 F 96 19 169/94 94 L 08/12/22 03:36 98.4 F 98 20 159/83 94 L 08/12/22 01:45 102 H 08/11/22 23:36 97.8 F 102 H 20 148/82 95 08/11/22 20:19 117 H 20 08/11/22 19:25 117 H 20 08/11/22 19:20 98.1 F 117 H 20 172/89 92 L Intake and Output 08/12/22 08/12/22 08/12/22 06:59 14:59 22:59 Intake Total 200 860 Output Total 3000 Balance 200 -2140 Intake: Oral 200 360 Hemodialysis 500 Output: Hemodialysis 3000 Other: Voiding Method Urinal Urinal - Constitutional General appearance: no acute distress - EENT Eyes: EOMI ENT: hearing grossly normal, normal oropharynx - Neck Neck: no lymphadenopathy - Respiratory Respiratory: bilateral: CTA - Cardiovascular Rhythm: regular Heart sounds: normal: S1, S2 - Gastrointestinal General gastrointestinal: normal bowel sounds, soft - Integumentary Integumentary: normal - Neurologic Marked generalized weakness, lethargy, decreasing responsiveness Neurologic: CNII-XII intact - Musculoskeletal Musculoskeletal: generalized weakness, strength equal bilaterally - Psychiatric Patient is lethargic, and somnolent. Responsiveness is decreased. He responds yes or no to some questions, a head movements, but doesn't respond to others. Verbalization is minimal currently Results CBC & Chem 7: 08/12/22 07:40 08/12/22 07:40 Labs: Abnormal Lab Results - Last 24 Hours (Table) 08/11/22 08/11/22 08/11/22 Range/Units 17:34 17:34 21:50 RBC (4.30-5.90) m/uL Hgb (13.0-17.5) gm/dL Hct (39.0-53.0) % MCHC (31.0-37.0) g/dL RDW (11.5-15.5) % Plt Count (150-450) k/uL Lymphocytes # (1.0-4.8) k/uL BUN (9-20) mg/dL Creatinine (0.66-1.25) mg/dL Calcium (8.4-10.2) mg/dL Ionized Calcium Kim (4.5-5.3) mg/dL Phosphorus (2.5-4.5) mg/dL Magnesium (1.6-2.3) mg/dL Total Bilirubin (0.2-1.3) mg/dL Troponin I 0.113 H* 0.327 H* (0.000-0.034) ng/mL Albumin (3.5-5.0) g/dL HDL Cholesterol 26.60 L (40.00-60.00) mg/dL TSH (0.465-4.680) mIU/L 08/12/22 08/12/22 08/12/22 Range/Units 07:40 07:40 07:40 RBC 3.07 L (4.30-5.90) m/uL Hgb 8.1 L (13.0-17.5) gm/dL Hct 26.2 L (39.0-53.0) % MCHC 30.9 L (31.0-37.0) g/dL RDW 17.5 H (11.5-15.5) % Plt Count 128 L (150-450) k/uL Lymphocytes # 0.4 L (1.0-4.8) k/uL BUN 59 H (9-20) mg/dL Creatinine 8.80 H* (0.66-1.25) mg/dL Calcium 10.3 H (8.4-10.2) mg/dL Ionized Calcium Kim (4.5-5.3) mg/dL Phosphorus 5.3 H (2.5-4.5) mg/dL Magnesium 2.4 H (1.6-2.3) mg/dL Total Bilirubin 1.6 H (0.2-1.3) mg/dL Troponin I (0.000-0.034) ng/mL Albumin 3.3 L (3.5-5.0) g/dL HDL Cholesterol (40.00-60.00) mg/dL TSH 16.800 H (0.465-4.680) mIU/L 08/12/22 Range/Units 13:16 RBC (4.30-5.90) m/uL Hgb (13.0-17.5) gm/dL Hct (39.0-53.0) % MCHC (31.0-37.0) g/dL RDW (11.5-15.5) % Plt Count (150-450) k/uL Lymphocytes # (1.0-4.8) k/uL BUN (9-20) mg/dL Creatinine (0.66-1.25) mg/dL Calcium (8.4-10.2) mg/dL Ionized Calcium Kim 4.4 L (4.5-5.3) mg/dL Phosphorus (2.5-4.5) mg/dL Magnesium (1.6-2.3) mg/dL Total Bilirubin (0.2-1.3) mg/dL Troponin I (0.000-0.034) ng/mL Albumin (3.5-5.0) g/dL HDL Cholesterol (40.00-60.00) mg/dL TSH (0.465-4.680) mIU/L Comments: EKG images reviewed Chest x-ray: report reviewed Assessment and Plan (1) MDS (myelodysplastic syndrome) Narrative/Plan: History as described in the HPI. The patient has not been on any treatment for more than a year. Considering his initial diagnosis, he actually appears to have done quite well. He does have pancytopenia this admission, but white blood cells and platelets are well within a safe range, near normal. Hemoglobin is diminished, but above the threshold for transfusion. In fact, in his case it is very likely that his ESRD is contra putting significantly to the anemia component. - The patient had been referred for bone marrow transplant previously, but did not make that appointment. Given his current medical issues, he does not appear to be a candidate any longer. - Given the above, from the hematology standpoint we will check labs to rule out other causes of cytopenias, especially anemia, with emphasis on deficiency states. Appropriate recommendations for supplementation will remain, if indicated, based on results -Continue to monitor counts, with supportive transfusions if needed. Transfuse to keep hemoglobin greater than 7 Current Visit: Yes Status: Acute Code(s): D46.9 - MYELODYSPLASTIC SYNDROME, UNSPECIFIED SNOMED Code(s): 460623687 (2) Pancytopenia, acquired Narrative/Plan: Due to myelodysplasia. As noted, WBC and platelets are near normal. The anemia may actually be only partially due to MDS with a significant component from his ESRD. - Plan as above Current Visit: Yes Status: Acute Code(s): D61.818 - OTHER PANCYTOPENIA SNOMED Code(s): 4533850 (3) Altered mental state Narrative/Plan: Clinically metabolic encephalopathy due to his missing dialysis is probably most likely. Patient will be receiving dialysis treatments inpatient. He has also been seen by neurology. Brain imaging with computed tomography scan without contrast has been ordered. Current Visit: No Status: Acute Code(s): R41.82 - ALTERED MENTAL STATUS, UNSPECIFIED SNOMED Code(s): 373215507
[2022-08-12 16:52] LABS: Hepatitis B Surface AB- Quant 3.5 mIU/mL; Hepatitis B Surface Antibody Nonreactive (Nonreactive)
[2022-08-12 17:02] LABS: Hepatitis B Surface Antigen Nonreactive (Nonreactive)
[2022-08-12 17:04] LABS: % Iron Saturation 15.61 (15.00-50.00)
[2022-08-12 17:15] LABS: Anisocytosis Slight; HCT 24.9 % (39.0-53.0); HGB 7.6 gm/dL (13.0-17.5); Hypochromasia Marked; MCH 25.8 pg (25.0-35.0); MCHC 30.6 g/dL (31.0-37.0); MCV 84.3 fL (80.0-100.0); Mean Platelet Volume 8.9; Platelet Count 110 k/uL (150-450); RBC 2.95 m/uL (4.30-5.90); RDW 17.4 % (11.5-15.5); WBC 3.8 k/uL (3.8-10.6)
--- NOTE | 2022-08-12 17:45 | CA ---
Transthoracic Echo Report Name: Harinder Gerard Age: 66 Gender: M : 1955 Exam Date: 08/12/2022 09:37 Exam Location: [facility] Ht (in): 67 Wt (lb): 160 Ordering Physician: Jimena Fenton MD ([id number]) Attending/Referring Phys: Drop Clipper Madai Pérez RDCS Procedure CPT: Indications: CAD Cardiac Hx: Technical Quality: Fair Contrast 1: Total Dose (mL): Contrast 2: Total Dose (mL): MEASUREMENTS (Male / Female) Normal Values 2D ECHO LV Diastolic Diameter PLAX 5.9 cm 4.2 - 5.9 / 3.9 - 5.3 cm LV Systolic Diameter PLAX 4.4 cm IVS Diastolic Thickness 1.4 cm 0.6 - 1.0 / 0.6 - 0.9 cm LVPW Diastolic Thickness 1.7 cm 0.6 - 1.0 / 0.6 - 0.9 cm LV Relative Wall Thickness 0.5 RV Internal Dim ED PLAX 2.6 cm LVOT Diameter 2.1 cm LA Systolic Diameter LX 6.4 cm 3.0 - 4.0 / 2.7 - 3.8 cm DOPPLER AV Peak Velocity 456.4 cm/s AV Peak Gradient 83.3 mmHg AV Mean Velocity 271.3 cm/s AV Mean Gradient 36.5 mmHg AV Velocity Time Integral 75.4 cm TR Peak Velocity 398.4 cm/s TR Peak Gradient 63.5 mmHg Right Ventricular Systolic Press 72.3 mmHg FINDINGS Left Ventricle Moderate to severe left ventricle hypertrophy. Reduced global left ventricular systolic function. Left ventricular ejection fraction is estimated at 35-40 %. Right Ventricle Normal right ventricular size and function. Severe pulmonary hypertension. Right ventricular systolic pressure estimated at 72 mm hg. Right Atrium Normal right atrial size. Left Atrium Severe left atrial dilatation. Mitral Valve Mitral valve thickened. Mild mitral annular calcification. Egeqsnph-bf-htbjgz mitral regurgitation. Aortic Valve Ebzgvqlx-gb-mesdbv aortic stenosis with a peak gradient of 83 mmHg and a mean gradient of 37 mmHg. Tricuspid Valve Structurally normal tricuspid valve. Severe tricuspid regurgitation. Pulmonic Valve Structurally normal pulmonic valve. Pericardium Small pericardial effusion. Pleural effusion. Aorta Normal size aortic root and proximal ascending aorta. CONCLUSIONS Severe left ventricular hypertrophy with bright and echo dense myocardium with diffuse global hypokinesis with moderate to severe LV dysfunction with an ejection fraction of 35-40% Consider infiltrative cardiomyopathy Severe pulmonary hypertension with an RVSP of 72 mm Left atrium is enlarged Moderate to severe mitral Severe tricuspid regurgitation Severe aortic stenosis with a peak gradient of 83 mm and mean gradient 7 mm Small pericardial effusion Previewed by: Dr. Elias Mcdaniel MD (Electronically Signed) Final Date: 12 August 2022 17:45
[2022-08-12] MEDS: HEPARIN SODIUM,PORCINE/PF 5,000 UNIT/0.5 ML SYRINGE SQ SCH (19:35)
[2022-08-13 06:07] LABS: Free Kappa Lt Chain Qnt, Serum 26.63 mg/dL (0.33-1.94); Free Lambda Lt Chain Qnt, Seru 25.21 mg/dL (0.57-2.63)
[2022-08-13] MEDS: LEVOTHYROXINE 50 MCG TAB PO SCH (06:17)
[2022-08-13] MEDS: carvediloL 12.5 MG TAB PO SCH ×2 (06:17→16:16)
[2022-08-13 08:13] LABS: Phosphorus 5.6 mg/dL (2.5-4.5); Potassium 3.6 mmol/L (3.5-5.1)
[2022-08-13] MEDS: hydrALAZINE HCL 50 MG TAB PO SCH ×2 (08:42→21:55)
[2022-08-13] MEDS: FAMOTIDINE 20 MG TAB PO SCH (08:54)
[2022-08-13] MEDS: ASPIRIN 81 MG PO SCH (08:54)
[2022-08-13] MEDS: QUEtiapine 25 MG TAB PO SCH (08:54)
[2022-08-13] MEDS: CLOPIDOGREL 75 MG TAB PO SCH (08:54)
[2022-08-13] MEDS: ATORVASTATIN 40 MG TAB PO SCH (08:54)
[2022-08-13] MEDS: HEPARIN SODIUM,PORCINE/PF 5,000 UNIT/0.5 ML SYRINGE SQ SCH ×2 (08:54→21:55)
--- NOTE | 2022-08-13 10:16 | CT ---
EXAMINATION TYPE: CT brain wo/w con DATE OF EXAM: 08/13/2022 COMPARISON: 10/16/2020 HISTORY: altered mental status. r/o brain mets. hx cancer CT DLP: 2594.4mGycm CONTRAST: CT scan of the head is performed without and with IV Contrast, patient injected with 80 mL of Isovue 300. Unenhanced followed by contrast enhanced CT of the brain is submitted for evaluation. Age-related atr ophic and chronic small vessel ischemic change stable from prior study. There is no evidence for intr acranial hemorrhage or extra-axial collection. No mass effects are identified. Visualized bony calv arium is intact. Contrast is administered and no enhancing lesions are detected. No pathologic enha ncement is identified. If symptoms persist consider MRI. IMPRESSION: No evidence for enhancing lesion or acute intracranial process.
[2022-08-13] MEDS: SODIUM CHLORIDE 0.9% 1,000 ML IV SCH (11:33)
[2022-08-13] MEDS: ISOSORBIDE MONONITRATE ER 30 MG TAB.ER.24H PO SCH (11:33)
--- NOTE | 2022-08-13 11:52 | P.PN ---
Subjective Progress Note Date: 08/13/22 The patient is a 66-year-old male who is seen in neurologic follow-up on August 13, 2022, via teleneurology. The chart has been reviewed. Objective - Vital Signs Vital signs: Vital Signs Temp 98.0 F 08/13/22 08:00 Pulse 73 08/13/22 08:00 Resp 16 08/13/22 08:00 BP 97/64 08/13/22 08:00 Pulse Ox 98 08/13/22 08:00 FiO2 Intake & Output 08/12/22 08/13/22 08/13/22 18:59 06:59 18:59 Intake Total 1400 70 260 Output Total 3000 0 Balance -1600 70 260 Intake: IV 20 10 Invasive Line 3 20 10 Oral 900 50 250 Hemodialysis 500 Output: Urine 0 Hemodialysis 3000 Other: Voiding Method Urinal Urinal Urinal - Exam Gen.: The patient is seated in the bedside chair. He is eating breakfast without difficulty. He is in no acute distress. HEENT: Head is atraumatic, normocephalic. Fundus not visualized. There is no scleral icterus. Mucous membranes are moist. Neurological examination Mental status: The patient is awake, he is able to state his name, date of , age, location, current year and current month. His speech is clear. There is no dysarthria or aphasia. Cranial nerves: 2-12 grossly intact Motor: Patient is able to move all 4 extremities without difficulty. - Labs CBC & Chem 7: 08/12/22 16:49 08/13/22 07:13 Labs: Abnormal Lab Results - Last 24 Hours (Table) 08/12/22 08/12/22 08/12/22 Range/Units 10:49 10:49 10:49 RBC (4.30-5.90) m/uL Hgb (13.0-17.5) gm/dL Hct (39.0-53.0) % MCHC (31.0-37.0) g/dL RDW (11.5-15.5) % Plt Count (150-450) k/uL Sodium (137-145) mmol/L Chloride (98-107) mmol/L Carbon Dioxide (22-30) mmol/L BUN (9-20) mg/dL Creatinine (0.66-1.25) mg/dL Ionized Calcium Kim (4.5-5.3) mg/dL Phosphorus (2.5-4.5) mg/dL Iron 25 L (65-175) ug/dL TIBC 158 L (228-460) ug/dL Transferrin 113.0 L (204.0-354.0) mg/dL Ferritin 3974.0 H (22.0-322.0) ng/mL Vitamin B12 (200.0-944.0) pg/mL PTH Intact 155.0 H (14.0-72.0) pg/mL Free [place] LC, Quant 26.63 H (0.33-1.94) mg/dL Free Lambda LC, Quant 25.21 H (0.57-2.63) mg/dL 08/12/22 08/12/22 08/13/22 Range/Units 13:16 16:49 07:13 RBC 2.95 L (4.30-5.90) m/uL Hgb 7.6 L (13.0-17.5) gm/dL Hct 24.9 L (39.0-53.0) % MCHC 30.6 L (31.0-37.0) g/dL RDW 17.4 H (11.5-15.5) % Plt Count 110 L (150-450) k/uL Sodium 136 L (137-145) mmol/L Chloride 95 L (98-107) mmol/L Carbon Dioxide 32 H (22-30) mmol/L BUN 35 H (9-20) mg/dL Creatinine 5.11 H (0.66-1.25) mg/dL Ionized Calcium Kim 4.4 L (4.5-5.3) mg/dL Phosphorus 5.6 H (2.5-4.5) mg/dL Iron (65-175) ug/dL TIBC (228-460) ug/dL Transferrin (204.0-354.0) mg/dL Ferritin (22.0-322.0) ng/mL Vitamin B12 960.0 H (200.0-944.0) pg/mL PTH Intact (14.0-72.0) pg/mL Free [place] LC, Quant (0.33-1.94) mg/dL Free Lambda LC, Quant (0.57-2.63) mg/dL Assessment and Plan Assessment: Altered mental status and is seems that due to metabolic encephalopathy. Mental status has improved since dialysis. CT scan of the brain is negative for masses. Multiple electrolyte abnormality: Hypermagnesinia, hyperphosphatemia, hypercalcemia. Acute on chronic end-stage renal disease, on dialysis Hypertension History of myocardial infarction History of thyroid cancer Plan: 1. CT scan of the brain is negative for enhancing masses and there is improvement in patient's mental status, therefore MRI of the brain is not needed at this time 2. Continue dialysis 3. No further neurologic intervention is needed at this time. Please call with questions or concerns. Time with Patient: Less than 30 (Spent 20 minutes caring for this patient today including, obtaining a history, examining the patient, reviewing chart documentation, labs, imaging and creating this note)
--- NOTE | 2022-08-13 14:21 | P.PN ---
Subjective Progress Note Date: 08/13/22 Follow-up for ESRD. Family at bedside. Had dialysis yesterday, tolerated well. Objective - Vital Signs Vital signs: Vital Signs Temp 98.0 F 08/13/22 08:00 Pulse 60 08/13/22 13:22 Resp 16 08/13/22 13:22 BP 95/54 08/13/22 11:51 Pulse Ox 98 08/13/22 08:00 FiO2 Intake & Output 08/12/22 08/13/22 08/13/22 18:59 06:59 18:59 Intake Total 1400 70 270 Output Total 3000 0 Balance -1600 70 270 Intake: IV 20 20 Invasive Line 3 20 20 Oral 900 50 250 Hemodialysis 500 Output: Urine 0 Hemodialysis 3000 Other: Voiding Method Urinal Urinal Urinal - Exam No acute distress S1-S2 heard Decreased breath sounds Right jugular permacath Edema - Labs CBC & Chem 7: 08/12/22 16:49 08/13/22 07:13 Labs: Abnormal Lab Results - Last 24 Hours (Table) 08/12/22 08/12/22 08/12/22 Range/Units 10:49 10:49 10:49 RBC (4.30-5.90) m/uL Hgb (13.0-17.5) gm/dL Hct (39.0-53.0) % MCHC (31.0-37.0) g/dL RDW (11.5-15.5) % Plt Count (150-450) k/uL Sodium (137-145) mmol/L Chloride (98-107) mmol/L Carbon Dioxide (22-30) mmol/L BUN (9-20) mg/dL Creatinine (0.66-1.25) mg/dL Phosphorus (2.5-4.5) mg/dL Iron 25 L (65-175) ug/dL TIBC 158 L (228-460) ug/dL Transferrin 113.0 L (204.0-354.0) mg/dL Ferritin 3974.0 H (22.0-322.0) ng/mL Vitamin B12 (200.0-944.0) pg/mL PTH Intact 155.0 H (14.0-72.0) pg/mL Free [place] LC, Quant 26.63 H (0.33-1.94) mg/dL Free Lambda LC, Quant 25.21 H (0.57-2.63) mg/dL 08/12/22 08/12/22 08/13/22 Range/Units 13:16 16:49 07:13 RBC 2.95 L (4.30-5.90) m/uL Hgb 7.6 L (13.0-17.5) gm/dL Hct 24.9 L (39.0-53.0) % MCHC 30.6 L (31.0-37.0) g/dL RDW 17.4 H (11.5-15.5) % Plt Count 110 L (150-450) k/uL Sodium 136 L (137-145) mmol/L Chloride 95 L (98-107) mmol/L Carbon Dioxide 32 H (22-30) mmol/L BUN 35 H (9-20) mg/dL Creatinine 5.11 H (0.66-1.25) mg/dL Phosphorus 5.6 H (2.5-4.5) mg/dL Iron (65-175) ug/dL TIBC (228-460) ug/dL Transferrin (204.0-354.0) mg/dL Ferritin (22.0-322.0) ng/mL Vitamin B12 960.0 H (200.0-944.0) pg/mL PTH Intact (14.0-72.0) pg/mL Free [place] LC, Quant (0.33-1.94) mg/dL Free Lambda LC, Quant (0.57-2.63) mg/dL Assessment and Plan Assessment: #1 ESRD on hemodialysis, TTS schedule. #2 medical status changes #3 tertiary hyperparathyroidism with underlying ESRD #4 anemia with ESRD #5 hypertension with ESRD #6 metabolic bone disease Plan: #1 hemodialysis yesterday. Next treatment on Monday. #2 ESRD medications
[2022-08-13 14:45] LABS: Albumin 3.45 g/dL (3.80-4.90); Gamma Globulin 1.56 g/dL (0.70-1.50)
--- NOTE | 2022-08-13 17:54 | P.PN ---
Subjective Progress Note Date: 08/13/22 PROGRESS NOTE The patient is a 66-year-old male with known history of hypertension, CAD, end- stage renal disease who presented with symptoms of progressive fatigue, change in mental status and minimal troponin elevation. He feels and looks better today. He denies any chest discomfort. He denies any dizziness or palpitations. He underwent dialysis yesterday. Medications: Aspirin, Lipitor 40 mg daily, Coreg 12.5 mg twice a day, hydralazine 50 mg twice a day, Imdur 30 mg daily, PHYSICAL EXAMINATION: Blood pressure 119/60 heart rate 60 LUNGS: Clear to auscultation HEART: Regular rate and rhythm, S1, S2. No S3. systolic ejection murmur ABDOMEN: Soft, nontender, no organomegaly EXTREMETIES: No edema LAB: Potassium 3.6, BUN 35, creatinine 5.1 IMPRESSION: 1. CAD, stable 2. End-stage renal disease on dialysis 3. Ischemic cardiomyopathy 4. History of hypertension 5. Hyperlipidemia PLAN: 1. Continue present therapy 2. Follow blood pressure and if needed decrease hydralazine 3. Increase physical activity 4. Depending on his progress further recommendations will be made Objective - Vital Signs Vital signs: Vital Signs Temp 98.1 F 08/13/22 15:18 Pulse 66 08/13/22 15:18 Resp 18 08/13/22 15:18 BP 89/49 08/13/22 15:18 Pulse Ox 97 08/13/22 16:20 FiO2 Intake & Output 08/12/22 08/13/22 08/13/22 18:59 06:59 18:59 Intake Total 1400 70 1370 Output Total 3000 3000 Balance -1600 70 -1630 Intake: IV 20 20 Invasive Line 3 20 20 Oral 900 50 250 Hemodialysis 500 1100 Output: Urine 0 Hemodialysis 3000 3000 Other: Voiding Method Urinal Urinal Urinal # Voids 0 - Labs CBC & Chem 7: 08/12/22 16:49 08/13/22 07:13 Labs: Abnormal Lab Results - Last 24 Hours (Table) 08/12/22 08/12/22 08/12/22 Range/Units 10:49 10:49 13:16 Sodium (137-145) mmol/L Chloride (98-107) mmol/L Carbon Dioxide (22-30) mmol/L BUN (9-20) mg/dL Creatinine (0.66-1.25) mg/dL Phosphorus (2.5-4.5) mg/dL Albumin (PEP) 3.45 L (3.80-4.90) g/dL Lptkd-[id number]-Mygrawluy 0.50 H (0.10-0.40) g/dL Gamma Globulins 1.56 H (0.70-1.50) g/dL Vitamin B12 960.0 H (200.0-944.0) pg/mL Free [place] LC, Quant 26.63 H (0.33-1.94) mg/dL Free Lambda LC, Quant 25.21 H (0.57-2.63) mg/dL 08/13/22 Range/Units 07:13 Sodium 136 L (137-145) mmol/L Chloride 95 L (98-107) mmol/L Carbon Dioxide 32 H (22-30) mmol/L BUN 35 H (9-20) mg/dL Creatinine 5.11 H (0.66-1.25) mg/dL Phosphorus 5.6 H (2.5-4.5) mg/dL Albumin (PEP) (3.80-4.90) g/dL Kxkve-0-Rtnzgtoti (0.10-0.40) g/dL Gamma Globulins (0.70-1.50) g/dL Vitamin B12 (200.0-944.0) pg/mL Free [place] LC, Quant (0.33-1.94) mg/dL Free Lambda LC, Quant (0.57-2.63) mg/dL
--- NOTE | 2022-08-13 23:41 | P.PN ---
Subjective Progress Note Date: 08/13/22 This is a 66 year old male who is admitted for altered mental status and has been confused with family reporting worsening confusion over the last weeks patient is currently alert x 2-3. Patient had missed his scheduled hemodialysis appointment and family had gone over to check on the patient and found him to be significantly altered and brought in for evaluation. Patient has medical history of renal disease, hypertension, myocardial infarction, thyroid cancer. Usually alert x 4. Patient is a former smoker. He was recently treated with levofloxacin outpatient 2 weeks ago. Apparently patient has not been taking his medications at home. He makes statements about his cat and being suspicious of his cat and his cats friend as the reason for his hospital stay. He had a parathyroid scan done recently as outpatient showing no evidence for mediastinal uptake to suggest mediastinal parathyroid adenoma. Initial lab work reveals a white count of 2.8, hemoglobin of 8.2, platelet count of 114, d-dimer 3.29, INR 1.2, BUN/creatinine of 49 and 7.51. Calcium is elevated at 11, magnesium 2.4, troponin elevation of 0.090, 0.13, 0.327. The lipid panel was essentially normal. Chest x-ray on admission shows cardiomegaly with pulmonary vascular congestion and bilateral pleural effusions. Patient is scheduled to undergo hemodialysis today, neurology, nephrology, and cardiology services have been consulted. At the time of examination patient states his breathing has significant improved, denying shortness of breath, no chest pain, no nausea vomiting or diarrhea. 08/13/2022 Patient evaluated today during hemodialysis. Mentation has improved, patient does continue with significant weakness. Iron studies have been completed revealing Ferritin of 3974, iron 25 and TIBC 158. ProBNP on admission was found to be 324,000. Patient does have history of myelodysplastic disorder and hematology is following patient is undergoing work up due to hypercalcemia. Patient had brain CT done which is negative for enhancing lesion or acute intracranial process. Neurology is recommending EEG. TSH of 16.800, Free T4 of 1.36. PTH intact elevated at 155. Phosphorous remains elevated at 5.6. REVIEW OF SYSTEMS: CONSTITUTIONAL: No fever, no malaise, no fatigue. HEENT: No recent visual problems or hearing problems. Denied any sore throat. CARDIOVASCULAR: No chest pain, orthopnea, PND, no palpitations, no syncope. PULMONARY: No shortness of breath, no cough, no hemoptysis. GASTROINTESTINAL: No diarrhea, no nausea, no vomiting, no abdominal pain. NEUROLOGICAL: No headaches, no weakness, no numbness. The rest of the 14-point review of systems is negative. PHYSICAL EXAMINATION: GENERAL: The patient is alert and oriented x2-3, not in any acute distress. Well developed, well nourished. HEENT: Pupils are round and equally reacting to light. EOMI. No scleral icterus. No conjunctival pallor. Normocephalic, atraumatic. No pharyngeal erythema. No thyromegaly. CARDIOVASCULAR: S1 and S2 present. No murmurs, rubs, or gallops. PULMONARY: Chest is clear to auscultation, no wheezing or crackles. ABDOMEN: Soft, nontender, nondistended, normoactive bowel sounds. No palpable organomegaly. MUSCULOSKELETAL: No joint swelling or deformity. EXTREMITIES: No cyanosis, clubbing, or pedal edema. NEUROLOGICAL: Gross neurological examination did not reveal any focal deficits. SKIN: No rashes. Left AV fistula in place. Assessment and plan Acute CHF exacerbation Volume overload secondary to missed hemodialysis Acute hypoxic respiratory failure secondary to volume overload weaned down to 2L nasal cannula. Altered mental status likely acute metabolic encephalopathy from renal failure rule out brain metastasis Elevated D-Dimer Electrolyte imbalance with elevated magnesium, phosphorous and calcium End stage renal disease maintained on hemodialysis Anemia of chronic disease Hx of myelodysplastic disorder Mild aortic stenosis Heart failure systolic dysfunction EF 35%. History of thyroid cancer Hypertension S/P right nephrectomy Hx myocardial infarction Former Smoker GI prophylaxis DVT prophylaxis Full Code Plan Patient to undergo hemodialysis today VQ scan ordered for the elevated D-Dimer rule out PE Patient is being followed by multiple consultations including neurology, cardiology, nephrology Patients mentation has improved not back at baseline. EEG is recommending by neurology and pending at this time Creatinine has improved after patient resumed on scheduled dialysis infusions. Recommend to continue weaning oxygen as tolerated. PT/OT have been consulted patient will likely need YANNICK on discharge unable to care for himself at home The impression and plan of care has been dictated by Estefanía Adames, Nurse Practitioner as directed. Dr. Celsa MD I have performed a history and physical examination and medical decision making of this patient, discussed the same with the dictator, and agree with the dictators assessment and plan as written, documented as a scribe. Based on total visit time, I have performed more than 50% of this visit. Objective - Vital Signs Vital signs: Vital Signs Temp 97.7 F 08/13/22 21:45 Pulse 67 08/13/22 21:45 Resp 16 08/13/22 21:45 BP 125/64 08/13/22 21:45 Pulse Ox 100 08/13/22 21:45 FiO2 Intake & Output 08/13/22 08/13/22 08/14/22 06:59 18:59 06:59 Intake Total 70 1790 Output Total 3000 Balance 70 -1210 Intake: IV 20 20 Invasive Line 3 20 20 Oral 50 670 Hemodialysis 1100 Output: Urine 0 Hemodialysis 3000 Other: Voiding Method Urinal Urinal # Voids 0 # Bowel Movements 1 - Labs CBC & Chem 7: 08/12/22 16:49 08/13/22 07:13 Labs: Abnormal Lab Results - Last 24 Hours (Table) 08/12/22 08/12/22 08/13/22 Range/Units 10:49 10:49 07:13 Sodium 136 L (137-145) mmol/L Chloride 95 L (98-107) mmol/L Carbon Dioxide 32 H (22-30) mmol/L BUN 35 H (9-20) mg/dL Creatinine 5.11 H (0.66-1.25) mg/dL Phosphorus 5.6 H (2.5-4.5) mg/dL Albumin (PEP) 3.45 L (3.80-4.90) g/dL Nvjzk-8-Fiqblgzzp 0.50 H (0.10-0.40) g/dL Gamma Globulins 1.56 H (0.70-1.50) g/dL Free [place] LC, Quant 26.63 H (0.33-1.94) mg/dL Free Lambda LC, Quant 25.21 H (0.57-2.63) mg/dL Assessment and Plan Time with Patient: Less than 30
[2022-08-14] MEDS: LEVOTHYROXINE 50 MCG TAB PO SCH (05:58)
[2022-08-14] MEDS: carvediloL 12.5 MG TAB PO SCH ×2 (06:48→17:09)
[2022-08-14] MEDS: HEPARIN SODIUM,PORCINE/PF 5,000 UNIT/0.5 ML SYRINGE SQ SCH ×2 (09:16→20:52)
[2022-08-14] MEDS: hydrALAZINE HCL 50 MG TAB PO SCH ×2 (09:17→20:52)
[2022-08-14] MEDS: FAMOTIDINE 20 MG TAB PO SCH (09:17)
[2022-08-14] MEDS: QUEtiapine 25 MG TAB PO SCH (09:17)
[2022-08-14] MEDS: ASPIRIN 81 MG PO SCH (09:17)
[2022-08-14] MEDS: ATORVASTATIN 40 MG TAB PO SCH (09:17)
[2022-08-14] MEDS: CLOPIDOGREL 75 MG TAB PO SCH (09:17)
[2022-08-14] MEDS: ISOSORBIDE MONONITRATE ER 30 MG TAB.ER.24H PO SCH (09:17)
--- NOTE | 2022-08-14 10:57 | P.PN ---
Subjective Progress Note Date: 08/14/22 PROGRESS NOTE The patient is a 66-year-old male with known history of hypertension, CAD, end- stage renal disease who presented with symptoms of progressive fatigue, change in mental status and minimal troponin elevation. He feels and looks better today. He denies any chest discomfort. He denies any dizziness or palpitations. He underwent dialysis yesterday. August 14: The patient is feeling well today, he is scheduled to undergo dialysis tomorrow. He feels stronger. He denies any chest discomfort, dizziness or palpitations. He denies any nausea or vomiting. Medications: Aspirin, Lipitor 40 mg daily, Coreg 12.5 mg twice a day, hydralazine 50 mg twice a day, Imdur 30 mg daily, PHYSICAL EXAMINATION: Blood pressure 117/60 heart rate 65 LUNGS: Clear to auscultation HEART: Regular rate and rhythm, S1, S2. No S3. systolic ejection murmur ABDOMEN: Soft, nontender, no organomegaly EXTREMETIES: No edema IMPRESSION: 1. CAD, stable 2. End-stage renal disease on dialysis 3. Ischemic cardiomyopathy 4. History of hypertension 5. Hyperlipidemia PLAN: 1. Continue present therapy 2. Follow blood pressure and if needed decrease hydralazine 3. Increase physical activity 4. Depending on his progress further recommendations will be made Objective - Vital Signs Vital signs: Vital Signs Temp 98.2 F 08/14/22 08:00 Pulse 56 L 08/14/22 08:00 Resp 16 08/14/22 08:00 BP 117/65 08/14/22 08:00 Pulse Ox 98 08/14/22 08:00 FiO2 Intake & Output 08/13/22 08/14/22 08/14/22 18:59 06:59 18:59 Intake Total 1790 50 180 Output Total 3000 Balance -1210 50 180 Weight 51 kg Intake: IV 20 Invasive Line 3 20 Oral 670 50 180 Hemodialysis 1100 Output: Urine 0 Hemodialysis 3000 Other: Voiding Method Urinal Urinal Urinal # Voids 0 # Bowel Movements 1 - Labs CBC & Chem 7: 08/12/22 16:49 08/13/22 07:13 Labs: Abnormal Lab Results - Last 24 Hours (Table) 08/12/22 Range/Units 10:49 Albumin (PEP) 3.45 L (3.80-4.90) g/dL Kqqdf-8-[place]vo[place] 0.50 H (0.10-0.40) g/dL Gamma Globulins 1.56 H (0.70-1.50) g/dL
--- NOTE | 2022-08-14 15:11 | P.PN ---
Subjective Progress Note Date: 08/14/22 This is a 66 year old male who is admitted for altered mental status and has been confused with family reporting worsening confusion over the last weeks patient is currently alert x 2-3. Patient had missed his scheduled hemodialysis appointment and family had gone over to check on the patient and found him to be significantly altered and brought in for evaluation. Patient has medical history of renal disease, hypertension, myocardial infarction, thyroid cancer. Usually alert x 4. Patient is a former smoker. He was recently treated with levofloxacin outpatient 2 weeks ago. Apparently patient has not been taking his medications at home. He makes statements about his cat and being suspicious of his cat and his cats friend as the reason for his hospital stay. He had a parathyroid scan done recently as outpatient showing no evidence for mediastinal uptake to suggest mediastinal parathyroid adenoma. Initial lab work reveals a white count of 2.8, hemoglobin of 8.2, platelet count of 114, d-dimer 3.29, INR 1.2, BUN/creatinine of 49 and 7.51. Calcium is elevated at 11, magnesium 2.4, troponin elevation of 0.090, 0.13, 0.327. The lipid panel was essentially normal. Chest x-ray on admission shows cardiomegaly with pulmonary vascular congestion and bilateral pleural effusions. Patient is scheduled to undergo hemodialysis today, neurology, nephrology, and cardiology services have been consulted. At the time of examination patient states his breathing has significant improved, denying shortness of breath, no chest pain, no nausea vomiting or diarrhea. 08/13/2022 Patient evaluated today during hemodialysis. Mentation has improved, patient does continue with significant weakness. Iron studies have been completed revealing Ferritin of 3974, iron 25 and TIBC 158. ProBNP on admission was found to be 324,000. Patient does have history of myelodysplastic disorder and hematology is following patient is undergoing work up due to hypercalcemia. Patient had brain CT done which is negative for enhancing lesion or acute intracranial process. Neurology is recommending EEG. TSH of 16.800, Free T4 of 1.36. PTH intact elevated at 155. Phosphorous remains elevated at 5.6. 08/14/2022 Patient is evaluated today sitting up in bed. He is more awake and alert than yesterday currently only alert to person though he is unsure the time and where he is. Patient is being followed by neurology and recommending EEG which is ordered for tomorrow. Patient is currently hemodynamically stable. Will need ECF placement on discharge due to significant weakness. REVIEW OF SYSTEMS: CONSTITUTIONAL: No fever, no malaise, no fatigue. HEENT: No recent visual problems or hearing problems. Denied any sore throat. CARDIOVASCULAR: No chest pain, orthopnea, PND, no palpitations, no syncope. PULMONARY: No shortness of breath, no cough, no hemoptysis. GASTROINTESTINAL: No diarrhea, no nausea, no vomiting, no abdominal pain. NEUROLOGICAL: No headaches, no weakness, no numbness. The rest of the 14-point review of systems is negative. PHYSICAL EXAMINATION: GENERAL: The patient is alert and oriented x1, not in any acute distress. Well developed, well nourished. HEENT: Pupils are round and equally reacting to light. EOMI. No scleral icterus. No conjunctival pallor. Normocephalic, atraumatic. No pharyngeal erythema. No thyromegaly. CARDIOVASCULAR: S1 and S2 present. No murmurs, rubs, or gallops. PULMONARY: Chest is clear to auscultation, no wheezing or crackles. ABDOMEN: Soft, nontender, nondistended, normoactive bowel sounds. No palpable organomegaly. MUSCULOSKELETAL: No joint swelling or deformity. EXTREMITIES: No cyanosis, clubbing, or pedal edema. NEUROLOGICAL: Gross neurological examination did not reveal any focal deficits. Diffused weakness. SKIN: No rashes. Left AV fistula in place. Assessment and plan Acute CHF exacerbation Volume overload secondary to missed hemodialysis Acute hypoxic respiratory failure secondary to volume overload weaned down to 2L nasal cannula. Altered mental status likely acute metabolic encephalopathy from renal failure rule out brain metastasis Elevated D-Dimer Electrolyte imbalance with elevated magnesium, phosphorous and calcium End stage renal disease maintained on hemodialysis Anemia of chronic disease Hx of myelodysplastic disorder Mild aortic stenosis Heart failure systolic dysfunction EF 35%. History of thyroid cancer Hypertension S/P right nephrectomy Hx myocardial infarction Former Smoker GI prophylaxis DVT prophylaxis Full Code Plan Patient is being followed by multiple consultations including neurology, cardiology, nephrology Patients mentation has improved not back at baseline. EEG is recommending by neurology and pending at this time Creatinine has improved after patient resumed on scheduled dialysis Recommend to continue weaning oxygen as tolerated. PT/OT have been consulted patient will likely need [facility] on discharge unable to care for himself at home The impression and plan of care has been dictated by Estefanía Adames Nurse Practitioner as directed. Dr. Celsa MD I have performed a history and physical examination and medical decision making of this patient, discussed the same with the dictator, and agree with the dictators assessment and plan as written, documented as a scribe. Based on total visit time, I have performed more than 50% of this visit. Objective - Vital Signs Vital signs: Vital Signs Temp 98.1 F 08/14/22 04:00 Pulse 63 08/14/22 04:00 Resp 16 08/14/22 04:00 BP 129/69 08/14/22 04:00 Pulse Ox 99 08/14/22 07:44 FiO2 Intake & Output 08/13/22 08/14/22 08/14/22 18:59 06:59 18:59 Intake Total 1790 50 180 Output Total 3000 Balance -1210 50 180 Weight 51 kg Intake: IV 20 Invasive Line 3 20 Oral 670 50 180 Hemodialysis 1100 Output: Urine 0 Hemodialysis 3000 Other: Voiding Method Urinal Urinal # Voids 0 # Bowel Movements 1 - Labs CBC & Chem 7: 08/12/22 16:49 08/13/22 07:13 Labs: Abnormal Lab Results - Last 24 Hours (Table) 08/12/22 Range/Units 10:49 Albumin (PEP) 3.45 L (3.80-4.90) g/dL Tbmcx-0-Toacvnfew 0.50 H (0.10-0.40) g/dL Gamma Globulins 1.56 H (0.70-1.50) g/dL Assessment and Plan Time with Patient: Less than 30
--- NOTE | 2022-08-14 15:33 | P.PN ---
Subjective Progress Note Date: 08/14/22 Follow-up for ESRD. Objective - Vital Signs Vital signs: Vital Signs Temp 98.2 F 08/14/22 08:00 Pulse 68 08/14/22 12:00 Resp 16 08/14/22 12:00 BP 115/62 08/14/22 12:00 Pulse Ox 97 08/14/22 12:00 FiO2 Intake & Output 08/13/22 08/14/22 08/14/22 18:59 06:59 18:59 Intake Total 1790 50 360 Output Total 3000 Balance -1210 50 360 Weight 51 kg Intake: IV 20 Invasive Line 3 20 Oral 670 50 360 Hemodialysis 1100 Output: Urine 0 Hemodialysis 3000 Other: Voiding Method Urinal Urinal Urinal # Voids 0 0 # Bowel Movements 1 - Exam No acute distress S1-S2 heard Decreased breath sounds Right jugular permacath Edema left upper arm aVF - Labs CBC & Chem 7: 08/12/22 16:49 08/13/22 07:13 Assessment and Plan Assessment: #1 ESRD on hemodialysis, TTS schedule. #2 medical status changes #3 tertiary hyperparathyroidism with underlying ESRD #4 anemia with ESRD #5 hypertension with ESRD #6 metabolic bone disease Plan: #1 hemodialysis yesterday. Next treatment on Monday #2 ESRD medications
[2022-08-14] MEDS: SODIUM CHLORIDE 0.9% 1,000 ML IV SCH (20:06)
[2022-08-15] MEDS: carvediloL 12.5 MG TAB PO SCH ×2 (06:58→17:03)
[2022-08-15] MEDS: LEVOTHYROXINE 50 MCG TAB PO SCH (06:58)
[2022-08-15] MEDS: QUEtiapine 25 MG TAB PO SCH (08:17)
[2022-08-15] MEDS: ISOSORBIDE MONONITRATE ER 30 MG TAB.ER.24H PO SCH (08:17)
[2022-08-15] MEDS: CLOPIDOGREL 75 MG TAB PO SCH (08:17)
[2022-08-15] MEDS: HEPARIN SODIUM,PORCINE/PF 5,000 UNIT/0.5 ML SYRINGE SQ SCH ×2 (08:17→20:46)
[2022-08-15] MEDS: FAMOTIDINE 20 MG TAB PO SCH (08:17)
[2022-08-15] MEDS: ASPIRIN 81 MG PO SCH (08:17)
[2022-08-15] MEDS: ATORVASTATIN 40 MG TAB PO SCH (08:17)
[2022-08-15] MEDS: hydrALAZINE HCL 50 MG TAB PO SCH ×2 (09:28→20:46)
[2022-08-15 10:25] LABS: Anisocytosis Slight; Basophils % (A) 1 %; Eosinophils # (A) 0.2 k/uL (0-0.7); Eosinophils % (A) 8 %; HCT 25.1 % (39.0-53.0); HGB 7.5 gm/dL (13.0-17.5); Hypochromasia Marked; Lymphocytes # (A) 0.3 k/uL (1.0-4.8); Lymphocytes % (A) 14 %; MCH 25.7 pg (25.0-35.0); MCV 85.9 fL (80.0-100.0); Mean Platelet Volume 8.9; Monocytes # (A) 0.2 k/uL (0-1.0); Monocytes % (A) 10 %; Neutrophils # (A) 1.5 k/uL (1.3-7.7); Neutrophils % (A) 64 %; RBC 2.92 m/uL (4.30-5.90); RDW 17.4 % (11.5-15.5); WBC 2.4 k/uL (3.8-10.6)
[2022-08-15 10:46] LABS: African American GFR (CKD) 10 (>60 ml/min/1.73 sqM); Anion Gap 10 mmol/L; Blood Urea Nitrogen 52 mg/dL (9-20); Calcium 10.5 mg/dL (8.4-10.2); Carbon Dioxide 31 mmol/L (22-30); Chloride 97 mmol/L (98-107); Glucose 98 mg/dL (74-99); Magnesium 2.3 mg/dL (1.6-2.3); Non-African American GFR(CKD) 9 (>60 ml/min/1.73 sqM); Potassium 3.8 mmol/L (3.5-5.1); Sodium 138 mmol/L (137-145)
[2022-08-15] MEDS: SODIUM CHLORIDE 0.9% 1,000 ML IV SCH (11:04)
--- NOTE | 2022-08-15 11:13 | P.PN ---
Subjective Patient is seen for follow-up for end-stage renal disease No significant complaints today Scheduled for hemodialysis in a.m. Objective - Vital Signs Vital signs: Vital Signs Temp 98.0 F 08/15/22 08:12 Pulse 64 08/15/22 08:12 Resp 20 08/15/22 08:12 BP 116/61 08/15/22 08:12 Pulse Ox 95 08/15/22 08:15 FiO2 Intake & Output 08/14/22 08/15/22 08/15/22 18:59 06:59 18:59 Intake Total 540 310 118 Balance 540 310 118 Weight 50.5 kg Intake: IV 10 Invasive Line 4 10 Oral 540 300 118 Other: Voiding Method Urinal Urinal Urinal # Voids 0 0 - Exam Patient is awake, comfortable, no acute distress Examination of the heart S1 and S2 Examination lungs bilateral breath sounds are heard Abdomen is soft nontender Examination lower extremity shows no significant edema Patient has left arm AV fistula - Labs CBC & Chem 7: 08/15/22 09:48 08/15/22 09:48 Labs: Abnormal Lab Results - Last 24 Hours (Table) 08/15/22 08/15/22 Range/Units 09:48 09:48 WBC 2.4 L (3.8-10.6) k/uL RBC 2.92 L (4.30-5.90) m/uL Hgb 7.5 L (13.0-17.5) gm/dL Hct 25.1 L (39.0-53.0) % MCHC 30.0 L (31.0-37.0) g/dL RDW 17.4 H (11.5-15.5) % Chloride 97 L (98-107) mmol/L Carbon Dioxide 31 H (22-30) mmol/L BUN 52 H (9-20) mg/dL Creatinine 6.15 H (0.66-1.25) mg/dL Calcium 10.5 H (8.4-10.2) mg/dL Assessment and Plan Assessment: 1. End-stage renal disease on hemodialysis on a Monday schedule 2. Mental status changes, seems to have improved. EEG planned for today. Been followed by neurology. 3. 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 Patient will be started on Sensipar 4. Anemia with end-stage renal disease and history of GI bleed. No active bleeding noted Plan: Hemodialysis in a.m. Add Gretchen Discharge to extended care facility
[2022-08-15 11:21] LABS: Platelet Count 90 k/uL (150-450)
[2022-08-15] MEDS ORDERED: DARBEPOETIN ALFA 60 MCG/0.3 ML SYRINGE SQ SCH (12:00)
[2022-08-15 12:23] LABS: Angiotensin-1 Converting Enz. 43 U/L (8-52)
--- NOTE | 2022-08-15 12:30 | P.PN ---
Subjective Progress Note Date: 08/15/22 Principal diagnosis: Weakness, acute renal failure. History of MDS In f/u today reports feeling a little better after dialysis on Sat. His mental status is improved. Denies fever, vomiting, abd pain. Objective - Vital Signs Vital signs: Vital Signs Temp 98.0 F 08/15/22 08:12 Pulse 61 08/15/22 11:03 Resp 16 08/15/22 11:03 BP 120/67 08/15/22 11:03 Pulse Ox 98 08/15/22 11:03 FiO2 Intake & Output 08/14/22 08/15/22 08/15/22 18:59 06:59 18:59 Intake Total 540 310 118 Balance 540 310 118 Weight 50.5 kg 50.5 kg Intake: IV 10 Invasive Line 4 10 Oral 540 300 118 Other: Voiding Method Urinal Urinal Urinal # Voids 0 0 - Constitutional General appearance: Present: cooperative, no acute distress, thin - EENT Eyes: Present: anicteric sclerae, EOMI ENT: Present: hearing grossly normal - Respiratory Details: Respirations even and unlabored at rest - Cardiovascular Rhythm: regular - Peripheral edema leg Peripheral Edema: bilateral: None - Gastrointestinal General gastrointestinal: Present: soft - Neurologic Neurologic: Present: CNII-XII intact (grossly) - Musculoskeletal Musculoskeletal: Present: generalized weakness - Psychiatric Psychiatric: Present: A&O x's 3, appropriate affect, intact judgment & insight - Additional findings Additional findings: Very large left upper extremity fistula - Labs CBC & Chem 7: 08/15/22 09:48 08/15/22 09:48 Labs: Abnormal Lab Results - Last 24 Hours (Table) 08/15/22 08/15/22 Range/Units 09:48 09:48 WBC 2.4 L (3.8-10.6) k/uL RBC 2.92 L (4.30-5.90) m/uL Hgb 7.5 L (13.0-17.5) gm/dL Hct 25.1 L (39.0-53.0) % MCHC 30.0 L (31.0-37.0) g/dL RDW 17.4 H (11.5-15.5) % Plt Count 90 L (150-450) k/uL Lymphocytes # 0.3 L (1.0-4.8) k/uL Chloride 97 L (98-107) mmol/L Carbon Dioxide 31 H (22-30) mmol/L BUN 52 H (9-20) mg/dL Creatinine 6.15 H (0.66-1.25) mg/dL Calcium 10.5 H (8.4-10.2) mg/dL - Imaging and Cardiology CT Scan - head: report reviewed (with/without contrast-no evidence of metastatic disease) Assessment and Plan (1) MDS (myelodysplastic syndrome) Current Visit: Yes Status: Chronic Priority: Medium Code(s): D46.9 - MYELODYSPLASTIC SYNDROME, UNSPECIFIED SNOMED Code(s): 775222763 (2) Pancytopenia, acquired Current Visit: Yes Status: Chronic Priority: Medium Code(s): D61.818 - OTHER PANCYTOPENIA SNOMED Code(s): 6155925 (3) Renal failure (ARF), acute on chronic Current Visit: Yes Status: Acute Priority: High Code(s): N17.9 - ACUTE KIDNEY FAILURE, UNSPECIFIED SNOMED Code(s): 912192560 (4) Weakness Current Visit: Yes Status: Acute Priority: High Code(s): R53.1 - WEAKNESS SNOMED Code(s): 91006580 Plan: MDS, pancytopenia -Work up showing anemia of inflammation with ferritin 3,000. No B vit deficiencies. -No Monoclonal paraproteinemia. Elevated K/L light chains with normal ratio- most consistent with inflammation -Counts are low but adequate at this time. Transfuse for Hgb <7. Nephrology initiated ROSALBA. Transfuse for plt <10,000. No reported bleeding, no drop in Hgb suspicious for acute bleeding, plt 90,000 today. WBC low, adequate ANC of 1500. Cont to monitor counts while inpt -Pt not interested in Hematology f/u at this time. Encouraged to f/u at least with PCP for CBC monitoring. Hypercalcemia -2/2 renal disease? Check after dialysis to see if back to normal Weakness -multi-factorial including anemia, CKD, dialysis. Not certain at this time if pt will require rehab
[2022-08-15 14:48] LABS: Protein, Total 6.9 g/dL (5.7-8.2)
--- NOTE | 2022-08-15 14:56 | P.PN ---
Subjective Progress Note Date: 08/15/22 This is a 66 year old male who is admitted for altered mental status and has been confused with family reporting worsening confusion over the last weeks patient is currently alert x 2-3. Patient had missed his scheduled hemodialysis appointment and family had gone over to check on the patient and found him to be significantly altered and brought in for evaluation. Patient has medical history of renal disease, hypertension, myocardial infarction, thyroid cancer. Usually alert x 4. Patient is a former smoker. He was recently treated with levofloxacin outpatient 2 weeks ago. Apparently patient has not been taking his medications at home. He makes statements about his cat and being suspicious of his cat and his cats friend as the reason for his hospital stay. He had a parathyroid scan done recently as outpatient showing no evidence for mediastinal uptake to suggest mediastinal parathyroid adenoma. Initial lab work reveals a white count of 2.8, hemoglobin of 8.2, platelet count of 114, d-dimer 3.29, INR 1.2, BUN/creatinine of 49 and 7.51. Calcium is elevated at 11, magnesium 2.4, troponin elevation of 0.090, 0.13, 0.327. The lipid panel was essentially normal. Chest x-ray on admission shows cardiomegaly with pulmonary vascular congestion and bilateral pleural effusions. Patient is scheduled to undergo hemodialysis today, neurology, nephrology, and cardiology services have been consulted. At the time of examination patient states his breathing has significant improved, denying shortness of breath, no chest pain, no nausea vomiting or diarrhea. 08/13/2022 Patient evaluated today during hemodialysis. Mentation has improved, patient does continue with significant weakness. Iron studies have been completed revealing Ferritin of 3974, iron 25 and TIBC 158. ProBNP on admission was found to be 324,000. Patient does have history of myelodysplastic disorder and hematology is following patient is undergoing work up due to hypercalcemia. Patient had brain CT done which is negative for enhancing lesion or acute intracranial process. Neurology is recommending EEG. TSH of 16.800, Free T4 of 1.36. PTH intact elevated at 155. Phosphorous remains elevated at 5.6. 08/14/2022 Patient is evaluated today sitting up in bed. He is more awake and alert than yesterday currently only alert to person though he is unsure the time and where he is. Patient is being followed by neurology and recommending EEG which is ordered for tomorrow. Patient is currently hemodynamically stable. Will need ECF placement on discharge due to significant weakness. 08/15/2022 Patient is evaluated today on the medical floor. Patient to resume normal TTS hemodialysis schedule tomorrow. Alert x 4 today mentation has improved. Patient is currently pending EEG and neurology is following closely. Unable to undergo MRI. Hematology following, hemoglobin is 7.5 today, white count of 2.4, platelet count of 90. Patient has been started on darbepoetin. Discussed with case management services discharge planning, plan is for [facility] on discharge. REVIEW OF SYSTEMS: CONSTITUTIONAL: No fever, no malaise, no fatigue. HEENT: No recent visual problems or hearing problems. Denied any sore throat. CARDIOVASCULAR: No chest pain, orthopnea, PND, no palpitations, no syncope. PULMONARY: No shortness of breath, no cough, no hemoptysis. GASTROINTESTINAL: No diarrhea, no nausea, no vomiting, no abdominal pain. NEUROLOGICAL: No headaches, no weakness, no numbness. The rest of the 14-point review of systems is negative. PHYSICAL EXAMINATION: GENERAL: The patient is alert and oriented x4, not in any acute distress. Well developed, well nourished. HEENT: Pupils are round and equally reacting to light. EOMI. No scleral icterus. No conjunctival pallor. Normocephalic, atraumatic. No pharyngeal erythema. No thyromegaly. CARDIOVASCULAR: S1 and S2 present. No murmurs, rubs, or gallops. PULMONARY: Chest is clear to auscultation, no wheezing or crackles. ABDOMEN: Soft, nontender, nondistended, normoactive bowel sounds. No palpable organomegaly. MUSCULOSKELETAL: No joint swelling or deformity. EXTREMITIES: No cyanosis, clubbing, or pedal edema. NEUROLOGICAL: Gross neurological examination did not reveal any focal deficits. Diffused weakness. SKIN: No rashes. Left AV fistula in place. Assessment and plan Acute CHF exacerbation Volume overload secondary to missed hemodialysis Acute hypoxic respiratory failure secondary to volume overload weaned down to 2L nasal cannula. Altered mental status likely acute metabolic encephalopathy from renal failure rule out brain metastasis Elevated D-Dimer Electrolyte imbalance with elevated magnesium, phosphorous and calcium End stage renal disease maintained on hemodialysis Anemia of chronic disease Hx of myelodysplastic disorder Mild aortic stenosis Heart failure systolic dysfunction EF 35%. History of thyroid cancer Hypertension S/P right nephrectomy Hx myocardial infarction Former Smoker GI prophylaxis DVT prophylaxis Full Code Plan Patient is being followed by multiple consultations including neurology, cardiology, nephrology Patient is currently alert x 4, neurology following EEG is done and pending. Creatinine has improved after patient resumed on scheduled dialysis with next dialysis session set for tomorrow to resume TTS. Recommend to continue weaning oxygen as tolerated. Patient unable to care for himself at home, referral sent for [facility] and patient possible DC in the next 24-48 hrs with discharge planning in place. The impression and plan of care has been dictated by Estefanía Adames, Nurse Practitioner as directed. Dr. Celsa MD I have performed a history and physical examination and medical decision making of this patient, discussed the same with the dictator, and agree with the dictators assessment and plan as written, documented as a scribe. Based on total visit time, I have performed more than 50% of this visit. Objective - Vital Signs Vital signs: Vital Signs Temp 98.0 F 08/15/22 08:12 Pulse 61 08/15/22 13:21 Resp 16 08/15/22 11:03 BP 120/67 08/15/22 11:03 Pulse Ox 98 08/15/22 11:03 FiO2 Intake & Output 08/14/22 08/15/22 08/15/22 18:59 06:59 18:59 Intake Total 540 310 236 Balance 540 310 236 Weight 50.5 kg 50.5 kg Intake: IV 10 Invasive Line 4 10 Oral 540 300 236 Other: Voiding Method Urinal Urinal Urinal # Voids 0 0 - Labs CBC & Chem 7: 08/15/22 09:48 08/15/22 09:48 Labs: Abnormal Lab Results - Last 24 Hours (Table) 08/15/22 08/15/22 Range/Units 09:48 09:48 WBC 2.4 L (3.8-10.6) k/uL RBC 2.92 L (4.30-5.90) m/uL Hgb 7.5 L (13.0-17.5) gm/dL Hct 25.1 L (39.0-53.0) % MCHC 30.0 L (31.0-37.0) g/dL RDW 17.4 H (11.5-15.5) % Plt Count 90 L (150-450) k/uL Lymphocytes # 0.3 L (1.0-4.8) k/uL Chloride 97 L (98-107) mmol/L Carbon Dioxide 31 H (22-30) mmol/L BUN 52 H (9-20) mg/dL Creatinine 6.15 H (0.66-1.25) mg/dL Calcium 10.5 H (8.4-10.2) mg/dL Assessment and Plan Time with Patient: Less than 30
--- NOTE | 2022-08-15 14:56 | P.PN ---
Subjective PROGRESS NOTE The patient is a 66-year-old male with known history of hypertension, CAD, end- stage renal disease who presented with symptoms of progressive fatigue, change in mental status and minimal troponin elevation. He feels and looks better today. He denies any chest discomfort. He denies any dizziness or palpitations. He underwent dialysis yesterday. August 14: The patient is feeling well today, he is scheduled to undergo dialysis tomorrow. He feels stronger. He denies any chest discomfort, dizziness or palpitations. He denies any nausea or vomiting. 08/15 Patient seen and examined. Overall he is feeling somewhat better. He denies chest pain or pressure. No significant shortness breath. Echocardiogram did show severe aortic stenosis. PHYSICAL EXAMINATION: Vitals reviewed LUNGS: Clear to auscultation HEART: Regular rate and rhythm, S1, S2. No S3. systolic ejection murmur ABDOMEN: Soft, nontender, no organomegaly EXTREMETIES: No edema IMPRESSION: 1. CAD, stable 2. End-stage renal disease on dialysis 3. Ischemic cardiomyopathy 4. History of hypertension 5. Hyperlipidemia 6. Severe aortic stenosis PLAN: Currently appears to be improving. Echocardiogram did show severe aortic stenosis with some component of low-flow low gradient and does have significant systolic ejection murmur. Further workup for possible aortic valve replacement can be performed as an outpatient. Objective - Vital Signs Vital signs: Vital Signs Temp 98.0 F 08/15/22 08:12 Pulse 61 08/15/22 13:21 Resp 16 08/15/22 11:03 BP 120/67 08/15/22 11:03 Pulse Ox 98 08/15/22 11:03 FiO2 Intake & Output 08/14/22 08/15/22 08/15/22 18:59 06:59 18:59 Intake Total 540 310 236 Balance 540 310 236 Weight 50.5 kg 50.5 kg Intake: IV 10 Invasive Line 4 10 Oral 540 300 236 Other: Voiding Method Urinal Urinal Urinal # Voids 0 0 - Labs CBC & Chem 7: 08/15/22 09:48 08/15/22 09:48 Labs: Abnormal Lab Results - Last 24 Hours (Table) 08/15/22 08/15/22 Range/Units 09:48 09:48 WBC 2.4 L (3.8-10.6) k/uL RBC 2.92 L (4.30-5.90) m/uL Hgb 7.5 L (13.0-17.5) gm/dL Hct 25.1 L (39.0-53.0) % MCHC 30.0 L (31.0-37.0) g/dL RDW 17.4 H (11.5-15.5) % Plt Count 90 L (150-450) k/uL Lymphocytes # 0.3 L (1.0-4.8) k/uL Chloride 97 L (98-107) mmol/L Carbon Dioxide 31 H (22-30) mmol/L BUN 52 H (9-20) mg/dL Creatinine 6.15 H (0.66-1.25) mg/dL Calcium 10.5 H (8.4-10.2) mg/dL
--- NOTE | 2022-08-15 20:44 | EEG ---
ELECTROENCEPHALOGRAM REPORT CLINICAL HISTORY: This is a 66-year-old gentleman with altered mental status. The video EEG is obtained to evaluate for seizure epileptiform activity. RELEVANT MEDICATION: The patient is not on any antiepileptic drugs. EEG TYPE: A routine 21-channel EEG is performed with video using the 10/20 electrode placement system. DESCRIPTION: Wakefulness is only obtained. During awake state, the background consists of low-to- moderate voltage of 6.5 to 7 hertz activity that is well modulated and well sustained. There is no physiological sleep architecture seen. There is no focal slowing. There is diffuse [id number] myogenic artifact. Interictal and ictal is none. ACTIVATION PROCEDURE: Photic stimulation did not evoke a posterior driving response. There is no abnormality during the photic stimulation. Hyperventilation is not performed. CLINICAL INTERPRETATION: This is an abnormal routine EEG. The background slowing is suggestive of mild encephalopathy likely due to toxic metabolic derangement. Otherwise, there is no focal slowing, epileptiform discharges, or seizure on the EEG. Clinical correlation is recommended. MMDANISH / BROOKN: [id number] / ISABELA
[2022-08-15 21:46] LABS: Vitamin D, 1, 25-Dihydroxy 152 pg/mL (20 - 79)
[2022-08-16] MEDS: LEVOTHYROXINE 50 MCG TAB PO SCH (06:13)
[2022-08-16] MEDS: carvediloL 12.5 MG TAB PO SCH ×2 (06:13→17:47)
--- NOTE | 2022-08-16 11:36 | P.PN ---
Subjective Patient is seen for follow-up for end-stage renal disease No significant complaints today Seen on hemodialysis. Tolerating treatment well. Objective - Vital Signs Vital signs: Vital Signs Temp 98.0 F 08/16/22 04:00 Pulse 66 08/16/22 04:00 Resp 16 08/16/22 04:00 BP 108/64 08/16/22 04:00 Pulse Ox 96 08/16/22 04:00 FiO2 Intake & Output 08/15/22 08/16/22 08/16/22 18:59 06:59 18:59 Intake Total 594 240 Balance 594 240 Weight 50.5 kg 51.3 kg Intake: Oral 594 240 Other: Voiding Method Urinal Urinal # Bowel Movements 1 - Exam Patient is awake, comfortable, no acute distress Abdomen is soft nontender Examination lower extremity shows no significant edema Patient has left arm AV fistula - Labs CBC & Chem 7: 08/15/22 09:48 08/15/22 09:48 Labs: Abnormal Lab Results - Last 24 Hours (Table) 08/12/22 Range/Units 10:49 Vit D 1,25-Dihydroxy 152 H (20 - 79) pg/mL Assessment and Plan Assessment: 1. End-stage renal disease on hemodialysis on a Monday schedule 2. Mental status changes, seems to have improved. Been followed by neurology. 3. 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 Patient will be started on Sensipar 4. Anemia with end-stage renal disease and history of GI bleed. No active bleeding noted Plan: Hemodialysis today Add Sensipar 30 mg once a week Add Aranesp Discharge to extended care facility
[2022-08-16] MEDS: QUEtiapine 25 MG TAB PO SCH (12:44)
[2022-08-16] MEDS: ASPIRIN 81 MG PO SCH (12:44)
[2022-08-16] MEDS: ATORVASTATIN 40 MG TAB PO SCH (12:44)
[2022-08-16] MEDS: CLOPIDOGREL 75 MG TAB PO SCH (12:44)
[2022-08-16] MEDS: hydrALAZINE HCL 50 MG TAB PO SCH ×2 (12:44→21:47)
[2022-08-16] MEDS: FAMOTIDINE 20 MG TAB PO SCH (12:44)
[2022-08-16] MEDS: ISOSORBIDE MONONITRATE ER 30 MG TAB.ER.24H PO SCH (12:44)
[2022-08-16] MEDS: HEPARIN SODIUM,PORCINE/PF 5,000 UNIT/0.5 ML SYRINGE SQ SCH ×2 (12:44→21:47)
--- NOTE | 2022-08-16 17:59 | P.PN ---
Subjective PROGRESS NOTE The patient is a 66-year-old male with known history of hypertension, CAD, end- stage renal disease who presented with symptoms of progressive fatigue, change in mental status and minimal troponin elevation. He feels and looks better today. He denies any chest discomfort. He denies any dizziness or palpitations. He underwent dialysis yesterday. August 14: The patient is feeling well today, he is scheduled to undergo dialysis tomorrow. He feels stronger. He denies any chest discomfort, dizziness or palpitations. He denies any nausea or vomiting. 08/15 Patient seen and examined. Overall he is feeling somewhat better. He denies chest pain or pressure. No significant shortness breath. Echocardiogram did show severe aortic stenosis. 08/16 Seen and examined. Overall he states he feels predominantly back to normal. Appears he is awaiting discharge to subacute rehab. Underwent dialysis today. No acute events today. PHYSICAL EXAMINATION: Vitals reviewed LUNGS: Clear to auscultation HEART: Regular rate and rhythm, S1, S2. No S3. systolic ejection murmur ABDOMEN: Soft, nontender, no organomegaly EXTREMETIES: No edema IMPRESSION: 1. CAD, stable 2. End-stage renal disease on dialysis 3. Ischemic cardiomyopathy 4. History of hypertension 5. Hyperlipidemia 6. Severe aortic stenosis PLAN: Currently appears stable from a cardiac standpoint. Patient cleared for discharge home with outpatient workup for aortic valve replacement. No further recommendations. Please call with any questions. Objective - Vital Signs Vital signs: Vital Signs Temp 96.8 F L 08/16/22 13:06 Pulse 78 08/16/22 14:00 Resp 16 08/16/22 14:00 BP 142/75 08/16/22 13:06 Pulse Ox 98 08/16/22 12:00 FiO2 Intake & Output 08/15/22 08/16/22 08/16/22 18:59 06:59 18:59 Intake Total 594 658 Output Total 900 Balance 594 -242 Weight 50.5 kg 51.3 kg Intake: Oral 594 358 Hemodialysis 300 Output: Hemodialysis 900 Other: Voiding Method Urinal Urinal Urinal # Bowel Movements 1 - Labs CBC & Chem 7: 08/15/22 09:48 08/15/22 09:48 Labs: Abnormal Lab Results - Last 24 Hours (Table) 08/12/22 Range/Units 10:49 Vit D 1,25-Dihydroxy 152 H (20 - 79) pg/mL
--- NOTE | 2022-08-16 19:37 | P.PN ---
Subjective Progress Note Date: 08/16/22 This is a 66 year old male who is admitted for altered mental status and has been confused with family reporting worsening confusion over the last weeks patient is currently alert x 2-3. Patient had missed his scheduled hemodialysis appointment and family had gone over to check on the patient and found him to be significantly altered and brought in for evaluation. Patient has medical history of renal disease, hypertension, myocardial infarction, thyroid cancer. Usually alert x 4. Patient is a former smoker. He was recently treated with levofloxacin outpatient 2 weeks ago. Apparently patient has not been taking his medications at home. He makes statements about his cat and being suspicious of his cat and his cats friend as the reason for his hospital stay. He had a parathyroid scan done recently as outpatient showing no evidence for mediastinal uptake to suggest mediastinal parathyroid adenoma. Initial lab work reveals a white count of 2.8, hemoglobin of 8.2, platelet count of 114, d-dimer 3.29, INR 1.2, BUN/creatinine of 49 and 7.51. Calcium is elevated at 11, magnesium 2.4, troponin elevation of 0.090, 0.13, 0.327. The lipid panel was essentially normal. Chest x-ray on admission shows cardiomegaly with pulmonary vascular congestion and bilateral pleural effusions. Patient is scheduled to undergo hemodialysis today, neurology, nephrology, and cardiology services have been consulted. At the time of examination patient states his breathing has significant improved, denying shortness of breath, no chest pain, no nausea vomiting or diarrhea. 08/13/2022 Patient evaluated today during hemodialysis. Mentation has improved, patient does continue with significant weakness. Iron studies have been completed revealing Ferritin of 3974, iron 25 and TIBC 158. ProBNP on admission was found to be 324,000. Patient does have history of myelodysplastic disorder and hematology is following patient is undergoing work up due to hypercalcemia. Patient had brain CT done which is negative for enhancing lesion or acute intracranial process. Neurology is recommending EEG. TSH of 16.800, Free T4 of 1.36. PTH intact elevated at 155. Phosphorous remains elevated at 5.6. 08/14/2022 Patient is evaluated today sitting up in bed. He is more awake and alert than yesterday currently only alert to person though he is unsure the time and where he is. Patient is being followed by neurology and recommending EEG which is ordered for tomorrow. Patient is currently hemodynamically stable. Will need ECF placement on discharge due to significant weakness. 08/15/2022 Patient is evaluated today on the medical floor. Patient to resume normal [facility] hemodialysis schedule tomorrow. Alert x 4 today mentation has improved. Patient is currently pending EEG and neurology is following closely. Unable to undergo MRI. Hematology following, hemoglobin is 7.5 today, white count of 2.4, platelet count of 90. Patient has been started on darbepoetin. Discussed with case management services discharge planning, plan is for [facility] on discharge. 08/16/2022 Patient is seen and evaluated in follow-up today with cardiology, neurology, and nephrology following. Patient underwent EEG yesterday showing encephalopathy with no epileptiform discharges noted. Patient's mentation is improved and baseline. Patient is receiving hemodialysis today and maintained on Monday//Monday schedule and will continue. Nephrology following adding Sensipar and will follow-up outpatient. Patient with significant weakness with case management/social work following working on discharge planning to [facility] and patient has been accepted. Patient will require 3 night hospitalization stay according to insurance guidelines prior to discharge to ECF. Patient is afebrile with no reports of nausea or vomiting noted. Patient is tolerating diet and denies any chest pain or shortness of breath. Recommend physical therapy evaluation daily. REVIEW OF SYSTEMS: CONSTITUTIONAL: No fever, no malaise, no fatigue. HEENT: No recent visual problems or hearing problems. Denied any sore throat. CARDIOVASCULAR: No chest pain, orthopnea, PND, no palpitations, no syncope. PULMONARY: No shortness of breath, no cough, no hemoptysis. GASTROINTESTINAL: No diarrhea, no nausea, no vomiting, no abdominal pain. NEUROLOGICAL: No headaches, reports generalized weakness, no numbness. PHYSICAL EXAMINATION: GENERAL: The patient is alert and oriented x3, currently receiving dialysis. Thin built, elderly appearing Well developed HEENT: Pupils are round and equally reacting to light. EOMI. No scleral icterus. No conjunctival pallor. Normocephalic, atraumatic. No pharyngeal erythema. No thyromegaly. CARDIOVASCULAR: S1 and S2 muffled PULMONARY: Chest is clear to auscultation, no wheezing or crackles. ABDOMEN: Soft, nontender, nondistended, normoactive bowel sounds. No palpable organomegaly. MUSCULOSKELETAL: No joint swelling or deformity. EXTREMITIES: No cyanosis, clubbing, or pedal edema. Large left fistula noted currently undergoing hemodialysis today NEUROLOGICAL: Gross neurological examination did not reveal any focal deficits. Diffused weakness. SKIN: No rashes. Left AV fistula in place. Assessment: Acute CHF exacerbation with systolic dysfunction, EF is 35% Volume overload secondary to missed hemodialysis Acute hypoxic respiratory failure secondary to volume overload weaned FiO2 currently on room air Altered mental status likely acute metabolic encephalopathy from renal failure Elevated D-Dimer Electrolyte imbalance with elevated magnesium, phosphorous and calcium End stage renal disease maintained on hemodialysis Monday//Monday Anemia of chronic disease Hx of myelodysplastic disorder Mild aortic stenosis History of thyroid cancer Hypertension S/P right nephrectomy Hx myocardial infarction Former Smoker GI prophylaxis DVT prophylaxis Full Code Plan: Patient is being followed by multiple consultations including neurology, cardiology, nephrology. Patient receiving dialysis today and will continue on Monday//Monday schedule. Nephrology adding Sensipar and Aranesp recommending close outpatient follow-up Patient is currently alert x 3, neurology following EEG is done and abnormal due to encephalopathy with no epileptiform discharges or seizure activity noted Recommend follow-up labs in a.m. and replace electrolytes per protocol Recommend to continue weaning oxygen as tolerated. Currently on room air Patient unable to care for himself at home, patient has been accepted at [facility] with case management following and will require 3 night hospitalization prior to discharge to [facility]. Plan is for discharge on , 08/18/2022 The impression and plan of care has been dictated by Nurse Latisha Leigh as directed. Dr. Jose Luis MD I have performed a history and examination and MDM of this patient, discussed the same with the dictator, and agree with the dictator's assessment and plan as written ,documented as a scribe. Based on total visit time, I have performed more than 50% of the visit. Objective - Vital Signs Vital signs: Vital Signs Temp 96.8 F L 08/16/22 13:06 Pulse 78 08/16/22 13:06 Resp 16 08/16/22 13:06 BP 142/75 08/16/22 13:06 Pulse Ox 96 08/16/22 04:00 FiO2 Intake & Output 0608/16/22 08/16/22 18:59 06:59 18:59 Intake Total 594 540 Output Total 900 Balance 594 -360 Weight 50.5 kg 51.3 kg Intake: Oral 594 240 Hemodialysis 300 Output: Hemodialysis 900 Other: Voiding Method Urinal Urinal Urinal # Bowel Movements 1 - Labs CBC & Chem 7: 08/15/22 09:48 08/15/22 09:48 Labs: Abnormal Lab Results - Last 24 Hours (Table) 08/12/22 Range/Units 10:49 Vit D 1,25-Dihydroxy 152 H (20 - 79) pg/mL
[2022-08-16] MEDS: SODIUM CHLORIDE 0.9% 1,000 ML IV SCH (21:47)
[2022-08-17] MEDS: carvediloL 12.5 MG TAB PO SCH ×2 (06:39→18:59)
[2022-08-17] MEDS: LEVOTHYROXINE 50 MCG TAB PO SCH (06:40)
[2022-08-17] MEDS: ATORVASTATIN 40 MG TAB PO SCH (08:52)
[2022-08-17] MEDS: ISOSORBIDE MONONITRATE ER 30 MG TAB.ER.24H PO SCH (08:52)
[2022-08-17] MEDS: hydrALAZINE HCL 50 MG TAB PO SCH ×2 (08:52→19:58)
[2022-08-17] MEDS: QUEtiapine 25 MG TAB PO SCH (08:52)
[2022-08-17] MEDS: FAMOTIDINE 20 MG TAB PO SCH (08:52)
[2022-08-17] MEDS: CLOPIDOGREL 75 MG TAB PO SCH (08:52)
[2022-08-17] MEDS: HEPARIN SODIUM,PORCINE/PF 5,000 UNIT/0.5 ML SYRINGE SQ SCH ×2 (08:52→19:58)
[2022-08-17] MEDS: ASPIRIN 81 MG PO SCH (08:52)
--- NOTE | 2022-08-17 11:25 | P.PN ---
Subjective Patient is seen for follow-up for end-stage renal disease No significant complaints today Tolerated hemodialysis well yesterday Total UF of 900 ML. Objective - Vital Signs Vital signs: Vital Signs Temp 98 F 08/17/22 04:00 Pulse 70 08/17/22 04:00 Resp 18 08/17/22 04:00 BP 141/76 08/17/22 04:00 Pulse Ox 96 08/17/22 08:44 FiO2 Intake & Output 08/16/22 08/17/22 08/17/22 18:59 06:59 18:59 Intake Total 898 1020 Output Total 900 Balance -2 1020 Intake: Oral 598 1020 Hemodialysis 300 Output: Hemodialysis 900 Other: Voiding Method Urinal Urinal # Voids 0 # Bowel Movements 0 - Exam Patient is awake, comfortable, no acute distress Examination of the heart S1 and S2 Examination lungs bilateral breath sounds are heard Abdomen is soft nontender Abdomen is soft nontender Examination lower extremity shows no significant edema Patient has left arm AV fistula - Labs CBC & Chem 7: 08/15/22 09:48 08/15/22 09:48 Assessment and Plan Assessment: 1. End-stage renal disease on hemodialysis on a Monday schedule 2. Mental status changes, seems to have improved. Been followed by neurology. 3. 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 Patient will be started on Sensipar 4. Anemia with end-stage renal disease and history of GI bleed. No active bleeding noted Plan: Hemodialysis in a.m. Continue Sensipar and Aranesp Discharge to extended care facility
[2022-08-17 11:42] LABS: African American GFR (CKD) 10 (>60 ml/min/1.73 sqM); Anion Gap 12 mmol/L; Blood Urea Nitrogen 49 mg/dL (9-20); Calcium 10.5 mg/dL (8.4-10.2); Carbon Dioxide 28 mmol/L (22-30); Chloride 97 mmol/L (98-107); Glucose 98 mg/dL (74-99); Non-African American GFR(CKD) 9 (>60 ml/min/1.73 sqM); Potassium 4.2 mmol/L (3.5-5.1); Sodium 137 mmol/L (137-145)
[2022-08-17 11:47] LABS: Anisocytosis Slight; Basophils % (A) 0 %; Eosinophils # (A) 0.2 k/uL (0-0.7); Eosinophils % (A) 7 %; HCT 25.2 % (39.0-53.0); HGB 7.5 gm/dL (13.0-17.5); Hypochromasia Marked; Lymphocytes # (A) 0.3 k/uL (1.0-4.8); Lymphocytes % (A) 15 %; MCH 25.7 pg (25.0-35.0); MCHC 29.7 g/dL (31.0-37.0); MCV 86.4 fL (80.0-100.0); Mean Platelet Volume 8.2; Monocytes # (A) 0.2 k/uL (0-1.0); Monocytes % (A) 10 %; Neutrophils # (A) 1.5 k/uL (1.3-7.7); Neutrophils % (A) 67 %; Platelet Count 111 k/uL (150-450); RBC 2.92 m/uL (4.30-5.90); WBC 2.3 k/uL (3.8-10.6)
--- NOTE | 2022-08-17 16:13 | P.PN ---
Subjective Progress Note Date: 08/17/22 This is a 66 year old male who is admitted for altered mental status and has been confused with family reporting worsening confusion over the last weeks patient is currently alert x 2-3. Patient had missed his scheduled hemodialysis appointment and family had gone over to check on the patient and found him to be significantly altered and brought in for evaluation. Patient has medical history of renal disease, hypertension, myocardial infarction, thyroid cancer. Usually alert x 4. Patient is a former smoker. He was recently treated with levofloxacin outpatient 2 weeks ago. Apparently patient has not been taking his medications at home. He makes statements about his cat and being suspicious of his cat and his cats friend as the reason for his hospital stay. He had a parathyroid scan done recently as outpatient showing no evidence for mediastinal uptake to suggest mediastinal parathyroid adenoma. Initial lab work reveals a white count of 2.8, hemoglobin of 8.2, platelet count of 114, d-dimer 3.29, INR 1.2, BUN/creatinine of 49 and 7.51. Calcium is elevated at 11, magnesium 2.4, troponin elevation of 0.090, 0.13, 0.327. The lipid panel was essentially normal. Chest x-ray on admission shows cardiomegaly with pulmonary vascular congestion and bilateral pleural effusions. Patient is scheduled to undergo hemodialysis today, neurology, nephrology, and cardiology services have been consulted. At the time of examination patient states his breathing has significant improved, denying shortness of breath, no chest pain, no nausea vomiting or diarrhea. 08/13/2022 Patient evaluated today during hemodialysis. Mentation has improved, patient does continue with significant weakness. Iron studies have been completed revealing Ferritin of 3974, iron 25 and TIBC 158. ProBNP on admission was found to be 324,000. Patient does have history of myelodysplastic disorder and hematology is following patient is undergoing work up due to hypercalcemia. Patient had brain CT done which is negative for enhancing lesion or acute intracranial process. Neurology is recommending EEG. TSH of 16.800, Free T4 of 1.36. PTH intact elevated at 155. Phosphorous remains elevated at 5.6. 08/14/2022 Patient is evaluated today sitting up in bed. He is more awake and alert than yesterday currently only alert to person though he is unsure the time and where he is. Patient is being followed by neurology and recommending EEG which is ordered for tomorrow. Patient is currently hemodynamically stable. Will need ECF placement on discharge due to significant weakness. 08/15/2022 Patient is evaluated today on the medical floor. Patient to resume normal [facility] hemodialysis schedule tomorrow. Alert x 4 today mentation has improved. Patient is currently pending EEG and neurology is following closely. Unable to undergo MRI. Hematology following, hemoglobin is 7.5 today, white count of 2.4, platelet count of 90. Patient has been started on darbepoetin. Discussed with case management services discharge planning, plan is for [facility] on discharge. 08/16/2022 Patient is seen and evaluated in follow-up today with cardiology, neurology, and nephrology following. Patient underwent EEG yesterday showing encephalopathy with no epileptiform discharges noted. Patient's mentation is improved and baseline. Patient is receiving hemodialysis today and maintained on Monday//Monday schedule and will continue. Nephrology following adding Sensipar and will follow-up outpatient. Patient with significant weakness with case management/social work following working on discharge planning to [facility] and patient has been accepted. Patient will require 3 night hospitalization stay according to insurance guidelines prior to discharge to ECF. Patient is afebrile with no reports of nausea or vomiting noted. Patient is tolerating diet and denies any chest pain or shortness of breath. Recommend physical therapy evaluation daily. 08/17/2022 Patient is seen in follow-up this morning with nephrology following maintained on Monday//Monday dialysis with tomorrow morning being another session and then will be discharging to [facility] for continued weakness. Encouraged oral intake and increased activity as tolerated. Patient is currently afebrile with no reports of chest pain or shortness of breath noted. Patient is tolerating diet with no reports of nausea or vomiting noted. Social work following working on discharge planning and patient has been accepted at [facility]. REVIEW OF SYSTEMS: CONSTITUTIONAL: No fever, no malaise, no fatigue. HEENT: No recent visual problems or hearing problems. Denied any sore throat. CARDIOVASCULAR: No chest pain, orthopnea, PND, no palpitations, no syncope. PULMONARY: No shortness of breath, no cough, no hemoptysis. GASTROINTESTINAL: No diarrhea, no nausea, no vomiting, no abdominal pain. NEUROLOGICAL: No headaches, reports generalized weakness, no numbness. PHYSICAL EXAMINATION: GENERAL: The patient is alert and oriented x3, Thin built, elderly appearing Well developed HEENT: Pupils are round and equally reacting to light. EOMI. No scleral icterus. No conjunctival pallor. Normocephalic, atraumatic. No pharyngeal erythema. No thyromegaly. CARDIOVASCULAR: S1 and S2 muffled PULMONARY: Chest is clear to auscultation, no wheezing or crackles. ABDOMEN: Soft, nontender, nondistended, normoactive bowel sounds. No palpable organomegaly. MUSCULOSKELETAL: No joint swelling or deformity. EXTREMITIES: No cyanosis, clubbing, or pedal edema. Large left fistula noted currently undergoing hemodialysis today NEUROLOGICAL: Gross neurological examination did not reveal any focal deficits. Diffused weakness. SKIN: No rashes. Left AV fistula in place. Assessment: Acute CHF exacerbation with systolic dysfunction, EF is 35% Volume overload secondary to missed hemodialysis Acute hypoxic respiratory failure secondary to volume overload weaned FiO2 currently on room air Altered mental status likely acute metabolic encephalopathy from renal failure Elevated D-Dimer Electrolyte imbalance with elevated magnesium, phosphorous and calcium End stage renal disease maintained on hemodialysis Monday//Monday Anemia of chronic disease Hx of myelodysplastic disorder Mild aortic stenosis History of thyroid cancer Hypertension S/P right nephrectomy Hx myocardial infarction Former Smoker GI prophylaxis DVT prophylaxis Full Code Plan: Patient is being followed by multiple consultations including neurology, cardiology, nephrology. Patient receiving dialysis today and will continue on Monday//Monday schedule. Nephrology adding Sensipar and Aranesp recommending close outpatient follow-up Patient is currently alert x 3, neurology following EEG is done and abnormal due to encephalopathy with no epileptiform discharges or seizure activity noted Patient will receive hemodialysis tomorrow and continue with discharge to [facility]. Recommend emergency medicine dialysis possible Currently on room air maintaining oxygen saturations of 96-99% Patient unable to care for himself at home, patient has been accepted at [facility] with case management following and will require 3 night hospitalization [facility]. Plan is for discharge tomorrow to [facility] The impression and plan of care has been dictated by Sulema Crawford, Nurse Practitioner as directed. Dr. Jose Luis MD I have performed a history and examination and MDM of this patient, discussed the same with the dictator, and agree with the dictator's assessment and plan as written ,documented as a scribe. Based on total visit time, I have performed more than 50% of the visit. Objective - Vital Signs Vital signs: Vital Signs Temp 98.2 F 08/17/22 08:00 Pulse 76 08/17/22 12:00 Resp 16 08/17/22 12:00 BP 125/73 08/17/22 12:00 Pulse Ox 99 08/17/22 12:00 FiO2 Intake & Output 08/16/22 08/17/22 08/17/22 18:59 06:59 18:59 Intake Total 898 1020 Output Total 900 Balance -2 1020 Intake: Oral 598 1020 Hemodialysis 300 Output: Hemodialysis 900 Other: Voiding Method Urinal Urinal Urinal # Voids 0 # Bowel Movements 0 - Labs CBC & Chem 7: 08/17/22 10:15 08/17/22 10:15 Labs: Abnormal Lab Results - Last 24 Hours (Table) 08/17/22 08/17/22 Range/Units 10:15 10:15 WBC 2.3 L (3.8-10.6) k/uL RBC 2.92 L (4.30-5.90) m/uL Hgb 7.5 L (13.0-17.5) gm/dL Hct 25.2 L (39.0-53.0) % MCHC 29.7 L (31.0-37.0) g/dL RDW 18.0 H (11.5-15.5) % Plt Count 111 L (150-450) k/uL Lymphocytes # 0.3 L (1.0-4.8) k/uL Chloride 97 L (98-107) mmol/L BUN 49 H (9-20) mg/dL Creatinine 6.00 H (0.66-1.25) mg/dL Calcium 10.5 H (8.4-10.2) mg/dL
[2022-08-17] MEDS: SODIUM CHLORIDE 0.9% 1,000 ML IV SCH (19:58)
[2022-08-18] MEDS: LEVOTHYROXINE 50 MCG TAB PO SCH (06:37)
[2022-08-18] MEDS: carvediloL 12.5 MG TAB PO SCH ×2 (06:37→18:38)
--- NOTE | 2022-08-18 10:25 | CT ---
EXAMINATION TYPE: CT abdomen pelvis wo con CT DLP: 389.6 mGycm, Automated exposure control for dose reduction was used. DATE OF EXAM: 08/18/2022 9:57 AM COMPARISON: CT abdomen pelvis 03/01/2015, MR abdomen 03/30/2022. CLINICAL INDICATION:Male, 66 years old with history of mass; Abdominal mass. Patient poor historian. No complaints at time of scan TECHNIQUE: Standard CT of the abdomen and pelvis without IV or oral contrast. Lack of IV or oral co ntrast limits evaluation of solid and hollow organ viscera. Coronal and sagittal reformats were perfo rmed. FINDINGS: LOWER CHEST: Small left and moderate right pleural effusions with pulmonary vascular congestion and c ardiomegaly. Trace pericardial fluid. Severe coronary arterial calcifications. Right lower lobe atele ctasis with calcified granulomas. Masslike consolidation within the right middle lobe measuring up to 5.3 cm. ABDOMEN LIVER: Unremarkable noncontrast appearance. GALLBLADDER AND BILE DUCTS: Under distended with pericholecystic fluid. PANCREAS: Main pancreatic ductal dilatation measuring up to 5 mm. Valuation is limited due to lack of intravenous contrast. SPLEEN: Enlarged measuring 15.4 cm in CC dimension. ADRENAL GLANDS: Both adrenal glands are not well visualized. KIDNEYS AND URETERS: Right kidney surgically absent. Evaluation in this nephrectomy bed is limited du e to fluid and lack of intravenous contrast. Abnormal appearance of the left kidney again demonstrat ed with large cystic mass measuring up to 5.8 cm. This is decreased in size when it previous measured 7.5 cm. There are adjacent surgical clips or embolization coils in the hilum. PELVIS BLADDER: Diffusely thickened with nonspecific calcifications identified. REPRODUCTIVE: Coarse calcifications of the prostate gland are identified. ABDOMEN & PELVIS STOMACH AND BOWEL: Gastric fundal diverticulum redemonstrated. Distal colonic diverticulosis without definitive evidence for acute diverticulitis. No evidence of bowel obstruction. PERITONEUM: No evidence of pneumoperitoneum. Small amount of ascites throughout the abdomen pelvis. D ecreased size of mass posterior to the gastric body measuring up to 2.2 cm (series 201, and 41). VASCULATURE: Severe atherosclerotic calcifications are present throughout the abdominal aorta and its branches. No evidence of aortic aneurysm. IVC filter identified. MUSCULOSKELETAL: No acute osseous abnormalities. Mild multilevel degenerative disc disease. Mild retr olisthesis of L3 on L4. LYMPH NODES: No gross evidence for lymphadenopathy. SOFT TISSUE/ABDOMINAL WALL: Diffuse anasarca. IMPRESSION: Significantly limited examination due to lack of intravenous and oral contrast. 1. Mild decrease in size of left renal fossa cystic mass when compared to prior MRI 03/30/2022. Inter luciano decrease in mass posterior to the gastric body measuring up to 2.2 cm. Findings again suspicious for metastasis. 2. Postsurgical changes from right nephrectomy. 3. Abnormal appearance of the urinary bladder with wall thickening and nonspecific calcification. Co rrelate with urinalysis. 4. Similar nonspecific main pancreatic ductal dilatation up to 5 mm. This can be further evaluated w ith MRCP as clinically indicated. 5. Splenomegaly. 6. Contracted gallbladder with pericholecystic fluid. Likely related to volume overload. There is cl inical concern, consider further evaluation with right upper quadrant ultrasound. 7. Cardiomegaly with pulmonary vascular congestion, small left and moderate right pleural effusions and diffuse anasarca with small volume ascites. Findings suggest CHF exacerbation. 8. Right lower lobe atelectasis with masslike consolidation within the right middle lobe which may r epresent metastasis versus atelectasis/infection. Continued follow-up is recommended.
--- NOTE | 2022-08-18 10:43 | P.PN ---
Subjective Patient is seen for follow-up for end-stage renal disease Scheduled for hemodialysis today. Patient is confused today. He states that he has already had his dialysis and is ready to be discharged home. Confusion has increased as per nursing staff. No new fever nausea vomiting abdominal pain. Patient is being followed by neurology. Objective - Vital Signs Vital signs: Vital Signs Temp 97.3 F L 08/18/22 08:00 Pulse 100 08/18/22 08:00 Resp 16 08/18/22 08:00 BP 142/70 08/18/22 08:00 Pulse Ox 97 08/18/22 08:00 FiO2 Intake & Output 08/17/22 08/18/22 08/18/22 18:59 06:59 18:59 Intake Total 1020 540 Balance 1020 540 Weight 53.2 kg Intake: Oral 1020 540 Other: Voiding Method Urinal Urinal - Exam Patient is awake, comfortable, no acute distress Examination of the heart S1 and S2 Examination lungs bilateral breath sounds are heard Abdomen is soft nontender Abdomen is soft nontender Examination lower extremity shows no significant edema Patient has left arm AV fistula - Labs CBC & Chem 7: 08/17/22 10:15 08/17/22 10:15 Labs: Abnormal Lab Results - Last 24 Hours (Table) 08/17/22 08/17/22 Range/Units 10:15 10:15 WBC 2.3 L (3.8-10.6) k/uL RBC 2.92 L (4.30-5.90) m/uL Hgb 7.5 L (13.0-17.5) gm/dL Hct 25.2 L (39.0-53.0) % MCHC 29.7 L (31.0-37.0) g/dL RDW 18.0 H (11.5-15.5) % Plt Count 111 L (150-450) k/uL Lymphocytes # 0.3 L (1.0-4.8) k/uL Chloride 97 L (98-107) mmol/L BUN 49 H (9-20) mg/dL Creatinine 6.00 H (0.66-1.25) mg/dL Calcium 10.5 H (8.4-10.2) mg/dL Assessment and Plan Assessment: 1. End-stage renal disease on hemodialysis on a Monday yoni cifuentes 2. Mental status changes, had improved initially. Been followed by neurology. Mentation seems to be worsening again 3. 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 Patient will be started on Sensipar 4. Anemia with end-stage renal disease and history of GI bleed. No active bleeding noted 5. History of renal cell cancer status post right nephrectomy. Large left cystic mass noted on MRI on 03/30/2022 Plan: Hemodialysis today Continue Sensipar and Aranesp Check CT of the abdomen to evaluate left renal cyst possibly hemorrhagic on MRI in March 2022.
[2022-08-18] MEDS: HEPARIN SODIUM,PORCINE/PF 5,000 UNIT/0.5 ML SYRINGE SQ SCH ×2 (10:44→20:16)
[2022-08-18] MEDS: ASPIRIN 81 MG PO SCH (11:26)
[2022-08-18] MEDS: hydrALAZINE HCL 50 MG TAB PO SCH ×2 (11:26→20:17)
[2022-08-18] MEDS: ISOSORBIDE MONONITRATE ER 30 MG TAB.ER.24H PO SCH (11:26)
[2022-08-18] MEDS: QUEtiapine 25 MG TAB PO SCH (11:26)
[2022-08-18] MEDS: FAMOTIDINE 20 MG TAB PO SCH (11:26)
[2022-08-18] MEDS: ATORVASTATIN 40 MG TAB PO SCH (11:26)
[2022-08-18] MEDS: CLOPIDOGREL 75 MG TAB PO SCH (11:26)
[2022-08-18 14:55] VITALS: BMI 18.3
--- NOTE | 2022-08-18 20:13 | P.PN ---
Subjective Progress Note Date: 08/18/22 This is a 66 year old male who is admitted for altered mental status and has been confused with family reporting worsening confusion over the last weeks patient is currently alert x 2-3. Patient had missed his scheduled hemodialysis appointment and family had gone over to check on the patient and found him to be significantly altered and brought in for evaluation. Patient has medical history of renal disease, hypertension, myocardial infarction, thyroid cancer. Usually alert x 4. Patient is a former smoker. He was recently treated with levofloxacin outpatient 2 weeks ago. Apparently patient has not been taking his medications at home. He makes statements about his cat and being suspicious of his cat and his cats friend as the reason for his hospital stay. He had a parathyroid scan done recently as outpatient showing no evidence for mediastinal uptake to suggest mediastinal parathyroid adenoma. Initial lab work reveals a white count of 2.8, hemoglobin of 8.2, platelet count of 114, d-dimer 3.29, INR 1.2, BUN/creatinine of 49 and 7.51. Calcium is elevated at 11, magnesium 2.4, troponin elevation of 0.090, 0.13, 0.327. The lipid panel was essentially normal. Chest x-ray on admission shows cardiomegaly with pulmonary vascular congestion and bilateral pleural effusions. Patient is scheduled to undergo hemodialysis today, neurology, nephrology, and cardiology services have been consulted. At the time of examination patient states his breathing has significant improved, denying shortness of breath, no chest pain, no nausea vomiting or diarrhea. 08/13/2022 Patient evaluated today during hemodialysis. Mentation has improved, patient does continue with significant weakness. Iron studies have been completed revealing Ferritin of 3974, iron 25 and TIBC 158. ProBNP on admission was found to be 324,000. Patient does have history of myelodysplastic disorder and hematology is following patient is undergoing work up due to hypercalcemia. Patient had brain CT done which is negative for enhancing lesion or acute intracranial process. Neurology is recommending EEG. TSH of 16.800, Free T4 of 1.36. PTH intact elevated at 155. Phosphorous remains elevated at 5.6. 08/14/2022 Patient is evaluated today sitting up in bed. He is more awake and alert than yesterday currently only alert to person though he is unsure the time and where he is. Patient is being followed by neurology and recommending EEG which is ordered for tomorrow. Patient is currently hemodynamically stable. Will need ECF placement on discharge due to significant weakness. 08/15/2022 Patient is evaluated today on the medical floor. Patient to resume normal TTS hemodialysis schedule tomorrow. Alert x 4 today mentation has improved. Patient is currently pending EEG and neurology is following closely. Unable to undergo MRI. Hematology following, hemoglobin is 7.5 today, white count of 2.4, platelet count of 90. Patient has been started on darbepoetin. Discussed with case management services discharge planning, plan is for [facility] on discharge. 08/16/2022 Patient is seen and evaluated in follow-up today with cardiology, neurology, and nephrology following. Patient underwent EEG yesterday showing encephalopathy with no epileptiform discharges noted. Patient's mentation is improved and baseline. Patient is receiving hemodialysis today and maintained on Monday//Monday schedule and will continue. Nephrology following adding Sensipar and will follow-up outpatient. Patient with significant weakness with case management/social work following working on discharge planning to [facility] and patient has been accepted. Patient will require 3 night hospitalization stay according to insurance guidelines prior to discharge to ECF. Patient is afebrile with no reports of nausea or vomiting noted. Patient is tolerating diet and denies any chest pain or shortness of breath. Recommend physical therapy evaluation daily. 08/17/2022 Patient is seen in follow-up this morning with nephrology following maintained on Monday//Monday dialysis with tomorrow morning being another session and then will be discharging to [facility] for continued weakness. Encouraged oral intake and increased activity as tolerated. Patient is currently afebrile with no reports of chest pain or shortness of breath noted. Patient is tolerating diet with no reports of nausea or vomiting noted. Social work following working on discharge planning and patient has been accepted at [facility]. 08/18/2022 Patient is seen and evaluated in follow-up currently awaiting to receive hemodialysis. Apparently per nursing staff there is not enough dialysis techs available today and patient will not be able to receive dialysis until sometime this afternoon. Patient was tentatively scheduled to go to [facility] once dialysis was completed this morning. Patient will receive dialysis when tech is available and plans for discharge to [facility] in the a.m. Patient is afebrile denies chest pain or shortness of breath with no reports of nausea or vomiting noted tolerating diet. REVIEW OF SYSTEMS: CONSTITUTIONAL: No fever, no malaise, no fatigue. HEENT: No recent visual problems or hearing problems. Denied any sore throat. CARDIOVASCULAR: No chest pain, orthopnea, PND, no palpitations, no syncope. PULMONARY: No shortness of breath, no cough, no hemoptysis. GASTROINTESTINAL: No diarrhea, no nausea, no vomiting, no abdominal pain. NEUROLOGICAL: No headaches, reports generalized weakness, no numbness. PHYSICAL EXAMINATION: GENERAL: The patient is alert and oriented x2-3, Thin built, elderly appearing Well developed HEENT: Pupils are round and equally reacting to light. EOMI. No scleral icterus. No conjunctival pallor. Normocephalic, atraumatic. No pharyngeal erythema. No thyromegaly. CARDIOVASCULAR: S1 and S2 muffled PULMONARY: Chest is clear to auscultation, no wheezing or crackles. ABDOMEN: Soft, nontender, nondistended, normoactive bowel sounds. No palpable organomegaly. MUSCULOSKELETAL: No joint swelling or deformity. EXTREMITIES: No cyanosis, clubbing, or pedal edema. Large left fistula noted currently undergoing hemodialysis today NEUROLOGICAL: Gross neurological examination did not reveal any focal deficits. Diffused weakness. SKIN: No rashes. Left AV fistula in place. Assessment: Acute CHF exacerbation with systolic dysfunction, EF is 35% Volume overload secondary to missed hemodialysis Acute hypoxic respiratory failure secondary to volume overload weaned FiO2 currently on room air Altered mental status likely acute metabolic encephalopathy from renal failure Elevated D-Dimer Electrolyte imbalance with elevated magnesium, phosphorous and calcium End stage renal disease maintained on hemodialysis Monday//Monday Anemia of chronic disease Hx of myelodysplastic disorder Mild aortic stenosis History of thyroid cancer Hypertension S/P right nephrectomy Hx myocardial infarction Former Smoker GI prophylaxis DVT prophylaxis Full Code Plan: Patient is being followed by multiple consultations including neurology, cardiology, nephrology. Patient scheduled to receive dialysis today and will continue on Monday//Monday schedule. Nephrology following and has added Sensipar and Aranesp recommending close outpatient follow-up Patient was scheduled to go to [facility] after dialysis although they are down staff with dialysis and not being able to be done until after 4 PM today causing a delay in discharge and will discharge to [facility] in the a.m. Currently on room air maintaining oxygen saturations of 96-99% Patient unable to care for himself at home, patient has been accepted at [facility] with case management following and Plan is for discharge tomorrow to [facility] facility The impression and plan of care has been dictated by Sulema Crawford, Nurse Practitioner as directed. Dr. Jose Luis MD I have performed a history and examination and MDM of this patient, discussed the same with the dictator, and agree with the dictator's assessment and plan as written ,documented as a scribe. Based on total visit time, I have performed more than 50% of the visit. Objective - Vital Signs Vital signs: Vital Signs Temp 97.3 F L 08/18/22 18:06 Pulse 77 08/18/22 18:06 Resp 18 08/18/22 18:06 BP 111/74 08/18/22 18:06 Pulse Ox 97 08/18/22 16:00 FiO2 Intake & Output 08/18/22 08/18/22 08/19/22 06:59 18:59 06:59 Intake Total 1058 Output Total 1400 Balance -342 Weight 53.2 kg 53.2 kg Intake: Oral 658 Hemodialysis 400 Output: Hemodialysis 1400 Other: Voiding Method Urinal Urinal - Labs CBC & Chem 7: 08/17/22 10:15 08/17/22 10:15
[2022-08-18] MEDS: SODIUM CHLORIDE 0.9% 1,000 ML IV SCH (20:25)
[2022-08-19] MEDS: carvediloL 12.5 MG TAB PO SCH (06:13)
[2022-08-19] MEDS: LEVOTHYROXINE 50 MCG TAB PO SCH (06:13)
[2022-08-19] MEDS: QUEtiapine 25 MG TAB PO SCH (08:25)
[2022-08-19] MEDS: CLOPIDOGREL 75 MG TAB PO SCH (08:25)
[2022-08-19] MEDS: FAMOTIDINE 20 MG TAB PO SCH (08:25)
[2022-08-19] MEDS: ASPIRIN 81 MG PO SCH (08:25)
[2022-08-19] MEDS: ATORVASTATIN 40 MG TAB PO SCH (08:25)
[2022-08-19] MEDS: ISOSORBIDE MONONITRATE ER 30 MG TAB.ER.24H PO SCH (08:25)
[2022-08-19] MEDS: hydrALAZINE HCL 50 MG TAB PO SCH (08:25)
[2022-08-19] MEDS: HEPARIN SODIUM,PORCINE/PF 5,000 UNIT/0.5 ML SYRINGE SQ SCH (08:26)
[2022-08-19 08:50] VITALS: BP 127/67; PULSE 74; RESP 18; TEMP 98.5
--- NOTE | 2022-08-19 10:28 | P.DS ---
Providers Date of admission: 08/15/22 09:46 Expected date of discharge: 08/19/22 Attending physician: Shawn Amaya Consults: 08/11/22 15:26 Consult Physician Routine Consulting Provider: Wander Fernando Consult Reason/Comments: known Do you want consulting provider notified?: Yes 08/12/22 10:28 Consult Physician Routine Consulting Provider: Brad Chavis Consult Reason/Comments: hypercalcemia, hx of malignancy Do you want consulting provider notified?: Yes 08/12/22 11:12 Consult Physician Routine Consulting Provider: Joaquin Camacho Consult Reason/Comments: confusion Do you want consulting provider notified?: Already Contacted Primary care physician: Wander Fernando Hospital Course: Final diagnosis Acute CHF exacerbation with systolic dysfunction, EF is 35% Volume overload secondary to missed hemodialysis Acute hypoxic respiratory failure secondary to volume overload, improved Altered mental status likely acute metabolic encephalopathy from renal failure Elevated D-Dimer Electrolyte imbalance with elevated magnesium, phosphorous and calcium End stage renal disease maintained on hemodialysis Monday//Monday Anemia of chronic disease Hx of myelodysplastic disorder Mild aortic stenosis History of thyroid cancer Hypertension S/P right nephrectomy Hx myocardial infarction Former Smoker GI prophylaxis DVT prophylaxis Full Code Discharge disposition Patient is being discharged in a stable condition with guarded prognosis to [facility]. Patient will follow-up with Dr. Fernando in the outpatient setting upon discharge. Patient is to continue with hemodialysis as scheduled on Monday//Monday and next session is due tomorrow. Total time taken is greater than 35 minutes. Hospital course This is a 66-year-old male who was recently admitted with confusion and altered mental status and missed hemodialysis. Patient being followed and evaluated closely with nephrology undergoing hemodialysis on Monday//Monday and mentation improved. Patient continues with intermittent periods of confusion and weakness and was evaluated by physical therapy recommending rehab inpatient agreeable. Son would like the patient to go to [facility] for strength and mobility. Patient is currently to receive hemodialysis on Monday. Patient has been cleared by consultations for discharge. Please refer to consultation note for further HPI. Currently no reports of chest pain, shortness of breath, or palpitations. Patient is afebrile. No reports of nausea or vomiting and patient is tolerating diet. Patient will be going to [facility] today. Guarded prognosis. Physical exam: Gen: This is a 66-year-old male who is awake, alert and oriented 2, thin built, elderly appearing HEENT: Head is atraumatic, normocephalic. Pupils equal, round. Sclerae is anicteric. NECK: Supple. No JVD. No lymphadenopathy. No thyromegaly. LUNGS: Clear to auscultation. No wheezes or rhonchi. No intercostal retrac tions. HEART: Regular rate and rhythm. No murmur. ABDOMEN: Soft. Bowel sounds are present. No masses. No tenderness. EXTREMITIES: No pedal edema. No calf tenderness. NEUROLOGICAL: Patient is awake, alert and oriented x3. Cranial nerves 2 through 12 are grossly intact. Diffusely weak Please refer to medication reconciliation sheet for a list of medications. The impression and plan of care has been dictated by Sulema Crawford, Nurse Practitioner as directed. Dr. Aileen MD I have performed a history and examination and MDM of this patient, discussed the same with the dictator, and agree with the dictator's assessment and plan as written ,documented as a scribe. Based on total visit time, I have performed more than 50% of the visit. Patient Condition at Discharge: Fair Plan - Discharge Summary Discharge Rx Participant: No New Discharge Prescriptions: New hydrALAZINE HCL [Apresoline] 50 mg PO BID tab Aspirin 81 mg PO DAILY tab carvediloL [Coreg*] 12.5 mg PO BID-W/MEALS tab Isosorbide Mononitrate ER [Imdur] 30 mg PO DAILY tab Atorvastatin [Lipitor] 40 mg PO DAILY tab Clopidogrel [Plavix] 75 mg PO DAILY tab Darbepoetin Juan[place] [Aranesp] 60 mcg SQ Q7D each Heparin Sodium,Porcine [Heparin Sodium] 5,000 unit SQ Q12HR #60 each Famotidine [Pepcid] 20 mg PO DAILY tab Cinacalcet [Sensipar] 30 mg PO WEEKLY tab QUEtiapine [SEROquel] 25 mg PO DAILY tab Levothyroxine Sodium [Synthroid] 50 mcg PO DAILY@0630 tab Discharge Medication List Aspirin 81 mg PO DAILY tab 08/18/22 [Rx] Atorvastatin [Lipitor] 40 mg PO DAILY tab 08/18/22 [Rx] Cinacalcet [Sensipar] 30 mg PO WEEKLY tab 08/18/22 [Rx] Clopidogrel [Plavix] 75 mg PO DAILY tab 08/18/22 [Rx] Darbepoetin Juanpablo [Aranesp] 60 mcg SQ Q7D each 08/18/22 [Rx] Famotidine [Pepcid] 20 mg PO DAILY tab 08/18/22 [Rx] Heparin Sodium,Porcine [Heparin Sodium] 5,000 unit SQ Q12HR #60 each 08/18/22 [Rx] Isosorbide Mononitrate ER [Imdur] 30 mg PO DAILY tab 08/18/22 [Rx] Levothyroxine Sodium [Synthroid] 50 mcg PO DAILY@0630 tab 08/18/22 [Rx] QUEtiapine [SEROquel] 25 mg PO DAILY tab 08/18/22 [Rx] carvediloL [Coreg*] 12.5 mg PO BID-W/MEALS tab 08/18/22 [Rx] hydrALAZINE HCL [Apresoline] 50 mg PO BID tab 08/18/22 [Rx] Follow up Appointment(s)/Referral(s): Brad Chavis MD [STAFF PHYSICIAN] - As Needed (per pt request) Wander Fernando DO [Primary Care Provider] - 1-2 days Activity/Diet/Wound Care/Special Instructions: Patient is going to [facility] Activity as tolerated Continue renal diet Continue with hemodialysis Monday//Monday Follow-up with primary care provider on discharge follow-up with nephrology outpatient Discharge Disposition: TRANSFER TO SNF/ECF
--- NOTE | 2022-08-19 11:51 | P.PN ---
Subjective Patient is seen for follow-up for end-stage renal disease Status post dialysis late yesterday. Plans for discharge today to ECF. Abdominal CT ordered yesterday to follow-up on the previous left renal cystic mass. Lesion noted in the right lung as well. Patient follows with oncology. Objective - Vital Signs Vital signs: Vital Signs Temp 98.5 F 08/19/22 07:06 Pulse 74 08/19/22 07:06 Resp 18 08/19/22 10:25 BP 127/67 08/19/22 07:06 Pulse Ox 96 08/19/22 07:06 FiO2 Intake & Output 08/18/22 08/19/22 08/19/22 18:59 06:59 18:59 Intake Total 1058 Output Total 1400 Balance -342 Weight 53.2 kg Intake: Oral 658 Hemodialysis 400 Output: Hemodialysis 1400 Other: Voiding Method Urinal Urinal Urinal # Voids 0 1 # Bowel Movements 1 - Exam Patient is awake, comfortable, no acute distress Examination of the heart S1 and S2 Examination lungs bilateral breath sounds are heard Abdomen is soft nontender Abdomen is soft nontender Examination lower extremity shows no significant edema Patient has left arm AV fistula - Labs CBC & Chem 7: 08/17/22 10:15 08/17/22 10:15 Assessment and Plan Assessment: 1. End-stage renal disease on hemodialysis on a Monday schedule 2. Mental status changes, improved. Been followed by neurology. 3. 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 Patient will be started on Sensipar 4. Anemia with end-stage renal disease and history of GI bleed. No active bleeding noted 5. History of renal cell cancer status post right nephrectomy. Large left cystic mass noted on MRI on 03/30/[address] yesterday which showed decrease in size of the left renal fossa cystic mass. Lesion was noted in the right lung as well. Patient will need to follow-up as outpatient with oncology. Plan: Hemodialysis in a.m. Continue Sensipar and Aranesp Follow-up with oncology as outpatient
[2022-08-23] MEDS ORDERED: CINACALCET 30 MG TAB PO SCH (09:00)
== END 2022-08-19 13:01 | DRG 291 ==
LOC: EC 12:54 → 3SCARD 15:29 → OBSVTOIN 08-15 09:46 → 4SSUR 08-18 18:52
PROVIDERS: ADMIT Hospitalist; ATTEND Hospitalist
PROC: 5A1D70Z Performance of Urinary Filtration, Intermittent, Less than 6 Hours Per Day (ICD-10-PCS; principal; 2022-08-15)
DX: I13.2 Hypertensive heart and chronic kidney disease with heart failure and with stage 5 chronic kidney disease, or end stage renal disease (principal); G93.41 Metabolic encephalopathy; I50.23 Acute on chronic systolic (congestive) heart failure; J96.01 Acute respiratory failure with hypoxia; N18.6 End stage renal disease; E44.0 Moderate protein-calorie malnutrition; D61.818 Other pancytopenia; N17.9 Acute kidney failure, unspecified; Z68.1 Body mass index [BMI] 19.9 or less, adult; I25.5 Ischemic cardiomyopathy; I25.2 Old myocardial infarction; I35.0 Nonrheumatic aortic (valve) stenosis; E83.39 Other disorders of phosphorus metabolism; E83.52 Hypercalcemia; E86.0 Dehydration; D46.21 Refractory anemia with excess of blasts 1; D63.1 Anemia in chronic kidney disease; E78.5 Hyperlipidemia, unspecified; I25.10 Atherosclerotic heart disease of native coronary artery without angina pectoris; E83.9 Disorder of mineral metabolism, unspecified; R79.1 Abnormal coagulation profile; Z99.2 Dependence on renal dialysis; Z79.02 Long term (current) use of antithrombotics/antiplatelets; Z79.82 Long term (current) use of aspirin; Z79.890 Hormone replacement therapy; Z82.49 Family history of ischemic heart disease and other diseases of the circulatory system; Z85.850 Personal history of malignant neoplasm of thyroid; Z85.528 Personal history of other malignant neoplasm of kidney; Z87.891 Personal history of nicotine dependence; Z90.5 Acquired absence of kidney; Z91.158 Patient's noncompliance with renal dialysis for other reason; Z91.148 Patient's other noncompliance with medication regimen for other reason; Z95.5 Presence of coronary angioplasty implant and graft; Z28.21 Immunization not carried out because of patient refusal; Z87.440 Personal history of urinary (tract) infections; Z71.3 Dietary counseling and surveillance
CPT/HCPCS: 36415; 70470; 71046; 74176; 80048; 80053; 80061; 82140; 82164; 82306; 82330; 82607; 82652; 82728; 82746; 83540; 83550; 83605; 83735; 83880; 83883; 83970; 84100; 84165; 84439; 84443; 84484; 85025; 85027; 85379; 85610; 85730; 86334; 86706; 87340; 90935; 93005; 93306; 94640; 94760; 95816; 99285